=== PATIENT | female | born 1970 | race Caucasian/White ===

== ENCOUNTER 2016-11-10 15:26 | Inpatient (IN) | payer OTHER ==
[~2016-11-10] VITALS: Ht 167.6 cm; Wt 80.0 kg
[~2016-11-10 15:26] MED LIST: ALBU0.086 NEB; ALBU8I INH; CLIN1CAP5 PO; DILA4TAB10 PO; DUONI INH; NAPR500 PO; PENI500T PO; SYMB160A INH; VENTAER INH
[2016-11-10 15:28] VITALS: BP 127/80; PULSE 102; RESP 14; TEMP 99; O2SAT 95
[2016-11-10] MEDS ORDERED: ALBU.5I NEB (17:30)
[2016-11-10] MEDS ORDERED: DILA4TAB2 PO (17:30)
[2016-11-10] MEDS ORDERED: ALBU6.7H INH (17:30)
[2016-11-10] MEDS ORDERED: IBUP800T23 PO (17:30)
[2016-11-10 18:06] VITALS: O2SAT 95
[2016-11-10] MEDS ORDERED: DEXAMETHASONE SOD PHOS 4 MG/ML VIAL IM ONE (18:15)
--- NOTE | 2016-11-10 18:16 | PD ---
HPI Chief Complaint: Skin Problem Time Seen by Provider: 17:33 Travel History International Travel<30 days: No Contact w/Intl Traveler<30days: No Traveled to known affect area: No History of Present Illness HPI 46 years old female complains of coughing congestion and wheezing and infected lesions on the lower extremity. Patient has history of COPD. Patient is a smoker. Patient states that she has increasing coughing congestion shortness of breath for the past few days. Patient states that she has intermittent fever at home recently. Patient also has history of recurrent low extremity pain, redness and discharge from chronic ulcer with infections. PFSH Past Medical History Anemia: Yes Arthritis: Yes Asthma: Yes Autoimmune Disease: Yes (Levido vasculitis) Anxiety: Yes Depression: Yes Heart Rhythm Problems: No Cancer: No Cardiovascular Problems: No High Cholesterol: No Chest Pain: Yes Congestive Heart Failure: No COPD: Yes Diabetes: No Diminished Hearing: No Endocrine: No Genitourinary: No Hypertension: No Immune Disorder: No Implanted Vascular Access Dvce: Yes Musculoskeletal: Yes (healed ulcers, vascular disease) Neurologic: No Psychiatric: Yes Reproductive: No Respiratory: Yes (COPD ) Integumentary: Yes (LIVEDO VASCULITIS) Immunizations Current: Yes Pneumonia: Yes Thyroid Disease: No Ulcer: Yes PNEUMOCCOCAL Vaccine (Year): 2 ?: Not LMP: 10/10/16 Menopausal: Yes : 1 Para: 1 Miscarriage: 0 : 0 Past Surgical History Abdominal Surgery: No Body Medical Devices: plates and screws to left elbow Cardiac Surgery: No Section: Yes (1997) Ear Surgery: No Endocrine Surgery: No Eye Surgery: No Genitourinary Surgery: No Gynecologic Surgery: Yes ( ) Oral Surgery: No Pacemaker: No Thoracic Surgery: No Tonsillectomy: Yes (T/A) Other Surgery: Yes (CYST REMOVED FROM LEFT BREAST) Family History Family Myocardial Infarction: Yes (MOM AND DAD) Social History Alcohol Use: Yes (RARELY) Tobacco Use: No Substance Use: No Allergies-Medications (Allergen,Severity, Reaction): Coded Allergies: No Known Allergies (Verified , 11/10/16) Reported Meds & Prescriptions Reported Meds & Active Scripts Active Reported Proventil Hfa 6.7 GM Inh (Albuterol Sulfate) 90 Mcg/Act Aer 2 Puff INH Q4-6H PRN Albuterol Neb (Albuterol Sulfate) 2.5 Mg/0.5 Ml Neb 2.5 Mg NEB TID NEB PRN Note: The Albuterol Sulfate Inhalation Solution is concentrated and must be diluted. Read complete instructions carefully before using. Ibuprofen 800 Mg Tab 800 Mg PO Q6HR PRN Dilaudid (Hydromorphone HCl) 4 Mg Tab 4 Mg PO Q4H PRN Review of Systems General / Constitutional: Positive: Fever Eyes: No: Visual changes HENT: No: Headaches Cardiovascular: No: Chest Pain or Discomfort Respiratory: Positive: Cough, Shortness of Breath, Wheezing Gastrointestinal: No: Abdominal Pain Genitourinary: No: Dysuria Musculoskeletal: No: Pain Skin: No Rash Neurologic: No: Weakness Psychiatric: No: Depression Endocrine: No: Polydipsia Hematologic/Lymphatic: No: Easy Bruising Physical Exam Narrative GENERAL: Well-nourished, well-developed patient. SKIN: Focused skin assessment warm/dry. HEAD: Normocephalic. EYES: No scleral icterus. No injection or drainage. NECK: Supple, trachea midline. No JVD or lymphadenopathy. CARDIOVASCULAR: Regular rate and rhythm without murmurs, gallops, or rubs. RESPIRATORY: Patient has moderate expiratory wheezes bilaterally with rhonchi bibasilar. GASTROINTESTINAL: Abdomen soft, non-tender, nondistended. MUSCULOSKELETAL: Patient has ulcer lesions on her left lower extremity and right lower extremity. Patient has large ulcer lesions on the medial aspect of left lower leg discharge and redness swelling associate with that. BACK: Nontender without obvious deformity. No CVA tenderness. Neurologic exam normal. Data Data Last Documented VS Vital Signs Date Time Temp Pulse Resp B/P Pulse Ox O2 Delivery O2 Flow Rate FiO2 11/10/16 18:58 92 17 11/10/16 18:57 132/71 98 Room Air 11/10/16 18:06 2 11/10/16 15:28 99.0 Orders Vascular Access Team Consult PRN (11/10/16 17:33) Complete Blood Count With Diff (11/10/16 17:53) Comprehensive Metabolic Panel (11/10/16 17:53) Prothrombin Time / Inr (Pt) (11/10/16 17:53) Act Partial Throm Time (Ptt) (11/10/16 17:53) Blood Culture (11/10/16 17:53) Urinalysis - C+S If Indicated (11/10/16 17:53) Wound Culture And Gram Stain (11/10/16 17:53) Chest, Single Ap (11/10/16 17:53) Iv Access Insert/Monitor (11/10/16 17:53) Ecg Monitoring (11/10/16 17:53) Oximetry (11/10/16 17:53) Lactic Acid (11/10/16 17:53) Albuterol-Ipratropium Neb (Duoneb Neb) (11/10/16 18:15) Dexamethasone Inj (Decadron Inj) (11/10/16 18:15) Vascular Poc Ultrasound (11/10/16 ) Labs Laboratory Tests Test 11/10/16 18:00 White Blood Count 6.3 TH/MM3 Red Blood Count 5.35 MIL/MM3 Hemoglobin 12.9 GM/DL Hematocrit 40.5 % Mean Corpuscular Volume 75.6 FL Mean Corpuscular Hemoglobin 24.1 PG Mean Corpuscular Hemoglobin 31.8 % Concent Red Cell Distribution Width 17.9 % Platelet Count 217 TH/MM3 Mean Platelet Volume 8.7 FL Neutrophils (%) (Auto) 60.8 % Lymphocytes (%) (Auto) 24.6 % Monocytes (%) (Auto) 8.9 % Eosinophils (%) (Auto) 4.5 % Basophils (%) (Auto) 1.2 % Neutrophils # (Auto) 3.8 TH/MM3 Lymphocytes # (Auto) 1.5 TH/MM3 Monocytes # (Auto) 0.6 TH/MM3 Eosinophils # (Auto) 0.3 TH/MM3 Basophils # (Auto) 0.1 TH/MM3 CBC Comment AUTO DIFF Prothrombin Time 11.1 SEC Prothromb Time International 1.0 RATIO Ratio Activated Partial 29.2 SEC Thromboplast Time Sodium Level 137 MEQ/L Potassium Level 4.4 MEQ/L Chloride Level 103 MEQ/L Carbon Dioxide Level 26.4 MEQ/L Anion Gap 8 MEQ/L Blood Urea Nitrogen 8 MG/DL Creatinine 0.73 MG/DL Estimat Glomerular Filtration 86 ML/MIN Rate Random Glucose 74 MG/DL Lactic Acid Level 0.7 mmol/L Calcium Level 8.9 MG/DL Total Bilirubin 0.5 MG/DL Aspartate Amino Transf 18 U/L (AST/SGOT) Alanine Aminotransferase 20 U/L (ALT/SGPT) Alkaline Phosphatase 77 U/L Total Protein 7.4 GM/DL Albumin 3.5 GM/DL MDM Medical Decision Making Medical Screen Exam Complete: Yes Emergency Medical Condition: Yes Medical Record Reviewed: Yes Interpretation(s) Last Impressions Chest X-Ray 11/10/16 2503 Signed Impressions: Service Date/Time: Thursday, November 10, 2016 17:55 - CONCLUSION: No acute disease. Alfredo Navarro MD FACR Differential Diagnosis Differential diagnosis including acute exacerbation of COPD, bronchitis, pneumonia, cellulitis, abscess. Narrative Course 46 years old female with coughing and congestion wheezing and large ulcer lesions bilateral lower extremity. Albuterol with Atrovent unit dose treatment 3. Decadron 8 mg IM. Vancomycin 1 g IV given. Diagnosis Primary Impression: Cellulitis Qualified Code: L03.119 - Cellulitis of lower extremity, unspecified laterality Additional Impression: COPD with acute exacerbation Admitting Information Admitting Physician Requests: Admit Jon Byrd MD Nov 10, 2016 18:16
--- NOTE | 2016-11-10 18:18 | RADRPT ---
EXAM DATE/TIME: 11/10/2016 17:55 [facility] COMPARISON: CHEST SINGLE AP, April 03, 2016, 9:38. INDICATIONS : Shortness of breath and cough for the past two weeks. MEDICAL HISTORY : Chronic obstructive pulmonary disease. SURGICAL HISTORY : None. ENCOUNTER: Initial ACUITY: 2 weeks PAIN SCORE: 5/10 LOCATION: Bilateral chest FINDINGS: A single view of the chest demonstrates the lungs to be symmetrically aerated without evidence of mas s, infiltrate or effusion. The cardiomediastinal contours are unremarkable. Osseous structures are intact. CONCLUSION: No acute disease. Alfredo Navarro MD FACR on November 10, 2016 at 18:16 Board Certified Radiologist. This report was verified electronically.
[2016-11-10 18:28] LABS: AUTOMATED NEUTROPHIL # 3.8 TH/MM3 (1.8-7.7); BASOPHIL # 0.1 TH/MM3 (0-0.2); BASOPHIL % 1.2 % (0.0-2.0); EOSINOPHIL # 0.3 TH/MM3 (0-0.4); EOSINOPHIL % 4.5 % (0.0-4.0); HEMATOCRIT 40.5 % (35.0-46.0); LYMPH % 24.6 % (9.0-44.0); LYMPHOCYTE # 1.5 TH/MM3 (1.0-4.8); MEAN CELL VOLUME 75.6 FL (80.0-100.0); MEAN CORPUSCULAR HEMOGLOBIN 24.1 PG (27.0-34.0); MEAN CORPUSCULAR HGB CONC 31.8 % (32.0-36.0); MONO % 8.9 % (0.0-8.0); NEUT % 60.8 % (16.0-70.0); PLATELET COUNT 217 TH/MM3 (150-450); RED BLOOD COUNT 5.35 MIL/MM3 (4.00-5.30); RED CELL DISTRIBUTION WIDTH 17.9 % (11.6-17.2); WHITE BLOOD COUNT 6.3 TH/MM3 (4.0-11.0)
[2016-11-10 18:33] LABS: HEMO FLAGS AUTO DIFF
[2016-11-10 18:45] LABS: APTT (PATIENT) 29.2 SEC (24.3-30.1); PROTHROMBIN TIME - PATIENT 11.1 SEC (9.8-11.6)
[2016-11-10 18:47] LABS: ALT (GPT) 20 U/L (10-53); ANION GAP 8 MEQ/L (5-15); AST (GOT) 18 U/L (15-37); BICARBONATE 26.4 MEQ/L (21.0-32.0); BLOOD UREA NITROGEN 8 MG/DL (7-18); CHLORIDE 103 MEQ/L (98-107); GLOMERULAR FILTRATION RATE 86 ML/MIN (>89); POTASSIUM 4.4 MEQ/L (3.5-5.1); SODIUM (NA) 137 MEQ/L (136-145)
[2016-11-10 18:52] LABS: ALKALINE PHOSPHATASE 77 U/L (45-117); TOTAL BILIRUBIN ADULT 0.5 MG/DL (0.2-1.0)
[2016-11-10] MEDS: RESP: ALBUTEROL 2.5 MG/IPRATROPIUM 0.5 MG NEB (SCH) INH (18:54)
[2016-11-10 18:57] VITALS: BP 132/71; PULSE 97; RESP 17; O2SAT 98
[2016-11-10 19:11] LABS: OVALOCYTES 1+ (NORMAL)
[2016-11-10 19:12] LABS: PLATELET ESTIMATE SMEAR NORMAL (NORMAL); PLATELET MORPHOLOGY NORMAL (NORMAL); SCAN/DIFF AUTO DIFF CONFIRMED
[2016-11-10] MEDS ORDERED: VANCOMYCIN INJ 1,000 MG in SODIUM CHLOR 0.9% 250 ML INJ 250 ML IV ONE (19:15)
--- NOTE | 2016-11-10 19:21 | HHI.HP ---
HPI Service Family Medicine team B Attending: Dr. Birtton PGY-3: Dr. Elsi Mays PGY-2: Dr. Cao PGY-1: Dr. Kat Primary Care Physician No Primary Care Physician Admission Diagnosis LE cellulitis and ulcer COPD exacerbation Diagnoses: (1) COPD exacerbation (2) Ulcer of left ankle Chief Complaint: shortness of breath LE ulcers International Travel<30 Days: No Contact w/Intl Traveler<30days: No Known Affected Area: No History of Present Illness Patient is a 45-year-old female with history of livedoid vasculitis, chronic skin ulcers, and COPD who presents for evaluation of worsening shortness of breath as well as bilateral lower extremity ulcers. She reports having flu-like symptoms with congestion and sore throat for the past 2.5 weeks. She was seen at a local urgent care and went through two rounds of oral antibiotics but reports no improvement of her symptoms. She also uses Albuterol at home which has not helped either. Endorses associated dry cough, wheezing, chills, and fever (up to 102 last night). No chest pain or palpitations. As for her lower extremity wounds, states that redness and swelling started 3 weeks ago after she started her new job. Again, she went to the urgent care and got Clindamycin but symptoms did not improve. Cellulitis and ulcers have gotten worse. Endorses associated crusting and copious amount of purulent discharge from the ulcers. Of note, she has had multiple episodes of similar ulcers in her LEs in the past related to livedoid vasculitis. However has not had an episode since 2016. Review of Systems Constitutional: COMPLAINS OF: Fever, Chills, Night Sweats, DENIES: Weight gain , Weight loss, Change in appetite Eyes: DENIES: Blurred vision Respiratory: COMPLAINS OF: Cough, Wheezing, Shortness of breath, DENIES: Hemoptysis, Sputum production Cardiovascular: COMPLAINS OF: Dyspnea on Exertion, Lower Extremity Edema, DENIES: Chest pain, Palpitations, Syncope Gastrointestinal: DENIES: Black stools, Bloody stools, Diarrhea, Nausea, Vomiting Integumentary: COMPLAINS OF: Rash Neurologic: DENIES: Headache, Paresthesias Past Family Social History Past Medical History Livedoid vasculitis, diagnosed 15 years ago COPD Chronic lower extremity ulcers GERD Past Surgical History Left elbow surgery with hardware placement Tonsillectomy [place] teeth extraction Left breast cyst removed 1 Reported Medications Proventil Hfa 6.7 GM Inh (Albuterol Sulfate) 90 Mcg/Act Aer 2 Puff INH Q4-6H PRN Albuterol Neb (Albuterol Sulfate) 2.5 Mg/0.5 Ml Neb 2.5 Mg NEB TID NEB PRN Note: The Albuterol Sulfate Inhalation Solution is concentrated and must be diluted. Read complete instructions carefully before using. Ibuprofen 800 Mg Tab 800 Mg PO Q6HR PRN Dilaudid (Hydromorphone HCl) 4 Mg Tab 4 Mg PO Q4H PRN Allergies: Coded Allergies: No Known Allergies (Verified , 11/10/16) Family History Father with diabetes and PVD Mother had hypertension but secondary to breast cancer with mets Grandmother had Alzheimer's disease and heart disease Social History Smoked tobacco, 1/2 to 1 PPD for 25 year but quit 2 years ago. Now smokes occasional E. cigarette Very occasional alcohol use Smokes occasional marijuana, once a week Lives at home with her partner Physical Exam Vital Signs Vital Signs Date Time Temp Pulse Resp B/P Pulse Ox O2 Delivery O2 Flow Rate FiO2 11/10/16 18:58 92 17 11/10/16 18:57 97 17 132/71 98 Room Air 11/10/16 18:06 95 Nasal Cannula 2 11/10/16 17:24 93 26 11/10/16 15:31 11/10/16 15:28 99.0 102 14 127/80 95 Room Air Physical Exam GENERAL: This is a well-nourished, well-developed patient, in no apparent distress. Appears short of breath but able to speak in complete sentences. SKIN: Bilateral lower extremities with significant erythema, left leg with erythema extending to almost mid ray. Both legs with trace edema. There is a large stage 3 ulcerative lesion with purulent discharge on medial aspect of left leg, close to the left ankle. There are some smaller more shallow ulcers on lateral aspect of right leg, close to her ankle. Theses area are extremely tender to palpation. HEAD: Atraumatic. Normocephalic. EYES: Pupils equal round and reactive. Extraocular motions intact. No scleral icterus. No injection or drainage. ENT: Nose without bleeding, purulent drainage or septal hematoma. Throat without erythema, tonsillar hypertrophy or exudate. Uvula midline. Airway patent. NECK: Trachea midline. No JVD or lymphadenopathy. Supple CARDIOVASCULAR: Regular rate and rhythm without murmurs, gallops, or rubs. RESPIRATORY: Diffuse expiratory wheezes throughout all lung bello and bibasilar rhonchi. Coughs with deep inspiration GASTROINTESTINAL: Abdomen soft, non-tender, nondistended. No hepato-splenomegaly , or palpable masses. No guarding. MUSCULOSKELETAL: See "skin" for further details. MAEW but pain with movement of her feet. 2+ dorsalis pedis bilaterally. NEUROLOGICAL: Awake and alert. Cranial nerves II through XII intact. Motor and sensory grossly within normal limits. Five out of 5 muscle strength in all muscle groups. Normal speech. Laboratory Laboratory Tests Test 11/10/16 18:00 White Blood Count 6.3 Red Blood Count 5.35 Hemoglobin 12.9 Hematocrit 40.5 Mean Corpuscular Volume 75.6 Mean Corpuscular Hemoglobin 24.1 Mean Corpuscular Hemoglobin 31.8 Concent Red Cell Distribution Width 17.9 Platelet Count 217 Mean Platelet Volume 8.7 Neutrophils (%) (Auto) 60.8 Lymphocytes (%) (Auto) 24.6 Monocytes (%) (Auto) 8.9 Eosinophils (%) (Auto) 4.5 Basophils (%) (Auto) 1.2 Neutrophils # (Auto) 3.8 Lymphocytes # (Auto) 1.5 Monocytes # (Auto) 0.6 Eosinophils # (Auto) 0.3 Basophils # (Auto) 0.1 CBC Comment AUTO DIFF Differential Comment AUTO DIFF CONFIRMED Platelet Estimate NORMAL Platelet Morphology Comment NORMAL Ovalocytes 1+ Prothrombin Time 11.1 Prothromb Time International 1.0 Ratio Activated Partial 29.2 Thromboplast Time Sodium Level 137 Potassium Level 4.4 Chloride Level 103 Carbon Dioxide Level 26.4 Anion Gap 8 Blood Urea Nitrogen 8 Creatinine 0.73 Estimat Glomerular Filtration 86 Rate Random Glucose 74 Lactic Acid Level 0.7 Calcium Level 8.9 Total Bilirubin 0.5 Aspartate Amino Transf 18 (AST/SGOT) Alanine Aminotransferase 20 (ALT/SGPT) Alkaline Phosphatase 77 Total Protein 7.4 Albumin 3.5 Date/Time Procedure Status Source Growth 11/10/16 18:00 Gram Stain Received Wound Leg Pending 11/10/16 18:00 Wound Culture Received Wound Leg Pending 11/10/16 18:00 Aerobic Blood Culture Received Blood Peripheral Pending 11/10/16 18:00 Anaerobic Blood Culture Received Blood Peripheral Pending Result Diagram: 11/10/16 1800 11/10/16 1800 Imaging Chest X-Ray 11/10/16 3453 Signed Impressions: Service Date/Time: Thursday, November 10, 2016 17:55 - CONCLUSION: No acute disease. Alfredo Navarro MD FACR Assessment and Plan Assessment and Plan Patient is a 45-year-old female with history of livedoid vasculitis, chronic ulcers, COPD, and GERD who presents for evaluation of worsening shortness of breath as well as chronic lower extremity ulcer Code Status FULL Discussed Condition With w/d/w Dr. Britton and medicine team Problem List: (1) Ulcer of left ankle Status: Acute Plan: Patient with history of livedoid vasculitis, recurrent LE ulcers, and osteomyelitis who is admitted for LE cellulitis and ulcers x 3 weeks. She was treated with oral antibiotics as an outpatient but symptoms worsen so she came to the ED for evaluation. Past wound cultures have been positive for s.aureus, sensitive to Vancomycin -Will continue IV Vancomycin 1g Q12hrs. Patient received first dose in ED. -Consult ID for evaluation given her history. 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 Appreciate ID's recommendations -Wound care consult -Check ESR and CRP. Consider imaging to rule out osteomyelitis if ESR is elevated -Dilaudid 4mg po prn pain -Keep LE elevated -Wound and blood cultures pending (2) Cellulitis Status: Acute Plan: See plan above (3) COPD exacerbation Status: Acute Plan: Patient with COPD exacerbation. Had URI symptoms 2.5 weeks ago that did not improve with outpatient oral antibiotics. Symptoms have worsen over the past couple of days. Lung exam significant for diffuse expiratory wheezes and bibasilar rhonchi. VSSAF, O2 sats stable on 2L. No leukocytosis. Normal lactic acid level. Chest x- ray unremarkable. -Patient received 8mg Decadron and Albuterol treatment in the ED. Symptoms somewhat improved s/p treatment. -Continue breathing treatment with Duoneb Q4hr myron and Albuterol Q4hrs prn -Prednisone 40mg po daily -Start Azithromycin 500mg -Monitor O2 and provide supplemental O2 prn (4) Nutrition, metabolism, and development symptoms Status: Acute Plan: Diet: Regular as tolerated Fluids: HLIV; patient tolerating po Electrolytes: WNL. Continue to monitor (5) Prophylactic measure Status: Acute Plan: DVT ppx: Heparin 5000mg BID GI ppx: Protonix 40mg daily since patient is getting steroids Physician Certification 2 Midnight Certification Type: Admission for Inpatient Services Order for Inpatient Services The services are ordered in accordance with Medicare regulations or non- Medicare payer requirements, as applicable. In the case of services not specified as inpatient-only, they are appropriately provided as inpatient services in accordance with the 2-midnight benchmark. Estimated LOS (days): 3 3 days is the estimated time the patient will need to remain in the hospital, assuming treatment plan goals are met and no additional complications. Post-Hospital Plan: Home Problem Qualifiers (1) Cellulitis: Qualified Code: L03.119 - Cellulitis of lower extremity, unspecified laterality Gabrielle Mays MD R3 Nov 10, 2016 19:21
[2016-11-10] MEDS ORDERED: NALOXONE HCL 0.4 MG/ML AMP IV PRN (20:00)
[2016-11-10] MEDS ORDERED: ACETAMINOPHEN 325 MG TAB PO PRN (20:00)
[2016-11-10] MEDS ORDERED: SODIUM CHLORIDE 0.9% FLUSH 10 ML FLUSH IV FLUSH PRN (20:00)
[2016-11-10] MEDS ORDERED: BISACODYL 10 MG SUPP RECTAL PRN (20:00)
[2016-11-10] MEDS ORDERED: ONDANSETRON HCL 4 MG/2 ML VIAL IVP PRN (20:00)
[2016-11-10] MEDS ORDERED: RESP: ALBUTEROL 2.5 MG/3 ML NEB (PRN) INH (20:15)
[2016-11-10] MEDS: RESP: ALBUTEROL 2.5 MG/IPRATROPIUM 0.5 MG NEB (SCH) NEB (20:22)
[2016-11-10] MEDS: SODIUM CHLORIDE 0.9% FLUSH 10 ML FLUSH IV FLUSH SCH (20:56)
[2016-11-10 20:58] LABS: MAGNESIUM 2.2 MG/DL (1.5-2.5)
[2016-11-10 21:54] VITALS: BP 129/74; PULSE 90; RESP 20; TEMP 98.5; O2SAT 93
[2016-11-10] MEDS: HYDROmorphone HCL 4 MG TAB PO PRN (22:15)
[2016-11-10] MEDS: HEPARIN SODIUM - SQ 10,000 UNITS/ML VIAL SQ SCH (22:16)
[2016-11-10 22:25] VITALS: O2SAT 94
[2016-11-10] MEDS: PANTOPRAZOLE SOD 40 MG DELAYED RELEASE TAB PO SCH (23:51)
[2016-11-10] MEDS: AZITHROMYCIN 250 MG TAB PO SCH (23:51)
[2016-11-11] VITALS (11 sets, daily range): BP systolic 105–156; BP diastolic 55–97; PULSE 75–108; RESP 12–21; TEMP 97.4–98.7; O2SAT 93–96
[2016-11-11] MEDS: HYDROmorphone HCL 4 MG TAB PO PRN ×6 (02:24→22:41)
--- NOTE | 2016-11-11 07:14 | HHI.FPPN ---
Subjective Remarks Elizabeth Scruggs is a 46yo lady with h/o livedoid vasculitis, chronic skin ulcers and COPD who presents for worsening lower extremity ulcers as well as worsening SOB. Regarding her SOB, she has had congestion and sore throat x 2+ weeks. + dry cough, wheeze, chills, fever (Tmax 102). No improvement with antibiotic course from local urgent care, and no improvement with albuterol at home. Regarding her skin ulcers, she has had redness x 3 weeks. No improvement with oral clindamycin. + purulent discharge. For further details, please see resident H&P. This morning, she is seen with her partner at the bedside. She has had a frequent cough. She is 95% on room air. She reports continued pain in her legs from the wound and is waiting dressing change by wound care. ROS: + cough, + wheeze, + SOB. No chest pain. No fevers overnight. + pain in legs. All other systems reviewed are negative. PMH/PSxH/SocHx/FamHx: Per resident H&P. Significant for: Livedoid vasculitis, chronic skin ulcers, COPD, GERD. Left elbow surgery, tonsillectomy, cyst removal L breast, . Fam hx of DM II and PVD. Prior tobacco use, 25 pack year history but quit 2014 (now e-cigarettes). + marijuana use and occasional alcohol. Objective Vitals Vital Signs Date Time Temp Pulse Resp B/P Pulse Ox O2 Delivery O2 Flow Rate FiO2 11/11/16 04:42 97.7 83 20 126/70 96 11/11/16 01:21 98.1 108 21 156/97 95 11/11/16 01:20 98.7 108 20 120/61 93 11/11/16 01:11 94 Nasal Cannula 2.00 11/10/16 22:25 Nasal Cannula 2.00 11/10/16 21:54 98.5 90 20 129/74 93 11/10/16 18:58 92 17 11/10/16 18:57 97 17 132/71 98 Room Air 11/10/16 18:06 95 Nasal Cannula 2 11/10/16 17:24 93 26 11/10/16 15:31 11/10/16 15:28 99.0 102 14 127/80 95 Room Air I/O 4/10/17 411/10/16 11/11/16 11/11/16 11/11/16 07:00 15:00 23:00 07:00 15:00 23:00 Intake Total 1200 ml Balance 1200 ml Intake Oral 1200 ml # Voids 3 # Bowel Movements 3 Result Diagram: 11/10/16179911/10/161799 Objective Remarks GENERAL: in NAD, no resp distress, nontoxic. Accompanied by partner. Talks in complete sentences, but frequent dry cough during exam/interview HEENT: NCAT, EOMI, no scleral icterus. MMM. OP clear. NECK: Supple, no meningeal signs. CV: RRR, S1 S2. No murmurs CHEST/PULM: Decreased air movement. + end exp wheeze. No retractions, no nasal flaring. ABD/GI: +BS, soft, nondistended, nontender EXT: Skin exam as below. NEURO: Awake, alert. Normal muscle tone. Grossly nonfocal. SKIN: Erythema of bilateral lower extremities, distal 1/3 of R lower extremity and lower 1/2 of left lower extremity. Trace edema at ankles. Left lower extremity with 5cm ulcer, stage 3, along medial aspect of distal leg. Lateral aspect of R lower leg with shallow small ulcerations. + tenderness to palpation. PSYCH: Mood and affect are appropriate. Speech fluent. Does not appear to respond to internal stimuli. A/P Assessment and Plan Patient is a 45-year-old female with history of livedoid vasculitis, chronic ulcers, COPD, and GERD who presents for evaluation of worsening shortness of breath as well as chronic lower extremity ulcer Attending Attestation Patient seen, examined, and discussed with resident team. The patient has been seen and examined. The chart and all resident notes have been reviewed. I agree that inpatient care is appropriate and that a two midnight stay is expected for the reasons documented in the resident history and physical. I have discussed this with the resident and certify the resident s order for inpatient admission. Problem List: (1) Ulcer of left ankle Status: Acute Plan: Patient with history of livedoid vasculitis, recurrent LE ulcers, and osteomyelitis who is admitted for LE cellulitis and ulcers x 3 weeks. She was treated with oral antibiotics as an outpatient but symptoms worsen so she came to the ED for evaluation. Past wound cultures have been positive for S.aureus, sensitive to Vancomycin -Will continue IV Vancomycin 1g Q12hrs. Patient received first dose in ED. -Consult ID for evaluation given her history. Will likely need termite exterminator helper antibiotics. Appreciate ID's recommendations -Wound care consult -ESR reassuring at this time; will hold off on imaging. -Dilaudid 4mg po prn pain -Keep LE elevated -Wound and blood cultures pending. Add Aspirin 325mg to regimen (pt reports taking this at home). Consider also Dipyridamole as additional treatment, based on up to date recs. (2) Cellulitis Status: Acute Plan: See plan above (3) COPD exacerbation Status: Acute Plan: Patient with COPD exacerbation. Had URI symptoms 2.5 weeks ago that did not improve with outpatient oral antibiotics. Symptoms have worsen over the past couple of days. Lung exam significant for diffuse expiratory wheezes and bibasilar rhonchi. VSSAF, O2 sats stable on 2L. No leukocytosis. Normal lactic acid level. Chest x- ray unremarkable. -Patient received 8mg Decadron and Albuterol treatment in the ED. Symptoms somewhat improved s/p treatment. -Continue breathing treatment with Duoneb Q4hr myron and Albuterol Q4hrs prn -Prednisone 40mg po daily -Continue Azithromycin 500mg -Monitor O2 and provide supplemental O2 prn. 95% on room air during exam/ interview. -Incentive spirometer. (4) Microcytosis Status: Chronic Plan: Suspect secondary to infection / vasculitis. Will monitor. No sign of anemia. Problem Qualifiers (1) Cellulitis: Qualified Code: L03.119 - Cellulitis of lower extremity, unspecified laterality Sridevi Britton MD Nov 11, 2016 07:13
[2016-11-11] MEDS: RESP: ALBUTEROL 2.5 MG/IPRATROPIUM 0.5 MG NEB (SCH) NEB ×4 (08:18→21:56)
[2016-11-11] MEDS: HEPARIN SODIUM - SQ 10,000 UNITS/ML VIAL SQ SCH ×2 (08:23→20:49)
[2016-11-11] MEDS: SODIUM CHLORIDE 0.9% FLUSH 10 ML FLUSH IV FLUSH SCH ×2 (08:23→20:49)
[2016-11-11] MEDS: PANTOPRAZOLE SOD 40 MG DELAYED RELEASE TAB PO SCH (08:23)
[2016-11-11] MEDS: VANCOMYCIN INJ 1,000 MG in SODIUM CHLOR 0.9% 250 ML INJ 250 ML IV SCH ×2 (08:23→20:50)
[2016-11-11] MEDS: predniSONE 20 MG TAB PO SCH (08:23)
[2016-11-11] MEDS: AZITHROMYCIN 250 MG TAB PO SCH (10:32)
[2016-11-11 12:07] LABS: AUTOMATED NEUTROPHIL # 5.9 TH/MM3 (1.8-7.7); BASOPHIL # 0.1 TH/MM3 (0-0.2); BASOPHIL % 0.8 % (0.0-2.0); EOSINOPHIL % 0.1 % (0.0-4.0); HEMATOCRIT 37.2 % (35.0-46.0); HEMO FLAGS AUTO DIFF; LYMPH % 8.8 % (9.0-44.0); LYMPHOCYTE # 0.6 TH/MM3 (1.0-4.8); MEAN CELL VOLUME 74.7 FL (80.0-100.0); MEAN CORPUSCULAR HGB CONC 32.1 % (32.0-36.0); MONO % 3.4 % (0.0-8.0); NEUT % 86.9 % (16.0-70.0); PLATELET COUNT 169 TH/MM3 (150-450); RED BLOOD COUNT 4.98 MIL/MM3 (4.00-5.30); RED CELL DISTRIBUTION WIDTH 17.7 % (11.6-17.2); WHITE BLOOD COUNT 6.8 TH/MM3 (4.0-11.0)
[2016-11-11 12:15] LABS: BICARBONATE 24.6 MEQ/L (21.0-32.0); POTASSIUM 4.3 MEQ/L (3.5-5.1)
--- NOTE | 2016-11-11 12:29 | MB ---
cc: SOCORRO RIOS MD DATE OF CONSULTATION 11/11/[address] Mays REASON FOR CONSULTATION Bilateral lower extremity cellulitis and ulceration of purulent discharge. HISTORY OF PRESENT ILLNESS This is a 46-year-old white male who has a history of livedo vasculitis. The patient has a history of recurrent ulcerations of the extremities as a results of the vasculitis. She has had infected wounds treated on several occasions in the past. She developed worsening of her Livedo skin lesions about three weeks ago and was progressed to form ulcerations on her legs. She was seen at an Urgent Care and was given clindamycin which she took for 10 days and did not improve. She also developed upper respiratory flu-like symptoms and developed fever and presented to the emergency department for evaluation. She states that whenever she gets sick with respiratory symptoms, her COPD worsens and she was having difficulty with respirations, was coughing up sputum as well. She has been started on antibiotics and cultures have been taken from her lower extremities. She was also evaluated by wound care and has new dressings placed on two ulcerations on her legs. She has a large ulceration on the left leg at the medial tibia region of the leg above the ankle. She also has shallow ulcerations at the right leg. There are two ulcerations on the right leg. She has pain at the areas where the ulcers are located. A culture was taken from the wound and it is pending. The gram stain shows rare gram-positive cocci in pairs. Blood culture has no growth. White blood cell count is normal. The patient notes that she was doing well and was in remission from the Livedo reticularis standpoint for about a year. She states that, however, she has been working a lot more lately and was on her feet a lot more and her feet began to swell up and the Livedo patches of erythema on the legs started to show up again. She states that her wounds from previous treatment of ulcerations had completely healed up before this started to recur again this time. The patient notes that she was having nausea, vomiting, diarrhea and shortness of breath along with fever. She has been afebrile since admission. Chest x-ray showed no acute disease. The patient notes that the swelling of her legs has improved. Prior to admission, she had legs edema worsening along with purulent drainage coming from the left tibia wound. PAST MEDICAL HISTORY 1. Livedo vasculitis 2. COPD 3. GERD 4. History of multiple infected ulcers of the legs. 5. Tonsillectomy 6. Left breast cyst removal 7. Left elbow surgery with hardware placement. ALLERGIES NO KNOWN DRUG ALLERGIES. MEDICATIONS 1. Vancomycin 2. Protonix 3. Prednisone 4. Aspirin 5. Azithromycin 6. Albuterol inhaler 7. Dilaudid SOCIAL HISTORY No tobacco, occasional alcohol. Positive marijuana use. FAMILY HISTORY Significant for diabetes in the patient's father. REVIEW OF SYSTEMS Pertinent features mentioned above including shortness of breath, nausea, diarrhea, edema of the extremities, and ulcerations of the extremities. PHYSICAL EXAMINATION This is a well-developed female who is in no acute distress. She is awake and alert and oriented. VITAL SIGNS: Include temperature 97.4, BP 105/55, respirations 16, heart rate 75. HEENT: The head is atraumatic. Extraocular movements grossly intact, pupils reactive to light. No icterus. Oropharynx moist mucosa. No lesions. NECK: Supple. No adenopathy. No swelling. LUNGS: Diffuse rhonchi and bilateral wheezing. HEART: Regular S1-S2 without murmurs. ABDOMEN: Bowel sounds present, soft, no tenderness appreciated. RECTAL: Not performed. EXTREMITIES: The left lower extremity has a dressing in place with overlying ulceration at the medial tibia above the left ankle. The right tibia has two ulcerations which are shallow and superficial. There is mild erythema around the ulcerations. SKIN: No diffuse rash. The patient has tatoos at the upper extremities and also lower extremities below the knee. NEUROLOGIC: No gross focal findings. PSYCH: The patient calm, pleasant and cooperative. LABORATORY DATA WBC 6.3, platelets 217, sedimentation rate 17, hemoglobin 12.9. Creatinine 0.73, BUN 8, sodium 137. Liver function tests normal. IMPRESSION 1. Cellulitis and infected ulcerated wounds of the lower extremities in a patient with Livedo reticularis which is the predisposing factor for recurrence of infected wounds. 2. Wound culture pending. RECOMMENDATIONS 1. Continue vancomycin 2. Continue azithromycin 3. Follow the wound culture to determine antibiotic treatment. The patient may or may not require intravenous antibiotics depending on the cultures. The gram stain revealed gram-positive cocci and therefore the vancomycin is appropriate for now. Thank you this consultation. The patient's progress will be monitored and further recommendations will be made on followup. MD GOPAL Medrano /11:44 AM /12:08 PM [facility]
[2016-11-11 12:49] LABS: SCAN/DIFF AUTO DIFF CONFIRMED
[2016-11-12] VITALS (8 sets, daily range): BP systolic 130–147; BP diastolic 64–73; PULSE 80–97; RESP 16–18; TEMP 97.9–98.2; O2SAT 91–97
[2016-11-12] MEDS ORDERED: HYDROmorphone HCL PF 1 MG/ML VIAL IV PUSH PRN (01:30)
[2016-11-12] MEDS ORDERED: MORPHINE SULFATE 4 MG/ML INJ IV PUSH PRN ×2 (01:30)
[2016-11-12] MEDS ORDERED: LORazepam 2 MG/ML VIAL IV PUSH PRN (01:30)
[2016-11-12] MEDS ORDERED: TEMAZEPAM 15 MG CAP PO PRN (01:30)
[2016-11-12] MEDS: HYDROmorphone HCL PF 1 MG/ML VIAL IV PUSH PRN ×5 (01:31→22:48)
[2016-11-12] MEDS: HYDROmorphone HCL 4 MG TAB PO PRN ×5 (03:07→20:49)
[2016-11-12] MEDS ORDERED: ZOLPIDEM TARTRATE 5 MG TAB PO PRN (07:00)
[2016-11-12] MEDS ORDERED: LORazepam 1 MG TAB PO PRN (07:00)
[2016-11-12] MEDS: RESP: ALBUTEROL 2.5 MG/IPRATROPIUM 0.5 MG NEB (SCH) NEB ×4 (08:00→21:17)
[2016-11-12] MEDS: VANCOMYCIN INJ 1,000 MG in SODIUM CHLOR 0.9% 250 ML INJ 250 ML IV SCH ×2 (08:59→20:53)
[2016-11-12] MEDS: HEPARIN SODIUM - SQ 10,000 UNITS/ML VIAL SQ SCH ×2 (08:59→21:01)
[2016-11-12] MEDS: PANTOPRAZOLE SOD 40 MG DELAYED RELEASE TAB PO SCH (08:59)
[2016-11-12] MEDS: AZITHROMYCIN 250 MG TAB PO SCH (08:59)
[2016-11-12] MEDS: ASPIRIN 325 MG TAB PO SCH (08:59)
[2016-11-12] MEDS: predniSONE 20 MG TAB PO SCH (08:59)
[2016-11-12] MEDS: SODIUM CHLORIDE 0.9% FLUSH 10 ML FLUSH IV FLUSH SCH ×2 (09:00→20:58)
--- NOTE | 2016-11-12 11:24 | HHI.FPPN ---
Subjective Remarks Sitting up in bed, no distress. Still coughing and has congestion, but reports her breathing is much improved. Continues to have wheezing but now more expiratory rather than inspiratory and expiratory. She reports wounds appear better after diligent wound care by the wound care nurses. She also reports she gets improvement with symptoms anytime she is put on heparin. (Leo Cao MD R2) Objective Vitals Vital Signs Date Time Temp Pulse Resp B/P Pulse Ox O2 Delivery O2 Flow Rate FiO2 11/12/16 08:05 97.9 86 16 130/70 93 11/12/16 04:00 98.1 80 18 133/69 94 11/12/16 00:00 98.1 91 18 147/70 93 11/11/16 21:58 96 Nasal Cannula 2.00 11/11/16 20:00 97.9 84 18 123/58 95 11/11/16 20:00 Nasal Cannula 2.00 11/11/16 17:07 94 Nasal Cannula 2.00 11/11/16 16:00 98.2 77 20 114/58 93 11/11/16 12:00 97.7 75 12 123/60 96 I/O 11/11/16 11/11/16 11/11/16 11/12/16 11/12/16 11/12/16 07:00 15:00 23:00 07:00 15:00 23:00 Intake Total 1200 ml 360 ml 480 ml 480 ml Balance 1200 ml 360 ml 480 ml 480 ml Intake Oral 1200 ml 360 ml 480 ml 480 ml # Voids 3 2 2 # Bowel Movements 3 1 0 0 (Leo Cao MD R2) Result Diagram: 11/11/16 1144 11/11/16 1144 Imaging Last 72 hours Impressions Chest X-Ray 11/10/16 6553 Signed Impressions: Service Date/Time: Thursday, November 10, 2016 17:55 - CONCLUSION: No acute disease. Alfredo Navarro MD FACR Objective Remarks GENERAL: in NAD, sitting up in bed, no respiratory distress, coughing but less than yesterday HEENT: NCAT, EOMI, no scleral icterus. MMM. OP clear. NECK: Supple, no meningeal signs. CV: RRR, S1 S2. No murmurs CHEST/PULM: Expiratory wheezing, but inspiratory wheezing gone ABD/GI: +BS, soft, nondistended, nontender EXT: Skin exam as below. NEURO: Awake, alert. SKIN: Erythema of bilateral lower extremities, distal 1/3 of R lower extremity and lower 1/2 of left lower extremity. Trace edema at ankles. Left lower extremity with 5cm ulcer, stage 3, along medial aspect of distal leg. Lateral aspect of R lower leg with shallow small ulcerations. + tenderness to palpation. Wounds appear better than yesterday. PSYCH: Mood and affect are appropriate. Speech fluent. Does not appear to respond to internal stimuli. (Leo Cao MD R2) A/P Assessment and Plan 45-year-old female with history of livedoid vasculitis, chronic ulcers, COPD, and GERD who presents for evaluation of worsening shortness of breath as well as chronic lower extremity ulcer from livedoid vasculitis Discharge Planning Pending resolution of COPD exacerbation, recommendations on antibiotics from infectious disease, wound culture results (Leo Cao MD R2) Attending Attestation Patient seen and examined, discussed with resident team. I agree with assessment and management as documented and discussed with me. Pt reports that wound appears better. She is very appreciative of the care she has received. She feels her breathing is a little better. On exam, still with expiratory wheeze, but better air movement. Await wound culture. Continue vancomycin. (Sridevi Britton MD) Problem List: (1) Ulcer of left ankle Status: Acute Plan: Patient with history of livedoid vasculitis, recurrent LE ulcers, and osteomyelitis who is admitted for LE cellulitis and ulcers x 3 weeks. She was treated with oral antibiotics as an outpatient but symptoms worsened so she came to the ED for evaluation. Past wound cultures have been positive for S.aureus, sensitive to Vancomycin. -Will continue IV Vancomycin 1g Q12hrs. -Consult ID for evaluation given her history. Will likely need fpc antibiotics. Appreciate ID's recommendations -Wound care consult, appreciate assistance. -ESR reassuring at this time; will hold off on imaging. -Dilaudid 4mg po prn pain -Keep LE elevated -Wound and blood cultures pending. - Aspirin 325 mg for livedoid vasculitis. Will add Dipyridamole to her regiment. Can consider Pentoxifylline depending on how she does. - Anticoagulant therapy can be beneficial but would need to follow INR's closely. NOAC may be more difficult due to financial problems. - Gabapentin 300 mg qHS for pain management (2) COPD exacerbation Status: Acute Plan: Patient with COPD exacerbation. Had URI symptoms 2.5 weeks ago that did not improve with outpatient oral antibiotics. Symptoms have worsen over the past couple of days. Lung exam significant for diffuse expiratory wheezes and bibasilar rhonchi. VSSAF, O2 sats stable on 2L. No leukocytosis. Normal lactic acid level. Chest x- ray unremarkable. -Patient received 8mg Decadron and Albuterol treatment in the ED. -Continue breathing treatment with Duoneb Q4hr myron and Albuterol Q4hrs prn -Prednisone 40mg po daily -Continue Azithromycin 500mg -Monitor O2 and provide supplemental O2 prn. -Incentive spirometer. - Would benefit from Pulmicort daily but after discussion with patient, unlikely to be able to afford it as she is self-pay. (3) No contraindication to deep vein thrombosis (DVT) prophylaxis Status: Acute Plan: Continue Lovenox 40 mg qday, incidentally this helps her livedoid vasculitis (Leo Cao MD R2) Leo Cao MD R2 Nov 12, 2016 11:24 Sridevi Britton MD Nov 12, 2016 20:23
[2016-11-12 11:58] LABS: RHEUMATOID FACTOR TRIGGER LESS THAN 10.0 IU/ML (0.0-14.9)
[2016-11-12] MEDS: DIPYRIDAMOLE 75 MG PO SCH ×2 (16:56→18:36)
[2016-11-12] MEDS ORDERED: GABAPENTIN 300 MG CAP PO SCH (21:00)
[2016-11-13] VITALS: BP 141/104; PULSE 99; RESP 18; TEMP 97.9; O2SAT 93
[2016-11-13] MEDS: HYDROmorphone HCL 4 MG TAB PO PRN ×5 (01:03→17:31)
[2016-11-13] MEDS: DIPYRIDAMOLE 75 MG PO SCH ×4 (01:05→17:27)
[2016-11-13] MEDS: HYDROmorphone HCL PF 1 MG/ML VIAL IV PUSH PRN ×3 (03:03→11:28)
[2016-11-13 04:00] VITALS: BP 131/68; PULSE 86; RESP 18; TEMP 98; O2SAT 92
[2016-11-13 07:31] VITALS: O2SAT 95
[2016-11-13] MEDS: RESP: ALBUTEROL 2.5 MG/IPRATROPIUM 0.5 MG NEB (SCH) NEB ×3 (07:31→16:11)
[2016-11-13 08:00] VITALS: BP 148/78; PULSE 100; RESP 20; TEMP 97.7; O2SAT 91
[2016-11-13] MEDS: SODIUM CHLORIDE 0.9% FLUSH 10 ML FLUSH IV FLUSH SCH (09:00)
[2016-11-13] MEDS: PANTOPRAZOLE SOD 40 MG DELAYED RELEASE TAB PO SCH (09:16)
[2016-11-13] MEDS: predniSONE 20 MG TAB PO SCH (09:16)
[2016-11-13] MEDS: ASPIRIN 325 MG TAB PO SCH (09:16)
[2016-11-13] MEDS: AZITHROMYCIN 250 MG TAB PO SCH (09:16)
[2016-11-13] MEDS: VANCOMYCIN INJ 1,000 MG in SODIUM CHLOR 0.9% 250 ML INJ 250 ML IV SCH (09:17)
[2016-11-13] MEDS: HEPARIN SODIUM - SQ 10,000 UNITS/ML VIAL SQ SCH (09:27)
[2016-11-13 12:00] VITALS: BP 134/68; PULSE 96; RESP 20; TEMP 97.6; O2SAT 93
--- NOTE | 2016-11-13 12:12 | HHI.FPPN ---
Subjective Remarks Overnight pain in much better control, not needing as much of breakthrough Dilaudid. No CP. SOB improving but still some wheezing. Not nearly as bad as when she came into the hospital per patient. No abdominal pain. Leg wounds improving. (Smith Kat MD R1) Objective Vitals Vital Signs Date Time Temp Pulse Resp B/P Pulse Ox O2 Delivery O2 Flow Rate FiO2 11/13/16 08:00 97.7 100 20 148/78 91 11/13/16 07:31 95 21 11/13/16 04:00 98.0 86 18 131/68 92 11/13/16 00:00 97.9 99 18 141/104 93 11/12/16 21:19 95 21 11/12/16 20:07 98.1 85 17 138/64 92 11/12/16 20:00 Room Air 11/12/16 17:01 97 Nasal Cannula 21 11/12/16 16:07 98.0 83 16 142/73 91 11/12/16 12:07 98.2 97 16 134/64 91 I/O 11/12/16 11/12/16 11/12/16 11/13/16 11/13/16 11/13/16 07:00 15:00 23:00 07:00 15:00 23:00 Intake Total 480 ml 360 ml 360 ml 960 ml Balance 480 ml 360 ml 360 ml 960 ml Intake Oral 480 ml 360 ml 360 ml 960 ml # Voids 2 6 8 4 # Bowel Movements 0 1 1 1 (Smith Kat MD R1) Result Diagram: 11/11/16 1144 11/12/16 1026 Objective Remarks GENERAL: in NAD, sitting up in bed, no respiratory distress CV: NRRR, S1/S2 normal. No murmurs CHEST/PULM: Mild bilateral expiratory wheezing, improved from previously. Speaking in full sentences. ABD/GI: +BS, soft, nondistended, nontender EXT: Skin exam as below. NEURO: Awake, alert. SKIN: Erythema of bilateral lower extremities, distal 1/3 of R lower extremity and lower 1/2 of left lower extremity. Trace edema at ankles. Left lower extremity with 5cm ulcer, stage 3, along medial aspect of distal leg. Lateral aspect of R lower leg with shallow small ulcerations. + tenderness to palpation. Wound wrapped per wound care nursing recommendations. (Smith Kat MD R1) A/P Assessment and Plan 45-year-old female with history of livedoid vasculitis, chronic ulcers, COPD, and GERD who presents for evaluation of worsening shortness of breath as well as chronic lower extremity ulcer from livedoid vasculitis Discharge Planning Pending resolution of COPD exacerbation, recommendations on antibiotics from infectious disease, wound culture results (Smith Kat MD R1) Attending Attestation Patient seen and examined, discussed with resident team. I agree with assessment and management as documented and discussed with me. Wound culture resulted and patient has been changed to Levaquin. Pain is under decent control Discussed with case management - pt will have blue card at d/c. Discharge home today. (Sridevi Brtiton MD) Problem List: (1) Ulcer of left ankle Status: Acute Plan: Patient with history of livedoid vasculitis, recurrent LE ulcers, and osteomyelitis who is admitted for LE cellulitis and ulcers x 3 weeks. She was treated with oral antibiotics as an outpatient but symptoms worsened so she came to the ED for evaluation. Past wound cultures have been positive for S.aureus, sensitive to Vancomycin. Wound Cx growing Staph aureus and Psuedomonas Aeruginosa, both sensitive to Levaquin, Gentamycin Blood Cx NGTD x3 ID consulted, appreciate recommendations -Will continue IV Vancomycin 1g Q12hrs until discussed with ID - Add Levaquin 750 mg IV Q24H -Wound care consult, appreciate assistance -Dilaudid 4mg po prn pain, 2 mg IV for breakthrough Q4H -Keep LE elevated - Aspirin 325 mg PO daily and dipyridamole 75 mg PO Q6H for livedoid vasculitis treatment - Anticoagulant therapy can be beneficial but would need to follow INR's closely. NOAC may be more difficult due to financial problems. - Gabapentin 300 mg HS for pain management (2) COPD exacerbation Status: Acute Plan: Patient with COPD exacerbation. Had URI symptoms 2.5 weeks ago that did not improve with outpatient oral antibiotics. Symptoms have worsen over the past couple of days. Lung exam significant for diffuse expiratory wheezes and bibasilar rhonchi. VSSAF, O2 sats stable on 2L. No leukocytosis. Normal lactic acid level. Chest x- ray unremarkable. -Continue breathing treatment with Duoneb Q4hr myron and Albuterol Q4hrs prn -Prednisone 40mg po daily -S/p Azithromycin 500 mg PO daily x4 (now on Levaquin for wound infection, so Azithromycin discontinued) -Monitor O2 and provide supplemental O2 prn. -Incentive spirometer. - Would benefit from Pulmicort daily but after discussion with patient, unlikely to be able to afford it as she is self-pay. (3) No contraindication to deep vein thrombosis (DVT) prophylaxis Status: Acute Plan: Continue Lovenox 40 mg qday, incidentally this helps her livedoid vasculitis sdw Dr. Nash Britton (Smith Kat MD R1) Smith Kat MD R1 Nov 13, 2016 12:12 Sridevi Britton MD Nov 13, 2016 16:43
[2016-11-13] MEDS ORDERED: LEVOFLOXACIN 750 MG PREMIX INJ 150 ML IV SCH (13:00)
[2016-11-13] MEDS ORDERED: PRED20 PO (13:46)
[2016-11-13] MEDS ORDERED: ASPI325T PO (13:46)
[2016-11-13] MEDS ORDERED: NEUR300C PO (13:46)
[2016-11-13] MEDS ORDERED: PULM180I INH (13:46)
[2016-11-13] MEDS ORDERED: DILA4TAB2 PO (13:46)
[2016-11-13] MEDS ORDERED: DIPY75TA PO (13:46)
--- NOTE | 2016-11-13 13:47 | HHI.DCPOC ---
Discharge Care Plan Diagnosis: (1) Livedoid vasculitis (2) Ulcer of left ankle (3) COPD exacerbation (4) Chronic pain Goals to Promote Your Health * To prevent worsening of your condition and complications * To maintain your health at the optimal level Directions to Meet Your Goals Take your medications as prescribed Follow your dietary instruction Follow activity as directed Keep your appointments as scheduled Take your immunizations and boosters as scheduled If your symptoms worsen call your PCP, if no PCP go to Urgent Care Center or Emergency Room Smoking is Dangerous to Your Health. Avoid second hand smoke Call the 24-hour hour crisis hotline for domestic abuse at Smith Kat MD R1 Nov 13, 2016 1:47 pm
[2016-11-13] MEDS ORDERED: LEVO750T33 PO (13:48)
[2016-11-13] MEDS ORDERED: ALBU.5I NEB (14:04)
[2016-11-13] MEDS ORDERED: ALBU6.7H INH (14:04)
[2016-11-13] MEDS ORDERED: ALBUTEROL SULFATE 90 MCG/ACT HFA 18 GM INHALER INH PRN (14:15)
[2016-11-13] MEDS ORDERED: BUDESONIDE-FORMOTEROL 160/4.5 MCG INHALER INH SCH (14:15)
--- NOTE | 2016-11-13 18:55 | HHI.DS ---
Discharge Summary Admission Date Nov 10, 2016 at 7:19 pm Discharge Date: Nov 13, 2016 Admitting Diagnosis LE cellulitis and ulcer COPD exacerbation (1) Ulcer of left ankle Diagnosis: Principal Plan: Patient with history of livedoid vasculitis, recurrent LE ulcers, and osteomyelitis who is admitted for LE cellulitis and ulcers x 3 weeks. She was treated with oral antibiotics as an outpatient but symptoms worsened so she came to the ED for evaluation. Past wound cultures have been positive for S.aureus, sensitive to Vancomycin. Wound Cx growing Staph aureus and Psuedomonas Aeruginosa, both sensitive to Levaquin, Gentamycin Blood Cx NGTD x3 - ID consulted, appreciate recommendations - Discharge with Levaquin 750 mg PO x3 weeks -Wound care consult, appreciate assistance - Continue daily dressing changes at home, f/u with PCP -Dilaudid 4mg po Q4-6H prn pain - Aspirin 325 mg PO daily and dipyridamole 75 mg PO Q6H for livedoid vasculitis treatment - Anticoagulant therapy can be beneficial but would need to follow INR's closely ; to be discussed with new PCP - Gabapentin 300 mg BID for pain management (2) COPD exacerbation Diagnosis: Principal Plan: Patient with COPD exacerbation. Had URI symptoms 2.5 weeks ago that did not improve with outpatient oral antibiotics. Symptoms have worsen over the past couple of days. Lung exam significant for diffuse expiratory wheezes and bibasilar rhonchi. VSSAF, O2 sats stable on 2L. No leukocytosis. Normal lactic acid level. Chest x- ray unremarkable. -Continue breathing treatment with Duoneb Q4hr myron and Albuterol Q4hrs prn -Prednisone 40mg po daily -S/p Azithromycin 500 mg PO daily x4 (now on Levaquin for wound infection, so Azithromycin discontinued) -Monitor O2 and provide supplemental O2 prn. -Incentive spirometer. - Would benefit from Pulmicort daily but after discussion with patient, unlikely to be able to afford it as she is self-pay. Brief History Patient is a 45-year-old female with history of livedoid vasculitis, chronic skin ulcers, and COPD who presents for evaluation of worsening shortness of breath as well as bilateral lower extremity ulcers. She reports having flu-like symptoms with congestion and sore throat for the past 2.5 weeks. She was seen at a local urgent care and went through two rounds of oral antibiotics but reports no improvement of her symptoms. She also uses Albuterol at home which has not helped either. Endorses associated dry cough, wheezing, chills, and fever (up to 102 last night). No chest pain or palpitations. As for her lower extremity wounds, states that redness and swelling started 3 weeks ago after she started her new job. Again, she went to the urgent care and got Clindamycin but symptoms did not improve. Cellulitis and ulcers have gotten worse. Endorses associated crusting and copious amount of purulent discharge from the ulcers. Of note, she has had multiple episodes of similar ulcers in her LEs in the past related to livedoid vasculitis. However has not had an episode since 2016. CBC/BMP: 11/11/16 1144 11/12/16 1026 Significant Findings Laboratory Tests Test 11/11/16 11:44 Mean Corpuscular Volume 74.7 FL (80.0-100.0) Mean Corpuscular Hemoglobin 24.0 PG (27.0-34.0) Red Cell Distribution Width 17.7 % (11.6-17.2) Neutrophils (%) (Auto) 86.9 % (16.0-70.0) Lymphocytes (%) (Auto) 8.8 % (9.0-44.0) Lymphocytes # (Auto) 0.6 TH/MM3 (1.0-4.8) Estimat Glomerular Filtration 83 ML/MIN (>89) Rate Random Glucose 149 MG/DL (74-106) Imaging Last Impressions Chest X-Ray 11/10/16 1753 Signed Impressions: Service Date/Time: Thursday, November 10, 2016 17:55 - CONCLUSION: No acute disease. Alfredo Navarro MD FACR PE at Discharge GENERAL: in NAD, sitting up in bed, no respiratory distress CV: NRRR, S1/S2 normal. No murmurs CHEST/PULM: Mild bilateral expiratory wheezing, improved from previously. Speaking in full sentences. ABD/GI: +BS, soft, nondistended, nontender EXT: Skin exam as below. NEURO: Awake, alert. SKIN: Erythema of bilateral lower extremities, distal 1/3 of R lower extremity and lower 1/2 of left lower extremity. Trace edema at ankles. Left lower extremity with 5cm ulcer, stage 3, along medial aspect of distal leg. Lateral aspect of R lower leg with shallow small ulcerations. + tenderness to palpation. Wound wrapped per wound care nursing recommendations. Hospital Course Admitted for flare of livedoid vasculitis with superimposed infection ( cellulitis). Started empirically on vancomycin. Hospital day 3 wound Cx grew MSSA and Psuedomonas aeruginosa, both alfaro-sensitive. Switched to Levofloxacin per ID recommendation. Patient is to complete 3 week course of Levaquin as ordered below. Regarding livedoid vasculitis, patient has tried several treatments in the past , came to hospital on ASA 325 mg daily. Since she had never tried dipyridimole, we started this at 75 mg Q6H. Further adjustments in treatment regimen to be discussed with new PCP. Patient qualifying for patient assistance program. To establish with Dr. Guthrie. This visit she was also treated for COPD exacerbation. After discharge she will have completed a 4 day course of steroids as well as 4 days of Azithromycin. Levaquin to be continued as above. Added Pulmicort BID as ordered below. F/u with PCP. Pt Condition on Discharge: Stable Discharge Disposition: Discharge Home Discharge Instructions DIET: Follow Instructions for: As Tolerated, No Restrictions Activities you can perform: Regular-No Restrictions Follow up Referrals: PCP Follow-up - 1 Week with Dedra Guthrie MD New Medications: Budesonide Powder Inh (Pulmicort Flexhaler) 180 Mcg/Act Inhp 180 MCG INH Q12HR Asthma Management #1 Ref 0 INHALER Levofloxacin (Levofloxacin) 750 Mg Tab 750 MG PO DAILY Infection #21 Ref 0 TAB Aspirin (Aspirin) 325 Mg Tab 325 MG PO DAILY #30 TAB Dipyridamole (Dipyridamole) 75 Mg Tab 75 MG PO Q6HR #120 TAB Gabapentin (Neurontin) 300 Mg Cap 300 MG PO BID #60 CAP Prednisone (Prednisone) 20 Mg Tab 40 MG PO DAILY #1 TAB Continued Medications: Albuterol 6.7 GM Inh (Proventil Hfa 6.7 GM Inh) 90 Mcg/Act Aer 2 PUFF INH Q4-6H PRN SHORTNESS OF BREATH #1 Ref 0 INHALER (This prescription has been renewed) Albuterol Neb (Albuterol Neb) 2.5 Mg/0.5 Ml Neb 2.5 MG NEB TID NEB Note: The Albuterol Sulfate Inhalation Solution is concentrated and must be diluted. Read complete instructions carefully before using. PRN SHORTNESS OF BREATH #90 Ref 0 NEBULE (This prescription has been renewed) Hydromorphone (Dilaudid) 4 Mg Tab 4 MG PO Q4H PRN Pain Management #60 Ref 0 TAB (This prescription has been renewed) Ibuprofen (Ibuprofen) 800 Mg Tab 800 MG PO Q6HR PRN PAIN #40 Ref 0 TAB Smith Kat MD R1 Nov 13, 2016 6:55 pm
== END 2016-11-13 17:55 | disposition home or self-care (01) | DRG 603 ==
LOC: NEPC 15:26 → NEDA 19:19 → N04A 21:19
PROVIDERS: ADMIT Family Medicine; ATTEND Family Medicine
DX: L03.116 Cellulitis of left lower limb (principal); J44.1 Chronic obstructive pulmonary disease with (acute) exacerbation; L97.329 Non-pressure chronic ulcer of left ankle with unspecified severity; L97.919 Non-pressure chronic ulcer of unspecified part of right lower leg with unspecified severity; I77.6 Arteritis, unspecified; L03.115 Cellulitis of right lower limb; J45.909 Unspecified asthma, uncomplicated; K21.9 Gastro-esophageal reflux disease without esophagitis; F12.90 Cannabis use, unspecified, uncomplicated; F17.200 Nicotine dependence, unspecified, uncomplicated; Z79.82 Long term (current) use of aspirin; Z79.899 Other long term (current) drug therapy
CPT/HCPCS: 71010; 76937; 80048; 80053; 82565; 83605; 83735; 84520; 85025; 85610; 85652; 85730; 86038; 86140; 86200; 86225; 86403; 86430; 87040; 87070; 87077; 87147; 87186; 87205; 94150; 94640; 94664; 94667; 94668; 96372; J1100; J1170; J1644; J1956; J3370; J7050; J7512; J7613

== ENCOUNTER 2017-04-14 00:13 | Observation (INO) | payer SELFPAY ==
[~2017-04-14] VITALS: Ht 170.2 cm; Wt 80.0 kg
[2017-04-14] VITALS (13 sets, daily range): BP systolic 126–159; BP diastolic 66–103; PULSE 69–102; RESP 18–26; TEMP 98.5–98.7; O2SAT 88–99
[~2017-04-14 00:13] MED LIST changes: +ALBU.5I NEB; -ALBU0.086 NEB; +ALBU6.7H INH; -ALBU8I INH; +ASPI325T PO; -CLIN1CAP5 PO; -DILA4TAB10 PO; +DILA4TAB2 PO; +DIPY75TA PO; -DUONI INH; +IBUP800T23 PO; +LEVO750T33 PO; -NAPR500 PO; +NEUR300C PO; -PENI500T PO; +PRED20 PO; +PULM180I INH; -SYMB160A INH; -VENTAER INH
[2017-04-14] MEDS ORDERED: RESP: ALBUTEROL 2.5 MG/IPRATROPIUM 0.5 MG NEB (PRN) ONE ×3 (00:32→00:33)
[2017-04-14] MEDS: RESP: ALBUTEROL 2.5 MG/IPRATROPIUM 0.5 MG NEB (SCH) INH ×3 (00:44→02:02)
[2017-04-14] MEDS ORDERED: methylPREDNISolone SOD SUCC 125 MG/2 ML VIAL IVP ONE (00:45)
[2017-04-14] MEDS ORDERED: SODIUM CHLORIDE 0.9% FLUSH 10 ML FLUSH IVF PRN (00:45)
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
--- NOTE | 2017-04-14 00:54 | RADRPT ---
EXAM DATE/TIME: 04/14/2017 00:52 [facility] COMPARISON: No previous studies available for comparison. INDICATIONS : Short of breath and chest pain. MEDICAL HISTORY : Chronic obstructive pulmonary disease. SURGICAL HISTORY : None. ENCOUNTER: Initial ACUITY: 3 days PAIN SCORE: 7/10 LOCATION: Left chest FINDINGS: A single view of the chest demonstrates the lungs to be symmetrically aerated without evidence of mas s, infiltrate or effusion. The cardiomediastinal contours are unremarkable. Osseous structures are intact. CONCLUSION: No acute disease. Melchor Caceres MD on April 14, 2017 at 0:52 Board Certified Radiologist. This report was verified electronically.
[2017-04-14] MEDS ORDERED: SYMB160A INH (01:16)
[2017-04-14 01:37] LABS: AUTOMATED NEUTROPHIL # 6.3 TH/MM3 (1.8-7.7); BASOPHIL % 0.4 % (0.0-2.0); EOSINOPHIL # 0.3 TH/MM3 (0-0.4); EOSINOPHIL % 3.5 % (0.0-4.0); HEMATOCRIT 38.4 % (35.0-46.0); HEMO FLAGS DIFF FINAL; LYMPH % 22.1 % (9.0-44.0); MEAN CELL VOLUME 80.9 FL (80.0-100.0); MEAN CORPUSCULAR HEMOGLOBIN 27.4 PG (27.0-34.0); MEAN CORPUSCULAR HGB CONC 33.8 % (32.0-36.0); MONO % 5.2 % (0.0-8.0); NEUT % 68.8 % (16.0-70.0); PLATELET COUNT 196 TH/MM3 (150-450); RED BLOOD COUNT 4.75 MIL/MM3 (4.00-5.30); RED CELL DISTRIBUTION WIDTH 16.8 % (11.6-17.2); WHITE BLOOD COUNT 9.2 TH/MM3 (4.0-11.0)
[2017-04-14] MEDS ORDERED: OSELTAMIVIR PHOSPHATE 75 MG CAP PO ONE (01:45)
[2017-04-14 01:53] LABS: BICARBONATE 28.7 MEQ/L (21.0-32.0); POTASSIUM 3.5 MEQ/L (3.5-5.1)
[2017-04-14] MEDS ORDERED: AZITHROMYCIN INJ 500 MG in SODIUM CHLOR 0.9% 250 ML INJ 250 ML IV ONE (02:45)
[2017-04-14] MEDS ORDERED: HYDROmorphone HCL 4 MG TAB PO SCH (03:45)
[2017-04-14] MEDS ORDERED: RESP: ALBUTEROL 2.5 MG/IPRATROPIUM 0.5 MG NEB (SCH) NEB (04:00)
[2017-04-14] MEDS ORDERED: SODIUM CHLORIDE 0.9% FLUSH 10 ML FLUSH IV FLUSH PRN (05:00)
[2017-04-14] MEDS ORDERED: NALOXONE HCL 0.4 MG/ML AMP IV PRN (05:00)
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
[2017-04-14] MEDS: methylPREDNISolone SOD SUCC 40 MG/1 ML VIAL IV PUSH SCH ×3 (06:33→17:48)
[2017-04-14] MEDS: DIPYRIDAMOLE 75 MG PO SCH ×3 (06:33→18:00)
[2017-04-14] MEDS: GABAPENTIN 300 MG CAP PO SCH ×2 (08:34→21:55)
[2017-04-14] MEDS: ENOXAPARIN SODIUM 40 MG/0.4 ML SYRINGE SQ SCH (08:34)
[2017-04-14] MEDS: HYDROmorphone HCL 4 MG TAB PO PRN ×4 (08:34→21:58)
[2017-04-14] MEDS: ASPIRIN 325 MG TAB PO SCH (08:34)
[2017-04-14] MEDS: BUDESONIDE-FORMOTEROL 160/4.5 MCG INHALER INH SCH ×2 (08:35→21:55)
[2017-04-14] MEDS: PANTOPRAZOLE SOD 40 MG DELAYED RELEASE TAB PO SCH (08:38)
[2017-04-14] MEDS: SODIUM CHLORIDE 0.9% FLUSH 10 ML FLUSH IV FLUSH SCH ×2 (09:06→21:00)
[2017-04-14] MEDS: RESP: ALBUTEROL 2.5 MG/IPRATROPIUM 0.5 MG NEB (PRN) NEB ×4 (09:06→23:42)
[2017-04-14] MEDS: OSELTAMIVIR PHOSPHATE 75 MG CAP PO SCH (18:42)
[2017-04-15] MEDS: methylPREDNISolone SOD SUCC 40 MG/1 ML VIAL IV PUSH SCH ×3 (00:06→11:48)
[2017-04-15] MEDS: OSELTAMIVIR PHOSPHATE 75 MG CAP PO SCH ×2 (00:07→10:21)
[2017-04-15 00:47] VITALS: BP 138/70; PULSE 92; RESP 19; TEMP 98.8; O2SAT 94
[2017-04-15] MEDS: HYDROmorphone HCL 4 MG TAB PO PRN ×3 (02:12→10:22)
[2017-04-15] MEDS: RESP: ALBUTEROL 2.5 MG/IPRATROPIUM 0.5 MG NEB (PRN) NEB ×2 (03:27→07:48)
[2017-04-15 03:55] VITALS: BP 128/66; PULSE 84; RESP 18; TEMP 97.7; O2SAT 98
[2017-04-15] MEDS: DIPYRIDAMOLE 75 MG PO SCH ×3 (06:00→11:49)
[2017-04-15 07:49] VITALS: O2SAT 99
[2017-04-15 08:15] VITALS: BP 135/68; PULSE 90; RESP 20; TEMP 98.9; O2SAT 96
[2017-04-15] MEDS: GABAPENTIN 300 MG CAP PO SCH (10:21)
[2017-04-15] MEDS: ASPIRIN 325 MG TAB PO SCH (10:21)
[2017-04-15] MEDS: ENOXAPARIN SODIUM 40 MG/0.4 ML SYRINGE SQ SCH (10:21)
[2017-04-15] MEDS: PANTOPRAZOLE SOD 40 MG DELAYED RELEASE TAB PO SCH (10:22)
[2017-04-15] MEDS: SODIUM CHLORIDE 0.9% FLUSH 10 ML FLUSH IV FLUSH SCH (10:22)
[2017-04-15] MEDS: BUDESONIDE-FORMOTEROL 160/4.5 MCG INHALER INH SCH (10:22)
[2017-04-15] MEDS ORDERED: ALBU6.7H INH (11:03)
[2017-04-15] MEDS ORDERED: DILA4TAB2 PO (11:03)
[2017-04-15] MEDS ORDERED: IPRASOL NEB (11:03)
[2017-04-15] MEDS ORDERED: AZIT250T3 PO (11:03)
[2017-04-15] MEDS ORDERED: OSEL75 PO (11:03)
[2017-04-15] MEDS ORDERED: SYMB160A INH (11:03)
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
[2017-04-15] MEDS ORDERED: PRED20 PO (11:11)
[2017-04-15 11:31] VITALS: RESP 19
[2017-04-15] MEDS ORDERED: AZITHROMYCIN 250 MG TAB PO SCH (12:00)
[2017-04-16] MEDS ORDERED: AZITHROMYCIN 250 MG TAB PO SCH (03:00)
== END 2017-04-15 13:26 | disposition home or self-care (01) ==
LOC: NEPC 00:13 → NEDA 04:57 → INTOOBSV 04:57 → NEDH 10:42 → NEPFCDU 14:22
PROVIDERS: ADMIT Hospitalist; ATTEND Hospitalist
DX: J44.1 Chronic obstructive pulmonary disease with (acute) exacerbation (principal); J10.1 Influenza due to other identified influenza virus with other respiratory manifestations; R09.02 Hypoxemia; K21.9 Gastro-esophageal reflux disease without esophagitis; G89.29 Other chronic pain; F11.20 Opioid dependence, uncomplicated; Z87.891 Personal history of nicotine dependence; Z79.82 Long term (current) use of aspirin; Z79.51 Long term (current) use of inhaled steroids
CPT/HCPCS: 71010; 80048; 85025; 87040; 87804; 94640; 94664; 96365; 96366; 96375; 97161; 99284; G8987; G8988; J0456; J1650; J2920; J2930; J7050

== ENCOUNTER 2017-08-13 02:58 | Emergency (ER) | payer SELFPAY ==
[~2017-08-13] VITALS: Ht 167.6 cm; Wt 94.1 kg
[~2017-08-13 02:58] MED LIST changes: +ASPI-183 PO; -ASPI325T PO; +DILA4TAB10 PO; -DILA4TAB2 PO; +IBUP1TAB7 PO; -IBUP800T23 PO; +IPRASOL NEB; -LEVO750T33 PO; +NYST1000 SWISH-SWAL; -PULM180I INH; +SYMB160A INH
[2017-08-13 03:03] VITALS: BP 113/57; PULSE 105; RESP 18; TEMP 98.4; O2SAT 95
--- NOTE | 2017-08-13 04:07 | PD ---
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 Patient is a right-sided Bartholin cyst that started about a week ago and has progressed rapidly over the last 3 days and now her entire mons pubis seems to be infected and purulent indurated tender. Patient when told that this would be something significant that needs gynecological intervention as opposed to an ER simple Bartholin cyst I&D she is upset and was like to go directly herself to [facility] as all of her chart and treatment has been there. This is not a simple Bartholin cyst but this has spread to the entire labia majora as well as the mons pubis [facility] Past Medical History Anemia: Yes Arthritis: Yes Asthma: Yes Autoimmune Disease: Yes (Livedoid vasculitis) Blood Disorders: No Anxiety: Yes Depression: Yes Heart Rhythm Problems: No Cancer: No Cardiac Catheterization: No Cardiovascular Problems: Yes High Cholesterol: No Chemotherapy: No Chest Pain: Yes Congestive Heart Failure: No COPD: Yes Cerebrovascular Accident: No Diabetes: No Diminished Hearing: No Endocrine: No GERD: Yes Genitourinary: Yes Hiatal Hernia: No Hypertension: No Immune Disorder: Yes Implanted Vascular Access Dvce: Yes Kidney Stones: No Musculoskeletal: Yes (healed ulcers, vascular disease) Neurologic: Yes (neuropathy) Psychiatric: Yes Reproductive: No Respiratory: Yes (COPD) Integumentary: Yes (LIVEDO VASCULITIS) Immunizations Current: Yes Migraines: No Pneumonia: Yes Radiation Therapy: No Renal Failure: No Seizures: No Thyroid Disease: No Ulcer: Yes PNEUMOCCOCAL Vaccine (Year): 2 ?: Not Menopausal: Yes : 1 Para: 1 Miscarriage: 0 : 0 Past Surgical History Abdominal Surgery: No Appendectomy: No Body Medical Devices: plates and screws to left elbow Cardiac Surgery: No Section: Yes (1997) Cholecystectomy: No Coronary Artery Bypass Graft: No Ear Surgery: No Endocrine Surgery: No Eye Surgery: No Genitourinary Surgery: No Gynecologic Surgery: Yes ( ) Joint Replacement: No Oral Surgery: No Pacemaker: No Thoracic Surgery: No Tonsillectomy: Yes (T/A) Other Surgery: Yes (CYST REMOVED FROM LEFT BREAST) Family History Family Myocardial Infarction: Yes (MOM AND DAD) Social History Alcohol Use: Yes (RARELY) Tobacco Use: No (QUIT 08/04 PPD) Substance Use: No Allergies-Medications (Allergen,Severity, Reaction): Coded Allergies: No Known Allergies (Verified Adverse Reaction, Unknown, 08/13/17) Reported Meds & Prescriptions Reported Meds & Active Scripts Active Clindamycin (Clindamycin HCl) 300 Mg Cap 300 Mg PO TID Duoneb (Ipratropium-Albuterol Neb) 0.5-2.5 Mg/3 Ml Neb 1 Ampule NEB Q8HR PRN q8hrs schedules x 3-4 days then as needed Symbicort Inh (Budesonide/Formoterol Fumarate) 160-4.5 Mcg/Act Aero 2 Puff INH Q12HR Proventil Hfa 6.7 GM Inh (Albuterol Sulfate) 90 Mcg/Act Aer 2 Puff INH Q4-6H PRN Dilaudid (Hydromorphone HCl) 4 Mg Tab 4 Mg PO Q4-6H PRN Albuterol Neb (Albuterol Sulfate) 2.5 Mg/0.5 Ml Neb 2.5 Mg NEB TID NEB PRN Note: The Albuterol Sulfate Inhalation Solution is concentrated and must be diluted. Read complete instructions carefully before using. Aspirin 325 Mg Tab 325 Mg PO DAILY Reported Ibuprofen 800 Mg Tab 800 Mg PO Q6HR PRN Review of Systems Except as stated in HPI: all other systems reviewed are Neg Genitourinary: Positive: Pelvic Pain, Other (severely infected Bartholin cyst labia majora mons pubis) Physical Exam Narrative GENERAL: Patient appears to be in pain when she ambulates due to the swelling in her groin SKIN: Warm and dry. HEAD: Atraumatic. Normocephalic. EYES: Pupils equal and round. No scleral icterus. No injection or drainage. ENT: No nasal bleeding or discharge. Mucous membranes pink and moist. NECK: Trachea midline. No JVD. CARDIOVASCULAR: Regular rate and rhythm. RESPIRATORY: No accessory muscle use. Clear to auscultation. Breath sounds equal bilaterally. GENITAL EXAM Large swollen genital area right Bartholin gland is swollen with involvement of entire right labia majora up to the mons pubis fluctuant tender , no obvious focus to large rightside infection cellulitis GASTROINTESTINAL: Abdomen soft, non-tender, nondistended. Hepatic and splenic margins not palpable. MUSCULOSKELETAL: Extremities without clubbing, cyanosis, or edema. No obvious deformities. NEUROLOGICAL: Awake and alert. No obvious cranial nerve deficits. Motor grossly within normal limits. Five out of 5 muscle strength in the arms and legs. Normal speech. PSYCHIATRIC: Appropriate mood and affect; insight and judgment normal. Data Data Last Documented VS Vital Signs Date Time Temp Pulse Resp B/P (MAP) Pulse Ox O2 Delivery O2 Flow Rate FiO2 08/13/17 04:22 08/13/17 03:03 98.4 105 18 95 Orders Orders Clindamycin (Cleocin) (08/13/17 04:15) Ed Discharge Order (08/13/17 04:12) [facility] Medical Decision Making Medical Screen Exam Complete: Yes Emergency Medical Condition: Yes Differential Diagnosis GENERAL: Patient is limping due to the pain in her groin SKIN: Warm and dry. HEAD: Atraumatic. Normocephalic. EYES: Pupils equal and round. No scleral icterus. No injection or drainage. ENT: No nasal bleeding or discharge. Mucous membranes pink and moist. NECK: Trachea midline. No JVD. CARDIOVASCULAR: Regular rate and rhythm. RESPIRATORY: No accessory muscle use. Clear to auscultation. Breath sounds equal bilaterally. : Patient's right labia majora is to definitely swollen it swells all the way up to the mons pubis which is indurated and tender and fluctuant GASTROINTESTINAL: Abdomen soft, non-tender, nondistended. Hepatic and splenic margins not palpable. MUSCULOSKELETAL: Extremities without clubbing, cyanosis, or edema. No obvious deformities. NEUROLOGICAL: Awake and alert. No obvious cranial nerve deficits. Motor grossly within normal limits. Five out of 5 muscle strength in the arms and legs. Normal speech. PSYCHIATRIC: Appropriate mood and affect; insight and judgment normal. Narrative Course After initial exam I tell the patient this isn't simple infected bartholin cyst but it is now involving labia that has spread from the Bartholin gland all the way up to the mons pubis ..this is a significant infection and gynecological intervention is needed more than ER I and D ...she refuses to be transferred or admitted and wants" to drive herself directly to [facility] right after she goes home to take care of a few things" because she did not expect to be admitted. I do not make her sign AGAINST MEDICAL ADVICE I give her clindamycin 300 mg by mouth the discharge with a prescription for clindamycin but insist that she must be in the ER within 3 hours .. she agrees and her partner says she will take her make sure that she arrives T MAIN ... PT IS discharged DX genital infection labial infection Diagnosis Primary Impression: Labial infection Additional Impression: Infected cyst of Bartholin's gland duct Patient Instructions: Abscess (ED), General Instructions Scripts Clindamycin (Clindamycin) 300 Mg Cap 300 MG PO TID for Infection, #30 CAP 0 Refills Prov: Adam Hicks MD 08/13/17 Disposition: 01 DISCHARGE HOME Condition: Stable Adam Hicks MD Aug 13, 2017 04:07
[2017-08-13] MEDS ORDERED: CLIN300C5 PO (04:09)
[2017-08-13] MEDS ORDERED: CLINDAMYCIN 150 MG CAP PO ONE (04:15)
== END 2017-08-13 04:24 | disposition home or self-care (01) ==
LOC: PHED 02:58
DX: N75.0 Cyst of Bartholin's gland (principal)
CPT/HCPCS: 99283

== ENCOUNTER 2017-08-13 11:54 | Inpatient (IN) | payer SELFPAY ==
[2017-08-13] VITALS (7 sets, daily range): BP systolic 120–134; BP diastolic 56–71; PULSE 87–101; RESP 17–20; TEMP 97.8–98.8; O2SAT 92–99
[~2017-08-13] VITALS: Ht 167.6 cm; Wt 90.4 kg
[~2017-08-13 11:54] MED LIST changes: +CLIN300C5 PO
[2017-08-13] MEDS ORDERED: SODIUM CHLOR 0.9% 1000 ML INJ 1,000 ML IV SCH (12:12)
[2017-08-13] MEDS ORDERED: LEVOFLOXACIN 500 MG PREMIX INJ 100 ML IV ONE (12:15)
[2017-08-13] MEDS ORDERED: metroNIDAZOLE 500 MG INJ 100 ML IV ONE (12:15)
[2017-08-13] MEDS ORDERED: SODIUM CHLORIDE 0.9% FLUSH 10 ML FLUSH IV FLUSH PRN ×2 (12:15→14:15)
--- NOTE | 2017-08-13 12:32 | PD ---
HPI Chief Complaint: Skin Problem Time Seen by Provider: 12:06 Travel History International Travel<30 days: No Contact w/Intl Traveler<30days: No Traveled to known affect area: No History of Present Illness HPI 47-year-old female previously seen at [place] yesterday with right -sided labial/mons pubis cellulitis with abscess, with history of COPD and chronic vasculitis on chronic prednisone, returns to the emergency department after being seen yesterday and discharged home with clindamycin by mouth. Patient was to drive directly here last evening but did not come in until this morning. Patient describes the pain is getting worse 10 out of 10, is drainage. She has had fevers off and on for the past 4 days now. Patient states it started 4 days ago but has gotten progressively worse. She's been taking ibuprofen for the pain and fever. Patient states history of COPD requiring chronic prednisone which she feels makes her more immunosuppressed. She also has chronic microvascular disease which makes it very difficult to stick with IVs. Pain is currently 1010. He has no known drug allergies. PFSH Past Medical History Anemia: Yes Arthritis: Yes Asthma: Yes Autoimmune Disease: Yes (Livedoid vasculitis) Blood Disorders: No Anxiety: Yes Depression: Yes Heart Rhythm Problems: No Cancer: No Cardiac Catheterization: No Cardiovascular Problems: Yes High Cholesterol: No Chemotherapy: No Chest Pain: Yes Congestive Heart Failure: No COPD: Yes Cerebrovascular Accident: No Diabetes: No Diminished Hearing: No Endocrine: No GERD: Yes Genitourinary: Yes Hiatal Hernia: No Hypertension: No Immune Disorder: Yes Implanted Vascular Access Dvce: Yes Kidney Stones: No Musculoskeletal: Yes (healed ulcers, vascular disease) Neurologic: Yes (neuropathy) Psychiatric: Yes Reproductive: No Respiratory: Yes (COPD) Integumentary: Yes (LIVEDO VASCULITIS) Immunizations Current: Yes Migraines: No Pneumonia: Yes Radiation Therapy: No Renal Failure: No Seizures: No Thyroid Disease: No Ulcer: Yes PNEUMOCCOCAL Vaccine (Year): 2 ?: Not Menopausal: Yes : 1 Para: 1 Miscarriage: 0 : 0 Past Surgical History Abdominal Surgery: No Appendectomy: No Body Medical Devices: plates and screws to left elbow Cardiac Surgery: No Section: Yes (1997) Cholecystectomy: No Coronary Artery Bypass Graft: No Ear Surgery: No Endocrine Surgery: No Eye Surgery: No Genitourinary Surgery: No Gynecologic Surgery: Yes ( ) Joint Replacement: No Oral Surgery: No Pacemaker: No Thoracic Surgery: No Tonsillectomy: Yes (T/A) Other Surgery: Yes (CYST REMOVED FROM LEFT BREAST) Family History Family Myocardial Infarction: Yes (MOM AND DAD) Social History Alcohol Use: Yes (RARELY) Tobacco Use: No (QUIT 08/04 PPD) Substance Use: No Allergies-Medications (Allergen,Severity, Reaction): Coded Allergies: No Known Allergies (Verified Adverse Reaction, Unknown, 08/13/17) Reported Meds & Prescriptions Reported Meds & Active Scripts Active Clindamycin (Clindamycin HCl) 300 Mg Cap 300 Mg PO TID Duoneb (Ipratropium-Albuterol Neb) 0.5-2.5 Mg/3 Ml Neb 1 Ampule NEB Q8HR PRN q8hrs schedules x 3-4 days then as needed Symbicort Inh (Budesonide/Formoterol Fumarate) 160-4.5 Mcg/Act Aero 2 Puff INH Q12HR Proventil Hfa 6.7 GM Inh (Albuterol Sulfate) 90 Mcg/Act Aer 2 Puff INH Q4-6H PRN Dilaudid (Hydromorphone HCl) 4 Mg Tab 4 Mg PO Q4-6H PRN Albuterol Neb (Albuterol Sulfate) 2.5 Mg/0.5 Ml Neb 2.5 Mg NEB TID NEB PRN Note: The Albuterol Sulfate Inhalation Solution is concentrated and must be diluted. Read complete instructions carefully before using. Aspirin 325 Mg Tab 325 Mg PO DAILY Reported Ibuprofen 800 Mg Tab 800 Mg PO Q6HR PRN Review of Systems Except as stated in HPI: all other systems reviewed are Neg General / Constitutional: Positive: Fever, Chills Eyes: No: Visual changes HENT: No: Headaches Cardiovascular: No: Chest Pain or Discomfort Respiratory: No: Shortness of Breath Gastrointestinal: No: Abdominal Pain Genitourinary: No: Dysuria Musculoskeletal: No: Pain Skin: Positive Lesions, No Rash Neurologic: No: Weakness Psychiatric: No: Depression Endocrine: No: Polydipsia Hematologic/Lymphatic: No: Easy Bruising Physical Exam Narrative GENERAL: Patient appears in moderate distress. SKIN: Warm and dry. Normal color. Normal turgor. HEAD: Atraumatic. Normocephalic. EYES: Pupils equal and round. No scleral icterus. No injection or drainage. ENT: No nasal bleeding or discharge. Mucous membranes pink and moist. NECK: Trachea midline. No JVD. CARDIOVASCULAR: Regular rate and rhythm. RESPIRATORY: No accessory muscle use. Clear to auscultation. Breath sounds equal bilaterally. GASTROINTESTINAL: Abdomen soft, non-tender, nondistended. Hepatic and splenic margins not palpable. MUSCULOSKELETAL: Extremities without clubbing, cyanosis, or edema. No obvious deformities. NEUROLOGICAL: Awake and alert. No obvious cranial nerve deficits. Motor grossly within normal limits. Five out of 5 muscle strength in the arms and legs. Normal speech. PSYCHIATRIC: Appropriate mood and affect; insight and judgment normal. Data Data Last Documented VS Vital Signs Date Time Temp Pulse Resp B/P (MAP) Pulse Ox O2 Delivery O2 Flow Rate FiO2 08/13/17 11:56 98.8 101 20 120/67 (84) 94 Room Air Orders Orders Complete Blood Count With Diff (08/13/17 12:12) Comprehensive Metabolic Panel (08/13/17 12:12) Lactic Acid (08/13/17 12:12) Prothrombin Time / Inr (Pt) (08/13/17 12:12) Act Partial Throm Time (Ptt) (08/13/17 12:12) Urinalysis - C+S If Indicated (08/13/17 12:12) Ct Abd/Pel W Iv Contrast(Rout) (08/13/17 12:12) Iv Access Insert/Monitor (08/13/17 12:12) Ecg Monitoring (08/13/17 12:12) Oximetry (08/13/17 12:12) Metronidazole 500 Mg Inj (Flagyl 500 Mg (08/13/17 12:15) Sodium Chlor 0.9% 1000 Ml Inj (Ns 1000 M (08/13/17 12:12) Levofloxacin 500 Mg Premix Inj (Levaquin (08/13/17 12:15) Sodium Chloride 0.9% Flush (Ns Flush) (08/13/17 12:15) Electrocardiogram (08/13/17 12:12) Vascular Access Team Consult/P PRN (08/13/17 12:36) Vascular Poc Ultrasound (08/13/17 ) Ed Urine Pregnancytest Poc (08/13/17 12:52) Admit Order (Ed Use Only) (08/13/17 13:36) Labs Laboratory Tests Test 1/11/18 13:11 Urine Color YELLOW Urine Turbidity CLEAR Urine pH 6.0 Urine Specific Energy 1.022 Urine Protein 30 mg/dL Urine Glucose (UA) NEG mg/dL Urine Ketones NEG mg/dL Urine Occult Blood NEG Urine Nitrite NEG Urine Bilirubin NEG Urine Urobilinogen 2.0 MG/DL Urine Leukocyte Esterase NEG Urine RBC LESS THAN 1 /hpf Urine WBC 1 /hpf Urine Squamous Epithelial Cells 1 /hpf Urine Bacteria RARE /hpf Urine Mucus FEW /lpf Microscopic Urinalysis Comment CULT NOT INDICATED MDM Medical Decision Making Medical Screen Exam Complete: Yes Emergency Medical Condition: Yes Medical Record Reviewed: Yes Differential Diagnosis Cellulitis. Bartholin's gland cyst. Abscess. Sepsis. Narrative Course Patient is obviously in distress, but medically stable at time of exam. IV access team is called for IV after 2 attempted IV sticks here. Labs ordered including CBC, CMP, lactic acid, blood cultures 2. EKG shows normal sinus rhythm. IV Levaquin 500 mg as well as 500 mg metronidazole IV is ordered. CT of the abdomen and pelvis with contrast is ordered after discussing the patient with Dr. QUIROZ, the CRAFT WORKER on-call. He requested I call the OB hospitalist. Patient was discussed with Dr. White who came and saw the patient in the room. Dr. White felt the patient should be admitted with consult with Dr. Quiroz. Diagnosis Primary Impression: Abscess of groin, right Admitting Information Admitting Physician Requests: Admit Condition: Stable Cristiano Lafleur Aug 13, 2017 12:32
[2017-08-13 13:59] LABS: BACTERIA, URINE RARE /hpf; BILIRUBIN, URINE NEG (NEG); BLOOD, URINE NEG (NEG); GLUCOSE,URINE NEG (NEG); KETONE, URINE NEG (NEG); MUCUS URINE FEW /lpf (OCC); NITRITE,URINE NEG (NEG); SQUAMOUS EPITHELIAL CELL URINE 1 /hpf (0-5); URINE COLOR YELLOW (YELLW/STRAW); URINE LEUKOCYTE ESTERASE NEG (NEG)
--- NOTE | 2017-08-13 14:03 | HHI.HP ---
HPI Chief Complaint Right vulvar abscess Date Seen: Aug 13, 2017 Time Seen: 13:50 Travel History International Travel<30 Days: No Contact w/Intl Traveler<30Days: No Known Affected Area: No History of Present Illness HPI Patient is a 47-year-old white female previous 1 now with increasing pain and swelling in the vulvar area and the last 4 days, just in the last 24-48 hours so swollen greatly on the right side to read tender and she 's been running fevers at home. She was seen in [place] ER was put on Cleocin by mouth but is not improved. Patient has a history of autoimmune vasculitis and the bed COPD she takes numerous steroids for both as well as albuterol inhaler another respiratory medications. Patient's had with the vasculitis several skin abscesses and infections and she's noted those over the years she says she describes infection prone and has experiencing cleaning and wound care for these types of skin abscesses Para: 1 : 1 History Past Medical History Narrative Medical Autoimmune vasculitis long-term and takes multiple steroids for this and for bad COPD. Obstetric History Obstetric History 1 1 20 years ago Past Surgical History Narrative Surgical 1 She had some orthopedic surgery on elbow Social History Alcohol Use: Yes Tobacco Use: No Substance Abuse: No Allergies-Medications (Allergen,Severity, Reaction): Coded Allergies: No Known Allergies (Verified Adverse Reaction, Unknown, 08/13/17) Home Meds Active Scripts Clindamycin (Clindamycin) 300 Mg Cap, 300 MG PO TID for Infection, #30 CAP 0 Refills Prov:Adam Hicks MD 08/13/17 Ipratropium-Albuterol Neb (Duoneb) 0.5-2.5 Mg/3 Ml Neb, 1 AMPULE NEB Q8HR Y for wheezing, #1 BOX q8hrs schedules x 3-4 days then as needed Prov:Evy Arroyo MD 04/15/17 Budesonide-Formoterol Inh (Symbicort Inh) 160-4.5 Mcg/Act Aero, 2 PUFF INH Q12HR , #1 INHALER 0 Refills Prov:Evy Arroyo MD 04/15/17 Albuterol 6.7 GM Inh (Proventil Hfa 6.7 GM Inh) 90 Mcg/Act Aer, 2 PUFF INH Q4- 6H Y for SHORTNESS OF BREATH, #1 INHALER 0 Refills Prov:Evy Arroyo MD 04/15/17 Hydromorphone (Dilaudid) 4 Mg Tab, 4 MG PO Q4-6H Y for Pain Management, #12 TAB 0 Refills Prov:Evy Arroyo MD 04/15/17 Albuterol Neb (Albuterol Neb) 2.5 Mg/0.5 Ml Neb, 2.5 MG NEB TID NEB Y for SHORTNESS OF BREATH, #90 NEBULE 0 Refills Note: The Albuterol Sulfate Inhalation Solution is concentrated and must be diluted. Read complete instructions carefully before using. Prov:Smith Kat MD 11/13/16 Aspirin (Aspirin) 325 Mg Tab, 325 MG PO DAILY, #30 TAB Prov:Smith Kat MD 11/13/16 Reported Medications Ibuprofen (Ibuprofen) 800 Mg Tab, 800 MG PO Q6HR Y for PAIN, #40 TAB 0 Refills 11/10/16 Discontinued Scripts Prednisone (Prednisone) 20 Mg Tab, 20 MG PO BID for 5 Days, #10 TAB 0 Refills Prov:Lynda Sun MD 07/07/17 Nystatin Liq (Nystatin Liq) 100,000 unit/ml Susp, 5 ML SWISH-SWAL QID for Infection for 14 Days, ML 0 Refills Swish and swallow over 20 minutes Prov:Adelia William 06/27/17 Gabapentin (Neurontin) 300 Mg Cap, 300 MG PO BID, #60 CAP Prov:Smith Kat MD 11/13/16 Dipyridamole (Dipyridamole) 75 Mg Tab, 75 MG PO Q6HR, #120 TAB Prov:Smith Kat MD 11/13/16 Review of Systems General / Constitutional: No: Fever, Weight Gain, Chills, Other Eyes: No: Diploplia, Blurred Vision, Visual changes, Pain, Photophobia HENT: No: Headaches, Vertigo, Lightheadedness Cardiovascular: No: Irregular Rhythm, Chest Pain or Discomfort, Palpitations, Tachycardia, Syncope, Varicosities, Edema, Cyanosis Respiratory: Cough, No: Short of Breath, Other Gastrointestinal: No: Nausea, Vomiting, Diarrhea Genitourinary: No: Decreased Urinary Output, Oliguria Musculoskeletal: No: Limited ROM, Weakness, Cramping, Edema, Pain Skin: No Rash, No Itching, No Dryness, No Lumps, No Change in Pigmentation, No Change in Nails, No Alopecia, No Lesions Neurologic: No: Weakness, Dizziness, Syncope, Focal Abnormalities, Coordination Problem, Headache, Slurred Speech, Seizures Psychiatric: No: Depression, Suicidal Ideations, Homicidal Ideation Endocrine: No: Heat Intolerance, Cold Intolerance, Polydipsia, Polyuria, Other Physical Exam Vital Signs Date Time Temp Pulse Resp B/P (MAP) Pulse Ox O2 Delivery O2 Flow Rate FiO2 08/13/17 11:56 98.8 101 20 120/67 (84) 94 Room Air Narrative GENERAL: Well-nourished, well-developed patient. SKIN: Warm and dry she has multiple tattoos and she has several skin ulcers on her legs related to the vasculitis. HEAD: Normocephalic and atraumatic. EYES: No scleral icterus. No injection or drainage. ENT: No nasal drainage noted. Mucous membranes pink. Airway patent. NECK: Supple, trachea midline. No JVD. CARDIOVASCULAR: Regular rate and rhythm without murmurs, gallops, or rubs. RESPIRATORY: Breath sounds equal bilaterally positive rhonchi no rales. No accessory muscle use. BREASTS: Bilateral exam showed no masses , no retractions, no nipple discharge. ABDOMEN/GI: Abdomen soft, non-tender, bowel sounds present, no rebound, no guarding GENITOURINARY: External Genitalia: Right labia of is enlarged swollen erythematous extremely tender and fluctuant with the redness and the most inflammation posteriorly and by the symphysis areas just pink and red and slightly tender but is more mid and posterior, the patient noted that it started draining some the couple of days ago draining some pus in the posterior spot but insignificant better and only got worse and you can see this a defect in the skin were did open up The LABIA is within normal limits the vaginal introitus and the lower third of vagina are within normal limits I cannot examine further that due to the pain patient's experiencing EXTREMITIES: No cyanosis or edema. Multiple small ulcers in the skin from the vasculitis condition BACK: Nontender without obvious deformity. No CVA tenderness. NEUROLOGICAL: Awake and alert. Motor and sensory grossly within normal limits. Five out of 5 muscle strength in all muscle groups. Normal speech. Caprini VTE Risk Assessment Caprini VTE Risk Assessment: Mod/High Risk (score >= 2) Caprini Risk Assessment Model Point Value = 1 Point Value = 2 Point Value = 3 Point Value = 5 Age 41-60 Minor surgery BMI > 25 kg/m2 Swollen legs Varicose veins or History of unexplained or recurrent spontaneous Oral contraceptives or hormone replacement Sepsis (< 1 month) Serious lung disease, including pneumonia (< 1 month) Abnormal pulmonary function Acute myocardial infarction Congestive heart failure (< 1 month) History of inflammatory bowel disease Medical patient at bed rest Age 61-74 Arthroscopic surgery Major open surgery (> 45 min) Laparoscopic surgery (> 45 min) Malignancy Confined to bed (> 72 hours) Immobilizing plaster cast Central venous access Age >= 75 History of VTE Family history of VTE Factor V Leiden Prothrombin [id number] Lupus anticoagulant Anticardiolipin antibodies Elevated serum homocysteine Heparin-induced thrombocytopenia Other congenital or acquired thrombophilia Stroke (< 1 month) Elective arthroplasty Hip, pelvis, or leg fracture Acute spinal cord injury (< 1 month) Prophylaxis Regimen Total Risk Factor Score Risk Level Prophylaxis Regimen 0-1 Low Early ambulation 2 Moderate Order ONE of the following: *Sequential Compression Device (SCD) *Heparin 5000 units SQ BID 3-4 Higher Order ONE of the following medications: *Heparin 5000 units SQ TID *Enoxaparin/Lovenox 40 mg SQ daily (WT < 150 kg, CrCl > 30 mL/min) *Enoxaparin/Lovenox 30 mg SQ daily (WT < 150 kg, CrCl > 10-29 mL/min) *Enoxaparin/Lovenox 30 mg SQ BID (WT < 150 kg, CrCl > 30 mL/min) AND/OR *Sequential Compression Device (SCD) 5 or more Highest Order ONE of the following medications: *Heparin 5000 units SQ TID (Preferred with Epidurals) *Enoxaparin/Lovenox 40 mg SQ daily (WT < 150 kg, CrCl > 30 mL/min) *Enoxaparin/Lovenox 30 mg SQ daily (WT < 150 kg, CrCl > 10-29 mL/min) *Enoxaparin/Lovenox 30 mg SQ BID (WT < 150 kg, CrCl > 30 mL/min) AND *Sequential Compression Device (SCD) Data Data Orders Orders Complete Blood Count With Diff (08/13/17 12:12) Comprehensive Metabolic Panel (08/13/17 12:12) Lactic Acid (08/13/17 12:12) Prothrombin Time / Inr (Pt) (08/13/17 12:12) Act Partial Throm Time (Ptt) (08/13/17 12:12) Urinalysis - C+S If Indicated (08/13/17 12:12) Ct Abd/Pel W Iv Contrast(Rout) (08/13/17 12:12) Iv Access Insert/Monitor (08/13/17 12:12) Ecg Monitoring (08/13/17 12:12) Oximetry (08/13/17 12:12) NPO (08/13/17 12:12) Metronidazole 500 Mg Inj (Flagyl 500 Mg (08/13/17 12:15) Sodium Chlor 0.9% 1000 Ml Inj (Ns 1000 M (08/13/17 12:12) Levofloxacin 500 Mg Premix Inj (Levaquin (08/13/17 12:15) Sodium Chloride 0.9% Flush (Ns Flush) (08/13/17 12:15) Electrocardiogram (08/13/17 12:12) Vascular Access Team Consult/P PRN (08/13/17 12:36) Vascular Poc Ultrasound (08/13/17 ) Ed Urine Pregnancytest Poc (08/13/17 12:52) Admit Order (Ed Use Only) (08/13/17 13:36) Labs Laboratory Tests Test 08/13/17 13:11 Assessment/Plan Assessment and Plan Patient 47-year-old white female with a right labial /vulvar abscess . With a history of steroid use orally for vasculitis and COPD Plan is I&D of abscess after admission CT and initial of 12-24 hours of IV antibiotics would include vancomycin with the knowledge that 75% of these abscesses or MRSA positive Carlos White II, MD Aug 13, 2017 14:02
[2017-08-13] MEDS ORDERED: IBUPROFEN 600 MG TAB PO PRN (14:15)
[2017-08-13] MEDS ORDERED: ACETAMINOPHEN 325 MG TAB PO PRN (14:15)
[2017-08-13] MEDS ORDERED: ONDANSETRON HCL 4 MG/2 ML VIAL IV PUSH PRN (14:15)
[2017-08-13] MEDS ORDERED: IOHEXOL 350 MG/ML 10 ML VIAL (for RAD DIAG) IVCONTRAST ONE (14:28)
[2017-08-13] MEDS: LACTATED RINGER'S 1000 ML INJ 1,000 ML IV SCH ×2 (14:29→22:22)
--- NOTE | 2017-08-13 14:40 | RADRPT ---
EXAM DATE/TIME: 08/13/2017 14:13 [facility] COMPARISON: No previous studies available for comparison. INDICATIONS : Labia swelling and pain. IV CONTRAST: 96 cc Omnipaque 350 (iohexol) IV ORAL CONTRAST: No oral contrast ingested. RADIATION DOSE: 10.13 CTDIvol (mGy) MEDICAL HISTORY : Cardiovascular disease. Chronic obstructive pulmonary disease. SURGICAL HISTORY : None. ENCOUNTER: Initial ACUITY: 4 - 6 days PAIN SCALE: 10/10 LOCATION: Bilateral pelvis TECHNIQUE: Volumetric scanning of the abdomen and pelvis was performed. Using automated exposure control and ad justment of the mA and/or kV according to patient size, radiation dose was kept as low as reasonably achievable to obtain optimal diagnostic quality images. DICOM format image data is available electro nically for review and comparison. FINDINGS: LOWER LUNGS: The visualized lower lungs are clear. LIVER: Homogeneous density without lesion. There is no dilation of the biliary tree. No calcified gallston es. SPLEEN: Normal size without lesion. PANCREAS: Within normal limits. KIDNEYS: Normal in size and shape. There is no mass, stone or hydronephrosis. ADRENAL GLANDS: Within normal limits. VASCULAR: There is no aortic aneurysm. BOWEL/MESENTERY: The stomach, small bowel, and colon demonstrate no acute abnormality. There is no free intraperitone al air or fluid. ABDOMINAL WALL: Within normal limits. RETROPERITONEUM: There is no lymphadenopathy. BLADDER: No wall thickening or mass. REPRODUCTIVE: There is swelling and inflammatory change involving the labia and perineum. This greater on the right than the left. There is no drainable fluid collection or gas bubbles. INGUINAL: There are mildly prominent reactive appearing right inguinal lymph nodes. MUSCULOSKELETAL: Within normal limits for patient age. CONCLUSION: 1. Swelling and inflammatory change involving the labia and perineum. This is greater on the right th an the left with no drainable fluid collections or gas. Findings could indicate infection and/or infl ammation. 2. Prominence reactive appearing right inguinal lymph nodes. Leo Priest MD on August 13, 2017 at 14:34 Board Certified Radiologist. This report was verified electronically.
[2017-08-13] MEDS ORDERED: RESP: ALBUTEROL CONC 2.5 MG/0.5 ML NEB NEB PRN (15:00)
[2017-08-13 15:07] LABS: AUTOMATED NEUTROPHIL # 13.1 TH/MM3 (1.8-7.7); BASOPHIL # 0.1 TH/MM3 (0-0.2); BASOPHIL % 0.5 % (0.0-2.0); EOSINOPHIL # 0.2 TH/MM3 (0-0.4); EOSINOPHIL % 1.3 % (0.0-4.0); HEMATOCRIT 40.4 % (35.0-46.0); LYMPH % 9.9 % (9.0-44.0); LYMPHOCYTE # 1.6 TH/MM3 (1.0-4.8); MEAN CORPUSCULAR HEMOGLOBIN 26.1 PG (27.0-34.0); MEAN CORPUSCULAR HGB CONC 32.2 % (32.0-36.0); MEAN PLATELET VOLUME 8.5 FL (7.0-11.0); MONO % 6.3 % (0.0-8.0); PLATELET COUNT 194 TH/MM3 (150-450); RED BLOOD COUNT 4.99 MIL/MM3 (4.00-5.30)
[2017-08-13 15:08] LABS: ALKALINE PHOSPHATASE 114 U/L (45-117); TOTAL BILIRUBIN ADULT 0.5 MG/DL (0.2-1.0); TOTAL PROTEIN 6.9 GM/DL (6.4-8.2)
[2017-08-13 15:14] LABS: ALT (GPT) 21 U/L (10-53); AST (GOT) 20 U/L (15-37); BICARBONATE 26.9 MEQ/L (21.0-32.0); BLOOD UREA NITROGEN 10 MG/DL (7-18); CALCIUM 8.3 MG/DL (8.5-10.1); CHLORIDE 102 MEQ/L (98-107); CREATININE 0.58 MG/DL (0.50-1.00); GLOMERULAR FILTRATION RATE 111 ML/MIN (>89); GLUCOSE,RANDOM 83 MG/DL (74-106); SODIUM (NA) 136 MEQ/L (136-145)
[2017-08-13 15:15] LABS: PROTHROMBIN TIME - PATIENT 10.5 SEC (9.8-11.6)
[2017-08-13] MEDS: HYDROmorphone HCL 4 MG TAB PO PRN ×3 (15:37→23:35)
[2017-08-13] MEDS: RESP: ALBUTEROL 2.5 MG/IPRATROPIUM 0.5 MG NEB (PRN) NEB ×2 (15:43→21:10)
[2017-08-13] MEDS ORDERED: PIPERACIL-TAZO 3.375 GM PREMIX 50 ML IV SCH (16:00)
[2017-08-13] MEDS ORDERED: VANCOMYCIN INJ 500 MG in SODIUM CHLORIDE 0.9% INJ 100 ML IV SCH (17:00)
[2017-08-13] MEDS ORDERED: Vancomycin Consult Pharmacy 1 EA OTHER SCH (18:00)
--- NOTE | 2017-08-13 19:10 | PD.CONS ---
History of Present Illness Service [facility] Consult Requested By [facility] emergency department Reason for Consult Labial abscess Primary Care Physician No Primary Care Physician Diagnoses: (1) Abscess of labia History of Present Illness 47-year-old postmenopausal female who presents to the emergency department today with worsening development of her labial abscess, She was seen in the emergency department and a redo and hospitalist Dr. hWite attending the patient and provided phone check out to me, patient has been started on antibiotics and plan is for EUA and possible I&D tomorrow. she first appreciated it 5-6 days ago, with a small nodule, she tried to compress it and it continued to grow, she went to an outside ER yesterday started on clindamycin , however over the past 2-3 days it has significantly increased in size, she feels somewhat systemically ill, denies nausea or vomiting, endorses fever and chills, is able to void spontaneously. She felt that spontaneously drained Yesterday and also right before this encounter. She denies any history of labial or vulvar surgery or abscesses, She does trim but does not shave her pubic hair. She has obtained subcutaneous infection needing surgical debridement in the past, she has a chronic vasculitis and has been on steroids on / off, she is currently not using steroids. She is here with her Sagrario Review of Systems Constitutional: DENIES: Fever, Chills, Change in appetite Endocrine: DENIES: Heat/cold intolerance Eyes: DENIES: Blurred vision, Eye pain Past Family Social History Allergies: Coded Allergies: No Known Allergies (Verified Adverse Reaction, Unknown, 08/13/17) Past Medical History - Livedoid vasculitis. - Anxiety. - COPD. - GERD. - Obesity. - Chronic pain from her vasculitis and chronic LE ulcers. Past Surgical History - -Screws / plats in left elbow -Left breast abscess drainage Reported Medications See MAR for details - Dilauded 4 mg or pain, DuoNeb, Symbicort, Proventil, albuterol, aspirin. -Patient is on prednisone occasionally, none in the past week, weened her self of - Persantine in the past for vasculitis, stopped `1 month ago b/c she lost contact with her provider. Family History See admission H&P. No None pertinent to this admission Social History to her Sagrario. Unemployed. Social alcohol use, quit tobacco in 2014. Denies drug use. 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 Physical Exam Vital Signs Vital Signs Date Time Temp Pulse Resp B/P (MAP) Pulse Ox O2 Delivery O2 Flow Rate FiO2 08/13/17 18:25 98.4 87 20 120/59 (79) 99 08/13/17 17:19 (79) 21 08/13/17 16:25 97.8 89 18 130/60 (83) 92 08/13/17 15:45 99 21 08/13/17 15:32 98.6 90 17 125/56 (79) 95 Room Air 08/13/17 11:56 98.8 101 20 120/67 (84) 94 Room Air Physical Exam GENERAL: This is a well-nourished, well-developed patient, in no apparent distress. EYES: Extraocular motions intact. No scleral icterus. No injection or drainage. NECK: Trachea midline. No JVD or lymphadenopathy. CARDIOVASCULAR: Regular rate RESPIRATORY: Non labored respiration GASTROINTESTINAL: Abdomen soft, non-tender, nondistended. No hepato-splenomegaly , or palpable masses. No guarding. : Erythema and induration extending to her mons greater on the right than the left, genetic and edema of the right labia minora and majora, at the inferior aspect of right labia minora sinus that is draining cloudy serosanguineous Fluid , extremely painful to touch, no palpable fluctuance. MUSCULOSKELETAL: Extremities without clubbing, cyanosis, or edema. No joint tenderness, effusion, or edema noted. No calf tenderness. Bilateral lower extremities with extensive scars and scabbed ulcerated areas NEUROLOGICAL: Awake and alert. Cranial nerves II through XII intact. Motor and sensory grossly within normal limits. Five out of 5 muscle strength in all muscle groups. Normal speech. Laboratory Laboratory Tests Test 08/13/17 13:11 08/13/17 14:05 Urine Color YELLOW Urine Turbidity CLEAR Urine pH 6.0 Urine Specific [place] 1.022 Urine Protein 30 Urine Glucose (UA) NEG Urine Ketones NEG Urine Occult Blood NEG Urine Nitrite NEG Urine Bilirubin NEG Urine Urobilinogen 2.0 Urine Leukocyte Esterase NEG Urine RBC LESS THAN 1 Urine WBC 1 Urine Squamous Epithelial Cells 1 Urine Bacteria RARE Urine Mucus FEW Microscopic Urinalysis Comment CULT NOT INDICATED White Blood Count 16.0 Red Blood Count 4.99 Hemoglobin 13.0 Hematocrit 40.4 Mean Corpuscular Volume 81.0 Mean Corpuscular Hemoglobin 26.1 Mean Corpuscular Hemoglobin Concent 32.2 Red Cell Distribution Width 17.0 Platelet Count 194 Mean Platelet Volume 8.5 Neutrophils (%) (Auto) 82.0 Lymphocytes (%) (Auto) 9.9 Monocytes (%) (Auto) 6.3 Eosinophils (%) (Auto) 1.3 Basophils (%) (Auto) 0.5 Neutrophils # (Auto) 13.1 Lymphocytes # (Auto) 1.6 Monocytes # (Auto) 1.0 Eosinophils # (Auto) 0.2 Basophils # (Auto) 0.1 CBC Comment DIFF FINAL Differential Comment Prothrombin Time 10.5 Prothromb Time International Ratio 1.0 Activated Partial Thromboplast Time 26.6 Blood Urea Nitrogen 10 Creatinine 0.58 Random Glucose 83 Total Protein 6.9 Albumin 3.0 Calcium Level 8.3 Alkaline Phosphatase 114 Aspartate Amino Transf (AST/SGOT) 20 Alanine Aminotransferase (ALT/SGPT) 21 Total Bilirubin 0.5 Sodium Level 136 Potassium Level 4.2 Chloride Level 102 Carbon Dioxide Level 26.9 Anion Gap 7 Estimat Glomerular Filtration Rate 111 Lactic Acid Level 0.7 Date/Time Source Procedure Growth Status 08/13/17 14:09 Blood Peripheral Aerobic Blood Culture Pending Received 08/13/17 14:09 Blood Peripheral Anaerobic Blood Culture Pending Received Result Diagram: 08/13/17 1405 08/13/[address] report impression from today 1. Swelling and inflammatory change involving the labia and perineum. This is greater on the right than the left with no drainable fluid collections or gas. Findings could indicate infection and/or inflammation. 2. Prominence reactive appearing right inguinal lymph nodes. Assessment and Plan Problem List: (1) Abscess of labia ICD Codes: N76.4 - Abscess of vulva Assessment and Plan 1. Right labia cellulitis / possible abscess: On exam appears to be area that would benefit from incision and drainage, plan is for this in the AM. NPO at midnight, will reassess in the morning, if significant improvement may only need abx but likely for OR for evaluation under anesthesia, incision and drainage. Discussed risks, benefits, alternatives to patient. Patient has been afebrile, normal LA, white blood cell count elevated, blood cultures pending. AM CBC ordered. Pending labs GCC, A1C, HIV. .- Continue IV Vanc and Zosyn. Consulted pharmacy for vancomycin dosing. - UPT neg - Likely need abx through weekend, possible discharge over weekend if improving , will assess daily. 2. Vasculitis / chronic pain / COPD: continue home Dilaudid for prn pain and continue other home meds Jon Goetz MD Aug 13, 2017 19:09
[2017-08-13] MEDS: SODIUM CHLORIDE 0.9% FLUSH 10 ML FLUSH IV FLUSH SCH (21:00)
[2017-08-13] MEDS ORDERED: ALBUTEROL SULFATE 2 MG TAB PO SCH (22:00)
[2017-08-13 22:12] LABS: HEMOGLOBIN A1C 5.7 % (4.3-6.0)
[2017-08-13] MEDS: HYDROmorphone HCL PF 2 MG/ML VIAL IV PUSH PRN (22:12)
[2017-08-13] MEDS: BUDESONIDE-FORMOTEROL 80/4.5 MCG INHALER INH SCH (22:43)
[2017-08-14] MEDS: VANCOMYCIN INJ 900 MG in SODIUM CHLOR 0.9% 250 ML INJ 250 ML IV SCH ×3 (00:23→17:36)
[2017-08-14] MEDS: PIPERACILLIN/TAZ 3.375 GM VIAL 3.375 GM in SODIUM CHLORIDE 0.9% INJ 100 ML IV SCH ×3 (00:23→16:33)
[2017-08-14 02:07] VITALS: BP 114/80; PULSE 79; RESP 20; TEMP 97.8; O2SAT 93
[2017-08-14] MEDS ORDERED: CHLORHEXIDINE GLUCONATE 2 % 1 PACK (2 CLOTHS) TOPICAL PRN (03:15)
[2017-08-14] MEDS ORDERED: POVIDONE IODINE 5% (ANTISEPSIS KIT) 4 APPLICATIONS EACH NARE PRN (03:15)
[2017-08-14] MEDS ORDERED: LACTATED RINGER'S 1000 ML IV PRN (03:15)
[2017-08-14] MEDS ORDERED: SODIUM CHLORID 0.9% 500 ML IV PRN (03:15)
[2017-08-14] MEDS: HYDROmorphone HCL 4 MG TAB PO PRN ×5 (03:27→20:29)
[2017-08-14] MEDS: HYDROmorphone HCL PF 2 MG/ML VIAL IV PUSH PRN ×3 (05:15→14:58)
[2017-08-14] MEDS ORDERED: BUPIVACAINE HCL PF 0.5% 30 ML VIAL ONE (05:31)
[2017-08-14] MEDS: LACTATED RINGER'S 1000 ML INJ 1,000 ML IV SCH ×2 (06:15→13:28)
[2017-08-14 06:30] VITALS: BP 122/58; PULSE 81; RESP 20; TEMP 98.6; O2SAT 95
[2017-08-14] MEDS ORDERED: *RESP: ALBUTEROL 2.5 MG/3 ML NEB (PRN) PERIprocedural Use ONLY NEB ONE (07:41)
[2017-08-14] MEDS ORDERED: *HYDROmorphone PF 1 MG VIAL PERIprocedural Use ONLY ONE ×2 (07:49→08:13)
--- NOTE | 2017-08-14 07:49 | PD.OP ---
Operative Report Date of Surgery: Aug 14, 2017 Preoperative Diagnosis: (1) Abscess of labia Postoperative Diagnosis: (1) Abscess of labia Procedure: Incision and drainage of right labial abscess Anesthesia: GETA Surgeon: Jon Goetz Delivery Consultant(s): Dr. Hurt was present and available in the OR during the case Operation and Findings: Loculations of pus from the right inferior vulva extending up to the superior vulva and inferior mons, erythema and induration marked at the end of the case. Assessment blood loss: 25 cc Urine output: 150 cc clear Fluid replacement: 600 cc Specimens: Culture of abscess Combinations: None Disposition: Stable to PACU then return to the floor, plan is for packing change tomorrow may need to be done in the operating room. Jon Goetz MD Aug 14, 2017 07:49
[2017-08-14] MEDS ORDERED: MIDAZOLAM HCL 2 MG/2 ML VIAL ONE (07:50)
[2017-08-14] MEDS ORDERED: *MEPERIDINE 25 MG INJ VIAL PERIprocedural Use ONLY ONE (07:53)
[2017-08-14 08:43] VITALS: BP 121/58; PULSE 89; RESP 18; TEMP 98.1; O2SAT 93
[2017-08-14] MEDS: BUDESONIDE-FORMOTEROL 80/4.5 MCG INHALER INH SCH ×2 (08:45→20:30)
[2017-08-14] MEDS: ALBUTEROL SULFATE 90 MCG/ACT HFA 8 GM INHALER INH SCH ×2 (08:49→20:30)
[2017-08-14] MEDS: SODIUM CHLORIDE 0.9% FLUSH 10 ML FLUSH IV FLUSH SCH ×2 (09:00→20:36)
[2017-08-14] MEDS ORDERED: PROPOFOL 200 MG/20 ML AMP IV ONE (12:00)
[2017-08-14] MEDS ORDERED: ONDANSETRON HCL 4 MG/2 ML VIAL IV ONE (12:00)
[2017-08-14] MEDS ORDERED: DEXAMETHASONE SOD PHOS 4 MG/ML VIAL IV ONE (12:00)
[2017-08-14] MEDS ORDERED: LIDOCAINE HCL 1% PF 5 ML SYRINGE OTHER ONE (12:00)
[2017-08-14 12:38] VITALS: BP 117/56; PULSE 90; RESP 17; TEMP 99.5; O2SAT 90
[2017-08-14] MEDS ORDERED: PHARMACY ORDERED LAB ONE (15:45)
[2017-08-14] MEDS: RESP: ALBUTEROL 2.5 MG/IPRATROPIUM 0.5 MG NEB (PRN) NEB (15:49)
[2017-08-14 16:00] VITALS: BP 120/61; PULSE 97; RESP 18; TEMP 100; O2SAT 90
--- NOTE | 2017-08-14 16:32 | EKG ---
Date Performed: 08/13/2017 Time Performed: 12:37:59 PTAGE: 47 years EKG: Sinus rhythm NORMAL ECG PREVIOUS TRACING : 07/06/2017 23.58 Since previous tracing, no significant change noted DOCTOR: Jose Agosto Interpretating Date/Time 08/14/2017 16:31:29
[2017-08-14 20:29] VITALS: BP 108/51; PULSE 94; RESP 19; TEMP 98.5; O2SAT 92
[2017-08-14] MEDS ORDERED: HYDROmorphone HCL PF 2 MG/ML VIAL IM ONE (21:00)
[2017-08-14] MEDS: LORazepam 1 MG TAB PO PRN (21:39)
--- NOTE | 2017-08-14 21:45 | MP ---
cc: FEI QUIROZ MD DATE OF SURGERY: 08/14/2017. PREOPERATIVE DIAGNOSIS: Suspected right labial abscess. POSTOPERATIVE DIAGNOSIS: Confirmed right labial abscess. OPERATION: 1. Evaluation under anesthesia. 2. Incision and drainage of right labial abscess SURGEON: Fei Quiroz MD. NEWSPAPER MANAGING EDITOR SURGEON: Molly Hurt MD was present and available during the case in the operating room. FINDINGS: Extensive erythema and induration of the right labia extending to the mons. This area was marked with a marker. A 3 cm incision was made on the lateral aspect of the right labia where it had already began to drain, the abscess cavity extended to the mons and the area was packed with a single roll of Kerlix. Otherwise normal external female genitalia. SPECIMEN: Abscess culture. ESTIMATED BLOOD LOSS: 25 cc. URINE OUTPUT: 150 cc clear via in and out catheter. FLUID REPLACEMENT: 600 cc. DVT PROPHYLAXIS: SCDs throughout the case. ANTIBIOTICS: The patient was scheduled Vancomycin and Zosyn prior to the procedure. COUNTS: Correct x2. TIME OUT: Time out done and correct. COMPLICATIONS: None. DISPOSITION: Stable to PACU then return to the floor. Packing will be removed tomorrow. The patient may need change in the operating room if not tolerated at the bedside. INDICATIONS FOR THE PROCEDURE: This patient is a 47-year-old female who presented with an enlarging right labial abscess yesterday to the emergency department. A CT scan did not show any obvious loculation or abscess; however, on clinical exam, it was felt that it would benefit from incision and drainage. The patient was started on antibiotics and scheduled for surgery for the following morning. Please see the history and physical for further details and consent. DESCRIPTION OF THE PROCEDURE IN DETAIL: The patient was taken to the operating room and placed in candy cane stirrups with her arms out. The vagina and perineum were prepped and draped in the sterile fashion. Then 0.25% Marcaine was used for local anesthesia. A scalpel was used to enlarge a draining sinus on the right inferior labia majora. Using a hemostat, loculations were broken up, which extended deeply to the sinus and superiorly up to the mons. The cavity was irrigated and packed with a single roll of Kerlix. The skin edges were oozing and hemostasis was achieved with the Bovie. A dressing was applied and the patient tolerated the procedure well and was transferred to the post-anesthesia care unit in stable condition. MD DEXTER Arevalo/SENTHIL /7:48 AM /9:30 PM CRISTIAN
[2017-08-15] VITALS (7 sets, daily range): BP systolic 108–162; BP diastolic 57–95; PULSE 78–90; RESP 18–20; TEMP 97.6–98.3; O2SAT 92–97
[2017-08-15] MEDS: HYDROmorphone HCL 4 MG TAB PO PRN ×6 (00:20→19:53)
[2017-08-15] MEDS: LORazepam 1 MG TAB PO PRN ×4 (03:45→23:17)
[2017-08-15] MEDS: PIPERACILLIN/TAZ 3.375 GM VIAL 3.375 GM in SODIUM CHLORIDE 0.9% INJ 100 ML IV SCH ×6 (07:57→19:13)
[2017-08-15] MEDS: VANCOMYCIN INJ 900 MG in SODIUM CHLOR 0.9% 250 ML INJ 250 ML IV SCH ×5 (07:57→23:11)
[2017-08-15] MEDS: LACTATED RINGER'S 1000 ML INJ 1,000 ML IV SCH ×3 (07:57→16:00)
[2017-08-15] MEDS: ALBUTEROL SULFATE 90 MCG/ACT HFA 8 GM INHALER INH SCH ×2 (07:58→23:09)
[2017-08-15] MEDS: BUDESONIDE-FORMOTEROL 80/4.5 MCG INHALER INH SCH ×2 (07:58→23:08)
[2017-08-15] MEDS: SODIUM CHLORIDE 0.9% FLUSH 10 ML FLUSH IV FLUSH SCH ×2 (07:58→23:09)
[2017-08-15] MEDS: HYDROmorphone HCL PF 2 MG/ML VIAL IV PUSH PRN ×3 (09:56→19:11)
--- NOTE | 2017-08-15 10:02 | HHI.HP ---
HPI Chief Complaint Now POD 1 s/p I & D of right labial abcess chronic peripheral vasculitis, rheumatoid arthritis and frequent cellultis and abcess formation no stable housing, outpatient care or medication access at this time Date Seen: Aug 15, 2017 Time Seen: 09:49 Travel History International Travel<30 Days: No Contact w/Intl Traveler<30Days: No Known Affected Area: No History of Present Illness HPI 47 yo mwf P1 (spouse Sagrario) with intact pelvis and LMP > 1 year presented to [place] with large painful labial swelling. Transferred to the [facility] and put on Dr. Yves Dye's service--new supervisor inspection room with our group. Taken to OR yesterday by us both to open,drain and pack the large tracking labial abcess. Culture pending. WIck still in place. Cellultis has diminished but still very painful. Due to her BMI and peripheral vascular disease, she lost her IV access last night and just had a peripheral left arm line placed, so she is behind on Zosyn and vancomycin. She was NPO for a reevaluation under anesthesia this am, but I am postponing until another day of IV antibiotics and an ID consult. Will need to go to OR regardless to remove packing. May need serial EUAs and repacking. States she has been having fever and chills. No nausea or vomiting No diarrhea She is hungry. States she has RA and a peripheral vasculitis that has caused many hospitalizations for similar I & Ds of breast and abdominal wall. Has been on gabapentin and platelet thinners in past but no current PCP. Still gets her dilaudid po from out patient management in [place]. Upset she missed appointment with him yesterday. States has severe COPD and has productive cough at this time. Former smoker. No illicit drugs. Occasional EtOH She is anxious and depressed. Fears losing her temporary long-term and living in her car with these conditions. Has no steady work. Seeking disability. History Past Medical History Narrative Medical section 21 years ago multiple I & Ds Allergies-Medications (Allergen,Severity, Reaction): Coded Allergies: No Known Allergies (Verified Adverse Reaction, Unknown, 08/13/17) Home Meds Active Scripts Clindamycin (Clindamycin) 300 Mg Cap, 300 MG PO TID for Infection, #30 CAP 0 Refills Prov:Adam Hicks MD 1/11/18 Ipratropium-Albuterol Neb (Duoneb) 0.5-2.5 Mg/3 Ml Neb, 1 AMPULE NEB Q8HR Y for wheezing, #1 BOX q8hrs schedules x 3-4 days then as needed Prov:Evy Arroyo MD 04/15/17 Budesonide-Formoterol Inh (Symbicort Inh) 160-4.5 Mcg/Act Aero, 2 PUFF INH Q12HR , #1 INHALER 0 Refills Prov:Evy Arroyo MD 04/15/17 Albuterol 6.7 GM Inh (Proventil Hfa 6.7 GM Inh) 90 Mcg/Act Aer, 2 PUFF INH Q4- 6H Y for SHORTNESS OF BREATH, #1 INHALER 0 Refills Prov:Evy Arroyo MD 04/15/17 Hydromorphone (Dilaudid) 4 Mg Tab, 4 MG PO Q4-6H Y for Pain Management, #12 TAB 0 Refills Prov:Evy Arroyo MD 04/15/17 Albuterol Neb (Albuterol Neb) 2.5 Mg/0.5 Ml Neb, 2.5 MG NEB TID NEB Y for SHORTNESS OF BREATH, #90 NEBULE 0 Refills Note: The Albuterol Sulfate Inhalation Solution is concentrated and must be diluted. Read complete instructions carefully before using. Prov:Smith Kat MD 11/13/16 Aspirin (Aspirin) 325 Mg Tab, 325 MG PO DAILY, #30 TAB Prov:Smith Kat MD 11/13/16 Reported Medications Ibuprofen (Ibuprofen) 800 Mg Tab, 800 MG PO Q6HR Y for PAIN, #40 TAB 0 Refills 11/10/16 Discontinued Scripts Prednisone (Prednisone) 20 Mg Tab, 20 MG PO BID for 5 Days, #10 TAB 0 Refills Prov:Lynda Sun MD 07/07/17 Nystatin Liq (Nystatin Liq) 100,000 unit/ml Susp, 5 ML SWISH-SWAL QID for Infection for 14 Days, ML 0 Refills Swish and swallow over 20 minutes Prov:Adelia William [employer]TER [employer]HE 06/27/17 Gabapentin (Neurontin) 300 Mg Cap, 300 MG PO BID, #60 CAP Prov:Smith Kat MD 11/13/16 Dipyridamole (Dipyridamole) 75 Mg Tab, 75 MG PO Q6HR, #120 TAB Prov:Smith Kat MD 11/13/16 Review of Systems General / Constitutional: Fever, Chills Cardiovascular: Tachycardia Respiratory: Cough, Short of Breath Skin: Rash, Dryness Neurologic: Weakness Psychiatric: Anxiety, Depression, Suicidal Ideations Physical Exam Vital Signs Date Time Temp Pulse Resp B/P (MAP) Pulse Ox O2 Delivery O2 Flow Rate FiO2 08/15/17 08:00 98.0 83 18 142/80 (100) 97 08/15/17 05:40 98.2 82 20 111/64 (80) 94 08/15/17 04:45 20 08/15/17 00:00 98.1 83 20 108/57 (74) 97 08/14/17 22:10 20 08/14/17 20:29 98.5 94 19 108/51 (70) 92 08/14/17 16:00 100.0 97 18 120/61 (80) 90 08/14/17 12:38 99.5 90 17 117/56 (76) 90 Narrative GENERAL: over weight. SKIN: multiple scars from I & Ds legs shiny and brown with minimal peripheral pulses and areas of healed break down HEAD: Normocephalic and atraumatic. EYES: No scleral icterus. No injection or drainage. ENT: No nasal drainage noted. Mucous membranes pink. Airway patent. NECK: Supple, trachea midline. No JVD. CARDIOVASCULAR: Regular rate and rhythm without murmurs, gallops, or rubs. RESPIRATORY: Breath sounds equal bilaterally. No accessory muscle use. BREASTS: Bilateral exam showed no masses , no retractions, no nipple discharge. ABDOMEN/GI: Abdomen soft, non-tender, bowel sounds present, no rebound, no guarding Gravid to [-] weeks size Fundal Height: [-] GENITOURINARY: mons still red, warm and painful to touch but better than yesterday packing in place--has an entire curlex inside the defect on the right and it cannot be removed without anesthesia EXTREMITIES: poor skin turgor, shiny, diminished pulses, old scars BACK: Nontender without obvious deformity. No CVA tenderness. NEUROLOGICAL: Awake and alert. Motor and sensory grossly within normal limits. Five out of 5 muscle strength in all muscle groups. Normal speech. Caprini VTE Risk Assessment Caprini VTE Risk Assessment: Mod/High Risk (score >= 2) Caprini Risk Assessment Model Point Value = 1 Point Value = 2 Point Value = 3 Point Value = 5 Age 41-60 Minor surgery BMI > 25 kg/m2 Swollen legs Varicose veins or History of unexplained or recurrent spontaneous Oral contraceptives or hormone replacement Sepsis (< 1 month) Serious lung disease, including pneumonia (< 1 month) Abnormal pulmonary function Acute myocardial infarction Congestive heart failure (< 1 month) History of inflammatory bowel disease Medical patient at bed rest Age 61-74 Arthroscopic surgery Major open surgery (> 45 min) Laparoscopic surgery (> 45 min) Malignancy Confined to bed (> 72 hours) Immobilizing plaster cast Central venous access Age >= 75 History of VTE Family history of VTE Factor V Leiden Prothrombin [id number] Lupus anticoagulant Anticardiolipin antibodies Elevated serum homocysteine Heparin-induced thrombocytopenia Other congenital or acquired thrombophilia Stroke (< 1 month) Elective arthroplasty Hip, pelvis, or leg fracture Acute spinal cord injury (< 1 month) Prophylaxis Regimen Total Risk Factor Score Risk Level Prophylaxis Regimen 0-1 Low Early ambulation 2 Moderate Order ONE of the following: *Sequential Compression Device (SCD) *Heparin 5000 units SQ BID 3-4 Higher Order ONE of the following medications: *Heparin 5000 units SQ TID *Enoxaparin/Lovenox 40 mg SQ daily (WT < 150 kg, CrCl > 30 mL/min) *Enoxaparin/Lovenox 30 mg SQ daily (WT < 150 kg, CrCl > 10-29 mL/min) *Enoxaparin/Lovenox 30 mg SQ BID (WT < 150 kg, CrCl > 30 mL/min) AND/OR *Sequential Compression Device (SCD) 5 or more Highest Order ONE of the following medications: *Heparin 5000 units SQ TID (Preferred with Epidurals) *Enoxaparin/Lovenox 40 mg SQ daily (WT < 150 kg, CrCl > 30 mL/min) *Enoxaparin/Lovenox 30 mg SQ daily (WT < 150 kg, CrCl > 10-29 mL/min) *Enoxaparin/Lovenox 30 mg SQ BID (WT < 150 kg, CrCl > 30 mL/min) AND *Sequential Compression Device (SCD) Data Data Vital Signs Reviewed: Yes Orders Orders Npo After Midnight W/ Po Meds (08/15/17 Breakfast) Class Iv Pacu Ea 30 Min (08/14/17 ) General/Pacu (08/14/17 ) Post Anesthesia Oxygen (08/14/17 ) Post Anesthesia Aerosol (08/14/17 ) Lactated Ringer's 1000 Ml Inj (Lr 1000 M (08/15/17 00:00) Vascular Poc Ultrasound (08/14/17 ) Hydromorphone Pf Inj (Dilaudid Pf Inj) (08/14/17 21:00) Lorazepam (Ativan) (08/14/17 21:00) Vascular Access Team Consult/P PRN (08/15/17 07:41) Consult Infectious Disease (08/15/17 ) Case Management Consult (08/15/17 ) Consult Hospitalist (08/15/17 ) Consult Psychiatry (08/15/17 ) Consult Rheumatology (08/15/17 ) Labs Date/Time Source Procedure Growth Status 08/13/17 14:09 Blood Peripheral Aerobic Blood Culture - Preliminary NO GROWTH IN 1 DAY Resulted 08/13/17 14:09 Blood Peripheral Anaerobic Blood Culture - Preliminary NO GROWTH IN 1 DAY Resulted 08/14/17 07:10 Abscess Other Fungal Smear - Final NO FUNGAL ELEMENTS SEEN. Resulted 08/14/17 07:10 Abscess Other Fungal Culture Pending Resulted Assessment/Plan Assessment and Plan Patient 47-year-old white female with a right labial /vulvar abscess . With a history of steroid use orally for vasculitis and COPD Plan is I&D of abscess after admission CT and initial of 12-24 hours of IV antibiotics would include vancomycin with the knowledge that 75% of these abscesses or MRSA positive 08/15/17/ 10:00 am 1) POD 1 labial abcess drainage and packing. Anticipate removing packing tomorrow. Postponed from today due to lack of IV access and antibiotic administration. May need serial packings under anesthesia 2)Chronic conditions of COPD, RA and peripheral vasculitis not being addressed on outpatient basis. Needs medications renewed and payor source 3) see consults and medications. Molly Hurt MD Aug 15, 2017 10:02
--- NOTE | 2017-08-15 11:36 | RADRPT ---
EXAM DATE/TIME: 08/15/2017 11:03 [facility] COMPARISON: No previous studies available for comparison. INDICATIONS : Shortness of breath, cough MEDICAL HISTORY : Chronic obstructive pulmonary disease. Cardiovascular disease SURGICAL HISTORY : None. ENCOUNTER: Initial ACUITY: 1 day PAIN SCORE: 0/10 LOCATION: Bilateral chest FINDINGS: PA and lateral views of the chest. The lungs are clear. Cardiomediastinal silhouette within normal li mits. No evidence of pleural effusion or pneumothorax. CONCLUSION: No acute cardiopulmonary disease identified. Fito Walton MD on August 15, 2017 at 11:33 Board Certified Radiologist. This report was verified electronically.
[2017-08-15] MEDS: DULoxetine HCl DR 30 MG CAP PO SCH (12:01)
--- NOTE | 2017-08-15 18:02 | PD.ID.CON ---
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 She compressed it and it continued to grow, she went to an outside ER yesterday started on clindamycin, however over the past 2-3 days it has significantly increased in size, she feels somewhat systemically ill, denies nausea or vomiting, endorses fever and chills, is able to void spontaneously. She denies any history of labial or vulvar surgery or abscesses , She does trim but does not shave her pubic hair. She has obtained subcutaneous infection needing surgical debridement in the past, she has a chronic vasculitis and has been on steroids on / off, she is currently not using steroids. Of note patients past medical history is significant for Rheumatological disorders with associated vasculitis and she has been on steroids off and on. She has presented with LE ulcers in the past admissions with secondary cellulitis. ID consulted for eval and Mment of labial abscess. Review of Systems ROS Limitations: Poor Historian Constitutional: COMPLAINS OF: Fever, DENIES: Diaphoretic episodes, Fatigue, Weight gain, Weight loss, Chills, Dizziness, Change in appetite, Night Sweats Endocrine: DENIES: Abnorml menstrual pattern, Heat/cold intolerance, Polydipsia , Polyuria, Polyphagia Eyes: DENIES: Blurred vision, Diplopia, Eye inflammation, Eye pain, Vision loss , Photosensitivity, Double Vision Respiratory: DENIES: Apneas, Cough, Snoring, Wheezing, Hemoptysis, Sputum production, Shortness of breath Cardiovascular: DENIES: Chest pain, Palpitations, Syncope, Dyspnea on Exertion , PND, Lower Extremity Edema, Orthopnea, Claudication Gastrointestinal: DENIES: Abdominal pain, Black stools, Bloody stools, Constipation, Diarrhea, Nausea, Vomiting, Difficulty Swallowing, Anorexia Genitourinary: DENIES: Abnormal vaginal bleeding, Dysmenorrhea, Dyspareunia, Sexual dysfunction, Urinary frequency, Urinary incontinence, Urgency, Hematuria , Dysuria, Nocturia, Vaginal discharge Musculoskeletal: DENIES: Joint pain, Muscle aches, Stiffness, Joint Swelling, Back pain, Neck pain Integumentary: DENIES: Abnormal pigmentation, Pruritus, Rash, Nail changes, Breast masses, Breast skin changes, Nipple discharge Hematologic/lymphatic: DENIES: Bruising, Lymphadenopathy Immunologic/allergic: DENIES: Eczema, Urticaria Neurologic: DENIES: Abnormal gait, Headache, Localized weakness, Paresthesias, Seizures, Speech Problems, Tremor, Poor Balance Psychiatric: DENIES: Anxiety, Confusion, Mood changes, Depression, Hallucinations, Agitation, Suicidal Ideation, Homicidal Ideation, Delusions Except as stated in HPI: all other systems reviewed are Neg Past Family Social History Allergies: Coded Allergies: No Known Allergies (Verified Adverse Reaction, Unknown, 08/13/17) Past Medical History vasculitis. Anxiety. COPD. GERD. Obesity. 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 Past Surgical History Screws / plats in left elbow Left breast abscess drainage Reported Medications Reported Meds & Active Scripts Active Clindamycin (Clindamycin HCl) 300 Mg Cap 300 Mg PO TID Duoneb (Ipratropium-Albuterol Neb) 0.5-2.5 Mg/3 Ml Neb 1 Ampule NEB Q8HR PRN q8hrs schedules x 3-4 days then as needed Symbicort Inh (Budesonide/Formoterol Fumarate) 160-4.5 Mcg/Act Aero 2 Puff INH Q12HR Proventil Hfa 6.7 GM Inh (Albuterol Sulfate) 90 Mcg/Act Aer 2 Puff INH Q4-6H PRN Dilaudid (Hydromorphone HCl) 4 Mg Tab 4 Mg PO Q4-6H PRN Albuterol Neb (Albuterol Sulfate) 2.5 Mg/0.5 Ml Neb 2.5 Mg NEB TID NEB PRN Note: The Albuterol Sulfate Inhalation Solution is concentrated and must be diluted. Read complete instructions carefully before using. Aspirin 325 Mg Tab 325 Mg PO DAILY Reported Ibuprofen 800 Mg Tab 800 Mg PO Q6HR PRN Active Ordered Medications Current Medications Medications (Trade) Dose Ordered Sig/Juanpablo Route Start Time Stop Time Status Last Admin (NS Flush) 2 ml UNSCH PRN IV FLUSH 08/13/17 14:15 (NS Flush) 2 ml BID IV FLUSH 08/13/17 21:00 (Tylenol) 650 mg Q6H PRN PO 08/13/17 14:15 (Motrin) 600 mg Q4H PRN PO 08/13/17 14:15 (Zofran Inj) 4 mg Q6H PRN IV PUSH 08/13/17 14:15 08/13/17 22:14 (Duoneb Neb) 1 ampule Q6HR NEB PRN NEB 08/13/17 15:00 08/14/17 15:49 (Symbicort 80-4.5 Mcg Inh) 1 puff Q12HR INH 08/13/17 21:00 08/15/17 07:58 (Albuterol Concentrated Neb) 2.5 mg Q6HR NEB PRN NEB 08/13/17 15:00 (Dilaudid) 4 mg Q4H PRN PO 08/13/17 15:00 08/15/17 15:59 Pharmacy Profile Note 0 ml @ 0 mls/hr UNSCH OTHER 08/13/17 18:00 (Dilaudid Pf Inj) 2 mg Q4H PRN IV PUSH 08/13/17 19:15 08/15/17 14:06 (Proair Hfa Inh) 2 puff BID INH 08/14/17 09:00 08/15/17 07:58 Lactated Ringer's 1,000 ml @ 30 mls/hr Q24H PRN IV 08/14/17 03:15 08/17/17 03:14 Sodium Chloride 500 ml @ 30 mls/hr [id number] PRN IV 08/14/17 03:15 08/17/17 03:14 (Betadine 5% Antisepsis Kit) 1 applic UNIT CONTROLLER PRN EACH NARE 08/14/17 03:15 08/17/17 03:14 (Chlorhexidine 2% Cloth) 3 pack UNIT CONTROLLER PRN TOPICAL 08/14/17 03:15 08/17/17 03:14 Lactated Ringer's 1,000 ml @ 125 mls/hr Q8H IV 08/15/17 00:00 (Ativan) 1 mg Q6H PRN PO 08/14/17 21:00 08/15/17 16:00 (Persantine) 75 mg Q8HR PO 08/16/17 12:00 (Aspirin) 325 mg DAILY PO 08/16/17 11:00 (Cymbalta Dr) 30 mg DAILY PO 08/15/17 12:00 08/15/17 12:01 Vancomycin HCl 900 mg/Sodium Chloride 259 ml @ 250 mls/hr Q8H IV 08/15/17 20:00 Miscellaneous Information SPECIFIC LAB TO BE [facility]... ONCE ONCE .XX 08/15/17 19:45 08/15/17 19:46 Piperacillin Sod/ Tazobactam Sod 3.375 gm/Sodium Chloride 100 ml @ 200 mls/hr Q8H IV 08/15/17 18:00 Family History reviewed and NC to current ID problems. Social History to her [place]. Unemployed. Social alcohol use, quit tobacco in 2014. Denies drug use. Physical Exam Vital Signs Vital Signs Date Time Temp Pulse Resp B/P (MAP) Pulse Ox O2 Delivery O2 Flow Rate FiO2 08/15/17 16:52 98.2 82 18 142/85 (104) 94 08/15/17 12:30 97.6 90 18 136/82 (100) 95 08/15/17 08:00 98.0 83 18 142/80 (100) 97 08/15/17 05:40 98.2 82 20 111/64 (80) 94 08/15/17 04:45 20 08/15/17 00:00 98.1 83 20 108/57 (74) 97 08/14/17 22:10 20 08/14/17 20:29 98.5 94 19 108/51 (70) 92 Physical Exam GENERAL: This is a well-nourished, well-developed patient, in no apparent distress. SKIN: Cool and dry. HEAD: Atraumatic. Normocephalic. No temporal or scalp tenderness. EYES: Pupils equal round and reactive. Extraocular motions intact. No scleral icterus. No injection or drainage. ENT: Nose without bleeding, purulent drainage or septal hematoma. Throat without erythema, tonsillar hypertrophy or exudate. Uvula midline. Airway patent. NECK: Trachea midline. Supple, nontender, no meningeal signs. CARDIOVASCULAR: HS audible. RESPIRATORY: Clear to auscultation. Breath sounds equal bilaterally. No wheezes , rales, or rhonchi. GASTROINTESTINAL: Abdomen soft, non-tender, nondistended. MUSCULOSKELETAL: Bilateral LE with chronic LE discoloration and vascular changes. NEUROLOGICAL: Awake and alert. Grossly non focal Genital exam: accompanied by forest management professor. Mon pubis and bilateral labia with erythema, induration and tenderness. Induration most prominent on right labia. A packing was in place in right side labia. Psych flat affect IV line sites with no e.o infection. Laboratory Date/Time Source Procedure Growth Status 08/13/17 14:09 Blood Peripheral Aerobic Blood Culture - Preliminary NO GROWTH IN 2 DAYS Resulted 08/13/17 14:09 Blood Peripheral Anaerobic Blood Culture - Preliminary NO GROWTH IN 2 DAYS Resulted 08/14/17 07:10 Abscess Other Fungal Smear - Final NO FUNGAL ELEMENTS SEEN. Resulted 08/14/17 07:10 Abscess Other Fungal Culture Pending Resulted Result Diagram: 08/13/17 1405 08/13/17 1405 Imaging Last Impressions Chest X-Ray 08/15/17 0000 Signed Impressions: Service Date/Time: Tuesday, August 15, 2017 11:03 - CONCLUSION: No acute cardiopulmonary disease identified. Fito Walton MD Abdomen/Pelvis CT 08/13/17 1212 Signed Impressions: Service Date/Time: August 14:13 - CONCLUSION: 1. Swelling and inflammatory change involving the labia and perineum. This is greater on the right than the left with no drainable fluid collections or gas. Findings could indicate infection and/or inflammation. 2. Prominence reactive appearing right inguinal lymph nodes. Leo Priest MD Assessment and Plan Assessment and Plan Right labial abscess possible necrotizing fascitis component. Patient has had some drainage at this point. Bilateral labia and mons pubis as well as perineal cellulitis. Vasculitis with chronic painful ulcers. Obesity recs Continue Zosyn IV Continue Vanco IV (target 10-15) Start oral clinda for toxin neutralization effect if necrotizing fascitis. Patient needs further surgical exploration and drainage of abscess. If after this surgery the infection continues to spread or if any change in clinical condition overnight she will need escalation of antibiotics please call me through call center. Patient has difficulty with IV access and has missed doses.Candy RN to get vascular team to place PICC line. PICC team reports will not be able to place PICC tonight. Patient has 1 PIV at present time which is functional. If IV access issues overnight ok to switch to oral levaquin, oral flagyl and oral zyvox. Recommend placement of central line in OR or PICC in am. Ok to place PICC from ID standpoint as blood cultures are negative or CL by anesthesia or IR. Moira Pettit MD Aug 15, 2017 18:02
[2017-08-15] MEDS: RESP: ALBUTEROL 2.5 MG/IPRATROPIUM 0.5 MG NEB (PRN) NEB (19:32)
[2017-08-15] MEDS ORDERED: PHARMACY ORDERED LAB ONE (19:45)
[2017-08-15] MEDS: CLINDAMYCIN 150 MG CAP PO SCH (19:46)
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
[2017-08-15 21:51] LABS: AUTOMATED NEUTROPHIL # 4.8 TH/MM3 (1.8-7.7); BASOPHIL # 0.1 TH/MM3 (0-0.2); EOSINOPHIL # 0.3 TH/MM3 (0-0.4); EOSINOPHIL % 4.4 % (0.0-4.0); HEMATOCRIT 37.6 % (35.0-46.0); HEMOGLOBIN 12.1 GM/DL (11.6-15.3); LYMPH % 19.6 % (9.0-44.0); LYMPHOCYTE # 1.4 TH/MM3 (1.0-4.8); MEAN CORPUSCULAR HEMOGLOBIN 26.1 PG (27.0-34.0); MEAN CORPUSCULAR HGB CONC 32.2 % (32.0-36.0); MEAN PLATELET VOLUME 8.5 FL (7.0-11.0); MONO % 7.8 % (0.0-8.0); MONOCYTE # 0.6 TH/MM3 (0-0.9); NEUT % 67.2 % (16.0-70.0); PLATELET COUNT 194 TH/MM3 (150-450); RED BLOOD COUNT 4.64 MIL/MM3 (4.00-5.30); RED CELL DISTRIBUTION WIDTH 16.6 % (11.6-17.2); WHITE BLOOD COUNT 7.2 TH/MM3 (4.0-11.0)
[2017-08-15 22:16] LABS: ALBUMIN 2.8 GM/DL (3.4-5.0); ALT (GPT) 21 U/L (10-53); AST (GOT) 19 U/L (15-37); BICARBONATE 28.7 MEQ/L (21.0-32.0); BLOOD UREA NITROGEN 8 MG/DL (7-18); CALCIUM 8.2 MG/DL (8.5-10.1); CHLORIDE 102 MEQ/L (98-107); CREATININE 0.61 MG/DL (0.50-1.00); GLOMERULAR FILTRATION RATE 105 ML/MIN (>89); GLUCOSE,RANDOM 79 MG/DL (74-106); SODIUM (NA) 137 MEQ/L (136-145)
[2017-08-15 22:29] LABS: ALKALINE PHOSPHATASE 90 U/L (45-117); TOTAL BILIRUBIN ADULT 0.3 MG/DL (0.2-1.0); TOTAL PROTEIN 6.5 GM/DL (6.4-8.2)
[2017-08-15 22:38] LABS: RHEUMATOID FACTOR SCREEN NEGATIVE (NEGATIVE)
[2017-08-16] VITALS: BP 156/87; PULSE 76; RESP 18; TEMP 98.4; O2SAT 93
[2017-08-16] MEDS: RESP: ALBUTEROL 2.5 MG/IPRATROPIUM 0.5 MG NEB (PRN) NEB ×2 (00:10→16:37)
[2017-08-16] MEDS: HYDROmorphone HCL PF 2 MG/ML VIAL IV PUSH PRN ×5 (00:15→20:44)
[2017-08-16] MEDS: SODIUM CHLORIDE 0.9% FLUSH 10 ML FLUSH IV FLUSH SCH ×2 (00:19→20:56)
[2017-08-16] MEDS: CLINDAMYCIN 150 MG CAP PO SCH ×4 (00:19→18:43)
[2017-08-16] MEDS: HYDROmorphone HCL 4 MG TAB PO PRN ×2 (01:16→04:17)
[2017-08-16] MEDS: PIPERACILLIN/TAZ 3.375 GM VIAL 3.375 GM in SODIUM CHLORIDE 0.9% INJ 100 ML IV SCH ×2 (03:26→12:11)
[2017-08-16] MEDS ORDERED: CHLORHEXIDINE GLUCONATE 2 % 1 PACK (2 CLOTHS) TOPICAL PRN (03:30)
[2017-08-16] MEDS ORDERED: POVIDONE IODINE 5% (ANTISEPSIS KIT) 4 APPLICATIONS EACH NARE PRN (03:30)
[2017-08-16] MEDS ORDERED: SODIUM CHLORID 0.9% 500 ML IV PRN (03:30)
[2017-08-16] MEDS ORDERED: LACTATED RINGER'S 1000 ML IV PRN (03:30)
[2017-08-16] MEDS: LACTATED RINGER'S 1000 ML INJ 1,000 ML IV SCH ×2 (03:32→16:00)
[2017-08-16 04:00] VITALS: BP 140/82; PULSE 79; RESP 18; TEMP 97.7; O2SAT 92
[2017-08-16] MEDS: VANCOMYCIN INJ 900 MG in SODIUM CHLOR 0.9% 250 ML INJ 250 ML IV SCH ×3 (04:22→20:47)
[2017-08-16] MEDS: LORazepam 1 MG TAB PO PRN ×3 (06:32→23:24)
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
[2017-08-16] MEDS ORDERED: BUPIVACAINE HCL PF 0.5% 30 ML VIAL ONE (08:05)
--- NOTE | 2017-08-16 08:11 | HHI.PR ---
Subjective Remarks POD 2 since initial abcess opened drained and packed now in holding to have packing removed and reassessment S Concerned that she still has only dinky peripheral line and is receiving vanco. Does feel mons is less painful. No drainage of significance Saw infectious disease (Dr. Pettit) and psych (Dr. Hernandez) yesterday and their consults appreciated. Objective Vital Signs Vital Signs Date Time Temp Pulse Resp B/P (MAP) Pulse Ox O2 Delivery O2 Flow Rate FiO2 08/16/17 04:00 97.7 79 18 140/82 (101) 92 08/16/17 00:00 98.4 76 18 156/87 (110) 93 08/15/17 20:00 98.3 78 18 162/95 (117) 92 08/15/17 19:34 92 08/15/17 16:52 98.2 82 18 142/85 (104) 94 08/15/17 12:30 97.6 90 18 136/82 (100) 95 I/O 08/15/17 08/15/17 08/15/17 08/16/17 08/16/17 08/16/17 07:00 15:00 23:00 07:00 15:00 23:00 Intake Total 100 ml Balance 100 ml Intake IV Total 100 ml # Voids 1 3 Result Diagram: 08/15/17210908/15/172109 Objective Remarks Chest is clear, regular rate and rhythm. Abdomen is soft and non-distended. mons has diminishing hardness and cellultis culture of abcess is MRSA poor circulation and skin is not healthy A/P Assessment and Plan Post Op Day 2/ day of surgery to remove packing some improvement for acute process noted chronic issues must be addressed or this will contine with increasing frequency and poor outcome. appreciate consults will begin persantin and aspirin after surgery likely also steroids continue antibiotics attempt to find outpatient care for her chronic illnesses Molly Hurt MD Aug 16, 2017 08:11
--- NOTE | 2017-08-16 08:54 | PD.OP ---
Operative Report Date of Surgery: Aug 16, 2017 Preoperative Diagnosis: (1) Opioid dependence in controlled environment (2) Abscess of labia (3) COPD (chronic obstructive pulmonary disease) (4) Livedoid vasculitis (5) Cellulitis (6) Rheumatoid arthritis Postoperative Diagnosis: as above with non viable tissue removed and wound vac placed Procedure: Removal of packing excision non viable tissue placement of wound vac Anesthesia: GET Surgeon: Molly Hurt Mobile Developer(s): OR staff Operation and Findings: Molly Calderon MD Aug 16, 2017 08:54
[2017-08-16] MEDS ORDERED: *RESP: ALBUTEROL 2.5 MG/3 ML NEB (PRN) PERIprocedural Use ONLY NEB ONE (08:55)
[2017-08-16] MEDS ORDERED: *MEPERIDINE 25 MG INJ VIAL PERIprocedural Use ONLY ONE (08:59)
[2017-08-16] MEDS ORDERED: DO NOT ADM ANY ANTICOAGULANT DRUGS PRN (08:59)
[2017-08-16] MEDS ORDERED: *HYDROmorphone PF 1 MG VIAL PERIprocedural Use ONLY ONE (08:59)
[2017-08-16] MEDS ORDERED: ONDANSETRON HCL 4 MG/2 ML VIAL IV PUSH PRN (09:00)
[2017-08-16] MEDS: ALBUTEROL SULFATE 90 MCG/ACT HFA 8 GM INHALER INH SCH ×2 (09:00→22:18)
[2017-08-16] MEDS: BUDESONIDE-FORMOTEROL 80/4.5 MCG INHALER INH SCH ×2 (09:00→22:18)
[2017-08-16] MEDS ORDERED: MIDAZOLAM HCL 2 MG/2 ML VIAL ONE (09:05)
--- NOTE | 2017-08-16 09:10 | HHI.OB ---
Subjective Post Operative Day: 0 Remarks Immediately s/p debridement and wound vac placement review of meds shows 60 mg methylprednisione IV scheduled every 6 hours except when she did not have IV access. Presume highly steroid dependent. Lungs were very compromised per Dr. Hernandez and pulmonary consult recommended Pain management will be difficult with opioid tolerance Risk of VTE of concern. Cannot place sequentials Using persantine and aspirin now--unclear if should have lovenox. back to 5N and anticipate exchange of wound vac in 48 hours. Objective Vitals/I&O Vital Signs Date Time Temp Pulse Resp B/P (MAP) Pulse Ox O2 Delivery O2 Flow Rate FiO2 08/16/17 04:00 97.7 79 18 140/82 (101) 92 08/16/17 00:00 98.4 76 18 156/87 (110) 93 08/15/17 20:00 98.3 78 18 162/95 (117) 92 08/15/17 19:34 92 08/15/17 16:52 98.2 82 18 142/85 (104) 94 08/15/17 12:30 97.6 90 18 136/82 (100) 95 Intake & Output 08/16/17 08/16/17 07:00 19:00 Intake Total 100 ml Balance 100 ml Intake IV Total 100 ml # Voids 3 Result Diagram: 08/15/17210908/15/172109 Objective Remarks GENERAL: Well-nourished, well-developed patient. CARDIOVASCULAR: Regular rate and rhythm without murmurs, gallops, or rubs. RESPIRATORY: Breath sounds equal bilaterally. No accessory muscle use. ABDOMEN/GI: Abdomen soft, non-tender, bowel sounds present. Incision: Clean, dry and intact. Fundus: Firm, non-tender at umbilicus. GENITOURINARY: Light to moderate bleeding. EXTREMITIES: No cyanosis or edema, non-tender, without signs of DVT. Medications and IVs Current Medications Medications (Trade) Dose Ordered Sig/Juanpablo Route Start Time Stop Time Status Last Admin (NS Flush) 2 ml UNSCH PRN IV FLUSH 08/13/17 14:15 (NS Flush) 2 ml BID IV FLUSH 08/13/17 21:00 08/16/17 00:19 (Tylenol) 650 mg Q6H PRN PO 08/13/17 14:15 (Motrin) 600 mg Q4H PRN PO 08/13/17 14:15 (Zofran Inj) 4 mg Q6H PRN IV PUSH 08/13/17 14:15 08/13/17 22:14 (Duoneb Neb) 1 ampule Q6HR NEB PRN NEB 08/13/17 15:00 08/16/17 00:10 (Symbicort 80-4.5 Mcg Inh) 1 puff Q12HR INH 08/13/17 21:00 08/15/17 23:08 (Albuterol Concentrated Neb) 2.5 mg Q6HR NEB PRN NEB 08/13/17 15:00 (Dilaudid) 4 mg Q4H PRN PO 08/13/17 15:00 08/16/17 04:17 Pharmacy Profile Note 0 ml @ 0 mls/hr UNSCH OTHER 08/13/17 18:00 (Dilaudid Pf Inj) 2 mg Q4H PRN IV PUSH 08/13/17 19:15 08/16/17 05:23 (Proair Hfa Inh) 2 puff BID INH 08/14/17 09:00 08/15/17 23:09 Lactated Ringer's 1,000 ml @ 125 mls/hr Q8H IV 08/15/17 00:00 08/16/17 03:32 (Ativan) 1 mg Q6H PRN PO 08/14/17 21:00 08/16/17 06:32 (Persantine) 75 mg Q8HR PO 08/16/17 12:00 (Aspirin) 325 mg DAILY PO 08/16/17 11:00 (Cymbalta Dr) 30 mg DAILY PO 08/15/17 12:00 08/15/17 12:01 Vancomycin HCl 900 mg/Sodium Chloride 259 ml @ 250 mls/hr Q8H IV 08/15/17 20:00 08/16/17 04:22 Piperacillin Sod/ Tazobactam Sod 3.375 gm/Sodium Chloride 100 ml @ 200 mls/hr Q8H IV 08/15/17 18:00 08/16/17 03:26 (Cleocin) 450 mg Q6HR PO 08/15/17 18:15 08/16/17 05:26 Miscellaneous Information SPECIFIC LAB TO BE MARISA... ONCE ONCE .XX 08/16/17 11:45 08/16/17 11:46 Lactated Ringer's 1,000 ml @ 30 mls/hr Q24H PRN IV 08/16/17 03:30 08/19/17 03:29 Sodium Chloride 500 ml @ 30 mls/hr [id number] PRN IV 08/16/17 03:30 08/19/17 03:29 (Betadine 5% Antisepsis Kit) 1 applic SURVEY ASSOCIATE PRN EACH NARE 08/16/17 03:30 08/19/17 03:29 (Chlorhexidine 2% Cloth) 3 pack SURVEY ASSOCIATE PRN TOPICAL 08/16/17 03:30 08/19/17 03:29 (SoluMEDROL INJ) 60 mg Q6H IV PUSH 08/16/17 08:00 (Microzide) 12.5 mg DAILY PO 08/16/17 09:00 Assessment/Plan Assessment and Plan Patient 47-year-old white female with a right labial /vulvar abscess . With a history of steroid use orally for vasculitis and COPD Plan is I&D of abscess after admission CT and initial of 12-24 hours of IV antibiotics would include vancomycin with the knowledge that 75% of these abscesses or MRSA positive 08/15/17/ 10:00 am 1) POD 1 labial abcess drainage and packing. Anticipate removing packing tomorrow. Postponed from today due to lack of IV access and antibiotic administration. May need serial packings under anesthesia 2)Chronic conditions of COPD, RA and peripheral vasculitis not being addressed on outpatient basis. Needs medications renewed and payor source 3) see consults and medications. Molly Hurt MD Aug 16, 2017 09:10
[2017-08-16] MEDS: HYDROmorphone HCL 4 MG TAB PO SCH ×4 (10:25→22:18)
[2017-08-16] MEDS ORDERED: SODIUM CHLORIDE 0.9% FLUSH 10 ML FLUSH IV FLUSH PRN (11:30)
[2017-08-16] MEDS ORDERED: PHARMACY ORDERED LAB ONE (11:45)
--- NOTE | 2017-08-16 11:52 | RADRPT ---
EXAM DATE/TIME: 08/16/2017 11:11 [facility] COMPARISON: CHEST SINGLE AP, July 07, 2017, 0:50. INDICATIONS : PICC line placement. MEDICAL HISTORY : Chronic obstructive pulmonary disease. Cardiovascular disease. SURGICAL HISTORY : None. ENCOUNTER: Initial ACUITY: 1 day PAIN SCORE: 6/10 LOCATION: Bilateral chest FINDINGS: Single AP view of the chest. Right-sided PICC line in place with the tip at the distal SVC. The lungs are clear. Cardiomediastinal silhouette within normal limits. No evidence of pleural effusion or pne umothorax. CONCLUSION: Right PICC line in place. Tip in the distal SVC. No evidence of pneumothorax. Fito Walton MD on August 16, 2017 at 11:49 Board Certified Radiologist. This report was verified electronically.
[2017-08-16 12:00] VITALS: BP 131/76; PULSE 83; RESP 16; TEMP 98.3; O2SAT 94
[2017-08-16] MEDS ORDERED: DEXAMETHASONE SOD PHOS 4 MG/ML VIAL IV ONE (12:00)
[2017-08-16] MEDS ORDERED: ONDANSETRON HCL 4 MG/2 ML VIAL IV ONE (12:00)
[2017-08-16] MEDS ORDERED: LIDOCAINE HCL 1% PF 5 ML SYRINGE OTHER ONE (12:00)
[2017-08-16] MEDS ORDERED: PROPOFOL 200 MG/20 ML AMP IV ONE (12:00)
[2017-08-16] MEDS: DIPYRIDAMOLE 75 MG PO SCH ×2 (12:11→20:47)
[2017-08-16] MEDS: HYDROCHLOROTHIAZIDE 12.5 MG CAP PO SCH (12:12)
[2017-08-16] MEDS: DULoxetine HCl DR 30 MG CAP PO SCH (12:12)
[2017-08-16] MEDS: methylPREDNISolone SOD SUCC 125 MG/2 ML VIAL IV PUSH SCH ×3 (12:22→20:49)
--- NOTE | 2017-08-16 15:55 | MP ---
cc: LEXUS MATHIAS DATE OF SURGERY: 08/16/2017. PREOPERATIVE DIAGNOSIS: 48 hours post incision and drainage of A large labial abscess by a partner with A large amount of packing in place brought to the OR for removal of packing. POSTOPERATIVE DIAGNOSIS: Significant nonviable tissue requiring debridement and placement of a wound VAC. OPERATIVE PROCEDURE PERFORMED: Removal of packing, sharp excision of nonviable tissue with extension of incision and placement of wound VAC. SURGEON: Lexus Mathias MD. BALANCE ASSEMBLER: The OR staff. ANESTHESIA: General. FINDINGS: Examination under anesthesia revealed a decrease in the diffuse cellulitis along the mons pubis compared to the lines drawn by on Thursday. A very discrete hard circumferential area above and below the incision where the tissue was undermined and drained of purulence and packing placed. This required extension of the skin excision, debridement of significant nonvascularized necrotic tissue until viable tissue identified throughout the perimeter of the wound and then placement of a wound VAC with intermittent suction. Bleeding was negligible until viable tissue reached. She tolerated the procedure well but it was apparent she has significant pulmonary disease and should have evaluation of this during this hospitalization. She is difficult to manage from the point of view pain management, pulmonary function, her vasculitis and risk of thromboembolic disease. Her legs do not have healthy skin and sequentials are not appropriate. I have placed her on Persantine and aspirin but it is unclear if I should also have her on Lovenox, and I am seeking a consultation with hospitalists. COUNTS: Sponge, instrument, needle correct. DESCRIPTION OF THE PROCEDURE IN DETAIL: The patient WAS taken to the OR. She was placed under general endotracheal anesthesia in the dorsal lithotomy position. It was noted that her pulse ox was the high 80s low 90s on room air and her lungs had significant disease. She was prepped and draped in the usual sterile fashion. It was confirmed she has minimal pulses in her lower extremities and the skin has poor turgor, is shiny, sloughing in many places and there are areas of old scarring throughout. The labia was as described in findings and it was determined that the incision needed to be extended about 2-3 inches superiorly and then after the packing was removed, the nonviable tissue was excised until bleeding was encountered circumferentially. Then the wound VAC sponge was placed into the cavity in two separate pieces both going vertically. The edges of it were just above the skin edges which were revised and not bleeding. The wound VAC was placed on this sponge with excellent seal for intermittent suction and the wound VAC team will be asked to follow up. She was placed in the dorsal supine position, awakened and taken to recovery in stable condition. She has been receiving IV antibiotics so no preop antibiotics were given. Her bladder had not been emptied and she did not have a Clement. It was noted that she has been on high doses of IV steroids during this hospitalization and gives a history of being steroid dependent. This also needs to be evaluated for the remainder of the hospitalization and transitioned to p.o. I will re-consult the hospitalists. I have sent a new consult to pulmonary. She has been seen by infectious disease and by psychiatric and is now on Cymbalta and p.o. Cipro in addition to her IV Vancomycin and Zosyn. Please note that the culture did come back MRSA but it is sensitive to Vancomycin. I am not sure that she needs the Cipro while in-house, but will defer to infectious disease. It is anticipated that she will return to the operating room in two to three days for removal of the wound VAC, reassessment and likely replacement. Lexus Mathias MD PPC/JCC /9:13 AM /3:10 PM
[2017-08-16 16:00] VITALS: BP 122/72; PULSE 97; RESP 16; TEMP 98; O2SAT 92
--- NOTE | 2017-08-16 16:04 | HHI.IDPN ---
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 She compressed it and it continued to grow, she went to an outside ER yesterday started on clindamycin, however over the past 2-3 days it has significantly increased in size, she feels somewhat systemically ill, denies nausea or vomiting, endorses fever and chills, is able to void spontaneously. She denies any history of labial or vulvar surgery or abscesses , She does trim but does not shave her pubic hair. She has obtained subcutaneous infection needing surgical debridement in the past, she has a chronic vasculitis and has been on steroids on / off, she is currently not using steroids. Of note patients past medical history is significant for Rheumatological disorders with associated vasculitis and she has been on steroids off and on. She has presented with LE ulcers in the past admissions with secondary cellulitis. ID consulted for eval and Mment of labial abscess. Overnight events reviewed No fevers No rash No diarrhea Had surgery this am in labial area and wound vac placed. Pt was not happy about wound vac but when I explained that it will help reduce healing time by suctioning all the purulent infected material she was ok with it. She also had a PICC line placed today. WBC normal. Antibiotics Zosyn IV Vanco IV Clinda oral Lines Line sites with no e.o infection Past Medical History reviewed Allergies: Coded Allergies: No Known Allergies (Verified Adverse Reaction, Unknown, 08/13/17) Objective . Vital Signs Date Time Temp Pulse Resp B/P (MAP) Pulse Ox O2 Delivery O2 Flow Rate FiO2 08/16/17 12:00 98.3 83 16 131/76 (94) 94 08/16/17 09:45 98.8 89 15 141/72 (95) 93 Nasal Cannula 3 08/16/17 09:30 86 15 143/79 (100) 93 Nasal Cannula 3 08/16/17 09:15 87 15 139/77 (97) 93 Nasal Cannula 3 08/16/17 09:00 84 15 145/81 (102) 99 Aerosol Mask 8 08/16/17 08:58 98.0 91 15 144/80 (101) 95 Nasal Cannula 3 08/16/17 04:00 97.7 79 18 140/82 (101) 92 08/16/17 00:00 98.4 76 18 156/87 (110) 93 08/15/17 20:00 98.3 78 18 162/95 (117) 92 08/15/17 19:34 92 08/15/17 16:52 98.2 82 18 142/85 (104) 94 08/16/17 08/16/17 08/17/17 15:00 23:00 07:00 Intake Total 800 ml Output Total 50 ml Balance 750 ml Intake IV Total 400 ml Other 400 ml Estimated Blood Loss 50 ml # Voids 3 . Laboratory Tests Test 08/15/17 21:10 White Blood Count 7.2 TH/MM3 Red Blood Count 4.64 MIL/MM3 Hemoglobin 12.1 GM/DL Hematocrit 37.6 % Mean Corpuscular Volume 81.0 FL Mean Corpuscular Hemoglobin 26.1 PG Mean Corpuscular Hemoglobin Concent 32.2 % Red Cell Distribution Width 16.6 % Platelet Count 194 TH/MM3 Mean Platelet Volume 8.5 FL Neutrophils (%) (Auto) 67.2 % Lymphocytes (%) (Auto) 19.6 % Monocytes (%) (Auto) 7.8 % Eosinophils (%) (Auto) 4.4 % Basophils (%) (Auto) 1.0 % Neutrophils # (Auto) 4.8 TH/MM3 Lymphocytes # (Auto) 1.4 TH/MM3 Monocytes # (Auto) 0.6 TH/MM3 Eosinophils # (Auto) 0.3 TH/MM3 Basophils # (Auto) 0.1 TH/MM3 CBC Comment DIFF FINAL Differential Comment Laboratory Tests Test 08/15/17 21:10 Blood Urea Nitrogen 8 MG/DL Creatinine 0.61 MG/DL Random Glucose 79 MG/DL Total Protein 6.5 GM/DL Albumin 2.8 GM/DL Calcium Level 8.2 MG/DL Alkaline Phosphatase 90 U/L Aspartate Amino Transf (AST/SGOT) 19 U/L Alanine Aminotransferase (ALT/SGPT) 21 U/L Total Bilirubin 0.3 MG/DL Sodium Level 137 MEQ/L Potassium Level 4.5 MEQ/L Chloride Level 102 MEQ/L Carbon Dioxide Level 28.7 MEQ/L Anion Gap 6 MEQ/L Estimat Glomerular Filtration Rate 105 ML/MIN Thyroid Stimulating Hormone 3rd Gen 1.860 uIU/ML Microbiology Date/Time Source Procedure Growth Status 08/14/17 07:10 Abscess Other Fungal Smear - Final NO FUNGAL ELEMENTS SEEN. Resulted 08/14/17 07:10 Abscess Other Fungal Culture Pending Resulted 08/14/17 07:10 Abscess Other Acid Fast Stain - Final NO ACID FAST BACILLI SEEN Resulted 08/14/17 07:10 Abscess Other Mycobacterial Culture Pending Resulted 08/14/17 07:10 Abscess Other Gram Stain - Final Complete 08/14/17 07:10 Wound Culture - Final S. Aureus Mrsa Complete Imaging Last Impressions Chest X-Ray 08/16/17 0000 Signed Impressions: Service Date/Time: Wednesday, August 16, 2017 11:11 - CONCLUSION: Right PICC line in place. Tip in the distal SVC. No evidence of pneumothorax. Fito Walton MD Abdomen/Pelvis CT 08/13/17 1212 Signed Impressions: Service Date/Time: August 14:13 - CONCLUSION: 1. Swelling and inflammatory change involving the labia and perineum. This is greater on the right than the left with no drainable fluid collections or gas. Findings could indicate infection and/or inflammation. 2. Prominence reactive appearing right inguinal lymph nodes. Leo Priest MD Physical Exam GENERAL: This is a well-nourished, well-developed patient, in no apparent distress. SKIN: Cool and dry. HEAD: Atraumatic. Normocephalic. No temporal or scalp tenderness. EYES: Pupils equal round and reactive. Extraocular motions intact. No scleral icterus. No injection or drainage. ENT: Nose without bleeding, purulent drainage or septal hematoma. Throat without erythema, tonsillar hypertrophy or exudate. Uvula midline. Airway patent. NECK: Trachea midline. Supple, nontender, no meningeal signs. CARDIOVASCULAR: HS audible. RESPIRATORY: Clear to auscultation. Breath sounds equal bilaterally. No wheezes , rales, or rhonchi. GASTROINTESTINAL: Abdomen soft, non-tender, nondistended. MUSCULOSKELETAL: Bilateral LE with chronic LE discoloration and vascular changes. NEUROLOGICAL: Awake and alert. Grossly non focal Genital exam: wound vac in place. Psych flat affect IV line sites with no e.o infection. Assessment & Plan Remarks Right labial abscess possible necrotizing fascitis component. Patient has had some drainage at this point. Bilateral labia and mons pubis as well as perineal cellulitis. Vasculitis with chronic painful ulcers. Obesity recs DC Zosyn IV Continue Vanco IV (target 10-15) Continue oral clinda for toxin neutralization effect if necrotizing fascitis for total of 5 days. Follow cultures Follow clinically. Pulm consult for COPD mment. Moira Pettit MD Aug 16, 2017 16:04
[2017-08-16] MEDS: ASPIRIN 325 MG TAB PO SCH (16:28)
--- NOTE | 2017-08-16 17:47 | MB ---
cc: REED MCBRIDE DATE OF CONSULTATION 08/16/2017 REASON FOR CONSULTATION COPD exacerbation. HISTORY OF PRESENT ILLNESS Mrs. Scruggs is a 47-year-old female who was admitted with a vulvar abscess surgically treated. Today complains of some discomfort at surgical site. She does have COPD and/or bronchial asthma on bronchodilator therapy. She does receive steroids intermittently. She tells me she takes about 20 mg a day on as needed basis for her COPD, asthma exacerbation when at home or if her vasculitis flares up. At present she has no fever or chills. Her main issue at this point is the discomfort at the surgical site which was done today. PAST MEDICAL HISTORY Her past medical history is: 1. COPD. 2. Bronchial asthma. 3. Vasculitis on intermittent steroid therapy as mentioned above. She has no well shooter for which she is following at this point. 4. She had a in the past. MEDICATIONS Prior to hospitalization included: 1. Clindamycin. 2. She has Symbicort twice daily. 3. Proventil p.r.n. 4. DuoNeb p.r.n. 5. Aspirin once a day. 6. Prednisone on as-needed basis. She tells me she has not used any prednisone in the last week or so prior to her hospitalization. FAMILY HISTORY Noncontributory. REVIEW OF SYSTEMS 12-point review of systems as per HPI and past history otherwise negative. PHYSICAL EXAMINATION GENERAL: She is alert. VITAL SIGNS: Temperature 98 degrees Fahrenheit, pulse 84, respirations 18, blood pressure 130/70. Oxygen saturation 94% on 3 liters oxygen nasal cannula. HEENT: Exam unremarkable. Eyes are without icterus. NECK: Without adenopathy. Thyroid enlargement. Central trachea. CHEST: Few scattered rhonchi at bases. CARDIOVASCULAR: Exam PMI distant. S1-S2 audible. No murmur or rub. ABDOMEN: Lax. Audible bowel sounds. EXTREMITIES: No clubbing, cyanosis or edema. SKIN: Normal. No lymphadenopathy. IMAGING Chest x-ray without acute abnormality. LABORATORY DATA White count 7.2, hemoglobin 12, hematocrit 37, platelets 194,000 done August 15, 2017. Sodium 137, potassium 4.5, BUN 8, creatinine 0.6 done at the same date. Her INR on 08/13 was normal at 1.0. IMPRESSION 1. COPD and exacerbation improving. 2. Status post incision and drainage of the labial abscess. 3. Vasculitis. PLAN The patient's oxygen saturation on room air is adequate at present. She does have intermittent chest wheeze. Would continue her bronchodilator therapy. Her steroids need to be gradually tapered 40 mg daily would be adequate at present. We will follow her course along with you and depending on progress proceed further. Bronchodilators will be maintained. I do thank you for asking me to partake in Mrs. Scruggs's care. Reed Mcbride MD WWW/CORTES /4:27 PM /5:27 PM
[2017-08-16 19:41] VITALS: O2SAT 95
[2017-08-16 20:00] VITALS: BP 118/70; PULSE 94; RESP 20; TEMP 97; O2SAT 92
[2017-08-16] MEDS: LACTOBACILLUS ACIDOPHILUS TAB PO SCH (20:47)
[2017-08-17] VITALS (7 sets, daily range): BP systolic 123–139; BP diastolic 62–85; PULSE 81–99; RESP 18; TEMP 97.7–98.5; O2SAT 91–94
[2017-08-17] MEDS: CLINDAMYCIN 150 MG CAP PO SCH ×4 (01:04→18:09)
[2017-08-17] MEDS: methylPREDNISolone SOD SUCC 125 MG/2 ML VIAL IV PUSH SCH ×2 (01:04→09:10)
[2017-08-17] MEDS: HYDROmorphone HCL PF 2 MG/ML VIAL IV PUSH PRN ×6 (01:04→22:53)
[2017-08-17] MEDS: HYDROmorphone HCL 4 MG TAB PO SCH ×6 (02:12→20:52)
[2017-08-17] MEDS: DIPYRIDAMOLE 75 MG PO SCH ×3 (05:48→20:47)
[2017-08-17] MEDS: VANCOMYCIN INJ 900 MG in SODIUM CHLOR 0.9% 250 ML INJ 250 ML IV SCH ×3 (05:51→20:46)
[2017-08-17 07:58] LABS: AUTOMATED NEUTROPHIL # 8.4 TH/MM3 (1.8-7.7); BASOPHIL % 0.2 % (0.0-2.0); HEMATOCRIT 35.4 % (35.0-46.0); HEMOGLOBIN 11.6 GM/DL (11.6-15.3); LYMPH % 6.4 % (9.0-44.0); LYMPHOCYTE # 0.6 TH/MM3 (1.0-4.8); MEAN CELL VOLUME 79.6 FL (80.0-100.0); MEAN CORPUSCULAR HEMOGLOBIN 26.2 PG (27.0-34.0); MEAN CORPUSCULAR HGB CONC 32.9 % (32.0-36.0); MEAN PLATELET VOLUME 8.6 FL (7.0-11.0); MONO % 4.3 % (0.0-8.0); MONOCYTE # 0.4 TH/MM3 (0-0.9); NEUT % 89.1 % (16.0-70.0); PLATELET COUNT 245 TH/MM3 (150-450); RED BLOOD COUNT 4.44 MIL/MM3 (4.00-5.30); RED CELL DISTRIBUTION WIDTH 16.5 % (11.6-17.2); WHITE BLOOD COUNT 9.5 TH/MM3 (4.0-11.0)
[2017-08-17] MEDS: LACTATED RINGER'S 1000 ML INJ 1,000 ML IV SCH ×2 (08:00)
[2017-08-17 08:05] LABS: BICARBONATE 31.3 MEQ/L (21.0-32.0); CALCIUM 8.7 MG/DL (8.5-10.1); CREATININE 0.66 MG/DL (0.50-1.00)
--- NOTE | 2017-08-17 08:30 | HHI.PR ---
Subjective Remarks POD 1 s/p placement of wound vac to right labial defect debrided of non viable tissue yesterday morning This morning resting comfortably. Upset with events but understands necessity. Pain controlled. Appetite good. No chills or fever. Notes great improvement in legs because of reset and steroids. Not aware of any other lesions developing elsewhere Objective Vital Signs Vital Signs Date Time Temp Pulse Resp B/P (MAP) Pulse Ox O2 Delivery O2 Flow Rate FiO2 08/17/17 08:19 98.5 85 18 123/62 (82) 92 08/17/17 00:00 97 124/85 (98) 08/16/17 20:00 97.0 94 20 118/70 (86) 92 08/16/17 19:41 95 08/16/17 16:00 98.0 97 16 122/72 (89) 92 08/16/17 12:00 98.3 83 16 131/76 (94) 94 08/16/17 09:45 98.8 89 15 141/72 (95) 93 Nasal Cannula 3 08/16/17 09:30 86 15 143/79 (100) 93 Nasal Cannula 3 08/16/17 09:15 87 15 139/77 (97) 93 Nasal Cannula 3 08/16/17 09:00 84 15 145/81 (102) 99 Aerosol Mask 8 08/16/17 08:58 98.0 91 15 144/80 (101) 95 Nasal Cannula 3 I/O 08/16/17 08/16/17 08/16/17 08/17/17 08/17/17 08/17/17 07:00 15:00 23:00 07:00 15:00 23:00 Intake Total 800 ml Output Total 50 ml Balance 750 ml Intake IV Total 400 ml Other 400 ml Estimated Blood Loss 50 ml # Voids 3 6 Result Diagram: 08/17/17 0600 08/17/17 0600 Objective Remarks Chest rales and rhonci and end exp wheezes with productive cough Abdomen is soft and non-distended. mons has markedly improved skin and tissue with woodiness that was encompassing entire right labia toward mons, now resolved. culture of abcess is MRSA on isoloation extremities stable A/P Assessment and Plan Post Op Day 2/ day of surgery to remove packing some improvement for acute process noted chronic issues must be addressed or this will contine with increasing frequency and poor outcome. appreciate consults will begin persantin and aspirin after surgery likely also steroids continue antibiotics attempt to find outpatient care for her chronic illnesses POD 3/POD 1 huge improvement with debridement and wound vac. Hoping no more nonviable tissue occurs and no more debridement will be needed. Not likely that changes will be tolerated at beside but will look to wound vac team to assist in decision making. [facility]PAS and consultants will help with her medical issues of steroids, antibiotics , lung status. Case management putting her in touch with Thomas Banerjee to move quickly on disability which is obviously indicated. I will write letter to him once retained. 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 [phone] Molly Hurt MD Aug 17, 2017 08:30
[2017-08-17] MEDS: SODIUM CHLORIDE 0.9% FLUSH 10 ML FLUSH IV FLUSH SCH ×3 (09:00→20:52)
[2017-08-17] MEDS: HYDROCHLOROTHIAZIDE 12.5 MG CAP PO SCH (09:08)
[2017-08-17] MEDS: DULoxetine HCl DR 30 MG CAP PO SCH (09:08)
[2017-08-17] MEDS: ASPIRIN 325 MG TAB PO SCH (09:09)
[2017-08-17] MEDS: LACTOBACILLUS ACIDOPHILUS TAB PO SCH ×2 (09:09→20:51)
[2017-08-17] MEDS: ALBUTEROL SULFATE 90 MCG/ACT HFA 8 GM INHALER INH SCH ×4 (09:17→20:53)
[2017-08-17] MEDS: BUDESONIDE-FORMOTEROL 80/4.5 MCG INHALER INH SCH ×2 (09:17→20:53)
--- NOTE | 2017-08-17 09:33 | HHI.PR ---
Subjective Remarks Patient seen and examined this am. Vitals are stable and she is afebrile. S/P debridement with wound vac, with already signs of healing. Pain is well controlled. She feels better, breathing better. Objective Vital Signs Date Time Temp Pulse Resp B/P (MAP) Pulse Ox O2 Delivery O2 Flow Rate FiO2 08/17/17 08:19 98.5 85 18 123/62 (82) 92 08/17/17 00:00 97 124/85 (98) 08/16/17 20:00 97.0 94 20 118/70 (86) 92 08/16/17 19:41 95 08/16/17 16:00 98.0 97 16 122/72 (89) 92 08/16/17 12:00 98.3 83 16 131/76 (94) 94 08/16/17 09:45 98.8 89 15 141/72 (95) 93 Nasal Cannula 3 08/16/17 09:30 86 15 143/79 (100) 93 Nasal Cannula 3 I/O 08/16/17 08/16/17 08/16/17 08/17/17 08/17/17 08/17/17 07:00 15:00 23:00 07:00 15:00 23:00 Intake Total 800 ml 259 ml 259 ml Output Total 50 ml Balance 750 ml 259 ml 259 ml Intake IV Total 400 ml 259 ml 259 ml Other 400 ml Estimated Blood Loss 50 ml # Voids 3 6 Result Diagram: 08/17/17 0600 08/17/17 0600 Imaging Last Impressions Chest X-Ray 08/16/17 0000 Signed Impressions: Service Date/Time: Wednesday, August 16, 2017 11:11 - CONCLUSION: Right PICC line in place. Tip in the distal SVC. No evidence of pneumothorax. Fito Walton MD Abdomen/Pelvis CT 08/13/17 1212 Signed Impressions: Service Date/Time: August 14:13 - CONCLUSION: 1. Swelling and inflammatory change involving the labia and perineum. This is greater on the right than the left with no drainable fluid collections or gas. Findings could indicate infection and/or inflammation. 2. Prominence reactive appearing right inguinal lymph nodes. Leo Priest MD Objective Remarks GENERAL: This is a well-nourished, well-developed patient, SKIN: Cool and dry. HEAD: Atraumatic. Normocephalic. No temporal or scalp tenderness. EYES: Pupils equal round and reactive. Extraocular motions intact. No scleral icterus. No injection or drainage. ENT: Nose without bleeding, purulent drainage or septal hematoma. NECK: Trachea midline. CARDIOVASCULAR: Regular rate and rhythm without murmurs, gallops, or rubs. RESPIRATORY: Bilateral expiratory wheezing, no rales, no increased work of breathing, +dry cough GASTROINTESTINAL: Abdomen soft, non-tender, nondistended. No hepato-splenomegaly , or palpable masses. No guarding. : wound vac in place, serous sanguinous drainage MUSCULOSKELETAL: No calf tenderness. NEUROLOGICAL: Awake and alert. Motor and sensory grossly within normal limits. Normal speech. A/P Problem List: (1) Depression ICD Code: F32.9 - Major depressive disorder, single episode, unspecified (2) HTN (hypertension) ICD Code: I10 - Essential (primary) hypertension (3) Rheumatoid arthritis ICD Code: M06.9 - Rheumatoid arthritis, unspecified Status: Chronic (4) COPD with acute exacerbation ICD Code: J44.1 - Chronic obstructive pulmonary disease with (acute) exacerbation Status: Acute (5) Abscess of labia ICD Code: N76.4 - Abscess of vulva Assessment and Plan 47-year-old female with autoimmune disease presenting with failed outpatient treatment for vulvar abscess Vulvar abscess and necrotizing fasciitis - Postop day 3/1 status post placement of wound VAC right labial defect, debridement of nonviable tissue - blood cultures negative x 2 days, abscess +MRSA - Seen and evaluated by ID: DC Zosyn IV, continue Vanc, continue oral Clinda for 08/16 (total 5 days) necrotizing fasciitis. - pain meds per primary COPD - CXR normal/no acute disease - continue abx as above - add IV steroids solumedrol 40 mg IV daily - resp incentive spirometer - duonebs and albuterol alternating - Pulmonology following okay with the above Rheumatological Disease - she is on steroids above for her COPD - this can be further worked up as an outpatient Anxiety/Depression - seen and evaluated by psych - Duloxetine 30 mg daily (can be titrated up to 20 mg BID) as clinically indicated - control pain - can be followed up further as an outpatient, CM to assist with resources HTN -Controlled -Stable on HCTZ 12.5 mg daily and titrate up as needed Discharge Planning Patient with wound VAC, no insurance case management to assist Padmini Ann MD Aug 17, 2017 09:33
[2017-08-17] MEDS: LORazepam 1 MG TAB PO PRN ×2 (10:43→18:09)
[2017-08-17] MEDS: RESP: ALBUTEROL 2.5 MG/IPRATROPIUM 0.5 MG NEB (PRN) NEB (10:53)
--- NOTE | 2017-08-17 15:38 | HHI.PR ---
Subjective Remarks Pain is improving but still uncomfortable. able to void, no n/v. cough and some dyspnea, no chest pain. Objective Vital Signs Vital Signs Date Time Temp Pulse Resp B/P (MAP) Pulse Ox O2 Delivery O2 Flow Rate FiO2 08/17/17 12:26 98.2 99 18 133/66 (88) 91 08/17/17 09:42 92 08/17/17 08:19 98.5 85 18 123/62 (82) 92 08/17/17 00:00 97 124/85 (98) 08/16/17 20:00 97.0 94 20 118/70 (86) 92 08/16/17 19:41 95 08/16/17 16:00 98.0 97 16 122/72 (89) 92 I/O 08/16/17 08/16/17 08/16/17 08/17/17 08/17/17 08/17/17 07:00 15:00 23:00 07:00 15:00 23:00 Intake Total 800 ml 259 ml 259 ml Output Total 50 ml Balance 750 ml 259 ml 259 ml Intake IV Total 400 ml 259 ml 259 ml Other 400 ml Estimated Blood Loss 50 ml # Voids 3 6 Result Diagram: 08/17/17 0600 08/17/17 0600 Objective Remarks Chest rales and rhonci and end exp wheezes with productive cough Abdomen is soft and non-distended. Erythema overlying mons, outside of markerd area, Induration improved, tender to palpation. extremities stable A/P Assessment and Plan 1. Vulvar abscess / cellulitis / MRSA + Wound culture: POD 3/POD1 I&D packing / debridement and wound vac application respectively. 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 - Continue IV Vanc (goal 10-15) and PO clinda, consider transitioning to PO abx later in week with continued improvement. ID following and may advise. - ALY PICC (08/17/17), CXR confirmed correct placement. - Dispo: OR tomorrow AM for wound vac change, hopefully change vac at bedside this and then able to d/c home if home health arranged. some improvement for acute process noted 2. Vasculitis / MDD / HTN / Chronic pain : continue current meds, HEPAS following along, appreciate recs / assistance, CM to assist with outpt follow up resources. - pt followed by Dr. Ron in [place] for chronic pain. 3. COPD: IV steroids will need PO taper later, continue current bronchodilator regimen. - Normal CXR. 4. Social: poor living situation, needs disability to help arrange medicaid, CM assisting and my partner provided auto fleet manager contact info to pt. appreciate consults Jon Goetz MD Aug 17, 2017 15:38
[2017-08-17] MEDS: RESP: ALBUTEROL 2.5 MG/IPRATROPIUM 0.5 MG NEB (SCH) NEB ×2 (15:58→20:44)
--- NOTE | 2017-08-17 17:11 | HHI.PR ---
Subjective Remarks alert still congested no acute distress Objective GENERAL: SKIN: Warm and dry. HEAD: Atraumatic. Normocephalic. EYES: Pupils equal and round. No scleral icterus. No injection or drainage. ENT: No nasal bleeding or discharge. Mucous membranes pink and moist. NECK: Trachea midline. No JVD. CARDIOVASCULAR: Regular rate and rhythm. RESPIRATORY: No accessory muscle use. scattered ronchi. GASTROINTESTINAL: Abdomen soft, non-tender, nondistended. Hepatic and splenic margins not palpable. MUSCULOSKELETAL: Extremities without clubbing, cyanosis, or edema. No obvious deformities. NEUROLOGICAL: Awake and alert. No obvious cranial nerve deficits. Motor grossly within normal limits. Five out of 5 muscle strength in the arms and legs. Normal speech. PSYCHIATRIC: Appropriate mood and affect; insight and judgment normal. Vital Signs Date Time Temp Pulse Resp B/P (MAP) Pulse Ox O2 Delivery O2 Flow Rate FiO2 08/17/17 15:59 92 08/17/17 12:26 98.2 99 18 133/66 (88) 91 08/17/17 09:42 92 08/17/17 08:19 98.5 85 18 123/62 (82) 92 08/17/17 00:00 97 124/85 (98) 08/16/17 20:00 97.0 94 20 118/70 (86) 92 08/16/17 19:41 95 I/O 08/16/17 08/16/17 08/16/17 08/17/17 08/17/17 08/17/17 06:59 14:59 22:59 06:59 14:59 22:59 Intake Total 800 ml 259 ml 259 ml 259 ml Output Total 50 ml Balance 750 ml 259 ml 259 ml 259 ml Intake IV Total 400 ml 259 ml 259 ml 259 ml Other 400 ml Estimated Blood Loss 50 ml # Voids 3 6 Result Diagram: 08/17/17 0600 08/17/17 0600 Assessment and Plan Assessment and Plan ass copd/asthma plan continue bronchodilators increase activity Reed Mcbride MD Aug 17, 2017 17:11
--- NOTE | 2017-08-17 18:15 | HHI.IDPN ---
Subjective Subjective Remarks 47 y/o CF who presents to the emergency department today with worsening development of her labial abscess.She reports she first appreciated it few days [employer] as a small nodule. She compressed it and it continued to grow, she went to an outside ER yesterday started on clindamycin, however over the past 2-3 days it has significantly increased in size, she feels somewhat systemically ill, denies nausea or vomiting, endorses fever and chills, is able to void spontaneously. She denies any history of labial or vulvar surgery or abscesses , She does trim but does not shave her pubic hair. She has obtained subcutaneous infection needing surgical debridement in the past, she has a chronic vasculitis and has been on steroids on / off, she is currently not using steroids. Of note patients past medical history is significant for Rheumatological disorders with associated vasculitis and she has been on steroids off and on. She has presented with LE ulcers in the past admissions with secondary cellulitis. ID consulted for eval and Mment of labial abscess. Overnight events reviewed No fevers No rash No diarrhea Appears more comfortable today. Antibiotics Zosyn IV Vanco IV Clinda oral Lines Line sites with no e.o infection Past Medical History reviewed Allergies: Coded Allergies: No Known Allergies (Verified Adverse Reaction, Unknown, 08/13/17) Objective . Vital Signs Date Time Temp Pulse Resp B/P (MAP) Pulse Ox O2 Delivery O2 Flow Rate FiO2 08/17/17 16:30 98.1 85 18 139/79 (99) 92 08/17/17 15:59 92 08/17/17 12:26 98.2 99 18 133/66 (88) 91 08/17/17 09:42 92 08/17/17 08:19 98.5 85 18 123/62 (82) 92 08/17/17 00:00 97 124/85 (98) 08/16/17 20:00 97.0 94 20 118/70 (86) 92 08/16/17 19:41 95 08/17/17 08/17/17 08/18/17 15:00 23:00 07:00 Intake Total 259 ml Balance 259 ml Intake IV Total 259 ml . Laboratory Tests Test 08/15/17 21:10 08/17/17 06:00 White Blood Count 7.2 TH/MM3 9.5 TH/MM3 Red Blood Count 4.64 MIL/MM3 4.44 MIL/MM3 Hemoglobin 12.1 GM/DL 11.6 GM/DL Hematocrit 37.6 % 35.4 % Mean Corpuscular Volume 81.0 FL 79.6 FL Mean Corpuscular Hemoglobin 26.1 PG 26.2 PG Mean Corpuscular Hemoglobin Concent 32.2 % 32.9 % Red Cell Distribution Width 16.6 % 16.5 % Platelet Count 194 TH/MM3 245 TH/MM3 Mean Platelet Volume 8.5 FL 8.6 FL Neutrophils (%) (Auto) 67.2 % 89.1 % Lymphocytes (%) (Auto) 19.6 % 6.4 % Monocytes (%) (Auto) 7.8 % 4.3 % Eosinophils (%) (Auto) 4.4 % 0.0 % Basophils (%) (Auto) 1.0 % 0.2 % Neutrophils # (Auto) 4.8 TH/MM3 8.4 TH/MM3 Lymphocytes # (Auto) 1.4 TH/MM3 0.6 TH/MM3 Monocytes # (Auto) 0.6 TH/MM3 0.4 TH/MM3 Eosinophils # (Auto) 0.3 TH/MM3 0.0 TH/MM3 Basophils # (Auto) 0.1 TH/MM3 0.0 TH/MM3 CBC Comment DIFF FINAL DIFF FINAL Differential Comment Laboratory Tests Test 08/15/17 21:10 08/17/17 06:00 Blood Urea Nitrogen 8 MG/DL 12 MG/DL Creatinine 0.61 MG/DL 0.66 MG/DL Random Glucose 79 MG/DL 138 MG/DL Total Protein 6.5 GM/DL Albumin 2.8 GM/DL Calcium Level 8.2 MG/DL 8.7 MG/DL Alkaline Phosphatase 90 U/L Aspartate Amino Transf (AST/SGOT) 19 U/L Alanine Aminotransferase (ALT/SGPT) 21 U/L Total Bilirubin 0.3 MG/DL Sodium Level 137 MEQ/L 136 MEQ/L Potassium Level 4.5 MEQ/L 4.2 MEQ/L Chloride Level 102 MEQ/L 99 MEQ/L Carbon Dioxide Level 28.7 MEQ/L 31.3 MEQ/L Anion Gap 6 MEQ/L 6 MEQ/L Estimat Glomerular Filtration Rate 105 ML/MIN 96 ML/MIN Thyroid Stimulating Hormone 3rd Gen 1.860 uIU/ML Imaging Last Impressions Chest X-Ray 08/16/17 0000 Signed Impressions: Service Date/Time: Wednesday, August 16, 2017 11:11 - CONCLUSION: Right PICC line in place. Tip in the distal SVC. No evidence of pneumothorax. Fito Walton MD Abdomen/Pelvis CT 08/13/17 1212 Signed Impressions: Service Date/Time: August 14:13 - CONCLUSION: 1. Swelling and inflammatory change involving the labia and perineum. This is greater on the right than the left with no drainable fluid collections or gas. Findings could indicate infection and/or inflammation. 2. Prominence reactive appearing right inguinal lymph nodes. Leo Priest MD Physical Exam GENERAL: This is a well-nourished, well-developed patient, in no apparent distress. SKIN: Cool and dry. HEAD: Atraumatic. Normocephalic. No temporal or scalp tenderness. EYES: Pupils equal round and reactive. Extraocular motions intact. No scleral icterus. No injection or drainage. ENT: Nose without bleeding, purulent drainage or septal hematoma. Throat without erythema, tonsillar hypertrophy or exudate. Uvula midline. Airway patent. NECK: Trachea midline. Supple, nontender, no meningeal signs. CARDIOVASCULAR: HS audible. RESPIRATORY: Clear to auscultation. Breath sounds equal bilaterally. No wheezes , rales, or rhonchi. GASTROINTESTINAL: Abdomen soft, non-tender, nondistended. MUSCULOSKELETAL: Bilateral LE with chronic LE discoloration and vascular changes. NEUROLOGICAL: Awake and alert. Grossly non focal Genital exam: wound vac in place. Surrounding erythema now much improved and reduced. Psych smiled today . IV line sites with no e.o infection. Assessment & Plan Remarks Right labial abscess possible necrotizing fascitis component. Patient has had some drainage at this point. Bilateral labia and mons pubis as well as perineal cellulitis. Vasculitis with chronic painful ulcers. Obesity recs Continue Vanco IV (target 10-15) Continue oral clinda for toxin neutralization effect if necrotizing fascitis for total of 5 days. Follow cultures Follow clinically. Pulm consult for COPD mment. Moira Pettit MD Aug 17, 2017 18:15
[2017-08-18] VITALS (7 sets, daily range): BP systolic 114–133; BP diastolic 56–77; PULSE 74–91; RESP 18–20; TEMP 97.6–98.3; O2SAT 94–95
[2017-08-18] MEDS: HYDROmorphone HCL 4 MG TAB PO SCH ×6 (00:34→20:15)
[2017-08-18] MEDS: LORazepam 1 MG TAB PO PRN ×3 (00:34→22:04)
[2017-08-18] MEDS: CLINDAMYCIN 150 MG CAP PO SCH ×4 (00:34→17:58)
[2017-08-18] MEDS: HYDROmorphone HCL PF 2 MG/ML VIAL IV PUSH PRN ×4 (02:48→22:04)
[2017-08-18] MEDS: RESP: ALBUTEROL 2.5 MG/IPRATROPIUM 0.5 MG NEB (SCH) NEB ×4 (02:58→22:07)
[2017-08-18] MEDS ORDERED: POVIDONE IODINE 5% (ANTISEPSIS KIT) 4 APPLICATIONS EACH NARE PRN (03:00)
[2017-08-18] MEDS ORDERED: LACTATED RINGER'S 1000 ML IV PRN (03:00)
[2017-08-18] MEDS ORDERED: CHLORHEXIDINE GLUCONATE 2 % 1 PACK (2 CLOTHS) TOPICAL PRN (03:00)
[2017-08-18] MEDS: VANCOMYCIN INJ 900 MG in SODIUM CHLOR 0.9% 250 ML INJ 250 ML IV SCH ×3 (04:58→20:52)
[2017-08-18 05:30] LABS: BASOPHIL % 0.3 % (0.0-2.0); EOSINOPHIL % 0.4 % (0.0-4.0); HEMATOCRIT 35.8 % (35.0-46.0); HEMOGLOBIN 11.4 GM/DL (11.6-15.3); LYMPH % 11.1 % (9.0-44.0); LYMPHOCYTE # 1.2 TH/MM3 (1.0-4.8); MEAN CELL VOLUME 80.4 FL (80.0-100.0); MEAN CORPUSCULAR HEMOGLOBIN 25.6 PG (27.0-34.0); MEAN CORPUSCULAR HGB CONC 31.9 % (32.0-36.0); MEAN PLATELET VOLUME 8.1 FL (7.0-11.0); MONO % 7.7 % (0.0-8.0); MONOCYTE # 0.9 TH/MM3 (0-0.9); NEUT % 80.5 % (16.0-70.0); PLATELET COUNT 239 TH/MM3 (150-450); RED BLOOD COUNT 4.46 MIL/MM3 (4.00-5.30); RED CELL DISTRIBUTION WIDTH 16.6 % (11.6-17.2); WHITE BLOOD COUNT 11.1 TH/MM3 (4.0-11.0)
[2017-08-18 05:56] LABS: BICARBONATE 33.1 MEQ/L (21.0-32.0); CALCIUM 8.3 MG/DL (8.5-10.1); CREATININE 0.61 MG/DL (0.50-1.00)
[2017-08-18] MEDS: ALBUTEROL SULFATE 90 MCG/ACT HFA 8 GM INHALER INH SCH ×3 (06:00→16:45)
[2017-08-18] MEDS: DIPYRIDAMOLE 75 MG PO SCH ×3 (06:00→20:15)
[2017-08-18] MEDS ORDERED: ACETAMINOPHEN 1000 MG/100 ML 100 ML IV ONE (07:19)
--- NOTE | 2017-08-18 07:41 | HHI.PR ---
Subjective Remarks seen pt in pre op, tired, did not sleep much, status not much change from yesterday. Objective Vital Signs Vital Signs Date Time Temp Pulse Resp B/P (MAP) Pulse Ox O2 Delivery O2 Flow Rate FiO2 08/18/17 05:26 97.7 87 18 119/56 (77) 95 08/18/17 03:00 95 08/18/17 00:40 98.3 91 18 116/59 (78) 95 08/17/17 21:09 97.7 81 18 125/67 (86) 94 08/17/17 16:30 98.1 85 18 139/79 (99) 92 08/17/17 15:59 92 08/17/17 12:26 98.2 99 18 133/66 (88) 91 08/17/17 09:42 92 08/17/17 08:19 98.5 85 18 123/62 (82) 92 I/O 08/17/17 08/17/17 08/17/17 08/18/17 08/18/17 08/18/17 07:00 15:00 23:00 07:00 15:00 23:00 Intake Total 259 ml 259 ml 720 ml 255 ml Balance 259 ml 259 ml 720 ml 255 ml Intake Oral 720 ml IV Total 259 ml 259 ml 255 ml # Voids 6 3 Result Diagram: 08/18/17 0500 08/18/17 0500 Objective Remarks Abdomen is soft and non-distended. Erythema overlying mons, marked today in OR, induration unchanged from original marking from 08/16. extremities stable A/P Assessment and Plan 1. Vulvar abscess / cellulitis / MRSA + Wound culture: POD 4/POD 2 I&D packing / debridement and wound vac application respectively. - WBC elevated this AM, likely related to steroids, will be able to determine success tx based on clinical improvement of wound and pt pain, continue to be afebrile. - Continue IV Vanc (goal 10-15) and PO clinda, consider transitioning to PO abx later in week with continued improvement. ID following and may advise. - HUMBLEE PICC (08/17/17), CXR confirmed correct placement. - Dispo: To OR this AM, see dictated operative report. #[id number], hopefully tolerate wound vac change at bedside on . Home health papers filled out for wound vac changes. 2. Vasculitis / MDD / HTN / Chronic pain : continue current meds, HEPAS following along, appreciate recs / assistance, CM to assist with outpt follow up resources. - pt followed by Dr. Ron in [place] for chronic pain. 3. COPD: IV steroids will need PO taper later, continue current bronchodilator regimen. - Normal CXR. 4. Social: poor living situation, needs disability to help arrange medicaid, CM assisting and my partner provided health care attorney contact info to pt. appreciate consults BRIEF Op report findings: wound 8cm (L) x 2cm (W) x 3cm (D). 2 wound vac sponges placed. erythema over mons seems to be stable from yesterday and induration w/o much improvement yet. Jon Goetz MD Aug 18, 2017 07:41
[2017-08-18] MEDS ORDERED: DO NOT ADM ANY ANTICOAGULANT DRUGS PRN (07:42)
[2017-08-18] MEDS ORDERED: MIDAZOLAM HCL 2 MG/2 ML VIAL ONE (07:54)
--- NOTE | 2017-08-18 08:05 | HHI.FF ---
Face to Face Verification Diagnosis: (1) Abscess of labia Home Health Nursing Order: Wound care and dressing changes (wound vac change 3x per week. ) Instructions: wound dimensions 8 cm long, 2 cm wide, 3 cm deep. During inpatient stay as needed a medium sponge and usually required two sponges to fill cavity. Set wound VAC settings to 125 mmHg, change wound vac 3 times a week. I have seen patient Elizabeth Scruggs on 08/18/17. My clinical findings support the need for the requested home health care services because: Infection w/ risk of complications does not need homebound Hx COPD- exertion dyspnea/weakness wound dimensions 8 cm long, 2 cm wide, 3 cm deep. During inpatient stay as needed a medium sponge and usually required two sponges to fill cavity. Set wound VAC settings to 125 mmHg, change wound vac 3 times a week. Jon Goetz MD Aug 18, 2017 08:05
--- NOTE | 2017-08-18 08:37 | HHI.PR ---
Subjective Remarks alert still congested no acute distress Objective Vital Signs Date Time Temp Pulse Resp B/P (MAP) Pulse Ox O2 Delivery O2 Flow Rate FiO2 08/18/17 08:15 98.6 84 13 119/62 (81) 94 Nasal Cannula 2 08/18/17 08:00 83 17 112/59 (76) 94 08/18/17 07:45 88 14 112/57 (75) 91 08/18/17 07:43 98.6 87 14 112/58 (76) 93 Nasal Cannula 2 08/18/17 05:26 97.7 87 18 119/56 (77) 95 08/18/17 03:00 95 08/18/17 00:40 98.3 91 18 116/59 (78) 95 08/17/17 21:09 97.7 81 18 125/67 (86) 94 08/17/17 16:30 98.1 85 18 139/79 (99) 92 08/17/17 15:59 92 08/17/17 12:26 98.2 99 18 133/66 (88) 91 08/17/17 09:42 92 I/O 08/17/17 08/17/17 08/17/17 08/18/17 08/18/17 08/18/17 07:00 15:00 23:00 07:00 15:00 23:00 Intake Total 259 ml 259 ml 720 ml 255 ml 500 ml Output Total 5 ml Balance 259 ml 259 ml 720 ml 255 ml 495 ml Intake Oral 720 ml IV Total 259 ml 259 ml 255 ml 500 ml Estimated Blood Loss 5 ml # Voids 6 3 Result Diagram: 08/18/17 0500 08/18/17 0500 Assessment and Plan Assessment and Plan ass copd/asthma plan continue bronchodilators increase activity Discharge Planning GENERAL: SKIN: Warm and dry. HEAD: Atraumatic. Normocephalic. EYES: Pupils equal and round. No scleral icterus. No injection or drainage. ENT: No nasal bleeding or discharge. Mucous membranes pink and moist. NECK: Trachea midline. No JVD. CARDIOVASCULAR: Regular rate and rhythm. RESPIRATORY: No accessory muscle use. Clear to auscultation. Breath sounds equal bilaterally. GASTROINTESTINAL: Abdomen soft, non-tender, nondistended. Hepatic and splenic margins not palpable. MUSCULOSKELETAL: Extremities without clubbing, cyanosis, or edema. No obvious deformities. NEUROLOGICAL: Awake and alert. No obvious cranial nerve deficits. Motor grossly within normal limits. Five out of 5 muscle strength in the arms and legs. Normal speech. PSYCHIATRIC: Appropriate mood and affect; insight and judgment normal. Reed Mcbride MD Aug 18, 2017 08:37
[2017-08-18] MEDS: SODIUM CHLORIDE 0.9% FLUSH 10 ML FLUSH IV FLUSH SCH ×3 (08:58→20:56)
[2017-08-18] MEDS: ASPIRIN 325 MG TAB PO SCH (08:59)
[2017-08-18] MEDS ORDERED: methylPREDNISolone SOD SUCC 40 MG/1 ML VIAL IV PUSH SCH (09:00)
[2017-08-18] MEDS: BUDESONIDE-FORMOTEROL 80/4.5 MCG INHALER INH SCH ×2 (09:08→20:55)
[2017-08-18] MEDS: HYDROCHLOROTHIAZIDE 12.5 MG CAP PO SCH (09:09)
[2017-08-18] MEDS: DULoxetine HCl DR 30 MG CAP PO SCH (09:09)
[2017-08-18] MEDS: LACTOBACILLUS ACIDOPHILUS TAB PO SCH ×2 (09:09→20:15)
[2017-08-18] MEDS ORDERED: PHARMACY ORDERED LAB ONE (11:45)
[2017-08-18] MEDS ORDERED: PROPOFOL 200 MG/20 ML AMP IV ONE (12:00)
[2017-08-18] MEDS ORDERED: ONDANSETRON HCL 4 MG/2 ML VIAL IV PUSH ONE (12:00)
[2017-08-18] MEDS ORDERED: DEXAMETHASONE SOD PHOS 4 MG/ML VIAL IV ONE (12:00)
[2017-08-18] MEDS ORDERED: PHENYLEPH/NS 1000 MCG/10 ML SYR IV ONE (12:00)
[2017-08-18] MEDS ORDERED: LIDOCAINE HCL 1% PF 5 ML SYRINGE OTHER ONE (12:00)
[2017-08-18] MEDS ORDERED: ROCURONIUM INJ 50 MG/5 ML SYRINGE IV PUSH ONE (12:00)
[2017-08-18] MEDS ORDERED: KETOROLAC TROMETHAMINE 30 MG/ML (IVP) VIAL IV PUSH ONE (12:00)
[2017-08-18] MEDS ORDERED: ePHEDrine/NS 25 MG/5 ML SYRINGE IV ONE (12:00)
--- NOTE | 2017-08-18 12:09 | HHI.PR ---
Subjective Remarks Patient complained of feeling sore at the site of the wound vac. No fevers or chills. Eating well. Objective Vitals Vital Signs Date Time Temp Pulse Resp B/P (MAP) Pulse Ox O2 Delivery O2 Flow Rate FiO2 08/18/17 08:15 98.6 84 13 119/62 (81) 94 Nasal Cannula 2 08/18/17 08:00 83 17 112/59 (76) 94 08/18/17 07:45 88 14 112/57 (75) 91 08/18/17 07:43 98.6 87 14 112/58 (76) 93 Nasal Cannula 2 08/18/17 05:26 97.7 87 18 119/56 (77) 95 08/18/17 03:00 95 08/18/17 00:40 98.3 91 18 116/59 (78) 95 08/17/17 21:09 97.7 81 18 125/67 (86) 94 08/17/17 16:30 98.1 85 18 139/79 (99) 92 08/17/17 15:59 92 08/17/17 12:26 98.2 99 18 133/66 (88) 91 I/O 08/17/17 08/17/17 08/17/17 08/18/17 08/18/17 08/18/17 07:00 15:00 23:00 07:00 15:00 23:00 Intake Total 259 ml 259 ml 720 ml 255 ml 500 ml Output Total 5 ml Balance 259 ml 259 ml 720 ml 255 ml 495 ml Intake Oral 720 ml IV Total 259 ml 259 ml 255 ml 500 ml Estimated Blood Loss 5 ml # Voids 6 3 Result Diagram: 08/18/17 0500 08/18/17 0500 Objective Remarks GENERAL: This is a well-nourished, well-developed patient, CARDIOVASCULAR: Regular rate and rhythm without murmurs, gallops, or rubs. RESPIRATORY: Bilateral flank expiratory wheezing, no rales, no increased work of breathing GASTROINTESTINAL: Abdomen soft, non-tender, nondistended. No guarding. : exam deferred. Wound VAC has serous sanguinous drainage MUSCULOSKELETAL: No calf tenderness. NEUROLOGICAL: Awake and alert. Motor and sensory grossly within normal limits. Normal speech. A/P Assessment and Plan 47-year-old female with autoimmune disease presenting with failed outpatient treatment for vulvar abscess. Hospitalist service following for medical management. Vulvar abscess and necrotizing fasciitis Status post debridement and placement of wound VAC right labial defect, debridement of nonviable tissue - blood cultures negative x 2 days, abscess +MRSA - Seen and evaluated by ID: RITIKA Zosyn IV, continue Vanc, continue oral Clinda for 08/16 (total 5 days) necrotizing fasciitis. - pain meds per primary COPD - CXR normal/no acute disease - continue abx as above -Transition to oral prednisone. RITIKA IV Solu-Medrol. - Encourage resp incentive spirometer - duonebs and albuterol alternating - Pulmonology following Rheumatological Disease - she is on steroids above for her COPD - this can be further worked up as an outpatient Anxiety/Depression - seen and evaluated by psych - Duloxetine 30 mg daily (can be titrated up to 20 mg BID) as clinically indicated - control pain - can be followed up further as an outpatient, CM to assist with resources HTN -Controlled -Stable on HCTZ 12.5 mg daily and titrate up as needed Discharge Planning Per primary Lobo Quinones MD Aug 18, 2017 12:09
--- NOTE | 2017-08-18 14:43 | MP ---
cc: FEI QUIROZ MD Corrected Copy: 08/19/17 DATE OF SURGERY 08/18/2017 PREOPERATIVE DIAGNOSES 1. Right labial abscess. 2. Intact wound VAC. POSTOPERATIVE DIAGNOSES 1. Right labial abscess. 2. Intact wound VAC. PROCEDURE 1. Examination under anesthesia. 2. Wound debridement. 3. Wound VAC change. SURGEON Gely Wong MD SHEET METAL INSULATOR SURGEON Fei Quiroz MD was present and scrubbed throughout the case. FINDINGS Erythema extending to the mons, marked off and dated. Wound 8 cm long, 2 cm wide, 3 cm deep. Healthy fat and granulation tissue present. Minimal necrotic fat that was debrided. ANTIBIOTICS Patient continued on her vancomycin and clindamycin preoperatively. FLUID REPLACEMENT 500 cc. URINE OUTPUT None. ESTIMATED BLOOD LOSS 5 cc. DVT PROPHYLAXIS Sequential compression devices throughout the case. ANESTHESIA General endotracheal. COUNTS Correct x 2. TIMEOUT Done and correct. SPECIMENS None. DISPOSITION Stable to PACU, then to return to the floor. Plan for wound VAC change, hopefully at bedside on 08/20/2017. INDICATIONS This patient is a 47-year-old female who was originally admitted on 08/14 for a right labial abscess that was incised and drained and packed with Kerlix. She underwent a repeat exploration, extension and debridement of her wound on 08/16/2017 and a wound VAC was placed at that time. She was seen this morning and would not tolerate wound VAC change at the bedside and was dispositioned for the above procedure. DESCRIPTION OF PROCEDURE The patient was taken to the operating room and placed in [facility] in dorsal lithotomy. The wound VAC was removed. The perineum and vagina were prepped and draped in a sterile fashion. The incision was extended approximately 1 cm cephalad and minimal necrotic debris was sharply debrided. Two wound VAC sponges were placed to fill the wound cavity. A wound VAC bridge was placed cephalad and the wound VAC was applied to suction of 150 mmHg. Intermittently it stated there was a possible leak, however, clinically looked suction to be adequate. The patient was awoken from anesthesia and tolerated the procedure well, was transferred to PACU. MD DEXTER Arevalo/BRANDIE /7:50 AM /9:05 AM
[2017-08-18] MEDS: IBUPROFEN 600 MG TAB PO SCH ×2 (16:13→22:04)
[2017-08-19] VITALS (8 sets, daily range): BP systolic 101–147; BP diastolic 53–70; PULSE 70–87; RESP 18–20; TEMP 97.3–98.7; O2SAT 91–96
[2017-08-19] MEDS: HYDROmorphone HCL 4 MG TAB PO SCH ×6 (01:04→21:49)
[2017-08-19] MEDS: CLINDAMYCIN 150 MG CAP PO SCH ×4 (01:04→16:39)
[2017-08-19] MEDS: HYDROmorphone HCL PF 2 MG/ML VIAL IV PUSH PRN ×4 (02:34→19:04)
[2017-08-19] MEDS: RESP: ALBUTEROL 2.5 MG/IPRATROPIUM 0.5 MG NEB (SCH) NEB ×4 (03:25→19:42)
[2017-08-19] MEDS: VANCOMYCIN INJ 900 MG in SODIUM CHLOR 0.9% 250 ML INJ 250 ML IV SCH ×3 (04:53→21:52)
[2017-08-19] MEDS: IBUPROFEN 600 MG TAB PO SCH ×4 (04:54→21:50)
[2017-08-19] MEDS: LORazepam 1 MG TAB PO PRN ×2 (05:02→21:50)
[2017-08-19 05:40] LABS: AUTOMATED NEUTROPHIL # 7.9 TH/MM3 (1.8-7.7); BASOPHIL % 0.3 % (0.0-2.0); EOSINOPHIL % 0.4 % (0.0-4.0); HEMATOCRIT 35.9 % (35.0-46.0); HEMOGLOBIN 11.8 GM/DL (11.6-15.3); LYMPHOCYTE # 1.3 TH/MM3 (1.0-4.8); MEAN CELL VOLUME 80.4 FL (80.0-100.0); MEAN CORPUSCULAR HEMOGLOBIN 26.5 PG (27.0-34.0); MEAN CORPUSCULAR HGB CONC 32.9 % (32.0-36.0); MEAN PLATELET VOLUME 8.2 FL (7.0-11.0); MONO % 7.6 % (0.0-8.0); MONOCYTE # 0.8 TH/MM3 (0-0.9); NEUT % 78.7 % (16.0-70.0); PLATELET COUNT 251 TH/MM3 (150-450); RED BLOOD COUNT 4.46 MIL/MM3 (4.00-5.30); RED CELL DISTRIBUTION WIDTH 16.8 % (11.6-17.2)
[2017-08-19] MEDS: ALBUTEROL SULFATE 90 MCG/ACT HFA 8 GM INHALER INH SCH ×5 (06:00→23:48)
[2017-08-19] MEDS: DIPYRIDAMOLE 75 MG PO SCH ×3 (06:03→21:59)
[2017-08-19] MEDS ORDERED: IBUP-232 PO (08:29)
[2017-08-19] MEDS ORDERED: BACT800T5 PO (08:30)
[2017-08-19] MEDS ORDERED: DILA4TAB10 PO (08:31)
--- NOTE | 2017-08-19 08:42 | HHI.PR ---
Subjective Remarks Doing well, pain is better still requiring IV meds, at home uses PO dilauded 4mg q6h for chronic pain. eating well, voiding. Objective Vital Signs Vital Signs Date Time Temp Pulse Resp B/P (MAP) Pulse Ox O2 Delivery O2 Flow Rate FiO2 08/19/17 05:53 98.4 79 18 102/53 (69) 94 08/19/17 01:11 97.6 87 18 109/59 (76) 94 08/19/17 00:00 88 Room Air 08/18/17 22:10 95 Nasal Cannula 2.00 08/18/17 20:50 97.6 75 18 114/63 (80) 95 08/18/17 15:56 98.2 74 20 133/77 (95) 95 08/18/17 15:54 Nasal Cannula 2.50 08/18/17 12:08 98.1 86 20 122/65 (84) 94 I/O 08/18/17 08/18/17 08/18/17 08/19/17 08/19/17 08/19/17 07:00 15:00 23:00 07:00 15:00 23:00 Intake Total 255 ml 1230 ml Output Total 5 ml Balance 255 ml 1225 ml Intake Oral 480 ml IV Total 255 ml 750 ml Estimated Blood Loss 5 ml # Voids 2 # Bowel Movements 1 Result Diagram: 08/19/17 0500 08/18/17 0500 Objective Remarks Abdomen is soft and non-distended. Erythema resolved on mons, tender around incision, wound vac to suction 150mmHg no leak, minimal output extremities stable A/P Assessment and Plan 1. Vulvar abscess / cellulitis / MRSA + Wound culture: POD 5/POD 3/ POD 1 s/p I& D packing / debridement and wound vac application and reapplications respectively. - WBC normalized this AM. Clinically improving, will space out IV diluaded, needs to be off these to d/c home Pt seems motivated. - Continue IV Vanc (goal 10-15) and PO clinda (to stop tomorrow), will switch to PO Bactrim before d/c, - RUE PICC (08/17/17), CXR confirmed correct placement, will remove before d/c home. - Dispo: Will try to change wound vac at bedside tomorrow AM, if can tolerate then d/c home either tomorrow or Thursday if clear from medicine standpoint from her other medical issues. Will have home health change M/W and pt to return to my office next thursday for eval and vac change. 2. Vasculitis / MDD / HTN / Chronic pain : continue current meds, HEPAS following along, appreciate recs / assistance, CM to assist with outpt follow up resources, sounds like will need to go to [facility]? - pt followed by Dr. Ron in [place] for chronic pain. 3. COPD: No of po roids, will need PO taper later, continue current bronchodilator regimen. - Normal CXR. 4. Social: poor living situation, needs disability to help arrange medicaid, CM assisting and my partner provided immigration attorney contact info to pt. appreciate consults Jon Goetz MD Aug 19, 2017 08:42
[2017-08-19] MEDS: predniSONE 20 MG TAB PO SCH ×2 (09:24→21:49)
[2017-08-19] MEDS: LACTOBACILLUS ACIDOPHILUS TAB PO SCH ×2 (09:24→21:49)
[2017-08-19] MEDS: ASPIRIN 325 MG TAB PO SCH (09:24)
[2017-08-19] MEDS: DULoxetine HCl DR 30 MG CAP PO SCH (09:24)
[2017-08-19] MEDS: HYDROCHLOROTHIAZIDE 12.5 MG CAP PO SCH (09:24)
[2017-08-19] MEDS: BUDESONIDE-FORMOTEROL 80/4.5 MCG INHALER INH SCH ×2 (09:25→21:00)
[2017-08-19] MEDS: SODIUM CHLORIDE 0.9% FLUSH 10 ML FLUSH IV FLUSH SCH ×3 (09:31→21:53)
--- NOTE | 2017-08-19 11:49 | HHI.PR ---
Subjective Remarks patient reports she is feeling much better. Pain is better controlled. No issues with breathing. Objective Vitals Vital Signs Date Time Temp Pulse Resp B/P (MAP) Pulse Ox O2 Delivery O2 Flow Rate FiO2 08/19/17 09:13 96 Nasal Cannula 2.00 08/19/17 09:05 97.9 70 20 115/57 (76) 96 08/19/17 05:53 98.4 79 18 102/53 (69) 94 08/19/17 01:11 97.6 87 18 109/59 (76) 94 08/19/17 00:00 88 Room Air 08/18/17 22:10 95 Nasal Cannula 2.00 08/18/17 20:50 97.6 75 18 114/63 (80) 95 08/18/17 15:56 98.2 74 20 133/77 (95) 95 08/18/17 15:54 Nasal Cannula 2.50 08/18/17 12:08 98.1 86 20 122/65 (84) 94 I/O 08/18/17 08/18/17 08/18/17 08/19/17 08/19/17 08/19/17 07:00 15:00 23:00 07:00 15:00 23:00 Intake Total 255 ml 1230 ml Output Total 5 ml Balance 255 ml 1225 ml Intake Oral 480 ml IV Total 255 ml 750 ml Estimated Blood Loss 5 ml # Voids 2 # Bowel Movements 1 Result Diagram: 08/19/17 0500 08/18/17 0500 Objective Remarks GENERAL: This is a well-nourished, well-developed patient, CARDIOVASCULAR: Regular rate and rhythm without murmurs, gallops, or rubs. RESPIRATORY: Bilateral faint expiratory wheezing, no rales, no increased work of breathing GASTROINTESTINAL: Abdomen soft, non-tender, nondistended. No guarding. : exam deferred. Wound VAC has serous sanguinous drainage MUSCULOSKELETAL: No calf tenderness. NEUROLOGICAL: Awake and alert. Motor and sensory grossly within normal limits. Normal speech. A/P Assessment and Plan 47-year-old female with autoimmune disease presenting with failed outpatient treatment for vulvar abscess. Hospitalist service following for medical management. Vulvar abscess and necrotizing fasciitis Status post debridement and placement of wound VAC right labial defect, debridement of nonviable tissue - blood cultures negative x 2 days, abscess +MRSA - Seen and evaluated by ID: RITIKA Zosyn IV, continue Vanc, continue oral Clinda for 08/16 (total 5 days) necrotizing fasciitis. 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 Continue aspirin. Outpatient follow-up is advised. Anxiety/Depression - seen and evaluated by psych - Duloxetine 30 mg daily (can be titrated up to 20 mg BID) as clinically indicated - control pain - can be followed up further as an outpatient, CM to assist with resources HTN -Controlled -Stable on HCTZ 12.5 mg daily and titrate up as needed Discharge Planning Per primary Lobo Quinones MD Aug 19, 2017 11:49
--- NOTE | 2017-08-19 15:55 | HHI.PR ---
Subjective Remarks alert still congested no acute distress Objective Vital Signs Date Time Temp Pulse Resp B/P (MAP) Pulse Ox O2 Delivery O2 Flow Rate FiO2 08/19/17 15:49 98.7 76 20 122/62 (82) 96 08/19/17 12:26 97.4 70 20 101/62 (75) 93 08/19/17 11:42 15 08/19/17 11:42 15 08/19/17 09:13 96 Nasal Cannula 2.00 08/19/17 09:05 97.9 70 20 115/57 (76) 96 08/19/17 05:53 98.4 79 18 102/53 (69) 94 08/19/17 01:11 97.6 87 18 109/59 (76) 94 08/19/17 00:00 88 Room Air 08/18/17 22:10 95 Nasal Cannula 2.00 08/18/17 20:50 97.6 75 18 114/63 (80) 95 08/18/17 15:56 98.2 74 20 133/77 (95) 95 I/O 08/18/17 08/18/17 08/18/17 08/19/17 08/19/17 08/19/17 07:00 15:00 23:00 07:00 15:00 23:00 Intake Total 255 ml 1230 ml 600 ml Output Total 5 ml Balance 255 ml 1225 ml 600 ml Intake Oral 480 ml 600 ml IV Total 255 ml 750 ml Estimated Blood Loss 5 ml # Voids 2 3 # Bowel Movements 1 1 Result Diagram: 08/19/17 0500 08/18/17 0500 Assessment and Plan Assessment and Plan ass copd/asthma plan continue bronchodilators increase activity Reed Mcbride MD Aug 19, 2017 15:55
[2017-08-19] MEDS ORDERED: SYMB160A INH (16:35)
[2017-08-19] MEDS ORDERED: PRED20 PO (16:35)
[2017-08-19] MEDS ORDERED: ASPI-183 PO (16:35)
[2017-08-20 00:19] VITALS: BP 127/65; PULSE 70; RESP 17; TEMP 98.1; O2SAT 94
[2017-08-20] MEDS: HYDROmorphone HCL 4 MG TAB PO SCH ×4 (00:58→12:30)
[2017-08-20] MEDS: CLINDAMYCIN 150 MG CAP PO SCH ×3 (01:00→12:26)
[2017-08-20] MEDS: VANCOMYCIN INJ 900 MG in SODIUM CHLOR 0.9% 250 ML INJ 250 ML IV SCH ×2 (03:10→12:26)
[2017-08-20] MEDS: HYDROmorphone HCL PF 2 MG/ML VIAL IV PUSH PRN (03:10)
[2017-08-20] MEDS: RESP: ALBUTEROL 2.5 MG/IPRATROPIUM 0.5 MG NEB (SCH) NEB ×2 (05:00→10:02)
[2017-08-20 05:22] VITALS: BP 134/74; PULSE 64; RESP 17; TEMP 97.7; O2SAT 94
[2017-08-20] MEDS: LORazepam 1 MG TAB PO PRN (05:31)
[2017-08-20] MEDS: DIPYRIDAMOLE 75 MG PO SCH ×2 (05:31→14:41)
[2017-08-20] MEDS: ALBUTEROL SULFATE 90 MCG/ACT HFA 8 GM INHALER INH SCH ×2 (05:31→12:26)
[2017-08-20] MEDS: IBUPROFEN 600 MG TAB PO SCH ×2 (05:31→08:45)
[2017-08-20] MEDS ORDERED: HYDROmorphone HCL PF 2 MG/ML VIAL IV PUSH ONE (06:30)
--- NOTE | 2017-08-20 07:22 | HHI.PR ---
Subjective Remarks Doing well, pain is well controlled, eating well. Objective Vital Signs Vital Signs Date Time Temp Pulse Resp B/P (MAP) Pulse Ox O2 Delivery O2 Flow Rate FiO2 08/20/17 05:22 97.7 64 17 134/74 (94) 94 08/20/17 00:19 98.1 70 17 127/65 (85) 94 08/19/17 21:30 Nasal Cannula 2.00 08/19/17 20:30 97.3 80 18 147/70 (95) 93 08/19/17 19:45 91 21 08/19/17 15:49 98.7 76 20 122/62 (82) 96 08/19/17 12:26 97.4 70 20 101/62 (75) 93 08/19/17 11:42 15 08/19/17 11:42 15 08/19/17 09:13 96 Nasal Cannula 2.00 08/19/17 09:05 97.9 70 20 115/57 (76) 96 I/O 08/19/17 08/19/17 08/19/17 08/20/17 08/20/17 08/20/17 07:00 15:00 23:00 07:00 15:00 23:00 Intake Total 600 ml 319 ml 499 ml Balance 600 ml 319 ml 499 ml Intake Oral 600 ml 60 ml 240 ml IV Total 259 ml 259 ml # Voids 3 2 3 # Bowel Movements 1 Result Diagram: 08/19/17 0500 08/18/17 0500 Objective Remarks Abdomen is soft and non-distended. Erythema resolved on mons, tender around incision, wound vac to suction 150mmHg no leak, minimal output, removed and wound bed mostly healthy, some yellow exudate, irrgated, and repacked with akers foam and applied wound vac again, no leak appreciated. extremities stable A/P Assessment and Plan 1. Vulvar abscess / cellulitis / MRSA + Wound culture: POD 6/POD 4/ POD 2 s/p I& D packing / debridement and wound vac application and reapplications respectively. - clincally improving, she feels ok to d/c her IV dilaudid and ready to d/c home. - Continue IV Vanc (goal 10-15) and PO clinda (to stop today), will switch to PO Bactrim at time of discharge. - RUE PICC (08/17/17), CXR confirmed correct placement, will remove before d/c home. - Dispo: Hopefully home today if home health arranged, will remove picc if that is the case. Will touch base with CM to see if pt address / phone number are correct and if there is any financial assistance or hermes for her necessary medications. - Will have home health change wond vac thursday / thursday and pt to return to my office next thursday for eval and vac change. 2. Vasculitis / MDD / HTN / Chronic pain : continue current meds, [facility] following along, appreciate recs / assistance, CM to assist with outpt follow up resources, sounds like will need to go to [facility] - pt followed by Dr. Ron in [place] for chronic pain. 3. COPD: No of po roids, will need PO taper later, continue current bronchodilator regimen. - Normal CXR. 4. 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 appreciate consults Jon Goetz MD Aug 20, 2017 07:21
[2017-08-20 08:00] VITALS: BP 121/67; PULSE 63; RESP 16; TEMP 97.9; O2SAT 93
[2017-08-20] MEDS: predniSONE 20 MG TAB PO SCH (08:43)
[2017-08-20] MEDS: LACTOBACILLUS ACIDOPHILUS TAB PO SCH (08:44)
[2017-08-20] MEDS: DULoxetine HCl DR 30 MG CAP PO SCH (08:44)
[2017-08-20] MEDS: HYDROCHLOROTHIAZIDE 12.5 MG CAP PO SCH (08:44)
[2017-08-20] MEDS: ASPIRIN 325 MG TAB PO SCH (08:45)
[2017-08-20] MEDS: BUDESONIDE-FORMOTEROL 80/4.5 MCG INHALER INH SCH (08:46)
[2017-08-20] MEDS: SODIUM CHLORIDE 0.9% FLUSH 10 ML FLUSH IV FLUSH SCH ×2 (08:47→08:48)
[2017-08-20 10:06] VITALS: O2SAT 92
[2017-08-20] MEDS ORDERED: CYMB30CA PO (11:55)
--- NOTE | 2017-08-20 11:57 | HHI.DCPOC ---
Discharge Care Plan Diagnosis: (1) Abscess of labia (2) COPD (chronic obstructive pulmonary disease) (3) Opiate dependence (4) Livedoid vasculitis (5) Chronic pain (6) Cellulitis (7) HTN (hypertension) (8) Depression Your Health Problems Are: Shortness of breath Additional Problems labial abscess Report Symptoms to Your Doctor -Temperature above 100.5 degrees -Redness, of incision or excessive or foul smelling drainage -Unusual pain or calf pain -Increased vaginal bleeding -Painful or difficulty urinating -Feelings of extreme sadness or anxiety after 2 weeks Goals to Promote Your Health * To prevent worsening of your condition and complications * To maintain your health at the optimal level Directions to Meet Your Goals Take your medications as prescribed Follow your dietary instruction Follow activity as directed Ensure plenty of rest for recovery Drink fluids for hydration Keep your appointments as scheduled Take your immunizations and boosters as scheduled If your symptoms worsen call your PCP, if no PCP go to Urgent Care Center or Emergency Room Smoking is Dangerous to Your Health. Avoid second hand smoke Call the 24-hour crisis hotline for domestic abuse at Jon Goetz MD Aug 20, 2017 11:57
[2017-08-20 12:00] VITALS: BP 138/78; PULSE 75; RESP 16; TEMP 98.1; O2SAT 96
[2017-08-20] MEDS ORDERED: [UNRECOGNIZED DRUG - OTHER] (12:29)
[2017-08-20] MEDS ORDERED: HYDROmorphone HCL PF 4 MG/ML VIAL IV PUSH ONE (14:30)
--- NOTE | 2017-08-20 16:32 | HHI.PR ---
Subjective Remarks Patient reports she is feeling okay today. Being discharged today per primary team. We discussed maintenance medication for COPD and the need to follow-up. Objective Vitals Vital Signs Date Time Temp Pulse Resp B/P (MAP) Pulse Ox O2 Delivery O2 Flow Rate FiO2 08/20/17 12:00 98.1 75 16 138/78 (98) 96 08/20/17 10:06 92 08/20/17 08:00 97.9 63 16 121/67 (85) 93 08/20/17 05:22 97.7 64 17 134/74 (94) 94 08/20/17 00:19 98.1 70 17 127/65 (85) 94 08/19/17 21:30 Nasal Cannula 2.00 08/19/17 20:30 97.3 80 18 147/70 (95) 93 08/19/17 19:45 91 21 I/O 08/19/17 08/19/17 08/19/17 08/20/17 08/20/17 08/20/17 07:00 15:00 23:00 07:00 15:00 23:00 Intake Total 600 ml 319 ml 499 ml Balance 600 ml 319 ml 499 ml Intake Oral 600 ml 60 ml 240 ml IV Total 259 ml 259 ml # Voids 3 2 3 # Bowel Movements 1 Result Diagram: 08/19/17 0500 08/18/17 0500 Objective Remarks GENERAL: This is a well-nourished, well-developed patient, CARDIOVASCULAR: Regular rate and rhythm without murmurs, gallops, or rubs. RESPIRATORY: Clear to auscultation bilaterally, no rales, no increased work of breathing GASTROINTESTINAL: Abdomen soft, non-tender, nondistended. No guarding. : exam deferred. Wound VAC has serous sanguinous drainage MUSCULOSKELETAL: No calf tenderness. NEUROLOGICAL: Awake and alert. Motor and sensory grossly within normal limits. Normal speech. A/P Assessment and Plan 47-year-old female with autoimmune disease presenting with failed outpatient treatment for vulvar abscess. Hospitalist service following for medical management. Vulvar abscess and necrotizing fasciitis Status post debridement and placement of wound VAC right labial defect, debridement of nonviable tissue - blood cultures negative x 2 days, abscess +MRSA - Seen and evaluated by ID: DC Zosyn IV, continue Vanc, continue oral Clinda for 08/16 (total 5 days) necrotizing fasciitis. - pain meds per primary. Patient to continue treatment on antibiotics per primary/ID. COPD - CXR normal/no acute disease -Continue to taper oral prednisone per med rec - Encourage resp incentive spirometer - Pulmonology followed the patient. Advised her to follow-up outpatient for maintenance. Liveloid vasculitis/Rheumatological Disease -No new lower extremity lesions. Continue aspirin. Outpatient follow-up is advised. Anxiety/Depression - seen and evaluated by psych - Duloxetine 30 mg daily - can be followed up further as an outpatient, CM to assist with resources Prescriptions per med rec. Cleared for discharge from Hospitalist standpoint. Discharge Planning Per primary Lobo Quinones MD Aug 20, 2017 16:32
== END 2017-08-20 16:21 | disposition home health service (06) | DRG 746 ==
LOC: NEPC 11:54 → NEDA 13:38 → N05A 17:31
PROVIDERS: ADMIT Obstetrics & Gynecology; ATTEND Obstetrics & Gynecology
PROC: 0U9MXZX Drainage of Vulva, External Approach, Diagnostic (ICD-10-PCS; principal; 2017-08-14 06:51)
PROC: 0UBMXZZ Excision of Vulva, External Approach (ICD-10-PCS; 2017-08-16)
PROC: 2Y54X5Z Removal of Female Genital Tract Packing Material (ICD-10-PCS; 2017-08-16)
PROC: 02HV33Z Insertion of Infusion Device into Superior Vena Cava, Percutaneous Approach (ICD-10-PCS; 2017-08-16)
PROC: 0UBMXZZ Excision of Vulva, External Approach (ICD-10-PCS; 2017-08-18)
DX: N76.4 Abscess of vulva (principal); M72.6 Necrotizing fasciitis; J44.1 Chronic obstructive pulmonary disease with (acute) exacerbation; L03.315 Cellulitis of perineum; B95.62 Methicillin resistant Staphylococcus aureus infection as the cause of diseases classified elsewhere; N76.2 Acute vulvitis; G89.29 Other chronic pain; L95.0 Livedoid vasculitis; I10 Essential (primary) hypertension; M06.9 Rheumatoid arthritis, unspecified; F43.21 Adjustment disorder with depressed mood; E66.9 Obesity, unspecified; F32.9 Major depressive disorder, single episode, unspecified; F41.9 Anxiety disorder, unspecified; Z79.52 Long term (current) use of systemic steroids; Z87.891 Personal history of nicotine dependence; Z68.32 Body mass index [BMI] 32.0-32.9, adult
CPT/HCPCS: 36569; 71045; 71046; 74177; 76937; 80048; 80053; 80202; 81001; 83036; 83605; 84443; 84703; 85025; 85610; 85652; 85730; 86038; 86403; 86430; 86703; 87015; 87040; 87070; 87102; 87116; 87147; 87186; 87205; 87206; 87491; 87591; 88304; 88305; 93005; 94150; 94640; 94664; J0131; J1100; J1170; J1642; J1885; J2175; J2250; J2370; J2405; J2543; J2920; J2930; J3010; J3370; J7030; J7050; J7120; J7512; J7613; Q9967

== ENCOUNTER 2017-09-05 06:34 | Observation (INO) | payer SELFPAY ==
[2017-09-05] VITALS (13 sets, daily range): BP systolic 108–142; BP diastolic 56–68; PULSE 88–135; RESP 17–30; TEMP 97.8–98.6; O2SAT 94–100
[~2017-09-05] VITALS: Ht 162.6 cm; Wt 100.0 kg
[~2017-09-05 06:34] MED LIST changes: +BACT800T5 PO; -CLIN300C5 PO; +CYMB30CA PO; -DIPY75TA PO; +IBUP-232 PO; -NEUR300C PO; -NYST1000 SWISH-SWAL; +[UNRECOGNIZED DRUG - OTHER]
[2017-09-05] MEDS ORDERED: LORazepam 2 MG/ML VIAL IM ONE (07:00)
[2017-09-05] MEDS ORDERED: SODIUM CHLORIDE 0.9% FLUSH 10 ML FLUSH IVF PRN (07:30)
[2017-09-05] MEDS ORDERED: methylPREDNISolone SOD SUCC 125 MG/2 ML VIAL IV PUSH ONE (07:30)
[2017-09-05] MEDS ORDERED: LORazepam 2 MG/ML VIAL IV PUSH ONE (07:30)
--- NOTE | 2017-09-05 07:33 | PD ---
HPI Chief Complaint: Respiratory Symptoms Time Seen by Provider: 07:05 Travel History International Travel<30 days: No Contact w/Intl Traveler<30days: No Traveled to known affect area: No History of Present Illness HPI There is a 47-year-old woman who presents to the emergency department complaining of breathing difficulties. She apparently awoke in the middle the night with severe shortness of breath. Her describes her as having a red swollen face with red skin changes suggestive of allergic reaction. Patient was recently treated for a vulvar abscess, and has a history of livedoid vasculopathy. She is taking Bactrim but has taken it multiple times in the past without any problems. There is no other new medications. She recently finished a steroid taper for breathing difficulties. She has a history of COPD. She however was feeling well from a breathing standpoint prior to tonight. No fevers. No chest pain. EMS was unable to establish vascular access, gave her subcutaneous epinephrine, placed her on BiPAP, with some improvement. She is feeling significantly improved at this time. History Past Medical History Narrative Medical Livedoid vasculopathy COPD Remote history of seizures Chronic pain, on chronic opiates PNEUMOCCOCAL Vaccine (Year): 2 Menopausal: Yes : 1 Para: 1 Social History Alcohol Use: Yes Tobacco Use: No Allergies-Medications (Allergen,Severity, Reaction): Coded Allergies: No Known Allergies (Verified Adverse Reaction, Unknown, 09/05/17) Reported Meds & Prescriptions Reported Meds & Active Scripts Active Wound Vac (Device) 1 Ea Ea Ea .ROUTE DIRECTED home health to come and change thursday and thursday, thursday to be done at [place] [facility] hand office [address] (Duloxetine HCl) 30 Mg Capdr 30 Mg PO DAILY 30 Days Prednisone 20 Mg Tab 20 Mg PO DAILY Symbicort Inh (Budesonide/Formoterol Fumarate) 160-4.5 Mcg/Act Aero 2 Puff INH Q12HR Aspirin 325 Mg Tab 325 Mg PO DAILY Dilaudid (Hydromorphone HCl) 4 Mg Tab 4 Mg PO Q4H PRN Bactrim DS (Sulfamethoxazole-Trimethoprim) 800-160 Mg Tab 1 Tab PO BID 14 Days Ibuprofen 600 Mg Tab 600 Mg PO Q6H PRN 20 Days Duoneb (Ipratropium-Albuterol Neb) 0.5-2.5 Mg/3 Ml Neb 1 Ampule NEB Q8HR PRN q8hrs schedules x 3-4 days then as needed Proventil Hfa 6.7 GM Inh (Albuterol Sulfate) 90 Mcg/Act Aer 2 Puff INH Q4-6H PRN Dilaudid (Hydromorphone HCl) 4 Mg Tab 4 Mg PO Q4-6H PRN Albuterol Neb (Albuterol Sulfate) 2.5 Mg/0.5 Ml Neb 2.5 Mg NEB TID NEB PRN Note: The Albuterol Sulfate Inhalation Solution is concentrated and must be diluted. Read complete instructions carefully before using. Reported Ibuprofen 800 Mg Tab 800 Mg PO Q6HR PRN Review of Systems Except as stated in HPI: all other systems reviewed are Neg Physical Exam Narrative GENERAL: Well-appearing 47-year-old woman, mild respiratory distress now. SKIN: Focused skin assessment warm/dry. Extensive scarring on both lower extremities. HEAD: Atraumatic. Normocephalic. EYES: Pupils equal and round. No scleral icterus. No injection or drainage. ENT: No nasal bleeding or discharge. Mucous membranes pink and moist. NECK: Trachea midline. No JVD. CARDIOVASCULAR: Regular rate and rhythm. No murmur appreciated. RESPIRATORY: Mild respiratory distress. On BiPAP now. Coarse wheezing throughout the posterior lung bello. No rhonchi. GASTROINTESTINAL: Abdomen soft, non-tender, nondistended. Hepatic and splenic margins not palpable. MUSCULOSKELETAL: No obvious deformities. Slight edema both lower extremities. NEUROLOGICAL: Awake and alert. No obvious cranial nerve deficits. Motor grossly within normal limits. Normal speech. Data Data Last Documented VS Vital Signs Date Time Temp Pulse Resp B/P (MAP) Pulse Ox O2 Delivery O2 Flow Rate FiO2 09/05/17 08:30 98 Nasal Cannula 3.00 09/05/17 07:41 40 09/05/17 07:32 09/05/17 06:42 133 30 Orders Orders Lorazepam Inj (Ativan Inj) (09/05/17 07:00) Complete Blood Count With Diff (09/05/17 07:19) Comprehensive Metabolic Panel (09/05/17 07:19) B-Type Natriuretic Peptide (09/05/17 07:19) Troponin I (09/05/17 07:19) Influenzae A/B Antigen (09/05/17 07:19) Iv Access Insert/Monitor (09/05/17 07:19) Electrocardiogram (09/05/17 07:19) Ecg Monitoring (09/05/17 07:19) Oximetry (09/05/17 07:19) Oxygen Administration (09/05/17 07:19) Chest, Single Ap (09/05/17 07:19) Sodium Chloride 0.9% Flush (Ns Flush) (09/05/17 07:30) Methylprednisolone So Succ Inj (Solumedr (09/05/17 07:30) Albuterol-Ipratropium Neb (Duoneb Neb) (09/05/17 07:30) Resp Bipap / Cpap Non Invas Vt (09/05/17 07:19) Lorazepam Inj (Ativan Inj) (09/05/17 07:30) Admit Order (Ed Use Only) (09/05/17 ) Labs Laboratory Tests Test 09/05/17 07:30 White Blood Count 9.9 TH/MM3 Red Blood Count 5.67 MIL/MM3 Hemoglobin 15.3 GM/DL Hematocrit 44.6 % Mean Corpuscular Volume 78.7 FL Mean Corpuscular Hemoglobin 27.0 PG Mean Corpuscular Hemoglobin Concent 34.3 % Red Cell Distribution Width 17.0 % Platelet Count 263 TH/MM3 Mean Platelet Volume 8.4 FL Neutrophils (%) (Auto) 74.6 % Lymphocytes (%) (Auto) 21.4 % Monocytes (%) (Auto) 1.9 % Eosinophils (%) (Auto) 1.6 % Basophils (%) (Auto) 0.5 % Neutrophils # (Auto) 7.4 TH/MM3 Lymphocytes # (Auto) 2.1 TH/MM3 Monocytes # (Auto) 0.2 TH/MM3 Eosinophils # (Auto) 0.2 TH/MM3 Basophils # (Auto) 0.0 TH/MM3 CBC Comment DIFF FINAL Differential Comment Blood Urea Nitrogen 14 MG/DL Creatinine 0.94 MG/DL Random Glucose 174 MG/DL Total Protein 8.3 GM/DL Albumin 3.8 GM/DL Calcium Level 8.9 MG/DL Alkaline Phosphatase 110 U/L Aspartate Amino Transf (AST/SGOT) 18 U/L Alanine Aminotransferase (ALT/SGPT) 24 U/L Total Bilirubin 0.5 MG/DL Sodium Level 137 MEQ/L Potassium Level 3.5 MEQ/L Chloride Level 99 MEQ/L Carbon Dioxide Level 29.0 MEQ/L Anion Gap 9 MEQ/L Estimat Glomerular Filtration Rate 64 ML/MIN Troponin I LESS THAN 0.02 NG/ML B-Type Natriuretic Peptide LESS THAN 2 PG/ML MDM Medical Decision Making Medical Screen Exam Complete: Yes Emergency Medical Condition: Yes Interpretation(s) My review of EKG: Sinus tachycardia at a rate of 114, normal axis, normal intervals, no definite evidence of acute ischemia. LABS: CBC is unremarkable. CMP unremarkable. Troponin negative. BNP Chest x-ray: Negative Influenza: Negative for influenza Differential Diagnosis COPD exacerbation, allergic reaction, heart failure, pneumonia, other Narrative Course Medical decision making INITIAL: 47-year-old woman, had worsening respiratory difficulties, seem to be abrupt in onset associate with some skin changes I could suggest an allergic reaction. She looks improved at this time. COPD flare also distinctively possible. IV access was difficult, I placed an ultrasound-guided peripheral IV at the bedside. FINAL: Significant improvement. Still concerned for acute exacerbation with low oxygen saturations versus severe allergic reaction with an unknown precipitant. Spoke with Dr. Barboza, will admit patient. Procedures Procedure Narrative Ultrasound-guided peripheral IV: Ultrasound guided peripheral IV was necessary because nursing staff unable to establish IV access. The right arm was prepped with chlorhexidine and was examined under ultrasound. Suitable IV site was found in the right AC fossa. A 20-gauge catheter was introduced under direct ultrasound guidance into the vein. There was good blood return. It flushed easily. Patient tolerated well. Diagnosis Primary Impression: COPD with acute exacerbation Additional Impression: Allergic reaction Admitting Information Admitting Physician Requests: Admit Vincent Marti MD Sep 05, 2017 07:33
--- NOTE | 2017-09-05 07:46 | RADRPT ---
EXAM DATE/TIME: 09/05/2017 07:27 [facility] COMPARISON: CHEST SINGLE AP, August 16, 2017, 11:11. INDICATIONS : Short of breath MEDICAL HISTORY : Chronic obstructive pulmonary disease. Cardiovascular disease. SURGICAL HISTORY : None. ENCOUNTER: Initial ACUITY: 1 day PAIN SCORE: 0/10 LOCATION: chest FINDINGS: A single view of the chest demonstrates the lungs to be symmetrically aerated without evidence of mas s, infiltrate or effusion. The cardiomediastinal contours are unremarkable. Osseous structures are intact. CONCLUSION: No acute disease. Masoud Orellana MD on September 05, 2017 at 7:43 Board Certified Radiologist. This report was verified electronically.
[2017-09-05] MEDS: RESP: ALBUTEROL 2.5 MG/IPRATROPIUM 0.5 MG NEB (SCH) INH (07:47)
[2017-09-05 07:58] LABS: AUTOMATED NEUTROPHIL # 7.4 TH/MM3 (1.8-7.7); BASOPHIL % 0.5 % (0.0-2.0); EOSINOPHIL # 0.2 TH/MM3 (0-0.4); EOSINOPHIL % 1.6 % (0.0-4.0); HEMATOCRIT 44.6 % (35.0-46.0); HEMOGLOBIN 15.3 GM/DL (11.6-15.3); LYMPH % 21.4 % (9.0-44.0); LYMPHOCYTE # 2.1 TH/MM3 (1.0-4.8); MEAN CELL VOLUME 78.7 FL (80.0-100.0); MEAN CORPUSCULAR HGB CONC 34.3 % (32.0-36.0); MEAN PLATELET VOLUME 8.4 FL (7.0-11.0); MONO % 1.9 % (0.0-8.0); MONOCYTE # 0.2 TH/MM3 (0-0.9); NEUT % 74.6 % (16.0-70.0); PLATELET COUNT 263 TH/MM3 (150-450); RED BLOOD COUNT 5.67 MIL/MM3 (4.00-5.30); WHITE BLOOD COUNT 9.9 TH/MM3 (4.0-11.0)
[2017-09-05 08:18] LABS: ALBUMIN 3.8 GM/DL (3.4-5.0); ALT (GPT) 24 U/L (10-53); AST (GOT) 18 U/L (15-37); BLOOD UREA NITROGEN 14 MG/DL (7-18); CALCIUM 8.9 MG/DL (8.5-10.1); CHLORIDE 99 MEQ/L (98-107); CREATININE 0.94 MG/DL (0.50-1.00); GLOMERULAR FILTRATION RATE 64 ML/MIN (>89); GLUCOSE,RANDOM 174 MG/DL (74-106); SODIUM (NA) 137 MEQ/L (136-145)
[2017-09-05 08:22] LABS: ALKALINE PHOSPHATASE 110 U/L (45-117); TOTAL BILIRUBIN ADULT 0.5 MG/DL (0.2-1.0); TOTAL PROTEIN 8.3 GM/DL (6.4-8.2); TROPONIN I LESS THAN 0.02 NG/ML (0.02-0.05)
[2017-09-05] MEDS ORDERED: NALOXONE HCL 0.4 MG/ML AMP IV PUSH PRN (09:30)
[2017-09-05] MEDS ORDERED: ONDANSETRON HCL 4 MG/2 ML VIAL IVP PRN (09:30)
[2017-09-05] MEDS ORDERED: SODIUM CHLORIDE 0.9% FLUSH 10 ML FLUSH IV FLUSH PRN (09:30)
[2017-09-05] MEDS ORDERED: RESP: ALBUTEROL 2.5 MG/IPRATROPIUM 0.5 MG NEB (PRN) NEB (09:30)
[2017-09-05] MEDS ORDERED: SENNOSIDES 8.6 MG TAB PO PRN (09:30)
[2017-09-05] MEDS ORDERED: BISACODYL 10 MG SUPP RECTAL PRN (09:30)
[2017-09-05] MEDS ORDERED: MAGNESIUM HYDROXIDE SUSP 30 ML CUP PO PRN (09:30)
[2017-09-05] MEDS ORDERED: LACTULOSE SYRUP 20 GM/30 ML CUP PO PRN (09:30)
[2017-09-05] MEDS ORDERED: ENOXAPARIN SODIUM 40 MG/0.4 ML SYRINGE SQ SCH ×2 (10:00→17:00)
[2017-09-05] MEDS: RESP: ALBUTEROL 2.5 MG/IPRATROPIUM 0.5 MG NEB (SCH) NEB ×3 (10:20→20:36)
[2017-09-05] MEDS ORDERED: methylPREDNISolone SOD SUCC 40 MG/1 ML VIAL IV PUSH SCH (14:00)
--- NOTE | 2017-09-05 14:44 | EKG ---
Date Performed: 09/05/2017 Time Performed: 06:38:39 PTAGE: 47 years EKG: SINUS TACHYCARDIA WITH OCCASIONAL VENTRICULAR PREMATURE COMPLEXES MODERATE ST DEPRESSION Wh en compared to previous tracing, heart rate is fasteer and Premature ventricular contractions are new . ABNORMAL ECG PREVIOUS TRACING : 08/13/2017 12.37 DOCTOR: Thomas Cortés Interpretating Date/Time 09/07/2017 06:51:54
[2017-09-05] MEDS ORDERED: HYDROmorphone HCL 4 MG TAB PO ONE (16:00)
[2017-09-05] MEDS ORDERED: AZITHROMYCIN 250 MG TAB PO ONE (16:15)
[2017-09-05] MEDS ORDERED: LORATADINE 10 MG TAB PO ONE (16:15)
--- NOTE | 2017-09-05 16:15 | HHI.HP ---
HPI Service [facility] Hospitalists Primary Care Physician No Primary Care Physician Admission Diagnosis COPD exacerbation, allergic reaction Diagnoses: Travel History International Travel<30 Days: No Contact w/Intl Traveler <30 Da: No Traveled to Known Affected Are: No History of Present Illness 47-year-old female with a history of COPD, lipid avoid vasculitis, recent groin abscess incision and drainage last month, having completed a course of Bactrim with last dose yesterday. Patient woke up this morning around 5 AM with extreme shortness of breath, wheezing, swollen lips. She does report a dry cough along with some postnasal drip for the past few days, denies any fevers or chills. She says she continues to have wheezing, however her shortness of breath is much improved. Denies any nausea or vomiting. Denies any chest pain. Review of Systems Performed and negative except for history of present illness and past medical history. Past Family Social History Past Medical History COPD Lipid avoid vasculitis Recent incision and drainage of labile abscess last month. Chronic pain on narcotics Depression Remote history of seizures Past Surgical History Recent incision and drainage of vulvar abscess in the past Left elbow reconstruction Tonsillectomy Reported Medications Reported Meds & Active Scripts Active Wound Vac (Device) 1 Ea Ea Ea .ROUTE DIRECTED home health to come and change thursday and thursday, thursday to be done at [facility] Cymbalta DR (Duloxetine HCl) 30 Mg Capdr 30 Mg PO DAILY 30 Days Prednisone 20 Mg Tab 20 Mg PO DAILY Symbicort Inh (Budesonide/Formoterol Fumarate) 160-4.5 Mcg/Act Aero 2 Puff INH Q12HR Aspirin 325 Mg Tab 325 Mg PO DAILY Dilaudid (Hydromorphone HCl) 4 Mg Tab 4 Mg PO Q4H PRN Bactrim DS (Sulfamethoxazole-Trimethoprim) 800-160 Mg Tab 1 Tab PO BID 14 Days Ibuprofen 600 Mg Tab 600 Mg PO Q6H PRN 20 Days Duoneb (Ipratropium-Albuterol Neb) 0.5-2.5 Mg/3 Ml Neb 1 Ampule NEB Q8HR PRN q8hrs schedules x 3-4 days then as needed Proventil Hfa 6.7 GM Inh (Albuterol Sulfate) 90 Mcg/Act Aer 2 Puff INH Q4-6H PRN Dilaudid (Hydromorphone HCl) 4 Mg Tab 4 Mg PO Q4-6H PRN Albuterol Neb (Albuterol Sulfate) 2.5 Mg/0.5 Ml Neb 2.5 Mg NEB TID NEB PRN Note: The Albuterol Sulfate Inhalation Solution is concentrated and must be diluted. Read complete instructions carefully before using. Reported Ibuprofen 800 Mg Tab 800 Mg PO Q6HR PRN Allergies: Coded Allergies: No Known Allergies (Verified Adverse Reaction, Unknown, 09/05/17) Family History Patient reports she was brought up with foster care, is uncertain about her family medical history. Social History . Former smoker. Denies alcohol. Denies illicit drugs. Physical Exam Vital Signs Vital Signs Date Time Temp Pulse Resp B/P (MAP) Pulse Ox O2 Delivery O2 Flow Rate FiO2 09/05/17 12:01 98.2 89 20 114/68 (83) 98 09/05/17 09:54 128/57 (80) 99 Nasal Cannula 3.00 09/05/17 09:51 128/57 (80) 99 Nasal Cannula 3.00 09/05/17 08:30 98 Nasal Cannula 3.00 09/05/17 07:41 98 40 09/05/17 07:32 100 BiPAP 09/05/17 07:32 100 BiPAP 18 06:46 99 50 09/05/17 06:42 133 30 96 8.00 09/05/17 06:42 132 30 142/63 (89) 98 BiPAP 50 09/05/17 06:37 135 30 94 Physical Exam GENERAL: This is a well-nourished, well-developed patient, in no apparent distress. aaox3 SKIN: Vision does have some Jorge lesions on her legs, which she says is part of her chronic diagnosis of vasculitis. Cool and dry. HEAD: Atraumatic. Normocephalic. No temporal or scalp tenderness. EYES: Pupils equal round and reactive. Extraocular motions intact. No scleral icterus. No injection or drainage. ENT: Nose without bleeding, purulent drainage or septal hematoma. Throat without erythema, tonsillar hypertrophy or exudate. Uvula midline. Airway patent. NECK: Trachea midline. No JVD or lymphadenopathy. Supple, nontender, no meningeal signs. CARDIOVASCULAR: Regular rate and rhythm without murmurs, gallops, or rubs. RESPIRATORY: Marketed wheezing bilaterally. No rales. No rhonchi. GASTROINTESTINAL: Abdomen soft, non-tender, nondistended. No hepato-splenomegaly , or palpable masses. No guarding. MUSCULOSKELETAL: Extremities without clubbing, cyanosis, or edema. No joint tenderness, effusion, or edema noted. No calf tenderness. Negative Homans sign bilaterally. NEUROLOGICAL: Awake and alert. Cranial nerves II through XII intact. Motor and sensory grossly within normal limits. Five out of 5 muscle strength in all muscle groups. Normal speech. Laboratory Laboratory Tests Test 09/05/17 07:30 09/05/17 12:40 White Blood Count 9.9 Red Blood Count 5.67 Hemoglobin 15.3 Hematocrit 44.6 Mean Corpuscular Volume 78.7 Mean Corpuscular Hemoglobin 27.0 Mean Corpuscular Hemoglobin Concent 34.3 Red Cell Distribution Width 17.0 Platelet Count 263 Mean Platelet Volume 8.4 Neutrophils (%) (Auto) 74.6 Lymphocytes (%) (Auto) 21.4 Monocytes (%) (Auto) 1.9 Eosinophils (%) (Auto) 1.6 Basophils (%) (Auto) 0.5 Neutrophils # (Auto) 7.4 Lymphocytes # (Auto) 2.1 Monocytes # (Auto) 0.2 Eosinophils # (Auto) 0.2 Basophils # (Auto) 0.0 CBC Comment DIFF FINAL Differential Comment Blood Urea Nitrogen 14 Creatinine 0.94 Random Glucose 174 Total Protein 8.3 Albumin 3.8 Calcium Level 8.9 Alkaline Phosphatase 110 Aspartate Amino Transf (AST/SGOT) 18 Alanine Aminotransferase (ALT/SGPT) 24 Total Bilirubin 0.5 Sodium Level 137 Potassium Level 3.5 Chloride Level 99 Carbon Dioxide Level 29.0 Anion Gap 9 Estimat Glomerular Filtration Rate 64 Troponin I LESS THAN 0.02 B-Type Natriuretic Peptide LESS THAN 2 Urine Opiates Screen POS Urine Barbiturates Screen NEG Urine Amphetamines Screen NEG Urine Benzodiazepines Screen NEG Urine Cocaine Screen NEG Urine Cannabinoids Screen NEG Date/Time Source Procedure Growth Status 09/05/17 07:30 Nasal Washing Influenza Types A,B Antigen (MARGIE) - Final NEGATIVE FOR FLU A AND B ANTIGEN.... Complete Result Diagram: 2/3/18 0730 2/3/18 0730 Caprini VTE Risk Assessment Caprini VTE Risk Assessment: Mod/High Risk (score >= 2) Caprini Risk Assessment Model Point Value = 1 Point Value = 2 Point Value = 3 Point Value = 5 Age 41-60 Minor surgery BMI > 25 kg/m2 Swollen legs Varicose veins or History of unexplained or recurrent spontaneous Oral contraceptives or hormone replacement Sepsis (< 1 month) Serious lung disease, including pneumonia (< 1 month) Abnormal pulmonary function Acute myocardial infarction Congestive heart failure (< 1 month) History of inflammatory bowel disease Medical patient at bed rest Age 61-74 Arthroscopic surgery Major open surgery (> 45 min) Laparoscopic surgery (> 45 min) Malignancy Confined to bed (> 72 hours) Immobilizing plaster cast Central venous access Age >= 75 History of VTE Family history of VTE Factor V Leiden Prothrombin [id number] Lupus anticoagulant Anticardiolipin antibodies Elevated serum homocysteine Heparin-induced thrombocytopenia Other congenital or acquired thrombophilia Stroke (< 1 month) Elective arthroplasty Hip, pelvis, or leg fracture Acute spinal cord injury (< 1 month) Prophylaxis Regimen Total Risk Factor Score Risk Level Prophylaxis Regimen 0-1 Low Early ambulation 2 Moderate Order ONE of the following: *Sequential Compression Device (SCD) *Heparin 5000 units SQ BID 3-4 Higher Order ONE of the following medications: *Heparin 5000 units SQ TID *Enoxaparin/Lovenox 40 mg SQ daily (WT < 150 kg, CrCl > 30 mL/min) *Enoxaparin/Lovenox 30 mg SQ daily (WT < 150 kg, CrCl > 10-29 mL/min) *Enoxaparin/Lovenox 30 mg SQ BID (WT < 150 kg, CrCl > 30 mL/min) AND/OR *Sequential Compression Device (SCD) 5 or more Highest Order ONE of the following medications: *Heparin 5000 units SQ TID (Preferred with Epidurals) *Enoxaparin/Lovenox 40 mg SQ daily (WT < 150 kg, CrCl > 30 mL/min) *Enoxaparin/Lovenox 30 mg SQ daily (WT < 150 kg, CrCl > 10-29 mL/min) *Enoxaparin/Lovenox 30 mg SQ BID (WT < 150 kg, CrCl > 30 mL/min) AND *Sequential Compression Device (SCD) Assessment and Plan Assessment and Plan //Acute COPD exacerbation. = Differential would also include angioedema = Improved with IV Solu-Medrol, DuoNeb's. = Chest x-ray with no acute findings. Significant wheezing on exam. = Could be hypersensitivity pneumonitis, secondary to recent antibiotics. Patient has completed antibiotics. = Due to severe onset of shortness breath, will continue to watch. Will taper to by mouth prednisone. Continue duo nebs, continue azithromycin. Start Singulair. Start Claritin. Pulmonology consulted. Recommend follow-up with lock and dam equipment repairer as outpatient. C3, C4, total complement ordered due to possibility of angina edema. = Oxygen as needed. = Could also be exacerbated by ibuprofen. Would recommend against any NSAIDs. //Chronic pain. Continue home pain meds. //Depression. No SI. Continue home Cymbalta. //Labial abscess status post incision and drainage. Status post course of Bactrim completed yesterday. Continue wet to dry dressings. //Prophylaxis. Lanoxin. Discussed Condition With Patient, nurse, ED physician. Mahendra Barboza MD Sep 05, 2017 16:15
[2017-09-05 16:27] LABS: COMPLEMENT C3 153 MG/DL (90-180); COMPLEMENT C4 27 MG/DL (10-40)
--- NOTE | 2017-09-05 17:19 | MB ---
cc: REED MCBRIDE DATE OF CONSULTATION 09/05/17 REASON FOR CONSULTATION COPD, asthma component, exacerbation. HISTORY OF PRESENT ILLNESS The patient is a 47-year-old female recently discharged from the hospital after vulvar abscess surgery. The patient comes through the emergency room complaining of waking up with facial swelling, itching and rash. The only medication she has recently taken was Bactrim which she mentions she has taken in the past. She is on steroid therapy at present. She does have a cough for the last two days without expectoration and chest wheezing. She denies history of fever, chills or hemoptysis. PAST MEDICAL HISTORY 1. Chronic obstructive pulmonary disease, asthma component. 2. Livedoid vasculopathy 3. Remote history of seizure disorder, not at present 4. Chronic back pain on opiates. FAMILY HISTORY Noncontributory. SOCIAL HISTORY Used to smoke, stopped a year and a half ago. Does not drink any alcohol. No TB. No industrial exposure. REVIEW OF SYSTEMS A 12-point review of systems as per HPI and past history, otherwise, negative. MEDICATIONS At home, 1. Cymbalta 2. Prednisone 20 mg daily. 3. Symbicort. 4. Dilaudid 5. Recently Bactrim as above. 6. DuoNeb. PHYSICAL EXAMINATION GENERAL: The patient is alert. VITAL SIGNS: Temperature 98, pulse 80, respirations 18, blood pressure 130/70. HEENT: Exam unremarkable. Eyes without icterus. NECK: Without adenopathy, thyroid enlargement. CHEST: Scattered wheeze bilaterally. CARDIAC: PMI distant. S1, S2 audible, no murmur, no rub. ABDOMEN: Lax, bowel sounds audible. EXTREMITIES: No clubbing, cyanosis or edema. LABORATORY DATA White count 9.9, hemoglobin 15, platelets 263,000. IMPRESSION 1. COPD exacerbation 2. Allergic reaction, cause not obvious PLAN The patient will be given oxygen therapy as needed. Bronchodilators and IV steroids continued. Should she improve enough, may be discharged and followed as an outpatient. However, if her wheezing persists, she may need further hospitalization. I do thank you for asking me to partake in Mrs. Scruggs's care. ADDENDUM The patient's chest x-ray is clear. Reed Mcbride MD WWW/ /3:53 PM /4:49 PM
[2017-09-05] MEDS: BUDESONIDE-FORMOTEROL 160/4.5 MCG INHALER INH SCH (20:51)
[2017-09-05] MEDS: predniSONE 20 MG TAB PO SCH (20:52)
[2017-09-05] MEDS: SODIUM CHLORIDE 0.9% FLUSH 10 ML FLUSH IV FLUSH SCH (20:52)
[2017-09-05] MEDS: HYDROmorphone HCL 4 MG TAB PO PRN (20:54)
[2017-09-05] MEDS ORDERED: MONTELUKAST SODIUM 10 MG TAB PO SCH (21:00)
[2017-09-06] MEDS: HYDROmorphone HCL 4 MG TAB PO PRN ×4 (01:11→13:06)
[2017-09-06] MEDS: RESP: ALBUTEROL 2.5 MG/IPRATROPIUM 0.5 MG NEB (SCH) NEB ×3 (03:18→10:34)
[2017-09-06 04:04] VITALS: BP 104/58; PULSE 88; RESP 17; TEMP 98.8; O2SAT 95
[2017-09-06 07:56] VITALS: BP 102/54; PULSE 85; RESP 18; TEMP 98; O2SAT 96
[2017-09-06] MEDS: SODIUM CHLORIDE 0.9% FLUSH 10 ML FLUSH IV FLUSH SCH (08:55)
[2017-09-06] MEDS: predniSONE 20 MG TAB PO SCH (08:56)
[2017-09-06] MEDS: BUDESONIDE-FORMOTEROL 160/4.5 MCG INHALER INH SCH (08:56)
[2017-09-06] MEDS ORDERED: LORATADINE 10 MG TAB PO SCH (09:00)
[2017-09-06] MEDS ORDERED: AZITHROMYCIN 250 MG TAB PO SCH (09:00)
[2017-09-06] MEDS ORDERED: DULoxetine HCl DR 30 MG CAP PO SCH (09:00)
[2017-09-06 10:34] VITALS: O2SAT 97
[2017-09-06] MEDS ORDERED: PRED20 PO (11:19)
[2017-09-06] MEDS ORDERED: AZIT250T3 PO (11:19)
[2017-09-06] MEDS ORDERED: CLAR10TA7 PO (11:19)
[2017-09-06 11:21] VITALS: BP 109/58; PULSE 95; RESP 18; TEMP 97.9; O2SAT 97
[2017-09-06] MEDS ORDERED: ALBU6.7H INH (11:31)
[2017-09-06] MEDS ORDERED: IPRASOL NEB (11:31)
[2017-09-06] MEDS ORDERED: ALBU.5I NEB (11:31)
--- NOTE | 2017-09-06 11:32 | HHI.PR ---
Subjective Remarks Follow-up visit COPD exacerbation. Patient seen and examined today. Reports she is doing much better compared to yesterday. On 2 L nasal cannula at bedside. Discussed with patient to try to take off the nasal cannula and see how she does and if she is better we'll plan to discharge her home with antibiotics and steroids. Denies chest pain, palpitations. Occasional shortness of breath and dyspnea reported. Denies fevers, chills, nausea, vomiting, diarrhea. Objective Vitals Vital Signs Date Time Temp Pulse Resp B/P (MAP) Pulse Ox O2 Delivery O2 Flow Rate FiO2 09/06/17 11:21 97.9 95 18 109/58 (75) 97 09/06/17 10:34 97 Nasal Cannula 2.00 09/06/17 07:56 98.0 85 18 102/54 (70) 96 09/06/17 04:04 98.8 88 17 104/58 (73) 95 09/06/17 02:15 22 09/05/17 23:30 98.6 96 18 108/56 (73) 95 09/05/17 20:38 98 Nasal Cannula 3.00 09/05/17 20:18 98.4 99 17 113/66 (82) 96 09/05/17 16:08 97.8 88 20 116/60 (78) 96 09/05/17 12:01 98.2 89 20 114/68 (83) 98 I/O 09/05/17 09/05/17 09/05/17 09/06/17 09/06/17 09/06/17 07:00 15:00 23:00 07:00 15:00 23:00 Intake Total 750 ml 500 ml Balance 750 ml 500 ml Intake Oral 750 ml 500 ml Result Diagram: 09/05/1772909/05/17729 Imaging Last Impressions Chest X-Ray 09/05/17718 Signed Impressions: Service Date/Time: Tuesday, September 05, 2017 07:27 - CONCLUSION: No acute disease. Masoud Orellana MD Objective Remarks GENERAL: This is a well-nourished, well-developed patient, in no apparent distress. SKIN: Warm and dry. HEENT: Normocephalic. Pupils equal round and reactive. Nose without bleeding. Airway patent. NECK: Trachea midline. No JVD. Supple. CARDIOVASCULAR: Regular rate and rhythm without murmurs, gallops, or rubs. RESPIRATORY: Moderate wheeze, rhonchi. GASTROINTESTINAL: Abdomen soft, non-tender, nondistended. Bowel Sounds normoactive x4. MUSCULOSKELETAL: Extremities without clubbing, cyanosis, or edema. NEUROLOGICAL: Awake and alert. Oriented to time, place, person. No focal neuro deficit. Moves all extremities. Normal speech. A/P Problem List: (1) Abscess of groin, right ICD Code: L02.214 - Cutaneous abscess of groin Status: Acute (2) Abscess of labia ICD Code: N76.4 - Abscess of vulva (3) COPD exacerbation ICD Code: J44.1 - Obstructive chronic bronchitis with exacerbation Status: Acute Assessment and Plan Patient is a 47-year-old female with a history of COPD, recent groin abscess incision and drainage last month, having completed a course of Bactrim. Acute COPD exacerbation - Patient also has some angioedema reported yesterday, Benadryl was taken has improved. - IV Solu-Medrol to 1 nebs were given - Continue azithromycin by mouth, continue prednisone 20 mg twice a day times total of 5 days, Lortadine - Walk test for O2 - Patient was seen by Dr. Erendira Krishna, segment producer, recommends continued bronchodilators and steroids, may discharge if improved - Patient continues to have moderate wheezing. We'll continue with current treatment. Chronic pain - Continue home medication Depression - Continue Cymbalta Labial abscess status post I&D - Continue wound care. Patient status post Bactrim use DVT prop Lovenox Addendum O2 walk test >92% on RA Patient condition has improved and she has been walking around the unit without distress. All her medications have been refilled. She has a bluecard that she will take to outpatient pharmacy to get all her prescriptions. Tolerated diet. Wound care dressing has been done by nursing. Discharge patient to home Condition on discharge: Improved Regular Diet as tolerated Ad Clementine activity Rx written: Continue home medications Azithromycin 250 mg daily 3 tablets Claritin 10 mg by mouth daily Singulair 10 mg daily at bedtime Prednisone 20 mg twice a day 5 days Continue with nebulizer treatments Follow-up with primary care physician Follow up with Pulmonology Dr. Srinivasan Follow-up with GEOSCIENCE PROFESSOR for continued wound care Discharge Planning Plan to discharge home if improved with treatment. Improved. Plan to DC home today. Stacey Miles Sep 06, 2017 11:32
[2017-09-06] MEDS ORDERED: MONT10TA4 PO (11:48)
--- NOTE | 2017-09-06 12:46 | EKG ---
Date Performed: 09/05/2017 Time Performed: 07:40:54 PTAGE: 47 years EKG: SINUS TACHYCARDIA ABNORMAL RHYTHM ECG Compared to PREVIOUS TRACING , heart rate is somewhat slower and PVCs no longer present. PREVIOUS TRA CIN09/05/2017 06.38 DOCTOR: Thomas Cortés Interpretating Date/Time 09/06/2017 12:44:04
[2017-09-06 13:19] VITALS: O2SAT 95
== END 2017-09-06 15:39 | disposition home or self-care (01) ==
LOC: NEPC 06:34 → NEDA 09:21 → INTOOBSV 09:21 → NEPFCDU 09:57
PROVIDERS: ADMIT Family Medicine; ATTEND Family Medicine
DX: J44.1 Chronic obstructive pulmonary disease with (acute) exacerbation (principal); G89.29 Other chronic pain; T78.40XA Allergy, unspecified, initial encounter; I49.3 Ventricular premature depolarization; R00.0 Tachycardia, unspecified; R22.0 Localized swelling, mass and lump, head; R21 Rash and other nonspecific skin eruption; R94.31 Abnormal electrocardiogram [ECG] [EKG]; N76.4 Abscess of vulva; R05 Cough; R09.82 Postnasal drip; Z79.899 Other long term (current) drug therapy; F32.9 Major depressive disorder, single episode, unspecified; Z79.82 Long term (current) use of aspirin; Z87.891 Personal history of nicotine dependence; Z79.891 Long term (current) use of opiate analgesic
CPT/HCPCS: 71045; 80053; 80307; 83880; 84484; 85025; 86160; 87804; 93005; 94002; 94640; 94664; 96372; 96374; 96375; 96376; 99285; G0378; J1650; J2060; J2920; J2930; J7512

== ENCOUNTER 2017-10-30 20:18 | Inpatient (IN) | payer SELFPAY ==
[~2017-10-30] VITALS: Ht 167.6 cm; Wt 95.9 kg
[~2017-10-30 20:18] MED LIST changes: +AZIT250T3 PO; -BACT800T5 PO; +CLAR10TA7 PO; -IBUP-232 PO; +MONT10TA4 PO
[2017-10-30 20:26] VITALS: BP 161/95; PULSE 126; RESP 34; TEMP 99.7; O2SAT 95
[2017-10-30] MEDS ORDERED: KETOROLAC TROMETHAMINE 60 MG/2 ML (IM) VIAL IM ONE (20:30)
[2017-10-30] MEDS ORDERED: DEXAMETHASONE SOD PHOS 4 MG/ML VIAL IM ONE (20:30)
--- NOTE | 2017-10-30 20:38 | PD ---
HPI Chief Complaint: Respiratory Distress Time Seen by Provider: 20:26 Travel History International Travel<30 days: No Contact w/Intl Traveler<30days: No Traveled to known affect area: No History of Present Illness HPI 47-year-old female complains of low back pain and shortness of breath. Patient has history of chronic low back pain and on Dilaudid for pain. Patient states that she has increased short of breath today because of the back pain. Patient has history of COPD. EMS was called. Patient was giving albuterol treatment. Patient refused IV access. Patient was transported to the ED for evaluation. Patient denies any fever chills. Patient has nebulizer at home. Patient denies any recent injury. Patient has history of vasculitis. PFS Past Medical History Anemia: Yes Arthritis: Yes Asthma: Yes Autoimmune Disease: Yes (Livedoid vasculitis) Blood Disorders: No Anxiety: Yes Depression: Yes Heart Rhythm Problems: No Cancer: No Cardiac Catheterization: No Cardiovascular Problems: Yes High Cholesterol: No Chemotherapy: No Chest Pain: Yes Congestive Heart Failure: No COPD: Yes Cerebrovascular Accident: No Diabetes: No Diminished Hearing: No Endocrine: No GERD: Yes Genitourinary: Yes Hiatal Hernia: No Hypertension: No Immune Disorder: Yes Implanted Vascular Access Dvce: Yes Kidney Stones: No Musculoskeletal: Yes (healed ulcers, vascular disease) Neurologic: Yes (neuropathy) Psychiatric: Yes Reproductive: No Respiratory: Yes (COPD) Integumentary: Yes (LIVEDO VASCULITIS) Immunizations Current: Yes Migraines: No Pneumonia: Yes Radiation Therapy: No Renal Failure: No Seizures: No Sickle Cell Disease: No Sleep Apnea: Yes Thyroid Disease: No Ulcer: Yes PNEUMOCCOCAL Vaccine (Year): 2 ?: Not Menopausal: Yes : 1 Para: 1 Miscarriage: 0 : 0 Past Surgical History Abdominal Surgery: No AICD: No Appendectomy: No Arteriovenous Shunt: No Body Medical Devices: plates and screws to left elbow Cardiac Surgery: No Section: Yes (1997) Cholecystectomy: No Coronary Artery Bypass Graft: No Ear Surgery: No Endocrine Surgery: No Eye Surgery: No Genitourinary Surgery: No Gynecologic Surgery: Yes (, CYST REMOVED FROM LABIA) Joint Replacement: No Oral Surgery: No Pacemaker: No Thoracic Surgery: No Tonsillectomy: Yes (T/A) Other Surgery: Yes (CYST REMOVED FROM LEFT BREAST) Family History Family Myocardial Infarction: Yes (MOM AND DAD) Social History Alcohol Use: Yes (OCCASIONALLY) Tobacco Use: No Substance Use: No Allergies-Medications (Allergen,Severity, Reaction): Coded Allergies: No Known Allergies (Verified Adverse Reaction, Unknown, 09/05/17) Reported Meds & Prescriptions Reported Meds & Active Scripts Active Montelukast (Montelukast Sodium) 10 Mg Tab 10 Mg PO HS Duoneb (Ipratropium-Albuterol Neb) 0.5-2.5 Mg/3 Ml Neb 1 Ampule NEB Q8HR PRN q8hrs schedules x 3-4 days then as needed Proventil Hfa 6.7 GM Inh (Albuterol Sulfate) 90 Mcg/Act Aer 2 Puff INH Q4-6H PRN Albuterol Neb (Albuterol Sulfate) 2.5 Mg/0.5 Ml Neb 2.5 Mg NEB TID NEB PRN Note: The Albuterol Sulfate Inhalation Solution is concentrated and must be diluted. Read complete instructions carefully before using. Prednisone 20 Mg Tab 20 Mg PO BID Azithromycin 250 Mg Tab 250 Mg PO DAILY Claritin (Loratadine) 10 Mg Tablet 10 Mg PO DAILY Wound Vac (Device) 1 Ea Ea Ea .ROUTE DIRECTED home health to come and change thursday and thursday, thursday to be done at [place] [facility] Sherry SAL (Duloxetine HCl) 30 Mg Capdr 30 Mg PO DAILY 30 Days Symbicort Inh (Budesonide/Formoterol Fumarate) 160-4.5 Mcg/Act Aero 2 Puff INH Q12HR Aspirin 325 Mg Tab 325 Mg PO DAILY Dilaudid (Hydromorphone HCl) 4 Mg Tab 4 Mg PO Q4-6H PRN Reported Ibuprofen 800 Mg Tab 800 Mg PO Q6HR PRN Review of Systems General / Constitutional: No: Fever Eyes: No: Visual changes HENT: No: Headaches Cardiovascular: No: Chest Pain or Discomfort Respiratory: Positive: Shortness of Breath Gastrointestinal: No: Abdominal Pain Genitourinary: No: Dysuria Musculoskeletal: No: Pain Skin: No Rash Neurologic: No: Weakness Psychiatric: No: Depression Endocrine: No: Polydipsia Hematologic/Lymphatic: No: Easy Bruising Physical Exam Narrative GENERAL: Well-nourished, well-developed patient. SKIN: Focused skin assessment warm/dry. HEAD: Normocephalic. EYES: No scleral icterus. No injection or drainage. NECK: Supple, trachea midline. No JVD or lymphadenopathy. CARDIOVASCULAR: Regular rate and rhythm without murmurs, gallops, or rubs. RESPIRATORY: Breath sounds equal bilaterally. No accessory muscle use. Patient has moderate expiratory wheezes bilaterally. No rhonchi. GASTROINTESTINAL: Abdomen soft, non-tender, nondistended. MUSCULOSKELETAL: No cyanosis, or edema. BACK: Nontender without obvious deformity. No CVA tenderness. Neurologic exam normal. Data Data Last Documented VS Vital Signs Date Time Temp Pulse Resp B/P (MAP) Pulse Ox O2 Delivery O2 Flow Rate FiO2 10/30/17 20:34 100 Simple Mask 7.00 10/30/17 20:26 99.7 126 34 161/95 (117) Orders Orders Vascular Access Team Consult/P PRN (10/30/17 20:28) Vascular Poc Ultrasound (10/30/17 ) Ketorolac Inj (Toradol Inj) (10/30/17 20:30) Orphenadrine Inj (Norflex Inj) (10/30/17 20:30) Dexamethasone Inj (Decadron Inj) (10/30/17 20:30) Complete Blood Count With Diff (10/30/17 20:32) Basic Metabolic Panel (Bmp) (10/30/17 20:32) Iv Access Insert/Monitor (10/30/17 20:32) Ecg Monitoring (10/30/17 20:32) Oximetry (10/30/17 20:32) Oxygen Administration (10/30/17 20:32) Chest, Pa & Lat (10/30/17 20:32) Sodium Chloride 0.9% Flush (Ns Flush) (10/30/17 20:45) Albuterol-Ipratropium Neb (Duoneb Neb) (10/30/17 20:45) Dexamethasone Inj (Decadron Inj) (10/30/17 21:00) Ketorolac Inj (Toradol Inj) (10/30/17 21:00) Labs Laboratory Tests Test 10/30/17 21:00 White Blood Count 13.3 TH/MM3 Red Blood Count 5.37 MIL/MM3 Hemoglobin 12.6 GM/DL Hematocrit 40.0 % Mean Corpuscular Volume 74.5 FL Mean Corpuscular Hemoglobin 23.5 PG Mean Corpuscular Hemoglobin Concent 31.6 % Red Cell Distribution Width 16.3 % Platelet Count 160 TH/MM3 Mean Platelet Volume 10.1 FL Neutrophils (%) (Auto) 89.3 % Lymphocytes (%) (Auto) 4.0 % Monocytes (%) (Auto) 6.2 % Eosinophils (%) (Auto) 0.1 % Basophils (%) (Auto) 0.4 % Neutrophils # (Auto) 11.9 TH/MM3 Lymphocytes # (Auto) 0.5 TH/MM3 Monocytes # (Auto) 0.8 TH/MM3 Eosinophils # (Auto) 0.0 TH/MM3 Basophils # (Auto) 0.1 TH/MM3 CBC Comment DIFF FINAL Differential Comment Blood Urea Nitrogen 12 MG/DL Creatinine 0.65 MG/DL Random Glucose 126 MG/DL Calcium Level 9.0 MG/DL Sodium Level 134 MEQ/L Potassium Level 3.9 MEQ/L Chloride Level 98 MEQ/L Carbon Dioxide Level 28.2 MEQ/L Anion Gap 8 MEQ/L Estimat Glomerular Filtration Rate 98 ML/MIN MDM Medical Decision Making Medical Screen Exam Complete: Yes Emergency Medical Condition: Yes Interpretation(s) Last Impressions Chest X-Ray 10/30/172031 Signed Impressions: Service Date/Time: Monday, October 30, 2017 21:48 - CONCLUSION: No acute disease. Domenic Davis MD 22:20 PM. CBC WBC 13.3. Hemoglobin 12.6 hematocrit 40.0. MCV 74.5. 89 neutrophil. Sodium 134. Glucose 126. Differential Diagnosis Differential diagnosis including acute exacerbation COPD, acute exacerbation low back pain. Narrative Course 47-year-old female with acute exacerbation of low back pain and shortness of breath. History of COPD. Patient was given albuterol treatment by EMS. Decadron 8 mg IV. Albuterol with Atrovent unit dose treatment 3. Toradol 30 mg IV. Norflex 60 mg IM. Patient's O2 saturation in the 80s after treatment. Patient was given Ventimask a 5% O2. Diagnosis Primary Impression: COPD with acute exacerbation Additional Impression: Chronic back pain Qualified Codes: M54.5 - Low back pain; G89.29 - Other chronic pain Admitting Information Admitting Physician Requests: Admit Jon Byrd MD Oct 30, 2017 20:38
[2017-10-30] MEDS ORDERED: SODIUM CHLORIDE 0.9% FLUSH 10 ML FLUSH IVF PRN (20:45)
[2017-10-30] MEDS: ORPHENADRINE INJ 60 MG/2 ML AMP IM ONE ×2 (20:45→20:49)
[2017-10-30] MEDS ORDERED: DEXAMETHASONE SOD PHOS 4 MG/ML VIAL IV PUSH ONE (21:00)
[2017-10-30] MEDS ORDERED: KETOROLAC TROMETHAMINE 30 MG/ML (IVP) VIAL IV PUSH ONE (21:00)
[2017-10-30] MEDS: RESP: ALBUTEROL 2.5 MG/IPRATROPIUM 0.5 MG NEB (SCH) INH ×2 (21:09→21:10)
[2017-10-30 21:43] LABS: AUTOMATED NEUTROPHIL # 11.9 TH/MM3 (1.8-7.7); BASOPHIL # 0.1 TH/MM3 (0-0.2); BASOPHIL % 0.4 % (0.0-2.0); EOSINOPHIL % 0.1 % (0.0-4.0); HEMOGLOBIN 12.6 GM/DL (11.6-15.3); LYMPHOCYTE # 0.5 TH/MM3 (1.0-4.8); MEAN CELL VOLUME 74.5 FL (80.0-100.0); MEAN CORPUSCULAR HEMOGLOBIN 23.5 PG (27.0-34.0); MEAN CORPUSCULAR HGB CONC 31.6 % (32.0-36.0); MEAN PLATELET VOLUME 10.1 FL (7.0-11.0); MONO % 6.2 % (0.0-8.0); MONOCYTE # 0.8 TH/MM3 (0-0.9); NEUT % 89.3 % (16.0-70.0); PLATELET COUNT 160 TH/MM3 (150-450); RED BLOOD COUNT 5.37 MIL/MM3 (4.00-5.30); RED CELL DISTRIBUTION WIDTH 16.3 % (11.6-17.2); WHITE BLOOD COUNT 13.3 TH/MM3 (4.0-11.0)
--- NOTE | 2017-10-30 22:07 | RADRPT ---
EXAM DATE/TIME: 10/30/2017 21:48 [place] COMPARISON: CHEST PA & LAT, August 15, 2017, 11:03. INDICATIONS : Difficulty breathing. MEDICAL HISTORY : Chronic obstructive pulmonary disease. SURGICAL HISTORY : None. ENCOUNTER: Initial ACUITY: 2 days PAIN SCORE: 0/10 LOCATION: Bilateral chest FINDINGS: PA and lateral views of the chest demonstrate the lungs to be symmetrically aerated without evidence of mass, infiltrate or effusion. The cardiomediastinal contours are unremarkable. Osseous structure s are intact. CONCLUSION: No acute disease. Domenic Davis MD on October 30, 2017 at 22:05 Board Certified Radiologist. This report was verified electronically.
[2017-10-30 22:08] LABS: BICARBONATE 28.2 MEQ/L (21.0-32.0); CREATININE 0.65 MG/DL (0.50-1.00)
--- NOTE | 2017-10-30 22:36 | HHI.HP ---
[facility] Service [facility] Primary Care Physician No Primary Care Physician Admission Diagnosis Acute exacerbation COPD. Chronic low back pain. Diagnoses: (1) COPD (chronic obstructive pulmonary disease) Diagnosis: Principal (2) Hypoxia Diagnosis: Principal (3) Chronic back pain Diagnosis: Principal Travel History International Travel<30 Days: No Contact w/Intl Traveler <30 Da: No Traveled to Known Affected Are: No History of Present Illness This is a 47-year-old female with a PMH of COPD, Anxiety, Depression and Chronic Back Pain was brought to the ER by EMS secondary to significant SOB and back pain. States symptoms have been ongoing for 2-3 days, reports non- productive cough which is exacerbating her back pain. Pain is severe, constant , worse w/ deep breath, 9/10. On Dilaudid PO at home, does not wish to escalate to IV. Denies fever, chills or chest pain. On arrival, BP 161/95, HR 126, O2 sat 95% on 7L. Temp 99.7. WBC 13.3. Chemistry essentially unremarkable. CXR with no acute findings. S/p Decadron and DuoNeb in ER in addition to Toradol. While in ER, pt w/ O2 sat 88% on RA. Review of Systems Except as stated in HPI: all other systems reviewed are Neg ROS: 14 point review of systems otherwise negative. Past Family Social History Past Medical History PMH: COPD, Anxiety, Depression and Chronic Back Pain Past Surgical History PAST SURGICAL HISTORY: Left Elbow, , Tonsillectomy Allergies: Coded Allergies: No Known Allergies (Verified Adverse Reaction, Unknown, 09/05/17) Family History PAST FAMILY HISTORY: Reviewed. No h/o DM or CAD Social History PAST SOCIAL HISTORY: Occasional alcohol. Negative for tobacco or drugs. Physical Exam Vital Signs Vital Signs Date Time Temp Pulse Resp B/P (MAP) Pulse Ox O2 Delivery O2 Flow Rate FiO2 10/30/17 20:34 100 Simple Mask 7.00 10/30/17 20:26 99.7 126 34 161/95 (117) 95 Physical Exam PE: GENERAL: Pleasant middle-aged white female in mild distress due to SOB, receiving DuoNeb. +non-productive cough HEENT: PERRLA, EOMI. No scleral icterus or conjunctival pallor. No lid lag or facial droop. CARDIOVASCULAR: Regular rate and rhythm. No obvious murmurs to auscultation. No chest tenderness to palpation. RESPIRATORY: No obvious rhonchi. + wheezing. Clear to auscultation. Breath sounds equal bilaterally. GASTROINTESTINAL: Abdomen soft, non-tender, nondistended. BS normal. MUSCULOSKELETAL: Extremities without clubbing, cyanosis, or edema. No obvious deformities. NEUROLOGICAL: Awake, alert and oriented x4. No focal neurologic deficits. Moving both upper and lower extremities spontaneously. Laboratory Laboratory Tests Test 10/30/17 21:00 White Blood Count 13.3 Red Blood Count 5.37 Hemoglobin 12.6 Hematocrit 40.0 Mean Corpuscular Volume 74.5 Mean Corpuscular Hemoglobin 23.5 Mean Corpuscular Hemoglobin Concent 31.6 Red Cell Distribution Width 16.3 Platelet Count 160 Mean Platelet Volume 10.1 Neutrophils (%) (Auto) 89.3 Lymphocytes (%) (Auto) 4.0 Monocytes (%) (Auto) 6.2 Eosinophils (%) (Auto) 0.1 Basophils (%) (Auto) 0.4 Neutrophils # (Auto) 11.9 Lymphocytes # (Auto) 0.5 Monocytes # (Auto) 0.8 Eosinophils # (Auto) 0.0 Basophils # (Auto) 0.1 CBC Comment DIFF FINAL Differential Comment Blood Urea Nitrogen 12 Creatinine 0.65 Random Glucose 126 Calcium Level 9.0 Sodium Level 134 Potassium Level 3.9 Chloride Level 98 Carbon Dioxide Level 28.2 Anion Gap 8 Estimat Glomerular Filtration Rate 98 Result Diagram: 10/30/17209910/30/172099 Caprini VTE Risk Assessment Caprini VTE Risk Assessment: No/Low Risk (score <= 1) Caprini Risk Assessment Model Point Value = 1 Point Value = 2 Point Value = 3 Point Value = 5 Age 41-60 Minor surgery BMI > 25 kg/m2 Swollen legs Varicose veins or History of unexplained or recurrent spontaneous Oral contraceptives or hormone replacement Sepsis (< 1 month) Serious lung disease, including pneumonia (< 1 month) Abnormal pulmonary function Acute myocardial infarction Congestive heart failure (< 1 month) History of inflammatory bowel disease Medical patient at bed rest Age 61-74 Arthroscopic surgery Major open surgery (> 45 min) Laparoscopic surgery (> 45 min) Malignancy Confined to bed (> 72 hours) Immobilizing plaster cast Central venous access Age >= 75 History of VTE Family history of VTE Factor V Leiden Prothrombin [id number] Lupus anticoagulant Anticardiolipin antibodies Elevated serum homocysteine Heparin-induced thrombocytopenia Other congenital or acquired thrombophilia Stroke (< 1 month) Elective arthroplasty Hip, pelvis, or leg fracture Acute spinal cord injury (< 1 month) Prophylaxis Regimen Total Risk Factor Score Risk Level Prophylaxis Regimen 0-1 Low Early ambulation 2 Moderate Order ONE of the following: *Sequential Compression Device (SCD) *Heparin 5000 units SQ BID 3-4 Higher Order ONE of the following medications: *Heparin 5000 units SQ TID *Enoxaparin/Lovenox 40 mg SQ daily (WT < 150 kg, CrCl > 30 mL/min) *Enoxaparin/Lovenox 30 mg SQ daily (WT < 150 kg, CrCl > 10-29 mL/min) *Enoxaparin/Lovenox 30 mg SQ BID (WT < 150 kg, CrCl > 30 mL/min) AND/OR *Sequential Compression Device (SCD) 5 or more Highest Order ONE of the following medications: *Heparin 5000 units SQ TID (Preferred with Epidurals) *Enoxaparin/Lovenox 40 mg SQ daily (WT < 150 kg, CrCl > 30 mL/min) *Enoxaparin/Lovenox 30 mg SQ daily (WT < 150 kg, CrCl > 10-29 mL/min) *Enoxaparin/Lovenox 30 mg SQ BID (WT < 150 kg, CrCl > 30 mL/min) AND *Sequential Compression Device (SCD) Assessment and Plan Problem List: (1) COPD (chronic obstructive pulmonary disease) ICD Code: J44.9 - Chronic obstructive pulmonary disease Status: Chronic (2) Hypoxia ICD Code: R09.02 - Hypoxia Status: Acute (3) Chronic back pain ICD Code: M54.9 - Dorsalgia, unspecified; G89.29 - Other chronic pain Status: Acute Assessment and Plan A/P: 1. COPD: Chronic Respiratory Failure w/ Acute Exacerbation. Severe. + wheezing/cough/SOB. S/p Decadron and DuoNeb. Continue w/ Solu-Medrol, DuoNeb, Symbicort, Mucinex. CXR w/ no acute findings, images reviewed by me. Will start on Levaquin IV for atypical PNA in light of WBC and low-grade temp. 2. Hypoxia: O2 sat 95% on 7L on arrival, while in ER, O2 sat 88% on RA. Monitor O2. 3. Chronic Back Pain: w/ Acute Exacerbation due to cough. Resume home Dilaudid 4mg PO, pt declining IV medications at this time, wishes to continue w / home regimen. Start Valium prn for muscle spasm. 4. DVT Prophylaxis: SCD/Teds. 5. Social work for d/c planning as needed. 6. Case discussed w/ ER physician at length, labs/records/imaging reviewed by me. Physician Certification 2 Midnight Certification Type: Admission for Inpatient Services Order for Inpatient Services The services are ordered in accordance with Medicare regulations or non- Medicare payer requirements, as applicable. In the case of services not specified as inpatient-only, they are appropriately provided as inpatient services in accordance with the 2-midnight benchmark. Estimated LOS (days): 2 days is the estimated time the patient will need to remain in the hospital, assuming treatment plan goals are met and no additional complications. Post-Hospital Plan: Not yet determined Problem Qualifiers (1) Chronic back pain: Qualified Codes: M54.5 - Low back pain; G89.29 - Other chronic pain Camille Perkins MD Oct 30, 2017 22:36
[2017-10-30] MEDS ORDERED: ACETAMINOPHEN 325 MG TAB PO PRN (22:45)
[2017-10-30] MEDS ORDERED: SENNOSIDES 8.6 MG TAB PO PRN (22:45)
[2017-10-30] MEDS ORDERED: BISACODYL 10 MG SUPP RECTAL PRN (22:45)
[2017-10-30] MEDS ORDERED: RESP: ALBUTEROL 2.5 MG/IPRATROPIUM 0.5 MG NEB (PRN) NEB (22:45)
[2017-10-30] MEDS ORDERED: HYDROmorphone HCL PF 1 MG/ML VIAL IV PUSH PRN (22:45)
[2017-10-30] MEDS ORDERED: SODIUM CHLORIDE 0.9% FLUSH 10 ML FLUSH IV FLUSH PRN (22:45)
[2017-10-30] MEDS ORDERED: LACTULOSE SYRUP 20 GM/30 ML CUP PO PRN (22:45)
[2017-10-30] MEDS ORDERED: ONDANSETRON HCL 4 MG/2 ML VIAL IVP PRN (22:45)
[2017-10-30] MEDS ORDERED: MAGNESIUM HYDROXIDE SUSP 30 ML CUP PO PRN (22:45)
[2017-10-30] MEDS ORDERED: LEVOFLOXACIN 750 MG PREMIX INJ 150 ML IV SCH (23:00)
[2017-10-30] MEDS: DIAZEPAM 5 MG TAB PO PRN (23:21)
[2017-10-30 23:22] VITALS: BP 159/88
[2017-10-30 23:25] VITALS: O2SAT 95
[2017-10-30 23:30] VITALS: BP 117/63; PULSE 105; RESP 20; TEMP 98; O2SAT 97
[2017-10-30] MEDS: methylPREDNISolone SOD SUCC 40 MG/1 ML VIAL IV PUSH SCH (23:48)
[2017-10-30] MEDS: HYDROmorphone HCL 4 MG TAB PO PRN (23:49)
[2017-10-31] VITALS (12 sets, daily range): BP systolic 105–144; BP diastolic 57–73; PULSE 75–130; RESP 16–22; TEMP 97–101.9; O2SAT 92–99
[2017-10-31] MEDS: HYDROmorphone HCL 4 MG TAB PO PRN ×5 (03:44→20:14)
[2017-10-31] MEDS: methylPREDNISolone SOD SUCC 40 MG/1 ML VIAL IV PUSH SCH ×3 (05:44→15:49)
[2017-10-31] MEDS ORDERED: ORPHENADRINE INJ 60 MG/2 ML AMP IM ONE (06:15)
[2017-10-31] MEDS: DIAZEPAM 5 MG TAB PO PRN ×2 (06:53→15:48)
[2017-10-31] MEDS: RESP: ALBUTEROL 2.5 MG/IPRATROPIUM 0.5 MG NEB (SCH) NEB ×4 (07:39→20:00)
[2017-10-31] MEDS: DULoxetine HCl DR 30 MG CAP PO SCH (07:41)
[2017-10-31] MEDS: ASPIRIN 325 MG TAB PO SCH (07:41)
[2017-10-31] MEDS: guaiFENesin E.R. 600 MG TAB PO SCH ×2 (07:41→20:15)
[2017-10-31] MEDS: DOCUSATE SODIUM 50 MG/SENNA 8.6 MG TAB PO SCH ×2 (07:42→20:14)
[2017-10-31] MEDS: SODIUM CHLORIDE 0.9% FLUSH 10 ML FLUSH IV FLUSH SCH ×2 (07:43→20:15)
[2017-10-31] MEDS: BUDESONIDE-FORMOTEROL 160/4.5 MCG INHALER INH SCH ×2 (07:44→20:15)
--- NOTE | 2017-10-31 09:12 | HHI.PR ---
Subjective Remarks Follow-up for shortness of breath and low back pain Had low-grade fever this morning, still very short of breath, complaining of low back pain after a coughing fit, no history of fall. Patient does not have any oxygen at home. Ambulatory otherwise. Mildly tachycardic. Objective Vitals Vital Signs Date Time Temp Pulse Resp B/P (MAP) Pulse Ox O2 Delivery O2 Flow Rate FiO2 10/31/17 08:00 101.9 130 22 118/73 (88) 93 10/31/17 07:55 Nasal Cannula 4.00 10/31/17 07:51 125 10/31/17 07:35 94 Venturi Mask 6.00 50 10/31/17 07:35 93 Venturi Mask 50 10/31/17 04:40 98.3 92 20 120/57 (78) 92 10/31/17 02:31 99 Venturi Mask 40 10/31/17 02:31 99 Venturi Mask 40 10/30/17 23:30 98.0 105 20 117/63 (81) 97 10/30/17 23:25 95 Venturi Mask 6.00 50 10/30/17 23:22 109 26 159/88 (111) 96 Venturi Mask 7.00 10/30/17 20:34 100 Simple Mask 7.00 10/30/17 20:26 99.7 126 34 161/95 (117) 95 I/O 10/30/17 10/30/17 10/30/17 10/31/17 10/31/17 10/31/17 07:00 15:00 23:00 07:00 15:00 23:00 Intake Total 240 ml Balance 240 ml Intake Oral 240 ml # Voids 2 # Bowel Movements 0 Result Diagram: 10/30/17209910/30/172099 Imaging Last Impressions Chest X-Ray 10/30/172031 Signed Impressions: Service Date/Time: Monday, October 30, 2017 21:48 - CONCLUSION: No acute disease. Domenic Davis MD Objective Remarks GENERAL: Pleasant middle-aged white female in mild distress due to SOB, cough with productive yellow sputum. HEENT: PERRLA, EOMI. No scleral icterus or conjunctival pallor. No lid lag or facial droop. CARDIOVASCULAR: Regular rhythm, borderline tachycardic. No obvious murmurs to auscultation. No chest tenderness to palpation. RESPIRATORY: Positive for wheezing, occasional rhonchi and crackles at the base. GASTROINTESTINAL: Abdomen soft, non-tender, nondistended. BS normal. MUSCULOSKELETAL: Extremities without clubbing, cyanosis, trace edema. No obvious deformities. NEUROLOGICAL: Awake, alert and oriented x4. No focal neurologic deficits. Moving both upper and lower extremities spontaneously. A/P Problem List: (1) COPD (chronic obstructive pulmonary disease) ICD Code: J44.9 - Chronic obstructive pulmonary disease Status: Chronic (2) Hypoxia ICD Code: R09.02 - Hypoxia Status: Acute (3) Chronic back pain ICD Code: M54.9 - Dorsalgia, unspecified; G89.29 - Other chronic pain Status: Acute Assessment and Plan This is a 47-year-old female with history of COPD presenting with shortness of breath. Acute hypoxic respiratory failure secondary to COPD exacerbation-patient does not have any oxygen at home, continue steroids at present dose, add antitussives , continue Levaquin, chest x-ray is unremarkable but with low-grade fever and leukocytosis. If continues to have fever, escalate antibiotics. Check sputum and blood culture. Check rapid flu. Doubt Legionella. Patient may need oxygen on discharge, currently on 4 L. Ambulatory. Because of presence of crackles, will give a dose of Lasix. No history of cardiac pathology. Check BMP tomorrow. Low back pain-acute, secondary to spasms, also has chronic low back pain, continue patient's home medications, add Flexeril. On Dilaudid at home and volume. Lovenox for DVT prophylaxis Ambulatory. Discharge Planning Discharge once medically ready, in 2 days or more, might need oxygen on discharge. Problem Qualifiers (1) Chronic back pain: Qualified Codes: M54.5 - Low back pain; G89.29 - Other chronic pain Kb Linton MD Oct 31, 2017 09:12
[2017-10-31] MEDS ORDERED: FUROSEMIDE 20 MG/2 ML VIAL IV PUSH ONE (10:45)
[2017-10-31] MEDS ORDERED: PILL SPLITTER OTHER PRN (11:00)
[2017-10-31] MEDS: BENZONATATE 100 MG CAP PO SCH ×2 (11:37→15:48)
[2017-10-31] MEDS: CYCLOBENZAPRINE HCL 10 MG TAB PO PRN ×2 (11:37→20:14)
[2017-10-31] MEDS: ENOXAPARIN SODIUM 30 MG/0.3 ML SYRINGE SQ SCH (11:38)
[2017-10-31 19:22] LABS: AUTOMATED NEUTROPHIL # 14.2 TH/MM3 (1.8-7.7); BASOPHIL # 0.1 TH/MM3 (0-0.2); BASOPHIL % 0.6 % (0.0-2.0); HEMOGLOBIN 11.6 GM/DL (11.6-15.3); LYMPH % 3.8 % (9.0-44.0); LYMPHOCYTE # 0.6 TH/MM3 (1.0-4.8); MEAN CELL VOLUME 74.7 FL (80.0-100.0); MEAN CORPUSCULAR HEMOGLOBIN 24.1 PG (27.0-34.0); MEAN CORPUSCULAR HGB CONC 32.2 % (32.0-36.0); MEAN PLATELET VOLUME 9.5 FL (7.0-11.0); MONO % 4.9 % (0.0-8.0); MONOCYTE # 0.8 TH/MM3 (0-0.9); NEUT % 90.7 % (16.0-70.0); PLATELET COUNT 131 TH/MM3 (150-450); RED BLOOD COUNT 4.82 MIL/MM3 (4.00-5.30); RED CELL DISTRIBUTION WIDTH 16.5 % (11.6-17.2); WHITE BLOOD COUNT 15.6 TH/MM3 (4.0-11.0)
[2017-10-31 19:44] LABS: ALBUMIN 2.7 GM/DL (3.4-5.0); AST (GOT) 17 U/L (15-37); BLOOD UREA NITROGEN 17 MG/DL (7-18); CALCIUM 8.8 MG/DL (8.5-10.1); CHLORIDE 99 MEQ/L (98-107); CREATININE 0.61 MG/DL (0.50-1.00); GLOMERULAR FILTRATION RATE 105 ML/MIN (>89); GLUCOSE,RANDOM 168 MG/DL (74-106); SODIUM (NA) 135 MEQ/L (136-145)
[2017-10-31 19:45] LABS: ALT (GPT) 22 U/L (10-53)
[2017-10-31 19:47] LABS: ALKALINE PHOSPHATASE 116 U/L (45-117); TOTAL BILIRUBIN ADULT 0.7 MG/DL (0.2-1.0); TOTAL PROTEIN 7.2 GM/DL (6.4-8.2)
[2017-10-31] MEDS: MONTELUKAST SODIUM 10 MG TAB PO SCH (20:14)
[2017-11-01] VITALS (8 sets, daily range): BP systolic 134–178; BP diastolic 64–90; PULSE 74–87; RESP 18–20; TEMP 97.3–98.8; O2SAT 92–96
[2017-11-01] MEDS: methylPREDNISolone SOD SUCC 40 MG/1 ML VIAL IV PUSH SCH ×4 (00:12→15:53)
[2017-11-01] MEDS: HYDROmorphone HCL 4 MG TAB PO PRN ×5 (02:22→21:42)
[2017-11-01] MEDS: DIAZEPAM 5 MG TAB PO PRN ×3 (02:22→21:47)
[2017-11-01] MEDS: CYCLOBENZAPRINE HCL 10 MG TAB PO PRN ×2 (06:07→16:10)
[2017-11-01] MEDS ORDERED: ORPHENADRINE INJ 60 MG/2 ML AMP IM ONE (06:15)
[2017-11-01] MEDS: RESP: ALBUTEROL 2.5 MG/IPRATROPIUM 0.5 MG NEB (SCH) NEB ×3 (08:00→16:00)
[2017-11-01] MEDS: DOCUSATE SODIUM 50 MG/SENNA 8.6 MG TAB PO SCH ×2 (09:15→21:41)
[2017-11-01] MEDS: BUDESONIDE-FORMOTEROL 160/4.5 MCG INHALER INH SCH ×2 (09:15→21:41)
[2017-11-01] MEDS: DULoxetine HCl DR 30 MG CAP PO SCH (09:15)
[2017-11-01] MEDS: LEVOFLOXACIN 750 MG TAB PO SCH (09:26)
[2017-11-01] MEDS: guaiFENesin E.R. 600 MG TAB PO SCH ×2 (09:26→21:41)
[2017-11-01] MEDS: BENZONATATE 100 MG CAP PO SCH ×3 (09:26→15:54)
[2017-11-01] MEDS: ASPIRIN 325 MG TAB PO SCH (09:26)
[2017-11-01] MEDS: SODIUM CHLORIDE 0.9% FLUSH 10 ML FLUSH IV FLUSH SCH ×2 (09:26→21:41)
[2017-11-01] MEDS: ENOXAPARIN SODIUM 30 MG/0.3 ML SYRINGE SQ SCH (11:05)
[2017-11-01] MEDS ORDERED: Vancomycin Consult Pharmacy 1 EA OTHER SCH (11:15)
[2017-11-01] MEDS ORDERED: VANCOMYCIN INJ 1,000 MG in SODIUM CHLOR 0.9% 250 ML INJ 250 ML IV SCH (11:15)
[2017-11-01 11:25] LABS: BICARBONATE 30.1 MEQ/L (21.0-32.0); CALCIUM 8.8 MG/DL (8.5-10.1); CREATININE 0.48 MG/DL (0.50-1.00)
--- NOTE | 2017-11-01 12:10 | HHI.PR ---
Subjective Remarks Patient seen and examined this morning. Temperature 97.3, pulse 80, respiratory rate 18, blood pressure 152/76, pulse ox 95 on 3 L nasal cannula. Blood cultures are growing positive MRSA will start the patient on IV vancomycin , consulting infectious disease, and due to history of Dilaudid use as home medication will obtain an echocardiogram to rule out endocarditis. Patient reports that she is feeling severe muscle spasms in her back that are radiating into her arms and legs and neck. Norflex is helped however nothing else seems to be improving this pain. The Dilaudid that she currently on reports is her home dose and it is not helping her much. Have agreed to continue the Norflex. Upon arriving to the room patient was sleeping and resting comfortably, however upon awaking and discussing she quickly starts complaining of pain. Objective Vitals Vital Signs Date Time Temp Pulse Resp B/P (MAP) Pulse Ox O2 Delivery O2 Flow Rate FiO2 11/01/17 11:41 97.3 80 18 152/76 (101) 95 11/01/17 11:36 Nasal Cannula 3.00 11/01/17 10:34 97 Nasal Cannula 4.00 11/01/17 07:56 98.8 84 18 166/83 (110) 93 11/01/17 07:30 87 11/01/17 04:08 97.9 82 18 134/64 (87) 93 11/01/17 00:22 74 10/31/17 23:21 97.3 75 18 121/65 (83) 97 10/31/17 20:00 87 10/31/17 19:35 Nasal Cannula 4.00 10/31/17 19:32 97.0 84 18 144/69 (94) 95 10/31/17 15:49 94 Nasal Cannula 4.00 10/31/17 15:49 97.9 81 16 117/66 (83) 94 I/O 10/31/17 10/31/17 10/31/17 11/01/17 11/01/17 11/01/17 07:00 15:00 23:00 07:00 15:00 23:00 Intake Total 840 ml 360 ml Balance 840 ml 360 ml Intake Oral 840 ml 360 ml # Voids 5 2 # Bowel Movements 0 0 Result Diagram: 10/31/17 1815 11/01/17 0918 Imaging Last Impressions Chest X-Ray 10/30/172031 Signed Impressions: Service Date/Time: Monday, October 30, 2017 21:48 - CONCLUSION: No acute disease. Domenic Davis MD Objective Remarks GEN: Well-developed, well-nourished patient. Lying in bed teary-eyed reports due to pain. Coughing during exam. CV: Regular rate and rhythm without obvious murmurs LUNGS: Normal respiratory effort. Expiratory wheezing and rales heard throughout bilaterally. GI: Soft, nontender, nondistended. No palpable masses. Bowel sounds WNL. EXT: No edema. NEURO/PSYCH: Afocal. Awake, alert, and oriented x3. Appropriate insight and judgment. Medications and IVs Current Medications Medications (Trade) Dose Ordered Sig/Juanpablo Route Start Time Stop Time Status Last Admin (SoluMEDROL INJ) 40 mg Q6HR IV PUSH 10/31/17 00:00 11/01/17 11:05 (Duoneb Neb) 1 ampule Q4HR WHILE AWAKE NEB NEB 10/31/17 08:00 10/31/17 17:39 (Duoneb Neb) 1 ampule Q2HR NEB PRN NEB 10/30/17 22:45 (Mucinex Er) 600 mg BID PO 10/31/17 09:00 11/01/17 09:26 (NS Flush) 2 ml UNSCH PRN IV FLUSH 10/30/17 22:45 (NS Flush) 2 ml BID IV FLUSH 10/31/17 09:00 11/01/17 09:26 (Zofran Inj) 4 mg Q6H PRN IVP 10/30/17 22:45 (Tylenol) 650 mg Q6H PRN PO 10/30/17 22:45 10/31/17 07:11 (Dilaudid Pf Inj) 1 mg Q3H PRN IV PUSH 10/30/17 22:45 (Alyssa-Colace) 1 tab BID PO 10/31/17 09:00 11/01/17 09:15 (Milk Of Magnesia Liq) 30 ml Q12H PRN PO 10/30/17 22:45 (Senokot) 17.2 mg Q12H PRN PO 10/30/17 22:45 10/31/17 07:41 (Dulcolax Supp) 10 mg DAILY PRN RECTAL 10/30/17 22:45 (Lactulose Liq) 30 ml DAILY PRN PO 10/30/17 22:45 (Aspirin) 325 mg DAILY PO 10/31/17 09:00 11/01/17 09:26 (Symbicort 160-4.5 Mcg Inh) 2 puff Q12HR INH 10/31/17 09:00 11/01/17 09:15 (Cymbalta Dr) 30 mg DAILY PO 10/31/17 09:00 11/01/17 09:15 (Dilaudid) 4 mg Q4H PRN PO 10/30/17 22:45 11/01/17 11:06 (Singulair) 10 mg HS PO 10/31/17 21:00 10/31/17 20:14 (Valium) 5 mg Q8H PRN PO 10/30/17 23:00 11/01/17 11:14 (Levaquin) 750 mg DAILY PO 11/01/17 09:00 11/01/17 09:26 (Tessalon) 100 mg TID PO 10/31/17 13:00 11/01/17 11:05 (Flexeril) 5 mg Q8H PRN PO 10/31/17 10:45 11/01/17 06:07 (Lovenox Inj) 30 mg Q24H SQ 10/31/17 11:00 11/01/17 11:05 (Pill Splitter) 1 ea UNSCH PRN OTHER 10/31/17 11:00 (Norflex Inj) 60 mg Q12H IM 11/01/17 20:00 Vancomycin HCl 1000 mg/Sodium Chloride 250 ml @ 250 mls/hr Q24H IV 11/01/17 11:15 [facility] Pharmacy Profile Note 0 ml @ 0 mls/hr UNSCH OTHER 11/01/17 11:15 A/P Problem List: (1) COPD (chronic obstructive pulmonary disease) ICD Code: J44.9 - Chronic obstructive pulmonary disease Status: Chronic (2) Hypoxia ICD Code: R09.02 - Hypoxia Status: Acute (3) Chronic back pain ICD Code: M54.9 - Dorsalgia, unspecified; G89.29 - Other chronic pain Status: Acute (4) MRSA bacteremia ICD Code: R78.81 - Bacteremia Assessment and Plan This is a 47-year-old female with history of COPD presenting with shortness of breath. Now found to be MRSA bacteremic. 1. COPD exacerbation * Continue Solu-Medrol 40 mg every 6 hours * Continue DuoNeb * Continue Symbicort * Continue Singulair * Blood cultures as below 2. MRSA bacteremic * Consulting infectious disease * Blood cultures positive for MRSA * Starting vancomycin * History of Dilaudid use, obtaining echocardiogram to rule out endocarditis as it is difficult to auscultate her heart as she continues to cough, large amount of wheezing and patient crying due to pain 3. Chronic lower back pain * Continue patient's home medication of Dilaudid in order to prevent withdrawal * Continue patient's medication of Valium * Started Norflex twice daily Lovenox for DVT prophylaxis Discharge Planning Medical workup pending Problem Qualifiers (1) Chronic back pain: Qualified Codes: M54.5 - Low back pain; G89.29 - Other chronic pain Jorge Dasilva MD, R3 Nov 01, 2017 12:10
[2017-11-01] MEDS ORDERED: VANCOMYCIN 1,500 MG/NS 500 ML IV SCH ×2 (14:00)
--- NOTE | 2017-11-01 14:00 | PD.CONS ---
History of Present Illness Service Infectious Disease Consult Requested By Dr Dasilva Reason for Consult Evaluate patient with (+) BC with MRSA Primary Care Physician No Primary Care Physician Diagnoses: History of Present Illness Seen and examined. Records reviewed. Patient is a 47-year-old female, with known history of asthma, presented to the hospital complaining of severe low back pain for 3 days, with shortness of breath. She has some cough but she was afraid to cough because it worsens her back pain. She was also having fever and chills. Denies any chest pain, or any urinary complaints. She's had some constipation. The pain in her back goes like it's muscular, but it is now coming shooting pain that goes up her upper spine. 2 blood cultures done on admission are now reported as growing MRSA. Her chest x-rays normal. He has been getting worse in the back. Her WBC is elevated. She is getting Decadron and Levaquin for her pulmonary problem. 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 She had an admission back in August for labial abscess and the culture had MRSA. She was not bacteremic at that time. Infectious disease consultation has been requested to evaluate the patient. Review of Systems Constitutional: COMPLAINS OF: Fever, Chills, Night Sweats Eyes: DENIES: Eye pain Ears, nose, mouth, throat: DENIES: Nasal discharge, Oral lesions, Throat pain, Ear Pain, Sinus Pain Respiratory: COMPLAINS OF: Cough, Shortness of breath, DENIES: Sputum production Cardiovascular: DENIES: Chest pain, Palpitations, Syncope Gastrointestinal: COMPLAINS OF: Constipation, DENIES: Abdominal pain, Diarrhea , Nausea, Vomiting, Difficulty Swallowing Genitourinary: DENIES: Urinary frequency, Urinary incontinence, Urgency, Hematuria, Dysuria Musculoskeletal: COMPLAINS OF: Muscle aches, Back pain, DENIES: Joint pain, Joint Swelling Integumentary: COMPLAINS OF: Rash, DENIES: Nail changes Hematologic/lymphatic: DENIES: Lymphadenopathy Neurologic: DENIES: Headache, Localized weakness Psychiatric: DENIES: Hallucinations Past Family Social History Allergies: Coded Allergies: No Known Allergies (Verified Adverse Reaction, Unknown, 09/05/17) Past Medical History Livedo vasculopathy, 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 COPD. GERD. Obesity. 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 Labial abscess, drained Past Surgical History Screws / plats in left elbow Left breast abscess drainage Active Ordered Medications Current Medications Medications (Trade) Dose Ordered Sig/Juanpablo Route Start Time Stop Time Status Last Admin (SoluMEDROL INJ) 40 mg Q6HR IV PUSH 10/31/17 00:00 11/01/17 11:05 (Duoneb Neb) 1 ampule Q4HR WHILE AWAKE NEB NEB 10/31/17 08:00 10/31/17 17:39 (Duoneb Neb) 1 ampule Q2HR NEB PRN NEB 10/30/17 22:45 (Mucinex Er) 600 mg BID PO 10/31/17 09:00 11/01/17 09:26 (NS Flush) 2 ml UNSCH PRN IV FLUSH 10/30/17 22:45 (NS Flush) 2 ml BID IV FLUSH 10/31/17 09:00 11/01/17 09:26 (Zofran Inj) 4 mg Q6H PRN IVP 10/30/17 22:45 (Tylenol) 650 mg Q6H PRN PO 10/30/17 22:45 10/31/17 07:11 (Dilaudid Pf Inj) 1 mg Q3H PRN IV PUSH 10/30/17 22:45 (Alyssa-Colace) 1 tab BID PO 10/31/17 09:00 11/01/17 09:15 (Milk Of Magnesia Liq) 30 ml Q12H PRN PO 10/30/17 22:45 (Senokot) 17.2 mg Q12H PRN PO 10/30/17 22:45 10/31/17 07:41 (Dulcolax Supp) 10 mg DAILY PRN RECTAL 10/30/17 22:45 (Lactulose Liq) 30 ml DAILY PRN PO 10/30/17 22:45 (Aspirin) 325 mg DAILY PO 10/31/17 09:00 11/01/17 09:26 (Symbicort 160-4.5 Mcg Inh) 2 puff Q12HR INH 10/31/17 09:00 11/01/17 09:15 (Cymbalta Dr) 30 mg DAILY PO 10/31/17 09:00 11/01/17 09:15 (Dilaudid) 4 mg Q4H PRN PO 10/30/17 22:45 11/01/17 11:06 (Singulair) 10 mg HS PO 10/31/17 21:00 10/31/17 20:14 (Valium) 5 mg Q8H PRN PO 10/30/17 23:00 11/01/17 11:14 (Levaquin) 750 mg DAILY PO 11/01/17 09:00 11/01/17 09:26 (Tessalon) 100 mg TID PO 10/31/17 13:00 11/01/17 11:05 (Flexeril) 5 mg Q8H PRN PO 10/31/17 10:45 11/01/17 06:07 (Lovenox Inj) 30 mg Q24H SQ 10/31/17 11:00 11/01/17 11:05 (Pill Splitter) 1 ea UNSCH PRN OTHER 10/31/17 11:00 (Norflex Inj) 60 mg Q12H IM 11/01/17 20:00 Pharmacy Profile Note 0 ml @ 0 mls/hr UNSCH OTHER 11/01/17 11:15 Vancomycin HCl 1500 mg/Sodium Chloride 515 ml @ 257.5 mls/ hr Q12H IV 11/01/17 14:00 Miscellaneous Information SPECIFIC LAB TO BE DRAWN:[facility]... ONCE ONCE .XX 11/03/17 01:45 11/03/17 01:46 Family History Noncontributory Social History to her [place]. Social alcohol use, quit tobacco in 2014. Denies drug use. Physical Exam Vital Signs Vital Signs Date Time Temp Pulse Resp B/P (MAP) Pulse Ox O2 Delivery O2 Flow Rate FiO2 11/01/17 11:41 97.3 80 18 152/76 (101) 95 11/01/17 11:36 Nasal Cannula 3.00 11/01/17 10:34 97 Nasal Cannula 4.00 11/01/17 07:56 98.8 84 18 166/83 (110) 93 11/01/17 07:30 87 11/01/17 04:08 97.9 82 18 134/64 (87) 93 11/01/17 00:22 74 10/31/17 23:21 97.3 75 18 121/65 (83) 97 10/31/17 20:00 87 10/31/17 19:35 Nasal Cannula 4.00 10/31/17 19:32 97.0 84 18 144/69 (94) 95 10/31/17 15:49 94 Nasal Cannula 4.00 10/31/17 15:49 97.9 81 16 117/66 (83) 94 Physical Exam GENERAL: Patient is a well-nourished, well-developed female, looks acutely ill appearing due to severe back pain, awake and alert, not in respiratory distress. SKIN: Warm and dry. No generalized rash, no ecchymoses and no evidence of embolic lesions. Has brownish pigmentation in both lower legs HEAD: Atraumatic. Normocephalic. No temporal wasting, or tenderness. EYES: [place] conjunctiva. No petechia or hemorrhage. Pupils equal, round and reactive to light. Extraocular movements full and intact. No scleral icterus. No injection or drainage. EARS, NOSE AND THROAT: Nose without bleeding or purulent nasal discharge. No sinus tenderness. Mucous membranes pink and moist. No oral lesions noted. No exudate. No oral thrush. NECK: Trachea midline. Supple and not tender, no meningeal signs CARDIOVASCULAR: Regular rate and rhythm. No murmurs, rubs or gallops heard RESPIRATORY: Clear to auscultation. Breath sounds equal bilaterally. No rales , wheezing or rhonchi ABDOMEN: Soft, non-tender, nondistended. Bowel sounds present and normoactive. No guarding. No rebound. No organomegaly. EXTREMITIES: No clubbing, cyanosis, or edema.No joint effusion, has good ROM. No calf tenderness. Well perfused and warm. NEUROLOGICAL: Awake and alert. Cranial nerves grossly intact. Motor grossly within normal limits. BACK: Tender in whole back, no point tenderness, no swelling or redness noted PSYCHIATRIC: Normal affect, calm and cooperative. LINE: No evidence of infection Laboratory Laboratory Tests Test 10/31/17 18:15 10/31/17 18:25 11/01/17 09:18 White Blood Count 15.6 Red Blood Count 4.82 Hemoglobin 11.6 Hematocrit 36.0 Mean Corpuscular Volume 74.7 Mean Corpuscular Hemoglobin 24.1 Mean Corpuscular Hemoglobin Concent 32.2 Red Cell Distribution Width 16.5 Platelet Count 131 Mean Platelet Volume 9.5 Neutrophils (%) (Auto) 90.7 Lymphocytes (%) (Auto) 3.8 Monocytes (%) (Auto) 4.9 Eosinophils (%) (Auto) 0.0 Basophils (%) (Auto) 0.6 Neutrophils # (Auto) 14.2 Lymphocytes # (Auto) 0.6 Monocytes # (Auto) 0.8 Eosinophils # (Auto) 0.0 Basophils # (Auto) 0.1 CBC Comment DIFF FINAL Differential Comment Blood Urea Nitrogen 17 22 Creatinine 0.61 0.48 Random Glucose 168 127 Total Protein 7.2 Albumin 2.7 Calcium Level 8.8 8.8 Alkaline Phosphatase 116 Aspartate Amino Transf (AST/SGOT) 17 Alanine Aminotransferase (ALT/SGPT) 22 Total Bilirubin 0.7 Sodium Level 135 134 Potassium Level 3.5 3.7 Chloride Level 99 96 Carbon Dioxide Level 31.0 30.1 Anion Gap 5 8 Estimat Glomerular Filtration Rate 105 139 Date/Time Source Procedure Growth Status 10/31/17 13:30 Blood Peripheral Aerobic Blood Culture - Preliminary Gram Positive Cocci Resulted 10/31/17 13:30 Blood Peripheral Anaerobic Blood Culture - Final QNS - SEE AEROBE REPORT Resulted Result Diagram: 10/31/17 1815 11/01/17 0918 Imaging RADIOLOGY STUDIES/FILMS REVIEWED Chest X-Ray 10/30/172031 Signed Impressions: Service Date/Time: Monday, October 30, 2017 21:48 - CONCLUSION: No acute disease. Domenic Davis MD Assessment and Plan Assessment and Plan IMPRESSION MRSA sepsis, source, very worrisome for back infection Severe low back pain, ?abscess, discitis, osteo CPOD exacerbation Prior Hx labial abscess Aug 2017 Hx livedo vasculopathy RECOMMENDATION Continue IV vanco, target trough 15-20 Repeat BC to document clearing Echo Baseline Sed rate and CRP MRI thoracic and lumbar spine - D/W radiology, ok to do even with hardware in her L elbow from previous fracture 27 years ago On Rx for COPD exacerbation Xray lumbar spine Follow C/S Monitor temps Monitor progress I will determine course of Abx once work-up completed I will follow along with you Thank you for this consultation Jazmín Velez MD Nov 01, 2017 14:00
[2017-11-01] MEDS ORDERED: GADODIAMIDE PF 287 MG/ML 20 ML VIAL (for RAD MRI) IVCONTRAST ONE (17:49)
--- NOTE | 2017-11-01 18:39 | RADRPT ---
EXAM DATE/TIME: 11/01/2017 18:18 [facility] COMPARISON: No previous studies available for comparison. INDICATIONS : Lumbar spine pain, injured coughing MEDICAL HISTORY : Chronic obstructive pulmonary disease. SURGICAL HISTORY : None. ENCOUNTER: Initial ACUITY: 3 days PAIN SCORE: 10/10 LOCATION: Lumbar spine FINDINGS: There are five non-rib bearing vertebral bodies. The vertebral bodies are in normal alignment withou t evidence of subluxation or scoliosis. The disc spaces are maintained. The posterior elements are intact without evidence of spondylolysis. The pedicles are intact. Bony mineralization is normal. No fracture is identified. CONCLUSION: No acute disease. Valente Parsad MD on November 01, 2017 at 18:37 Board Certified Radiologist. This report was verified electronically.
--- NOTE | 2017-11-01 18:46 | RADRPT ---
EXAM DATE/TIME: 11/01/2017 17:21 [facility] COMPARISON: No previous studies available for comparison. INDICATIONS : Severe pain. CONTRAST: 16 cc Omniscan (gadodiamide) IV MEDICAL HISTORY : Chronic obstructive pulmonary disease. Rheumatoid arthritis. Livedoid vasculitis. SURGICAL HISTORY : Tonsillectomy. Appendectomy. ENCOUNTER: Initial ACUITY: 1 day PAIN SCORE: 7/10 LOCATION: [facility] TECHNIQUE: Multiplanar multisequence MRI of the thoracic spine was performed. FINDINGS: There is a hemangioma in T9 verbal body level. There is mild inhomogeneous, slightly increased T2 sig nal at T11 and T12, with perivertebral edema centered at this level extending cephalad to T10 and to the upper aspect of L1. There is mild dural enhancement seen on the postcontrast images anteriorly fr om T11-L1 and posteriorly from T9-L1. As seen best on sagittal image 5 of series 14. There is also di ffuse heterogeneous enhancement of the T11 and T12 vertebral bodies. There is an anterior disc bulge at T11-12 noted. The intervertebral disc signal is normal. T1-T2: Normal. T2-T3: The thecal sac has a normal diameter. No evidence of disc bulge or protrusion. T3-T4: The thecal sac has a normal diameter. No evidence of disc bulge or protrusion. T4-T5: The thecal sac has a normal diameter. No evidence of disc bulge or protrusion. T5-T6: The thecal sac has a normal diameter. No evidence of disc bulge or protrusion. T6-T7: The thecal sac has a normal diameter. No evidence of disc bulge or protrusion. T7-T8: The thecal sac has a normal diameter. No evidence of disc bulge or protrusion. T8-T9: The thecal sac has a normal diameter. No evidence of disc bulge or protrusion. T9-T10: The thecal sac has a normal diameter. No evidence of disc bulge or protrusion. T10-T11: The thecal sac has a normal diameter. No evidence of disc bulge or protrusion. T11-T12: There is an anterior disc protrusion seen. T12-L1: The thecal sac has a normal diameter. No evidence of disc bulge or protrusion. CONCLUSION: There is heterogeneous enhancement T11 and T12 with surrounding perivertebral edema and dural enhance ment anterior and posterior to the cord. A well-defined mass is not seen. Intervertebral disc signal intensity is normal without enhancement to suggest discitis, however an osteomyelitis or other underl maykel infectious process should be excluded. Valente Prasad MD on November 01, 2017 at 18:37 Board Certified Radiologist. This report was verified electronically.
--- NOTE | 2017-11-01 18:49 | RADRPT ---
EXAM DATE/TIME: 11/01/2017 17:21 [facility] COMPARISON: MRI THORACIC SPINE W & W/O CONTRAST, November 01, 2017, 17:21. INDICATIONS : Severe pain. CONTRAST: 16 cc Omniscan (gadodiamide) IV MEDICAL HISTORY : Chronic obstructive pulmonary disease. Rheumatoid arthritis. Livedoid vasculitis. SURGICAL HISTORY : Tonsillectomy. section. ENCOUNTER: Initial ACUITY: 1 day PAIN SCORE: 7/10 LOCATION: Paraspinal TECHNIQUE: Multiplanar multisequence MRI of the lumbar spine was performed with and without contrast. FINDINGS: The most caudal appearing lumbar vertebra is numbered as L5. There is heterogeneous enhancement at T1 1 and T12 with surrounding dural enhancement in the anterior and posterior aspect of the spinal canal . A well-defined epidural abscess is not seen. There is enhancement and edema anterior to the vertebr al bodies in the lower thoracic spine. There is no definite enhancement of the disc space. The conus is unremarkable. T12-L1: The thecal sac has a normal diameter. No evidence of disc bulge or protrusion. The neural foramina are patent bilaterally. L1-L2: The thecal sac has a normal diameter. No evidence of disc bulge or protrusion. The neural foramina are patent bilaterally. L2-L3: The thecal sac has a normal diameter. No evidence of disc bulge or protrusion. The neural foramina are patent bilaterally. L3-L4: The thecal sac has a normal diameter. No evidence of disc bulge or protrusion. The neural foramina are patent bilaterally. L4-L5: Mild facet and ligamentum flavum hypertrophy with facet joint fluid. L5-S1: Mild facet and ligamentum flavum hypertrophy. CONCLUSION: Abnormal signal involving the dura in the lower thoracic and upper lumbar spine with heterogeneous en hancement of T11 and T12 suggest underlying infectious process/osteomyelitis. No obvious epidural col lections at this time.. Valetne Prasad MD on November 01, 2017 at 18:44 Board Certified Radiologist. This report was verified electronically.
[2017-11-01] MEDS: ORPHENADRINE INJ 60 MG/2 ML AMP IM SCH (21:40)
[2017-11-01] MEDS: MONTELUKAST SODIUM 10 MG TAB PO SCH (21:41)
[2017-11-01] MEDS: VANCOMYCIN 1,500 MG/NS 500 ML IV SCH ×2 (21:41)
[2017-11-02] VITALS (10 sets, daily range): BP systolic 154–170; BP diastolic 66–86; PULSE 70–95; RESP 18–20; TEMP 97.8–98.8; O2SAT 89–96
[2017-11-02] MEDS: CYCLOBENZAPRINE HCL 10 MG TAB PO PRN ×4 (00:47→21:14)
[2017-11-02] MEDS: methylPREDNISolone SOD SUCC 40 MG/1 ML VIAL IV PUSH SCH ×5 (00:51→23:53)
[2017-11-02] MEDS ORDERED: HYDROmorphone HCL PF 2 MG/ML VIAL IV PUSH PRN (01:15)
[2017-11-02] MEDS: HYDROmorphone HCL 4 MG TAB PO PRN ×6 (01:43→21:14)
[2017-11-02] MEDS: DIAZEPAM 5 MG TAB PO PRN ×3 (05:32→21:14)
[2017-11-02] MEDS: RESP: ALBUTEROL 2.5 MG/IPRATROPIUM 0.5 MG NEB (SCH) NEB ×4 (07:51→20:22)
[2017-11-02] MEDS: ORPHENADRINE INJ 60 MG/2 ML AMP IM SCH ×2 (09:16→21:14)
[2017-11-02] MEDS: ASPIRIN 325 MG TAB PO SCH (09:20)
[2017-11-02] MEDS: DOCUSATE SODIUM 50 MG/SENNA 8.6 MG TAB PO SCH ×2 (09:21→21:15)
[2017-11-02] MEDS: BUDESONIDE-FORMOTEROL 160/4.5 MCG INHALER INH SCH ×2 (09:21→21:00)
[2017-11-02] MEDS: LEVOFLOXACIN 750 MG TAB PO SCH (09:21)
[2017-11-02] MEDS: DULoxetine HCl DR 30 MG CAP PO SCH (09:21)
[2017-11-02] MEDS: guaiFENesin E.R. 600 MG TAB PO SCH ×2 (09:21→21:15)
[2017-11-02] MEDS: BENZONATATE 100 MG CAP PO SCH ×3 (09:21→17:34)
[2017-11-02] MEDS: VANCOMYCIN 1,500 MG/NS 500 ML IV SCH ×4 (09:21→21:13)
[2017-11-02] MEDS: SODIUM CHLORIDE 0.9% FLUSH 10 ML FLUSH IV FLUSH SCH ×2 (09:24→21:00)
--- NOTE | 2017-11-02 10:03 | HHI.PR ---
Subjective Remarks t max 99.7 overnight complains of back pain and spasms and causing difficulty ambulating denies any diarrhea or any urinary symptoms + dry cough states recently treated for COPD exertion- at home on symbicort scheduled and albuterol rescue inhaler stopped smoking 2 years ago history of left elbow OM years ago denies any vaginal discharge Objective Vitals Vital Signs Date Time Temp Pulse Resp B/P (MAP) Pulse Ox O2 Delivery O2 Flow Rate FiO2 11/02/17 08:00 98.7 84 20 160/86 (110) 92 11/02/17 07:55 94 Nasal Cannula 3.00 11/02/17 04:00 94 Nasal Cannula 4.00 11/02/17 04:00 98.8 94 18 160/66 (97) 93 11/02/17 04:00 94 11/02/17 00:00 98.1 95 20 155/85 (108) 91 11/02/17 00:00 91 Nasal Cannula 3.00 11/02/17 00:00 82 11/01/17 21:14 84 11/01/17 20:00 97.8 85 20 178/90 (119) 92 11/01/17 20:00 92 Nasal Cannula 2.00 11/01/17 15:54 96 Nasal Cannula 4.00 11/01/17 15:54 97.3 75 18 147/74 (98) 96 11/01/17 14:11 Nasal Cannula 4.00 11/01/17 11:41 97.3 80 18 152/76 (101) 95 11/01/17 11:36 Nasal Cannula 3.00 11/01/17 10:34 97 Nasal Cannula 4.00 I/O 11/01/17 11/01/17 11/01/17 11/02/17 11/02/17 11/02/17 07:00 15:00 23:00 07:00 15:00 23:00 Intake Total 360 ml 480 ml 240 ml Balance 360 ml 480 ml 240 ml Intake Oral 360 ml 480 ml 240 ml IV Total 0 ml # Voids 2 3 6 # Bowel Movements 0 1 1 Result Diagram: 10/31/17 1815 11/01/17 0918 Imaging Last Impressions Thoracic Spine MRI 11/01/17 0000 Signed Impressions: Service Date/Time: Wednesday, November 01, 2017 17:21 - CONCLUSION: There is heterogeneous enhancement T11 and T12 with surrounding perivertebral edema and dural enhancement anterior and posterior to the cord. A well-defined mass is not seen. Intervertebral disc signal intensity is normal without enhancement to suggest discitis, however an osteomyelitis or other underlying infectious process should be excluded. Valente Prasad MD Lumbar Spine X-Ray 11/01/17 0000 Signed Impressions: Service Date/Time: Wednesday, November 01, 2017 18:18 - CONCLUSION: No acute disease. Valente Prasad MD Lumbar Spine MRI 11/01/17 0000 Signed Impressions: Service Date/Time: Wednesday, November 01, 2017 17:21 - CONCLUSION: Abnormal signal involving the dura in the lower thoracic and upper lumbar spine with heterogeneous enhancement of T11 and T12 suggest underlying infectious process/osteomyelitis. No obvious epidural collections at this time.. Valente Prasad MD Chest X-Ray 10/30/172031 Signed Impressions: Service Date/Time: Monday, October 30, 2017 21:48 - CONCLUSION: No acute disease. Domenic Davis MD Objective Remarks awake and alert, + pain with movement of legs/trunk anicteric no rales-+ inspiratory wheezes, regular rhythm abdomen flabby, soft, nontender extremities- moves both LE spontaneously but with difficulty and pain and some jerking with flexion no edema, + pain of the back whenever she tries to move her legs- r more than left - some sudden jerking movement in an effort to bend legs +++ DTrs, grossly sensory intact thumb- with superficial dry wound - A/P Problem List: (1) COPD (chronic obstructive pulmonary disease) ICD Code: J44.9 - Chronic obstructive pulmonary disease Status: Chronic (2) Hypoxia ICD Code: R09.02 - Hypoxia Status: Acute (3) Chronic back pain ICD Code: M54.9 - Dorsalgia, unspecified; G89.29 - Other chronic pain Status: Acute (4) MRSA bacteremia ICD Code: R78.81 - Bacteremia Assessment and Plan This is a 47-year-old female with history of COPD presenting with shortness of breath. Now found to be MRSA bacteremic. 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
[2017-11-02] MEDS: ENOXAPARIN SODIUM 30 MG/0.3 ML SYRINGE SQ SCH (11:00)
--- NOTE | 2017-11-02 11:43 | HHI.IDPN ---
Subjective Subjective Remarks Patient is a 47-year-old female, with known history of asthma, presented to the hospital complaining of severe low back pain for 3 days, with shortness of breath. She has some cough but she was afraid to cough because it worsens her back pain. She was also having fever and chills. Denies any chest pain, or any urinary complaints. She's had some constipation. The pain in her back goes like it's muscular, but it is now coming shooting pain that goes up her upper spine. 2 blood cultures done on admission are now reported as growing MRSA. Her chest x-rays normal. He has been getting worse in the back. Her WBC is elevated. She is getting Decadron and Levaquin for her pulmonary problem. 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 She had an admission back in August for labial abscess and the culture had MRSA. She was not bacteremic at that time. Infectious disease consultation has been requested to evaluate the patient. Notes reviewed Temps ok Still with severe back pain All her BC are (+) Unable to draw blood, tried multiple times MRI with some abnormality seen in T11-T12 Echo pending Antibiotics Vanco Levaquin Current Medications Medications (Trade) Dose Ordered Sig/Juanpablo Route Start Time Stop Time Status Last Admin (SoluMEDROL INJ) 40 mg Q6HR IV PUSH 10/31/17 00:00 11/02/17 05:33 (Duoneb Neb) 1 ampule Q2HR NEB PRN NEB 10/30/17 22:45 (Mucinex Er) 600 mg BID PO 10/31/17 09:00 11/02/17 09:21 (NS Flush) 2 ml UNSCH PRN IV FLUSH 10/30/17 22:45 (NS Flush) 2 ml BID IV FLUSH 10/31/17 09:00 11/02/17 09:24 (Zofran Inj) 4 mg Q6H PRN IVP 10/30/17 22:45 (Tylenol) 650 mg Q6H PRN PO 10/30/17 22:45 10/31/17 07:11 (Alyssa-Colace) 1 tab BID PO 10/31/17 09:00 11/02/17 09:21 (Milk Of Magnesia Liq) 30 ml Q12H PRN PO 10/30/17 22:45 (Senokot) 17.2 mg Q12H PRN PO 10/30/17 22:45 10/31/17 07:41 (Dulcolax Supp) 10 mg DAILY PRN RECTAL 10/30/17 22:45 (Lactulose Liq) 30 ml DAILY PRN PO 10/30/17 22:45 (Aspirin) 325 mg DAILY PO 10/31/17 09:00 11/02/17 09:20 (Symbicort 160-4.5 Mcg Inh) 2 puff Q12HR INH 10/31/17 09:00 11/02/17 09:21 (Cymbalta Dr) 30 mg DAILY PO 10/31/17 09:00 11/02/17 09:21 (Dilaudid) 4 mg Q4H PRN PO 10/30/17 22:45 11/02/17 09:29 (Singulair) 10 mg HS PO 10/31/17 21:00 11/01/17 21:41 (Valium) 5 mg Q8H PRN PO 10/30/17 23:00 11/02/17 05:32 (Levaquin) 750 mg DAILY PO 11/01/17 09:00 11/07/17 23:00 11/02/17 09:21 (Tessalon) 100 mg TID PO 10/31/17 13:00 11/02/17 09:21 (Flexeril) 5 mg Q8H PRN PO 10/31/17 10:45 11/02/17 09:29 (Lovenox Inj) 30 mg Q24H SQ 10/31/17 11:00 11/01/17 11:05 (Pill Splitter) 1 ea UNSCH PRN OTHER 10/31/17 11:00 (Norflex Inj) 60 mg Q12H IM 11/01/17 20:00 11/02/17 09:16 Pharmacy Profile Note 0 ml @ 0 mls/hr UNSCH OTHER 11/01/17 11:15 Vancomycin HCl 1500 mg/Sodium Chloride 515 ml @ 257.5 mls/ hr Q12H IV 11/01/17 20:00 11/02/17 09:21 Miscellaneous Information SPECIFIC LAB TO BE DRAWN:[facility]... 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 COPD. GERD. Obesity. 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 Labial abscess, drained Past Surgical History Screws / plats in left elbow Left breast abscess drainage I and D labial abscess Allergies: Coded Allergies: No Known Allergies (Verified Adverse Reaction, Unknown, 09/05/17) Objective . Vital Signs Date Time Temp Pulse Resp B/P (MAP) Pulse Ox O2 Delivery O2 Flow Rate FiO2 11/02/17 08:00 98.7 84 20 160/86 (110) 92 11/02/17 07:55 94 Nasal Cannula 3.00 11/02/17 04:00 94 Nasal Cannula 4.00 11/02/17 04:00 98.8 94 18 160/66 (97) 93 11/02/17 04:00 94 11/02/17 00:00 98.1 95 20 155/85 (108) 91 11/02/17 00:00 91 Nasal Cannula 3.00 11/02/17 00:00 82 11/01/17 21:14 84 11/01/17 20:00 97.8 85 20 178/90 (119) 92 11/01/17 20:00 92 Nasal Cannula 2.00 11/01/17 15:54 96 Nasal Cannula 4.00 11/01/17 15:54 97.3 75 18 147/74 (98) 96 11/01/17 14:11 Nasal Cannula 4.00 11/01/17 11:41 97.3 80 18 152/76 (101) 95 . Laboratory Tests Test 10/31/17 18:15 11/02/17 10:41 White Blood Count 15.6 TH/MM3 Red Blood Count 4.82 MIL/MM3 Hemoglobin 11.6 GM/DL Hematocrit 36.0 % Mean Corpuscular Volume 74.7 FL Mean Corpuscular Hemoglobin 24.1 PG Mean Corpuscular Hemoglobin Concent 32.2 % Red Cell Distribution Width 16.5 % Platelet Count 131 TH/MM3 Mean Platelet Volume 9.5 FL Neutrophils (%) (Auto) 90.7 % Lymphocytes (%) (Auto) 3.8 % Monocytes (%) (Auto) 4.9 % Eosinophils (%) (Auto) 0.0 % Basophils (%) (Auto) 0.6 % Neutrophils # (Auto) 14.2 TH/MM3 Lymphocytes # (Auto) 0.6 TH/MM3 Monocytes # (Auto) 0.8 TH/MM3 Eosinophils # (Auto) 0.0 TH/MM3 Basophils # (Auto) 0.1 TH/MM3 CBC Comment DIFF FINAL Differential Comment Laboratory Tests Test 10/31/17 18:25 11/01/17 09:18 11/02/17 10:41 11/02/17 11:00 Blood Urea Nitrogen 17 MG/DL 22 MG/DL Creatinine 0.61 MG/DL 0.48 MG/DL Random Glucose 168 MG/DL 127 MG/DL Total Protein 7.2 GM/DL Albumin 2.7 GM/DL Calcium Level 8.8 MG/DL 8.8 MG/DL Alkaline Phosphatase 116 U/L Aspartate Amino Transf (AST/SGOT) 17 U/L Alanine Aminotransferase (ALT/SGPT) 22 U/L Total Bilirubin 0.7 MG/DL Sodium Level 135 MEQ/L 134 MEQ/L Potassium Level 3.5 MEQ/L 3.7 MEQ/L Chloride Level 99 MEQ/L 96 MEQ/L Carbon Dioxide Level 31.0 MEQ/L 30.1 MEQ/L Anion Gap 5 MEQ/L 8 MEQ/L Estimat Glomerular Filtration Rate 105 ML/MIN 139 ML/MIN Microbiology Date/Time Source Procedure Growth Status 11/02/17 10:41 Blood Peripheral Aerobic Blood Culture Pending Received 11/02/17 10:41 Blood Peripheral Anaerobic Blood Culture Pending Received 11/01/17 15:22 Blood Peripheral Aerobic Blood Culture - Preliminary NO GROWTH IN 1 DAY Resulted 11/01/17 15:22 Anaerobic Blood Culture - Preliminary Gram Positive Cocci Resulted 10/31/17 13:30 Blood Peripheral Aerobic Blood Culture - Preliminary Gram Positive Cocci Resulted 10/31/17 13:30 Blood Peripheral Anaerobic Blood Culture - Final QNS - SEE AEROBE REPORT Resulted 10/31/17 13:25 Blood Peripheral Aerobic Blood Culture - Preliminary S. Aureus Mrsa Resulted 10/31/17 13:25 Blood Peripheral Anaerobic Blood Culture - Final QNS - SEE AEROBE REPORT Resulted Imaging s Thoracic Spine MRI 11/01/17 0000 Signed Impressions: Service Date/Time: Wednesday, November 01, 2017 17:21 - CONCLUSION: There is heterogeneous enhancement T11 and T12 with surrounding perivertebral edema and dural enhancement anterior and posterior to the cord. A well-defined mass is not seen. Intervertebral disc signal intensity is normal without enhancement to suggest discitis, however an osteomyelitis or other underlying infectious process should be excluded. Valente Prasad MD Lumbar Spine X-Ray 11/01/17 Signed Impressions: Service Date/Time: Wednesday, November 01, 2017 18:18 - CONCLUSION: No acute disease. Valente Prasad MD Lumbar Spine MRI 11/01/17 0000 Signed Impressions: Service Date/Time: Wednesday, November 01, 2017 17:21 - CONCLUSION: Abnormal signal involving the dura in the lower thoracic and upper lumbar spine with heterogeneous enhancement of T11 and T12 suggest underlying infectious process/osteomyelitis. No obvious epidural collections at this time.. Valente Prasad MD Chest X-Ray 10/30/172031 Signed Impressions: Service Date/Time: Monday, October 30, 2017 21:48 - CONCLUSION: No acute disease. Domenic Davis MD Physical Exam GENERAL: looks acutely ill appearing due to severe back pain, awake and alert , not in respiratory distress. SKIN: Warm and dry. No generalized rash, no ecchymoses and no evidence of embolic lesions. Has brownish pigmentation in both lower legs HEAD: Atraumatic. Normocephalic. No temporal wasting, or tenderness. EYES: [place] conjunctiva. No petechia or hemorrhage. Pupils equal, round and reactive to light. Extraocular movements full and intact. No scleral icterus. No injection or drainage. EARS, NOSE AND THROAT: Nose without bleeding or purulent nasal discharge. No sinus tenderness. Mucous membranes pink and moist. No oral lesions noted. No exudate. No oral thrush. NECK: Trachea midline. Supple and not tender, no meningeal signs CARDIOVASCULAR: Regular rate and rhythm. No murmurs, rubs or gallops heard RESPIRATORY: Clear to auscultation. Breath sounds equal bilaterally. No rales , wheezing or rhonchi ABDOMEN: Soft, non-tender, nondistended. Bowel sounds present and normoactive. No guarding. No rebound. No organomegaly. EXTREMITIES: No clubbing, cyanosis, or edema.No joint effusion, has good ROM. No calf tenderness. Well perfused and warm. NEUROLOGICAL: Awake and alert. Cranial nerves grossly intact. Motor grossly within normal limits. BACK: Tender in whole back, no point tenderness, no swelling or redness noted PSYCHIATRIC: Normal affect, calm and cooperative. LINE: No evidence of infection Assessment & Plan Remarks IMPRESSION MRSA sepsis, source, very worrisome for back infection - ?endocarditis Prob early osteo T11-T12 Severe low back pain, ?abscess, discitis, osteo COPD exacerbation Prior Hx labial abscess Aug 2017 Hx livedo vasculopathy RECOMMENDATION Continue IV vanco, target trough 15-20 Repeat BC to document clearing Echo - likely need KIESHA Will order central line for Abx and lab draw Baseline Sed rate and CRP On Rx for COPD exacerbation Follow C/S Monitor temps Monitor progress D/W Dr Graves Explained plan to patient Dr Zelda Pettit covering in my absence 11/03-11/08 Jazmín Velez MD Nov 02, 2017 11:43
[2017-11-02 11:58] LABS: BICARBONATE 30.2 MEQ/L (21.0-32.0); CALCIUM 8.7 MG/DL (8.5-10.1); CREATININE 0.64 MG/DL (0.50-1.00)
[2017-11-02 12:24] LABS: HEMATOCRIT 40.4 % (35.0-46.0); HEMOGLOBIN 12.9 GM/DL (11.6-15.3); MEAN CELL VOLUME 73.2 FL (80.0-100.0); MEAN CORPUSCULAR HEMOGLOBIN 23.4 PG (27.0-34.0); MEAN PLATELET VOLUME 9.7 FL (7.0-11.0); PLATELET COUNT 175 TH/MM3 (150-450); RED BLOOD COUNT 5.52 MIL/MM3 (4.00-5.30); RED CELL DISTRIBUTION WIDTH 16.9 % (11.6-17.2); WHITE BLOOD COUNT 19.7 TH/MM3 (4.0-11.0)
[2017-11-02] MEDS ORDERED: SODIUM CHLORIDE 0.9% FLUSH 10 ML FLUSH IV FLUSH PRN (14:15)
--- NOTE | 2017-11-02 14:16 | PD.RAD ---
Post Procedure Progress Note Pre Procedure Diagnosis: (1) COPD (chronic obstructive pulmonary disease) (2) Abscess of labia (3) Abscess of groin, right Post Procedure Diagnosis: (1) Abscess of labia (2) Abscess of groin, right (3) COPD (chronic obstructive pulmonary disease) Procedure Date: Nov 02, 2017 Supervising Radiologist: Robert Navarro Estimated blood loss: 2cc Anesthesia: Local Plan of Activity Patient to Unit: Nursing Unit Patient Condition: Fair Additional Comments: Right IJ central line placed without difficulty. Catheter in good position OK for use. Full dictated report to follow See PACS Report for procedural detail/treatment Robert Navarro MD Nov 02, 2017 14:16
--- NOTE | 2017-11-02 17:08 | RADRPT ---
EXAM DATE/TIME: 11/02/2017 14:08 [facility] COMPARISON: PICC LINE INSERTION,POWER W/FL&US, July 12, 2015, 10:08. INDICATIONS : Patient presents with acute exacerbation chronic obstructive pulmonary disease in need of central corey e placement for access. MEDICAL HISTORY : COPD Anxiety Depression Chronic Back Pain SURGICAL HISTORY : Left Elbow Tonsillectomy ENCOUNTER: Initial ACUITY: 2 days PAIN SCORE: 0/10 LOCATION: N/A FLUORO TIME: 0.1 minutes IMAGE SERIES: 1 ACCESS: Right internal jugular vein DEVICE(S): 1.) 7 Spanish triple lumen 16 cm Arrow central line PROCEDURE : 1. Ultrasound guided venipuncture. 2. Fluoroscopic guidance. 3. Central line placement. The risks, benefits and alternatives to the procedure were explained and verbal and written consent w as obtained. The site was prepped in sterile fashion. Full sterile technique was used, including ca p, mask, sterile gloves and gown and a large sterile sheet. Hand hygiene and 2% chlorhexidine prep w as utilized per protocol for cutaneous antisepsis with appropriate dry time for site. Sterile gel an d sterile probe cover were utilized for ultrasound guidance. The skin and subcutaneous tissues were infiltrated with local anesthetic solution. A suitable site a rg the vein was selected with ultrasound and fluoroscopic guidance. A small incision was made. Th e vein was accessed under direct ultrasound visualization using the micropuncture technique. The jerman ropuncture set was exchanged for a 0.035 wire. The tract was dilated. The catheter was advanced int o position under direct fluoroscopic visualization. The catheter was fixed in place with suture and a sterile dressing was applied. The patient tolerated the procedure well and there were no complications. CONCLUSION: Uncomplicated line placement as above. Robert Navarro MD on November 02, 2017 at 17:05 Board Certified Radiologist. This report was verified electronically.
[2017-11-02] MEDS: MONTELUKAST SODIUM 10 MG TAB PO SCH (21:14)
[2017-11-03] VITALS (11 sets, daily range): BP systolic 150–176; BP diastolic 76–97; PULSE 61–77; RESP 17–20; TEMP 97.7–98.8; O2SAT 92–96
[2017-11-03] MEDS: CYCLOBENZAPRINE HCL 10 MG TAB PO PRN ×3 (01:32→17:49)
[2017-11-03] MEDS: HYDROmorphone HCL 4 MG TAB PO PRN ×6 (01:32→21:09)
[2017-11-03] MEDS ORDERED: PHARMACY ORDERED LAB ONE ×2 (01:45→07:45)
[2017-11-03] MEDS: RESP: ALBUTEROL 2.5 MG/IPRATROPIUM 0.5 MG NEB (SCH) NEB ×5 (04:39→23:50)
[2017-11-03] MEDS: DIAZEPAM 5 MG TAB PO PRN ×3 (05:25→21:09)
[2017-11-03] MEDS: methylPREDNISolone SOD SUCC 40 MG/1 ML VIAL IV PUSH SCH ×4 (05:25→23:35)
[2017-11-03 06:10] LABS: CREATININE 0.59 MG/DL (0.50-1.00)
[2017-11-03] MEDS: ORPHENADRINE INJ 60 MG/2 ML AMP IM SCH ×2 (08:32→20:06)
[2017-11-03] MEDS: LEVOFLOXACIN 750 MG TAB PO SCH (08:35)
[2017-11-03] MEDS: DOCUSATE SODIUM 50 MG/SENNA 8.6 MG TAB PO SCH ×2 (08:35→21:00)
[2017-11-03] MEDS: guaiFENesin E.R. 600 MG TAB PO SCH ×2 (08:35→21:09)
[2017-11-03] MEDS: DULoxetine HCl DR 30 MG CAP PO SCH (08:35)
[2017-11-03] MEDS: VANCOMYCIN 1,500 MG/NS 500 ML IV SCH ×2 (08:35)
[2017-11-03] MEDS: BENZONATATE 100 MG CAP PO SCH ×3 (08:35→17:50)
[2017-11-03] MEDS: ASPIRIN 325 MG TAB PO SCH (08:35)
[2017-11-03] MEDS: BUDESONIDE-FORMOTEROL 160/4.5 MCG INHALER INH SCH ×2 (09:18→21:11)
[2017-11-03] MEDS: SODIUM CHLORIDE 0.9% FLUSH 10 ML FLUSH IV FLUSH SCH ×3 (09:20→21:09)
[2017-11-03] MEDS: ENOXAPARIN SODIUM 30 MG/0.3 ML SYRINGE SQ SCH (12:40)
--- NOTE | 2017-11-03 13:35 | HHI.PR ---
Subjective Remarks minimal cough, occasional few wheeze on exam no diarrhea no complains Objective Vitals Vital Signs Date Time Temp Pulse Resp B/P (MAP) Pulse Ox O2 Delivery O2 Flow Rate FiO2 11/03/17 08:33 94 Nasal Cannula 3.00 11/03/17 08:00 70 11/03/17 07:00 Nasal Cannula 3.00 11/03/17 04:40 95 Nasal Cannula 3.00 11/03/17 04:00 Nasal Cannula 4.00 11/03/17 04:00 97.9 70 18 150/79 (102) 92 11/03/17 04:00 62 11/03/17 00:03 94 Nasal Cannula 3.00 11/03/17 00:00 Nasal Cannula 4.00 11/03/17 00:00 77 11/02/17 23:49 97.8 79 18 154/82 (106) 92 11/02/17 20:23 96 Nasal Cannula 3.00 11/02/17 20:00 97.9 75 19 170/86 (114) 92 11/02/17 20:00 Nasal Cannula 4.00 11/02/17 20:00 70 11/02/17 17:00 91 11/02/17 16:00 98.2 82 20 161/80 (107) 92 I/O 11/02/17 11/02/17 11/02/17 11/03/17 11/03/17 11/03/17 07:00 15:00 23:00 07:00 15:00 23:00 Intake Total 240 ml 500 ml 1255 ml 480 ml Balance 240 ml 500 ml 1255 ml 480 ml Intake Oral 240 ml 240 ml 480 ml IV Total 500 ml 1015 ml # Voids 6 4 3 # Bowel Movements 1 1 0 Result Diagram: 11/02/17 1041 11/03/17 0536 Imaging Last Impressions Central Venous Line 11/02/17 0000 Signed Impressions: Service Date/Time: Thursday, November 02, 2017 14:08 - CONCLUSION: Uncomplicated line placement as above. Robert Navarro MD Thoracic Spine MRI 11/01/17 0000 Signed Impressions: Service Date/Time: Wednesday, November 01, 2017 17:21 - CONCLUSION: There is heterogeneous enhancement T11 and T12 with surrounding perivertebral edema and dural enhancement anterior and posterior to the cord. A well-defined mass is not seen. Intervertebral disc signal intensity is normal without enhancement to suggest discitis, however an osteomyelitis or other underlying infectious process should be excluded. Valente Prasad MD Lumbar Spine X-Ray 11/01/17 0000 Signed Impressions: Service Date/Time: Wednesday, November 01, 2017 18:18 - CONCLUSION: No acute disease. Valente Prasad MD Lumbar Spine MRI 11/01/17 0000 Signed Impressions: Service Date/Time: Wednesday, November 01, 2017 17:21 - CONCLUSION: Abnormal signal involving the dura in the lower thoracic and upper lumbar spine with heterogeneous enhancement of T11 and T12 suggest underlying infectious process/osteomyelitis. No obvious epidural collections at this time.. Valente Prasad MD Chest X-Ray 10/30/172031 Signed Impressions: Service Date/Time: Monday, October 30, 2017 21:48 - CONCLUSION: No acute disease. Domenic Davis MD Objective Remarks awake and alert, + pain with movement of legs/trunk anicteric no rales-+ few inspiratory wheezes, regular rhythm abdomen flabby, soft, nontender extremities- moves both LE spontaneously but with difficulty and pain and some jerking with flexion no edema, + pain of the back whenever she tries to move her legs- right more than left - some sudden jerking movement in an effort to bend legs +++ DTrs, grossly sensory intact thumb- with superficial dry wound - A/P Problem List: (1) COPD (chronic obstructive pulmonary disease) ICD Code: J44.9 - Chronic obstructive pulmonary disease Status: Chronic (2) Hypoxia ICD Code: R09.02 - Hypoxia Status: Acute (3) Chronic back pain ICD Code: M54.9 - Dorsalgia, unspecified; G89.29 - Other chronic pain Status: Acute (4) MRSA bacteremia ICD Code: R78.81 - Bacteremia Assessment and Plan This is a 47-year-old female with history of COPD presenting with shortness of breath. Now found to be MRSA bacteremic. MRSA sepsis due to OM/discitis of the Lumbar spines= persistent bacteremia- repeat cultures from 11/02 ++ History of livido reticularis - ID ff -on Vancomycin -repeat blood cultures pending - Echo ordered - PT daily - repeat Blood cultures in 1-2 days to ensure clearance Leukocytosis- WBC up - increase like steroid contributing factor COPD exacerbation- feeling better- though with some occasional wheezing * Continue Solu-Medrol 40 mg-- decrease to q 8 * Continue DuoNeb- give scheduled * Continue Symbicort * Continue Singulair 02 prn Chronic lower back pain * Continue patient's home medication of Dilaudid in order to prevent withdrawal * Continue patient's medication of Valium * Norflex twice day Lovenox for DVT prophylaxis Discharge Planning - Problem Qualifiers (1) Chronic back pain: Qualified Codes: M54.5 - Low back pain; G89.29 - Other chronic pain Greg Graves MD Nov 03, 2017 13:35
--- NOTE | 2017-11-03 16:47 | ECHRPT ---
Indication: Endocarditis CONCLUSIONS The left ventricular systolic function is low normal with an estimated ejection fraction in the rang e of 50- 55%. Trace mitral valve regurgitation. There is trace tricuspid valve regurgitation. BP: 178 / 90 HR: 77 Rhythm: Sinus MEASUREMENTS (Male / Female) Normal Values Technical Quality:Poor 2D ECHO LV Diastolic Diameter PLAX 5.1 cm 4.2 - 5.9 / 3.9 - 5.3 cm LV Systolic Diameter PLAX 3.8 cm IVS Diastolic Thickness 0.8 cm 0.6 - 1.0 / 0.6 - 0.9 cm LVPW Diastolic Thickness 0.8 cm 0.6 - 1.0 / 0.6 - 0.9 cm LV Relative Wall Thickness 0.3 RV Internal Dim ED PLAX 3.0 cm LVOT Diameter 1.9 cm LA Systolic Diameter LX 4.2 cm 3.0 - 4.0 / 2.7 - 3.8 cm M-MODE Aortic Root Diameter MM 2.5 cm LA Systolic Diameter MM 3.8 cm LA Ao Ratio MM 1.5 AV Cusp Separation MM 1.4 cm DOPPLER AV Peak Velocity 165.0 cm/s AV Peak Gradient 10.9 mmHg LVOT Peak Velocity 105.0 cm/s LVOT Peak Gradient 4.4 mmHg AV Area Cont Eq pk 1.8 cm MV Area PHT 3.7 cm Mitral E Point Velocity 102.0 cm/s Mitral A Point Velocity 102.0 cm/s Mitral E to A Ratio 1.0 LV E' Lateral Velocity 10.4 cm/s Mitral E to LV E' Lateral Ratio 9.8 LV E' Septal Velocity 8.2 cm/s Mitral E to LV E' Septal Ratio 12.5 FINDINGS LEFT VENTRICLE The left ventricular systolic function is low normal with an estimated ejection fraction in the rang e of 50- 55%. Wall thickness is normal. Normal left ventricular size. RIGHT VENTRICLE Normal right ventricular size and systolic function. LEFT ATRIUM The left atrial size is mildly dilated. RIGHT ATRIUM The right atrial size is normal. ATRIAL SEPTUM Normal atrial septal thickness without atrial level shunting by limited color doppler interrogation. AORTA The aortic root and proximal ascending aorta are normal in size on limited imaging. MITRAL VALVE Structurally normal mitral valve. Trace mitral valve regurgitation. AORTIC VALVE Trileaflet aortic valve. No aortic valve stenosis or regurgitation. TRICUSPID VALVE Structurally normal tricuspid valve. No tricuspid valve stenosis. There is trace tricuspid valve regurgitation. PULMONARY VALVE The pulmonary valve is not well visualized. VESSELS The inferior vena cava is normal in size. PERICARDIUM No pericardial effusion. Jayesh Venegas DO (Electronically Signed) Final Date:03 November 2017 16:46
[2017-11-03] MEDS: VANCOMYCIN INJ 2,000 MG in SODIUM CHLORID 0.9% 500 ML INJ 500 ML IV SCH (17:50)
--- NOTE | 2017-11-03 18:42 | HHI.IDPN ---
Subjective Subjective Remarks ID X Cover for Dr. Velez Patient seen and examined with Dr. Pettit Patient is a 47-year-old female, with known history of asthma, presented to the hospital complaining of severe low back pain for 3 days, with shortness of breath. She has some cough but she was afraid to cough because it worsens her back pain. She was also having fever and chills. Denies any chest pain, or any urinary complaints. She's had some constipation. The pain in her back goes like it's muscular, but it is now coming shooting pain that goes up her upper spine. 2 blood cultures done on admission are now reported as growing MRSA. Her chest x-rays normal. He has been getting worse in the back. Her WBC is elevated. She is getting Decadron and Levaquin for her pulmonary problem. 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 She had an admission back in August for labial abscess and the culture had MRSA. She was not bacteremic at that time. Infectious disease consultation has been requested to evaluate the patient. Notes reviewed patient is afebrile wbc elevated but patient on IV steroid for AECOPD Still with severe back pain Denies any saddle anesthesia, bowel/bladder incontinence. Denies any numbness/ tingling BLEs. Able to ambulate. Continues to have all positive blood cultures. Vanc trough subtherapeutic. Pharmacy adjusted dosing. MRI with some abnormality seen in T11-T12 Echo shows no veg Antibiotics Vanco Levaquin Current Medications Medications (Trade) Dose Ordered Sig/Juanpablo Route Start Time Stop Time Status Last Admin (SoluMEDROL INJ) 40 mg Q6HR IV PUSH 10/31/17 00:00 11/02/17 05:33 (Duoneb Neb) 1 ampule Q2HR NEB PRN NEB 10/30/17 22:45 (Mucinex Er) 600 mg BID PO 10/31/17 09:00 11/02/17 09:21 (NS Flush) 2 ml UNSCH PRN IV FLUSH 10/30/17 22:45 (NS Flush) 2 ml BID IV FLUSH 10/31/17 09:00 11/02/17 09:24 (Zofran Inj) 4 mg Q6H PRN IVP 3/30/18 22:45 (Tylenol) 650 mg Q6H PRN PO 10/30/17 22:45 10/31/17 07:11 (Alyssa-Colace) 1 tab BID PO 10/31/17 09:00 11/02/17 09:21 (Milk Of Magnesia Liq) 30 ml Q12H PRN PO 10/30/17 22:45 (Senokot) 17.2 mg Q12H PRN PO 10/30/17 22:45 10/31/17 07:41 (Dulcolax Supp) 10 mg DAILY PRN RECTAL 10/30/17 22:45 (Lactulose Liq) 30 ml DAILY PRN PO 10/30/17 22:45 (Aspirin) 325 mg DAILY PO 10/31/17 09:00 11/02/17 09:20 (Symbicort 160-4.5 Mcg Inh) 2 puff Q12HR INH 10/31/17 09:00 11/02/17 09:21 (Cymbalta Dr) 30 mg DAILY PO 10/31/17 09:00 11/02/17 09:21 (Dilaudid) 4 mg Q4H PRN PO 10/30/17 22:45 11/02/17 09:29 (Singulair) 10 mg HS PO 10/31/17 21:00 11/01/17 21:41 (Valium) 5 mg Q8H PRN PO 10/30/17 23:00 11/02/17 05:32 (Levaquin) 750 mg DAILY PO 11/01/17 09:00 11/07/17 23:00 11/02/17 09:21 (Tessalon) 100 mg TID PO 10/31/17 13:00 11/02/17 09:21 (Flexeril) 5 mg Q8H PRN PO 10/31/17 10:45 11/02/17 09:29 (Lovenox Inj) 30 mg Q24H SQ 10/31/17 11:00 11/01/17 11:05 (Pill Splitter) 1 ea UNSCH PRN OTHER 10/31/17 11:00 (Norflex Inj) 60 mg Q12H IM 11/01/17 20:00 11/02/17 09:16 Pharmacy Profile Note 0 ml @ 0 mls/hr UNSCH OTHER 11/01/17 11:15 Vancomycin HCl 1500 mg/Sodium Chloride 515 ml @ 257.5 mls/ hr Q12H IV 11/01/17 20:00 11/02/17 09:21 Miscellaneous Information SPECIFIC LAB TO BE DRAWN:VA... 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 COPD. GERD. Obesity. 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 Labial abscess, drained Past Surgical History Screws / plats in left elbow Left breast abscess drainage I and D labial abscess (Katherine Nuno) Allergies: Coded Allergies: No Known Allergies (Verified Adverse Reaction, Unknown, 09/05/17) Objective . Vital Signs Date Time Temp Pulse Resp B/P (MAP) Pulse Ox O2 Delivery O2 Flow Rate FiO2 11/03/17 12:00 77 11/03/17 08:33 94 Nasal Cannula 3.00 11/03/17 08:00 70 11/03/17 07:00 Nasal Cannula 3.00 11/03/17 04:40 95 Nasal Cannula 3.00 11/03/17 04:00 Nasal Cannula 4.00 11/03/17 04:00 97.9 70 18 150/79 (102) 92 11/03/17 04:00 62 11/03/17 00:03 94 Nasal Cannula 3.00 11/03/17 00:00 Nasal Cannula 4.00 11/03/17 00:00 77 11/02/17 23:49 97.8 79 18 154/82 (106) 92 11/02/17 20:23 96 Nasal Cannula 3.00 11/02/17 20:00 97.9 75 19 170/86 (114) 92 11/02/17 20:00 Nasal Cannula 4.00 11/02/17 20:00 70 11/03/17 11/03/17 11/04/17 15:00 23:00 07:00 Intake Total 1030 ml Balance 1030 ml IV Total 1030 ml . Laboratory Tests Test 11/02/17 10:41 White Blood Count 19.7 TH/MM3 Red Blood Count 5.52 MIL/MM3 Hemoglobin 12.9 GM/DL Hematocrit 40.4 % Mean Corpuscular Volume 73.2 FL Mean Corpuscular Hemoglobin 23.4 PG Mean Corpuscular Hemoglobin Concent 32.0 % Red Cell Distribution Width 16.9 % Platelet Count 175 TH/MM3 Mean Platelet Volume 9.7 FL Erythrocyte Sedimentation Rate 38 mm/hr Laboratory Tests Test 11/02/17 10:41 11/02/17 11:00 11/03/17 05:36 Blood Urea Nitrogen 24 MG/DL Creatinine 0.64 MG/DL 0.59 MG/DL Random Glucose 142 MG/DL Calcium Level 8.7 MG/DL Sodium Level 132 MEQ/L Potassium Level 4.1 MEQ/L Chloride Level 96 MEQ/L Carbon Dioxide Level 30.2 MEQ/L Anion Gap 6 MEQ/L Estimat Glomerular Filtration Rate 99 ML/MIN 109 ML/MIN C-Reactive Protein 11.00 MG/DL Lactic Acid Level 1.0 mmol/L Microbiology Date/Time Source Procedure Growth Status 11/02/17 10:41 Blood Peripheral Aerobic Blood Culture - Preliminary Gram Positive Cocci Resulted 11/02/17 10:41 Anaerobic Blood Culture - Preliminary Gram Positive Cocci Resulted 11/01/17 15:22 Blood Peripheral Aerobic Blood Culture - Final S. Aureus Mrsa Complete 11/01/17 15:22 Anaerobic Blood Culture - Final S. Aureus Mrsa Complete Imaging s Thoracic Spine MRI 11/01/17 0000 Signed Impressions: Service Date/Time: Wednesday, November 01, 2017 17:21 - CONCLUSION: There is heterogeneous enhancement T11 and T12 with surrounding perivertebral edema and dural enhancement anterior and posterior to the cord. A well-defined mass is not seen. Intervertebral disc signal intensity is normal without enhancement to suggest discitis, however an osteomyelitis or other underlying infectious process should be excluded. Valente Prasad MD Lumbar Spine X-Ray 11/01/17 0000 Signed Impressions: Service Date/Time: Wednesday, November 01, 2017 18:18 - CONCLUSION: No acute disease. Valente Prasad MD Lumbar Spine MRI 11/01/17 0000 Signed Impressions: Service Date/Time: Wednesday, November 01, 2017 17:21 - CONCLUSION: Abnormal signal involving the dura in the lower thoracic and upper lumbar spine with heterogeneous enhancement of T11 and T12 suggest underlying infectious process/osteomyelitis. No obvious epidural collections at this time.. Valente Prasad MD Chest X-Ray 10/30/172031 Signed Impressions: Service Date/Time: Monday, October 30, 2017 21:48 - CONCLUSION: No acute disease. Domenic Davis MD Physical Exam GENERAL: WDWN obese female, looks less acutely ill, still with severe back pain, not in respiratory distress. Awake and alert. SKIN: Warm and dry. No generalized rash, no ecchymoses and no evidence of embolic lesions. Has brownish pigmentation in both lower legs HEAD: Atraumatic. Normocephalic. EYES: [place] conjunctiva. No petechia or hemorrhage. Pupils equal, round and reactive to light. Extraocular movements full and intact. No scleral icterus. No injection or drainage. EARS, NOSE AND THROAT: Nose without bleeding or purulent nasal discharge. No sinus tenderness. Mucous membranes pink and moist. No oral lesions noted. No exudate. No oral thrush. NECK: Trachea midline. Supple and not tender, no meningeal signs CARDIOVASCULAR: Regular rate and rhythm. No murmurs, rubs or gallops heard RESPIRATORY: Wheezing noted. ABDOMEN: Soft, non-tender, nondistended. Bowel sounds present and normoactive. No guarding. No rebound. No organomegaly. EXTREMITIES: No clubbing, cyanosis, or edema. No joint effusion, has good ROM. No calf tenderness. Well perfused and warm. NEUROLOGICAL: Awake and alert. Cranial nerves grossly intact. Motor grossly within normal limits. PSYCHIATRIC: Normal affect, calm and cooperative. LINE: No evidence of infection (Katherine Nuno) Assessment & Plan Remarks IMPRESSION MRSA sepsis, source, likely secondary to T11-T12 osteo - ?endocarditis, echo neg veg. - baseline ESR 38, CRP 11 Elevated white count, likely steroid rxn Severe low back pain, ?abscess, discitis, osteo COPD exacerbation Prior Hx labial abscess Aug 2017 Hx livedo vasculopathy RECOMMENDATION Continue IV Vanco, target trough 15-20. Trough subtherapeutic. Pharmacy adjusted dose. Repeat Blood CX in am. Echo negative for veg, if BCX persistently positive, will likely need KIESHA On IV solumedrol for COPD exacerbation with elevated white count Follow C/S Monitor temps Monitor progress Continue to monitor kidney function Explained plan to patient (Katherine Nuno) Remarks The exam, history, and the medical decision-making described in the above note were completed with the assistance of the mid-level provider. I reviewed and agree with the findings presented. I attest that I had a [id number] encounter with the patient on the same day, and personally performed and documented my assessment and findings in the medical record. History briefly reviewed. Patient known to me from prior admission. after labial surgery did really well in groin area. Recent approx 1 month back had lower ext infected ulcers Fevers and night sweats for 1 month or more and back pain Appears alert Mild wheezing noted. On Breathing Rx Recs: CT chest with contrast CT Abd Pelvis with contrast Continue Vanco IV (target 15-20) Continue levaquin for now. If bacteremia persists may need change in regimen. Follow cultures follow clinically. (Moira Pettit MD) Katherine Nuno Nov 03, 2017 18:42 Moira Pettit MD Nov 03, 2017 19:00
[2017-11-03] MEDS ORDERED: DIATRIZOATE MEGLUM/DIATRIZOATE SOD 9 ML CUP PO ONE (19:45)
[2017-11-03] MEDS: MONTELUKAST SODIUM 10 MG TAB PO SCH (21:09)
[2017-11-03] MEDS ORDERED: IOHEXOL 350 MG/ML 10 ML VIAL (for RAD DIAG) IVCONTRAST ONE (22:44)
--- NOTE | 2017-11-03 22:58 | RADRPT ---
EXAM DATE/TIME: 11/03/2017 22:37 [facility] COMPARISON: No previous studies available for comparison. INDICATIONS : Lower abdomen and back pain, evaluate for abscess. IV CONTRAST: 100 cc Omnipaque 350 (iohexol) IV ; Cumulative dose for multiple exams. ORAL CONTRAST: Partial prescribed oral contrast ingested. RADIATION DOSE: 20.48 CTDIvol (mGy) ; Combined studies - Thorax/Abdomen/Pelvis MEDICAL HISTORY : Ulcers. Gastroesophageal reflux disease. Chronic obstructive pulmonary disease.Labial abscess. SURGICAL HISTORY : section. ENCOUNTER: Initial ACUITY: 3 days PAIN SCALE: 9/10 LOCATION: Bilateral lower quadrant TECHNIQUE: Volumetric scanning of the abdomen and pelvis was performed. Using automated exposure control and ad justment of the mA and/or kV according to patient size, radiation dose was kept as low as reasonably achievable to obtain optimal diagnostic quality images. DICOM format image data is available electro nically for review and comparison. FINDINGS: Small bilateral pleural effusions with compressive atelectasis at the lung bases. No acute findings in the liver, spleen, adrenals, kidneys or pancreas. No calcified gallstones or myriam iary ductal dilatation. There is moderate constipation. No free air or free fluid. CONCLUSION: 1. Small bilateral pleural effusions with mild basilar atelectasis the lungs. No acute findings withi n the abdomen and pelvis. Moderate constipation of the right colon. Melchor Caceres MD on November 03, 2017 at 22:51 Board Certified Radiologist. This report was verified electronically.
--- NOTE | 2017-11-03 23:27 | RADRPT ---
EXAM DATE/TIME: 11/03/2017 22:37 [facility] COMPARISON: No previous studies available for comparison. INDICATIONS : Shortness of breath. IV CONTRAST: 100 cc Omnipaque 350 (iohexol) IV ; Cumulative dose for multiple exams. RADIATION DOSE: 20.48 CTDIvol (mGy) ; Combined studies - Thorax/Abdomen/Pelvis MEDICAL HISTORY : Chronic obstructive pulmonary disease. Emphysema. Ulcers.GERD. SURGICAL HISTORY : section. ENCOUNTER: Initial ACUITY: 3 days PAIN SCALE: 0/10 LOCATION: chest TECHNIQUE: Volumetric scanning of the chest was performed. Using automated exposure control and adjustment of t he mA and/or kV according to patient size, radiation dose was kept as low as reasonably achievable to obtain optimal diagnostic quality images. DICOM format image data is available electronically for review and comparison. Follow-up recommendations for detected pulmonary nodules are based at a minimum on nodule size and pa tient risk factors according to Fleischner Society Guidelines. FINDINGS: LUNGS: There are is mild posterior base atelectasis adjacent small effusions. Patchy minimal airspace infilt rate elsewhere in the lungs bilaterally. Multiple small parenchymal lung nodules are also identified, the largest several approaching a centimeter in size. PLEURA: Tiny bilateral effusions MEDIASTINUM: The heart and great vessels demonstrate no acute abnormality. There is no mediastinal or hilar lymph adenopathy. AXILLAE: Within normal limits. No lymphadenopathy. SKELETAL: Within normal limits for patient age. MISCELLANEOUS: The visualized upper abdominal organs demonstrate no acute abnormality. CONCLUSION: Minimal effusions. Mild basilar atelectasis. Patchy areas of minimal airspace infiltrate. Multiple sm all parenchymal lung nodules which should be followed Domenic Pulido MD on November 03, 2017 at 23:21 Board Certified Radiologist. This report was verified electronically.
[2017-11-04] VITALS (8 sets, daily range): BP systolic 151–177; BP diastolic 82–104; PULSE 60–86; RESP 19–22; TEMP 97.3–98.1; O2SAT 92–96
[2017-11-04] MEDS: HYDROmorphone HCL 4 MG TAB PO PRN ×6 (01:39→21:17)
[2017-11-04] MEDS: CYCLOBENZAPRINE HCL 10 MG TAB PO PRN ×3 (01:40→17:07)
[2017-11-04] MEDS: RESP: ALBUTEROL 2.5 MG/IPRATROPIUM 0.5 MG NEB (SCH) NEB ×3 (03:25→20:00)
[2017-11-04] MEDS: VANCOMYCIN INJ 2,000 MG in SODIUM CHLORID 0.9% 500 ML INJ 500 ML IV SCH ×2 (05:29→19:05)
[2017-11-04] MEDS: methylPREDNISolone SOD SUCC 40 MG/1 ML VIAL IV PUSH SCH ×3 (05:29→21:18)
[2017-11-04] MEDS: DIAZEPAM 5 MG TAB PO PRN ×3 (05:29→21:17)
[2017-11-04] MEDS: ORPHENADRINE INJ 60 MG/2 ML AMP IM SCH (08:06)
[2017-11-04] MEDS: DULoxetine HCl DR 30 MG CAP PO SCH (08:14)
[2017-11-04] MEDS: DOCUSATE SODIUM 50 MG/SENNA 8.6 MG TAB PO SCH (08:14)
[2017-11-04] MEDS: guaiFENesin E.R. 600 MG TAB PO SCH ×2 (08:14→21:17)
[2017-11-04] MEDS: LEVOFLOXACIN 750 MG TAB PO SCH (08:14)
[2017-11-04] MEDS: BENZONATATE 100 MG CAP PO SCH ×3 (08:14→17:07)
[2017-11-04] MEDS: ASPIRIN 325 MG TAB PO SCH (08:14)
[2017-11-04] MEDS: SODIUM CHLORIDE 0.9% FLUSH 10 ML FLUSH IV FLUSH SCH ×3 (08:19→21:18)
[2017-11-04] MEDS: BUDESONIDE-FORMOTEROL 160/4.5 MCG INHALER INH SCH ×2 (08:19→21:21)
[2017-11-04] MEDS: ENOXAPARIN SODIUM 30 MG/0.3 ML SYRINGE SQ SCH (11:40)
--- NOTE | 2017-11-04 13:15 | HHI.IDPN ---
Subjective Subjective Remarks Patient seen and examined with Dr. Wilver Mckeon for Dr. Velez Patient is a 47-year-old female, with known history of asthma, presented to the hospital complaining of severe low back pain for 3 days, with shortness of breath. She has some cough but she was afraid to cough because it worsens her back pain. She was also having fever and chills. Denies any chest pain, or any urinary complaints. She's had some constipation. The pain in her back goes like it's muscular, but it is now coming shooting pain that goes up her upper spine. 2 blood cultures done on admission are now reported as growing MRSA. Her chest x-rays normal. He has been getting worse in the back. Her WBC is elevated. She is getting Decadron and Levaquin for her pulmonary problem. 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 She had an admission back in August for labial abscess and the culture had MRSA. She was not bacteremic at that time. Infectious disease consultation has been requested to evaluate the patient. Notes reviewed patient is afebrile wbc elevated but patient on IV steroid for AECOPD Still with severe back pain but reports some mild improvement reports cough but no sputum production feels her breathing has improved no rash no diarrhea Denies any saddle anesthesia, bowel/bladder incontinence. Denies any numbness/ tingling BLEs. Able to ambulate. States she is able to get a little easier. Continues to have all positive blood cultures. Repeat BCX since Vancomycin dose increase pending MRI with some abnormality seen in T11-T12 Echo shows no veg Antibiotics Vanco Levaquin Current Medications Medications (Trade) Dose Ordered Sig/Juanpablo Route Start Time Stop Time Status Last Admin (SoluMEDROL INJ) 40 mg Q6HR IV PUSH 10/31/17 00:00 11/02/17 05:33 (Duoneb Neb) 1 ampule Q2HR NEB PRN NEB 10/30/17 22:45 (Mucinex Er) 600 mg BID PO 10/31/17 09:00 11/02/17 09:21 (NS Flush) 2 ml UNSCH PRN IV FLUSH 10/30/17 22:45 (NS Flush) 2 ml BID IV FLUSH 10/31/17 09:00 11/02/17 09:24 (Zofran Inj) 4 mg Q6H PRN IVP 10/30/17 22:45 (Tylenol) 650 mg Q6H PRN PO 10/30/17 22:45 10/31/17 07:11 (Alyssa-Colace) 1 tab BID PO 10/31/17 09:00 11/02/17 09:21 (Milk Of Magnesia Liq) 30 ml Q12H PRN PO 10/30/17 22:45 (Senokot) 17.2 mg Q12H PRN PO 10/30/17 22:45 10/31/17 07:41 (Dulcolax Supp) 10 mg DAILY PRN RECTAL 10/30/17 22:45 (Lactulose Liq) 30 ml DAILY PRN PO 10/30/17 22:45 (Aspirin) 325 mg DAILY PO 10/31/17 09:00 11/02/17 09:20 (Symbicort 160-4.5 Mcg Inh) 2 puff Q12HR INH 10/31/17 09:00 11/02/17 09:21 (Cymbalta Dr) 30 mg DAILY PO 10/31/17 09:00 11/02/17 09:21 (Dilaudid) 4 mg Q4H PRN PO 10/30/17 22:45 11/02/17 09:29 (Singulair) 10 mg HS PO 10/31/17 21:00 11/01/17 21:41 (Valium) 5 mg Q8H PRN PO 10/30/17 23:00 11/02/17 05:32 (Levaquin) 750 mg DAILY PO 11/01/17 09:00 11/07/17 23:00 11/02/17 09:21 (Tessalon) 100 mg TID PO 10/31/17 13:00 11/02/17 09:21 (Flexeril) 5 mg Q8H PRN PO 10/31/17 10:45 11/02/17 09:29 (Lovenox Inj) 30 mg Q24H SQ 10/31/17 11:00 11/01/17 11:05 (Pill Splitter) 1 ea UNSCH PRN OTHER 10/31/17 11:00 (Norflex Inj) 60 mg Q12H IM 4/1/18 20:00 11/02/17 09:16 Pharmacy Profile Note 0 ml @ 0 mls/hr UNSCH OTHER 11/01/17 11:15 Vancomycin HCl 1500 mg/Sodium Chloride 515 ml @ 257.5 mls/ hr Q12H IV 11/01/17 20:00 11/02/17 09:21 Miscellaneous Information SPECIFIC LAB TO BE DRAWN:VA... 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 COPD. GERD. Obesity. 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 Labial abscess, drained Past Surgical History Screws / plats in left elbow Left breast abscess drainage I and D labial abscess (Katherine Nuno) Allergies: Coded Allergies: No Known Allergies (Verified Adverse Reaction, Unknown, 09/05/17) Objective . Vital Signs Date Time Temp Pulse Resp B/P (MAP) Pulse Ox O2 Delivery O2 Flow Rate FiO2 11/04/17 12:00 97.8 78 21 156/95 (115) 93 11/04/17 08:00 98.1 73 20 151/90 (110) 92 11/04/17 04:00 69 11/04/17 04:00 Nasal Cannula 3.00 11/04/17 04:00 97.3 60 19 164/95 (118) 95 11/04/17 00:00 61 11/04/17 00:00 Nasal Cannula 3.00 11/04/17 00:00 97.5 61 19 177/98 (124) 96 11/03/17 20:00 Nasal Cannula 3.00 11/03/17 20:00 63 11/03/17 20:00 98.0 61 17 176/97 (123) 95 11/03/17 19:29 96 Nasal Cannula 3.00 11/03/17 17:00 65 11/03/17 16:00 98.8 68 20 160/87 (111) 93 . Laboratory Tests Test 11/03/17 05:36 Creatinine 0.59 MG/DL Estimat Glomerular Filtration Rate 109 ML/MIN Microbiology Date/Time Source Procedure Growth Status 11/04/17 09:08 Blood Peripheral Aerobic Blood Culture Pending Received 11/04/17 09:08 Blood Peripheral Anaerobic Blood Culture Pending Received 11/04/17 05:30 Blood Peripheral Aerobic Blood Culture Pending Received 11/04/17 05:30 Blood Peripheral Anaerobic Blood Culture Pending Received 11/02/17 10:41 Blood Peripheral Aerobic Blood Culture - Final S. Aureus Mrsa Complete 11/02/17 10:41 Anaerobic Blood Culture - Final S. Aureus Mrsa Complete 11/01/17 15:22 Blood Peripheral Aerobic Blood Culture - Final S. Aureus Mrsa Complete 11/01/17 15:22 Anaerobic Blood Culture - Final S. Aureus Mrsa Complete Imaging s Thoracic Spine MRI 11/01/17 0000 Signed Impressions: Service Date/Time: Wednesday, November 01, 2017 17:21 - CONCLUSION: There is heterogeneous enhancement T11 and T12 with surrounding perivertebral edema and dural enhancement anterior and posterior to the cord. A well-defined mass is not seen. Intervertebral disc signal intensity is normal without enhancement to suggest discitis, however an osteomyelitis or other underlying infectious process should be excluded. Valente Prasad MD Lumbar Spine X-Ray 11/01/17 0000 Signed Impressions: Service Date/Time: Wednesday, November 01, 2017 18:18 - CONCLUSION: No acute disease. Valente Prasad MD Lumbar Spine MRI 11/01/17 0000 Signed Impressions: Service Date/Time: Wednesday, November 01, 2017 17:21 - CONCLUSION: Abnormal signal involving the dura in the lower thoracic and upper lumbar spine with heterogeneous enhancement of T11 and T12 suggest underlying infectious process/osteomyelitis. No obvious epidural collections at this time.. Valente Prasad MD Chest X-Ray 10/30/172031 Signed Impressions: Service Date/Time: Monday, October 30, 2017 21:48 - CONCLUSION: No acute disease. Domenic Davis MD Physical Exam GENERAL: WDWN obese female, looks less acutely ill, still with severe back pain, not in respiratory distress. Awake and alert. Lying in bed. SKIN: Warm and dry. No generalized rash, no ecchymoses and no evidence of embolic lesions. Has brownish pigmentation on both lower legs HEAD: Atraumatic. Normocephalic. EYES: [place] conjunctiva. No petechia or hemorrhage. Pupils equal, round and reactive to light. Extraocular movements full and intact. No scleral icterus. No injection or drainage. EARS, NOSE AND THROAT: Nose without bleeding or purulent nasal discharge. No sinus tenderness. Mucous membranes pink and moist. No oral lesions noted. No exudate. No oral thrush. NECK: Trachea midline. Supple and not tender, no meningeal signs CARDIOVASCULAR: Regular rate and rhythm. No murmurs, rubs or gallops heard RESPIRATORY: Wheezing noted. ABDOMEN: Soft, non-tender, nondistended. Bowel sounds present and normoactive. No guarding. No rebound. No organomegaly. EXTREMITIES: No clubbing, cyanosis, or edema. No joint effusion, has good ROM. No calf tenderness. Well perfused and warm. NEUROLOGICAL: Awake and alert. Cranial nerves grossly intact. Motor grossly within normal limits. PSYCHIATRIC: Normal affect, calm and cooperative. LINE: No evidence of infection (Katherine Nnuo) Assessment & Plan Remarks IMPRESSION MRSA sepsis, source, likely secondary to T11-T12 osteo - ?endocarditis, echo neg veg. - baseline ESR 38, CRP 11 Bilateral pleural effusions - minimal Lung nodules -Multiple small parenchymal lung nodules noted on CT of the chest, recommended follow-up, ?emboli Elevated white count, likely steroid rxn Severe low back pain, ?abscess, discitis, osteo COPD exacerbation Prior Hx labial abscess Aug 2017 Hx livedo vasculopathy RECOMMENDATION Continue IV Vanco, target trough 15-20. Trough subtherapeutic. Pharmacy adjusted dose. Repeat Blood CX pending. Echo negative for veg, if BCX persistently positive, will likely need KIESHA On IV solumedrol for COPD exacerbation with elevated white count Incentive spirometry/acapella at bedside, encourage use Follow C/S Monitor temps Monitor progress Continue to monitor kidney function Explained plan to patient (Katherine Nuno) Remarks The exam, history, and the medical decision-making described in the above note were completed with the assistance of the mid-level provider. I reviewed and agree with the findings presented. I attest that I had a [id number] encounter with the patient on the same day, and personally performed and documented my assessment and findings in the medical record. Patient seen and examined independently. Complains of back pain. Reported to Primary MD by pt: says pain meds being addressed. No fevers CT chest reviewed: ? emboli vs nodules. Recs Continue Vanco IV target 15-20 if despite maintaining target at 15-20 she remains bacteremic may need KIESHA and change of meds to Daptomycin Follow cultures follow clinically. (Moira Pettit MD) Katherine Nuno Nov 04, 2017 13:15 Moira Pettit MD Nov 04, 2017 17:42
--- NOTE | 2017-11-04 13:26 | HHI.PR ---
Subjective Remarks breathing better, no chest discomfort main complain is low back pain patient on chronic pain meds- Dilaudid 4 mg q 4 chronic constipation- had a small BM this am no vaginal discharge Objective Vitals Vital Signs Date Time Temp Pulse Resp B/P (MAP) Pulse Ox O2 Delivery O2 Flow Rate FiO2 11/04/17 12:00 97.8 78 21 156/95 (115) 93 11/04/17 08:00 98.1 73 20 151/90 (110) 92 11/04/17 04:00 69 11/04/17 04:00 Nasal Cannula 3.00 11/04/17 04:00 97.3 60 19 164/95 (118) 95 11/04/17 00:00 61 11/04/17 00:00 Nasal Cannula 3.00 11/04/17 00:00 97.5 61 19 177/98 (124) 96 11/03/17 20:00 Nasal Cannula 3.00 11/03/17 20:00 63 11/03/17 20:00 98.0 61 17 176/97 (123) 95 11/03/17 19:29 96 Nasal Cannula 3.00 11/03/17 17:00 65 11/03/17 16:00 98.8 68 20 160/87 (111) 93 I/O 11/03/17 11/03/17 11/03/17 11/04/17 11/04/17 11/04/17 07:00 15:00 23:00 07:00 15:00 23:00 Intake Total 480 ml 1030 ml 1320 ml 360 ml Balance 480 ml 1030 ml 1320 ml 360 ml Intake Oral 480 ml 1320 ml 360 ml IV Total 1030 ml # Voids 3 3 3 # Bowel Movements 0 1 Result Diagram: 11/02/17 1041 11/03/17 0536 Imaging Last Impressions Chest CT 11/03/17 0000 Signed Impressions: Service Date/Time: Friday, November 03, 2017 22:37 - CONCLUSION: Minimal effusions. Mild basilar atelectasis. Patchy areas of minimal airspace infiltrate. Multiple small parenchymal lung nodules which should be followed Domenic Pulido MD Abdomen/Pelvis CT 11/03/17 0000 Signed Impressions: Service Date/Time: Friday, November 03, 2017 22:37 - CONCLUSION: 1. Small bilateral pleural effusions with mild basilar atelectasis the lungs. No acute findings within the abdomen and pelvis. Moderate constipation of the right colon. Melchor Caceres MD Central Venous Line 11/02/17 0000 Signed Impressions: Service Date/Time: Thursday, November 02, 2017 14:08 - CONCLUSION: Uncomplicated line placement as above. Robert Navarro MD Thoracic Spine MRI 11/01/17 0000 Signed Impressions: Service Date/Time: Wednesday, November 01, 2017 17:21 - CONCLUSION: There is heterogeneous enhancement T11 and T12 with surrounding perivertebral edema and dural enhancement anterior and posterior to the cord. A well-defined mass is not seen. Intervertebral disc signal intensity is normal without enhancement to suggest discitis, however an osteomyelitis or other underlying infectious process should be excluded. Valente Prasad MD Lumbar Spine X-Ray 11/01/17 0000 Signed Impressions: Service Date/Time: Wednesday, November 01, 2017 18:18 - CONCLUSION: No acute disease. Valente Prasad MD Lumbar Spine MRI 11/01/17 0000 Signed Impressions: Service Date/Time: Wednesday, November 01, 2017 17:21 - CONCLUSION: Abnormal signal involving the dura in the lower thoracic and upper lumbar spine with heterogeneous enhancement of T11 and T12 suggest underlying infectious process/osteomyelitis. No obvious epidural collections at this time.. Valente Prasad MD Chest X-Ray 10/30/172031 Signed Impressions: Service Date/Time: Monday, October 30, 2017 21:48 - CONCLUSION: No acute disease. Domenic Davis MD Objective Remarks awake and alert, + pain with movement of legs/trunk- anicteric no rales- no rales, no wheezing on exam regular rhythm abdomen flabby, soft, nontender extremities- moves both LE spontaneously but with difficulty and pain and some jerking with flexion no edema, + pain of the back elicited whenever she tries to move her legs- right more than left - some sudden jerking movement in an effort to bend legs +++ DTrs, grossly sensory intact thumb- with superficial dry wound - A/P Problem List: (1) COPD (chronic obstructive pulmonary disease) ICD Code: J44.9 - Chronic obstructive pulmonary disease Status: Chronic (2) Hypoxia ICD Code: R09.02 - Hypoxia Status: Acute (3) Chronic back pain ICD Code: M54.9 - Dorsalgia, unspecified; G89.29 - Other chronic pain Status: Acute (4) MRSA bacteremia ICD Code: R78.81 - Bacteremia Assessment and Plan This is a 47-year-old female with history of COPD presenting with shortness of breath. Now found to be MRSA bacteremic. MRSA sepsis due to OM/discitis of the Lumbar spines= persistent bacteremia- repeat cultures from 11/02 ++ History of livido reticularis - ID ff -on Vancomycin -repeat blood cultures pending 11/03 pending - Echo- no vegetation - PT daily Leukocytosis- WBC up - increase like steroid contributing factor COPD exacerbation- feeling better-no wheezing decrease IV solumedrol to q 12 * Continue DuoNeb- give scheduled * Continue Symbicort * Continue Singulair 02 prn Chronic lower back pain * Continue patient's home medication of Dilaudid 4 mg po q 4 * will give 0.5 mg Dilaudid q 3 prn for pain breakthrough * Continue patient's medication of Valium Chronic consitpation dulcolax 10 mg supp x 1 colace 100 mg po bid Elvated BP readings- ? secodnary to pain- denies any history of HTN clonidine 0,1 mg po q 6 prn for elevated BPs ff trend- consider starting meds scheduled like amlodipine if consistently elevated change to 2 gm Na diet Lovenox for DVT prophylaxis Problem Qualifiers (1) Chronic back pain: Qualified Codes: M54.5 - Low back pain; G89.29 - Other chronic pain Greg Garves MD Nov 04, 2017 13:26
[2017-11-04] MEDS ORDERED: BISACODYL 10 MG SUPP RECTAL ONE (13:30)
[2017-11-04] MEDS ORDERED: HYDROmorphone HCL PF 2 MG/ML VIAL IV PUSH PRN (16:15)
[2017-11-04] MEDS: MONTELUKAST SODIUM 10 MG TAB PO SCH (21:17)
[2017-11-04] MEDS: DOCUSATE SODIUM 100 MG CAP PO SCH (21:18)
[2017-11-05] VITALS (11 sets, daily range): BP systolic 125–166; BP diastolic 69–96; PULSE 72–84; RESP 18–20; TEMP 97.1–98.3; O2SAT 93–97
[2017-11-05] MEDS: CYCLOBENZAPRINE HCL 10 MG TAB PO PRN ×3 (01:01→17:28)
[2017-11-05] MEDS: HYDROmorphone HCL 4 MG TAB PO PRN ×6 (01:01→21:36)
[2017-11-05] MEDS: RESP: ALBUTEROL 2.5 MG/IPRATROPIUM 0.5 MG NEB (SCH) NEB ×6 (03:44→19:39)
[2017-11-05] MEDS: cloNIDine HCL 0.1 MG TAB PO PRN (05:10)
[2017-11-05] MEDS: DIAZEPAM 5 MG TAB PO PRN ×3 (05:10→21:37)
[2017-11-05] MEDS ORDERED: PHARMACY ORDERED LAB ONE (05:45)
[2017-11-05] MEDS: VANCOMYCIN INJ 2,000 MG in SODIUM CHLORID 0.9% 500 ML INJ 500 ML IV SCH (05:59)
[2017-11-05 06:24] LABS: CREATININE 1.33 MG/DL (0.50-1.00)
[2017-11-05] MEDS: SODIUM CHLORIDE 0.9% FLUSH 10 ML FLUSH IV FLUSH SCH ×3 (09:00→21:40)
[2017-11-05] MEDS: BENZONATATE 100 MG CAP PO SCH ×3 (09:03→17:28)
[2017-11-05] MEDS: guaiFENesin E.R. 600 MG TAB PO SCH ×2 (09:03→21:38)
[2017-11-05] MEDS: DOCUSATE SODIUM 100 MG CAP PO SCH ×2 (09:03→21:38)
[2017-11-05] MEDS: DULoxetine HCl DR 30 MG CAP PO SCH (09:04)
[2017-11-05] MEDS: LEVOFLOXACIN 750 MG TAB PO SCH (09:04)
[2017-11-05] MEDS: ASPIRIN 325 MG TAB PO SCH (09:04)
[2017-11-05] MEDS: methylPREDNISolone SOD SUCC 40 MG/1 ML VIAL IV PUSH SCH ×2 (09:04→21:39)
[2017-11-05] MEDS: BUDESONIDE-FORMOTEROL 160/4.5 MCG INHALER INH SCH ×2 (09:04→21:39)
--- NOTE | 2017-11-05 12:09 | HHI.IDPN ---
Subjective Subjective Remarks Patient seen and examined with Dr. Wilver Mckeon for Dr. Velez Patient is a 47-year-old female, with known history of asthma, presented to the hospital complaining of severe low back pain for 3 days, with shortness of breath. She has some cough but she was afraid to cough because it worsens her back pain. She was also having fever and chills. Denies any chest pain, or any urinary complaints. She's had some constipation. The pain in her back goes like it's muscular, but it is now coming shooting pain that goes up her upper spine. 2 blood cultures done on admission are now reported as growing MRSA. Her chest x-rays normal. He has been getting worse in the back. Her WBC is elevated. She is getting Decadron and Levaquin for her pulmonary problem. 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 She had an admission back in August for labial abscess and the culture had MRSA. She was not bacteremic at that time. Infectious disease consultation has been requested to evaluate the patient. Patient states she is feeling better and feels improved. Reports cough, expectorating yellow sputum. States no increased shortness of breath/dyspnea. States she continues to have back pain, reports relief with heating pad. Feels generalized weakness, but able to ambulate. Reports sweating on and off, but no fevers, no chills. Denies any saddle anesthesia, bowel/bladder incontinence. Denies any numbness/tingling BLEs. Denies abdominal pain, cramping, nausea, vomiting, diarrhea. Notes reviewed. Continues to have all positive blood cultures. Repeat BCX since Vancomycin dose increase with gram-positive cocci preliminary MRI showed abnormal signal involving the dura in the lower thoracic and upper lumbar spine with heterogenous enhancement of T11 and T12 suggest underlying infectious process/osteomyelitis. No obvious epidural collection. Echo showed EF 50-55%. Wall thickness normal. Normal left ventricular. Trace MVR. Trace TVR. No vegetation Antibiotics Vanco Levaquin Current Medications Medications (Trade) Dose Ordered Sig/Juanpablo Route Start Time Stop Time Status Last Admin (SoluMEDROL INJ) 40 mg Q6HR IV PUSH 10/31/17 00:00 11/02/17 05:33 (Duoneb Neb) 1 ampule Q2HR NEB PRN NEB 10/30/17 22:45 (Mucinex Er) 600 mg BID PO 10/31/17 09:00 11/02/17 09:21 (NS Flush) 2 ml UNSCH PRN IV FLUSH 10/30/17 22:45 (NS Flush) 2 ml BID IV FLUSH 10/31/17 09:00 11/02/17 09:24 (Zofran Inj) 4 mg Q6H PRN IVP 10/30/17 22:45 (Tylenol) 650 mg Q6H PRN PO 10/30/17 22:45 10/31/17 07:11 (Alyssa-Colace) 1 tab BID PO 10/31/17 09:00 11/02/17 09:21 (Milk Of Magnesia Liq) 30 ml Q12H PRN PO 10/30/17 22:45 (Senokot) 17.2 mg Q12H PRN PO 10/30/17 22:45 10/31/17 07:41 (Dulcolax Supp) 10 mg DAILY PRN RECTAL 10/30/17 22:45 (Lactulose Liq) 30 ml DAILY PRN PO 10/30/17 22:45 (Aspirin) 325 mg DAILY PO 10/31/17 09:00 11/02/17 09:20 (Symbicort 160-4.5 Mcg Inh) 2 puff Q12HR INH 10/31/17 09:00 11/02/17 09:21 (Cymbalta Dr) 30 mg DAILY PO 10/31/17 09:00 11/02/17 09:21 (Dilaudid) 4 mg Q4H PRN PO 10/30/17 22:45 11/02/17 09:29 (Singulair) 10 mg HS PO 10/31/17 21:00 11/01/17 21:41 (Valium) 5 mg Q8H PRN PO 10/30/17 23:00 11/02/17 05:32 (Levaquin) 750 mg DAILY PO 11/01/17 09:00 11/07/17 23:00 11/02/17 09:21 (Tessalon) 100 mg TID PO 10/31/17 13:00 11/02/17 09:21 (Flexeril) 5 mg Q8H PRN PO 10/31/17 10:45 11/02/17 09:29 (Lovenox Inj) 30 mg Q24H SQ 10/31/17 11:00 11/01/17 11:05 (Pill Splitter) 1 ea UNSCH PRN OTHER 10/31/17 11:00 (Norflex Inj) 60 mg Q12H IM 11/01/17 20:00 11/02/17 09:16 Pharmacy Profile Note 0 ml @ 0 mls/hr UNSCH OTHER 11/01/17 11:15 Vancomycin HCl 1500 mg/Sodium Chloride 515 ml @ 257.5 mls/ hr Q12H IV 11/01/17 20:00 11/02/17 09:21 Miscellaneous Information SPECIFIC LAB TO BE DRAWN:[facility]... 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 COPD. GERD. Obesity. 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 Labial abscess, drained Past Surgical History Screws / plats in left elbow Left breast abscess drainage I and D labial abscess (Stacey Miles) Allergies: Coded Allergies: No Known Allergies (Verified Adverse Reaction, Unknown, 09/05/17) Objective . Vital Signs Date Time Temp Pulse Resp B/P (MAP) Pulse Ox O2 Delivery O2 Flow Rate FiO2 11/05/17 09:03 97.4 72 18 166/85 (112) 96 11/05/17 08:39 96 Nasal Cannula 3.00 11/05/17 05:05 98.3 76 20 154/96 (115) 95 11/05/17 05:05 Nasal Cannula 3.00 11/05/17 04:00 76 11/05/17 01:05 Nasal Cannula 2.00 11/05/17 01:05 97.1 73 18 160/90 (113) 97 11/05/17 00:00 75 11/04/17 20:50 84 4/4/18 20:43 94 Nasal Cannula 3.00 11/04/17 20:00 98.1 86 22 160/82 (108) 94 11/04/17 20:00 Nasal Cannula 2.00 11/04/17 16:00 97.5 77 20 172/104 (126) 95 11/04/17 12:00 97.8 78 21 156/95 (115) 93 . Laboratory Tests Test 11/05/17 05:45 Creatinine 1.33 MG/DL Estimat Glomerular Filtration Rate 43 ML/MIN Microbiology Date/Time Source Procedure Growth Status 11/04/17 09:08 Blood Peripheral Aerobic Blood Culture - Preliminary Gram Positive Cocci Resulted 11/04/17 09:08 Anaerobic Blood Culture - Preliminary Gram Positive Cocci Resulted 11/04/17 05:30 Blood Peripheral Aerobic Blood Culture - Preliminary Gram Positive Cocci Resulted 11/04/17 05:30 Anaerobic Blood Culture - Preliminary Gram Positive Cocci Resulted Imaging s Thoracic Spine MRI 11/01/17 0000 Signed Impressions: Service Date/Time: Wednesday, November 01, 2017 17:21 - CONCLUSION: There is heterogeneous enhancement T11 and T12 with surrounding perivertebral edema and dural enhancement anterior and posterior to the cord. A well-defined mass is not seen. Intervertebral disc signal intensity is normal without enhancement to suggest discitis, however an osteomyelitis or other underlying infectious process should be excluded. Valente Prasad MD Lumbar Spine X-Ray 11/01/17 0000 Signed Impressions: Service Date/Time: Wednesday, November 01, 2017 18:18 - CONCLUSION: No acute disease. Valente Prasad MD Lumbar Spine MRI 11/01/17 0000 Signed Impressions: Service Date/Time: Wednesday, November 01, 2017 17:21 - CONCLUSION: Abnormal signal involving the dura in the lower thoracic and upper lumbar spine with heterogeneous enhancement of T11 and T12 suggest underlying infectious process/osteomyelitis. No obvious epidural collections at this time.. Valente Prasad MD Chest X-Ray 10/30/172031 Signed Impressions: Service Date/Time: Monday, October 30, 2017 21:48 - CONCLUSION: No acute disease. Domenic Davis MD Physical Exam GENERAL: WDWN obese female, looks less acutely ill, still with back pain but improving, not in respiratory distress. Awake and alert. Lying in bed. SKIN: Warm and dry. No generalized rash, no ecchymoses and no evidence of embolic lesions. Has brownish pigmentation on both lower legs HEAD: Atraumatic. Normocephalic. EYES: [place] conjunctiva. No petechia or hemorrhage. Pupils equal, round and reactive to light. Extraocular movements full and intact. No scleral icterus. No injection or drainage. EARS, NOSE AND THROAT: Nose without bleeding or purulent nasal discharge. No sinus tenderness. Mucous membranes pink and moist. No oral lesions noted. No exudate. No oral thrush. NECK: Trachea midline. Supple and not tender, no meningeal signs CARDIOVASCULAR: Regular rate and rhythm. No murmurs, rubs or gallops heard RESPIRATORY: Wheezing noted. Diminished breath sounds. ABDOMEN: Soft, non-tender, nondistended. Bowel sounds present and normoactive. No guarding. No rebound. No organomegaly. EXTREMITIES: No clubbing, cyanosis, or edema. No joint effusion, has good ROM. No calf tenderness. Positive pulses. Warm NEUROLOGICAL: Awake and alert. Cranial nerves grossly intact. Motor grossly within normal limits. Speech is normal PSYCHIATRIC: Normal affect, calm and cooperative. LINE: No evidence of infection. Right subclavian TLC. (Stacey Miles) Assessment & Plan Remarks IMPRESSION MRSA sepsis, source, likely secondary to T11-T12 osteo - ?endocarditis, echo neg veg. - baseline ESR 38, CRP 11 Bilateral pleural effusions - minimal Lung nodules -Multiple small parenchymal lung nodules noted on CT of the chest, recommended follow-up, ?emboli Elevated white count, likely steroid rxn Severe low back pain, ?abscess, discitis, osteo -MRI showed abnormal signal involving the dura in the lower thoracic and upper lumbar spine with heterogenous enhancement of T11 and T12 suggest underlying infectious process/osteomyelitis. No obvious epidural collection -Improving with heat application. COPD exacerbation Prior Hx labial abscess Aug 2017 Hx livedo vasculopathy RECOMMENDATION On IV Vanco, target trough 15-20. VANCO trough 30.1. [employer] 1.33, GFR 43 -this might be dose related however creatinine trending up will switch over to daptomycin as planned. Echo negative for veg. Repeat blood cultures showing gram-positive cocci preliminary result, discussed with patient she will likely need KIESHA Cardiology consult for KIESHA On IV Solumedrol for COPD exacerbation with elevated white count, follow WBC trend will repeat CBC tomorrow Incentive spirometry/acapella at bedside, encourage use Monitor temps Monitor progress clinically Continue to monitor kidney function, elevated creatinine today 1.33, will check LFTs will switch over to daptomycin as patient continues to have positive blood cultures Check CK Daptomycin IV, DC Vanco Will consider adding Rifampin, Teflaro Further recommendations to follow Explained plan to patient (Stacey Miles) Remarks The exam, history, and the medical decision-making described in the above note were completed with the assistance of the mid-level provider. I reviewed and agree with the findings presented. I attest that I had a [id number] encounter with the patient on the same day, and personally performed and documented my assessment and findings in the medical record. Line placed in midst of bacteremia may need to be changed if bacteremia persists for source control Reviewed imaging Recommend KIESHA due to persistent bacteremia. DC Vanco IV Monitor Cr and Ur Output closely. If worsening renal function may need to get Nephro on board. Start Dapto IV Start Rifampin oral Start Teflaro IV (asp: persistent bacteremia for initial bacteremia control phase) LFTs ok. Follow CK while on Dapto IV Follow cultures Follow clinically. dw patient and significant other. (Moira Pettit MD) Stacey Miles Nov 05, 2017 12:09 Moira Pettit MD Nov 05, 2017 23:21
[2017-11-05] MEDS: ENOXAPARIN SODIUM 30 MG/0.3 ML SYRINGE SQ SCH (12:27)
[2017-11-05 13:08] LABS: ALBUMIN 1.9 GM/DL (3.4-5.0); BICARBONATE 26.3 MEQ/L (21.0-32.0); CALCIUM 7.8 MG/DL (8.5-10.1); CREATININE 1.33 MG/DL (0.50-1.00); DIRECT BILIRUBIN ADULT 0.1 MG/DL (0.0-0.2); INDIRECT BILIRUBIN 0.3 MG/DL (0.0-0.8); TOTAL BILIRUBIN ADULT 0.4 MG/DL (0.2-1.0)
--- NOTE | 2017-11-05 15:07 | HHI.PR ---
Subjective Remarks Follow-up for MRSA bacteremia, discitis. Patient is currently doing well. She reports sweating off and on. No nausea vomiting. Objective Vitals Vital Signs Date Time Temp Pulse Resp B/P (MAP) Pulse Ox O2 Delivery O2 Flow Rate FiO2 11/05/17 12:25 97.9 82 20 165/90 (115) 93 11/05/17 09:03 97.4 72 18 166/85 (112) 96 11/05/17 08:39 96 Nasal Cannula 3.00 11/05/17 05:05 98.3 76 20 154/96 (115) 95 11/05/17 05:05 Nasal Cannula 3.00 11/05/17 04:00 76 11/05/17 01:05 Nasal Cannula 2.00 11/05/17 01:05 97.1 73 18 160/90 (113) 97 11/05/17 00:00 75 11/04/17 20:50 84 11/04/17 20:43 94 Nasal Cannula 3.00 11/04/17 20:00 98.1 86 22 160/82 (108) 94 11/04/17 20:00 Nasal Cannula 2.00 11/04/17 16:00 97.5 77 20 172/104 (126) 95 I/O 11/04/17 11/04/17 11/04/17 11/05/17 11/05/17 11/05/17 07:00 15:00 23:00 07:00 15:00 23:00 Intake Total 360 ml 1550 ml 800 ml Balance 360 ml 1550 ml 800 ml Intake Oral 360 ml 1000 ml 800 ml IV Total 550 ml # Voids 3 4 4 # Bowel Movements 1 Result Diagram: 11/02/17 1041 11/05/17 0545 Imaging Last Impressions Chest CT 11/03/17 0000 Signed Impressions: Service Date/Time: Friday, November 03, 2017 22:37 - CONCLUSION: Minimal effusions. Mild basilar atelectasis. Patchy areas of minimal airspace infiltrate. Multiple small parenchymal lung nodules which should be followed Domenic Pulido MD Abdomen/Pelvis CT 11/03/17 0000 Signed Impressions: Service Date/Time: Friday, November 03, 2017 22:37 - CONCLUSION: 1. Small bilateral pleural effusions with mild basilar atelectasis the lungs. No acute findings within the abdomen and pelvis. Moderate constipation of the right colon. Melchor Caceres MD Central Venous Line 11/02/17 0000 Signed Impressions: Service Date/Time: Thursday, November 02, 2017 14:08 - CONCLUSION: Uncomplicated line placement as above. Robert Navarro MD Thoracic Spine MRI 11/01/17 0000 Signed Impressions: Service Date/Time: Wednesday, November 01, 2017 17:21 - CONCLUSION: There is heterogeneous enhancement T11 and T12 with surrounding perivertebral edema and dural enhancement anterior and posterior to the cord. A well-defined mass is not seen. Intervertebral disc signal intensity is normal without enhancement to suggest discitis, however an osteomyelitis or other underlying infectious process should be excluded. Valente Prasad MD Lumbar Spine X-Ray 11/01/17 0000 Signed Impressions: Service Date/Time: Wednesday, November 01, 2017 18:18 - CONCLUSION: No acute disease. Valente Prasad MD Lumbar Spine MRI 11/01/17 0000 Signed Impressions: Service Date/Time: Wednesday, November 01, 2017 17:21 - CONCLUSION: Abnormal signal involving the dura in the lower thoracic and upper lumbar spine with heterogeneous enhancement of T11 and T12 suggest underlying infectious process/osteomyelitis. No obvious epidural collections at this time.. Valente Prasad MD Chest X-Ray 10/30/172031 Signed Impressions: Service Date/Time: Monday, October 30, 2017 21:48 - CONCLUSION: No acute disease. Domeinc Davis MD Objective Remarks GENERAL: Alert, oriented 3, NAD. SKIN: Warm and dry. HEAD: Normocephalic. EYES: No scleral icterus. No injection or drainage. NECK: Supple, trachea midline. No JVD or lymphadenopathy. CARDIOVASCULAR: Regular rate and rhythm without murmurs, gallops, or rubs. RESPIRATORY: Breath sounds equal bilaterally. No accessory muscle use. GASTROINTESTINAL: Abdomen soft, non-tender, nondistended. MUSCULOSKELETAL: No cyanosis, or edema. BACK: Nontender without obvious deformity. No CVA tenderness. Procedures Echocardiogram 11/03/2017 The left ventricular systolic function is low normal with an estimated ejection fraction in the range of 50- 55%. Trace mitral valve regurgitation. There is trace tricuspid valve regurgitation. A/P Problem List: (1) COPD (chronic obstructive pulmonary disease) ICD Code: J44.9 - Chronic obstructive pulmonary disease Status: Chronic (2) Hypoxia ICD Code: R09.02 - Hypoxia Status: Acute (3) Chronic back pain ICD Code: M54.9 - Dorsalgia, unspecified; G89.29 - Other chronic pain Status: Acute (4) MRSA bacteremia ICD Code: R78.81 - Bacteremia Assessment and Plan This is a 47-year-old female with a PMH of COPD, Anxiety, Depression and Chronic Back Pain was brought to the ER on 10/30/2017 by EMS secondary to significant SOB and back pain. Persistent MRSA bacteremia Probable T11-T12 osteomyelitis Echo negative for any vegetation. Due to persistent bacteremia, patient will likely need KIESHA. Cardiology has been consulted. Infectious disease following. Continue vancomycin with trough 15-20. Acute kidney injury -creatinine increased from 0.65 on admission to 1.33 on 2017. Possibly due to vancomycin. Pharmacy is monitoring. Suspected pneumonia -continue levofloxacin 750 mg p.o. daily until 11/07/2017. Hypertension - we will start patient on nifedipine 60 mg daily. COPD -continue DuoNeb, Symbicort, Mucinex. Also currently on Solu-Medrol 40 mg IV every 12 hours. Chronic back pain -continue Flexeril, Valium, hydromorphone as needed. Full code. Lovenox. Problem Qualifiers (1) Chronic back pain: Qualified Codes: M54.5 - Low back pain; G89.29 - Other chronic pain Kyra Lowe DO Nov 05, 2017 3:07 pm
[2017-11-05] MEDS ORDERED: NIFEdipine 30 MG SUSTAINED RELEASE TAB PO ONE (16:30)
--- NOTE | 2017-11-05 18:03 | MB ---
cc: Gigi Cisneros MD, Glenn H MD DATE: 11/05/2017 REASON FOR CONSULTATION: Transesophageal echocardiography. HISTORY OF PRESENT ILLNESS: The patient is a 47-year-old white female with a history of COPD, livedoid vasculopathy, sleep apnea, gastroesophageal reflux disease who was admitted mainly with complaints of low back pain and shortness of breath. Subsequent workup has revealed MRSA bacteremia as well as possible T11-T12 osteomyelitis. She is now referred for transesophageal echocardiography. The patient denies chest pain, palpitations, dizziness, syncope, near syncope, change in chronic intermittent pedal edema. She has felt somewhat increased shortness of breath compared to baseline in the last couple of weeks. She has had no recent surgeries or dental procedures. PAST MEDICAL HISTORY: 1. COPD. 2. Livedoid vasculopathy. 3. Sleep apnea. 4. Gastroesophageal reflux disease. CURRENT CARDIAC MEDICATIONS: 1. Nifedipine XL 60 mg p.o. daily. 2. Lovenox 30 mg subcutaneously q. 24 hours. 3. Aspirin 325 mg p.o. daily. ALLERGIES: NO KNOWN DRUG ALLERGIES FAMILY HISTORY: Noncontributory. SOCIAL HISTORY: The patient quit smoking about 2 years ago. She denies alcohol abuse. She denies IV drug abuse. REVIEW OF SYSTEMS: As in the history of present illness, otherwise negative or noncontributory. She also denies headache, abdominal pain, diarrhea, melena, dyspepsia. PHYSICAL EXAMINATION: VITAL SIGNS: Blood pressure 125/82 with a pulse of 78, respirations 20. GENERAL: She is a well-developed, well-nourished white female, in no acute distress. NECK: Jugular venous pressure is normal. Carotid pulses are 2+ bilaterally and without bruits. CHEST: Reveals clear lungs bello. CARDIAC: She has a regular rhythm and rate without S3, S4, or murmur. ABDOMEN: She has a soft, nontender abdomen. Bowel sounds are present. There is no definite hepatosplenomegaly. EXTREMITIES: Reveals no clubbing, cyanosis, or edema. LABORATORY DATA: WBC 19.7, hemoglobin 12.9, platelets 175. Potassium 4.3, BUN 46, creatinine 1.33. IMAGING STUDIES: Chest x-ray shows no acute disease. IMPRESSION: A 47-year-old white female with a history of chronic obstructive pulmonary disease, livedoid vasculopathy, sleep apnea, admitted with back pain and shortness of breath with workup revealing methicillin resistant Staphylococcus aureus bacteremia as well as possible T11-T12 osteomyelitis. She has been now referred for transesophageal echocardiography. I would agree with the need for this test. Her transthoracic echocardiogram is technically difficult. No definite abnormalities are seen on transthoracic echo. The nature of transesophageal echocardiography and potential risks have been outlined. She agrees to proceed. RECOMMENDATION: Transesophageal echocardiography in the morning. MD USAMA Vazquez//patty , 05:20 PM , 05:49 PM MTDRod
[2017-11-05] MEDS: MONTELUKAST SODIUM 10 MG TAB PO SCH (21:38)
[2017-11-05] MEDS: RIFAMPIN 150 MG CAP PO SCH (21:38)
[2017-11-05] MEDS: CEFTAROLINE INJ 600 MG in SODIUM CHLORIDE 0.9% INJ 100 ML IV SCH (21:39)
[2017-11-05] MEDS: SODIUM CHLORIDE 0.9% IV SCH (21:40)
[2017-11-05] MEDS: DAPTOMYCIN IV SCH (21:40)
[2017-11-06] VITALS (7 sets, daily range): BP systolic 123–154; BP diastolic 71–81; PULSE 68–89; RESP 20–22; TEMP 97.4–98.1; O2SAT 94–98
[2017-11-06] MEDS: CYCLOBENZAPRINE HCL 10 MG TAB PO PRN ×3 (01:35→17:16)
[2017-11-06] MEDS: HYDROmorphone HCL 4 MG TAB PO PRN ×6 (01:35→21:38)
[2017-11-06] MEDS: RESP: ALBUTEROL 2.5 MG/IPRATROPIUM 0.5 MG NEB (SCH) NEB ×6 (03:02→20:50)
[2017-11-06] MEDS: DIAZEPAM 5 MG TAB PO PRN ×3 (05:34→21:38)
[2017-11-06 05:54] LABS: HEMATOCRIT 39.7 % (35.0-46.0); MEAN CELL VOLUME 72.7 FL (80.0-100.0); MEAN CORPUSCULAR HEMOGLOBIN 23.8 PG (27.0-34.0); MEAN CORPUSCULAR HGB CONC 32.7 % (32.0-36.0); MEAN PLATELET VOLUME 8.6 FL (7.0-11.0); PLATELET COUNT 217 TH/MM3 (150-450); RED BLOOD COUNT 5.45 MIL/MM3 (4.00-5.30); RED CELL DISTRIBUTION WIDTH 17.1 % (11.6-17.2); WHITE BLOOD COUNT 18.4 TH/MM3 (4.0-11.0)
[2017-11-06 06:29] LABS: BICARBONATE 24.4 MEQ/L (21.0-32.0); CALCIUM 7.7 MG/DL (8.5-10.1); CREATININE 2.99 MG/DL (0.50-1.00); RANDOM VANCOMYCIN 35.7 COMMENT
[2017-11-06 08:07] LABS: BANDS 1 % (0-6); LYMPHOCYTES 8 % (9-44); MONOCYTES 1 % (0-8); NEUTROPHIL # MANUAL DIFF 16.7 TH/MM3 (1.8-7.7); POLYS (SEG NEUTROPHILS) 90 % (16-70)
[2017-11-06 08:10] LABS: OVALOCYTES 1+ (NORMAL); TOXIC GRANULATION 1+ (NORMAL)
[2017-11-06 08:11] LABS: KERATOCYTES OCC (NORMAL)
[2017-11-06] MEDS: CEFTAROLINE INJ 600 MG in SODIUM CHLORIDE 0.9% INJ 100 ML IV SCH (08:31)
[2017-11-06] MEDS: SODIUM CHLORIDE 0.9% FLUSH 10 ML FLUSH IV FLUSH SCH ×3 (09:00→21:39)
[2017-11-06] MEDS: methylPREDNISolone SOD SUCC 40 MG/1 ML VIAL IV PUSH SCH ×2 (09:46→21:37)
[2017-11-06] MEDS: guaiFENesin E.R. 600 MG TAB PO SCH ×2 (09:47→21:38)
[2017-11-06] MEDS: ASPIRIN 325 MG TAB PO SCH (09:47)
[2017-11-06] MEDS: DULoxetine HCl DR 30 MG CAP PO SCH (09:47)
[2017-11-06] MEDS: BENZONATATE 100 MG CAP PO SCH ×3 (09:47→17:15)
[2017-11-06] MEDS: NIFEdipine 60 MG SUSTAINED RELEASE TAB PO SCH (09:47)
[2017-11-06] MEDS: DOCUSATE SODIUM 100 MG CAP PO SCH ×2 (09:48→21:38)
[2017-11-06] MEDS: BUDESONIDE-FORMOTEROL 160/4.5 MCG INHALER INH SCH ×2 (09:52→21:39)
--- NOTE | 2017-11-06 10:44 | PD.CARD.PN ---
Subjective Subjective Remarks Mild dyspnea this morning. No CP, palpitations. Objective Medications Item Value Date Time Nifedipine 60 mg 11/06/17 0900 (Procardia Xl) DAILY/PO 11/06/17 0947 Enoxaparin Sodium 30 mg 10/31/17 1100 (Lovenox Inj) Q24H/SQ 11/05/17 1227 Aspirin 325 mg 10/31/17 0900 (Aspirin) DAILY/PO 11/06/17 0947 Current Medications Medications (Trade) Dose Ordered Sig/Juanpablo Route Start Time Stop Time Status Last Admin (Duoneb Neb) 1 ampule Q2HR NEB PRN NEB 10/30/17 22:45 (Mucinex Er) 600 mg BID PO 10/31/17 09:00 11/06/17 09:47 (NS Flush) 2 ml UNSCH PRN IV FLUSH 10/30/17 22:45 (NS Flush) 2 ml BID IV FLUSH 10/31/17 09:00 11/06/17 09:00 (Zofran Inj) 4 mg Q6H PRN IVP 10/30/17 22:45 (Tylenol) 650 mg Q6H PRN PO 10/30/17 22:45 10/31/17 07:11 (Milk Of Magnesia Liq) 30 ml Q12H PRN PO 10/30/17 22:45 (Senokot) 17.2 mg Q12H PRN PO 10/30/17 22:45 10/31/17 07:41 (Dulcolax Supp) 10 mg DAILY PRN RECTAL 10/30/17 22:45 (Lactulose Liq) 30 ml DAILY PRN PO 10/30/17 22:45 (Aspirin) 325 mg DAILY PO 10/31/17 09:00 11/06/17 09:47 (Symbicort 160-4.5 Mcg Inh) 2 puff Q12HR INH 10/31/17 09:00 11/06/17 09:52 (Cymbalta Dr) 30 mg DAILY PO 10/31/17 09:00 11/06/17 09:47 (Dilaudid) 4 mg Q4H PRN PO 10/30/17 22:45 11/06/17 09:47 (Singulair) 10 mg HS PO 10/31/17 21:00 11/05/17 21:38 (Valium) 5 mg Q8H PRN PO 10/30/17 23:00 11/06/17 05:34 (Tessalon) 100 mg TID PO 10/31/17 13:00 11/06/17 09:47 (Flexeril) 5 mg Q8H PRN PO 10/31/17 10:45 11/06/17 09:47 (Lovenox Inj) 30 mg Q24H SQ 10/31/17 11:00 11/05/17 12:27 (Pill Splitter) 1 ea UNSCH PRN OTHER 10/31/17 11:00 (NS Flush) DAILY IV FLUSH 11/03/17 09:00 11/06/17 09:00 (NS Flush) UNSCH PRN IV FLUSH 11/02/17 14:15 (Dilaudid Pf Inj) 0.5 mg Q3H PRN IV PUSH 11/04/17 16:15 (SoluMEDROL INJ) 40 mg Q12HR IV PUSH 11/04/17 21:00 11/06/17 09:46 (Colace) 100 mg BID PO 11/04/17 21:00 11/06/17 09:48 (Catapres) 0.1 mg Q6H PRN PO 11/04/17 13:45 11/05/17 05:10 (Duoneb Neb) 1 ampule Q4HR NEB NEB 11/05/17 16:00 11/05/17 16:17 (Procardia Xl) 60 mg DAILY PO 11/06/17 09:00 11/06/17 09:47 Daptomycin 970 mg/ Sodium Chloride 100 ml @ 200 mls/hr Q24H IV 11/05/17 21:00 11/05/17 21:40 (Rifampin) 300 mg Q12HR PO 11/05/17 21:00 11/05/17 21:38 Ceftaroline Fosamil 600 mg/ Sodium Chloride 100 ml @ 100 mls/hr Q12H IV 11/05/17 20:00 11/06/17 08:31 Vital Signs / I&O Vital Signs Date Time Temp Pulse Resp B/P (MAP) Pulse Ox O2 Delivery O2 Flow Rate FiO2 11/06/17 08:00 77 11/06/17 08:00 97.7 89 22 154/81 (105) 98 11/06/17 04:00 98.0 76 20 148/77 (100) 97 11/06/17 03:57 79 11/06/17 00:00 97.6 75 20 138/73 (94) 96 11/05/17 23:51 78 11/05/17 20:15 Nasal Cannula 3.00 11/05/17 20:11 83 11/05/17 20:00 97.4 84 18 134/69 (90) 97 11/05/17 19:36 3.00 11/05/17 16:34 97.7 78 20 125/82 (96) 95 11/05/17 12:25 97.9 82 20 165/90 (115) 93 I/O 11/05/17 11/05/17 11/05/17 11/06/17 11/06/17 11/06/17 07:00 15:00 23:00 07:00 15:00 23:00 Intake Total 800 ml 100 ml 115 ml Balance 800 ml 100 ml 115 ml Intake Oral 800 ml IV Total 100 ml 115 ml # Voids 4 Physical Exam GENERAL: Well developed, well nourished. No acute distress. CHEST: Few scattered expiratory wheezes. CARDIAC: Regular rate and rhythm without S3, S4, or murmur. ABDOMEN: Soft, nontender, no hepatosplenomegaly. Bowel sounds present. EXTREMITIES: No clubbing, cyanosis, or edema. Laboratory Laboratory Tests Test 11/06/17 05:40 White Blood Count 18.4 TH/MM3 Red Blood Count 5.45 MIL/MM3 Hemoglobin 13.0 GM/DL Hematocrit 39.7 % Mean Corpuscular Volume 72.7 FL Mean Corpuscular Hemoglobin 23.8 PG Mean Corpuscular Hemoglobin Concent 32.7 % Red Cell Distribution Width 17.1 % Platelet Count 217 TH/MM3 Mean Platelet Volume 8.6 FL CBC Comment AUTO DIFF Differential Total Cells Counted 100 Neutrophils % (Manual) 90 % Band Neutrophils % 1 % Lymphocytes % 8 % Monocytes % 1 % Neutrophils # (Manual) 16.7 TH/MM3 Differential Comment FINAL DIFF MANUAL Toxic Granulation 1+ Platelet Estimate NORMAL Platelet Morphology Comment ENLARGED Ovalocytes 1+ Keratocytes OCC Blood Urea Nitrogen 68 MG/DL Creatinine 2.99 MG/DL Random Glucose 110 MG/DL Calcium Level 7.7 MG/DL Sodium Level 131 MEQ/L Potassium Level 4.5 MEQ/L Chloride Level 96 MEQ/L Carbon Dioxide Level 24.4 MEQ/L Anion Gap 11 MEQ/L Estimat Glomerular Filtration Rate 17 ML/MIN Random Vancomycin Level 35.7 COMMENT Assessment and Plan Problem List: (1) MRSA bacteremia ICD Codes: R78.81 - Bacteremia Status: Acute Plan: Stable cardiac status. KIESHA today unremarkable. No evidence for endocarditis. LV/RV function normal. Code Status full code Gigi Cisneros MD Nov 06, 2017 10:44
--- NOTE | 2017-11-06 10:47 | ECHRPT ---
Indication: ENDOCARDITIS CONCLUSIONS Normal transesophageal echo. No evidence for endocarditis. BP: / HR: Rhythm: Technical Quality: Medications Complications Proc. Components FINDINGS LEFT VENTRICLE Normal left ventricular size and wall thickness. The left ventricular systolic function is normal wi th an estimated ejection fraction in the range of 60-65%. Normal wall motion. RIGHT VENTRICLE Normal right ventricular size and systolic function. LEFT ATRIUM The left atrial size is normal. RIGHT ATRIUM The right atrial size is normal. ATRIAL SEPTUM Normal atrial septal thickness without atrial level shunting by limited color doppler interrogation. AORTA The aortic root and proximal ascending aorta are normal in size on limited imaging. MITRAL VALVE Structurally normal mitral valve. Trace mitral regurgitation. AORTIC VALVE Trileaflet aortic valve. No aortic valve stenosis or regurgitation. TRICUSPID VALVE Structurally normal tricuspid valve. No tricuspid valve stenosis or regurgitation. VESSELS The inferior vena cava is normal in size. PULMONARY VALVE The pulmonary valve is not well visualized. PERICADIUM No pericardial effusion. Gigi Cisneros MD (Electronically Signed) Final Date:06 November 2017 10:46
[2017-11-06] MEDS: RIFAMPIN 150 MG CAP PO SCH ×2 (11:53→21:38)
[2017-11-06] MEDS: ENOXAPARIN SODIUM 30 MG/0.3 ML SYRINGE SQ SCH (14:04)
--- NOTE | 2017-11-06 15:39 | HHI.IDPN ---
Subjective Subjective Remarks Patient seen and examined with Dr. Wilver Mckeon for Dr. Velez Patient is a 47-year-old female, with known history of asthma, presented to the hospital complaining of severe low back pain for 3 days, with shortness of breath. She has some cough but she was afraid to cough because it worsens her back pain. She was also having fever and chills. Denies any chest pain, or any urinary complaints. She's had some constipation. The pain in her back goes like it's muscular, but it is now coming shooting pain that goes up her upper spine. 2 blood cultures done on admission are now reported as growing MRSA. Her chest x-rays normal. He has been getting worse in the back. Her WBC is elevated. She is getting Decadron and Levaquin for her pulmonary problem. 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 She had an admission back in August for labial abscess and the culture had MRSA. She was not bacteremic at that time. Infectious disease consultation has been requested to evaluate the patient. Notes reviewed. Overnight events noted. Patient states she feels better. Reports occasional cough, yellow sputum, small amount Reports generalized weakness Reports continued back pain however managed with pain medication, not worsening. Uses a heating pad on and off Denies increasing shortness of breath or dyspnea Denies fevers, chills. Denies nausea, vomiting, diarrhea, abdominal cramping. Denies dysuria. Denies saddle anesthesia, bowel or bladder incontinence. Denies numbness or tingling in the extremities. MRI showed abnormal signal involving the dura in the lower thoracic and upper lumbar spine with heterogenous enhancement of T11 and T12 suggest underlying infectious process/osteomyelitis. No obvious epidural collection. Echo showed EF 50-55%. Wall thickness normal. Normal left ventricular. Trace MVR. Trace TVR. No vegetation 11/04/17 Repeat BCX S. aureus MRSA 2 bottles 11/06/16 KIESHA, normal transesophageal echocardiogram. 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 COPD. GERD. Obesity. 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 Labial abscess, drained Past Surgical History Screws / plats in left elbow Left breast abscess drainage I and D labial abscess (Stacey Miles) Allergies: Coded Allergies: No Known Allergies (Verified Adverse Reaction, Unknown, 09/05/17) Objective . Vital Signs Date Time Temp Pulse Resp B/P (MAP) Pulse Ox O2 Delivery O2 Flow Rate FiO2 11/06/17 14:33 Nasal Cannula 3.00 11/06/17 12:00 94 11/06/17 12:00 97.4 79 20 152/81 (104) 94 11/06/17 08:00 77 11/06/17 08:00 97.7 89 22 154/81 (105) 98 11/06/17 04:00 98.0 76 20 148/77 (100) 97 11/06/17 03:57 79 11/06/17 00:00 97.6 75 20 138/73 (94) 96 11/05/17 23:51 78 11/05/17 20:15 Nasal Cannula 3.00 11/05/17 20:11 83 11/05/17 20:00 97.4 84 18 134/69 (90) 97 11/05/17 19:36 3.00 11/05/17 16:34 97.7 78 20 125/82 (96) 95 . Laboratory Tests Test 11/06/17 05:40 White Blood Count 18.4 TH/MM3 Red Blood Count 5.45 MIL/MM3 Hemoglobin 13.0 GM/DL Hematocrit 39.7 % Mean Corpuscular Volume 72.7 FL Mean Corpuscular Hemoglobin 23.8 PG Mean Corpuscular Hemoglobin Concent 32.7 % Red Cell Distribution Width 17.1 % Platelet Count 217 TH/MM3 Mean Platelet Volume 8.6 FL CBC Comment AUTO DIFF Differential Total Cells Counted 100 Neutrophils % (Manual) 90 % Band Neutrophils % 1 % Lymphocytes % 8 % Monocytes % 1 % Neutrophils # (Manual) 16.7 TH/MM3 Differential Comment FINAL DIFF MANUAL Toxic Granulation 1+ Platelet Estimate NORMAL Platelet Morphology Comment ENLARGED Ovalocytes 1+ Keratocytes OCC Laboratory Tests Test 11/05/17 05:45 11/06/17 05:40 Blood Urea Nitrogen 46 MG/DL 68 MG/DL Creatinine 1.33 MG/DL 2.99 MG/DL Random Glucose 111 MG/DL 110 MG/DL Total Protein 6.0 GM/DL Albumin 1.9 GM/DL Calcium Level 7.8 MG/DL 7.7 MG/DL Alkaline Phosphatase 88 U/L Aspartate Amino Transf (AST/SGOT) 24 U/L Alanine Aminotransferase (ALT/SGPT) 16 U/L Total Bilirubin 0.4 MG/DL Direct Bilirubin 0.1 MG/DL Sodium Level 135 MEQ/L 131 MEQ/L Potassium Level 4.3 MEQ/L 4.5 MEQ/L Chloride Level 99 MEQ/L 96 MEQ/L Carbon Dioxide Level 26.3 MEQ/L 24.4 MEQ/L Anion Gap 10 MEQ/L 11 MEQ/L Estimat Glomerular Filtration Rate 43 ML/MIN 17 ML/MIN Indirect Bilirubin 0.3 MG/DL Total Creatine Kinase 57 U/L C-Reactive Protein 4.81 MG/DL Microbiology Date/Time Source Procedure Growth Status 11/04/17 09:08 Blood Peripheral Aerobic Blood Culture - Final S. Aureus Mrsa Complete 11/04/17 09:08 Anaerobic Blood Culture - Final S. Aureus Mrsa Complete 11/04/17 05:30 Blood Peripheral Aerobic Blood Culture - Final S. Aureus Mrsa Complete 11/04/17 05:30 Anaerobic Blood Culture - Final S. Aureus Mrsa Complete Imaging s Thoracic Spine MRI 11/01/17 0000 Signed Impressions: Service Date/Time: Wednesday, November 01, 2017 17:21 - CONCLUSION: There is heterogeneous enhancement T11 and T12 with surrounding perivertebral edema and dural enhancement anterior and posterior to the cord. A well-defined mass is not seen. Intervertebral disc signal intensity is normal without enhancement to suggest discitis, however an osteomyelitis or other underlying infectious process should be excluded. Valente Prasad MD Lumbar Spine X-Ray 11/01/17 0000 Signed Impressions: Service Date/Time: Wednesday, November 01, 2017 18:18 - CONCLUSION: No acute disease. Valente Prasad MD Lumbar Spine MRI 11/01/17 0000 Signed Impressions: Service Date/Time: Wednesday, November 01, 2017 17:21 - CONCLUSION: Abnormal signal involving the dura in the lower thoracic and upper lumbar spine with heterogeneous enhancement of T11 and T12 suggest underlying infectious process/osteomyelitis. No obvious epidural collections at this time.. Valente Prasad MD Chest X-Ray 10/30/172031 Signed Impressions: Service Date/Time: Monday, October 30, 2017 21:48 - CONCLUSION: No acute disease. Domenic Davis MD Physical Exam GENERAL: WDWN obese female, looks less acutely ill, still with back pain but improving, not in respiratory distress. Awake and alert. Lying in bed. SKIN: Warm and dry. No generalized rash, no ecchymoses and no evidence of embolic lesions. Has brownish pigmentation on both lower legs HEAD: Atraumatic. Normocephalic. EYES: [place] conjunctiva. No petechia or hemorrhage. Pupils equal, round and reactive to light. Extraocular movements full and intact. No scleral icterus. No injection or drainage. EARS, NOSE AND THROAT: Nose without bleeding or purulent nasal discharge. No sinus tenderness. Mucous membranes pink and moist. No oral lesions noted. No exudate. No oral thrush. NECK: Trachea midline. Supple and not tender, no meningeal signs CARDIOVASCULAR: Regular rate and rhythm. No murmurs, rubs or gallops heard RESPIRATORY: Wheezing noted. Diminished breath sounds. ABDOMEN: Soft, non-tender, nondistended. Bowel sounds present and normoactive. No guarding. No rebound. No organomegaly. EXTREMITIES: No clubbing, cyanosis, or edema. No joint effusion, has good ROM. No calf tenderness. Positive pulses. Warm NEUROLOGICAL: Awake and alert. Cranial nerves grossly intact. Motor grossly within normal limits. Speech is normal PSYCHIATRIC: Normal affect, calm and cooperative. LINE: No evidence of infection. Right subclavian TLC. (Stacey Miles [facility]) Assessment & Plan Remarks Remarks MRSA sepsis, source, likely secondary to T11-T12 osteo Severe low back pain, ?abscess, discitis, osteo Rule out endocarditis -baseline ESR 38, CRP 11 -MRI showed abnormal signal involving the dura in the lower thoracic and upper lumbar spine with heterogenous enhancement of T11 and T12 suggest underlying infectious process/osteomyelitis. No obvious epidural collection -Cardiology following -11/06/16 KIESHA, normal transesophageal echocardiogram. No evidence for endocarditis -11/04/17 Repeat BCX S. aureus MRSA 2 bottles -Continue to have leukocytosis WBC 19.7 --> 18.4 Acute kidney injury -Possibly related to vancomycin use. Switch over to daptomycin Bilateral pleural effusions Underlying COPD COPD exacerbation - CT Chest minimal effusions, mild basilar atelectasis. Patchy areas of minimal airspace infiltrate. Lung nodules -Multiple small parenchymal lung nodules noted on CT of the chest, recommended follow-up, ?emboli Prior Hx labial abscess Aug 2017 Hx livedo vasculopathy Recommendations Repeat blood culture showing MRSA Continue daptomycin, rifampin, Teflaro On IV Solumedrol for COPD exacerbation, follow WBC trend Incentive spirometry/acapella at bedside, encourage use Monitor temps Monitor progress clinically Monitor kidney function. IV fluids overnight Further recommendations to follow Discussed plan with patient (Stacey Miles) Remarks The exam, history, and the medical decision-making described in the above note were completed with the assistance of the mid-level provider. I reviewed and agree with the findings presented. I attest that I had a [id number] encounter with the patient on the same day, and personally performed and documented my assessment and findings in the medical record. Cr increased likely will take a few days till Vanco eliminated from system. Vanco still high in blood. Follow urine output. Consider Nephrology consult if oliguric or Cr increases further. Continue Teflaro IV Continue Daptomycin IV Continue Rifampin oral Now been 24 hrs since change in regimen will repeat blood cultures. If this blood culture still positive central line will need to be changed. Nephro consult placed. Please consider hydration as patient has poor oral intake. Started drinking fluids since Cr went up but needs I/O closely monitored (Moira Pettit MD) Stacey Miles Nov 06, 2017 15:39 Moira Pettit MD Nov 06, 2017 16:44
--- NOTE | 2017-11-06 18:17 | HHI.PR ---
Subjective Remarks Renal function has worsened. By mouth intake has not been good. Patient is status post KIESHA today, report pending. Objective Vital Signs Date Time Temp Pulse Resp B/P (MAP) Pulse Ox O2 Delivery O2 Flow Rate FiO2 11/06/17 16:00 98.1 86 20 148/76 (100) 95 11/06/17 14:33 Nasal Cannula 3.00 11/06/17 12:00 94 11/06/17 12:00 97.4 79 20 152/81 (104) 94 11/06/17 08:00 77 11/06/17 08:00 97.7 89 22 154/81 (105) 98 11/06/17 04:00 98.0 76 20 148/77 (100) 97 11/06/17 03:57 79 11/06/17 00:00 97.6 75 20 138/73 (94) 96 11/05/17 23:51 78 11/05/17 20:15 Nasal Cannula 3.00 11/05/17 20:11 83 11/05/17 20:00 97.4 84 18 134/69 (90) 97 11/05/17 19:36 3.00 I/O 11/05/17 11/05/17 11/05/17 11/06/17 11/06/17 11/06/17 07:00 15:00 23:00 07:00 15:00 23:00 Intake Total 800 ml 100 ml 115 ml Balance 800 ml 100 ml 115 ml Intake Oral 800 ml IV Total 100 ml 115 ml # Voids 4 Result Diagram: 11/06/17 0540 11/06/17 0540 Objective Remarks GENERAL: NAD, A&Ox3 HEAD: Normocephalic. NECK: Supple, trachea midline. No lymphadenopathy. EYES: No scleral icterus. No injection or drainage. CARDIOVASCULAR: Regular rate and rhythm without murmurs, gallops, or rubs. RESPIRATORY: Breath sounds equal bilaterally. No accessory muscle use. GASTROINTESTINAL: Abdomen soft, non-tender, nondistended. MUSCULOSKELETAL: No cyanosis, or edema. SKIN: Warm and dry. NEURO: No focal neurological deficitis. A/P Problem List: (1) Bacteremia ICD Code: R78.81 - Bacteremia (2) Osteomyelitis ICD Code: M86.9 - Osteomyelitis, unspecified Assessment and Plan 47-year-old female admitted secondary to an exacerbation of back pain suspected to be T11-T12 osteomyelitis, with persisting MRSA bacteremia. 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 Continue Solu-Medrol 40 mg IV every 12 hours. Chronic back pain continue Flexeril, Valium, hydromorphone as needed. DVT prophylaxis Lovenox Robert Campbell MD Nov 06, 2017 18:17
[2017-11-06] MEDS: SODIUM CHLOR 0.9% 1000 ML INJ 1,000 ML IV SCH (18:56)
[2017-11-06] MEDS: DAPTOMYCIN IV SCH (21:38)
[2017-11-06] MEDS: MONTELUKAST SODIUM 10 MG TAB PO SCH (21:38)
[2017-11-06] MEDS: SODIUM CHLORIDE 0.9% IV SCH (21:38)
[2017-11-06] MEDS: CEFTAROLINE INJ 400 MG in SODIUM CHLORIDE 0.9% INJ 100 ML IV SCH (21:39)
[2017-11-07] VITALS (11 sets, daily range): BP systolic 109–143; BP diastolic 57–77; PULSE 70–85; RESP 16–20; TEMP 97.4–98.1; O2SAT 94–98
[2017-11-07] MEDS: RESP: ALBUTEROL 2.5 MG/IPRATROPIUM 0.5 MG NEB (SCH) NEB ×6 (00:57→20:00)
[2017-11-07] MEDS: SODIUM CHLOR 0.9% 1000 ML INJ 1,000 ML IV SCH ×3 (01:29→20:36)
[2017-11-07] MEDS: CYCLOBENZAPRINE HCL 10 MG TAB PO PRN ×3 (01:29→17:40)
[2017-11-07] MEDS: HYDROmorphone HCL 4 MG TAB PO PRN ×6 (01:29→21:51)
[2017-11-07] MEDS: DIAZEPAM 5 MG TAB PO PRN ×3 (05:40→21:51)
[2017-11-07 06:54] LABS: AUTOMATED NEUTROPHIL # 11.3 TH/MM3 (1.8-7.7); BASOPHIL % 0.2 % (0.0-2.0); EOSINOPHIL # 0.1 TH/MM3 (0-0.4); EOSINOPHIL % 0.5 % (0.0-4.0); HEMOGLOBIN 11.7 GM/DL (11.6-15.3); LYMPH % 7.9 % (9.0-44.0); MEAN CELL VOLUME 72.8 FL (80.0-100.0); MEAN CORPUSCULAR HEMOGLOBIN 23.5 PG (27.0-34.0); MEAN CORPUSCULAR HGB CONC 32.3 % (32.0-36.0); MEAN PLATELET VOLUME 8.4 FL (7.0-11.0); MONO % 5.9 % (0.0-8.0); MONOCYTE # 0.8 TH/MM3 (0-0.9); NEUT % 85.5 % (16.0-70.0); PLATELET COUNT 247 TH/MM3 (150-450); RED BLOOD COUNT 4.95 MIL/MM3 (4.00-5.30); RED CELL DISTRIBUTION WIDTH 17.1 % (11.6-17.2); WHITE BLOOD COUNT 13.3 TH/MM3 (4.0-11.0)
[2017-11-07 07:10] LABS: ALBUMIN 1.8 GM/DL (3.4-5.0); BICARBONATE 24.5 MEQ/L (21.0-32.0); CALCIUM 7.4 MG/DL (8.5-10.1); CALCIUM-PROTEIN CORRECTED 8.3 MG/DL (8.5-10.1); CREATININE 4.37 MG/DL (0.50-1.00); TOTAL BILIRUBIN ADULT 0.6 MG/DL (0.2-1.0); TOTAL PROTEIN 5.5 GM/DL (6.4-8.2)
[2017-11-07] MEDS: NIFEdipine 60 MG SUSTAINED RELEASE TAB PO SCH (09:00)
[2017-11-07] MEDS: CEFTAROLINE INJ 400 MG in SODIUM CHLORIDE 0.9% INJ 100 ML IV SCH (09:21)
[2017-11-07] MEDS: RIFAMPIN 150 MG CAP PO SCH ×2 (09:22→20:36)
[2017-11-07] MEDS: BUDESONIDE-FORMOTEROL 160/4.5 MCG INHALER INH SCH ×2 (09:22→20:36)
[2017-11-07] MEDS: DOCUSATE SODIUM 100 MG CAP PO SCH ×2 (09:23→20:36)
[2017-11-07] MEDS: guaiFENesin E.R. 600 MG TAB PO SCH ×2 (09:23→20:36)
[2017-11-07] MEDS: ASPIRIN 325 MG TAB PO SCH (09:23)
[2017-11-07] MEDS: BENZONATATE 100 MG CAP PO SCH ×3 (09:23→17:39)
[2017-11-07] MEDS: DULoxetine HCl DR 30 MG CAP PO SCH (09:23)
[2017-11-07] MEDS: SODIUM CHLORIDE 0.9% FLUSH 10 ML FLUSH IV FLUSH SCH ×3 (09:25→20:36)
[2017-11-07] MEDS: methylPREDNISolone SOD SUCC 40 MG/1 ML VIAL IV PUSH SCH ×2 (09:25→20:36)
[2017-11-07 09:29] LABS: BANDS 10 % (0-6); LYMPHOCYTES 11 % (9-44); METAMYELOCYTES 1 % (0-1); MONOCYTES 2 % (0-8); MYELOCYTES 2 % (0-0); NEUTROPHIL # MANUAL DIFF 11.3 TH/MM3 (1.8-7.7); POLYS (SEG NEUTROPHILS) 72 % (16-70)
[2017-11-07] MEDS ORDERED: LACTULOSE SYRUP 20 GM/30 ML CUP PO ONE (11:30)
--- NOTE | 2017-11-07 12:06 | HHI.PR ---
Subjective Remarks KIESHA is negative for any signs of infective endocarditis. Most recent blood cultures are pending. Blood cultures previous to this are positive for MRSA. Bacteremia needs to be negative prior to consideration for discharge. Objective Vital Signs Date Time Temp Pulse Resp B/P (MAP) Pulse Ox O2 Delivery O2 Flow Rate FiO2 11/07/17 09:20 Nasal Cannula 3.00 11/07/17 08:25 98 Nasal Cannula 3.00 11/07/17 08:00 97.8 76 16 111/57 (75) 98 11/07/17 04:00 98.1 78 20 131/68 (89) 95 11/07/17 04:00 85 11/07/17 00:58 96 Nasal Cannula 2.00 11/07/17 00:00 85 11/07/17 00:00 97.8 82 20 143/68 (93) 96 11/06/17 20:00 Nasal Cannula 3.00 11/06/17 20:00 97.6 68 21 123/71 (88) 97 11/06/17 20:00 88 11/06/17 16:00 98.1 86 20 148/76 (100) 95 11/06/17 14:33 Nasal Cannula 3.00 I/O 11/06/17 11/06/17 11/06/17 11/07/17 11/07/17 11/07/17 06:59 14:59 22:59 06:59 14:59 22:59 Intake Total 115 ml 680 ml 2329 ml Balance 115 ml 680 ml 2329 ml Intake Oral 480 ml 840 ml IV Total 115 ml 200 ml 1489 ml # Voids 6 4 # Bowel Movements 1 Result Diagram: 11/07/17 0540 11/07/17 0540 Objective Remarks GENERAL: NAD, A&Ox3 HEAD: Normocephalic. NECK: Supple, trachea midline. No lymphadenopathy. EYES: No scleral icterus. No injection or drainage. CARDIOVASCULAR: Regular rate and rhythm without murmurs, gallops, or rubs. RESPIRATORY: Breath sounds equal bilaterally. No accessory muscle use. GASTROINTESTINAL: Abdomen soft, non-tender, nondistended. MUSCULOSKELETAL: No cyanosis, or edema. SKIN: Warm and dry. NEURO: No focal neurological deficitis. A/P Problem List: (1) Bacteremia ICD Code: R78.81 - Bacteremia (2) Osteomyelitis ICD Code: M86.9 - Osteomyelitis, unspecified Assessment and Plan 47-year-old female admitted secondary to an exacerbation of back pain suspected to be T11-T12 osteomyelitis, with persisting MRSA bacteremia. Labs reviewed. Electrolytes stable. Continue to monitor labs. Labs ordered for further monitoring. Continue to monitor cultures for any signs of persisting bacteremia. Repeat cultures of bacteremia positive. Long-term plan is antibiotics at discharge, possibly IV. 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 Continue Solu-Medrol 40 mg IV every 12 hours. Chronic back pain continue Flexeril, Valium, hydromorphone as needed. DVT prophylaxis Robert Fuller MD Nov 07, 2017 12:06
[2017-11-07] MEDS: ENOXAPARIN SODIUM 30 MG/0.3 ML SYRINGE SQ SCH (12:18)
--- NOTE | 2017-11-07 16:01 | HHI.IDPN ---
Subjective Subjective Remarks Patient seen and examined with Dr. Wilver Mckeon for Dr. Velez Patient is a 47-year-old female, with known history of asthma, presented to the hospital complaining of severe low back pain for 3 days, with shortness of breath. She has some cough but she was afraid to cough because it worsens her back pain. She was also having fever and chills. Denies any chest pain, or any urinary complaints. She's had some constipation. The pain in her back goes like it's muscular, but it is now coming shooting pain that goes up her upper spine. 2 blood cultures done on admission are now reported as growing MRSA. Her chest x-rays normal. He has been getting worse in the back. Her WBC is elevated. She is getting Decadron and Levaquin for her pulmonary problem. 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 She had an admission back in August for labial abscess and the culture had MRSA. She was not bacteremic at that time. Infectious disease consultation has been requested to evaluate the patient. Notes reviewed. Patient states her back pain is a little better but feels very weak overall. Reports occasional cough with yellow sputum production states her breathing is much improved Denies any fever or chills Denies any rash Denies any new sores Denies any diarrhea Denies dysuria. Reports normal UOP. MRI showed abnormal signal involving the dura in the lower thoracic and upper lumbar spine with heterogenous enhancement of T11 and T12 suggest underlying infectious process/osteomyelitis. No obvious epidural collection. Echo showed EF 50-55%. Wall thickness normal. Normal left ventricular. Trace MVR. Trace TVR. 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 COPD. GERD. Obesity. 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 Labial abscess, drained Past Surgical History Screws / plats in left elbow Left breast abscess drainage I and D labial abscess (Katherine Nuno) Allergies: Coded Allergies: No Known Allergies (Verified Adverse Reaction, Unknown, 2/3/18) Objective . Vital Signs Date Time Temp Pulse Resp B/P (MAP) Pulse Ox O2 Delivery O2 Flow Rate FiO2 11/07/17 12:00 97.6 79 18 127/73 (91) 94 11/07/17 09:20 Nasal Cannula 3.00 11/07/17 08:25 98 Nasal Cannula 3.00 11/07/17 08:00 97.8 76 16 111/57 (75) 98 11/07/17 04:00 98.1 78 20 131/68 (89) 95 11/07/17 04:00 85 11/07/17 00:58 96 Nasal Cannula 2.00 11/07/17 00:00 85 11/07/17 00:00 97.8 82 20 143/68 (93) 96 11/06/17 20:00 Nasal Cannula 3.00 11/06/17 20:00 97.6 68 21 123/71 (88) 97 11/06/17 20:00 88 11/06/17 16:00 98.1 86 20 148/76 (100) 95 11/07/17 11/07/17 11/08/17 15:00 23:00 07:00 Intake Total 611 ml Balance 611 ml IV Total 611 ml . Laboratory Tests Test 11/06/17 05:40 11/07/17 05:40 White Blood Count 18.4 TH/MM3 13.3 TH/MM3 Red Blood Count 5.45 MIL/MM3 4.95 MIL/MM3 Hemoglobin 13.0 GM/DL 11.7 GM/DL Hematocrit 39.7 % 36.0 % Mean Corpuscular Volume 72.7 FL 72.8 FL Mean Corpuscular Hemoglobin 23.8 PG 23.5 PG Mean Corpuscular Hemoglobin Concent 32.7 % 32.3 % Red Cell Distribution Width 17.1 % 17.1 % Platelet Count 217 TH/MM3 247 TH/MM3 Mean Platelet Volume 8.6 FL 8.4 FL CBC Comment AUTO DIFF AUTO DIFF Differential Total Cells Counted 100 100 Neutrophils % (Manual) 90 % 72 % Band Neutrophils % 1 % 10 % Lymphocytes % 8 % 11 % Monocytes % 1 % 2 % Neutrophils # (Manual) 16.7 TH/MM3 11.3 TH/MM3 Differential Comment FINAL DIFF MANUAL FINAL DIFF MANUAL Toxic Granulation 1+ Platelet Estimate NORMAL NORMAL Platelet Morphology Comment ENLARGED NORMAL Ovalocytes 1+ Keratocytes OCC Neutrophils (%) (Auto) 85.5 % Lymphocytes (%) (Auto) 7.9 % Monocytes (%) (Auto) 5.9 % Eosinophils (%) (Auto) 0.5 % Basophils (%) (Auto) 0.2 % Neutrophils # (Auto) 11.3 TH/MM3 Lymphocytes # (Auto) 1.0 TH/MM3 Monocytes # (Auto) 0.8 TH/MM3 Eosinophils # (Auto) 0.1 TH/MM3 Basophils # (Auto) 0.0 TH/MM3 Eosinophils % 2 % Metamyelocytes 1 % Myelocytes 2 % Red Cell Morphology Comment NORMAL Laboratory Tests Test 11/06/17 05:40 11/07/17 05:40 Blood Urea Nitrogen 68 MG/DL 86 MG/DL Creatinine 2.99 MG/DL 4.37 MG/DL Random Glucose 110 MG/DL 82 MG/DL Calcium Level 7.7 MG/DL 7.4 MG/DL Sodium Level 131 MEQ/L 135 MEQ/L Potassium Level 4.5 MEQ/L 4.4 MEQ/L Chloride Level 96 MEQ/L 99 MEQ/L Carbon Dioxide Level 24.4 MEQ/L 24.5 MEQ/L Anion Gap 11 MEQ/L 12 MEQ/L Estimat Glomerular Filtration Rate 17 ML/MIN 11 ML/MIN Total Protein 5.5 GM/DL Albumin 1.8 GM/DL Alkaline Phosphatase 69 U/L Aspartate Amino Transf (AST/SGOT) 15 U/L Alanine Aminotransferase (ALT/SGPT) 18 U/L Total Bilirubin 0.6 MG/DL Protein Corrected Calcium 8.3 MG/DL Microbiology Date/Time Source Procedure Growth Status 11/07/17 05:40 Blood Peripheral Aerobic Blood Culture Pending Received 11/07/17 05:40 Blood Peripheral Anaerobic Blood Culture Pending Received 11/07/17 05:40 Blood Peripheral Aerobic Blood Culture Pending Received 11/07/17 05:40 Blood Peripheral Anaerobic Blood Culture Pending Received Imaging s Thoracic Spine MRI 11/01/17 0000 Signed Impressions: Service Date/Time: Wednesday, November 01, 2017 17:21 - CONCLUSION: There is heterogeneous enhancement T11 and T12 with surrounding perivertebral edema and dural enhancement anterior and posterior to the cord. A well-defined mass is not seen. Intervertebral disc signal intensity is normal without enhancement to suggest discitis, however an osteomyelitis or other underlying infectious process should be excluded. Valente Prasad MD Lumbar Spine X-Ray 11/01/17 0000 Signed Impressions: Service Date/Time: Wednesday, November 01, 2017 18:18 - CONCLUSION: No acute disease. Valente Prasad MD Lumbar Spine MRI 11/01/17 0000 Signed Impressions: Service Date/Time: Wednesday, November 01, 2017 17:21 - CONCLUSION: Abnormal signal involving the dura in the lower thoracic and upper lumbar spine with heterogeneous enhancement of T11 and T12 suggest underlying infectious process/osteomyelitis. No obvious epidural collections at this time.. Valente Prasad MD Chest X-Ray 10/30/172031 Signed Impressions: Service Date/Time: Monday, October 30, 2017 21:48 - CONCLUSION: No acute disease. Domenic Davis MD Physical Exam GENERAL: WDWN obese female, INAD. Appears lethargic. Awake. Caregiver at bedside. SKIN: Warm and dry. No generalized rash, no ecchymoses and no evidence of embolic lesions. Has brownish pigmentation on both lower legs HEAD: Atraumatic. Normocephalic. EYES: [place] conjunctiva. No petechia or hemorrhage. Extraocular movements full and intact. No scleral icterus. No injection or drainage. EARS, NOSE AND THROAT: Nose without bleeding or purulent nasal discharge. No sinus tenderness. Mucous membranes pink and moist. No oral lesions noted. No oral thrush. NECK: Trachea midline. CARDIOVASCULAR: Regular rate and rhythm. No murmurs, rubs or gallops heard RESPIRATORY: Diminished breath sounds but clear to auscultation. ABDOMEN: Soft, non-tender, nondistended. Bowel sounds present and normoactive. EXTREMITIES: No clubbing, cyanosis, or edema. NEUROLOGICAL: Awake and alert. Cranial nerves grossly intact. Motor grossly within normal limits. Speech is normal. PSYCHIATRIC: Appropriate mood and affect. Normal insight and judgment LINE: No evidence of infection. Right subclavian TLC. (Katherine Nuno) Assessment & Plan Remarks ASSESSMENT: MRSA septicemia, source, likely secondary to T11-T12 osteo Severe low back pain, ?abscess, discitis, osteo -no e/o infective endocarditis. Echo and KIESHA negative. LV/RV function normal. -baseline ESR 38, CRP 11 -MRI showed abnormal signal involving the dura in the lower thoracic and upper lumbar spine with heterogenous enhancement of T11 and T12 suggest underlying infectious process/osteomyelitis. No obvious epidural collection -Cardiology following -Repeat BCX all positive MRSA, repeat BCX 11/07 pending -white count improving, now 13.3 -Previously on vancomycin. Discontinued secondary to STANLEY. Now on IV Teflaro , daptomycin and oral rifampin. Acute kidney injury -Suspect related to vancomycin use. -on IVF, patient reports good UOP, no dysuria -creatinine function worsening, now 4.37 -Nephrology consulted/pending Bilateral pleural effusions COPD exacerbation, improving Suspected PNA -CT Chest minimal effusions, mild basilar atelectasis. Patchy areas of minimal airspace infiltrate. -completed course of Levaquin -on IV steroids and Duonebs Lung nodules -Multiple small parenchymal lung nodules noted on CT of the chest, recommended follow-up, ?emboli Prior Hx labial abscess Aug 2017 Hx livedo vasculopathy Recommendations Repeat blood culture pending. If blood cultures still positive, will need to change central line. Continue daptomycin, rifampin, Teflaro Incentive spirometry/acapella at bedside, encourage use Await Nephrology recommendations. Continue IVF Monitor I&Os Continue to monitor renal indices, avoid nephrotoxic agents. Monitor temps Monitor progress clinically Further recommendations to follow Discussed plan with patient and partner (Katherine Nuno) Remarks The exam, history, and the medical decision-making described in the above note were completed with the assistance of the mid-level provider. I reviewed and agree with the findings presented. I attest that I had a [id number] encounter with the patient on the same day, and personally performed and documented my assessment and findings in the medical record. Continue Dapto IV, Continue Rifampin, Continue Teflaro IV KIESHA negative Clinically improved except Cr worsened. Trying to maintain oral intake of fluids. Nephrology consult pending. (Moira Pettit MD) Katherine Nuno Nov 07, 2017 16:01 Moira Pettit MD Nov 07, 2017 19:06
[2017-11-07] MEDS ORDERED: CEFTAROLINE INJ 300 MG in SODIUM CHLORIDE 0.9% INJ 100 ML IV SCH (20:00)
[2017-11-07] MEDS: MONTELUKAST SODIUM 10 MG TAB PO SCH (20:36)
[2017-11-08] VITALS (12 sets, daily range): BP systolic 132–156; BP diastolic 67–81; PULSE 79–87; RESP 18–20; TEMP 97.2–98.2; O2SAT 94–98
[2017-11-08] MEDS: HYDROmorphone HCL 4 MG TAB PO PRN ×6 (01:45→21:53)
[2017-11-08] MEDS: CYCLOBENZAPRINE HCL 10 MG TAB PO PRN ×3 (01:45→18:00)
[2017-11-08] MEDS: RESP: ALBUTEROL 2.5 MG/IPRATROPIUM 0.5 MG NEB (SCH) NEB ×6 (03:34→20:32)
[2017-11-08] MEDS: DIAZEPAM 5 MG TAB PO PRN ×3 (05:26→21:53)
[2017-11-08] MEDS: SODIUM CHLOR 0.9% 1000 ML INJ 1,000 ML IV SCH ×2 (05:27→21:55)
[2017-11-08 06:11] LABS: AUTOMATED NEUTROPHIL # 10.6 TH/MM3 (1.8-7.7); BASOPHIL % 0.2 % (0.0-2.0); EOSINOPHIL # 0.1 TH/MM3 (0-0.4); HEMATOCRIT 34.5 % (35.0-46.0); HEMOGLOBIN 11.1 GM/DL (11.6-15.3); LYMPH % 8.6 % (9.0-44.0); LYMPHOCYTE # 1.1 TH/MM3 (1.0-4.8); MEAN CELL VOLUME 73.5 FL (80.0-100.0); MEAN CORPUSCULAR HEMOGLOBIN 23.7 PG (27.0-34.0); MEAN CORPUSCULAR HGB CONC 32.2 % (32.0-36.0); MEAN PLATELET VOLUME 8.6 FL (7.0-11.0); MONO % 4.7 % (0.0-8.0); MONOCYTE # 0.6 TH/MM3 (0-0.9); NEUT % 85.5 % (16.0-70.0); PLATELET COUNT 253 TH/MM3 (150-450); RED BLOOD COUNT 4.69 MIL/MM3 (4.00-5.30); RED CELL DISTRIBUTION WIDTH 17.5 % (11.6-17.2); WHITE BLOOD COUNT 12.4 TH/MM3 (4.0-11.0)
[2017-11-08 07:31] LABS: BANDS 11 % (0-6); LYMPHOCYTES 9 % (9-44); METAMYELOCYTES 1 % (0-1); MONOCYTES 6 % (0-8); NEUTROPHIL # MANUAL DIFF 10.5 TH/MM3 (1.8-7.7); POLYS (SEG NEUTROPHILS) 73 % (16-70)
[2017-11-08 08:00] LABS: ALBUMIN 1.9 GM/DL (3.4-5.0); ALT (GPT) 20 U/L (10-53); AST (GOT) 24 U/L (15-37); BICARBONATE 22.6 MEQ/L (21.0-32.0); BLOOD UREA NITROGEN 82 MG/DL (7-18); CALCIUM 7.6 MG/DL (8.5-10.1); CHLORIDE 105 MEQ/L (98-107); CREATININE 4.65 MG/DL (0.50-1.00); GLOMERULAR FILTRATION RATE 10 ML/MIN (>89); GLUCOSE,RANDOM 70 MG/DL (74-106); SODIUM (NA) 137 MEQ/L (136-145)
[2017-11-08 08:02] LABS: ALKALINE PHOSPHATASE 68 U/L (45-117); TOTAL BILIRUBIN ADULT 0.5 MG/DL (0.2-1.0); TOTAL PROTEIN 5.4 GM/DL (6.4-8.2)
[2017-11-08] MEDS: SODIUM CHLORIDE 0.9% FLUSH 10 ML FLUSH IV FLUSH SCH ×3 (09:00→21:55)
[2017-11-08] MEDS: NIFEdipine 60 MG SUSTAINED RELEASE TAB PO SCH (09:45)
[2017-11-08] MEDS: DULoxetine HCl DR 30 MG CAP PO SCH (09:46)
[2017-11-08] MEDS: RIFAMPIN 150 MG CAP PO SCH (09:46)
[2017-11-08] MEDS: DOCUSATE SODIUM 100 MG CAP PO SCH ×2 (09:46→21:54)
[2017-11-08] MEDS: ASPIRIN 325 MG TAB PO SCH (09:46)
[2017-11-08] MEDS: methylPREDNISolone SOD SUCC 40 MG/1 ML VIAL IV PUSH SCH ×2 (09:46→21:54)
[2017-11-08] MEDS: BENZONATATE 100 MG CAP PO SCH ×3 (09:46→18:00)
[2017-11-08] MEDS: guaiFENesin E.R. 600 MG TAB PO SCH ×2 (09:46→21:54)
[2017-11-08] MEDS: BUDESONIDE-FORMOTEROL 160/4.5 MCG INHALER INH SCH ×2 (09:54→21:00)
[2017-11-08] MEDS: CEFTAROLINE INJ 300 MG in SODIUM CHLORIDE 0.9% INJ 100 ML IV SCH ×2 (10:30→22:59)
--- NOTE | 2017-11-08 12:12 | HHI.PR ---
Subjective Remarks Most recent Blood cultures are negative at 24 hours. Patient has no new complaints. Her ambulation is improving. Renal function has slightly worsened but the rate at which her renal function is worsening shows a tapering pattern. Objective Vital Signs Date Time Temp Pulse Resp B/P (MAP) Pulse Ox O2 Delivery O2 Flow Rate FiO2 11/08/17 08:25 98 Nasal Cannula 2.00 11/08/17 08:00 97.8 85 18 142/79 (100) 98 11/08/17 08:00 Nasal Cannula 2.00 11/08/17 07:55 87 11/08/17 04:00 98.1 79 20 139/81 (100) 96 11/08/17 04:00 Nasal Cannula 2.00 11/08/17 03:46 79 11/08/17 00:00 Nasal Cannula 2.00 11/08/17 00:00 98.2 83 18 156/74 (101) 94 11/07/17 23:37 83 11/07/17 20:00 97.6 84 18 132/77 (95) 96 11/07/17 20:00 Nasal Cannula 2.00 11/07/17 19:59 97 Nasal Cannula 2.00 11/07/17 19:52 80 11/07/17 16:00 97.4 72 18 122/65 (84) 96 I/O 11/07/17 11/07/17 11/07/17 11/08/17 11/08/17 11/08/17 07:00 15:00 23:00 07:00 15:00 23:00 Intake Total 2329 ml 611 ml 820 ml 1977 ml Balance 2329 ml 611 ml 820 ml 1977 ml Intake Oral 840 ml 720 ml 650 ml IV Total 1489 ml 611 ml 100 ml 1327 ml # Voids 4 4 4 # Bowel Movements 4 1 Result Diagram: 11/08/17 0535 11/08/17 0535 Objective Remarks GENERAL: NAD, A&Ox3 HEAD: Normocephalic. NECK: Supple, trachea midline. No lymphadenopathy. EYES: No scleral icterus. No injection or drainage. CARDIOVASCULAR: Regular rate and rhythm without murmurs, gallops, or rubs. RESPIRATORY: Breath sounds equal bilaterally. No accessory muscle use. GASTROINTESTINAL: Abdomen soft, non-tender, nondistended. MUSCULOSKELETAL: No cyanosis, or edema. SKIN: Warm and dry. NEURO: No focal neurological deficitis. A/P Problem List: (1) Bacteremia ICD Code: R78.81 - Bacteremia (2) Osteomyelitis ICD Code: M86.9 - Osteomyelitis, unspecified Assessment and Plan 47-year-old female admitted secondary to an exacerbation of back pain suspected to be T11-T12 osteomyelitis, with persisting MRSA bacteremia. Labs reviewed. Renal function slightly worse. Continue to monitor labs. Labs ordered for further monitoring. 2 need to monitor renal function. Continue to follow blood cultures, for 72 hours of no growth. Currently she is at 24 hours of no growth. 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 Continue Solu-Medrol 40 mg IV every 12 hours. Chronic back pain continue Flexeril, Valium, hydromorphone as needed. DVT prophylaxis Robert Fuller MD Nov 08, 2017 12:12
--- NOTE | 2017-11-08 13:51 | PD.CONS ---
HPI Service Nephrology Consult Requested By Dr. Pettit Reason for Consult Acute renal failure Primary Care Physician No Primary Care Physician History of Present Illness Patient is a 47-year-old white female with COPD, obesity, Livedoid vasculitis, admitted with increasing shortness of breath, cough and sputum production with severe back pain, doing investigation she noticed to have MRSA infection, sepsis and she had MRI showing infectious process T11-T12 space, patient has been receiving vancomycin, she did receive CT with IV contrast on 11/03/2017 and her creatinine is steadily rising, creatinine was 0.5 and now is around 4.65, patient states that she has been passing urine denies any dysuria or burning, she is not in any distress. Review of Systems Constitutional: COMPLAINS OF: Fatigue Respiratory: COMPLAINS OF: Cough, Sputum production, Shortness of breath Musculoskeletal: COMPLAINS OF: Joint pain, Muscle aches, Stiffness, Back pain Psychiatric: COMPLAINS OF: Anxiety Past Family Social History Allergies: Coded Allergies: No Known Allergies (Verified Adverse Reaction, Unknown, 09/05/17) Past Medical History Livedoid vasculitis Obesity Sleep GERD COPD History of back pain Past Surgical History Left elbow reconstruction surgery Labial cyst removal Tonsillectomy and adenectomy Reported Medications Reported Meds & Active Scripts Active Montelukast (Montelukast Sodium) 10 Mg Tab 10 Mg PO HS Duoneb (Ipratropium-Albuterol Neb) 0.5-2.5 Mg/3 Ml Neb 1 Ampule NEB Q8HR PRN q8hrs schedules x 3-4 days then as needed Proventil Hfa 6.7 GM Inh (Albuterol Sulfate) 90 Mcg/Act Aer 2 Puff INH Q4-6H PRN Albuterol Neb (Albuterol Sulfate) 2.5 Mg/0.5 Ml Neb 2.5 Mg NEB TID NEB PRN Note: The Albuterol Sulfate Inhalation Solution is concentrated and must be diluted. Read complete instructions carefully before using. Prednisone 20 Mg Tab 20 Mg PO BID Azithromycin 250 Mg Tab 250 Mg PO DAILY Claritin (Loratadine) 10 Mg Tablet 10 Mg PO DAILY Wound Vac (Device) 1 Ea Ea Ea .ROUTE DIRECTED home health to come and change thursday and thursday, thursday to be done at [facility] Sherry SAL (Duloxetine HCl) 30 Mg Capdr 30 Mg PO DAILY 30 Days Symbicort Inh (Budesonide/Formoterol Fumarate) 160-4.5 Mcg/Act Aero 2 Puff INH Q12HR Aspirin 325 Mg Tab 325 Mg PO DAILY Dilaudid (Hydromorphone HCl) 4 Mg Tab 4 Mg PO Q4-6H PRN Reported Ibuprofen 800 Mg Tab 800 Mg PO Q6HR PRN Active Ordered Medications Current Medications Medications (Trade) Dose Ordered Sig/Juanpablo Route Start Time Stop Time Status Last Admin (Duoneb Neb) 1 ampule Q2HR NEB PRN NEB 10/30/17 22:45 (Mucinex Er) 600 mg BID PO 10/31/17 09:00 11/08/17 09:46 (NS Flush) 2 ml UNSCH PRN IV FLUSH 10/30/17 22:45 (NS Flush) 2 ml BID IV FLUSH 10/31/17 09:00 11/08/17 09:00 (Zofran Inj) 4 mg Q6H PRN IVP 10/30/17 22:45 (Tylenol) 650 mg Q6H PRN PO 10/30/17 22:45 10/31/17 07:11 (Milk Of Magnesia Liq) 30 ml Q12H PRN PO 10/30/17 22:45 (Senokot) 17.2 mg Q12H PRN PO 10/30/17 22:45 10/31/17 07:41 (Dulcolax Supp) 10 mg DAILY PRN RECTAL 10/30/17 22:45 (Lactulose Liq) 30 ml DAILY PRN PO 10/30/17 22:45 (Aspirin) 325 mg DAILY PO 10/31/17 09:00 11/08/17 09:46 (Symbicort 160-4.5 Mcg Inh) 2 puff Q12HR INH 10/31/17 09:00 11/08/17 09:54 (Cymbalta Dr) 30 mg DAILY PO 10/31/17 09:00 11/08/17 09:46 (Dilaudid) 4 mg Q4H PRN PO 10/30/17 22:45 11/08/17 09:49 (Singulair) 10 mg HS PO 10/31/17 21:00 11/07/17 20:36 (Valium) 5 mg Q8H PRN PO 10/30/17 23:00 11/08/17 05:26 (Tessalon) 100 mg TID PO 10/31/17 13:00 11/08/17 09:46 (Flexeril) 5 mg Q8H PRN PO 10/31/17 10:45 11/08/17 09:45 (Lovenox Inj) 30 mg Q24H SQ 10/31/17 11:00 11/07/17 12:18 (Pill Splitter) 1 ea UNSCH PRN OTHER 10/31/17 11:00 (NS Flush) DAILY IV FLUSH 11/03/17 09:00 11/08/17 09:00 (NS Flush) UNSCH PRN IV FLUSH 11/02/17 14:15 (Dilaudid Pf Inj) 0.5 mg Q3H PRN IV PUSH 11/04/17 16:15 (SoluMEDROL INJ) 40 mg Q12HR IV PUSH 11/04/17 21:00 11/08/17 09:46 (Colace) 100 mg BID PO 11/04/17 21:00 11/08/17 09:46 (Catapres) 0.1 mg Q6H PRN PO 11/04/17 13:45 11/05/17 05:10 (Duoneb Neb) 1 ampule Q4HR NEB NEB 11/05/17 16:00 11/08/17 12:09 (Procardia Xl) 60 mg DAILY PO 11/06/17 09:00 11/08/17 09:45 (Rifampin) 300 mg Q12HR PO 11/05/17 21:00 11/08/17 09:46 Sodium Chloride 1,000 ml @ 125 mls/hr Q8H IV 11/06/17 18:00 11/08/17 05:27 Daptomycin 970 mg/ Sodium Chloride 100 ml @ 200 mls/hr Q48H IV 11/08/17 21:00 Ceftaroline Fosamil 300 mg/ Sodium Chloride 100 ml @ 100 mls/hr Q12H IV 11/08/17 10:00 11/08/17 10:30 Family History Noncontributory Social History She used to smoke in the past denies alcohol Physical Exam Vital Signs Vital Signs Date Time Temp Pulse Resp B/P (MAP) Pulse Ox O2 Delivery O2 Flow Rate FiO2 4/8/18 12:00 97.9 84 18 151/72 (98) 97 11/08/17 08:25 98 Nasal Cannula 2.00 11/08/17 08:00 97.8 85 18 142/79 (100) 98 11/08/17 08:00 Nasal Cannula 2.00 11/08/17 07:55 87 11/08/17 04:00 98.1 79 20 139/81 (100) 96 11/08/17 04:00 Nasal Cannula 2.00 11/08/17 03:46 79 11/08/17 00:00 Nasal Cannula 2.00 11/08/17 00:00 98.2 83 18 156/74 (101) 94 11/07/17 23:37 83 11/07/17 20:00 97.6 84 18 132/77 (95) 96 11/07/17 20:00 Nasal Cannula 2.00 11/07/17 19:59 97 Nasal Cannula 2.00 11/07/17 19:52 80 11/07/17 16:00 97.4 72 18 122/65 (84) 96 Laboratory Laboratory Tests Test 11/08/17 05:35 White Blood Count 12.4 Red Blood Count 4.69 Hemoglobin 11.1 Hematocrit 34.5 Mean Corpuscular Volume 73.5 Mean Corpuscular Hemoglobin 23.7 Mean Corpuscular Hemoglobin Concent 32.2 Red Cell Distribution Width 17.5 Platelet Count 253 Mean Platelet Volume 8.6 Neutrophils (%) (Auto) 85.5 Lymphocytes (%) (Auto) 8.6 Monocytes (%) (Auto) 4.7 Eosinophils (%) (Auto) 1.0 Basophils (%) (Auto) 0.2 Neutrophils # (Auto) 10.6 Lymphocytes # (Auto) 1.1 Monocytes # (Auto) 0.6 Eosinophils # (Auto) 0.1 Basophils # (Auto) 0.0 CBC Comment AUTO DIFF Differential Total Cells Counted 100 Neutrophils % (Manual) 73 Band Neutrophils % 11 Lymphocytes % 9 Monocytes % 6 Neutrophils # (Manual) 10.5 Metamyelocytes 1 Differential Comment FINAL DIFF MANUAL Platelet Estimate NORMAL Platelet Morphology Comment NORMAL Red Cell Morphology Comment NORMAL Blood Urea Nitrogen 82 Creatinine 4.65 Random Glucose 70 Total Protein 5.4 Albumin 1.9 Calcium Level 7.6 Alkaline Phosphatase 68 Aspartate Amino Transf (AST/SGOT) 24 Alanine Aminotransferase (ALT/SGPT) 20 Total Bilirubin 0.5 Sodium Level 137 Potassium Level 5.2 Chloride Level 105 Carbon Dioxide Level 22.6 Anion Gap 9 Estimat Glomerular Filtration Rate 10 Date/Time Source Procedure Growth Status 11/07/17 05:40 Blood Peripheral Aerobic Blood Culture - Preliminary NO GROWTH IN 1 DAY Resulted 11/07/17 05:40 Blood Peripheral Anaerobic Blood Culture - Preliminary NO GROWTH IN 1 DAY Resulted Result Diagram: 11/08/17 0535 11/08/17 0535 Imaging Last Impressions Chest CT 11/03/17 0000 Signed Impressions: Service Date/Time: Friday, November 03, 2017 22:37 - CONCLUSION: Minimal effusions. Mild basilar atelectasis. Patchy areas of minimal airspace infiltrate. Multiple small parenchymal lung nodules which should be followed Domenic Pulido MD Abdomen/Pelvis CT 11/03/17 0000 Signed Impressions: Service Date/Time: Friday, November 03, 2017 22:37 - CONCLUSION: 1. Small bilateral pleural effusions with mild basilar atelectasis the lungs. No acute findings within the abdomen and pelvis. Moderate constipation of the right colon. Melchor Caceres MD Central Venous Line 11/02/17 0000 Signed Impressions: Service Date/Time: Thursday, November 02, 2017 14:08 - CONCLUSION: Uncomplicated line placement as above. Robert Navarro MD Thoracic Spine MRI 11/01/17 0000 Signed Impressions: Service Date/Time: Wednesday, November 01, 2017 17:21 - CONCLUSION: There is heterogeneous enhancement T11 and T12 with surrounding perivertebral edema and dural enhancement anterior and posterior to the cord. A well-defined mass is not seen. Intervertebral disc signal intensity is normal without enhancement to suggest discitis, however an osteomyelitis or other underlying infectious process should be excluded. Valente Prasad MD Lumbar Spine X-Ray 11/01/17 0000 Signed Impressions: Service Date/Time: Wednesday, November 01, 2017 18:18 - CONCLUSION: No acute disease. Valente Prasad MD Lumbar Spine MRI 11/01/17 0000 Signed Impressions: Service Date/Time: Wednesday, November 01, 2017 17:21 - CONCLUSION: Abnormal signal involving the dura in the lower thoracic and upper lumbar spine with heterogeneous enhancement of T11 and T12 suggest underlying infectious process/osteomyelitis. No obvious epidural collections at this time.. Valente Prasad MD Chest X-Ray 10/30/172031 Signed Impressions: Service Date/Time: Monday, October 30, 2017 21:48 - CONCLUSION: No acute disease. Domenic Davis MD Assessment and Plan Problem List: (1) Acute renal failure ICD Codes: N17.9 - Acute kidney failure, unspecified Plan: Patient has developed acute tubular necrosis after receiving contrast studies and she was on IV vancomycin Patient is nonoliguric Continue to hydrate her well, getting normal saline at 125 cc an hour In anticipation of renal recovery Discussed possibility of dialysis in case renal function continued to deteriorate Avoid nephrotoxic agent Follow CMP Will monitor Urine sodium, creatinine was ordered (2) Osteomyelitis ICD Codes: M86.9 - Osteomyelitis, unspecified Plan: Thoracic spine she is getting daptomycin (3) Bacteremia ICD Codes: R78.81 - Bacteremia (4) MRSA bacteremia ICD Codes: R78.81 - Bacteremia Status: Acute Plan: On daptomycin and ceftaroline (5) Chronic back pain ICD Codes: M54.9 - Dorsalgia, unspecified; G89.29 - Other chronic pain Status: Acute Plan: Possible osteomyelitis (6) COPD with acute exacerbation ICD Codes: J44.1 - Chronic obstructive pulmonary disease with (acute) exacerbation Status: Acute Plan: Continue with current treatment Problem Qualifiers (1) Acute renal failure: Qualified Codes: N17.0 - Acute kidney failure with tubular necrosis (2) Chronic back pain: Qualified Codes: M54.5 - Low back pain; G89.29 - Other chronic pain David Sales MD Nov 08, 2017 13:51
[2017-11-08] MEDS: ENOXAPARIN SODIUM 30 MG/0.3 ML SYRINGE SQ SCH (13:53)
--- NOTE | 2017-11-08 14:58 | HHI.IDPN ---
Subjective Subjective Remarks Patient seen and examined with Dr. Wilver Mckeon for Dr. Velez Patient is a 47-year-old female, with known history of asthma, presented to the hospital complaining of severe low back pain for 3 days, with shortness of breath. She has some cough but she was afraid to cough because it worsens her back pain. She was also having fever and chills. Denies any chest pain, or any urinary complaints. She's had some constipation. The pain in her back goes like it's muscular, but it is now coming shooting pain that goes up her upper spine. 2 blood cultures done on admission are now reported as growing MRSA. Her chest x-rays normal. He has been getting worse in the back. Her WBC is elevated. She is getting Decadron and Levaquin for her pulmonary problem. 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 She had an admission back in August for labial abscess and the culture had MRSA. She was not bacteremic at that time. Infectious disease consultation has been requested to evaluate the patient. Notes reviewed. Patient reports her back pain is managed with her regular home regimen of Dilaudid Breathing improved Reports good BM x 2 today Denies any fever or chills Denies any rash Denies any new sores Denies any diarrhea Denies dysuria. Had her nurse d/c her IVF temporarily due to feeling full all over. She is hydrating well. Reports normal UOP. MRI showed abnormal signal involving the dura in the lower thoracic and upper lumbar spine with heterogenous enhancement of T11 and T12 suggest underlying infectious process/osteomyelitis. No obvious epidural collection. Echo showed EF 50-55%. Wall thickness normal. Normal left ventricular. Trace MVR. Trace TVR. No vegetation KIESHA unremarkable All blood cultures have been positive MRSA except for last BCX 11/07 with no growth patient is afebrile WBC improving, down to 12.4 Cr up to 4.65 Antibiotics Daptomycin IV Rifampin Teflaro Current Medications Medications (Trade) Dose Ordered Sig/Juanpablo Route Start Time Stop Time Status Last Admin (Duoneb Neb) 1 ampule Q2HR NEB PRN NEB 10/30/17 22:45 (Mucinex Er) 600 mg BID PO 10/31/17 09:00 11/08/17 09:46 (NS Flush) 2 ml UNSCH PRN IV FLUSH 10/30/17 22:45 (NS Flush) 2 ml BID IV FLUSH 10/31/17 09:00 11/08/17 09:00 (Zofran Inj) 4 mg Q6H PRN IVP 10/30/17 22:45 (Tylenol) 650 mg Q6H PRN PO 10/30/17 22:45 10/31/17 07:11 (Milk Of Magnesia Liq) 30 ml Q12H PRN PO 10/30/17 22:45 (Senokot) 17.2 mg Q12H PRN PO 10/30/17 22:45 10/31/17 07:41 (Dulcolax Supp) 10 mg DAILY PRN RECTAL 10/30/17 22:45 (Lactulose Liq) 30 ml DAILY PRN PO 10/30/17 22:45 (Aspirin) 325 mg DAILY PO 10/31/17 09:00 11/08/17 09:46 (Symbicort 160-4.5 Mcg Inh) 2 puff Q12HR INH 10/31/17 09:00 11/08/17 09:54 (Cymbalta Dr) 30 mg DAILY PO 10/31/17 09:00 11/08/17 09:46 (Dilaudid) 4 mg Q4H PRN PO 10/30/17 22:45 11/08/17 13:52 (Singulair) 10 mg HS PO 10/31/17 21:00 11/07/17 20:36 (Valium) 5 mg Q8H PRN PO 10/30/17 23:00 11/08/17 13:53 (Tessalon) 100 mg TID PO 10/31/17 13:00 11/08/17 13:53 (Flexeril) 5 mg Q8H PRN PO 10/31/17 10:45 11/08/17 09:45 (Lovenox Inj) 30 mg Q24H SQ 10/31/17 11:00 11/08/17 13:53 (Pill Splitter) 1 ea UNSCH PRN OTHER 10/31/17 11:00 (NS Flush) DAILY IV FLUSH 11/03/17 09:00 11/08/17 09:00 (NS Flush) UNSCH PRN IV FLUSH 11/02/17 14:15 (Dilaudid Pf Inj) 0.5 mg Q3H PRN IV PUSH 11/04/17 16:15 (SoluMEDROL INJ) 40 mg Q12HR IV PUSH 11/04/17 21:00 11/08/17 09:46 (Colace) 100 mg BID PO 11/04/17 21:00 11/08/17 09:46 (Catapres) 0.1 mg Q6H PRN PO 11/04/17 13:45 11/05/17 05:10 (Duoneb Neb) 1 ampule Q4HR NEB NEB 11/05/17 16:00 11/08/17 12:09 (Procardia Xl) 60 mg DAILY PO 11/06/17 09:00 11/08/17 09:45 (Rifampin) 300 mg Q12HR PO 11/05/17 21:00 11/08/17 09:46 Sodium Chloride 1,000 ml @ 125 mls/hr Q8H IV 11/06/17 18:00 11/08/17 05:27 Daptomycin 970 mg/ Sodium Chloride 100 ml @ 200 mls/hr Q48H IV 11/08/17 21:00 Ceftaroline Fosamil 300 mg/ Sodium Chloride 100 ml @ 100 mls/hr Q12H IV 11/08/17 10:00 11/08/17 10:30 Lines Right IJ with no evidence of infection Past Medical History Livedo vasculopathy, 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 COPD. GERD. Obesity. 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 Labial abscess, drained Past Surgical History Screws / plats in left elbow Left breast abscess drainage I and D labial abscess (Katherine Nuno) Allergies: Coded Allergies: No Known Allergies (Verified Adverse Reaction, Unknown, 09/05/17) Objective . Vital Signs Date Time Temp Pulse Resp B/P (MAP) Pulse Ox O2 Delivery O2 Flow Rate FiO2 11/08/17 12:00 97.9 84 18 151/72 (98) 97 11/08/17 08:25 98 Nasal Cannula 2.00 11/08/17 08:00 97.8 85 18 142/79 (100) 98 11/08/17 08:00 Nasal Cannula 2.00 11/08/17 07:55 87 11/08/17 04:00 98.1 79 20 139/81 (100) 96 11/08/17 04:00 Nasal Cannula 2.00 11/08/17 03:46 79 11/08/17 00:00 Nasal Cannula 2.00 11/08/17 00:00 98.2 83 18 156/74 (101) 94 11/07/17 23:37 83 11/07/17 20:00 97.6 84 18 132/77 (95) 96 11/07/17 20:00 Nasal Cannula 2.00 11/07/17 19:59 97 Nasal Cannula 2.00 11/07/17 19:52 80 11/07/17 16:00 97.4 72 18 122/65 (84) 96 . Laboratory Tests Test 11/07/17 05:40 11/08/17 05:35 White Blood Count 13.3 TH/MM3 12.4 TH/MM3 Red Blood Count 4.95 MIL/MM3 4.69 MIL/MM3 Hemoglobin 11.7 GM/DL 11.1 GM/DL Hematocrit 36.0 % 34.5 % Mean Corpuscular Volume 72.8 FL 73.5 FL Mean Corpuscular Hemoglobin 23.5 PG 23.7 PG Mean Corpuscular Hemoglobin Concent 32.3 % 32.2 % Red Cell Distribution Width 17.1 % 17.5 % Platelet Count 247 TH/MM3 253 TH/MM3 Mean Platelet Volume 8.4 FL 8.6 FL Neutrophils (%) (Auto) 85.5 % 85.5 % Lymphocytes (%) (Auto) 7.9 % 8.6 % Monocytes (%) (Auto) 5.9 % 4.7 % Eosinophils (%) (Auto) 0.5 % 1.0 % Basophils (%) (Auto) 0.2 % 0.2 % Neutrophils # (Auto) 11.3 TH/MM3 10.6 TH/MM3 Lymphocytes # (Auto) 1.0 TH/MM3 1.1 TH/MM3 Monocytes # (Auto) 0.8 TH/MM3 0.6 TH/MM3 Eosinophils # (Auto) 0.1 TH/MM3 0.1 TH/MM3 Basophils # (Auto) 0.0 TH/MM3 0.0 TH/MM3 CBC Comment AUTO DIFF AUTO DIFF Differential Total Cells Counted 100 100 Neutrophils % (Manual) 72 % 73 % Band Neutrophils % 10 % 11 % Lymphocytes % 11 % 9 % Monocytes % 2 % 6 % Eosinophils % 2 % Neutrophils # (Manual) 11.3 TH/MM3 10.5 TH/MM3 Metamyelocytes 1 % 1 % Myelocytes 2 % Differential Comment FINAL DIFF MANUAL FINAL DIFF MANUAL Platelet Estimate NORMAL NORMAL Platelet Morphology Comment NORMAL NORMAL Red Cell Morphology Comment NORMAL NORMAL Laboratory Tests Test 11/07/17 05:40 11/08/17 05:35 Blood Urea Nitrogen 86 MG/DL 82 MG/DL Creatinine 4.37 MG/DL 4.65 MG/DL Random Glucose 82 MG/DL 70 MG/DL Total Protein 5.5 GM/DL 5.4 GM/DL Albumin 1.8 GM/DL 1.9 GM/DL Calcium Level 7.4 MG/DL 7.6 MG/DL Alkaline Phosphatase 69 U/L 68 U/L Aspartate Amino Transf (AST/SGOT) 15 U/L 24 U/L Alanine Aminotransferase (ALT/SGPT) 18 U/L 20 U/L Total Bilirubin 0.6 MG/DL 0.5 MG/DL Sodium Level 135 MEQ/L 137 MEQ/L Potassium Level 4.4 MEQ/L 5.2 MEQ/L Chloride Level 99 MEQ/L 105 MEQ/L Carbon Dioxide Level 24.5 MEQ/L 22.6 MEQ/L Anion Gap 12 MEQ/L 9 MEQ/L Estimat Glomerular Filtration Rate 11 ML/MIN 10 ML/MIN Protein Corrected Calcium 8.3 MG/DL Microbiology Date/Time Source Procedure Growth Status 11/07/17 05:40 Blood Peripheral Aerobic Blood Culture - Preliminary NO GROWTH IN 1 DAY Resulted 11/07/17 05:40 Blood Peripheral Anaerobic Blood Culture - Preliminary NO GROWTH IN 1 DAY Resulted 11/07/17 05:40 Blood Peripheral Aerobic Blood Culture - Preliminary NO GROWTH IN 1 DAY Resulted 11/07/17 05:40 Blood Peripheral Anaerobic Blood Culture - Preliminary NO GROWTH IN 1 DAY Resulted Imaging Last Impressions Chest CT 11/03/17 0000 Signed Impressions: Service Date/Time: Friday, November 03, 2017 22:37 - CONCLUSION: Minimal effusions. Mild basilar atelectasis. Patchy areas of minimal airspace infiltrate. Multiple small parenchymal lung nodules which should be followed Domenic Pulido MD Abdomen/Pelvis CT 11/03/17 0000 Signed Impressions: Service Date/Time: Friday, November 03, 2017 22:37 - CONCLUSION: 1. Small bilateral pleural effusions with mild basilar atelectasis the lungs. No acute findings within the abdomen and pelvis. Moderate constipation of the right colon. Melchor Caceres MD Central Venous Line 11/02/17 Signed Impressions: Service Date/Time: Thursday, November 02, 2017 14:08 - CONCLUSION: Uncomplicated line placement as above. Robert Navarro MD Thoracic Spine MRI 11/01/17 0000 Signed Impressions: Service Date/Time: Wednesday, November 01, 2017 17:21 - CONCLUSION: There is heterogeneous enhancement T11 and T12 with surrounding perivertebral edema and dural enhancement anterior and posterior to the cord. A well-defined mass is not seen. Intervertebral disc signal intensity is normal without enhancement to suggest discitis, however an osteomyelitis or other underlying infectious process should be excluded. Valente Prasad MD Lumbar Spine X-Ray 11/01/17 Signed Impressions: Service Date/Time: Wednesday, November 01, 2017 18:18 - CONCLUSION: No acute disease. Valente Prasad MD Lumbar Spine MRI 11/01/17 Signed Impressions: Service Date/Time: Wednesday, November 01, 2017 17:21 - CONCLUSION: Abnormal signal involving the dura in the lower thoracic and upper lumbar spine with heterogeneous enhancement of T11 and T12 suggest underlying infectious process/osteomyelitis. No obvious epidural collections at this time.. Valente Prasad MD Chest X-Ray 10/30/172031 Signed Impressions: Service Date/Time: Monday, October 30, 2017 21:48 - CONCLUSION: No acute disease. Domenic Davis MD Physical Exam GENERAL: WDWN obese female, INAD. Awake and alert. Sitting up in bed. SKIN: Warm and dry. No generalized rash, no ecchymoses and no evidence of embolic lesions. Has brownish pigmentation on both lower legs HEAD: Atraumatic. Normocephalic. EYES: [place] conjunctiva. No petechia or hemorrhage. Extraocular movements full and intact. No scleral icterus. No injection or drainage. EARS, NOSE AND THROAT: Nose without bleeding or purulent nasal discharge. No sinus tenderness. Mucous membranes pink and moist. No oral lesions noted. No oral thrush. NECK: Trachea midline. CARDIOVASCULAR: Regular rate and rhythm. No murmurs, rubs or gallops heard RESPIRATORY: Diminished breath sounds but clear to auscultation. ABDOMEN: Soft, non-tender, nondistended. Bowel sounds present and normoactive. EXTREMITIES: No clubbing, cyanosis, or edema. NEUROLOGICAL: Awake and alert. Cranial nerves grossly intact. Motor grossly within normal limits. Speech is normal. PSYCHIATRIC: Appropriate mood and affect. Normal insight and judgment LINE: No evidence of infection. Right subclavian central line. (Katherine Nuno) Assessment & Plan Remarks ASSESSMENT: MRSA septicemia, source, likely secondary to T11-T12 osteo Severe low back pain, ?abscess, discitis, osteo -no e/o infective endocarditis. Echo and KIESHA negative. LV/RV function normal. -baseline ESR 38, CRP 11 -MRI showed abnormal signal involving the dura in the lower thoracic and upper lumbar spine with heterogenous enhancement of T11 and T12 suggest underlying infectious process/osteomyelitis. No obvious epidural collection -Cardiology following -Repeat BCX all positive MRSA, repeat BCX 11/07 with no growth x 1 day -white count improving, now 13.3 -Previously on vancomycin. Discontinued secondary to STANLEY. Now on IV Teflaro , daptomycin and oral rifampin. Acute kidney injury -Suspect related to vancomycin use. -on IVF, patient reports good UOP, no dysuria -creatinine function worsening, now 4.65 -Nephrology following Bilateral pleural effusions COPD exacerbation, improving Suspected PNA -CT Chest minimal effusions, mild basilar atelectasis. Patchy areas of minimal airspace infiltrate. -completed course of Levaquin -on IV steroids and Duonebs Lung nodules -Multiple small parenchymal lung nodules noted on CT of the chest, recommended follow-up, ?emboli Prior Hx labial abscess Aug 2017 Hx livedo vasculopathy Recommendations Repeat blood culture with no growth x 1 day. If blood cultures still positive, will need to change central line. Continue to monitor BCX results Continue daptomycin, rifampin, Teflaro Incentive spirometry/acapella at bedside, encourage use Nephrology following, note reviewed - Discussed possibility of dialysis in case renal function continued to deteriorate, continue IVF hydration Continue IVF Monitor I&Os Continue to monitor renal indices, avoid nephrotoxic agents. Monitor temps Monitor progress clinically Further recommendations to follow (Katherine Nuno) Remarks The exam, history, and the medical decision-making described in the above note were completed with the assistance of the mid-level provider. I reviewed and agree with the findings presented. I attest that I had a [id number] encounter with the patient on the same day, and personally performed and documented my assessment and findings in the medical record. UO good On IVF Appetite fair. Parish Martines: he will see patient today. Dw patient about Cr rising and Nephro to see her today. Continue Dapto Continue Teflaro DC Rifampin oral (Moira Pettit MD) Katherine Nuno Nov 08, 2017 14:58 Moira Pettit MD Nov 08, 2017 17:41
[2017-11-08] MEDS: DAPTOMYCIN IV SCH (21:54)
[2017-11-08] MEDS: SODIUM CHLORIDE 0.9% IV SCH (21:54)
[2017-11-08] MEDS: MONTELUKAST SODIUM 10 MG TAB PO SCH (21:54)
[2017-11-09] VITALS (11 sets, daily range): BP systolic 132–149; BP diastolic 67–79; PULSE 77–85; RESP 17–18; TEMP 97.7–98.2; O2SAT 95–98
[2017-11-09] MEDS: SODIUM CHLOR 0.9% 1000 ML INJ 1,000 ML IV SCH ×2 (01:35→10:00)
[2017-11-09] MEDS: CYCLOBENZAPRINE HCL 10 MG TAB PO PRN ×3 (01:58→17:17)
[2017-11-09] MEDS: HYDROmorphone HCL 4 MG TAB PO PRN ×6 (01:58→21:30)
[2017-11-09] MEDS: RESP: ALBUTEROL 2.5 MG/IPRATROPIUM 0.5 MG NEB (SCH) NEB ×4 (04:00→11:53)
[2017-11-09] MEDS: DIAZEPAM 5 MG TAB PO PRN ×3 (05:17→21:30)
[2017-11-09 05:47] LABS: AUTOMATED NEUTROPHIL # 9.5 TH/MM3 (1.8-7.7); BASOPHIL # 0.1 TH/MM3 (0-0.2); BASOPHIL % 0.7 % (0.0-2.0); EOSINOPHIL # 0.1 TH/MM3 (0-0.4); EOSINOPHIL % 1.3 % (0.0-4.0); HEMATOCRIT 35.7 % (35.0-46.0); HEMOGLOBIN 11.3 GM/DL (11.6-15.3); LYMPH % 9.1 % (9.0-44.0); MEAN CELL VOLUME 73.5 FL (80.0-100.0); MEAN CORPUSCULAR HEMOGLOBIN 23.4 PG (27.0-34.0); MEAN CORPUSCULAR HGB CONC 31.8 % (32.0-36.0); MEAN PLATELET VOLUME 8.3 FL (7.0-11.0); MONO % 4.1 % (0.0-8.0); MONOCYTE # 0.5 TH/MM3 (0-0.9); NEUT % 84.8 % (16.0-70.0); PLATELET COUNT 301 TH/MM3 (150-450); RED BLOOD COUNT 4.85 MIL/MM3 (4.00-5.30); RED CELL DISTRIBUTION WIDTH 17.8 % (11.6-17.2); WHITE BLOOD COUNT 11.2 TH/MM3 (4.0-11.0)
[2017-11-09 06:14] LABS: ALBUMIN 2.1 GM/DL (3.4-5.0); ALT (GPT) 23 U/L (10-53); AST (GOT) 24 U/L (15-37); BICARBONATE 20.8 MEQ/L (21.0-32.0); BLOOD UREA NITROGEN 81 MG/DL (7-18); CALCIUM 8.2 MG/DL (8.5-10.1); CHLORIDE 106 MEQ/L (98-107); GLOMERULAR FILTRATION RATE 10 ML/MIN (>89); GLUCOSE,RANDOM 66 MG/DL (74-106); MAGNESIUM 2.7 MG/DL (1.5-2.5); SODIUM (NA) 137 MEQ/L (136-145)
[2017-11-09 06:16] LABS: ALKALINE PHOSPHATASE 71 U/L (45-117); TOTAL BILIRUBIN ADULT 0.5 MG/DL (0.2-1.0); TOTAL PROTEIN 5.9 GM/DL (6.4-8.2)
[2017-11-09 07:51] LABS: BANDS 2 % (0-6); LYMPHOCYTES 7 % (9-44); METAMYELOCYTES 1 % (0-1); MONOCYTES 2 % (0-8); OVALOCYTES 1+ (NORMAL); POLYS (SEG NEUTROPHILS) 86 % (16-70)
[2017-11-09 07:52] LABS: TOXIC GRANULATION 2+ (NORMAL); TOXIC VACUOLATION PRESENT (NONE SEEN)
[2017-11-09] MEDS: methylPREDNISolone SOD SUCC 40 MG/1 ML VIAL IV PUSH SCH ×2 (08:47→20:08)
[2017-11-09] MEDS: ASPIRIN 325 MG TAB PO SCH (08:47)
[2017-11-09] MEDS: NIFEdipine 60 MG SUSTAINED RELEASE TAB PO SCH (08:47)
[2017-11-09] MEDS: DOCUSATE SODIUM 100 MG CAP PO SCH ×2 (08:47→20:08)
[2017-11-09] MEDS: BENZONATATE 100 MG CAP PO SCH ×3 (08:47→17:05)
[2017-11-09] MEDS: guaiFENesin E.R. 600 MG TAB PO SCH ×2 (08:48→20:13)
[2017-11-09] MEDS: SODIUM CHLORIDE 0.9% FLUSH 10 ML FLUSH IV FLUSH SCH ×3 (08:48→20:08)
[2017-11-09] MEDS: DULoxetine HCl DR 30 MG CAP PO SCH (08:48)
[2017-11-09] MEDS: BUDESONIDE-FORMOTEROL 160/4.5 MCG INHALER INH SCH ×2 (08:57→20:08)
--- NOTE | 2017-11-09 09:24 | HHI.IDPN ---
Subjective Subjective Remarks Patient is a 47-year-old female, with known history of asthma, presented to the hospital complaining of severe low back pain for 3 days, with shortness of breath. She has some cough but she was afraid to cough because it worsens her back pain. She was also having fever and chills. Denies any chest pain, or any urinary complaints. She's had some constipation. The pain in her back goes like it's muscular, but it is now coming shooting pain that goes up her upper spine. 2 blood cultures done on admission are now reported as growing MRSA. Her chest x-rays normal. He has been getting worse in the back. Her WBC is elevated. She is getting Decadron and Levaquin for her pulmonary problem. 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 She had an admission back in August for labial abscess and the culture had MRSA. She was not bacteremic at that time. Infectious disease consultation has been requested to evaluate the patient. Events of past week reviewed Notes reviewed. D/W RN All BC (+), last one done 11/[address] A/P and chest, no abscess, has some nodules in lung Creatinine started increasing, after she had IV contrast Renal notes reviewed Afebrile States she is voiding normal No diarrhea No rash or itching C/P being swollen in her trunk/abomen Has central line in her RIJ MRI showed abnormal signal involving the dura in the lower thoracic and upper lumbar spine with heterogenous enhancement of T11 and T12 suggest underlying infectious process/osteomyelitis. No obvious epidural collection. Echo showed EF 50-55%. Wall thickness normal. Normal left ventricular. Trace MVR. Trace TVR. No vegetation KIESHA unremarkable Antibiotics Daptomycin IV Rifampin Teflaro Current Medications Medications (Trade) Dose Ordered Sig/Juanpablo Route Start Time Stop Time Status Last Admin (Duoneb Neb) 1 ampule Q2HR NEB PRN NEB 10/30/17 22:45 (Mucinex Er) 600 mg BID PO 10/31/17 09:00 11/09/17 08:48 (NS Flush) 2 ml UNSCH PRN IV FLUSH 10/30/17 22:45 (NS Flush) 2 ml BID IV FLUSH 10/31/17 09:00 11/08/17 21:55 (Zofran Inj) 4 mg Q6H PRN IVP 10/30/17 22:45 (Tylenol) 650 mg Q6H PRN PO 10/30/17 22:45 10/31/17 07:11 (Milk Of Magnesia Liq) 30 ml Q12H PRN PO 10/30/17 22:45 (Senokot) 17.2 mg Q12H PRN PO 10/30/17 22:45 10/31/17 07:41 (Dulcolax Supp) 10 mg DAILY PRN RECTAL 10/30/17 22:45 (Lactulose Liq) 30 ml DAILY PRN PO 10/30/17 22:45 (Aspirin) 325 mg DAILY PO 10/31/17 09:00 11/09/17 08:47 (Symbicort 160-4.5 Mcg Inh) 2 puff Q12HR INH 10/31/17 09:00 11/09/17 08:57 (Cymbalta Dr) 30 mg DAILY PO 10/31/17 09:00 11/09/17 08:48 (Dilaudid) 4 mg Q4H PRN PO 10/30/17 22:45 11/09/17 05:17 (Singulair) 10 mg HS PO 10/31/17 21:00 11/08/17 21:54 (Valium) 5 mg Q8H PRN PO 10/30/17 23:00 11/09/17 05:17 (Tessalon) 100 mg TID PO 10/31/17 13:00 11/09/17 08:47 (Flexeril) 5 mg Q8H PRN PO 10/31/17 10:45 11/09/17 01:58 (Lovenox Inj) 30 mg Q24H SQ 10/31/17 11:00 11/08/17 13:53 (Pill Splitter) 1 ea UNSCH PRN OTHER 10/31/17 11:00 (NS Flush) DAILY IV FLUSH 11/03/17 09:00 11/09/17 08:48 (NS Flush) UNSCH PRN IV FLUSH 11/02/17 14:15 (Dilaudid Pf Inj) 0.5 mg Q3H PRN IV PUSH 11/04/17 16:15 (SoluMEDROL INJ) 40 mg Q12HR IV PUSH 11/04/17 21:00 11/09/17 08:47 (Colace) 100 mg BID PO 11/04/17 21:00 11/09/17 08:47 (Catapres) 0.1 mg Q6H PRN PO 11/04/17 13:45 11/05/17 05:10 (Duoneb Neb) 1 ampule Q4HR NEB NEB 11/05/17 16:00 11/09/17 08:32 (Procardia Xl) 60 mg DAILY PO 11/06/17 09:00 11/09/17 08:47 Sodium Chloride 1,000 ml @ 125 mls/hr Q8H IV 11/06/17 18:00 11/08/17 21:55 Daptomycin 970 mg/ Sodium Chloride 100 ml @ 200 mls/hr Q48H IV 11/08/17 21:00 11/08/17 21:54 Ceftaroline Fosamil 300 mg/ Sodium Chloride 100 ml @ 100 mls/hr Q12H IV 11/08/17 10:00 11/08/17 22:59 Lines Right IJ with no evidence of infection - 11/02 Past Medical History Livedo vasculopathy, 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 COPD. GERD. Obesity. 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 Labial abscess, drained Past Surgical History Screws / plats in left elbow Left breast abscess drainage I and D labial abscess Allergies: Coded Allergies: No Known Allergies (Verified Adverse Reaction, Unknown, 09/05/17) Objective . Vital Signs Date Time Temp Pulse Resp B/P (MAP) Pulse Ox O2 Delivery O2 Flow Rate FiO2 11/09/17 08:35 98 Nasal Cannula 2.00 11/09/17 08:01 97.9 82 17 139/67 (91) 98 11/09/17 03:42 77 11/09/17 00:00 97.7 80 18 148/73 (98) 95 11/09/17 00:00 Nasal Cannula 2.00 11/08/17 23:42 81 11/08/17 20:32 96 Nasal Cannula 2.00 11/08/17 20:00 Nasal Cannula 2.00 11/08/17 20:00 97.4 85 18 151/72 (98) 95 11/08/17 19:43 82 11/08/17 16:00 97.2 80 18 146/67 (93) 97 11/08/17 12:00 97.9 84 18 151/72 (98) 97 . Laboratory Tests Test 11/08/17 05:35 11/09/17 05:20 White Blood Count 12.4 TH/MM3 11.2 TH/MM3 Red Blood Count 4.69 MIL/MM3 4.85 MIL/MM3 Hemoglobin 11.1 GM/DL 11.3 GM/DL Hematocrit 34.5 % 35.7 % Mean Corpuscular Volume 73.5 FL 73.5 FL Mean Corpuscular Hemoglobin 23.7 PG 23.4 PG Mean Corpuscular Hemoglobin Concent 32.2 % 31.8 % Red Cell Distribution Width 17.5 % 17.8 % Platelet Count 253 TH/MM3 301 TH/MM3 Mean Platelet Volume 8.6 FL 8.3 FL Neutrophils (%) (Auto) 85.5 % 84.8 % Lymphocytes (%) (Auto) 8.6 % 9.1 % Monocytes (%) (Auto) 4.7 % 4.1 % Eosinophils (%) (Auto) 1.0 % 1.3 % Basophils (%) (Auto) 0.2 % 0.7 % Neutrophils # (Auto) 10.6 TH/MM3 9.5 TH/MM3 Lymphocytes # (Auto) 1.1 TH/MM3 1.0 TH/MM3 Monocytes # (Auto) 0.6 TH/MM3 0.5 TH/MM3 Eosinophils # (Auto) 0.1 TH/MM3 0.1 TH/MM3 Basophils # (Auto) 0.0 TH/MM3 0.1 TH/MM3 CBC Comment AUTO DIFF AUTO DIFF Differential Total Cells Counted 100 100 Neutrophils % (Manual) 73 % 86 % Band Neutrophils % 11 % 2 % Lymphocytes % 9 % 7 % Monocytes % 6 % 2 % Neutrophils # (Manual) 10.5 TH/MM3 10.0 TH/MM3 Metamyelocytes 1 % 1 % Differential Comment FINAL DIFF MANUAL FINAL DIFF MANUAL Platelet Estimate NORMAL NORMAL Platelet Morphology Comment NORMAL NORMAL Red Cell Morphology Comment NORMAL Eosinophils % 2 % Toxic Granulation 2+ Toxic Vacuolation PRESENT Ovalocytes 1+ Laboratory Tests Test 11/08/17 05:35 11/09/17 05:20 Blood Urea Nitrogen 82 MG/DL 81 MG/DL Creatinine 4.65 MG/DL 4.80 MG/DL Random Glucose 70 MG/DL 66 MG/DL Total Protein 5.4 GM/DL 5.9 GM/DL Albumin 1.9 GM/DL 2.1 GM/DL Calcium Level 7.6 MG/DL 8.2 MG/DL Alkaline Phosphatase 68 U/L 71 U/L Aspartate Amino Transf (AST/SGOT) 24 U/L 24 U/L Alanine Aminotransferase (ALT/SGPT) 20 U/L 23 U/L Total Bilirubin 0.5 MG/DL 0.5 MG/DL Sodium Level 137 MEQ/L 137 MEQ/L Potassium Level 5.2 MEQ/L 5.6 MEQ/L Chloride Level 105 MEQ/L 106 MEQ/L Carbon Dioxide Level 22.6 MEQ/L 20.8 MEQ/L Anion Gap 9 MEQ/L 10 MEQ/L Estimat Glomerular Filtration Rate 10 ML/MIN 10 ML/MIN Phosphorus Level 7.0 MG/DL Magnesium Level 2.7 MG/DL Microbiology Date/Time Source Procedure Growth Status 11/07/17 05:40 Blood Peripheral Aerobic Blood Culture - Preliminary NO GROWTH IN 1 DAY Resulted 11/07/17 05:40 Blood Peripheral Anaerobic Blood Culture - Preliminary NO GROWTH IN 1 DAY Resulted 11/07/17 05:40 Blood Peripheral Aerobic Blood Culture - Preliminary NO GROWTH IN 1 DAY Resulted 11/07/17 05:40 Blood Peripheral Anaerobic Blood Culture - Preliminary NO GROWTH IN 1 DAY Resulted Imaging Last Impressions Chest CT 11/03/17 0000 Signed Impressions: Service Date/Time: Friday, November 03, 2017 22:37 - CONCLUSION: Minimal effusions. Mild basilar atelectasis. Patchy areas of minimal airspace infiltrate. Multiple small parenchymal lung nodules which should be followed Domenic Pulido MD Abdomen/Pelvis CT 11/03/17 0000 Signed Impressions: Service Date/Time: Friday, November 03, 2017 22:37 - CONCLUSION: 1. Small bilateral pleural effusions with mild basilar atelectasis the lungs. No acute findings within the abdomen and pelvis. Moderate constipation of the right colon. Melchor Caceres MD Central Venous Line 11/02/17 0000 Signed Impressions: Service Date/Time: Thursday, November 02, 2017 14:08 - CONCLUSION: Uncomplicated line placement as above. Robert Navarro MD Thoracic Spine MRI 11/01/17 0000 Signed Impressions: Service Date/Time: Wednesday, November 01, 2017 17:21 - CONCLUSION: There is heterogeneous enhancement T11 and T12 with surrounding perivertebral edema and dural enhancement anterior and posterior to the cord. A well-defined mass is not seen. Intervertebral disc signal intensity is normal without enhancement to suggest discitis, however an osteomyelitis or other underlying infectious process should be excluded. Valente Prasad MD Lumbar Spine X-Ray 11/01/17 0000 Signed Impressions: Service Date/Time: Wednesday, November 01, 2017 18:18 - CONCLUSION: No acute disease. Valente Prasad MD Lumbar Spine MRI 11/01/17 0000 Signed Impressions: Service Date/Time: Wednesday, November 01, 2017 17:21 - CONCLUSION: Abnormal signal involving the dura in the lower thoracic and upper lumbar spine with heterogeneous enhancement of T11 and T12 suggest underlying infectious process/osteomyelitis. No obvious epidural collections at this time.. Valente Prasad MD Chest X-Ray 10/30/172031 Signed Impressions: Service Date/Time: Monday, October 30, 2017 21:48 - CONCLUSION: No acute disease. Domenic Davis MD Physical Exam GENERAL: WDWN obese female, NAD. Awake and alert. SKIN: Warm and dry. No generalized rash, no ecchymoses and no evidence of embolic lesions. Has brownish pigmentation on both lower legs HEAD: Atraumatic. Normocephalic. EYES: Tees Toh conjunctiva. No petechia or hemorrhage. Extraocular movements full and intact. No scleral icterus. No injection or drainage. EARS, NOSE AND THROAT: Nose without bleeding or purulent nasal discharge. No sinus tenderness. Mucous membranes pink and moist. No oral lesions noted. No oral thrush. NECK: Trachea midline. RIJ line ok CARDIAC: Regular rate and rhythm. No murmurs, rubs or gallops heard RESPIRATORY: Diminished breath sounds but clear to auscultation. ABDOMEN: Soft, non-tender, nondistended. Bowel sounds present and normoactive. EXTREMITIES: No clubbing, cyanosis, or edema. No calf tenderness NEUROLOGICAL: Awake and alert. Cranial nerves grossly intact. Motor grossly within normal limits. Speech is normal. PSYCHIATRIC: Appropriate mood and affect. Normal insight and judgment LINE: No evidence of infection. Right subclavian central line. Assessment & Plan Remarks MRSA septicemia, source, likely secondary to T11-T12 osteo - KIESHA negative - -baseline ESR 38, CRP 11 - MRI showed abnormal signal involving the dura in the lower thoracic and upper lumbar spine with heterogenous enhancement of T11 and T12 suggest underlying infectious process/osteomyelitis. No obvious epidural collection - BC (+) 10/31-11/04 Severe low back pain, due to osteo - better as far as pain control Acute kidney injury - likely due to IV contrast - ?Vanco Bilateral pleural effusions COPD exacerbation, improving Suspected PNA -CT Chest minimal effusions, mild basilar atelectasis. Patchy areas of minimal airspace infiltrate. -completed course of Levaquin -on IV steroids and Duonebs Lung nodules -Multiple small parenchymal lung nodules noted on CT of the chest, recommended follow-up, ?emboli Prior Hx labial abscess Aug 2017 Hx livedo vasculopathy Recommendations Repeat BC today UA and urine for eos - has been ordered prior, but not done - D/C RN to get urine specimen Continue daptomycin, rifampin, Teflaro - follow CPK while on Cubicin Incentive spirometry/acapella at bedside, encourage use Nephrology following, note reviewed Continue IVF Monitor I&Os Continue to monitor renal indices, avoid nephrotoxic agents. Follow C/S Monitor temps Monitor progress clinically D/W RN Explained plan to the patient Jazmín Velez MD Nov 09, 2017 09:24
[2017-11-09] MEDS: CEFTAROLINE INJ 300 MG in SODIUM CHLORIDE 0.9% INJ 100 ML IV SCH ×2 (09:30→21:31)
[2017-11-09] MEDS: MICAFUNGIN 100 MG/NS 100 ML IV SCH ×2 (10:54)
[2017-11-09] MEDS: ENOXAPARIN SODIUM 30 MG/0.3 ML SYRINGE SQ SCH (10:58)
--- NOTE | 2017-11-09 11:11 | HHI.PR ---
Subjective Remarks Most recent Blood cultures show yeast. Not yet finalized, no ID yet. Complaint from patient of lower extremity and abdominal edema. Objective Vital Signs Date Time Temp Pulse Resp B/P (MAP) Pulse Ox O2 Delivery O2 Flow Rate FiO2 11/09/17 08:35 98 Nasal Cannula 2.00 11/09/17 08:20 81 11/09/17 08:20 Nasal Cannula 2.00 11/09/17 08:01 97.9 82 17 139/67 (91) 98 11/09/17 03:42 77 11/09/17 00:00 97.7 80 18 148/73 (98) 95 11/09/17 00:00 Nasal Cannula 2.00 11/08/17 23:42 81 11/08/17 20:32 96 Nasal Cannula 2.00 11/08/17 20:00 Nasal Cannula 2.00 11/08/17 20:00 97.4 85 18 151/72 (98) 95 11/08/17 19:43 82 11/08/17 16:00 97.2 80 18 146/67 (93) 97 11/08/17 12:00 97.9 84 18 151/72 (98) 97 I/O 11/08/17 11/08/17 11/08/17 11/09/17 11/09/17 11/09/17 07:00 15:00 23:00 07:00 15:00 23:00 Intake Total 1977 ml 820 ml 2157 ml Balance 1977 ml 820 ml 2157 ml Intake Oral 650 ml 720 ml 870 ml IV Total 1327 ml 100 ml 1287 ml # Voids 4 4 5 # Bowel Movements 1 2 1 Result Diagram: 11/09/17 0520 11/09/17 0520 Objective Remarks GENERAL: NAD, A&Ox3 HEAD: Normocephalic. NECK: Supple, trachea midline. No lymphadenopathy. EYES: No scleral icterus. No injection or drainage. CARDIOVASCULAR: Regular rate and rhythm without murmurs, gallops, or rubs. RESPIRATORY: Breath sounds equal bilaterally. No accessory muscle use. GASTROINTESTINAL: Abdomen soft, non-tender, nondistended. MUSCULOSKELETAL: No cyanosis, or edema. SKIN: Warm and dry. NEURO: No focal neurological deficitis. A/P Problem List: (1) Bacteremia ICD Code: R78.81 - Bacteremia (2) Osteomyelitis ICD Code: M86.9 - Osteomyelitis, unspecified Assessment and Plan 47-year-old female admitted secondary to an exacerbation of back pain suspected to be T11-T12 osteomyelitis, with persisting MRSA bacteremia. Labs reviewed. Renal function slightly worse again. Continue to monitor labs. Labs ordered for further monitoring. Evidence for fungemia in blood. IV Fluids rate decreased for edema. 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 Acute kidney injury IV hydration started Follow renal function Avoid nephrotoxins Suspected pneumonia Levofloxacin continued, will complete tomorrow Hypertension Continue baseline treatment Follow blood pressures Adjust treatments as needed Continue nifedipine COPD continue DuoNeb, Symbicort, Mucinex. Continue Solu-Medrol 40 mg IV every 12 hours. Chronic back pain continue Flexeril, Valium, hydromorphone as needed. DVT prophylaxis Lovenox Robert Campbell MD Nov 09, 2017 11:11
[2017-11-09 12:06] LABS: BACTERIA, URINE FEW /hpf; BILIRUBIN, URINE NEG (NEG); BLOOD, URINE MOD (NEG); GLUCOSE,URINE NEG (NEG); KETONE, URINE NEG (NEG); NITRITE,URINE NEG (NEG); SQUAMOUS EPITHELIAL CELL URINE 1 /hpf (0-5); URIC ACID CRYSTALS, URINE MANY /hpf; URINE COLOR YELLOW (YELLW/STRAW); URINE LEUKOCYTE ESTERASE MOD (NEG)
[2017-11-09 12:26] LABS: CREATININE, RANDOM URINE 67.6 MG/DL
--- NOTE | 2017-11-09 16:30 | RADRPT ---
EXAM DATE/TIME: 11/09/2017 15:21 [facility] COMPARISON: No previous studies available for comparison. INDICATIONS : Patient with acute exacerbation COPD, needs new central line because of possible infection. MEDICAL HISTORY : COPD Anxiety Depression Chronic back pain SURGICAL HISTORY : Left elbow Tonsillectomy ENCOUNTER: Subsequent ACUITY: 1 week PAIN SCORE: 3/10 LOCATION: Shortness of breath FLUORO TIME: 0.2 minutes IMAGE SERIES: 1 ACCESS: Left internal jugular vein DEVICE(S): 1.) 7 Chadian triple lumen 20 cm Arrow central line PROCEDURE : 1. Ultrasound guided venipuncture. 2. Fluoroscopic guidance. 3. Central line placement. The risks, benefits and alternatives to the procedure were explained and verbal and written consent w as obtained. The site was prepped in sterile fashion. Full sterile technique was used, including ca p, mask, sterile gloves and gown and a large sterile sheet. Hand hygiene and 2% chlorhexidine prep w as utilized per protocol for cutaneous antisepsis with appropriate dry time for site. Sterile gel an d sterile probe cover were utilized for ultrasound guidance. The skin and subcutaneous tissues were infiltrated with local anesthetic solution. A suitable site a rg the vein was selected with ultrasound and fluoroscopic guidance. A small incision was made. Th e vein was accessed under direct ultrasound visualization using the micropuncture technique. The jerman ropuncture set was exchanged for a 0.035 wire. The tract was dilated. The catheter was advanced int o position under direct fluoroscopic visualization. The catheter was fixed in place with suture and a sterile dressing was applied. The patient tolerated the procedure well and there were no complications. CONCLUSION: Uncomplicated line placement as above. Rip Camarillo MD on November 09, 2017 at 16:27 Board Certified Radiologist. This report was verified electronically.
--- NOTE | 2017-11-09 16:42 | HHI.NPPN ---
Subjective History of Present Illness 47 year old with sepsis now with ARF, thoracic spine fluid collection Objective Data Data 11/09/17 11/10/17 19:00 07:00 Intake Total 200 ml Balance 200 ml IV Total 200 ml Vital Signs Date Time Temp Pulse Resp B/P (MAP) Pulse Ox O2 Delivery O2 Flow Rate FiO2 11/09/17 16:07 98.0 77 18 132/76 (94) 97 11/09/17 12:09 98.2 85 18 138/67 (90) 95 11/09/17 11:48 85 11/09/17 08:35 98 Nasal Cannula 2.00 11/09/17 08:20 81 11/09/17 08:20 Nasal Cannula 2.00 11/09/17 08:01 97.9 82 17 139/67 (91) 98 11/09/17 03:42 77 11/09/17 00:00 97.7 80 18 148/73 (98) 95 11/09/17 00:00 Nasal Cannula 2.00 11/08/17 23:42 81 11/08/17 20:32 96 Nasal Cannula 2.00 11/08/17 20:00 Nasal Cannula 2.00 11/08/17 20:00 97.4 85 18 151/72 (98) 95 11/08/17 19:43 82 -: 11/09/17 0520 11/09/17 0520 Microbiology 11/09/17 Aerobic Blood Culture, Received Pending 11/09/17 Anaerobic Blood Culture, Received Pending 11/09/17 Aerobic Blood Culture, Received Pending 11/09/17 Anaerobic Blood Culture, Received Pending 11/09/17 Fungal Culture, Received Pending 11/09/17 Wound Culture, Received Pending Physical Exam General Appearance: Well Developed, Well Nourished Neck Neck Exam: Neck Supple Pulmonary Resp Exam: Clear Bilaterally, Breath Sounds Equal Cardiology CV Exam: Regular, Normal Sinus Rhythm Gastrointestinal/Abdomen GI Exam: Soft, Distended Extremeties Extremities Exam: Trace Edema Neurologic Neuro Exam: Alert, Awake, Oriented Assessment/Plan Problem List: (1) Acute renal failure ICD Codes: N17.9 - Acute kidney failure, unspecified Plan: Patient has developed acute tubular necrosis after receiving contrast studies and she was on IV vancomycin Patient is nonoliguric bloated high K change diet Kayexalate Lasix 100 mg IV for diuresis then 60 mg IV Q 12 Need Vascath in am HD discussed Clement cath I/O (2) Osteomyelitis ICD Codes: M86.9 - Osteomyelitis, unspecified Plan: Thoracic spine she is getting daptomycin (3) Bacteremia ICD Codes: R78.81 - Bacteremia (4) MRSA bacteremia ICD Codes: R78.81 - Bacteremia Status: Acute Plan: On daptomycin and ceftaroline (5) Chronic back pain ICD Codes: M54.9 - Dorsalgia, unspecified; G89.29 - Other chronic pain Status: Acute Plan: Possible osteomyelitis (6) COPD with acute exacerbation ICD Codes: J44.1 - Chronic obstructive pulmonary disease with (acute) exacerbation Status: Acute Plan: Continue with current treatment Problem Qualifiers (1) Acute renal failure: Qualified Codes: N17.0 - Acute kidney failure with tubular necrosis (2) Chronic back pain: Qualified Codes: M54.5 - Low back pain; G89.29 - Other chronic pain David Sales MD Nov 09, 2017 16:42
[2017-11-09] MEDS ORDERED: FUROSEMIDE 100 MG/10 ML VIAL IV PUSH ONE (16:45)
[2017-11-09] MEDS ORDERED: SODIUM POLYSTYRENE SULFONATE SUSP 15 GM/60 ML CUP PO ONE (16:45)
[2017-11-09] MEDS: MONTELUKAST SODIUM 10 MG TAB PO SCH (20:09)
[2017-11-10] VITALS (8 sets, daily range): BP systolic 138–169; BP diastolic 72–86; PULSE 69–83; RESP 18–20; TEMP 97.9–98.3; O2SAT 95–99
[2017-11-10] MEDS: cloNIDine HCL 0.1 MG TAB PO PRN ×2 (01:24→20:55)
[2017-11-10] MEDS: HYDROmorphone HCL 4 MG TAB PO PRN ×5 (01:25→20:44)
[2017-11-10] MEDS: CYCLOBENZAPRINE HCL 10 MG TAB PO PRN ×3 (01:25→18:23)
[2017-11-10] MEDS: DIAZEPAM 5 MG TAB PO PRN ×2 (05:25→16:33)
[2017-11-10 06:14] LABS: ALBUMIN 1.9 GM/DL (3.4-5.0); ALKALINE PHOSPHATASE 65 U/L (45-117); ALT (GPT) 25 U/L (10-53); AST (GOT) 22 U/L (15-37); BICARBONATE 19.2 MEQ/L (21.0-32.0); BLOOD UREA NITROGEN 70 MG/DL (7-18); CALCIUM 7.9 MG/DL (8.5-10.1); CHLORIDE 106 MEQ/L (98-107); CREATININE 4.93 MG/DL (0.50-1.00); GLOMERULAR FILTRATION RATE 9 ML/MIN (>89); GLUCOSE,RANDOM 66 MG/DL (74-106); SODIUM (NA) 136 MEQ/L (136-145); TOTAL BILIRUBIN ADULT 0.4 MG/DL (0.2-1.0); TOTAL PROTEIN 5.5 GM/DL (6.4-8.2)
[2017-11-10 06:21] LABS: AUTOMATED NEUTROPHIL # 7.9 TH/MM3 (1.8-7.7); BASOPHIL % 0.4 % (0.0-2.0); EOSINOPHIL # 0.2 TH/MM3 (0-0.4); HEMATOCRIT 33.4 % (35.0-46.0); HEMOGLOBIN 10.6 GM/DL (11.6-15.3); LYMPH % 10.5 % (9.0-44.0); MEAN CELL VOLUME 75.5 FL (80.0-100.0); MEAN CORPUSCULAR HGB CONC 31.8 % (32.0-36.0); MEAN PLATELET VOLUME 8.1 FL (7.0-11.0); MONO % 5.4 % (0.0-8.0); MONOCYTE # 0.5 TH/MM3 (0-0.9); NEUT % 81.7 % (16.0-70.0); PLATELET COUNT 274 TH/MM3 (150-450); RED BLOOD COUNT 4.43 MIL/MM3 (4.00-5.30); RED CELL DISTRIBUTION WIDTH 17.7 % (11.6-17.2); WHITE BLOOD COUNT 9.6 TH/MM3 (4.0-11.0)
[2017-11-10] MEDS: DOCUSATE SODIUM 100 MG CAP PO SCH ×2 (09:00→20:43)
[2017-11-10] MEDS: BUDESONIDE-FORMOTEROL 160/4.5 MCG INHALER INH SCH ×2 (09:08→20:43)
[2017-11-10] MEDS: SODIUM CHLORIDE 0.9% FLUSH 10 ML FLUSH IV FLUSH SCH ×3 (09:09→20:43)
[2017-11-10] MEDS: ASPIRIN 325 MG TAB PO SCH (09:09)
[2017-11-10] MEDS: NIFEdipine 60 MG SUSTAINED RELEASE TAB PO SCH (09:09)
[2017-11-10] MEDS: DULoxetine HCl DR 30 MG CAP PO SCH (09:09)
[2017-11-10] MEDS: methylPREDNISolone SOD SUCC 40 MG/1 ML VIAL IV PUSH SCH ×2 (09:10→20:43)
[2017-11-10] MEDS: FUROSEMIDE 40 MG/4 ML VIAL IV PUSH SCH ×2 (09:11→18:18)
[2017-11-10] MEDS: guaiFENesin E.R. 600 MG TAB PO SCH ×2 (09:11→20:43)
[2017-11-10] MEDS: MICAFUNGIN 100 MG/NS 100 ML IV SCH ×2 (09:12)
[2017-11-10] MEDS: BENZONATATE 100 MG CAP PO SCH ×3 (09:13→18:19)
--- NOTE | 2017-11-10 09:37 | PD.RAD ---
Post Procedure Progress Note Pre Procedure Diagnosis: (1) Acute renal failure Post Procedure Diagnosis: (1) Acute renal failure Procedure Date: Nov 10, 2017 Supervising Radiologist: Rip Camarillo Proceduralist/Assist: Pamela Thorne RT(R)(), RT Kimberly(R) Anesthesia: Local Plan of Activity Patient to Unit: Nursing Unit Patient Condition: Good See PACS Report for procedural detail/treatment Central Venous Access Device Procedure 1 Right Internal Jugular Hemodialysis Catheter Non-Tunneled Placement dual lumen Rip Camarillo MD Nov 10, 2017 09:37
[2017-11-10] MEDS ORDERED: SODIUM CHLORIDE 0.9% FLUSH 10 ML FLUSH IV FLUSH PRN ×2 (09:45→11:45)
[2017-11-10] MEDS ORDERED: HEPARIN SODIUM - IV 2,000 UNITS/2 ML VIAL IV FLUSH PRN (09:45)
--- NOTE | 2017-11-10 10:04 | RADRPT ---
EXAM DATE/TIME: 11/10/2017 08:52 [facility] COMPARISON: No previous studies available for comparison. INDICATIONS : Patient with a history of renal failure, needs dialysis. MEDICAL HISTORY : COPD Anxiety Depression Chronic back pain SURGICAL HISTORY : Left elbow surgery Tonsillectomy ENCOUNTER: Initial ACUITY: 1 day PAIN SCORE: 7/10 LOCATION: lower back FLUORO TIME: 0.78 minutes IMAGE SERIES: 1 ACCESS: Right internal jugular vein DEVICE(S): 1.) 14 English dual lumen 15 cm Schon catheter PROCEDURE : 1. Ultrasound guided venipuncture. 2. Fluoroscopic guidance. 3. Central line placement. The risks, benefits and alternatives to the procedure were explained and verbal and written consent w as obtained. The site was prepped in sterile fashion. Full sterile technique was used, including ca p, mask, sterile gloves and gown and a large sterile sheet. Hand hygiene and 2% chlorhexidine prep w as utilized per protocol for cutaneous antisepsis with appropriate dry time for site. Sterile gel an d sterile probe cover were utilized for ultrasound guidance. The skin and subcutaneous tissues were infiltrated with local anesthetic solution. A suitable site a rg the vein was selected with ultrasound and fluoroscopic guidance. A small incision was made. Th e vein was accessed under direct ultrasound visualization using the micropuncture technique. The jerman ropuncture set was exchanged for a 0.035 wire. The tract was dilated. The catheter was advanced int o position under direct fluoroscopic visualization. The catheter was fixed in place with suture and a sterile dressing was applied. The patient tolerated the procedure well and there were no complications. CONCLUSION: Uncomplicated line placement as above. Rip Camarillo MD on November 10, 2017 at 10:00 Board Certified Radiologist. This report was verified electronically.
[2017-11-10] MEDS: CEFTAROLINE INJ 300 MG in SODIUM CHLORIDE 0.9% INJ 100 ML IV SCH ×2 (10:34→20:55)
[2017-11-10] MEDS: ENOXAPARIN SODIUM 30 MG/0.3 ML SYRINGE SQ SCH (11:00)
[2017-11-10] MEDS ORDERED: SODIUM CHLOR 0.9% 1000 ML INJ 1,000 ML IV PRN (11:38)
[2017-11-10] MEDS ORDERED: SODIUM CHLOR 0.9% 1000 ML INJ 1,000 ML OTHER PRN ×2 (11:38)
[2017-11-10] MEDS ORDERED: cloNIDine HCL 0.1 MG TAB PO PRN (11:45)
[2017-11-10] MEDS ORDERED: HEPARIN SODIUM - IV 10,000 UNITS/10 ML VIAL IV FLUSH PRN (11:45)
[2017-11-10] MEDS ORDERED: ACETAMINOPHEN 325 MG TAB PO PRN (11:45)
[2017-11-10] MEDS ORDERED: ALBUMIN 25% INJ 100 ML IV PRN (11:45)
[2017-11-10] MEDS ORDERED: GELATIN 12 MM/7 MM FOAM TOP PRN (11:45)
[2017-11-10] MEDS ORDERED: ONDANSETRON HCL 4 MG/2 ML VIAL IV PUSH PRN (11:45)
[2017-11-10] MEDS ORDERED: MANNITOL 12.5 GM/50 ML VIAL IV PRN (11:45)
[2017-11-10] MEDS ORDERED: NITROGLYCERIN 0.4 MG SL 25 TABS/BTL SL PRN (11:45)
[2017-11-10] MEDS ORDERED: diphenhydrAMINE HCL 25 MG CAP PO PRN (11:45)
--- NOTE | 2017-11-10 12:19 | HHI.PR ---
Subjective Remarks Continued slight worsening of renal function. Vas-Cath has been placed. Some diarrhea is present today. Objective Vital Signs Date Time Temp Pulse Resp B/P (MAP) Pulse Ox O2 Delivery O2 Flow Rate FiO2 11/10/17 08:06 97.9 82 20 140/73 (95) 98 11/10/17 04:03 98.0 77 18 151/73 (99) 99 11/10/17 04:00 69 11/10/17 00:35 98.2 69 18 169/84 (112) 99 11/10/17 00:00 76 11/10/17 00:00 Nasal Cannula 2.00 11/09/17 20:25 97.8 79 18 149/79 (102) 95 11/09/17 20:00 Nasal Cannula 2.00 11/09/17 20:00 85 11/09/17 16:07 98.0 77 18 132/76 (94) 97 11/09/17 16:05 83 I/O 11/09/17 11/09/17 11/09/17 11/10/17 11/10/17 11/10/17 07:00 15:00 23:00 07:00 15:00 23:00 Intake Total 2157 ml 200 ml 840 ml 480 ml Output Total 100 ml Balance 2157 ml 200 ml 840 ml 380 ml Intake Oral 870 ml 840 ml 480 ml IV Total 1287 ml 200 ml Output Urine Total 100 ml # Voids 5 5 # Bowel Movements 1 2 5 Result Diagram: 11/10/17 0525 11/10/17 0525 Objective Remarks GENERAL: NAD, A&Ox3 HEAD: Normocephalic. NECK: Supple, trachea midline. No lymphadenopathy. EYES: No scleral icterus. No injection or drainage. CARDIOVASCULAR: Regular rate and rhythm without murmurs, gallops, or rubs. RESPIRATORY: Breath sounds equal bilaterally. No accessory muscle use. GASTROINTESTINAL: Abdomen soft, non-tender, nondistended. MUSCULOSKELETAL: No cyanosis, or edema. SKIN: Warm and dry. NEURO: No focal neurological deficitis. A/P Problem List: (1) Bacteremia ICD Code: R78.81 - Bacteremia (2) Osteomyelitis ICD Code: M86.9 - Osteomyelitis, unspecified Assessment and Plan 47-year-old female admitted secondary to an exacerbation of back pain suspected to be T11-T12 osteomyelitis, with persisting MRSA bacteremia. Labs reviewed. Renal function slightly worse again. Continue to monitor labs. Labs ordered for further monitoring. Ischemia is present. Follow cultures. Patient declines IV fluids. Continue to monitor renal function. Dialysis planned. Screen for C. difficile. Follow diarrhea clinically. Probiotics started. 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 Acute kidney injury IV hydration started Follow renal function Avoid nephrotoxins Suspected pneumonia Levofloxacin continued, will complete tomorrow Hypertension Continue baseline treatment Follow blood pressures Adjust treatments as needed Continue nifedipine COPD continue DuoNeb, Symbicort, Mucinex. Continue Solu-Medrol 40 mg IV every 12 hours. Chronic back pain continue Flexeril, Valium, hydromorphone as needed. DVT prophylaxis Everardox Robert Campbell MD Nov 10, 2017 12:19
--- NOTE | 2017-11-10 12:33 | HHI.IDPN ---
Subjective Subjective Remarks Patient is a 47-year-old female, with known history of asthma, presented to the hospital complaining of severe low back pain for 3 days, with shortness of breath. She has some cough but she was afraid to cough because it worsens her back pain. She was also having fever and chills. Denies any chest pain, or any urinary complaints. She's had some constipation. The pain in her back goes like it's muscular, but it is now coming shooting pain that goes up her upper spine. 2 blood cultures done on admission are now reported as growing MRSA. Her chest x-rays normal. He has been getting worse in the back. Her WBC is elevated. She is getting Decadron and Levaquin for her pulmonary problem. 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 She had an admission back in August for labial abscess and the culture had MRSA. She was not bacteremic at that time. Infectious disease consultation has been requested to evaluate the patient. Notes reviewed. Temps ok Last (+) BC with MRSA 4 New BC came up (+) with yeast central line removed yesterday Has vascath and for HD today Creatinine rising No diarrhea No rash or itching CT A/P and chest, no abscess, has some nodules in lung MRI showed abnormal signal involving the dura in the lower thoracic and upper lumbar spine with heterogenous enhancement of T11 and T12 suggest underlying infectious process/osteomyelitis. No obvious epidural collection. Echo showed EF 50-55%. Wall thickness normal. Normal left ventricular. Trace MVR. Trace TVR. No vegetation KIESHA unremarkable Antibiotics Daptomycin IV Teflaro Micafungin Current Medications Medications (Trade) Dose Ordered Sig/Juanpablo Route Start Time Stop Time Status Last Admin (Duoneb Neb) 1 ampule Q2HR NEB PRN NEB 10/30/17 22:45 (Mucinex Er) 600 mg BID PO 10/31/17 09:00 11/10/17 09:11 (NS Flush) 2 ml UNSCH PRN IV FLUSH 10/30/17 22:45 11/10/17 05:25 (NS Flush) 2 ml BID IV FLUSH 10/31/17 09:00 11/10/17 09:09 (Zofran Inj) 4 mg Q6H PRN IVP 10/30/17 22:45 (Tylenol) 650 mg Q6H PRN PO 10/30/17 22:45 10/31/17 07:11 (Milk Of Magnesia Liq) 30 ml Q12H PRN PO 10/30/17 22:45 (Senokot) 17.2 mg Q12H PRN PO 10/30/17 22:45 10/31/17 07:41 (Dulcolax Supp) 10 mg DAILY PRN RECTAL 10/30/17 22:45 (Lactulose Liq) 30 ml DAILY PRN PO 10/30/17 22:45 (Aspirin) 325 mg DAILY PO 10/31/17 09:00 11/10/17 09:09 (Symbicort 160-4.5 Mcg Inh) 2 puff Q12HR INH 10/31/17 09:00 11/10/17 09:08 (Cymbalta Dr) 30 mg DAILY PO 10/31/17 09:00 11/10/17 09:09 (Dilaudid) 4 mg Q4H PRN PO 10/30/17 22:45 11/10/17 09:11 (Singulair) 10 mg HS PO 10/31/17 21:00 11/09/17 20:09 (Valium) 5 mg Q8H PRN PO 10/30/17 23:00 11/10/17 05:25 (Tessalon) 100 mg TID PO 10/31/17 13:00 11/10/17 09:13 (Flexeril) 5 mg Q8H PRN PO 10/31/17 10:45 11/10/17 09:10 (Lovenox Inj) 30 mg Q24H SQ 10/31/17 11:00 11/09/17 10:58 (Pill Splitter) 1 ea UNSCH PRN OTHER 10/31/17 11:00 (NS Flush) DAILY IV FLUSH 11/03/17 09:00 11/10/17 09:09 (NS Flush) UNSCH PRN IV FLUSH 11/02/17 14:15 (Dilaudid Pf Inj) 0.5 mg Q3H PRN IV PUSH 11/04/17 16:15 (SoluMEDROL INJ) 40 mg Q12HR IV PUSH 11/04/17 21:00 11/10/17 09:10 (Colace) 100 mg BID PO 11/04/17 21:00 11/09/17 08:47 (Catapres) 0.1 mg Q6H PRN PO 11/04/17 13:45 11/10/17 01:24 (Procardia Xl) 60 mg DAILY PO 11/06/17 09:00 11/10/17 09:09 Daptomycin 970 mg/ Sodium Chloride 100 ml @ 200 mls/hr Q48H IV 11/08/17 21:00 11/08/17 21:54 Ceftaroline Fosamil 300 mg/ Sodium Chloride 100 ml @ 100 mls/hr Q12H IV 11/08/17 10:00 11/10/17 10:34 Micafungin Sodium 100 mg/Sodium Chloride 100 ml @ 100 mls/hr Q24H IV 11/09/17 10:00 11/10/17 09:12 (Lasix Inj) 60 mg BID@,18 IV PUSH 11/10/17 09:00 11/10/17 09:11 (NS Flush) UNSCH PRN IV FLUSH 11/10/17 09:45 (Heparin Inj) UNSCH PRN IV FLUSH 11/10/17 09:45 (Lactinex) 1 tab TID PO 11/10/17 13:00 Sodium Chloride 1,000 ml @ 0 mls/hr Q0M PRN OTHER 11/10/17 11:38 (Heparin Inj) 8,000 units UNSCH PRN IV FLUSH 11/10/17 11:45 Sodium Chloride 1,000 ml @ 200 mls/hr Q5H PRN IV 11/10/17 11:38 Sodium Chloride 1,000 ml @ 0 mls/hr Q0M PRN OTHER 11/10/17 11:38 (Mannitol Inj) 12.5 gm UNSCH PRN IV 11/10/17 11:45 Albumin Human 100 ml @ 60 mls/hr UNSCH PRN IV 11/10/17 11:45 (NS Flush) 5 ml UNSCH PRN IV FLUSH 11/10/17 11:45 (Heparin Inj) UNSCH PRN .XX 11/10/17 11:45 (Gentamicin Inj) 20 mg UNSCH PRN OTHER 11/10/17 11:45 (Zofran Inj) 4 mg UNSCH PRN IV PUSH 11/10/17 11:45 (Tylenol) 650 mg UNSCH PRN PO 11/10/17 11:45 (Benadryl) 25 mg UNSCH PRN PO 11/10/17 11:45 (Nitrostat Sl) 0.4 mg UNSCH PRN SL 11/10/17 11:45 (Catapres) 0.1 mg UNSCH PRN PO 11/10/17 11:45 (Epogen Inj) 4,000 units UNSCH PRN IV PUSH 11/10/17 11:45 (Gelfoam 12 Mm/7 Mm Top) 1 foam UNSCH PRN TOP 11/10/17 11:45 (Diflucan) 400 mg DAILY PO 11/10/17 12:15 UNV Past Medical History Livedo vasculopathy, 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 COPD. GERD. Obesity. 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 Labial abscess, drained Past Surgical History Screws / plats in left elbow Left breast abscess drainage I and D labial abscess Allergies: Coded Allergies: No Known Allergies (Verified Allergy, Unknown, 11/09/17) Objective . Vital Signs Date Time Temp Pulse Resp B/P (MAP) Pulse Ox O2 Delivery O2 Flow Rate FiO2 11/10/17 08:06 97.9 82 20 140/73 (95) 98 11/10/17 04:03 98.0 77 18 151/73 (99) 99 11/10/17 04:00 69 11/10/17 00:35 98.2 69 18 169/84 (112) 99 11/10/17 00:00 76 11/10/17 00:00 Nasal Cannula 2.00 11/09/17 20:25 97.8 79 18 149/79 (102) 95 11/09/17 20:00 Nasal Cannula 2.00 11/09/17 20:00 85 11/09/17 16:07 98.0 77 18 132/76 (94) 97 11/09/17 16:05 83 . Laboratory Tests Test 11/09/17 05:20 11/10/17 05:25 White Blood Count 11.2 TH/MM3 9.6 TH/MM3 Red Blood Count 4.85 MIL/MM3 4.43 MIL/MM3 Hemoglobin 11.3 GM/DL 10.6 GM/DL Hematocrit 35.7 % 33.4 % Mean Corpuscular Volume 73.5 FL 75.5 FL Mean Corpuscular Hemoglobin 23.4 PG 24.0 PG Mean Corpuscular Hemoglobin Concent 31.8 % 31.8 % Red Cell Distribution Width 17.8 % 17.7 % Platelet Count 301 TH/MM3 274 TH/MM3 Mean Platelet Volume 8.3 FL 8.1 FL Neutrophils (%) (Auto) 84.8 % 81.7 % Lymphocytes (%) (Auto) 9.1 % 10.5 % Monocytes (%) (Auto) 4.1 % 5.4 % Eosinophils (%) (Auto) 1.3 % 2.0 % Basophils (%) (Auto) 0.7 % 0.4 % Neutrophils # (Auto) 9.5 TH/MM3 7.9 TH/MM3 Lymphocytes # (Auto) 1.0 TH/MM3 1.0 TH/MM3 Monocytes # (Auto) 0.5 TH/MM3 0.5 TH/MM3 Eosinophils # (Auto) 0.1 TH/MM3 0.2 TH/MM3 Basophils # (Auto) 0.1 TH/MM3 0.0 TH/MM3 CBC Comment AUTO DIFF DIFF FINAL Differential Total Cells Counted 100 Neutrophils % (Manual) 86 % Band Neutrophils % 2 % Lymphocytes % 7 % Monocytes % 2 % Eosinophils % 2 % Neutrophils # (Manual) 10.0 TH/MM3 Metamyelocytes 1 % Differential Comment FINAL DIFF MANUAL Toxic Granulation 2+ Toxic Vacuolation PRESENT Platelet Estimate NORMAL Platelet Morphology Comment NORMAL Ovalocytes 1+ Laboratory Tests Test 11/09/17 05:20 11/09/17 10:30 11/10/17 05:25 Blood Urea Nitrogen 81 MG/DL 70 MG/DL Creatinine 4.80 MG/DL 4.93 MG/DL Random Glucose 66 MG/DL 66 MG/DL Total Protein 5.9 GM/DL 5.5 GM/DL Albumin 2.1 GM/DL 1.9 GM/DL Calcium Level 8.2 MG/DL 7.9 MG/DL Phosphorus Level 7.0 MG/DL Magnesium Level 2.7 MG/DL Alkaline Phosphatase 71 U/L 65 U/L Aspartate Amino Transf (AST/SGOT) 24 U/L 22 U/L Alanine Aminotransferase (ALT/SGPT) 23 U/L 25 U/L Total Bilirubin 0.5 MG/DL 0.4 MG/DL Sodium Level 137 MEQ/L 136 MEQ/L Potassium Level 5.6 MEQ/L 5.2 MEQ/L Chloride Level 106 MEQ/L 106 MEQ/L Carbon Dioxide Level 20.8 MEQ/L 19.2 MEQ/L Anion Gap 10 MEQ/L 11 MEQ/L Estimat Glomerular Filtration Rate 10 ML/MIN 9 ML/MIN Total Creatine Kinase 39 U/L Microbiology Date/Time Source Procedure Growth Status 11/09/17 13:50 Blood Peripheral Aerobic Blood Culture - Preliminary NO GROWTH IN 1 DAY Resulted 11/09/17 13:50 Blood Peripheral Anaerobic Blood Culture - Final QNS - SEE AEROBE REPORT Resulted 11/09/17 11:24 Blood Line Aerobic Blood Culture - Preliminary NO GROWTH IN 1 DAY Resulted 11/09/17 11:24 Blood Line Anaerobic Blood Culture - Preliminary NO GROWTH IN 1 DAY Resulted 11/09/17 15:30 Catheter Tip Central Venous Line Fungal Culture Pending Received 11/09/17 15:30 Catheter Tip Central Venous Line Wound Culture - Preliminary NO GROWTH IN 24 HOURS. Resulted Imaging Last Impressions Chest CT 11/03/17 0000 Signed Impressions: Service Date/Time: Friday, November 03, 2017 22:37 - CONCLUSION: Minimal effusions. Mild basilar atelectasis. Patchy areas of minimal airspace infiltrate. Multiple small parenchymal lung nodules which should be followed Domenic Pulido MD Abdomen/Pelvis CT 11/03/17 0000 Signed Impressions: Service Date/Time: Friday, November 03, 2017 22:37 - CONCLUSION: 1. Small bilateral pleural effusions with mild basilar atelectasis the lungs. No acute findings within the abdomen and pelvis. Moderate constipation of the right colon. Melchor Caceres MD Central Venous Line 11/02/17 0000 Signed Impressions: Service Date/Time: Thursday, November 02, 2017 14:08 - CONCLUSION: Uncomplicated line placement as above. Robert Navarro MD Thoracic Spine MRI 11/01/17 0000 Signed Impressions: Service Date/Time: Wednesday, November 01, 2017 17:21 - CONCLUSION: There is heterogeneous enhancement T11 and T12 with surrounding perivertebral edema and dural enhancement anterior and posterior to the cord. A well-defined mass is not seen. Intervertebral disc signal intensity is normal without enhancement to suggest discitis, however an osteomyelitis or other underlying infectious process should be excluded. Valente Prasad MD Lumbar Spine X-Ray 11/01/17 0000 Signed Impressions: Service Date/Time: Wednesday, November 01, 2017 18:18 - CONCLUSION: No acute disease. Valente Prasad MD Lumbar Spine MRI 11/01/17 0000 Signed Impressions: Service Date/Time: Wednesday, November 01, 2017 17:21 - CONCLUSION: Abnormal signal involving the dura in the lower thoracic and upper lumbar spine with heterogeneous enhancement of T11 and T12 suggest underlying infectious process/osteomyelitis. No obvious epidural collections at this time.. Valente Prasad MD Chest X-Ray 10/30/172031 Signed Impressions: Service Date/Time: Monday, October 30, 2017 21:48 - CONCLUSION: No acute disease. Domenic Davis MD Physical Exam GENERAL: WDWN obese female, NAD. Awake and alert. SKIN: Warm and dry. No generalized rash, no ecchymoses and no evidence of embolic lesions. Has brownish pigmentation on both lower legs HEAD: Atraumatic. Normocephalic. EYES: Alda conjunctiva. No petechia or hemorrhage. Extraocular movements full and intact. No scleral icterus. No injection or drainage. EARS, NOSE AND THROAT: Nose without bleeding or purulent nasal discharge. No sinus tenderness. Mucous membranes pink and moist. No oral lesions noted. No oral thrush. NECK: Trachea midline. RIJ line ok CARDIAC: Regular rate and rhythm. No murmurs, rubs or gallops heard RESPIRATORY: Diminished breath sounds but clear to auscultation. ABDOMEN: Soft, non-tender, nondistended. Bowel sounds present and normoactive. EXTREMITIES: No clubbing, cyanosis, or edema. No calf tenderness NEUROLOGICAL: Awake and alert. Cranial nerves grossly intact. Motor grossly within normal limits. Speech is normal. PSYCHIATRIC: Appropriate mood and affect. Normal insight and judgment LINE: No evidence of infection. Right subclavian central line. Assessment & Plan Remarks MRSA septicemia, source, likely secondary to T11-T12 osteo - KIESHA negative - -baseline ESR 38, CRP 11 - MRI showed abnormal signal involving the dura in the lower thoracic and upper lumbar spine with heterogenous enhancement of T11 and T12 suggest underlying infectious process/osteomyelitis. No obvious epidural collection - BC (+) 10/31-11/04 Yeast (+) BC, likely line, removed 11/09 (originally placed 11/02) Severe low back pain, due to osteo - better as far as pain control Acute kidney injury - likely due to IV contrast - ?Vanco Bilateral pleural effusions COPD exacerbation, improving Suspected PNA -CT Chest minimal effusions, mild basilar atelectasis. Patchy areas of minimal airspace infiltrate. -completed course of Levaquin -on IV steroids and Duonebs Lung nodules -Multiple small parenchymal lung nodules noted on CT of the chest, recommended follow-up, ?emboli Prior Hx labial abscess Aug 2017 Hx livedo vasculopathy Recommendations Repeat BC today Continue daptomycin, Teflaro - follow CPK while on Cubicin Incentive spirometry/acapella at bedside, encourage use Getting HD Continue Micafungin Add Diflucan to cover some dino resistant to Micafungin Follow new C/S Monitor temps Monitor progress Jazmín Velez MD Nov 10, 2017 12:33
[2017-11-10] MEDS: EPOETIN ALFA 10,000 UNITS/ML VIAL IV PUSH PRN (14:35)
[2017-11-10] MEDS: GENTAMICIN SULFATE 20 MG/2 ML VIAL OTHER PRN (14:35)
[2017-11-10] MEDS: HEPARIN SODIUM - IV 10,000 UNITS/10 ML VIAL PRN (14:36)
--- NOTE | 2017-11-10 14:44 | HHI.NPPN ---
Subjective History of Present Illness 47 year old with sepsis now with ARF, thoracic spine fluid collection Objective Data Data Vital Signs Date Time Temp Pulse Resp B/P (MAP) Pulse Ox O2 Delivery O2 Flow Rate FiO2 11/10/17 10:00 Nasal Cannula 2.00 11/10/17 08:06 97.9 82 20 140/73 (95) 98 11/10/17 04:03 98.0 77 18 151/73 (99) 99 11/10/17 04:00 69 11/10/17 00:35 98.2 69 18 169/84 (112) 99 11/10/17 00:00 76 11/10/17 00:00 Nasal Cannula 2.00 11/09/17 20:25 97.8 79 18 149/79 (102) 95 11/09/17 20:00 Nasal Cannula 2.00 11/09/17 20:00 85 11/09/17 16:07 98.0 77 18 132/76 (94) 97 11/09/17 16:05 83 -: 11/10/17 0525 11/10/17 0525 Microbiology 11/09/17 Fungal Culture, Received Pending 11/09/17 Wound Culture - Preliminary, Resulted NO GROWTH IN 24 HOURS. Physical Exam General Appearance: Well Developed, Well Nourished Neck Neck Exam: Neck Supple Pulmonary Resp Exam: Clear Bilaterally, Breath Sounds Equal Cardiology CV Exam: Regular, Normal Sinus Rhythm Gastrointestinal/Abdomen GI Exam: Soft, Distended Extremeties Extremities Exam: Trace Edema Neurologic Neuro Exam: Alert, Awake, Oriented Assessment/Plan Problem List: (1) Acute renal failure ICD Codes: N17.9 - Acute kidney failure, unspecified Plan: Patient has developed acute tubular necrosis after receiving contrast studies and she was on IV vancomycin Patient is nonoliguric bloated high K Vas-Cath inserted Hemodialysis progress noted 2 L of ultrafiltration Continue to monitor progress Follow BMP (2) Osteomyelitis ICD Codes: M86.9 - Osteomyelitis, unspecified Plan: Thoracic spine she is getting daptomycin (3) Bacteremia ICD Codes: R78.81 - Bacteremia (4) MRSA bacteremia ICD Codes: R78.81 - Bacteremia Status: Acute Plan: On daptomycin and ceftaroline (5) Chronic back pain ICD Codes: M54.9 - Dorsalgia, unspecified; G89.29 - Other chronic pain Status: Acute Plan: Possible osteomyelitis (6) COPD with acute exacerbation ICD Codes: J44.1 - Chronic obstructive pulmonary disease with (acute) exacerbation Status: Acute Plan: Continue with current treatment Problem Qualifiers (1) Acute renal failure: Qualified Codes: N17.0 - Acute kidney failure with tubular necrosis (2) Chronic back pain: Qualified Codes: M54.5 - Low back pain; G89.29 - Other chronic pain David Sales MD Nov 10, 2017 14:44
[2017-11-10] MEDS: LACTOBACILLUS ACIDOPHILUS TAB PO SCH ×2 (16:32→18:00)
[2017-11-10] MEDS: FLUCONAZOLE 200 MG TAB PO SCH (16:32)
[2017-11-10] MEDS: DAPTOMYCIN IV SCH (20:43)
[2017-11-10] MEDS: SODIUM CHLORIDE 0.9% IV SCH (20:43)
[2017-11-10] MEDS: MONTELUKAST SODIUM 10 MG TAB PO SCH (20:44)
[2017-11-11] VITALS (12 sets, daily range): BP systolic 138–186; BP diastolic 70–94; PULSE 60–88; RESP 18–20; TEMP 98–98.6; O2SAT 92–98
[2017-11-11] MEDS: DIAZEPAM 5 MG TAB PO PRN ×3 (00:18→19:33)
[2017-11-11] MEDS: HYDROmorphone HCL 4 MG TAB PO PRN ×6 (00:21→23:34)
[2017-11-11] MEDS: CYCLOBENZAPRINE HCL 10 MG TAB PO PRN ×3 (01:24→21:19)
[2017-11-11 04:54] LABS: AUTOMATED NEUTROPHIL # 8.6 TH/MM3 (1.8-7.7); BASOPHIL # 0.1 TH/MM3 (0-0.2); BASOPHIL % 0.7 % (0.0-2.0); EOSINOPHIL # 0.1 TH/MM3 (0-0.4); EOSINOPHIL % 1.1 % (0.0-4.0); HEMATOCRIT 32.5 % (35.0-46.0); HEMOGLOBIN 10.5 GM/DL (11.6-15.3); LYMPH % 11.2 % (9.0-44.0); LYMPHOCYTE # 1.2 TH/MM3 (1.0-4.8); MEAN CORPUSCULAR HEMOGLOBIN 23.4 PG (27.0-34.0); MEAN CORPUSCULAR HGB CONC 32.4 % (32.0-36.0); MEAN PLATELET VOLUME 7.8 FL (7.0-11.0); MONO % 4.2 % (0.0-8.0); MONOCYTE # 0.4 TH/MM3 (0-0.9); NEUT % 82.8 % (16.0-70.0); PLATELET COUNT 290 TH/MM3 (150-450); RED BLOOD COUNT 4.51 MIL/MM3 (4.00-5.30); RED CELL DISTRIBUTION WIDTH 17.7 % (11.6-17.2); WHITE BLOOD COUNT 10.4 TH/MM3 (4.0-11.0)
[2017-11-11 05:24] LABS: ALBUMIN 2.2 GM/DL (3.4-5.0); ALKALINE PHOSPHATASE 70 U/L (45-117); ALT (GPT) 21 U/L (10-53); AST (GOT) 24 U/L (15-37); BICARBONATE 27.2 MEQ/L (21.0-32.0); BLOOD UREA NITROGEN 48 MG/DL (7-18); CALCIUM 8.6 MG/DL (8.5-10.1); CHLORIDE 100 MEQ/L (98-107); CREATININE 4.02 MG/DL (0.50-1.00); GLOMERULAR FILTRATION RATE 12 ML/MIN (>89); GLUCOSE,RANDOM 95 MG/DL (74-106); PHOSPHORUS 6.3 MG/DL (2.5-4.9); SODIUM (NA) 134 MEQ/L (136-145); TOTAL BILIRUBIN ADULT 0.4 MG/DL (0.2-1.0); TOTAL PROTEIN 5.9 GM/DL (6.4-8.2)
[2017-11-11] MEDS: DOCUSATE SODIUM 100 MG CAP PO SCH ×2 (08:43→21:00)
[2017-11-11] MEDS: BENZONATATE 100 MG CAP PO SCH ×3 (08:44→19:33)
[2017-11-11] MEDS: DULoxetine HCl DR 30 MG CAP PO SCH (08:44)
[2017-11-11] MEDS: guaiFENesin E.R. 600 MG TAB PO SCH ×2 (08:45→21:18)
[2017-11-11] MEDS: FUROSEMIDE 40 MG/4 ML VIAL IV PUSH SCH ×2 (08:46→19:33)
[2017-11-11] MEDS: NIFEdipine 60 MG SUSTAINED RELEASE TAB PO SCH (08:46)
[2017-11-11] MEDS: methylPREDNISolone SOD SUCC 40 MG/1 ML VIAL IV PUSH SCH ×2 (08:46→21:18)
[2017-11-11] MEDS: ASPIRIN 325 MG TAB PO SCH (08:46)
[2017-11-11] MEDS: LACTOBACILLUS ACIDOPHILUS TAB PO SCH ×3 (08:46→19:33)
[2017-11-11] MEDS: SODIUM CHLORIDE 0.9% FLUSH 10 ML FLUSH IV FLUSH SCH ×3 (08:47→21:17)
[2017-11-11] MEDS: FLUCONAZOLE 200 MG TAB PO SCH (08:47)
[2017-11-11] MEDS: BUDESONIDE-FORMOTEROL 160/4.5 MCG INHALER INH SCH ×2 (08:49→21:17)
--- NOTE | 2017-11-11 10:04 | HHI.PR ---
Subjective Remarks No further diarrhea. Patient is feeling better status post dialysis. No new complaints from the patient. Objective Vital Signs Date Time Temp Pulse Resp B/P (MAP) Pulse Ox O2 Delivery O2 Flow Rate FiO2 11/11/17 08:01 98.2 72 18 152/78 (102) 98 11/11/17 04:14 98.6 69 20 140/70 (93) 94 11/11/17 04:00 60 11/11/17 00:00 98.6 74 18 186/94 (124) 94 11/11/17 00:00 76 11/10/17 23:54 Nasal Cannula 2.00 11/10/17 20:36 98.3 81 18 163/86 (111) 95 11/10/17 20:00 83 11/10/17 17:00 Nasal Cannula 2.00 11/10/17 16:06 98.0 80 20 138/72 (94) 99 I/O 11/10/17 11/10/17 11/10/17 11/11/17 11/11/17 11/11/17 07:00 15:00 23:00 07:00 15:00 23:00 Intake Total 480 ml 200 ml 240 ml Output Total 900 ml 750 ml Balance -420 ml 200 ml -510 ml Intake Oral 480 ml 240 ml IV Total 200 ml Output Urine Total 900 ml 750 ml # Bowel Movements 5 0 Result Diagram: 11/11/1743711/11/17437 Objective Remarks GENERAL: NAD, A&Ox3 HEAD: Normocephalic. NECK: Supple, trachea midline. No lymphadenopathy. EYES: No scleral icterus. No injection or drainage. CARDIOVASCULAR: Regular rate and rhythm without murmurs, gallops, or rubs. RESPIRATORY: Breath sounds equal bilaterally. No accessory muscle use. GASTROINTESTINAL: Abdomen soft, non-tender, nondistended. MUSCULOSKELETAL: No cyanosis, or edema. SKIN: Warm and dry. NEURO: No focal neurological deficitis. A/P Problem List: (1) Bacteremia ICD Code: R78.81 - Bacteremia (2) Osteomyelitis ICD Code: M86.9 - Osteomyelitis, unspecified Assessment and Plan 47-year-old female admitted secondary to an exacerbation of back pain suspected to be T11-T12 osteomyelitis, with persisting MRSA bacteremia. Labs reviewed. Creatinine improved after dialysis. Continue to monitor labs. Labs ordered for further monitoring. Continue to monitor renal function. Continue to follow blood cultures. 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 Acute kidney injury IV hydration started Follow renal function Avoid nephrotoxins Suspected pneumonia Levofloxacin continued, will complete tomorrow Hypertension Continue baseline treatment Follow blood pressures Adjust treatments as needed Continue nifedipine COPD continue DuoNeb, Symbicort, Mucinex. Continue Solu-Medrol 40 mg IV every 12 hours. Chronic back pain continue Flexeril, Valium, hydromorphone as needed. DVT prophylaxis Everardox Robert Campbell MD Nov 11, 2017 10:04
--- NOTE | 2017-11-11 10:56 | HHI.IDPN ---
Subjective Subjective Remarks Patient is a 47-year-old female, with known history of asthma, presented to the hospital complaining of severe low back pain for 3 days, with shortness of breath. She has some cough but she was afraid to cough because it worsens her back pain. She was also having fever and chills. Denies any chest pain, or any urinary complaints. She's had some constipation. The pain in her back goes like it's muscular, but it is now coming shooting pain that goes up her upper spine. 2 blood cultures done on admission are now reported as growing MRSA. Her chest x-rays normal. He has been getting worse in the back. Her WBC is elevated. She is getting Decadron and Levaquin for her pulmonary problem. 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 She had an admission back in August for labial abscess and the culture had MRSA. She was not bacteremic at that time. Infectious disease consultation has been requested to evaluate the patient. Notes reviewed. Temps ok Last (+) BC with MRSA 11/04 New BC came up (+) with Diane albicans Line C/S negative so far No new (+)BC Central line removed 11/09 Had HD yesterday Creatinine lower Making urine Feels less swollen in her truck No diarrhea today No rash or itching CT A/P and chest, no abscess, has some nodules in lung MRI showed abnormal signal involving the dura in the lower thoracic and upper lumbar spine with heterogenous enhancement of T11 and T12 suggest underlying infectious process/osteomyelitis. No obvious epidural collection. Echo showed EF 50-55%. Wall thickness normal. Normal left ventricular. Trace MVR. Trace TVR. No vegetation KIESHA unremarkable Antibiotics Daptomycin IV Teflaro Micafungin Diflucan Current Medications Medications (Trade) Dose Ordered Sig/Juanpablo Route Start Time Stop Time Status Last Admin (Duoneb Neb) 1 ampule Q2HR NEB PRN NEB 10/30/17 22:45 (Mucinex Er) 600 mg BID PO 10/31/17 09:00 11/11/17 08:45 (NS Flush) 2 ml UNSCH PRN IV FLUSH 10/30/17 22:45 11/10/17 05:25 (NS Flush) 2 ml BID IV FLUSH 10/31/17 09:00 11/11/17 08:47 (Zofran Inj) 4 mg Q6H PRN IVP 10/30/17 22:45 (Tylenol) 650 mg Q6H PRN PO 10/30/17 22:45 10/31/17 07:11 (Milk Of Magnesia Liq) 30 ml Q12H PRN PO 10/30/17 22:45 (Senokot) 17.2 mg Q12H PRN PO 10/30/17 22:45 10/31/17 07:41 (Dulcolax Supp) 10 mg DAILY PRN RECTAL 10/30/17 22:45 (Lactulose Liq) 30 ml DAILY PRN PO 10/30/17 22:45 (Aspirin) 325 mg DAILY PO 10/31/17 09:00 11/11/17 08:46 (Symbicort 160-4.5 Mcg Inh) 2 puff Q12HR INH 10/31/17 09:00 11/11/17 08:49 (Cymbalta Dr) 30 mg DAILY PO 10/31/17 09:00 11/11/17 08:44 (Dilaudid) 4 mg Q4H PRN PO 10/30/17 22:45 11/11/17 08:47 (Singulair) 10 mg HS PO 10/31/17 21:00 11/10/17 20:44 (Valium) 5 mg Q8H PRN PO 10/30/17 23:00 11/11/17 08:47 (Tessalon) 100 mg TID PO 10/31/17 13:00 11/11/17 08:44 (Flexeril) 5 mg Q8H PRN PO 10/31/17 10:45 11/11/17 01:24 (Lovenox Inj) 30 mg Q24H SQ 10/31/17 11:00 11/09/17 10:58 (Pill Splitter) 1 ea UNSCH PRN OTHER 10/31/17 11:00 (NS Flush) DAILY IV FLUSH 11/03/17 09:00 11/11/17 08:48 (NS Flush) UNSCH PRN IV FLUSH 11/02/17 14:15 (Dilaudid Pf Inj) 0.5 mg Q3H PRN IV PUSH 11/04/17 16:15 (SoluMEDROL INJ) 40 mg Q12HR IV PUSH 11/04/17 21:00 11/11/17 08:46 (Colace) 100 mg BID PO 11/04/17 21:00 11/09/17 08:47 (Catapres) 0.1 mg Q6H PRN PO 11/04/17 13:45 11/10/17 20:55 (Procardia Xl) 60 mg DAILY PO 11/06/17 09:00 11/11/17 08:46 Daptomycin 970 mg/ Sodium Chloride 100 ml @ 200 mls/hr Q48H IV 11/08/17 21:00 11/10/17 20:43 Ceftaroline Fosamil 300 mg/ Sodium Chloride 100 ml @ 100 mls/hr Q12H IV 11/08/17 10:00 11/10/17 20:55 Micafungin Sodium 100 mg/Sodium Chloride 100 ml @ 100 mls/hr Q24H IV 11/09/17 10:00 11/10/17 09:12 (Lasix Inj) 60 mg BID@ IV PUSH 11/10/17 09:00 11/11/17 08:46 (NS Flush) UNSCH PRN IV FLUSH 11/10/17 09:45 (Heparin Inj) UNSCH PRN IV FLUSH 11/10/17 09:45 (Lactinex) 1 tab TID PO 11/10/17 13:00 11/11/17 08:46 Sodium Chloride 1,000 ml @ 0 mls/hr Q0M PRN OTHER 11/10/17 11:38 (Heparin Inj) 8,000 units UNSCH PRN IV FLUSH 11/10/17 11:45 Sodium Chloride 1,000 ml @ 200 mls/hr Q5H PRN IV 11/10/17 11:38 Sodium Chloride 1,000 ml @ 0 mls/hr Q0M PRN OTHER 11/10/17 11:38 (Mannitol Inj) 12.5 gm UNSCH PRN IV 11/10/17 11:45 Albumin Human 100 ml @ 60 mls/hr UNSCH PRN IV 11/10/17 11:45 (NS Flush) 5 ml UNSCH PRN IV FLUSH 11/10/17 11:45 (Heparin Inj) UNSCH PRN .XX 11/10/17 11:45 11/10/17 14:36 (Gentamicin Inj) 20 mg UNSCH PRN OTHER 11/10/17 11:45 11/10/17 14:35 (Zofran Inj) 4 mg UNSCH PRN IV PUSH 11/10/17 11:45 (Tylenol) 650 mg UNSCH PRN PO 11/10/17 11:45 (Benadryl) 25 mg UNSCH PRN PO 11/10/17 11:45 (Nitrostat Sl) 0.4 mg UNSCH PRN SL 11/10/17 11:45 (Catapres) 0.1 mg UNSCH PRN PO 11/10/17 11:45 (Epogen Inj) 4,000 units UNSCH PRN IV PUSH 11/10/17 11:45 11/10/17 14:35 (Gelfoam 12 Mm/7 Mm Top) 1 foam UNSCH PRN TOP 11/10/17 11:45 (Diflucan) 400 mg DAILY PO 11/10/17 13:00 11/11/17 08:47 Lines LIJ central line RIJ vascath Past Medical History Livedo vasculopathy, 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 COPD. GERD. Obesity. 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 Labial abscess, drained Past Surgical History Screws / plats in left elbow Left breast abscess drainage I and D labial abscess Allergies: Coded Allergies: No Known Allergies (Verified Allergy, Unknown, 11/09/17) Objective . Vital Signs Date Time Temp Pulse Resp B/P (MAP) Pulse Ox O2 Delivery O2 Flow Rate FiO2 11/11/17 08:01 98.2 72 18 152/78 (102) 98 11/11/17 07:50 68 11/11/17 04:14 98.6 69 20 140/70 (93) 94 11/11/17 04:00 60 11/11/17 00:00 98.6 74 18 186/94 (124) 94 11/11/17 00:00 76 11/10/17 23:54 Nasal Cannula 2.00 11/10/17 20:36 98.3 81 18 163/86 (111) 95 11/10/17 20:00 83 11/10/17 17:00 Nasal Cannula 2.00 11/10/17 16:06 98.0 80 20 138/72 (94) 99 . Laboratory Tests Test 11/10/17 05:25 11/11/17 04:38 White Blood Count 9.6 TH/MM3 10.4 TH/MM3 Red Blood Count 4.43 MIL/MM3 4.51 MIL/MM3 Hemoglobin 10.6 GM/DL 10.5 GM/DL Hematocrit 33.4 % 32.5 % Mean Corpuscular Volume 75.5 FL 72.0 FL Mean Corpuscular Hemoglobin 24.0 PG 23.4 PG Mean Corpuscular Hemoglobin Concent 31.8 % 32.4 % Red Cell Distribution Width 17.7 % 17.7 % Platelet Count 274 TH/MM3 290 TH/MM3 Mean Platelet Volume 8.1 FL 7.8 FL Neutrophils (%) (Auto) 81.7 % 82.8 % Lymphocytes (%) (Auto) 10.5 % 11.2 % Monocytes (%) (Auto) 5.4 % 4.2 % Eosinophils (%) (Auto) 2.0 % 1.1 % Basophils (%) (Auto) 0.4 % 0.7 % Neutrophils # (Auto) 7.9 TH/MM3 8.6 TH/MM3 Lymphocytes # (Auto) 1.0 TH/MM3 1.2 TH/MM3 Monocytes # (Auto) 0.5 TH/MM3 0.4 TH/MM3 Eosinophils # (Auto) 0.2 TH/MM3 0.1 TH/MM3 Basophils # (Auto) 0.0 TH/MM3 0.1 TH/MM3 CBC Comment DIFF FINAL DIFF FINAL Differential Comment Laboratory Tests Test 11/10/17 05:25 11/11/17 04:38 Blood Urea Nitrogen 70 MG/DL 48 MG/DL Creatinine 4.93 MG/DL 4.02 MG/DL Random Glucose 66 MG/DL 95 MG/DL Total Protein 5.5 GM/DL 5.9 GM/DL Albumin 1.9 GM/DL 2.2 GM/DL Calcium Level 7.9 MG/DL 8.6 MG/DL Alkaline Phosphatase 65 U/L 70 U/L Aspartate Amino Transf (AST/SGOT) 22 U/L 24 U/L Alanine Aminotransferase (ALT/SGPT) 25 U/L 21 U/L Total Bilirubin 0.4 MG/DL 0.4 MG/DL Sodium Level 136 MEQ/L 134 MEQ/L Potassium Level 5.2 MEQ/L 4.6 MEQ/L Chloride Level 106 MEQ/L 100 MEQ/L Carbon Dioxide Level 19.2 MEQ/L 27.2 MEQ/L Anion Gap 11 MEQ/L 7 MEQ/L Estimat Glomerular Filtration Rate 9 ML/MIN 12 ML/MIN Phosphorus Level 6.3 MG/DL Microbiology Date/Time Source Procedure Growth Status 11/10/17 16:45 Blood Peripheral Aerobic Blood Culture Pending Received 11/10/17 16:45 Blood Peripheral Anaerobic Blood Culture Pending Received 11/09/17 13:50 Blood Peripheral Aerobic Blood Culture - Preliminary NO GROWTH IN 1 DAY Resulted 11/09/17 13:50 Blood Peripheral Anaerobic Blood Culture - Final QNS - SEE AEROBE REPORT Resulted 11/09/17 11:24 Blood Line Aerobic Blood Culture - Preliminary NO GROWTH IN 1 DAY Resulted 11/09/17 11:24 Blood Line Anaerobic Blood Culture - Preliminary NO GROWTH IN 1 DAY Resulted 11/09/17 15:30 Catheter Tip Central Venous Line Fungal Culture Pending Received 11/09/17 15:30 Catheter Tip Central Venous Line Wound Culture - Preliminary NO GROWTH IN 48 HOURS. Resulted Imaging Last Impressions Chest CT 11/03/17 0000 Signed Impressions: Service Date/Time: Friday, November 03, 2017 22:37 - CONCLUSION: Minimal effusions. Mild basilar atelectasis. Patchy areas of minimal airspace infiltrate. Multiple small parenchymal lung nodules which should be followed Domenic Pulido MD Abdomen/Pelvis CT 11/03/17 0000 Signed Impressions: Service Date/Time: Friday, November 03, 2017 22:37 - CONCLUSION: 1. Small bilateral pleural effusions with mild basilar atelectasis the lungs. No acute findings within the abdomen and pelvis. Moderate constipation of the right colon. Melchor Caceres MD Central Venous Line 11/02/17 0000 Signed Impressions: Service Date/Time: Thursday, November 02, 2017 14:08 - CONCLUSION: Uncomplicated line placement as above. Robert Navarro MD Thoracic Spine MRI 11/01/17 0000 Signed Impressions: Service Date/Time: Wednesday, November 01, 2017 17:21 - CONCLUSION: There is heterogeneous enhancement T11 and T12 with surrounding perivertebral edema and dural enhancement anterior and posterior to the cord. A well-defined mass is not seen. Intervertebral disc signal intensity is normal without enhancement to suggest discitis, however an osteomyelitis or other underlying infectious process should be excluded. Valente Prasad MD Lumbar Spine X-Ray 11/01/17 0000 Signed Impressions: Service Date/Time: Wednesday, November 01, 2017 18:18 - CONCLUSION: No acute disease. Valente Prasad MD Lumbar Spine MRI 11/01/17 0000 Signed Impressions: Service Date/Time: Wednesday, November 01, 2017 17:21 - CONCLUSION: Abnormal signal involving the dura in the lower thoracic and upper lumbar spine with heterogeneous enhancement of T11 and T12 suggest underlying infectious process/osteomyelitis. No obvious epidural collections at this time.. Valente Prasad MD Chest X-Ray 10/30/172031 Signed Impressions: Service Date/Time: Monday, October 30, 2017 21:48 - CONCLUSION: No acute disease. Domenic Davis MD Physical Exam GENERAL: NAD. Awake and alert. SKIN: Warm and dry. No generalized rash, no ecchymoses and no evidence of embolic lesions. Has brownish pigmentation on both lower legs HEAD: Atraumatic. Normocephalic. EYES: [place] conjunctiva. No petechia or hemorrhage. Extraocular movements full and intact. No scleral icterus. No injection or drainage. EARS, NOSE AND THROAT: Nose without bleeding or purulent nasal discharge. No sinus tenderness. Mucous membranes pink and moist. No oral lesions noted. No oral thrush. NECK: Trachea midline. RIJ and LIJ line ok CARDIAC: Regular rate and rhythm. No murmurs, rubs or gallops heard RESPIRATORY: Diminished breath sounds but clear to auscultation. ABDOMEN: Soft, non-tender, nondistended. Bowel sounds present and normoactive. EXTREMITIES: No clubbing, cyanosis, or edema. No calf tenderness NEUROLOGICAL: Awake and alert. Cranial nerves grossly intact. Motor grossly within normal limits. Speech is normal. PSYCHIATRIC: Appropriate mood and affect. Normal insight and judgment LINE: No evidence of infection. Assessment & Plan Remarks MRSA septicemia, source, likely secondary to T11-T12 osteo - KIESHA negative - -baseline ESR 38, CRP 11 - MRI showed abnormal signal involving the dura in the lower thoracic and upper lumbar spine with heterogenous enhancement of T11 and T12 suggest underlying infectious process/osteomyelitis. No obvious epidural collection - BC (+) 10/31-11/04 Diane albicans (+) BC, likely line, removed 11/09 (originally placed 11/02) Severe low back pain, due to osteo - better as far as pain control Acute kidney injury - likely due to IV contrast - ?Vanco Bilateral pleural effusions COPD exacerbation, improving Suspected PNA -CT Chest minimal effusions, mild basilar atelectasis. Patchy areas of minimal airspace infiltrate. -completed course of Levaquin -on IV steroids and Duonebs Lung nodules -Multiple small parenchymal lung nodules noted on CT of the chest, recommended follow-up, ?emboli Prior Hx labial abscess Aug 2017 Hx livedo vasculopathy Recommendations Repeat BC today Continue daptomycin, Teflaro - follow CPK while on Cubicin Incentive spirometry/acapella at bedside, encourage use Getting HD Stop Micafungin Continue Diflucan Follow new C/S Monitor temps Monitor progress D/W Jazmín Keller MD Nov 11, 2017 10:56
[2017-11-11] MEDS: ENOXAPARIN SODIUM 30 MG/0.3 ML SYRINGE SQ SCH (12:57)
[2017-11-11] MEDS: CEFTAROLINE INJ 300 MG in SODIUM CHLORIDE 0.9% INJ 100 ML IV SCH ×2 (12:57→21:19)
[2017-11-11] MEDS: GENTAMICIN SULFATE 20 MG/2 ML VIAL OTHER PRN (18:10)
[2017-11-11] MEDS: EPOETIN ALFA 10,000 UNITS/ML VIAL IV PUSH PRN (18:10)
[2017-11-11] MEDS: HEPARIN SODIUM - IV 10,000 UNITS/10 ML VIAL PRN (18:10)
--- NOTE | 2017-11-11 20:40 | HHI.NPPN ---
Subjective History of Present Illness 47 year old with sepsis now with ARF, thoracic spine fluid collection Objective Data Data 11/11/17 11/12/17 19:00 07:00 Output Total 1800 ml Balance -1800 ml Hemodialysis 1800 ml Vital Signs Date Time Temp Pulse Resp B/P (MAP) Pulse Ox O2 Delivery O2 Flow Rate FiO2 11/11/17 16:00 Nasal Cannula 2.00 11/11/17 15:51 77 11/11/17 12:23 98.1 63 18 146/74 (98) 92 11/11/17 12:00 Nasal Cannula 2.00 11/11/17 11:43 69 11/11/17 08:01 98.2 72 18 152/78 (102) 98 11/11/17 08:00 Nasal Cannula 2.00 11/11/17 07:50 68 11/11/17 04:14 98.6 69 20 140/70 (93) 94 11/11/17 04:00 60 11/11/17 00:00 98.6 74 18 186/94 (124) 94 11/11/17 00:00 76 11/10/17 23:54 Nasal Cannula 2.00 -: 11/11/17 0438 11/11/17 0438 Physical Exam General Appearance: Well Developed, Well Nourished Neck Neck Exam: Neck Supple Pulmonary Resp Exam: Clear Bilaterally, Breath Sounds Equal Cardiology CV Exam: Regular, Normal Sinus Rhythm Gastrointestinal/Abdomen GI Exam: Soft, Distended Extremeties Extremities Exam: Trace Edema Neurologic Neuro Exam: Alert, Awake, Oriented Assessment/Plan Problem List: (1) Acute renal failure ICD Codes: N17.9 - Acute kidney failure, unspecified Plan: Patient has developed acute tubular necrosis after receiving contrast studies and she was on IV vancomycin Patient is nonoliguric bloated Vas-Cath Hemodialysis progress noted l.8L of ultrafiltration Continue to monitor progress Follow BMP (2) Osteomyelitis ICD Codes: M86.9 - Osteomyelitis, unspecified Plan: Thoracic spine she is getting daptomycin (3) Bacteremia ICD Codes: R78.81 - Bacteremia (4) MRSA bacteremia ICD Codes: R78.81 - Bacteremia Status: Acute Plan: On daptomycin and ceftaroline (5) Chronic back pain ICD Codes: M54.9 - Dorsalgia, unspecified; G89.29 - Other chronic pain Status: Acute Plan: Possible osteomyelitis (6) COPD with acute exacerbation ICD Codes: J44.1 - Chronic obstructive pulmonary disease with (acute) exacerbation Status: Acute Plan: Continue with current treatment Problem Qualifiers (1) Acute renal failure: Qualified Codes: N17.0 - Acute kidney failure with tubular necrosis (2) Chronic back pain: Qualified Codes: M54.5 - Low back pain; G89.29 - Other chronic pain David Sales MD Nov 11, 2017 20:40
[2017-11-11] MEDS: MONTELUKAST SODIUM 10 MG TAB PO SCH (21:18)
[2017-11-12] VITALS (9 sets, daily range): BP systolic 129–155; BP diastolic 70–77; PULSE 60–71; RESP 17–18; TEMP 97.8–98.4; O2SAT 93–98
[2017-11-12] MEDS: HYDROmorphone HCL 4 MG TAB PO PRN ×6 (03:39→22:55)
[2017-11-12] MEDS: DIAZEPAM 5 MG TAB PO PRN ×3 (03:39→18:59)
[2017-11-12] MEDS: CYCLOBENZAPRINE HCL 10 MG TAB PO PRN ×3 (07:04→22:55)
[2017-11-12] MEDS: DOCUSATE SODIUM 100 MG CAP PO SCH ×3 (09:00→22:54)
[2017-11-12] MEDS: SODIUM CHLORIDE 0.9% FLUSH 10 ML FLUSH IV FLUSH SCH ×3 (09:00→21:00)
[2017-11-12] MEDS: BUDESONIDE-FORMOTEROL 160/4.5 MCG INHALER INH SCH ×2 (09:45→21:00)
[2017-11-12] MEDS: FUROSEMIDE 40 MG/4 ML VIAL IV PUSH SCH ×2 (09:51→17:39)
[2017-11-12] MEDS: methylPREDNISolone SOD SUCC 40 MG/1 ML VIAL IV PUSH SCH (09:51)
[2017-11-12] MEDS: BENZONATATE 100 MG CAP PO SCH ×3 (09:52→17:38)
[2017-11-12] MEDS: NIFEdipine 60 MG SUSTAINED RELEASE TAB PO SCH (09:52)
[2017-11-12] MEDS: DULoxetine HCl DR 30 MG CAP PO SCH (09:52)
[2017-11-12] MEDS: LACTOBACILLUS ACIDOPHILUS TAB PO SCH ×3 (09:52→17:38)
[2017-11-12] MEDS: ASPIRIN 325 MG TAB PO SCH (09:53)
[2017-11-12] MEDS: guaiFENesin E.R. 600 MG TAB PO SCH ×2 (09:53→22:54)
[2017-11-12] MEDS: FLUCONAZOLE 200 MG TAB PO SCH (09:53)
--- NOTE | 2017-11-12 10:44 | HHI.IDPN ---
Subjective Subjective Remarks Patient is a 47-year-old female, with known history of asthma, presented to the hospital complaining of severe low back pain for 3 days, with shortness of breath. She has some cough but she was afraid to cough because it worsens her back pain. She was also having fever and chills. Denies any chest pain, or any urinary complaints. She's had some constipation. The pain in her back goes like it's muscular, but it is now coming shooting pain that goes up her upper spine. 2 blood cultures done on admission are now reported as growing MRSA. Her chest x-rays normal. He has been getting worse in the back. Her WBC is elevated. She is getting Decadron and Levaquin for her pulmonary problem. 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 She had an admission back in August for labial abscess and the culture had MRSA. She was not bacteremic at that time. Infectious disease consultation has been requested to evaluate the patient. Notes reviewed. Temps ok Last (+) BC with MRSA 11/04 New BC came up (+) with Diane albicans Fup BC negative so far Line C/S negative so far No new (+)BC Central line removed 11/09 Had HD yesterday Creatinine lower Making urine Feels less swollen in her trunk though still swollen No BM today so far C Diff negative No rash or itching CT A/P and chest, no abscess, has some nodules in lung MRI showed abnormal signal involving the dura in the lower thoracic and upper lumbar spine with heterogenous enhancement of T11 and T12 suggest underlying infectious process/osteomyelitis. No obvious epidural collection. Echo showed EF 50-55%. Wall thickness normal. Normal left ventricular. Trace MVR. Trace TVR. No vegetation KIESHA unremarkable Antibiotics Daptomycin IV Teflaro Diflucan Current Medications Medications (Trade) Dose Ordered Sig/Juanpablo Route Start Time Stop Time Status Last Admin (Duoneb Neb) 1 ampule Q2HR NEB PRN NEB 10/30/17 22:45 (Mucinex Er) 600 mg BID PO 10/31/17 09:00 11/11/17 08:45 (NS Flush) 2 ml UNSCH PRN IV FLUSH 10/30/17 22:45 11/10/17 05:25 (NS Flush) 2 ml BID IV FLUSH 10/31/17 09:00 11/11/17 08:47 (Zofran Inj) 4 mg Q6H PRN IVP 10/30/17 22:45 (Tylenol) 650 mg Q6H PRN PO 10/30/17 22:45 10/31/17 07:11 (Milk Of Magnesia Liq) 30 ml Q12H PRN PO 10/30/17 22:45 (Senokot) 17.2 mg Q12H PRN PO 10/30/17 22:45 10/31/17 07:41 (Dulcolax Supp) 10 mg DAILY PRN RECTAL 10/30/17 22:45 (Lactulose Liq) 30 ml DAILY PRN PO 10/30/17 22:45 (Aspirin) 325 mg DAILY PO 10/31/17 09:00 11/11/17 08:46 (Symbicort 160-4.5 Mcg Inh) 2 puff Q12HR INH 10/31/17 09:00 11/11/17 08:49 (Cymbalta Dr) 30 mg DAILY PO 10/31/17 09:00 11/11/17 08:44 (Dilaudid) 4 mg Q4H PRN PO 10/30/17 22:45 11/11/17 08:47 (Singulair) 10 mg HS PO 10/31/17 21:00 11/10/17 20:44 (Valium) 5 mg Q8H PRN PO 10/30/17 23:00 11/11/17 08:47 (Tessalon) 100 mg TID PO 10/31/17 13:00 11/11/17 08:44 (Flexeril) 5 mg Q8H PRN PO 10/31/17 10:45 11/11/17 01:24 (Lovenox Inj) 30 mg Q24H SQ 10/31/17 11:00 11/09/17 10:58 (Pill Splitter) 1 ea UNSCH PRN OTHER 10/31/17 11:00 (NS Flush) DAILY IV FLUSH 11/03/17 09:00 11/11/17 08:48 (NS Flush) UNSCH PRN IV FLUSH 11/02/17 14:15 (Dilaudid Pf Inj) 0.5 mg Q3H PRN IV PUSH 11/04/17 16:15 (SoluMEDROL INJ) 40 mg Q12HR IV PUSH 11/04/17 21:00 11/11/17 08:46 (Colace) 100 mg BID PO 11/04/17 21:00 11/09/17 08:47 (Catapres) 0.1 mg Q6H PRN PO 11/04/17 13:45 11/10/17 20:55 (Procardia Xl) 60 mg DAILY PO 11/06/17 09:00 11/11/17 08:46 Daptomycin 970 mg/ Sodium Chloride 100 ml @ 200 mls/hr Q48H IV 11/08/17 21:00 11/10/17 20:43 Ceftaroline Fosamil 300 mg/ Sodium Chloride 100 ml @ 100 mls/hr Q12H IV 11/08/17 10:00 11/10/17 20:55 Micafungin Sodium 100 mg/Sodium Chloride 100 ml @ 100 mls/hr Q24H IV 11/09/17 10:00 11/10/17 09:12 (Lasix Inj) 60 mg BID@, IV PUSH 11/10/17 09:00 11/11/17 08:46 (NS Flush) UNSCH PRN IV FLUSH 11/10/17 09:45 (Heparin Inj) UNSCH PRN IV FLUSH 11/10/17 09:45 (Lactinex) 1 tab TID PO 11/10/17 13:00 11/11/17 08:46 Sodium Chloride 1,000 ml @ 0 mls/hr Q0M PRN OTHER 11/10/17 11:38 (Heparin Inj) 8,000 units UNSCH PRN IV FLUSH 11/10/17 11:45 Sodium Chloride 1,000 ml @ 200 mls/hr Q5H PRN IV 11/10/17 11:38 Sodium Chloride 1,000 ml @ 0 mls/hr Q0M PRN OTHER 11/10/17 11:38 (Mannitol Inj) 12.5 gm UNSCH PRN IV 11/10/17 11:45 Albumin Human 100 ml @ 60 mls/hr UNSCH PRN IV 11/10/17 11:45 (NS Flush) 5 ml UNSCH PRN IV FLUSH 11/10/17 11:45 (Heparin Inj) UNSCH PRN .XX 11/10/17 11:45 11/10/17 14:36 (Gentamicin Inj) 20 mg UNSCH PRN OTHER 11/10/17 11:45 11/10/17 14:35 (Zofran Inj) 4 mg UNSCH PRN IV PUSH 11/10/17 11:45 (Tylenol) 650 mg UNSCH PRN PO 11/10/17 11:45 (Benadryl) 25 mg UNSCH PRN PO 11/10/17 11:45 (Nitrostat Sl) 0.4 mg UNSCH PRN SL 11/10/17 11:45 (Catapres) 0.1 mg UNSCH PRN PO 11/10/17 11:45 (Epogen Inj) 4,000 units UNSCH PRN IV PUSH 11/10/17 11:45 11/10/17 14:35 (Gelfoam 12 Mm/7 Mm Top) 1 foam UNSCH PRN TOP 11/10/17 11:45 (Diflucan) 400 mg DAILY PO 11/10/17 13:00 11/11/17 08:47 Lines LIJ central line RIJ vascath Past Medical History Livedo vasculopathy, 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 COPD. GERD. Obesity. 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 Labial abscess, drained Past Surgical History Screws / plats in left elbow Left breast abscess drainage I and D labial abscess Allergies: Coded Allergies: No Known Allergies (Verified Allergy, Unknown, 11/09/17) Objective . Vital Signs Date Time Temp Pulse Resp B/P (MAP) Pulse Ox O2 Delivery O2 Flow Rate FiO2 11/12/17 09:34 93 Nasal Cannula 2.00 11/12/17 08:08 97.9 71 18 137/74 (95) 93 11/12/17 04:37 97.8 62 18 132/70 (90) 97 11/12/17 01:52 Nasal Cannula 2.00 11/12/17 00:17 98.3 63 18 155/77 (103) 93 11/11/17 23:49 64 11/11/17 21:01 96 Nasal Cannula 2.00 11/11/17 20:00 75 11/11/17 19:40 98.0 88 18 138/74 (95) 95 Automatic Cuff 11/11/17 16:00 Nasal Cannula 2.00 11/11/17 15:51 77 11/11/17 12:23 98.1 63 18 146/74 (98) 92 11/11/17 12:00 Nasal Cannula 2.00 11/11/17 11:43 69 . Laboratory Tests Test 11/11/17 04:38 White Blood Count 10.4 TH/MM3 Red Blood Count 4.51 MIL/MM3 Hemoglobin 10.5 GM/DL Hematocrit 32.5 % Mean Corpuscular Volume 72.0 FL Mean Corpuscular Hemoglobin 23.4 PG Mean Corpuscular Hemoglobin Concent 32.4 % Red Cell Distribution Width 17.7 % Platelet Count 290 TH/MM3 Mean Platelet Volume 7.8 FL Neutrophils (%) (Auto) 82.8 % Lymphocytes (%) (Auto) 11.2 % Monocytes (%) (Auto) 4.2 % Eosinophils (%) (Auto) 1.1 % Basophils (%) (Auto) 0.7 % Neutrophils # (Auto) 8.6 TH/MM3 Lymphocytes # (Auto) 1.2 TH/MM3 Monocytes # (Auto) 0.4 TH/MM3 Eosinophils # (Auto) 0.1 TH/MM3 Basophils # (Auto) 0.1 TH/MM3 CBC Comment DIFF FINAL Differential Comment Laboratory Tests Test 11/11/17 04:38 Blood Urea Nitrogen 48 MG/DL Creatinine 4.02 MG/DL Random Glucose 95 MG/DL Total Protein 5.9 GM/DL Albumin 2.2 GM/DL Calcium Level 8.6 MG/DL Phosphorus Level 6.3 MG/DL Alkaline Phosphatase 70 U/L Aspartate Amino Transf (AST/SGOT) 24 U/L Alanine Aminotransferase (ALT/SGPT) 21 U/L Total Bilirubin 0.4 MG/DL Sodium Level 134 MEQ/L Potassium Level 4.6 MEQ/L Chloride Level 100 MEQ/L Carbon Dioxide Level 27.2 MEQ/L Anion Gap 7 MEQ/L Estimat Glomerular Filtration Rate 12 ML/MIN Microbiology Date/Time Source Procedure Growth Status 11/10/17 16:45 Blood Peripheral Aerobic Blood Culture - Preliminary NO GROWTH IN 1 DAY Resulted 11/10/17 16:45 Blood Peripheral Anaerobic Blood Culture - Preliminary NO GROWTH IN 1 DAY Resulted 11/09/17 13:50 Blood Peripheral Aerobic Blood Culture - Preliminary NO GROWTH IN 2 DAYS Resulted 11/09/17 13:50 Blood Peripheral Anaerobic Blood Culture - Final QNS - SEE AEROBE REPORT Resulted 11/09/17 11:24 Blood Line Aerobic Blood Culture - Preliminary NO GROWTH IN 2 DAYS Resulted 11/09/17 11:24 Blood Line Anaerobic Blood Culture - Preliminary NO GROWTH IN 2 DAYS Resulted 11/09/17 15:30 Catheter Tip Central Venous Line Fungal Culture - Final Complete 11/09/17 15:30 Catheter Tip Central Venous Line Wound Culture - Final NO GROWTH IN 72 HOURS Complete Imaging Last Impressions Chest CT 11/03/17 0000 Signed Impressions: Service Date/Time: Friday, November 03, 2017 22:37 - CONCLUSION: Minimal effusions. Mild basilar atelectasis. Patchy areas of minimal airspace infiltrate. Multiple small parenchymal lung nodules which should be followed Domenic Pulido MD Abdomen/Pelvis CT 11/03/17 0000 Signed Impressions: Service Date/Time: Friday, November 03, 2017 22:37 - CONCLUSION: 1. Small bilateral pleural effusions with mild basilar atelectasis the lungs. No acute findings within the abdomen and pelvis. Moderate constipation of the right colon. Melchor Caceres MD Central Venous Line 11/02/17 0000 Signed Impressions: Service Date/Time: Thursday, November 02, 2017 14:08 - CONCLUSION: Uncomplicated line placement as above. Robert Navarro MD Thoracic Spine MRI 11/01/17 0000 Signed Impressions: Service Date/Time: Wednesday, November 01, 2017 17:21 - CONCLUSION: There is heterogeneous enhancement T11 and T12 with surrounding perivertebral edema and dural enhancement anterior and posterior to the cord. A well-defined mass is not seen. Intervertebral disc signal intensity is normal without enhancement to suggest discitis, however an osteomyelitis or other underlying infectious process should be excluded. Valente Prasad MD Lumbar Spine X-Ray 11/01/17 0000 Signed Impressions: Service Date/Time: Wednesday, November 01, 2017 18:18 - CONCLUSION: No acute disease. Valente Prasad MD Lumbar Spine MRI 11/01/17 0000 Signed Impressions: Service Date/Time: Wednesday, November 01, 2017 17:21 - CONCLUSION: Abnormal signal involving the dura in the lower thoracic and upper lumbar spine with heterogeneous enhancement of T11 and T12 suggest underlying infectious process/osteomyelitis. No obvious epidural collections at this time.. Valente Prasad MD Chest X-Ray 10/30/172031 Signed Impressions: Service Date/Time: Monday, October 30, 2017 21:48 - CONCLUSION: No acute disease. Domenic Davis MD Physical Exam GENERAL: NAD. Awake and alert. SKIN: Warm and dry. No generalized rash, no ecchymoses and no evidence of embolic lesions. Has brownish pigmentation on both lower legs HEAD: Atraumatic. Normocephalic. EYES: [place] conjunctiva. No petechia or hemorrhage. Extraocular movements full and intact. No scleral icterus. No injection or drainage. EARS, NOSE AND THROAT: Nose without bleeding or purulent nasal discharge. No sinus tenderness. Mucous membranes pink and moist. No oral lesions noted. No oral thrush. NECK: Trachea midline. RIJ and LIJ line ok CARDIAC: Regular rate and rhythm. No murmurs, rubs or gallops heard RESPIRATORY: Diminished breath sounds but clear to auscultation. ABDOMEN: Soft, non-tender, nondistended. Bowel sounds present and normoactive. EXTREMITIES: No clubbing, cyanosis, or edema. No calf tenderness NEUROLOGICAL: Awake and alert. Cranial nerves grossly intact. Motor grossly within normal limits. Speech is normal. PSYCHIATRIC: Appropriate mood and affect. Normal insight and judgment LINE: No evidence of infection. Assessment & Plan Remarks MRSA septicemia, source, likely secondary to T11-T12 osteo - KIESHA negative - -baseline ESR 38, CRP 11 - MRI showed abnormal signal involving the dura in the lower thoracic and upper lumbar spine with heterogenous enhancement of T11 and T12 suggest underlying infectious process/osteomyelitis. No obvious epidural collection - BC (+) 10/31-11/04 Diane albicans (+) BC, likely line, removed 11/09 (originally placed 11/02) Severe low back pain, due to osteo - better as far as pain control Acute kidney injury - likely due to IV contrast - ?Vanco Bilateral pleural effusions COPD exacerbation, improving Suspected PNA -CT Chest minimal effusions, mild basilar atelectasis. Patchy areas of minimal airspace infiltrate. -completed course of Levaquin -on IV steroids and Duonebs Lung nodules -Multiple small parenchymal lung nodules noted on CT of the chest, recommended follow-up, ?emboli Prior Hx labial abscess Aug 2017 Hx livedo vasculopathy Recommendations Continue daptomycin - follow CPK while on Cubicin Stop Teflaro Incentive spirometry/acapella at bedside, encourage use Getting HD Continue Diflucan Follow new C/S Monitor temps Monitor progress Explained plan to the patient Jazmín Velez MD Nov 12, 2017 10:44
[2017-11-12] MEDS: ENOXAPARIN SODIUM 30 MG/0.3 ML SYRINGE SQ SCH (11:22)
[2017-11-12 14:26] LABS: AUTOMATED NEUTROPHIL # 11.3 TH/MM3 (1.8-7.7); BASOPHIL # 0.1 TH/MM3 (0-0.2); BASOPHIL % 0.7 % (0.0-2.0); EOSINOPHIL # 0.1 TH/MM3 (0-0.4); EOSINOPHIL % 0.5 % (0.0-4.0); HEMATOCRIT 33.4 % (35.0-46.0); HEMOGLOBIN 10.8 GM/DL (11.6-15.3); LYMPH % 5.4 % (9.0-44.0); LYMPHOCYTE # 0.7 TH/MM3 (1.0-4.8); MEAN CELL VOLUME 72.9 FL (80.0-100.0); MEAN CORPUSCULAR HEMOGLOBIN 23.5 PG (27.0-34.0); MEAN CORPUSCULAR HGB CONC 32.3 % (32.0-36.0); MEAN PLATELET VOLUME 7.8 FL (7.0-11.0); MONO % 2.5 % (0.0-8.0); MONOCYTE # 0.3 TH/MM3 (0-0.9); NEUT % 90.9 % (16.0-70.0); PLATELET COUNT 265 TH/MM3 (150-450); RED BLOOD COUNT 4.59 MIL/MM3 (4.00-5.30); RED CELL DISTRIBUTION WIDTH 17.5 % (11.6-17.2); WHITE BLOOD COUNT 12.4 TH/MM3 (4.0-11.0)
--- NOTE | 2017-11-12 14:38 | HHI.PR ---
Subjective Remarks Patient reports she is feeling better overall. No new issues. Objective Vitals Vital Signs Date Time Temp Pulse Resp B/P (MAP) Pulse Ox O2 Delivery O2 Flow Rate FiO2 11/12/17 12:05 98.4 61 18 149/76 (100) 98 11/12/17 09:34 93 Nasal Cannula 2.00 11/12/17 08:08 97.9 71 18 137/74 (95) 93 11/12/17 08:00 61 11/12/17 07:00 Nasal Cannula 2.00 11/12/17 04:37 97.8 62 18 132/70 (90) 97 11/12/17 01:52 Nasal Cannula 2.00 11/12/17 00:17 98.3 63 18 155/77 (103) 93 11/11/17 23:49 64 11/11/17 21:01 96 Nasal Cannula 2.00 11/11/17 20:00 75 11/11/17 19:40 98.0 88 18 138/74 (95) 95 Automatic Cuff 11/11/17 16:00 Nasal Cannula 2.00 11/11/17 15:51 77 I/O 11/11/17 11/11/17 11/11/17 11/12/17 11/12/17 11/12/17 07:00 15:00 23:00 07:00 15:00 23:00 Intake Total 240 ml 100 ml 600 ml Output Total 750 ml 1800 ml 1000 ml Balance -510 ml -1700 ml -400 ml Intake Oral 240 ml 600 ml IV Total 100 ml Output Urine Total 750 ml 1000 ml Hemodialysis 1800 ml # Bowel Movements 0 0 Result Diagram: 11/12/17 1356 11/11/17 0438 Objective Remarks GENERAL: Obese female in no apparent distress. CARDIOVASCULAR: Normal rate and regular rhythm without murmurs, gallops, or rubs. RESPIRATORY: Good respiratory efforts. Breath sounds equal and clear to auscultation bilaterally. GASTROINTESTINAL: Abdomen soft, non-tender, non-distended. Normal active bowel sounds MUSCULOSKELETAL: Extremities without cyanosis, or edema. NEURO: Alert & Oriented x4 to person, place, time, situation. Moves all ext x4 PSYCH: Appropriate mood and affect. Procedures Echocardiogram 11/03/2017 The left ventricular systolic function is low normal with an estimated ejection fraction in the range of 50- 55%. Trace mitral valve regurgitation. There is trace tricuspid valve regurgitation. A/P Problem List: (1) COPD (chronic obstructive pulmonary disease) ICD Code: J44.9 - Chronic obstructive pulmonary disease Status: Chronic (2) Hypoxia ICD Code: R09.02 - Hypoxia Status: Acute (3) Chronic back pain ICD Code: M54.9 - Dorsalgia, unspecified; G89.29 - Other chronic pain Status: Acute (4) MRSA bacteremia ICD Code: R78.81 - Bacteremia Status: Acute Assessment and Plan 47-year-old female admitted secondary to an exacerbation of back pain suspected to be T11-T12 osteomyelitis, with persisting MRSA bacteremia. 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 Follow cultures. Acute kidney injury: Secondary to acute tubular necrosis contrast and vancomycin. Patient has developed acute tubular necrosis after receiving contrast studies and she was on IV vancomycin Appreciate nephrology following. Status post hemodialysis on 11/11. Nonoliguric. On Lasix IV per nephrology. Renal functions improving. Vas-Cath Hemodialysis as needed per nephrology Follow BMP Avoid nephrotoxins Suspected pneumonia Completed course of Levaquin. Symptoms resolved. Hypertension Continue baseline treatment Follow blood pressures Adjust treatments as needed Continue nifedipine COPD continue DuoNeb, Symbicort, Mucinex. Transition to oral prednisone Chronic back pain continue Flexeril, Valium, hydromorphone as needed. DVT prophylaxis Lovenox Problem Qualifiers (1) Chronic back pain: Qualified Codes: M54.5 - Low back pain; G89.29 - Other chronic pain Lobo Quinones MD Nov 12, 2017 14:38
[2017-11-12 14:53] LABS: ALBUMIN 2.5 GM/DL (3.4-5.0); ALKALINE PHOSPHATASE 85 U/L (45-117); ALT (GPT) 23 U/L (10-53); AST (GOT) 14 U/L (15-37); BICARBONATE 31.8 MEQ/L (21.0-32.0); BLOOD UREA NITROGEN 32 MG/DL (7-18); CALCIUM 8.9 MG/DL (8.5-10.1); CHLORIDE 97 MEQ/L (98-107); CREATININE 3.39 MG/DL (0.50-1.00); GLOMERULAR FILTRATION RATE 15 ML/MIN (>89); GLUCOSE,RANDOM 134 MG/DL (74-106); SODIUM (NA) 136 MEQ/L (136-145); TOTAL BILIRUBIN ADULT 0.3 MG/DL (0.2-1.0); TOTAL PROTEIN 6.5 GM/DL (6.4-8.2)
--- NOTE | 2017-11-12 15:49 | HHI.NPPN ---
Subjective History of Present Illness 47 year old with sepsis now with ARF, thoracic spine fluid collection Objective Data Data Vital Signs Date Time Temp Pulse Resp B/P (MAP) Pulse Ox O2 Delivery O2 Flow Rate FiO2 11/12/17 12:05 98.4 61 18 149/76 (100) 98 11/12/17 09:34 93 Nasal Cannula 2.00 11/12/17 08:08 97.9 71 18 137/74 (95) 93 11/12/17 08:00 61 11/12/17 07:00 Nasal Cannula 2.00 11/12/17 04:37 97.8 62 18 132/70 (90) 97 11/12/17 01:52 Nasal Cannula 2.00 11/12/17 00:17 98.3 63 18 155/77 (103) 93 11/11/17 23:49 64 11/11/17 21:01 96 Nasal Cannula 2.00 11/11/17 20:00 75 11/11/17 19:40 98.0 88 18 138/74 (95) 95 Automatic Cuff 11/11/17 16:00 Nasal Cannula 2.00 11/11/17 15:51 77 -: 11/12/17 1356 11/12/17 1356 Physical Exam General Appearance: Well Developed, Well Nourished Neck Neck Exam: Neck Supple Pulmonary Resp Exam: Clear Bilaterally, Breath Sounds Equal Cardiology CV Exam: Regular, Normal Sinus Rhythm Gastrointestinal/Abdomen GI Exam: Soft, Distended Extremeties Extremities Exam: Trace Edema Neurologic Neuro Exam: Alert, Awake, Oriented Assessment/Plan Problem List: (1) Acute renal failure ICD Codes: N17.9 - Acute kidney failure, unspecified Plan: Patient has developed acute tubular necrosis after receiving contrast studies and she was on IV vancomycin Patient is nonoliguric Last hemodialysis yesterday Vas-Cath Hemodialysis as needed Follow BMP (2) Osteomyelitis ICD Codes: M86.9 - Osteomyelitis, unspecified Plan: Thoracic spine she is getting daptomycin (3) Bacteremia ICD Codes: R78.81 - Bacteremia (4) MRSA bacteremia ICD Codes: R78.81 - Bacteremia Status: Acute Plan: On daptomycin and ceftaroline (5) Chronic back pain ICD Codes: M54.9 - Dorsalgia, unspecified; G89.29 - Other chronic pain Status: Acute Plan: Possible osteomyelitis (6) COPD with acute exacerbation ICD Codes: J44.1 - Chronic obstructive pulmonary disease with (acute) exacerbation Status: Acute Plan: Continue with current treatment Problem Qualifiers (1) Acute renal failure: Qualified Codes: N17.0 - Acute kidney failure with tubular necrosis (2) Chronic back pain: Qualified Codes: M54.5 - Low back pain; G89.29 - Other chronic pain David Sales MD Nov 12, 2017 15:49
[2017-11-12] MEDS: predniSONE 20 MG TAB PO SCH (22:54)
[2017-11-12] MEDS: MONTELUKAST SODIUM 10 MG TAB PO SCH (22:54)
[2017-11-12] MEDS: DAPTOMYCIN IV SCH (22:54)
[2017-11-12] MEDS: SODIUM CHLORIDE 0.9% IV SCH (22:54)
[2017-11-13] VITALS (9 sets, daily range): BP systolic 128–178; BP diastolic 63–81; PULSE 53–84; RESP 17–20; TEMP 97.2–97.9; O2SAT 92–97
[2017-11-13] MEDS: DIAZEPAM 5 MG TAB PO PRN ×2 (03:41→20:28)
[2017-11-13] MEDS: HYDROmorphone HCL 4 MG TAB PO PRN ×5 (03:41→20:28)
[2017-11-13 07:29] LABS: HEMATOCRIT 31.3 % (35.0-46.0); HEMOGLOBIN 10.1 GM/DL (11.6-15.3); MEAN CORPUSCULAR HEMOGLOBIN 23.5 PG (27.0-34.0); MEAN CORPUSCULAR HGB CONC 32.2 % (32.0-36.0); MEAN PLATELET VOLUME 7.9 FL (7.0-11.0); PLATELET COUNT 286 TH/MM3 (150-450); RED BLOOD COUNT 4.29 MIL/MM3 (4.00-5.30); WHITE BLOOD COUNT 11.8 TH/MM3 (4.0-11.0)
[2017-11-13 07:44] LABS: BICARBONATE 33.8 MEQ/L (21.0-32.0); CALCIUM 8.7 MG/DL (8.5-10.1); CREATININE 3.71 MG/DL (0.50-1.00)
[2017-11-13] MEDS: SODIUM CHLORIDE 0.9% FLUSH 10 ML FLUSH IV FLUSH SCH ×3 (07:54→20:29)
[2017-11-13] MEDS: DULoxetine HCl DR 30 MG CAP PO SCH (08:33)
[2017-11-13] MEDS: BENZONATATE 100 MG CAP PO SCH ×3 (08:33→17:33)
[2017-11-13] MEDS: guaiFENesin E.R. 600 MG TAB PO SCH ×2 (08:33→20:28)
[2017-11-13] MEDS: ASPIRIN 325 MG TAB PO SCH (08:33)
[2017-11-13] MEDS: NIFEdipine 60 MG SUSTAINED RELEASE TAB PO SCH (08:33)
[2017-11-13] MEDS: FLUCONAZOLE 200 MG TAB PO SCH (08:33)
[2017-11-13] MEDS: DOCUSATE SODIUM 100 MG CAP PO SCH ×2 (08:33→20:29)
[2017-11-13] MEDS: predniSONE 20 MG TAB PO SCH ×2 (08:33→20:28)
[2017-11-13] MEDS: CYCLOBENZAPRINE HCL 10 MG TAB PO PRN ×2 (08:33→15:57)
[2017-11-13] MEDS: FUROSEMIDE 40 MG/4 ML VIAL IV PUSH SCH ×2 (08:34→17:32)
[2017-11-13] MEDS: BUDESONIDE-FORMOTEROL 160/4.5 MCG INHALER INH SCH ×2 (08:34→20:29)
[2017-11-13] MEDS: LACTOBACILLUS ACIDOPHILUS TAB PO SCH ×3 (08:34→17:33)
[2017-11-13] MEDS: ENOXAPARIN SODIUM 30 MG/0.3 ML SYRINGE SQ SCH (10:01)
[2017-11-13] MEDS: EPOETIN ALFA 10,000 UNITS/ML VIAL IV PUSH PRN (15:16)
[2017-11-13] MEDS: GENTAMICIN SULFATE 20 MG/2 ML VIAL OTHER PRN (15:17)
--- NOTE | 2017-11-13 15:25 | HHI.PR ---
Subjective Remarks Patient seen in dialysis. She still complains of edema around her abdomen. Pain is controlled. Slight bump in creatinine today. Objective Vitals Vital Signs Date Time Temp Pulse Resp B/P (MAP) Pulse Ox O2 Delivery O2 Flow Rate FiO2 11/13/17 12:00 97.7 57 20 178/79 (112) 96 11/13/17 08:55 97 Nasal Cannula 3.00 11/13/17 08:00 97.2 59 20 154/77 (102) 96 11/13/17 04:41 14 11/13/17 04:30 97.9 58 17 146/72 (96) 95 11/13/17 04:00 53 11/13/17 00:00 59 11/13/17 00:00 97.8 68 17 150/79 (102) 94 11/12/17 21:53 Nasal Cannula 2.00 11/12/17 20:45 97 Room Air 11/12/17 20:00 60 11/12/17 20:00 98.2 61 17 131/71 (91) 96 11/12/17 16:00 98.0 71 18 129/70 (89) 95 11/12/17 16:00 68 I/O 11/12/17 11/12/17 11/12/17 11/13/17 11/13/17 11/13/17 07:00 15:00 23:00 07:00 15:00 23:00 Intake Total 600 ml 720 ml 240 ml Output Total 1000 ml 1100 ml 900 ml 1500 ml Balance -400 ml -380 ml -660 ml -1500 ml Intake Oral 600 ml 720 ml 240 ml Output Urine Total 1000 ml 1100 ml 900 ml Hemodialysis 1500 ml # Bowel Movements 0 0 Result Diagram: 11/13/17 0700 11/13/17 0700 Objective Remarks GENERAL: Obese female in no apparent distress. CARDIOVASCULAR: Normal rate and regular rhythm without murmurs, gallops, or rubs. RESPIRATORY: Good respiratory efforts. Breath sounds equal and clear to auscultation bilaterally. GASTROINTESTINAL: Abdomen obese, soft, non-tender, non-distended. Normal active bowel sounds MUSCULOSKELETAL: Extremities without cyanosis, or edema. NEURO: Alert & Oriented x4 to person, place, time, situation. Moves all ext x4 PSYCH: Appropriate mood and affect. Procedures Echocardiogram 11/03/2017 The left ventricular systolic function is low normal with an estimated ejection fraction in the range of 50- 55%. Trace mitral valve regurgitation. There is trace tricuspid valve regurgitation. A/P Problem List: (1) COPD (chronic obstructive pulmonary disease) ICD Code: J44.9 - Chronic obstructive pulmonary disease Status: Chronic (2) Hypoxia ICD Code: R09.02 - Hypoxia Status: Acute (3) Chronic back pain ICD Code: M54.9 - Dorsalgia, unspecified; G89.29 - Other chronic pain Status: Acute (4) MRSA bacteremia ICD Code: R78.81 - Bacteremia Status: Acute Assessment and Plan 47-year-old female admitted secondary to an exacerbation of back pain suspected to be T11-T12 osteomyelitis, with persisting MRSA bacteremia. 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 Follow cultures. Acute kidney injury: Secondary to acute tubular necrosis contrast and vancomycin. Patient has developed acute tubular necrosis after receiving contrast studies and she was on IV vancomycin Appreciate nephrology following. Status post hemodialysis on 11/11. Repeat dialysis today. Nonoliguric. On Lasix IV per nephrology. Renal functions improving. Vas-Cath Hemodialysis as needed per nephrology Follow BMP Avoid nephrotoxins Suspected pneumonia Completed course of Levaquin. Symptoms resolved. Hypertension Continue baseline treatment Follow blood pressures Adjust treatments as needed Continue nifedipine COPD continue DuoNeb, Symbicort, Mucinex. Transition to oral prednisone Chronic back pain continue Flexeril, Valium, hydromorphone as needed. DVT prophylaxis Lovenox Problem Qualifiers (1) Chronic back pain: Qualified Codes: M54.5 - Low back pain; G89.29 - Other chronic pain Lobo Quinones MD Nov 13, 2017 15:25
--- NOTE | 2017-11-13 15:42 | HHI.IDPN ---
Subjective Subjective Remarks Patient is a 47-year-old female, with known history of asthma, presented to the hospital complaining of severe low back pain for 3 days, with shortness of breath. She has some cough but she was afraid to cough because it worsens her back pain. She was also having fever and chills. Denies any chest pain, or any urinary complaints. She's had some constipation. The pain in her back goes like it's muscular, but it is now coming shooting pain that goes up her upper spine. 2 blood cultures done on admission are now reported as growing MRSA. Her chest x-rays normal. He has been getting worse in the back. Her WBC is elevated. She is getting Decadron and Levaquin for her pulmonary problem. 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 She had an admission back in August for labial abscess and the culture had MRSA. She was not bacteremic at that time. Infectious disease consultation has been requested to evaluate the patient. Notes reviewed. Temps ok Last (+) BC with MRSA 11/04 2 BC (+) 11/07 with Diane albicans Fup BC negative so far Line C/S negative so far Central line removed 11/09 HD today Making urine Feels less swollen in her trunk though still swollen No BM today so far C Diff negative No rash or itching CT A/P and chest, no abscess, has some nodules in lung MRI showed abnormal signal involving the dura in the lower thoracic and upper lumbar spine with heterogenous enhancement of T11 and T12 suggest underlying infectious process/osteomyelitis. No obvious epidural collection. Echo showed EF 50-55%. Wall thickness normal. Normal left ventricular. Trace MVR. Trace TVR. No vegetation KIESHA unremarkable Antibiotics Daptomycin IV Diflucan Current Medications Medications (Trade) Dose Ordered Sig/Juanpablo Route Start Time Stop Time Status Last Admin (Duoneb Neb) 1 ampule Q2HR NEB PRN NEB 10/30/17 22:45 (Mucinex Er) 600 mg BID PO 10/31/17 09:00 11/13/17 08:33 (NS Flush) 2 ml UNSCH PRN IV FLUSH 10/30/17 22:45 11/10/17 05:25 (NS Flush) 2 ml BID IV FLUSH 10/31/17 09:00 11/13/17 07:54 (Zofran Inj) 4 mg Q6H PRN IVP 10/30/17 22:45 (Tylenol) 650 mg Q6H PRN PO 10/30/17 22:45 10/31/17 07:11 (Milk Of Magnesia Liq) 30 ml Q12H PRN PO 10/30/17 22:45 (Senokot) 17.2 mg Q12H PRN PO 10/30/17 22:45 10/31/17 07:41 (Dulcolax Supp) 10 mg DAILY PRN RECTAL 10/30/17 22:45 (Lactulose Liq) 30 ml DAILY PRN PO 10/30/17 22:45 (Aspirin) 325 mg DAILY PO 10/31/17 09:00 11/13/17 08:33 (Symbicort 160-4.5 Mcg Inh) 2 puff Q12HR INH 10/31/17 09:00 11/13/17 08:34 (Cymbalta Dr) 30 mg DAILY PO 10/31/17 09:00 11/13/17 08:33 (Dilaudid) 4 mg Q4H PRN PO 10/30/17 22:45 11/13/17 08:33 (Singulair) 10 mg HS PO 10/31/17 21:00 11/12/17 22:54 (Valium) 5 mg Q8H PRN PO 10/30/17 23:00 11/13/17 03:41 (Tessalon) 100 mg TID PO 10/31/17 13:00 11/13/17 08:33 (Flexeril) 5 mg Q8H PRN PO 10/31/17 10:45 11/13/17 08:33 (Lovenox Inj) 30 mg Q24H SQ 10/31/17 11:00 11/13/17 10:01 (Pill Splitter) 1 ea UNSCH PRN OTHER 10/31/17 11:00 (NS Flush) DAILY IV FLUSH 11/03/17 09:00 11/12/17 09:50 (NS Flush) UNSCH PRN IV FLUSH 11/02/17 14:15 (Dilaudid Pf Inj) 0.5 mg Q3H PRN IV PUSH 11/04/17 16:15 (Colace) 100 mg BID PO 11/04/17 21:00 11/13/17 08:33 (Catapres) 0.1 mg Q6H PRN PO 11/04/17 13:45 11/10/17 20:55 (Procardia Xl) 60 mg DAILY PO 11/06/17 09:00 11/13/17 08:33 Daptomycin 970 mg/ Sodium Chloride 100 ml @ 200 mls/hr Q48H IV 11/08/17 21:00 11/12/17 22:54 (Lasix Inj) 60 mg BID@,18 IV PUSH 11/10/17 09:00 11/13/17 08:34 (NS Flush) UNSCH PRN IV FLUSH 11/10/17 09:45 (Heparin Inj) UNSCH PRN IV FLUSH 11/10/17 09:45 11/13/17 15:16 (Lactinex) 1 tab TID PO 11/10/17 13:00 11/13/17 08:34 Sodium Chloride 1,000 ml @ 0 mls/hr Q0M PRN OTHER 11/10/17 11:38 (Heparin Inj) 8,000 units UNSCH PRN IV FLUSH 11/10/17 11:45 Sodium Chloride 1,000 ml @ 200 mls/hr Q5H PRN IV 11/10/17 11:38 Sodium Chloride 1,000 ml @ 0 mls/hr Q0M PRN OTHER 11/10/17 11:38 (Mannitol Inj) 12.5 gm UNSCH PRN IV 11/10/17 11:45 Albumin Human 100 ml @ 60 mls/hr UNSCH PRN IV 11/10/17 11:45 (NS Flush) 5 ml UNSCH PRN IV FLUSH 11/10/17 11:45 (Heparin Inj) UNSCH PRN .XX 11/10/17 11:45 11/11/17 18:10 (Gentamicin Inj) 20 mg UNSCH PRN OTHER 11/10/17 11:45 11/13/17 15:17 (Zofran Inj) 4 mg UNSCH PRN IV PUSH 11/10/17 11:45 11/13/17 14:30 (Tylenol) 650 mg UNSCH PRN PO 11/10/17 11:45 (Benadryl) 25 mg UNSCH PRN PO 11/10/17 11:45 (Nitrostat Sl) 0.4 mg UNSCH PRN SL 11/10/17 11:45 (Catapres) 0.1 mg UNSCH PRN PO 11/10/17 11:45 (Epogen Inj) 4,000 units UNSCH PRN IV PUSH 11/10/17 11:45 11/11/17 18:10 (Gelfoam 12 Mm/7 Mm Top) 1 foam UNSCH PRN TOP 11/10/17 11:45 (Diflucan) 200 mg DAILY PO 11/12/17 09:00 11/13/17 08:33 (Deltasone) 20 mg BID PO 11/12/17 21:00 11/13/17 08:33 Lines LIJ central line [facility] Past Medical History Livedo vasculopathy, 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 COPD. GERD. Obesity. 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 Labial abscess, drained Past Surgical History Screws / plats in left elbow Left breast abscess drainage I and D labial abscess Allergies: Coded Allergies: No Known Allergies (Verified Allergy, Unknown, 11/09/17) Objective . Vital Signs Date Time Temp Pulse Resp B/P (MAP) Pulse Ox O2 Delivery O2 Flow Rate FiO2 11/13/17 12:00 97.7 57 20 178/79 (112) 96 11/13/17 08:55 97 Nasal Cannula 3.00 11/13/17 08:00 97.2 59 20 154/77 (102) 96 11/13/17 04:41 14 11/13/17 04:30 97.9 58 17 146/72 (96) 95 11/13/17 04:00 53 11/13/17 00:00 59 11/13/17 00:00 97.8 68 17 150/79 (102) 94 11/12/17 21:53 Nasal Cannula 2.00 11/12/17 20:45 97 Room Air 11/12/17 20:00 60 11/12/17 20:00 98.2 61 17 131/71 (91) 96 11/12/17 16:00 98.0 71 18 129/70 (89) 95 11/12/17 16:00 68 11/13/17 11/13/17 11/14/17 15:00 23:00 07:00 Output Total 1500 ml Balance -1500 ml Hemodialysis 1500 ml . Laboratory Tests Test 11/12/17 13:56 11/13/17 07:00 White Blood Count 12.4 TH/MM3 11.8 TH/MM3 Red Blood Count 4.59 MIL/MM3 4.29 MIL/MM3 Hemoglobin 10.8 GM/DL 10.1 GM/DL Hematocrit 33.4 % 31.3 % Mean Corpuscular Volume 72.9 FL 73.0 FL Mean Corpuscular Hemoglobin 23.5 PG 23.5 PG Mean Corpuscular Hemoglobin Concent 32.3 % 32.2 % Red Cell Distribution Width 17.5 % 18.0 % Platelet Count 265 TH/MM3 286 TH/MM3 Mean Platelet Volume 7.8 FL 7.9 FL Neutrophils (%) (Auto) 90.9 % Lymphocytes (%) (Auto) 5.4 % Monocytes (%) (Auto) 2.5 % Eosinophils (%) (Auto) 0.5 % Basophils (%) (Auto) 0.7 % Neutrophils # (Auto) 11.3 TH/MM3 Lymphocytes # (Auto) 0.7 TH/MM3 Monocytes # (Auto) 0.3 TH/MM3 Eosinophils # (Auto) 0.1 TH/MM3 Basophils # (Auto) 0.1 TH/MM3 CBC Comment DIFF FINAL Differential Comment Laboratory Tests Test 11/12/17 13:56 11/13/17 07:00 Blood Urea Nitrogen 32 MG/DL 36 MG/DL Creatinine 3.39 MG/DL 3.71 MG/DL Random Glucose 134 MG/DL 103 MG/DL Total Protein 6.5 GM/DL Albumin 2.5 GM/DL Calcium Level 8.9 MG/DL 8.7 MG/DL Alkaline Phosphatase 85 U/L Aspartate Amino Transf (AST/SGOT) 14 U/L Alanine Aminotransferase (ALT/SGPT) 23 U/L Total Bilirubin 0.3 MG/DL Sodium Level 136 MEQ/L 137 MEQ/L Potassium Level 4.1 MEQ/L 4.4 MEQ/L Chloride Level 97 MEQ/L 96 MEQ/L Carbon Dioxide Level 31.8 MEQ/L 33.8 MEQ/L Anion Gap 7 MEQ/L 7 MEQ/L Estimat Glomerular Filtration Rate 15 ML/MIN 13 ML/MIN Microbiology Date/Time Source Procedure Growth Status 11/10/17 16:45 Blood Peripheral Aerobic Blood Culture - Preliminary NO GROWTH IN 3 DAYS Resulted 11/10/17 16:45 Blood Peripheral Anaerobic Blood Culture - Preliminary NO GROWTH IN 3 DAYS Resulted Imaging Last Impressions Chest CT 11/03/17 0000 Signed Impressions: Service Date/Time: Friday, November 03, 2017 22:37 - CONCLUSION: Minimal effusions. Mild basilar atelectasis. Patchy areas of minimal airspace infiltrate. Multiple small parenchymal lung nodules which should be followed Domenic Pulido MD Abdomen/Pelvis CT 11/03/17 0000 Signed Impressions: Service Date/Time: Friday, November 03, 2017 22:37 - CONCLUSION: 1. Small bilateral pleural effusions with mild basilar atelectasis the lungs. No acute findings within the abdomen and pelvis. Moderate constipation of the right colon. Melchor Caceres MD Central Venous Line 11/02/17 0000 Signed Impressions: Service Date/Time: Thursday, November 02, 2017 14:08 - CONCLUSION: Uncomplicated line placement as above. Robert Navarro MD Thoracic Spine MRI 11/01/17 0000 Signed Impressions: Service Date/Time: Wednesday, November 01, 2017 17:21 - CONCLUSION: There is heterogeneous enhancement T11 and T12 with surrounding perivertebral edema and dural enhancement anterior and posterior to the cord. A well-defined mass is not seen. Intervertebral disc signal intensity is normal without enhancement to suggest discitis, however an osteomyelitis or other underlying infectious process should be excluded. Valente Prasad MD Lumbar Spine X-Ray 11/01/17 0000 Signed Impressions: Service Date/Time: Wednesday, November 01, 2017 18:18 - CONCLUSION: No acute disease. Valenet Prasad MD Lumbar Spine MRI 11/01/17 0000 Signed Impressions: Service Date/Time: Wednesday, November 01, 2017 17:21 - CONCLUSION: Abnormal signal involving the dura in the lower thoracic and upper lumbar spine with heterogeneous enhancement of T11 and T12 suggest underlying infectious process/osteomyelitis. No obvious epidural collections at this time.. Valente Prasad MD Chest X-Ray 10/30/172031 Signed Impressions: Service Date/Time: Monday, October 30, 2017 21:48 - CONCLUSION: No acute disease. Domenic Davis MD Physical Exam GENERAL: NAD. Awake and alert. SKIN: Warm and dry. No generalized rash, no ecchymoses and no evidence of embolic lesions. Has brownish pigmentation on both lower legs HEAD: Atraumatic. Normocephalic. EYES: [place] conjunctiva. No petechia or hemorrhage. Extraocular movements full and intact. No scleral icterus. No injection or drainage. EARS, NOSE AND THROAT: Nose without bleeding or purulent nasal discharge. No sinus tenderness. Mucous membranes pink and moist. No oral lesions noted. No oral thrush. NECK: Trachea midline. RIJ and LIJ line ok CARDIAC: Regular rate and rhythm. No murmurs, rubs or gallops heard RESPIRATORY: Diminished breath sounds but clear to auscultation. ABDOMEN: Soft, non-tender, nondistended. Bowel sounds present and normoactive. EXTREMITIES: No clubbing, cyanosis, or edema. No calf tenderness NEUROLOGICAL: Awake and alert. Cranial nerves grossly intact. Motor grossly within normal limits. Speech is normal. PSYCHIATRIC: Appropriate mood and affect. Normal insight and judgment LINE: No evidence of infection. Assessment & Plan Remarks MRSA septicemia, source, likely secondary to T11-T12 osteo - KIESHA negative - -baseline ESR 38, CRP 11 - MRI showed abnormal signal involving the dura in the lower thoracic and upper lumbar spine with heterogenous enhancement of T11 and T12 suggest underlying infectious process/osteomyelitis. No obvious epidural collection - BC (+) 10/31-11/04 Diane albicans (+) BC, likely line, removed 11/09 (originally placed 11/02) Severe low back pain, due to osteo - better as far as pain control Acute kidney injury - likely due to IV contrast - ?Vanco Bilateral pleural effusions COPD exacerbation, improving Suspected PNA -CT Chest minimal effusions, mild basilar atelectasis. Patchy areas of minimal airspace infiltrate. -completed course of Levaquin -on IV steroids and Duonebs Lung nodules -Multiple small parenchymal lung nodules noted on CT of the chest, recommended follow-up, ?emboli Prior Hx labial abscess Aug 2017 Hx livedo vasculopathy Recommendations Follow C/S Continue daptomycin Continue Diflucan Getting HD Monitor temps Monitor progress Possibly do another MRI back next week Jazmín Velez MD Nov 13, 2017 15:42
--- NOTE | 2017-11-13 16:43 | HHI.NPPN ---
Subjective History of Present Illness 47 year old with sepsis now with ARF, thoracic spine fluid collection Objective Data Data 11/13/17 11/14/17 19:00 07:00 Output Total 1500 ml Balance -1500 ml Hemodialysis 1500 ml Vital Signs Date Time Temp Pulse Resp B/P (MAP) Pulse Ox O2 Delivery O2 Flow Rate FiO2 11/13/17 12:00 97.7 57 20 178/79 (112) 96 11/13/17 08:55 97 Nasal Cannula 3.00 11/13/17 08:00 97.2 59 20 154/77 (102) 96 11/13/17 04:41 14 11/13/17 04:30 97.9 58 17 146/72 (96) 95 11/13/17 04:00 53 11/13/17 00:00 59 11/13/17 00:00 97.8 68 17 150/79 (102) 94 11/12/17 21:53 Nasal Cannula 2.00 11/12/17 20:45 97 Room Air 11/12/17 20:00 60 11/12/17 20:00 98.2 61 17 131/71 (91) 96 -: 11/13/17 0700 11/13/17 0700 Physical Exam General Appearance: Well Developed, Well Nourished Neck Neck Exam: Neck Supple Pulmonary Resp Exam: Clear Bilaterally, Breath Sounds Equal Cardiology CV Exam: Regular, Normal Sinus Rhythm Gastrointestinal/Abdomen GI Exam: Soft, Distended Extremeties Extremities Exam: Trace Edema Neurologic Neuro Exam: Alert, Awake, Oriented Assessment/Plan Problem List: (1) Acute renal failure ICD Codes: N17.9 - Acute kidney failure, unspecified Plan: Patient has developed acute tubular necrosis after receiving contrast studies and she was on IV vancomycin Patient is nonoliguric Last hemodialysis today ultrafiltration 1.5 L Patient has some nausea Vas-Cath Hemodialysis as needed Follow BMP (2) Osteomyelitis ICD Codes: M86.9 - Osteomyelitis, unspecified Plan: Thoracic spine she is getting daptomycin (3) Bacteremia ICD Codes: R78.81 - Bacteremia (4) MRSA bacteremia ICD Codes: R78.81 - Bacteremia Status: Acute Plan: On daptomycin and ceftaroline (5) Chronic back pain ICD Codes: M54.9 - Dorsalgia, unspecified; G89.29 - Other chronic pain Status: Acute Plan: Possible osteomyelitis (6) COPD with acute exacerbation ICD Codes: J44.1 - Chronic obstructive pulmonary disease with (acute) exacerbation Status: Acute Plan: Continue with current treatment Problem Qualifiers (1) Acute renal failure: Qualified Codes: N17.0 - Acute kidney failure with tubular necrosis (2) Chronic back pain: Qualified Codes: M54.5 - Low back pain; G89.29 - Other chronic pain David Sales MD Nov 13, 2017 16:43
[2017-11-13] MEDS: MONTELUKAST SODIUM 10 MG TAB PO SCH (20:28)
--- NOTE | 2017-11-13 23:05 | RADRPT ---
EXAM DATE/TIME: 11/09/2017 00:00 [place] COMPARISON: No previous studies available for comparison. INDICATIONS : Patient with a history of sepsis, possible infected central line. MEDICAL HISTORY : COPD Anxiety Depression Chronic back pain SURGICAL HISTORY : Elbow surgery ENCOUNTER: Subsequent ACUITY: 1 week PAIN SCORE: 3/10 LOCATION: Shortness of breath IMAGE SERIES: 0 ACCESS: Right internal jugular vein DEVICE(S): 1.) 7 Malag[place] triple lumen 16 cm PROCEDURE : 1. Temporary central venous catheter removal. The prescribed catheter was removed intact and hemostasis was achieved with direct pressure. The sit e was dressed appropriately. The patient tolerated the procedure well. CONCLUSION: Uncomplicated catheter removal. Rip Camarillo MD on November 13, 2017 at 23:04 Board Certified Radiologist. This report was verified electronically.
[2017-11-14] VITALS (9 sets, daily range): BP systolic 125–172; BP diastolic 69–89; PULSE 60–84; RESP 18–20; TEMP 97.6–98.3; O2SAT 91–97
[2017-11-14] MEDS: HYDROmorphone HCL 4 MG TAB PO PRN ×6 (00:43→20:55)
[2017-11-14] MEDS: CYCLOBENZAPRINE HCL 10 MG TAB PO PRN ×3 (00:44→16:57)
[2017-11-14] MEDS: DIAZEPAM 5 MG TAB PO PRN ×3 (04:36→20:55)
[2017-11-14 04:55] LABS: HEMATOCRIT 33.2 % (35.0-46.0); HEMOGLOBIN 10.5 GM/DL (11.6-15.3); MEAN CELL VOLUME 73.3 FL (80.0-100.0); MEAN CORPUSCULAR HEMOGLOBIN 23.3 PG (27.0-34.0); MEAN CORPUSCULAR HGB CONC 31.8 % (32.0-36.0); MEAN PLATELET VOLUME 7.7 FL (7.0-11.0); PLATELET COUNT 322 TH/MM3 (150-450); RED BLOOD COUNT 4.52 MIL/MM3 (4.00-5.30); RED CELL DISTRIBUTION WIDTH 17.5 % (11.6-17.2); WHITE BLOOD COUNT 14.3 TH/MM3 (4.0-11.0)
[2017-11-14 05:13] LABS: BICARBONATE 34.2 MEQ/L (21.0-32.0); CALCIUM 8.6 MG/DL (8.5-10.1); CREATININE 3.04 MG/DL (0.50-1.00)
[2017-11-14] MEDS: SODIUM CHLORIDE 0.9% FLUSH 10 ML FLUSH IV FLUSH SCH ×3 (08:53→20:55)
[2017-11-14] MEDS: BUDESONIDE-FORMOTEROL 160/4.5 MCG INHALER INH SCH ×2 (08:53→20:54)
[2017-11-14] MEDS: guaiFENesin E.R. 600 MG TAB PO SCH ×2 (08:54→20:55)
[2017-11-14] MEDS: NIFEdipine 60 MG SUSTAINED RELEASE TAB PO SCH (08:54)
[2017-11-14] MEDS: ASPIRIN 325 MG TAB PO SCH (08:54)
[2017-11-14] MEDS: FUROSEMIDE 40 MG/4 ML VIAL IV PUSH SCH ×2 (08:54→17:11)
[2017-11-14] MEDS: BENZONATATE 100 MG CAP PO SCH ×3 (08:55→17:12)
[2017-11-14] MEDS: DOCUSATE SODIUM 100 MG CAP PO SCH ×2 (08:55→20:55)
[2017-11-14] MEDS: DULoxetine HCl DR 30 MG CAP PO SCH (08:55)
[2017-11-14] MEDS: predniSONE 20 MG TAB PO SCH ×2 (08:55→20:55)
[2017-11-14] MEDS: LACTOBACILLUS ACIDOPHILUS TAB PO SCH ×3 (08:55→17:11)
[2017-11-14] MEDS: FLUCONAZOLE 200 MG TAB PO SCH (08:55)
[2017-11-14] MEDS: ENOXAPARIN SODIUM 30 MG/0.3 ML SYRINGE SQ SCH (12:47)
--- NOTE | 2017-11-14 15:59 | HHI.PR ---
Subjective Remarks Patient reports she is feeling okay today. No new complaints. Objective Vitals Vital Signs Date Time Temp Pulse Resp B/P (MAP) Pulse Ox O2 Delivery O2 Flow Rate FiO2 11/14/17 12:06 98.3 63 20 172/89 (116) 92 11/14/17 12:00 Room Air 11/14/17 12:00 65 11/14/17 09:00 Nasal Cannula 2.00 11/14/17 08:06 97.9 60 20 142/70 (94) 97 11/14/17 08:00 66 11/14/17 05:36 14 11/14/17 04:00 97.6 73 18 125/69 (87) 91 11/14/17 04:00 80 11/14/17 00:00 97.9 68 18 138/89 (105) 92 11/14/17 00:00 84 11/13/17 20:45 97 Room Air 11/13/17 20:00 97.8 63 18 128/63 (84) 92 11/13/17 20:00 57 11/13/17 16:20 84 11/13/17 16:00 97.6 76 20 146/81 (102) 95 I/O 11/13/17 11/13/17 11/13/17 11/14/17 11/14/17 11/14/17 07:00 15:00 23:00 07:00 15:00 23:00 Intake Total 240 ml 960 ml Output Total 900 ml 1500 ml Balance -660 ml -540 ml Intake Oral 240 ml 960 ml Output Urine Total 900 ml Hemodialysis 1500 ml # Voids 5 4 Result Diagram: 11/14/17 0445 11/14/17 0445 Objective Remarks GENERAL: Obese female in no apparent distress. CARDIOVASCULAR: Normal rate and regular rhythm without murmurs, gallops, or rubs. RESPIRATORY: Good respiratory efforts. Breath sounds equal and clear to auscultation bilaterally. GASTROINTESTINAL: Abdomen obese, soft, non-tender, non-distended. Normal active bowel sounds MUSCULOSKELETAL: Extremities without cyanosis, or edema. NEURO: Alert & Oriented x4 to person, place, time, situation. Moves all ext x4 PSYCH: Appropriate mood and affect. Procedures Echocardiogram 11/03/2017 The left ventricular systolic function is low normal with an estimated ejection fraction in the range of 50- 55%. Trace mitral valve regurgitation. There is trace tricuspid valve regurgitation. A/P Problem List: (1) COPD (chronic obstructive pulmonary disease) ICD Code: J44.9 - Chronic obstructive pulmonary disease Status: Chronic (2) Hypoxia ICD Code: R09.02 - Hypoxia Status: Acute (3) Chronic back pain ICD Code: M54.9 - Dorsalgia, unspecified; G89.29 - Other chronic pain Status: Acute (4) MRSA bacteremia ICD Code: R78.81 - Bacteremia Status: Acute Assessment and Plan 47-year-old female admitted secondary to an exacerbation of back pain suspected to be T11-T12 osteomyelitis, with persisting MRSA bacteremia. 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 To consider repeat MRI of the back next week. Continue daptomycin and Diflucan per infectious disease. Follow cultures. Acute kidney injury: Secondary to acute tubular necrosis contrast and vancomycin. Patient has developed acute tubular necrosis after receiving contrast studies and she was on IV vancomycin Appreciate nephrology following. Status post hemodialysis on 11/11. 11/13. Nonoliguric. On Lasix IV per nephrology. Renal functions improving. Vas-Cath Hemodialysis as needed per nephrology Follow BMP Avoid nephrotoxins Suspected pneumonia Completed course of Levaquin. Symptoms resolved. Hypertension Continue baseline treatment Follow blood pressures Adjust treatments as needed Continue nifedipine COPD continue DuoNeb, Symbicort, Mucinex. Transition to oral prednisone Chronic back pain continue Flexeril, Valium, hydromorphone as needed. DVT prophylaxis Lovenox Problem Qualifiers (1) Chronic back pain: Qualified Codes: M54.5 - Low back pain; G89.29 - Other chronic pain Lobo Quinones MD Nov 14, 2017 15:59
[2017-11-14] MEDS: MONTELUKAST SODIUM 10 MG TAB PO SCH (20:55)
[2017-11-14] MEDS: DAPTOMYCIN IV SCH (20:56)
[2017-11-14] MEDS: SODIUM CHLORIDE 0.9% IV SCH (20:56)
[2017-11-15] VITALS (11 sets, daily range): BP systolic 143–160; BP diastolic 74–96; PULSE 58–79; RESP 17–20; TEMP 97.6–98.8; O2SAT 93–96
[2017-11-15] MEDS: CYCLOBENZAPRINE HCL 10 MG TAB PO PRN ×3 (00:54→18:02)
[2017-11-15] MEDS: HYDROmorphone HCL 4 MG TAB PO PRN ×6 (00:55→22:03)
[2017-11-15] MEDS: DIAZEPAM 5 MG TAB PO PRN ×3 (05:40→22:02)
[2017-11-15 06:00] LABS: HEMATOCRIT 32.7 % (35.0-46.0); HEMOGLOBIN 10.6 GM/DL (11.6-15.3); MEAN CELL VOLUME 73.3 FL (80.0-100.0); MEAN CORPUSCULAR HEMOGLOBIN 23.7 PG (27.0-34.0); MEAN CORPUSCULAR HGB CONC 32.3 % (32.0-36.0); MEAN PLATELET VOLUME 7.5 FL (7.0-11.0); PLATELET COUNT 330 TH/MM3 (150-450); RED BLOOD COUNT 4.46 MIL/MM3 (4.00-5.30); WHITE BLOOD COUNT 13.1 TH/MM3 (4.0-11.0)
[2017-11-15 06:19] LABS: BICARBONATE 34.2 MEQ/L (21.0-32.0); CALCIUM 9.1 MG/DL (8.5-10.1); CREATININE 3.44 MG/DL (0.50-1.00)
--- NOTE | 2017-11-15 09:07 | HHI.NPPN ---
Subjective History of Present Illness 47 year old with sepsis now with ARF, thoracic spine fluid collection Interval History Last HD was on 11/13. She appears to be non oliguric. Some increase in creatinine today. Continues to complain of swelling. Objective Data Data Vital Signs Date Time Temp Pulse Resp B/P (MAP) Pulse Ox O2 Delivery O2 Flow Rate FiO2 11/15/17 04:10 62 11/15/17 04:00 98.8 70 18 151/82 (105) 96 11/15/17 04:00 Nasal Cannula 2.00 11/15/17 04:00 Nasal Cannula 2.00 11/15/17 00:11 74 11/15/17 00:00 97.8 77 20 146/76 (99) 95 11/15/17 00:00 Nasal Cannula 2.00 11/14/17 20:03 71 11/14/17 20:00 97.8 79 19 133/81 (98) 95 11/14/17 20:00 Nasal Cannula 2.00 11/14/17 16:54 98.0 69 20 149/82 (104) 95 11/14/17 12:06 98.3 63 20 172/89 (116) 92 11/14/17 12:00 Room Air 11/14/17 12:00 65 -: 11/15/17 0545 11/15/17 0545 Physical Exam General Appearance: Well Developed, Well Nourished Neck Neck Exam: Neck Supple Pulmonary Resp Exam: Clear Bilaterally, Breath Sounds Equal Cardiology CV Exam: Regular, Normal Sinus Rhythm Gastrointestinal/Abdomen GI Exam: Soft, Distended Extremeties Extremities Exam: Trace Edema Neurologic Neuro Exam: Alert, Awake, Oriented Assessment/Plan Problem List: (1) Acute renal failure ICD Codes: N17.9 - Acute kidney failure, unspecified Plan: Patient has developed acute tubular necrosis after receiving contrast studies and she was on IV vancomycin Patient is nonoliguric Last hemodialysis was on 11/13. Hemodialysis as needed Follow BMP (2) Osteomyelitis ICD Codes: M86.9 - Osteomyelitis, unspecified Plan: Thoracic spine she is getting daptomycin (3) Bacteremia ICD Codes: R78.81 - Bacteremia (4) MRSA bacteremia ICD Codes: R78.81 - Bacteremia Status: Acute Plan: On daptomycin and ceftaroline (5) Chronic back pain ICD Codes: M54.9 - Dorsalgia, unspecified; G89.29 - Other chronic pain Status: Acute Plan: Possible osteomyelitis (6) COPD with acute exacerbation ICD Codes: J44.1 - Chronic obstructive pulmonary disease with (acute) exacerbation Status: Acute Plan: Continue with current treatment Problem Qualifiers (1) Acute renal failure: Qualified Codes: N17.0 - Acute kidney failure with tubular necrosis (2) Chronic back pain: Qualified Codes: M54.5 - Low back pain; G89.29 - Other chronic pain Quirino Perkins MD Nov 15, 2017 09:07
[2017-11-15] MEDS: BENZONATATE 100 MG CAP PO SCH ×3 (09:20→18:03)
[2017-11-15] MEDS: FLUCONAZOLE 200 MG TAB PO SCH (09:20)
[2017-11-15] MEDS: guaiFENesin E.R. 600 MG TAB PO SCH ×2 (09:20→22:02)
[2017-11-15] MEDS: DULoxetine HCl DR 30 MG CAP PO SCH (09:20)
[2017-11-15] MEDS: predniSONE 20 MG TAB PO SCH ×2 (09:20→22:02)
[2017-11-15] MEDS: LACTOBACILLUS ACIDOPHILUS TAB PO SCH ×3 (09:20→18:02)
[2017-11-15] MEDS: DOCUSATE SODIUM 100 MG CAP PO SCH ×2 (09:20→22:02)
[2017-11-15] MEDS: NIFEdipine 60 MG SUSTAINED RELEASE TAB PO SCH (09:20)
[2017-11-15] MEDS: ASPIRIN 325 MG TAB PO SCH (09:20)
[2017-11-15] MEDS: FUROSEMIDE 40 MG/4 ML VIAL IV PUSH SCH ×2 (09:21→18:02)
[2017-11-15] MEDS: SODIUM CHLORIDE 0.9% FLUSH 10 ML FLUSH IV FLUSH SCH ×3 (09:21→22:03)
[2017-11-15] MEDS: BUDESONIDE-FORMOTEROL 160/4.5 MCG INHALER INH SCH ×2 (09:22→22:02)
[2017-11-15] MEDS: ENOXAPARIN SODIUM 30 MG/0.3 ML SYRINGE SQ SCH (10:50)
--- NOTE | 2017-11-15 13:20 | HHI.PR ---
Subjective Remarks Patient reports she is feeling okay. Still reports some abdominal swelling. Objective Vitals Vital Signs Date Time Temp Pulse Resp B/P (MAP) Pulse Ox O2 Delivery O2 Flow Rate FiO2 11/15/17 09:51 16 11/15/17 08:00 97.6 58 18 160/74 (102) 96 11/15/17 04:10 62 11/15/17 04:00 98.8 70 18 151/82 (105) 96 11/15/17 04:00 Nasal Cannula 2.00 11/15/17 04:00 Nasal Cannula 2.00 11/15/17 00:11 74 11/15/17 00:00 97.8 77 20 146/76 (99) 95 11/15/17 00:00 Nasal Cannula 2.00 11/14/17 20:03 71 11/14/17 20:00 97.8 79 19 133/81 (98) 95 11/14/17 20:00 Nasal Cannula 2.00 11/14/17 16:54 98.0 69 20 149/82 (104) 95 I/O 11/14/17 11/14/17 11/14/17 11/15/17 11/15/17 11/15/17 07:00 15:00 23:00 07:00 15:00 23:00 Intake Total 720 ml 0 ml Output Total 1500 ml Balance 720 ml -1500 ml Intake Oral 720 ml 0 ml Output Urine Total 1500 ml # Voids 4 4 # Bowel Movements 0 Result Diagram: 11/15/17 0545 11/15/17 0545 Objective Remarks GENERAL: Obese female in no apparent distress. CARDIOVASCULAR: Normal rate and regular rhythm without murmurs, gallops, or rubs. RESPIRATORY: Good respiratory efforts. Breath sounds equal and clear to auscultation bilaterally. GASTROINTESTINAL: Abdomen obese, soft, non-tender, non-distended. Normal active bowel sounds MUSCULOSKELETAL: Extremities without cyanosis, or edema. NEURO: Alert & Oriented x4 to person, place, time, situation. Moves all ext x4 PSYCH: Appropriate mood and affect. Procedures Echocardiogram 11/03/2017 The left ventricular systolic function is low normal with an estimated ejection fraction in the range of 50- 55%. Trace mitral valve regurgitation. There is trace tricuspid valve regurgitation. A/P Problem List: (1) COPD (chronic obstructive pulmonary disease) ICD Code: J44.9 - Chronic obstructive pulmonary disease Status: Chronic (2) Hypoxia ICD Code: R09.02 - Hypoxia Status: Acute (3) Chronic back pain ICD Code: M54.9 - Dorsalgia, unspecified; G89.29 - Other chronic pain Status: Acute (4) MRSA bacteremia ICD Code: R78.81 - Bacteremia Status: Acute Assessment and Plan 47-year-old female admitted secondary to an exacerbation of back pain suspected to be T11-T12 osteomyelitis, with persisting MRSA bacteremia. 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 To consider repeat MRI of the back next week. Continue daptomycin and Diflucan per infectious disease. Follow cultures. Acute kidney injury: Secondary to acute tubular necrosis contrast and vancomycin. Patient has developed acute tubular necrosis after receiving contrast studies and she was on IV vancomycin Appreciate nephrology following. Status post hemodialysis on 11/11. 11/13. Nonoliguric. On Lasix IV per nephrology. Renal functions stable. Slight bump today. Vas-Cath Hemodialysis as needed per nephrology Follow BMP Avoid nephrotoxins Suspected pneumonia Completed course of Levaquin. Symptoms resolved. Hypertension Continue baseline treatment Follow blood pressures Adjust treatments as needed Continue nifedipine COPD continue DuoNeb, Symbicort, Mucinex. Transition to oral prednisone Chronic back pain continue Flexeril, Valium, hydromorphone as needed. DVT prophylaxis Lovenox Problem Qualifiers (1) Chronic back pain: Qualified Codes: M54.5 - Low back pain; G89.29 - Other chronic pain Lobo Quinones MD Nov 15, 2017 13:20
[2017-11-15] MEDS: MONTELUKAST SODIUM 10 MG TAB PO SCH (22:02)
[2017-11-16] VITALS (13 sets, daily range): BP systolic 126–148; BP diastolic 68–84; PULSE 58–71; RESP 16–20; TEMP 97.6–98.3; O2SAT 94–97
[2017-11-16] MEDS: CYCLOBENZAPRINE HCL 10 MG TAB PO PRN ×3 (01:58→18:01)
[2017-11-16] MEDS: HYDROmorphone HCL 4 MG TAB PO PRN ×6 (01:59→21:53)
[2017-11-16] MEDS: DIAZEPAM 5 MG TAB PO PRN ×3 (06:08→21:53)
[2017-11-16 06:48] LABS: ALBUMIN 2.7 GM/DL (3.4-5.0); BICARBONATE 35.3 MEQ/L (21.0-32.0); CREATININE 3.56 MG/DL (0.50-1.00)
[2017-11-16 06:50] LABS: PHOSPHORUS 4.9 MG/DL (2.5-4.9)
[2017-11-16] MEDS: DOCUSATE SODIUM 100 MG CAP PO SCH ×2 (08:17→21:53)
[2017-11-16] MEDS: guaiFENesin E.R. 600 MG TAB PO SCH ×2 (08:17→21:53)
[2017-11-16] MEDS: BENZONATATE 100 MG CAP PO SCH ×3 (08:17→18:01)
[2017-11-16] MEDS: DULoxetine HCl DR 30 MG CAP PO SCH (08:17)
[2017-11-16] MEDS: FLUCONAZOLE 200 MG TAB PO SCH (08:17)
[2017-11-16] MEDS: LACTOBACILLUS ACIDOPHILUS TAB PO SCH ×3 (08:17→18:01)
[2017-11-16] MEDS: predniSONE 20 MG TAB PO SCH (08:17)
[2017-11-16] MEDS: FUROSEMIDE 40 MG/4 ML VIAL IV PUSH SCH (08:18)
[2017-11-16] MEDS: ASPIRIN 325 MG TAB PO SCH (08:18)
[2017-11-16] MEDS: SODIUM CHLORIDE 0.9% FLUSH 10 ML FLUSH IV FLUSH SCH ×3 (08:19→21:00)
[2017-11-16] MEDS: BUDESONIDE-FORMOTEROL 160/4.5 MCG INHALER INH SCH ×2 (08:23→21:00)
[2017-11-16] MEDS: ENOXAPARIN SODIUM 30 MG/0.3 ML SYRINGE SQ SCH (10:06)
--- NOTE | 2017-11-16 13:58 | HHI.NPPN ---
Subjective History of Present Illness 47 year old with sepsis now with ARF, thoracic spine fluid collection Objective Data Data Vital Signs Date Time Temp Pulse Resp B/P (MAP) Pulse Ox O2 Delivery O2 Flow Rate FiO2 11/16/17 11:50 97.6 64 18 130/80 (97) 97 11/16/17 08:25 97 Nasal Cannula 2.00 11/16/17 07:55 Nasal Cannula 2.00 11/16/17 07:55 97.8 65 20 148/81 (103) 96 11/16/17 07:18 61 11/16/17 04:01 65 11/16/17 04:00 98.3 66 17 126/71 (89) 94 11/16/17 04:00 Room Air 11/16/17 00:00 97.8 71 16 133/68 (89) 96 11/16/17 00:00 Room Air 11/15/17 23:52 78 11/15/17 20:00 Room Air 11/15/17 20:00 97.8 62 17 151/76 (101) 95 11/15/17 19:38 72 11/15/17 16:00 67 11/15/17 16:00 97.7 79 18 143/91 (108) 93 -: 11/15/17 0545 11/16/17 0610 Physical Exam General Appearance: Well Developed, Well Nourished Neck Neck Exam: Neck Supple Pulmonary Resp Exam: Clear Bilaterally, Breath Sounds Equal Cardiology CV Exam: Regular, Normal Sinus Rhythm Gastrointestinal/Abdomen GI Exam: Soft, Distended Extremeties Extremities Exam: Trace Edema Neurologic Neuro Exam: Alert, Awake, Oriented Assessment/Plan Problem List: (1) Acute renal failure ICD Codes: N17.9 - Acute kidney failure, unspecified Plan: Patient has developed acute tubular necrosis after receiving contrast studies and she was on IV vancomycin Patient is nonoliguric Last hemodialysis was on 11/13. Hemodialysis as needed Follow BMP UOP increased check BMP in am Hold off today (2) Osteomyelitis ICD Codes: M86.9 - Osteomyelitis, unspecified Plan: Thoracic spine she is getting daptomycin (3) Bacteremia ICD Codes: R78.81 - Bacteremia (4) MRSA bacteremia ICD Codes: R78.81 - Bacteremia Status: Acute Plan: On daptomycin and ceftaroline (5) Chronic back pain ICD Codes: M54.9 - Dorsalgia, unspecified; G89.29 - Other chronic pain Status: Acute Plan: Possible osteomyelitis (6) COPD with acute exacerbation ICD Codes: J44.1 - Chronic obstructive pulmonary disease with (acute) exacerbation Status: Acute Plan: Continue with current treatment Problem Qualifiers (1) Acute renal failure: Qualified Codes: N17.0 - Acute kidney failure with tubular necrosis (2) Chronic back pain: Qualified Codes: M54.5 - Low back pain; G89.29 - Other chronic pain David Sales MD Nov 16, 2017 13:57
[2017-11-16] MEDS: NIFEdipine 60 MG SUSTAINED RELEASE TAB PO SCH (14:07)
--- NOTE | 2017-11-16 16:57 | HHI.PR ---
Subjective Remarks Patient still reporting abdominal bloating and inquiring about whether or not she will need more dialysis. She does not feel like Lasix is working. States her urination pattern have not increased. Objective Vitals Vital Signs Date Time Temp Pulse Resp B/P (MAP) Pulse Ox O2 Delivery O2 Flow Rate FiO2 11/16/17 16:26 97 Nasal Cannula 2.00 11/16/17 16:15 97.8 58 18 128/84 (99) 95 11/16/17 12:03 66 11/16/17 11:50 97.6 64 18 130/80 (97) 97 11/16/17 08:25 97 Nasal Cannula 2.00 11/16/17 07:55 Nasal Cannula 2.00 11/16/17 07:55 97.8 65 20 148/81 (103) 96 11/16/17 07:18 61 11/16/17 04:01 65 11/16/17 04:00 98.3 66 17 126/71 (89) 94 11/16/17 04:00 Room Air 11/16/17 00:00 97.8 71 16 133/68 (89) 96 11/16/17 00:00 Room Air 11/15/17 23:52 78 11/15/17 20:00 Room Air 11/15/17 20:00 97.8 62 17 151/76 (101) 95 11/15/17 19:38 72 I/O 11/15/17 11/15/17 11/15/17 11/16/17 11/16/17 11/16/17 07:00 15:00 23:00 07:00 15:00 23:00 Intake Total 0 ml 720 ml 420 ml Output Total 1500 ml 1600 ml 1200 ml Balance -1500 ml -880 ml -780 ml Intake Oral 0 ml 720 ml 420 ml Output Urine Total 1500 ml 1600 ml 1200 ml # Bowel Movements 0 1 Result Diagram: 11/15/17 0545 11/16/17 0610 Objective Remarks GENERAL: Obese female in no apparent distress. CARDIOVASCULAR: Normal rate and regular rhythm without murmurs, gallops, or rubs. RESPIRATORY: Good respiratory efforts. Breath sounds equal and clear to auscultation bilaterally. GASTROINTESTINAL: Abdomen obese, soft, non-tender, non-distended. Normal active bowel sounds MUSCULOSKELETAL: Extremities without cyanosis, or edema. NEURO: Alert & Oriented x4 to person, place, time, situation. Moves all ext x4 PSYCH: Appropriate mood and affect. Procedures Echocardiogram 11/03/2017 The left ventricular systolic function is low normal with an estimated ejection fraction in the range of 50- 55%. Trace mitral valve regurgitation. There is trace tricuspid valve regurgitation. A/P Problem List: (1) COPD (chronic obstructive pulmonary disease) ICD Code: J44.9 - Chronic obstructive pulmonary disease Status: Chronic (2) Hypoxia ICD Code: R09.02 - Hypoxia Status: Acute (3) Chronic back pain ICD Code: M54.9 - Dorsalgia, unspecified; G89.29 - Other chronic pain Status: Acute (4) MRSA bacteremia ICD Code: R78.81 - Bacteremia Status: Acute Assessment and Plan 47-year-old female admitted secondary to an exacerbation of back pain suspected to be T11-T12 osteomyelitis, with persisting MRSA bacteremia. 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 To consider repeat MRI of the back next week. Continue daptomycin and Diflucan per infectious disease. Follow cultures. Acute kidney injury: Secondary to acute tubular necrosis contrast and vancomycin. Patient has developed acute tubular necrosis after receiving contrast studies and she was on IV vancomycin Appreciate nephrology following. Status post hemodialysis on 11/11. 11/13. Nonoliguric. On Lasix IV per nephrology. Negative fluid balance. Renal functions with slight bump today. Vas-Cath Hemodialysis as needed per nephrology Follow BMP Avoid nephrotoxins Suspected pneumonia Completed course of Levaquin. Symptoms resolved. Hypertension Continue baseline treatment Follow blood pressures Adjust treatments as needed Continue nifedipine COPD continue DuoNeb, Symbicort, Mucinex. Continue to wean oral prednisone Chronic back pain continue Flexeril, Valium, hydromorphone as needed. DVT prophylaxis Lovenox Problem Qualifiers (1) Chronic back pain: Qualified Codes: M54.5 - Low back pain; G89.29 - Other chronic pain Lobo Quinones MD Nov 16, 2017 16:57
[2017-11-16] MEDS: DAPTOMYCIN IV SCH (21:52)
[2017-11-16] MEDS: MONTELUKAST SODIUM 10 MG TAB PO SCH (21:52)
[2017-11-16] MEDS: SODIUM CHLORIDE 0.9% IV SCH (21:52)
[2017-11-16] MEDS: predniSONE 10 MG TAB PO SCH (21:53)
[2017-11-17] VITALS (12 sets, daily range): BP systolic 122–157; BP diastolic 61–100; PULSE 64–76; RESP 17–20; TEMP 97.8–98.3; O2SAT 92–96
[2017-11-17] MEDS: HYDROmorphone HCL 4 MG TAB PO PRN ×6 (01:54→22:34)
[2017-11-17] MEDS: CYCLOBENZAPRINE HCL 10 MG TAB PO PRN ×3 (01:54→18:52)
[2017-11-17] MEDS: DIAZEPAM 5 MG TAB PO PRN ×3 (06:01→22:34)
[2017-11-17 07:01] LABS: HEMOGLOBIN 10.3 GM/DL (11.6-15.3); MEAN CELL VOLUME 74.1 FL (80.0-100.0); MEAN CORPUSCULAR HEMOGLOBIN 23.8 PG (27.0-34.0); MEAN CORPUSCULAR HGB CONC 32.1 % (32.0-36.0); MEAN PLATELET VOLUME 7.5 FL (7.0-11.0); PLATELET COUNT 270 TH/MM3 (150-450); RED BLOOD COUNT 4.32 MIL/MM3 (4.00-5.30); RED CELL DISTRIBUTION WIDTH 17.9 % (11.6-17.2); WHITE BLOOD COUNT 12.1 TH/MM3 (4.0-11.0)
[2017-11-17 07:26] LABS: BICARBONATE 35.1 MEQ/L (21.0-32.0); CALCIUM 8.6 MG/DL (8.5-10.1); CREATININE 3.63 MG/DL (0.50-1.00)
[2017-11-17] MEDS: SODIUM CHLORIDE 0.9% FLUSH 10 ML FLUSH IV FLUSH SCH ×3 (08:33→21:00)
[2017-11-17] MEDS: DOCUSATE SODIUM 100 MG CAP PO SCH ×2 (08:54→22:05)
[2017-11-17] MEDS: FLUCONAZOLE 200 MG TAB PO SCH (08:54)
[2017-11-17] MEDS: ASPIRIN 325 MG TAB PO SCH (08:54)
[2017-11-17] MEDS: NIFEdipine 60 MG SUSTAINED RELEASE TAB PO SCH (08:55)
[2017-11-17] MEDS: predniSONE 10 MG TAB PO SCH ×2 (08:55→22:05)
[2017-11-17] MEDS: BENZONATATE 100 MG CAP PO SCH ×3 (08:55→18:52)
[2017-11-17] MEDS: BUDESONIDE-FORMOTEROL 160/4.5 MCG INHALER INH SCH ×2 (08:55→22:06)
[2017-11-17] MEDS: LACTOBACILLUS ACIDOPHILUS TAB PO SCH ×3 (08:55→18:52)
[2017-11-17] MEDS: guaiFENesin E.R. 600 MG TAB PO SCH ×2 (08:55→22:06)
[2017-11-17] MEDS: DULoxetine HCl DR 30 MG CAP PO SCH (08:55)
[2017-11-17] MEDS: ENOXAPARIN SODIUM 30 MG/0.3 ML SYRINGE SQ SCH (09:55)
--- NOTE | 2017-11-17 11:09 | HHI.IDPN ---
Subjective Subjective Remarks Patient is a 47-year-old female, with known history of asthma, presented to the hospital complaining of severe low back pain for 3 days, with shortness of breath. She has some cough but she was afraid to cough because it worsens her back pain. She was also having fever and chills. Denies any chest pain, or any urinary complaints. She's had some constipation. The pain in her back goes like it's muscular, but it is now coming shooting pain that goes up her upper spine. 2 blood cultures done on admission are now reported as growing MRSA. Her chest x-rays normal. He has been getting worse in the back. Her WBC is elevated. She is getting Decadron and Levaquin for her pulmonary problem. 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 She had an admission back in August for labial abscess and the culture had MRSA. She was not bacteremic at that time. Infectious disease consultation has been requested to evaluate the patient. Notes reviewed. D/W RN Has been moved to a different room Temps ok Last (+) BC with MRSA 11/04 2 BC (+) 11/07 with Diane albicans Fup BC negative so far Line C/S negative so far Central line removed 11/09 Last HD 11/13 Good UO, Creatinine slowly increasing again No rash or itching CT A/P and chest, no abscess, has some nodules in lung MRI showed abnormal signal involving the dura in the lower thoracic and upper lumbar spine with heterogenous enhancement of T11 and T12 suggest underlying infectious process/osteomyelitis. No obvious epidural collection. Echo showed EF 50-55%. Wall thickness normal. Normal left ventricular. Trace MVR. Trace TVR. No vegetation KIESHA unremarkable Antibiotics Daptomycin IV Diflucan Current Medications Medications (Trade) Dose Ordered Sig/Juanpablo Route Start Time Stop Time Status Last Admin (Duoneb Neb) 1 ampule Q2HR NEB PRN NEB 10/30/17 22:45 (Mucinex Er) 600 mg BID PO 10/31/17 09:00 11/17/17 08:55 (NS Flush) 2 ml UNSCH PRN IV FLUSH 10/30/17 22:45 11/10/17 05:25 (NS Flush) 2 ml BID IV FLUSH 10/31/17 09:00 11/17/17 08:33 (Zofran Inj) 4 mg Q6H PRN IVP 10/30/17 22:45 (Tylenol) 650 mg Q6H PRN PO 10/30/17 22:45 10/31/17 07:11 (Milk Of Magnesia Liq) 30 ml Q12H PRN PO 10/30/17 22:45 (Senokot) 17.2 mg Q12H PRN PO 10/30/17 22:45 10/31/17 07:41 (Dulcolax Supp) 10 mg DAILY PRN RECTAL 10/30/17 22:45 (Lactulose Liq) 30 ml DAILY PRN PO 10/30/17 22:45 (Aspirin) 325 mg DAILY PO 10/31/17 09:00 11/17/17 08:54 (Symbicort 160-4.5 Mcg Inh) 2 puff Q12HR INH 10/31/17 09:00 11/17/17 08:55 (Cymbalta Dr) 30 mg DAILY PO 10/31/17 09:00 11/17/17 08:55 (Dilaudid) 4 mg Q4H PRN PO 10/30/17 22:45 11/17/17 09:54 (Singulair) 10 mg HS PO 10/31/17 21:00 11/16/17 21:52 (Valium) 5 mg Q8H PRN PO 10/30/17 23:00 11/17/17 06:01 (Tessalon) 100 mg TID PO 10/31/17 13:00 11/17/17 08:55 (Flexeril) 5 mg Q8H PRN PO 10/31/17 10:45 11/17/17 09:54 (Lovenox Inj) 30 mg Q24H SQ 10/31/17 11:00 11/17/17 09:55 (Pill Splitter) 1 ea UNSCH PRN OTHER 10/31/17 11:00 (NS Flush) DAILY IV FLUSH 11/03/17 09:00 11/16/17 08:19 (NS Flush) UNSCH PRN IV FLUSH 11/02/17 14:15 (Dilaudid Pf Inj) 0.5 mg Q3H PRN IV PUSH 11/04/17 16:15 (Colace) 100 mg BID PO 11/04/17 21:00 11/17/17 08:54 (Catapres) 0.1 mg Q6H PRN PO 11/04/17 13:45 11/10/17 20:55 (Procardia Xl) 60 mg DAILY PO 11/06/17 09:00 11/17/17 08:55 Daptomycin 970 mg/ Sodium Chloride 100 ml @ 200 mls/hr Q48H IV 11/08/17 21:00 11/16/17 21:52 (NS Flush) UNSCH PRN IV FLUSH 11/10/17 09:45 (Heparin Inj) UNSCH PRN IV FLUSH 11/10/17 09:45 11/13/17 15:16 (Lactinex) 1 tab TID PO 11/10/17 13:00 11/17/17 08:55 Sodium Chloride 1,000 ml @ 0 mls/hr Q0M PRN OTHER 11/10/17 11:38 (Heparin Inj) 8,000 units UNSCH PRN IV FLUSH 11/10/17 11:45 Sodium Chloride 1,000 ml @ 200 mls/hr Q5H PRN IV 11/10/17 11:38 Sodium Chloride 1,000 ml @ 0 mls/hr Q0M PRN OTHER 11/10/17 11:38 (Mannitol Inj) 12.5 gm UNSCH PRN IV 11/10/17 11:45 Albumin Human 100 ml @ 60 mls/hr UNSCH PRN IV 11/10/17 11:45 (NS Flush) 5 ml UNSCH PRN IV FLUSH 11/10/17 11:45 (Heparin Inj) UNSCH PRN .XX 11/10/17 11:45 11/11/17 18:10 (Gentamicin Inj) 20 mg UNSCH PRN OTHER 11/10/17 11:45 11/13/17 15:17 (Zofran Inj) 4 mg UNSCH PRN IV PUSH 11/10/17 11:45 11/13/17 14:30 (Tylenol) 650 mg UNSCH PRN PO 11/10/17 11:45 (Benadryl) 25 mg UNSCH PRN PO 11/10/17 11:45 (Nitrostat Sl) 0.4 mg UNSCH PRN SL 11/10/17 11:45 (Catapres) 0.1 mg UNSCH PRN PO 11/10/17 11:45 (Epogen Inj) 4,000 units UNSCH PRN IV PUSH 11/10/17 11:45 11/11/17 18:10 (Gelfoam 12 Mm/7 Mm Top) 1 foam UNSCH PRN TOP 11/10/17 11:45 (Diflucan) 200 mg DAILY PO 11/12/17 09:00 11/17/17 08:54 (Deltasone) 10 mg BID PO 11/16/17 21:00 11/17/17 08:55 Lines LIJ central line RIJ vascath Past Medical History Livedo vasculopathy, 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 COPD. GERD. Obesity. 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 Labial abscess, drained Past Surgical History Screws / plats in left elbow Left breast abscess drainage I and D labial abscess Allergies: Coded Allergies: No Known Allergies (Verified Allergy, Unknown, 11/09/17) Objective . Vital Signs Date Time Temp Pulse Resp B/P (MAP) Pulse Ox O2 Delivery O2 Flow Rate FiO2 11/17/17 09:00 95 2.00 11/17/17 08:00 97.8 76 18 157/100 (119) 94 11/17/17 04:00 98.1 71 20 130/68 (88) 92 11/17/17 03:42 70 11/17/17 00:05 69 11/17/17 00:00 97.9 72 20 122/61 (81) 95 11/16/17 20:28 98.2 63 18 144/72 (96) 97 11/16/17 20:00 Nasal Cannula 2.00 11/16/17 19:47 70 11/16/17 16:26 97 Nasal Cannula 2.00 11/16/17 16:15 97.8 58 18 128/84 (99) 95 11/16/17 16:14 60 11/16/17 12:03 66 11/16/17 11:50 97.6 64 18 130/80 (97) 97 . Laboratory Tests Test 11/17/17 06:01 White Blood Count 12.1 TH/MM3 Red Blood Count 4.32 MIL/MM3 Hemoglobin 10.3 GM/DL Hematocrit 32.0 % Mean Corpuscular Volume 74.1 FL Mean Corpuscular Hemoglobin 23.8 PG Mean Corpuscular Hemoglobin Concent 32.1 % Red Cell Distribution Width 17.9 % Platelet Count 270 TH/MM3 Mean Platelet Volume 7.5 FL Laboratory Tests Test 11/16/17 06:10 11/17/17 06:01 Blood Urea Nitrogen 50 MG/DL 59 MG/DL Creatinine 3.56 MG/DL 3.63 MG/DL Random Glucose 116 MG/DL 98 MG/DL Albumin 2.7 GM/DL Calcium Level 9.0 MG/DL 8.6 MG/DL Phosphorus Level 4.9 MG/DL Sodium Level 134 MEQ/L 135 MEQ/L Potassium Level 4.2 MEQ/L 3.9 MEQ/L Chloride Level 92 MEQ/L 92 MEQ/L Carbon Dioxide Level 35.3 MEQ/L 35.1 MEQ/L Anion Gap 7 MEQ/L 8 MEQ/L Estimat Glomerular Filtration Rate 14 ML/MIN 13 ML/MIN Total Creatine Kinase 13 U/L Imaging Last Impressions Chest CT 11/03/17 0000 Signed Impressions: Service Date/Time: Friday, November 03, 2017 22:37 - CONCLUSION: Minimal effusions. Mild basilar atelectasis. Patchy areas of minimal airspace infiltrate. Multiple small parenchymal lung nodules which should be followed Domenic Pulido MD Abdomen/Pelvis CT 11/03/17 0000 Signed Impressions: Service Date/Time: Friday, November 03, 2017 22:37 - CONCLUSION: 1. Small bilateral pleural effusions with mild basilar atelectasis the lungs. No acute findings within the abdomen and pelvis. Moderate constipation of the right colon. Melchor Caceres MD Central Venous Line 11/02/17 0000 Signed Impressions: Service Date/Time: Thursday, November 02, 2017 14:08 - CONCLUSION: Uncomplicated line placement as above. Robert Navarro MD Thoracic Spine MRI 11/01/17 0000 Signed Impressions: Service Date/Time: Wednesday, November 01, 2017 17:21 - CONCLUSION: There is heterogeneous enhancement T11 and T12 with surrounding perivertebral edema and dural enhancement anterior and posterior to the cord. A well-defined mass is not seen. Intervertebral disc signal intensity is normal without enhancement to suggest discitis, however an osteomyelitis or other underlying infectious process should be excluded. Valente Prasad MD Lumbar Spine X-Ray 11/01/17 0000 Signed Impressions: Service Date/Time: Wednesday, November 01, 2017 18:18 - CONCLUSION: No acute disease. Vlaente Prasad MD Lumbar Spine MRI 11/01/17 0000 Signed Impressions: Service Date/Time: Wednesday, November 01, 2017 17:21 - CONCLUSION: Abnormal signal involving the dura in the lower thoracic and upper lumbar spine with heterogeneous enhancement of T11 and T12 suggest underlying infectious process/osteomyelitis. No obvious epidural collections at this time.. Valente Prasad MD Chest X-Ray 10/30/172031 Signed Impressions: Service Date/Time: Monday, October 30, 2017 21:48 - CONCLUSION: No acute disease. Domenic Davis MD Physical Exam GENERAL: NAD. Awake and alert. SKIN: Warm and dry. No generalized rash, no ecchymoses and no evidence of embolic lesions. Has brownish pigmentation on both lower legs HEAD: Atraumatic. Normocephalic. EYES: Gackle conjunctiva. No petechia or hemorrhage. Extraocular movements full and intact. No scleral icterus. No injection or drainage. EARS, NOSE AND THROAT: Nose without bleeding or purulent nasal discharge. No sinus tenderness. Mucous membranes pink and moist. No oral lesions noted. No oral thrush. NECK: Trachea midline. RIJ and LIJ line ok CARDIAC: Regular rate and rhythm. No murmurs, rubs or gallops heard RESPIRATORY: Diminished breath sounds but clear to auscultation. ABDOMEN: Soft, non-tender, nondistended. Bowel sounds present and normoactive. EXTREMITIES: No clubbing, cyanosis, or edema. No calf tenderness NEUROLOGICAL: Awake and alert. Cranial nerves grossly intact. Motor grossly within normal limits. Speech is normal. PSYCHIATRIC: Appropriate mood and affect. Normal insight and judgment LINE: No evidence of infection. Assessment & Plan Remarks MRSA septicemia, source, likely secondary to T11-T12 osteo - KIESHA negative - -baseline ESR 38, CRP 11 - MRI showed abnormal signal involving the dura in the lower thoracic and upper lumbar spine with heterogenous enhancement of T11 and T12 suggest underlying infectious process/osteomyelitis. No obvious epidural collection - BC (+) 10/31-11/04 Diane albicans (+) BC, likely line, removed 11/09 (originally placed 11/02) Severe low back pain, due to osteo - better as far as pain control Acute kidney injury - likely due to IV contrast - ?Vanco Bilateral pleural effusions COPD exacerbation, improving Suspected PNA -CT Chest minimal effusions, mild basilar atelectasis. Patchy areas of minimal airspace infiltrate. -completed course of Levaquin -on IV steroids and Duonebs Lung nodules -Multiple small parenchymal lung nodules noted on CT of the chest, recommended follow-up, ?emboli Prior Hx labial abscess Aug 2017 Hx livedo vasculopathy Recommendations Continue daptomycin Continue Diflucan Monitor temps Monitor progress Possibly do another MRI back this week Jazmín Velez MD Nov 17, 2017 11:08
--- NOTE | 2017-11-17 12:37 | HHI.NPPN ---
Subjective History of Present Illness 47 year old with sepsis now with ARF, thoracic spine fluid collection Additional Remarks c/o sweats, back pain Objective Data Data Vital Signs Date Time Temp Pulse Resp B/P (MAP) Pulse Ox O2 Delivery O2 Flow Rate FiO2 11/17/17 09:00 95 2.00 11/17/17 08:00 97.8 76 18 157/100 (119) 94 11/17/17 04:00 98.1 71 20 130/68 (88) 92 11/17/17 03:42 70 11/17/17 00:05 69 11/17/17 00:00 97.9 72 20 122/61 (81) 95 11/16/17 20:28 98.2 63 18 144/72 (96) 97 11/16/17 20:00 Nasal Cannula 2.00 11/16/17 19:47 70 11/16/17 16:26 97 Nasal Cannula 2.00 11/16/17 16:15 97.8 58 18 128/84 (99) 95 11/16/17 16:14 60 -: 11/17/17 0601 11/17/17 0601 Physical Exam General Appearance: Well Developed, Well Nourished Neck Neck Exam: Neck Supple Pulmonary Resp Exam: Clear Bilaterally, Breath Sounds Equal Cardiology CV Exam: Regular, Normal Sinus Rhythm Gastrointestinal/Abdomen GI Exam: Soft, Distended Extremeties Extremities Exam: No Edema Neurologic Neuro Exam: Alert, Awake, Oriented Assessment/Plan Problem List: (1) Acute renal failure ICD Codes: N17.9 - Acute kidney failure, unspecified Plan: Patient has developed acute tubular necrosis after receiving contrast studies and she was on IV vancomycin Patient is nonoliguric Last hemodialysis was on 11/13. Hemodialysis as needed Follow BMP UOP increased check BMP in am Hold off hemodialysis today asked her to drink water (2) Osteomyelitis ICD Codes: M86.9 - Osteomyelitis, unspecified Plan: Thoracic spine she is getting daptomycin (3) Bacteremia ICD Codes: R78.81 - Bacteremia (4) MRSA bacteremia ICD Codes: R78.81 - Bacteremia Status: Acute Plan: On daptomycin and ceftaroline (5) Chronic back pain ICD Codes: M54.9 - Dorsalgia, unspecified; G89.29 - Other chronic pain Status: Acute Plan: Possible osteomyelitis (6) COPD with acute exacerbation ICD Codes: J44.1 - Chronic obstructive pulmonary disease with (acute) exacerbation Status: Acute Plan: Continue with current treatment Problem Qualifiers (1) Acute renal failure: Qualified Codes: N17.0 - Acute kidney failure with tubular necrosis (2) Chronic back pain: Qualified Codes: M54.5 - Low back pain; G89.29 - Other chronic pain David Sales MD Nov 17, 2017 12:37
--- NOTE | 2017-11-17 14:38 | HHI.PR ---
Subjective Remarks Patient states she is feeling ok. No new issues. Objective Vitals Vital Signs Date Time Temp Pulse Resp B/P (MAP) Pulse Ox O2 Delivery O2 Flow Rate FiO2 11/17/17 12:00 98.1 64 18 150/85 (106) 95 11/17/17 09:00 95 2.00 11/17/17 08:00 97.8 76 18 157/100 (119) 94 11/17/17 04:00 98.1 71 20 130/68 (88) 92 11/17/17 03:42 70 11/17/17 00:05 69 11/17/17 00:00 97.9 72 20 122/61 (81) 95 11/16/17 20:28 98.2 63 18 144/72 (96) 97 11/16/17 20:00 Nasal Cannula 2.00 11/16/17 19:47 70 11/16/17 16:26 97 Nasal Cannula 2.00 11/16/17 16:15 97.8 58 18 128/84 (99) 95 11/16/17 16:14 60 I/O 11/16/17 11/16/17 11/16/17 11/17/17 11/17/17 11/17/17 06:59 14:59 22:59 06:59 14:59 22:59 Intake Total 420 ml 840 ml 940 ml Output Total 1200 ml 550 ml 1700 ml Balance -780 ml 290 ml -760 ml Intake Oral 420 ml 840 ml 840 ml IV Total 100 ml Output Urine Total 1200 ml 550 ml 1700 ml # Bowel Movements 1 1 1 Result Diagram: 11/17/17 0601 11/17/17 06 Objective Remarks GENERAL: Obese female in no apparent distress. CARDIOVASCULAR: Normal rate and regular rhythm without murmurs, gallops, or rubs. RESPIRATORY: Good respiratory efforts. Breath sounds equal and clear to auscultation bilaterally. GASTROINTESTINAL: Abdomen obese, soft, non-tender, non-distended. Normal active bowel sounds MUSCULOSKELETAL: Extremities without cyanosis, or edema. NEURO: Alert & Oriented x4 to person, place, time, situation. Moves all ext x4 PSYCH: Appropriate mood and affect. Procedures Echocardiogram 11/03/2017 The left ventricular systolic function is low normal with an estimated ejection fraction in the range of 50- 55%. Trace mitral valve regurgitation. There is trace tricuspid valve regurgitation. A/P Problem List: (1) COPD (chronic obstructive pulmonary disease) ICD Code: J44.9 - Chronic obstructive pulmonary disease Status: Chronic (2) Hypoxia ICD Code: R09.02 - Hypoxia Status: Acute (3) Chronic back pain ICD Code: M54.9 - Dorsalgia, unspecified; G89.29 - Other chronic pain Status: Acute (4) MRSA bacteremia ICD Code: R78.81 - Bacteremia Status: Acute Assessment and Plan 47-year-old female admitted secondary to an exacerbation of back pain suspected to be T11-T12 osteomyelitis, with persisting MRSA bacteremia. 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 To consider repeat MRI of the later this week. Continue daptomycin and Diflucan per infectious disease. Follow cultures. Acute kidney injury: Secondary to acute tubular necrosis contrast and vancomycin. Patient has developed acute tubular necrosis after receiving contrast studies and she was on IV vancomycin Appreciate nephrology following. Status post hemodialysis on 11/11. 11/13. Nonoliguric. Renal functions with slight bump today. Vas-Cath Hemodialysis on hold per nephrology Follow BMP Avoid nephrotoxins Suspected pneumonia Completed course of Levaquin. Symptoms resolved. Hypertension Continue baseline treatment Follow blood pressures Adjust treatments as needed Continue nifedipine COPD continue DuoNeb, Symbicort, Mucinex. Continue to wean oral prednisone Chronic back pain continue Flexeril, Valium, hydromorphone as needed. DVT prophylaxis Lovenox Problem Qualifiers (1) Chronic back pain: Qualified Codes: M54.5 - Low back pain; G89.29 - Other chronic pain Lobo Quinones MD Nov 17, 2017 14:38
[2017-11-17] MEDS: MONTELUKAST SODIUM 10 MG TAB PO SCH (22:05)
[2017-11-18] VITALS (11 sets, daily range): BP systolic 117–145; BP diastolic 63–78; PULSE 67–84; RESP 18–20; TEMP 97.2–98; O2SAT 94–97
[2017-11-18] MEDS: CYCLOBENZAPRINE HCL 10 MG TAB PO PRN ×3 (02:42→19:07)
[2017-11-18] MEDS: HYDROmorphone HCL 4 MG TAB PO PRN ×6 (02:42→22:56)
[2017-11-18] MEDS: DIAZEPAM 5 MG TAB PO PRN ×3 (06:41→22:57)
[2017-11-18] MEDS: SODIUM CHLORIDE 0.9% FLUSH 10 ML FLUSH IV FLUSH SCH ×3 (07:47→21:00)
[2017-11-18] MEDS: NIFEdipine 60 MG SUSTAINED RELEASE TAB PO SCH (08:09)
[2017-11-18] MEDS: FLUCONAZOLE 200 MG TAB PO SCH (08:09)
[2017-11-18] MEDS: BUDESONIDE-FORMOTEROL 160/4.5 MCG INHALER INH SCH ×2 (08:09→21:00)
[2017-11-18] MEDS: ASPIRIN 325 MG TAB PO SCH (08:09)
[2017-11-18] MEDS: DULoxetine HCl DR 30 MG CAP PO SCH (08:09)
[2017-11-18] MEDS: DOCUSATE SODIUM 100 MG CAP PO SCH ×2 (08:09→21:26)
[2017-11-18] MEDS: guaiFENesin E.R. 600 MG TAB PO SCH ×2 (08:09→21:26)
[2017-11-18] MEDS: BENZONATATE 100 MG CAP PO SCH ×3 (08:09→17:08)
[2017-11-18] MEDS: LACTOBACILLUS ACIDOPHILUS TAB PO SCH ×3 (08:09→17:08)
[2017-11-18] MEDS: predniSONE 10 MG TAB PO SCH ×2 (08:09→21:27)
[2017-11-18 08:20] LABS: ALBUMIN 2.8 GM/DL (3.4-5.0); CALCIUM 8.8 MG/DL (8.5-10.1); CREATININE 3.28 MG/DL (0.50-1.00); PHOSPHORUS 4.5 MG/DL (2.5-4.9)
[2017-11-18] MEDS: ENOXAPARIN SODIUM 30 MG/0.3 ML SYRINGE SQ SCH (10:50)
--- NOTE | 2017-11-18 13:55 | HHI.NPPN ---
Subjective History of Present Illness 47 year old with sepsis now with ARF, thoracic spine fluid collection Additional Remarks c/o sweats, back pain Objective Data Data Vital Signs Date Time Temp Pulse Resp B/P (MAP) Pulse Ox O2 Delivery O2 Flow Rate FiO2 11/18/17 08:47 94 21 11/18/17 08:17 97.2 70 18 118/77 (91) 94 11/18/17 04:00 97.6 67 20 117/63 (81) 96 11/18/17 04:00 Nasal Cannula 2.00 11/18/17 00:00 97.9 68 20 122/74 (90) 96 11/18/17 00:00 Room Air 11/17/17 23:45 68 11/17/17 20:00 98.3 70 20 122/71 (88) 96 11/17/17 20:00 Nasal Cannula 2.00 11/17/17 19:48 72 11/17/17 17:50 95 Nasal Cannula 2.00 11/17/17 16:00 97.9 70 17 135/80 (98) 95 -: 11/17/17 0601 11/18/17 0720 Physical Exam General Appearance: Well Developed, Well Nourished Neck Neck Exam: Neck Supple Pulmonary Resp Exam: Clear Bilaterally, Breath Sounds Equal Cardiology CV Exam: Regular, Normal Sinus Rhythm Gastrointestinal/Abdomen GI Exam: Soft, Distended Extremeties Extremities Exam: No Edema Neurologic Neuro Exam: Alert, Awake, Oriented Assessment/Plan Problem List: (1) Acute renal failure ICD Codes: N17.9 - Acute kidney failure, unspecified Plan: Patient has developed acute tubular necrosis after receiving contrast studies and she was on IV vancomycin Patient is nonoliguric Last hemodialysis was on 11/13. Hemodialysis on hold Creatinine declining Follow BMP UOP increased check BMP in am Hold off hemodialysis asked her to drink water (2) Osteomyelitis ICD Codes: M86.9 - Osteomyelitis, unspecified Plan: Thoracic spine she is getting daptomycin (3) Bacteremia ICD Codes: R78.81 - Bacteremia (4) MRSA bacteremia ICD Codes: R78.81 - Bacteremia Status: Acute Plan: On daptomycin and ceftaroline (5) Chronic back pain ICD Codes: M54.9 - Dorsalgia, unspecified; G89.29 - Other chronic pain Status: Acute Plan: Possible osteomyelitis (6) COPD with acute exacerbation ICD Codes: J44.1 - Chronic obstructive pulmonary disease with (acute) exacerbation Status: Acute Plan: Continue with current treatment Problem Qualifiers (1) Acute renal failure: Qualified Codes: N17.0 - Acute kidney failure with tubular necrosis (2) Chronic back pain: Qualified Codes: M54.5 - Low back pain; G89.29 - Other chronic pain David Sales MD Nov 18, 2017 13:55
--- NOTE | 2017-11-18 15:24 | HHI.PR ---
Subjective Remarks Patient reports she is feeling better today. Abdomen feels less bloated. Objective Vitals Vital Signs Date Time Temp Pulse Resp B/P (MAP) Pulse Ox O2 Delivery O2 Flow Rate FiO2 11/18/17 08:47 94 21 11/18/17 08:17 97.2 70 18 118/77 (91) 94 11/18/17 04:00 97.6 67 20 117/63 (81) 96 11/18/17 04:00 Nasal Cannula 2.00 11/18/17 00:00 97.9 68 20 122/74 (90) 96 11/18/17 00:00 Room Air 11/17/17 23:45 68 11/17/17 20:00 98.3 70 20 122/71 (88) 96 11/17/17 20:00 Nasal Cannula 2.00 11/17/17 19:48 72 11/17/17 17:50 95 Nasal Cannula 2.00 11/17/17 16:00 97.9 70 17 135/80 (98) 95 I/O 11/17/17 11/17/17 11/17/17 11/18/17 11/18/17 11/18/17 07:00 15:00 23:00 07:00 15:00 23:00 Intake Total 840 ml 380 ml Output Total 1700 ml Balance -860 ml 380 ml Intake Oral 840 ml 380 ml Output Urine Total 1700 ml # Voids 3 # Bowel Movements 1 0 Result Diagram: 11/17/17 0601 11/18/17 0720 Objective Remarks GENERAL: Obese female in no apparent distress. CARDIOVASCULAR: Normal rate and regular rhythm without murmurs, gallops, or rubs. RESPIRATORY: Good respiratory efforts. Breath sounds equal and clear to auscultation bilaterally. GASTROINTESTINAL: Abdomen obese, soft, non-tender, non-distended. Normal active bowel sounds MUSCULOSKELETAL: Extremities without cyanosis, or edema. NEURO: Alert & Oriented x4 to person, place, time, situation. Moves all ext x4 PSYCH: Appropriate mood and affect. Procedures Echocardiogram 11/03/2017 The left ventricular systolic function is low normal with an estimated ejection fraction in the range of 50- 55%. Trace mitral valve regurgitation. There is trace tricuspid valve regurgitation. A/P Problem List: (1) COPD (chronic obstructive pulmonary disease) ICD Code: J44.9 - Chronic obstructive pulmonary disease Status: Chronic (2) Hypoxia ICD Code: R09.02 - Hypoxia Status: Acute (3) Chronic back pain ICD Code: M54.9 - Dorsalgia, unspecified; G89.29 - Other chronic pain Status: Acute (4) MRSA bacteremia ICD Code: R78.81 - Bacteremia Status: Acute Assessment and Plan 47-year-old female admitted secondary to an exacerbation of back pain suspected to be T11-T12 osteomyelitis, with persisting MRSA bacteremia. 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 To consider repeat MRI of the later this week. Continue daptomycin and Diflucan per infectious disease. Follow cultures. Acute kidney injury: Secondary to acute tubular necrosis contrast and vancomycin. Patient has developed acute tubular necrosis after receiving contrast studies and she was on IV vancomycin Appreciate nephrology following. Status post hemodialysis on 11/11. 11/13. Nonoliguric. Renal functions with slight improvement today. Vas-Cath Hemodialysis on hold per nephrology Follow BMP Avoid nephrotoxins Suspected pneumonia Completed course of Levaquin. Symptoms resolved. Hypertension Continue baseline treatment Follow blood pressures Adjust treatments as needed Continue nifedipine COPD continue DuoNeb, Symbicort, Mucinex. Continue to wean oral prednisone Chronic back pain continue Flexeril, Valium, hydromorphone as needed. DVT prophylaxis Lovenox Problem Qualifiers (1) Chronic back pain: Qualified Codes: M54.5 - Low back pain; G89.29 - Other chronic pain Lobo Quinones MD Nov 18, 2017 15:24
[2017-11-18] MEDS: SODIUM CHLORIDE 0.9% IV SCH (21:00)
[2017-11-18] MEDS: DAPTOMYCIN IV SCH (21:00)
[2017-11-18] MEDS: MONTELUKAST SODIUM 10 MG TAB PO SCH (21:26)
[2017-11-19] VITALS (12 sets, daily range): BP systolic 130–155; BP diastolic 68–82; PULSE 63–90; RESP 18–20; TEMP 97.4–98.1; O2SAT 95–98
[2017-11-19] MEDS: CYCLOBENZAPRINE HCL 10 MG TAB PO PRN ×3 (03:05→19:34)
[2017-11-19] MEDS: HYDROmorphone HCL 4 MG TAB PO PRN ×6 (03:05→23:18)
[2017-11-19] MEDS: DIAZEPAM 5 MG TAB PO PRN ×3 (06:42→23:18)
[2017-11-19 07:23] LABS: BICARBONATE 27.9 MEQ/L (21.0-32.0); CREATININE 2.92 MG/DL (0.50-1.00)
[2017-11-19] MEDS: SODIUM CHLORIDE 0.9% FLUSH 10 ML FLUSH IV FLUSH SCH ×3 (09:47→21:00)
[2017-11-19] MEDS: NIFEdipine 60 MG SUSTAINED RELEASE TAB PO SCH (09:47)
[2017-11-19] MEDS: ASPIRIN 325 MG TAB PO SCH (09:47)
[2017-11-19] MEDS: DOCUSATE SODIUM 100 MG CAP PO SCH ×2 (09:47→21:00)
[2017-11-19] MEDS: BUDESONIDE-FORMOTEROL 160/4.5 MCG INHALER INH SCH ×2 (09:47→21:36)
[2017-11-19] MEDS: guaiFENesin E.R. 600 MG TAB PO SCH ×2 (09:48→21:41)
[2017-11-19] MEDS: BENZONATATE 100 MG CAP PO SCH ×3 (09:48→17:32)
[2017-11-19] MEDS: FLUCONAZOLE 200 MG TAB PO SCH (09:48)
[2017-11-19] MEDS: LACTOBACILLUS ACIDOPHILUS TAB PO SCH ×3 (09:48→17:32)
[2017-11-19] MEDS: predniSONE 10 MG TAB PO SCH ×2 (09:48→21:35)
[2017-11-19] MEDS: DULoxetine HCl DR 30 MG CAP PO SCH (09:48)
[2017-11-19] MEDS: ENOXAPARIN SODIUM 30 MG/0.3 ML SYRINGE SQ SCH (11:13)
--- NOTE | 2017-11-19 14:03 | HHI.IDPN ---
Subjective Subjective Remarks Patient is a 47-year-old female, with known history of asthma, presented to the hospital complaining of severe low back pain for 3 days, with shortness of breath. She has some cough but she was afraid to cough because it worsens her back pain. She was also having fever and chills. Denies any chest pain, or any urinary complaints. She's had some constipation. The pain in her back goes like it's muscular, but it is now coming shooting pain that goes up her upper spine. 2 blood cultures done on admission are now reported as growing MRSA. Her chest x-rays normal. He has been getting worse in the back. Her WBC is elevated. She is getting Decadron and Levaquin for her pulmonary problem. 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 She had an admission back in August for labial abscess and the culture had MRSA. She was not bacteremic at that time. Infectious disease consultation has been requested to evaluate the patient. Notes reviewed. C/O sweats x few days NO fever documented No diarrhea Still C/O swelling in her trunk Voiding ok Lines placed 11/09 No rash or itching Creatinine decreasing Making urine Last HD 11/13 CT A/P and chest, no abscess, has some nodules in lung MRI showed abnormal signal involving the dura in the lower thoracic and upper lumbar spine with heterogenous enhancement of T11 and T12 suggest underlying infectious process/osteomyelitis. No obvious epidural collection. Echo showed EF 50-55%. Wall thickness normal. Normal left ventricular. Trace MVR. Trace TVR. No vegetation KIESHA unremarkable Antibiotics Daptomycin IV Diflucan Current Medications Medications (Trade) Dose Ordered Sig/Juanpablo Route Start Time Stop Time Status Last Admin (Duoneb Neb) 1 ampule Q2HR NEB PRN NEB 10/30/17 22:45 (Mucinex Er) 600 mg BID PO 10/31/17 09:00 11/19/17 09:48 (NS Flush) 2 ml UNSCH PRN IV FLUSH 10/30/17 22:45 11/10/17 05:25 (NS Flush) 2 ml BID IV FLUSH 10/31/17 09:00 11/19/17 09:47 (Zofran Inj) 4 mg Q6H PRN IVP 10/30/17 22:45 (Tylenol) 650 mg Q6H PRN PO 10/30/17 22:45 10/31/17 07:11 (Milk Of Magnesia Liq) 30 ml Q12H PRN PO 10/30/17 22:45 (Senokot) 17.2 mg Q12H PRN PO 10/30/17 22:45 10/31/17 07:41 (Dulcolax Supp) 10 mg DAILY PRN RECTAL 10/30/17 22:45 (Lactulose Liq) 30 ml DAILY PRN PO 10/30/17 22:45 (Aspirin) 325 mg DAILY PO 10/31/17 09:00 11/19/17 09:47 (Symbicort 160-4.5 Mcg Inh) 2 puff Q12HR INH 10/31/17 09:00 11/19/17 09:47 (Cymbalta Dr) 30 mg DAILY PO 10/31/17 09:00 11/19/17 09:48 (Dilaudid) 4 mg Q4H PRN PO 10/30/17 22:45 11/19/17 11:14 (Singulair) 10 mg HS PO 10/31/17 21:00 11/18/17 21:26 (Valium) 5 mg Q8H PRN PO 10/30/17 23:00 11/19/17 06:42 (Tessalon) 100 mg TID PO 10/31/17 13:00 11/19/17 13:28 (Flexeril) 5 mg Q8H PRN PO 10/31/17 10:45 11/19/17 11:14 (Lovenox Inj) 30 mg Q24H SQ 10/31/17 11:00 11/19/17 11:13 (Pill Splitter) 1 ea UNSCH PRN OTHER 10/31/17 11:00 (NS Flush) DAILY IV FLUSH 11/03/17 09:00 11/19/17 09:47 (NS Flush) UNSCH PRN IV FLUSH 11/02/17 14:15 (Dilaudid Pf Inj) 0.5 mg Q3H PRN IV PUSH 11/04/17 16:15 (Colace) 100 mg BID PO 11/04/17 21:00 11/19/17 09:47 (Catapres) 0.1 mg Q6H PRN PO 11/04/17 13:45 11/10/17 20:55 (Procardia Xl) 60 mg DAILY PO 11/06/17 09:00 11/19/17 09:47 Daptomycin 970 mg/ Sodium Chloride 100 ml @ 200 mls/hr Q48H IV 11/08/17 21:00 11/18/17 21:00 (NS Flush) UNSCH PRN IV FLUSH 11/10/17 09:45 (Heparin Inj) UNSCH PRN IV FLUSH 11/10/17 09:45 11/13/17 15:16 (Lactinex) 1 tab TID PO 11/10/17 13:00 11/19/17 13:28 Sodium Chloride 1,000 ml @ 0 mls/hr Q0M PRN OTHER 11/10/17 11:38 (Heparin Inj) 8,000 units UNSCH PRN IV FLUSH 11/10/17 11:45 Sodium Chloride 1,000 ml @ 200 mls/hr Q5H PRN IV 11/10/17 11:38 Sodium Chloride 1,000 ml @ 0 mls/hr Q0M PRN OTHER 11/10/17 11:38 (Mannitol Inj) 12.5 gm UNSCH PRN IV 11/10/17 11:45 Albumin Human 100 ml @ 60 mls/hr UNSCH PRN IV 11/10/17 11:45 (NS Flush) 5 ml UNSCH PRN IV FLUSH 11/10/17 11:45 (Heparin Inj) UNSCH PRN .XX 11/10/17 11:45 11/11/17 18:10 (Gentamicin Inj) 20 mg UNSCH PRN OTHER 11/10/17 11:45 11/13/17 15:17 (Zofran Inj) 4 mg UNSCH PRN IV PUSH 11/10/17 11:45 11/13/17 14:30 (Tylenol) 650 mg UNSCH PRN PO 11/10/17 11:45 (Benadryl) 25 mg UNSCH PRN PO 11/10/17 11:45 (Nitrostat Sl) 0.4 mg UNSCH PRN SL 11/10/17 11:45 (Catapres) 0.1 mg UNSCH PRN PO 11/10/17 11:45 (Epogen Inj) 4,000 units UNSCH PRN IV PUSH 11/10/17 11:45 11/11/17 18:10 (Gelfoam 12 Mm/7 Mm Top) 1 foam UNSCH PRN TOP 11/10/17 11:45 (Diflucan) 200 mg DAILY PO 11/12/17 09:00 11/19/17 09:48 (Deltasone) 10 mg BID PO 11/16/17 21:00 11/19/17 09:48 Lines LIJ central line [facility] Past Medical History Livedo vasculopathy, 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 COPD. GERD. Obesity. 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 Labial abscess, drained Past Surgical History Screws / plats in left elbow Left breast abscess drainage I and D labial abscess Allergies: Coded Allergies: No Known Allergies (Verified Allergy, Unknown, 11/09/17) Objective . Vital Signs Date Time Temp Pulse Resp B/P (MAP) Pulse Ox O2 Delivery O2 Flow Rate FiO2 11/19/17 12:25 97.4 69 18 155/75 (101) 95 11/19/17 09:09 96 11/19/17 07:35 98.1 64 20 137/82 (100) 96 11/19/17 04:00 Room Air 11/19/17 04:00 80 11/19/17 00:00 89 11/19/17 00:00 Room Air 11/19/17 00:00 97.9 79 19 145/75 (98) 95 11/18/17 21:54 98.0 68 145/75 (98) 97 11/18/17 21:26 95 11/18/17 21:00 84 11/18/17 20:00 Room Air 11/18/17 16:17 97.8 72 18 120/78 (92) 95 11/18/17 16:00 69 . Laboratory Tests Test 11/18/17 07:20 11/19/17 06:39 Blood Urea Nitrogen 60 MG/DL 60 MG/DL Creatinine 3.28 MG/DL 2.92 MG/DL Random Glucose 84 MG/DL 111 MG/DL Albumin 2.8 GM/DL Calcium Level 8.8 MG/DL 9.0 MG/DL Phosphorus Level 4.5 MG/DL Sodium Level 138 MEQ/L 136 MEQ/L Potassium Level 4.7 MEQ/L 5.3 MEQ/L Chloride Level 98 MEQ/L 100 MEQ/L Carbon Dioxide Level 33.0 MEQ/L 27.9 MEQ/L Anion Gap 7 MEQ/L 8 MEQ/L Estimat Glomerular Filtration Rate 15 ML/MIN 17 ML/MIN Imaging Last Impressions Chest CT 11/03/17 Signed Impressions: Service Date/Time: Friday, November 03, 2017 22:37 - CONCLUSION: Minimal effusions. Mild basilar atelectasis. Patchy areas of minimal airspace infiltrate. Multiple small parenchymal lung nodules which should be followed Domenic Pulido MD Abdomen/Pelvis CT 11/03/17 Signed Impressions: Service Date/Time: Friday, November 03, 2017 22:37 - CONCLUSION: 1. Small bilateral pleural effusions with mild basilar atelectasis the lungs. No acute findings within the abdomen and pelvis. Moderate constipation of the right colon. Melchor Caceres MD Central Venous Line 11/02/17 Signed Impressions: Service Date/Time: Thursday, November 02, 2017 14:08 - CONCLUSION: Uncomplicated line placement as above. Robert Navarro MD Thoracic Spine MRI 11/01/17 Signed Impressions: Service Date/Time: Wednesday, November 01, 2017 17:21 - CONCLUSION: There is heterogeneous enhancement T11 and T12 with surrounding perivertebral edema and dural enhancement anterior and posterior to the cord. A well-defined mass is not seen. Intervertebral disc signal intensity is normal without enhancement to suggest discitis, however an osteomyelitis or other underlying infectious process should be excluded. Valente Prasad MD Lumbar Spine X-Ray 11/01/17 Signed Impressions: Service Date/Time: Wednesday, November 01, 2017 18:18 - CONCLUSION: No acute disease. Valente Prasad MD Lumbar Spine MRI 11/01/17 0000 Signed Impressions: Service Date/Time: Wednesday, November 01, 2017 17:21 - CONCLUSION: Abnormal signal involving the dura in the lower thoracic and upper lumbar spine with heterogeneous enhancement of T11 and T12 suggest underlying infectious process/osteomyelitis. No obvious epidural collections at this time.. Valente Prasad MD Chest X-Ray 10/30/172031 Signed Impressions: Service Date/Time: Monday, October 30, 2017 21:48 - CONCLUSION: No acute disease. Domenic Davis MD Physical Exam GENERAL: NAD. Awake and alert. SKIN: Warm and dry. No generalized rash, no ecchymoses and no evidence of embolic lesions. Has brownish pigmentation on both lower legs HEAD: Atraumatic. Normocephalic. EYES: [place] conjunctiva. No petechia or hemorrhage. Extraocular movements full and intact. No scleral icterus. No injection or drainage. EARS, NOSE AND THROAT: Nose without bleeding or purulent nasal discharge. No sinus tenderness. Mucous membranes pink and moist. No oral lesions noted. No oral thrush. NECK: Trachea midline. RIJ and LIJ line ok CARDIAC: Regular rate and rhythm. No murmurs, rubs or gallops heard RESPIRATORY: Diminished breath sounds but clear to auscultation. ABDOMEN: Soft, non-tender, nondistended. Bowel sounds present and normoactive. EXTREMITIES: No clubbing, cyanosis, or edema. No calf tenderness NEUROLOGICAL: Awake and alert. Cranial nerves grossly intact. Motor grossly within normal limits. Speech is normal. PSYCHIATRIC: Appropriate mood and affect. Normal insight and judgment LINE: No evidence of infection. Assessment & Plan Remarks MRSA septicemia, source, likely secondary to T11-T12 osteo - KIESHA negative - -baseline ESR 38, CRP 11 - MRI showed abnormal signal involving the dura in the lower thoracic and upper lumbar spine with heterogenous enhancement of T11 and T12 suggest underlying infectious process/osteomyelitis. No obvious epidural collection - BC (+) 10/31-11/04 Diane albicans (+) BC, likely line, removed 11/09 (originally placed 11/02) Severe low back pain, due to osteo - better as far as pain control Acute kidney injury - likely due to IV contrast - ?Vanco Bilateral pleural effusions COPD exacerbation, improving Suspected PNA, better -CT Chest minimal effusions, mild basilar atelectasis. Patchy areas of minimal airspace infiltrate. -completed course of Levaquin Lung nodules -Multiple small parenchymal lung nodules noted on CT of the chest, recommended follow-up, ?emboli Prior Hx labial abscess Aug 2017 Hx livedo vasculopathy Recommendations Continue daptomycin Continue Diflucan Monitor temps Monitor progress Repeat BC from line since C/O ryanne Recheck UA and C/S Explained plan to patient Jazmín Velez MD Nov 19, 2017 14:03
--- NOTE | 2017-11-19 15:10 | HHI.NPPN ---
Subjective History of Present Illness 47 year old with sepsis now with ARF, thoracic spine fluid collection Additional Remarks c/o back pain Objective Data Data Vital Signs Date Time Temp Pulse Resp B/P (MAP) Pulse Ox O2 Delivery O2 Flow Rate FiO2 11/19/17 12:25 97.4 69 18 155/75 (101) 95 11/19/17 09:09 96 11/19/17 08:00 Nasal Cannula 2.00 11/19/17 08:00 64 11/19/17 07:35 98.1 64 20 137/82 (100) 96 11/19/17 04:00 Room Air 11/19/17 04:00 80 11/19/17 00:00 89 11/19/17 00:00 Room Air 11/19/17 00:00 97.9 79 19 145/75 (98) 95 11/18/17 21:54 98.0 68 145/75 (98) 97 11/18/17 21:26 95 11/18/17 21:00 84 11/18/17 20:00 Room Air 11/18/17 16:17 97.8 72 18 120/78 (92) 95 11/18/17 16:00 69 -: 11/17/17 0601 11/19/17 0639 Physical Exam General Appearance: Well Developed, Well Nourished Neck Neck Exam: Neck Supple Pulmonary Resp Exam: Clear Bilaterally, Breath Sounds Equal Cardiology CV Exam: Regular, Normal Sinus Rhythm Gastrointestinal/Abdomen GI Exam: Soft, Distended Extremeties Extremities Exam: No Edema Neurologic Neuro Exam: Alert, Awake, Oriented Assessment/Plan Problem List: (1) Acute renal failure ICD Codes: N17.9 - Acute kidney failure, unspecified Plan: Patient has developed acute tubular necrosis after receiving contrast studies and she was on IV vancomycin Patient is nonoliguric Last hemodialysis was on 11/13. Hemodialysis on hold Creatinine declining 2.93 K 5.3 Kayexalate ordered Follow BMP UOP increased check BMP in am Hold off hemodialysis asked her to drink water (2) Osteomyelitis ICD Codes: M86.9 - Osteomyelitis, unspecified Plan: Thoracic spine she is getting daptomycin (3) Bacteremia ICD Codes: R78.81 - Bacteremia (4) MRSA bacteremia ICD Codes: R78.81 - Bacteremia Status: Acute Plan: On daptomycin and ceftaroline (5) Chronic back pain ICD Codes: M54.9 - Dorsalgia, unspecified; G89.29 - Other chronic pain Status: Acute Plan: Possible osteomyelitis (6) COPD with acute exacerbation ICD Codes: J44.1 - Chronic obstructive pulmonary disease with (acute) exacerbation Status: Acute Plan: Continue with current treatment Problem Qualifiers (1) Acute renal failure: Qualified Codes: N17.0 - Acute kidney failure with tubular necrosis (2) Chronic back pain: Qualified Codes: M54.5 - Low back pain; G89.29 - Other chronic pain David Sales MD Nov 19, 2017 15:10
[2017-11-19] MEDS ORDERED: SODIUM POLYSTYRENE SULFONATE SUSP 15 GM/60 ML CUP PO ONE (15:15)
--- NOTE | 2017-11-19 15:47 | HHI.PR ---
Subjective Remarks Patient reports sweating episodes today. No other new issues. repeat blood cultures obtained per ID. Objective Vitals Vital Signs Date Time Temp Pulse Resp B/P (MAP) Pulse Ox O2 Delivery O2 Flow Rate FiO2 11/19/17 12:25 97.4 69 18 155/75 (101) 95 11/19/17 09:09 96 11/19/17 08:00 Nasal Cannula 2.00 11/19/17 08:00 64 11/19/17 07:35 98.1 64 20 137/82 (100) 96 11/19/17 04:00 Room Air 11/19/17 04:00 80 11/19/17 00:00 89 11/19/17 00:00 Room Air 11/19/17 00:00 97.9 79 19 145/75 (98) 95 11/18/17 21:54 98.0 68 145/75 (98) 97 11/18/17 21:26 95 11/18/17 21:00 84 11/18/17 20:00 Room Air 11/18/17 16:17 97.8 72 18 120/78 (92) 95 11/18/17 16:00 69 I/O 11/18/17 11/18/17 11/18/17 11/19/17 11/19/17 11/19/17 07:00 15:00 23:00 07:00 15:00 23:00 Intake Total 380 ml 580 ml 500 ml Balance 380 ml 580 ml 500 ml Intake Oral 380 ml 480 ml 500 ml IV Total 100 ml # Voids 3 4 3 # Bowel Movements 0 1 Result Diagram: 11/17/17 0601 11/19/17 0639 Objective Remarks GENERAL: Obese female in no apparent distress. CARDIOVASCULAR: Normal rate and regular rhythm without murmurs, gallops, or rubs. RESPIRATORY: Good respiratory efforts. Breath sounds equal and clear to auscultation bilaterally. GASTROINTESTINAL: Abdomen obese, soft, non-tender, non-distended. Normal active bowel sounds MUSCULOSKELETAL: Extremities without cyanosis, or edema. NEURO: Alert & Oriented x4 to person, place, time, situation. Moves all ext x4 PSYCH: Appropriate mood and affect. Procedures Echocardiogram 11/03/2017 The left ventricular systolic function is low normal with an estimated ejection fraction in the range of 50- 55%. Trace mitral valve regurgitation. There is trace tricuspid valve regurgitation. A/P Problem List: (1) COPD (chronic obstructive pulmonary disease) ICD Code: J44.9 - Chronic obstructive pulmonary disease Status: Chronic (2) Hypoxia ICD Code: R09.02 - Hypoxia Status: Acute (3) Chronic back pain ICD Code: M54.9 - Dorsalgia, unspecified; G89.29 - Other chronic pain Status: Acute (4) MRSA bacteremia ICD Code: R78.81 - Bacteremia Status: Acute Assessment and Plan 47-year-old female admitted secondary to an exacerbation of back pain suspected to be T11-T12 osteomyelitis, with persisting MRSA bacteremia. 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 To consider repeat MRI of the later this week. Continue daptomycin and Diflucan per infectious disease. Follow cultures. Repeat cultures today Acute kidney injury: Secondary to acute tubular necrosis contrast and vancomycin. Patient has developed acute tubular necrosis after receiving contrast studies and she was on IV vancomycin Appreciate nephrology following. Status post hemodialysis on 11/11. 11/13. Nonoliguric. Renal functions improving Vas-Cath Hemodialysis on hold per nephrology Follow BMP Avoid nephrotoxins Suspected pneumonia Completed course of Levaquin. Symptoms resolved. Hypertension Continue baseline treatment Follow blood pressures Adjust treatments as needed Continue nifedipine COPD continue DuoNeb, Symbicort, Mucinex. Continue to wean oral prednisone Chronic back pain continue Flexeril, Valium, hydromorphone as needed. DVT prophylaxis Lovenox Discharge Planning Continue IV Antibiotics per ID recs. Follow renal functions. Problem Qualifiers (1) Chronic back pain: Qualified Codes: M54.5 - Low back pain; G89.29 - Other chronic pain Lobo Quinones MD Nov 19, 2017 15:47
[2017-11-19 16:38] LABS: BILIRUBIN, URINE NEG (NEG); BLOOD, URINE MOD (NEG); GLUCOSE,URINE NEG (NEG); KETONE, URINE NEG (NEG); NITRITE,URINE NEG (NEG); SQUAMOUS EPITHELIAL CELL URINE 4 /hpf (0-5); URINE COLOR LIGHT-YELLOW (YELLW/STRAW); URINE LEUKOCYTE ESTERASE TRACE (NEG)
[2017-11-19] MEDS: MONTELUKAST SODIUM 10 MG TAB PO SCH (21:40)
[2017-11-20] VITALS (10 sets, daily range): BP systolic 128–145; BP diastolic 64–77; PULSE 63–84; RESP 16–20; TEMP 97.7–98.2; O2SAT 94–97
[2017-11-20] MEDS: CYCLOBENZAPRINE HCL 10 MG TAB PO PRN ×3 (03:20→19:02)
[2017-11-20] MEDS: HYDROmorphone HCL 4 MG TAB PO PRN ×6 (03:20→23:04)
[2017-11-20] MEDS: DIAZEPAM 5 MG TAB PO PRN ×4 (07:01→23:04)
[2017-11-20 07:37] LABS: HEMATOCRIT 29.5 % (35.0-46.0); HEMOGLOBIN 9.5 GM/DL (11.6-15.3); MEAN CELL VOLUME 74.8 FL (80.0-100.0); MEAN CORPUSCULAR HEMOGLOBIN 24.2 PG (27.0-34.0); MEAN CORPUSCULAR HGB CONC 32.3 % (32.0-36.0); MEAN PLATELET VOLUME 7.6 FL (7.0-11.0); PLATELET COUNT 177 TH/MM3 (150-450); RED BLOOD COUNT 3.94 MIL/MM3 (4.00-5.30); RED CELL DISTRIBUTION WIDTH 18.5 % (11.6-17.2); WHITE BLOOD COUNT 7.8 TH/MM3 (4.0-11.0)
[2017-11-20 08:05] LABS: BICARBONATE 30.2 MEQ/L (21.0-32.0); CALCIUM 8.7 MG/DL (8.5-10.1); CREATININE 2.91 MG/DL (0.50-1.00)
[2017-11-20] MEDS: predniSONE 10 MG TAB PO SCH ×2 (08:07→20:52)
[2017-11-20] MEDS: BENZONATATE 100 MG CAP PO SCH ×3 (08:07→16:57)
[2017-11-20] MEDS: DOCUSATE SODIUM 100 MG CAP PO SCH ×2 (08:07→20:52)
[2017-11-20] MEDS: LACTOBACILLUS ACIDOPHILUS TAB PO SCH ×3 (08:07→16:57)
[2017-11-20] MEDS: ASPIRIN 325 MG TAB PO SCH (08:07)
[2017-11-20] MEDS: DULoxetine HCl DR 30 MG CAP PO SCH (08:07)
[2017-11-20] MEDS: guaiFENesin E.R. 600 MG TAB PO SCH ×2 (08:07→20:52)
[2017-11-20] MEDS: FLUCONAZOLE 200 MG TAB PO SCH (08:07)
[2017-11-20] MEDS: NIFEdipine 60 MG SUSTAINED RELEASE TAB PO SCH (08:07)
[2017-11-20] MEDS: BUDESONIDE-FORMOTEROL 160/4.5 MCG INHALER INH SCH ×2 (08:09→23:06)
[2017-11-20] MEDS: SODIUM CHLORIDE 0.9% FLUSH 10 ML FLUSH IV FLUSH SCH ×3 (08:09→23:06)
--- NOTE | 2017-11-20 10:44 | HHI.PR ---
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 on Daptomycin and Diflucan, has Acute Kidney Injury and Nephrology specialist following, she developed Acute Tubular necrosis, after receiving contrast studies, was on IV Vancomycin, last hemodialysis 11/13, hemodialysis on Hold, Creatinine 2.91, potassium 4.9, Daptomycin and Diflucan. She has also Obesity, COPD, chronic back pain, MRI showed abnormal signal involving the dura in the lower thoracic and upper lumbar spine with heterogenous enhancement of T11 and T12 suggest underlying infectious process/osteomyelitis. No obvious epidural collection, BC (+) 10/31-11/04 Diane albicans (+) BC, likely line, removed 11/09 (originally placed 11/02), complete course of Levaquin for Pneumonia, Lung Nodules Multiple small parenchymal lung nodules noted on CT of the chest, recommended follow-up, ?emboli 11/20: Stable in her bedroom discussed with nurse and with manager line, no new issues. no nausea, vomit or diarrhea. Objective Vital Signs Date Time Temp Pulse Resp B/P (MAP) Pulse Ox O2 Delivery O2 Flow Rate FiO2 11/20/17 08:00 63 11/20/17 08:00 Room Air 11/20/17 07:50 97.7 68 20 135/73 (93) 97 11/20/17 04:00 98.0 73 18 145/71 (95) 95 11/20/17 04:00 71 11/20/17 00:05 70 11/20/17 00:00 98.1 71 17 134/77 (96) 95 11/19/17 20:41 76 11/19/17 20:00 Nasal Cannula 2.00 11/19/17 20:00 97.9 72 18 132/68 (89) 98 11/19/17 17:32 97 21 11/19/17 16:00 87 11/19/17 15:40 98.0 72 20 130/76 (94) 97 11/19/17 12:25 97.4 69 18 155/75 (101) 95 11/19/17 12:00 63 I/O 11/19/17 11/19/17 11/19/17 11/20/17 11/20/17 11/20/17 07:00 15:00 23:00 07:00 15:00 23:00 Intake Total 500 ml 720 ml 240 ml Output Total 600 ml 1400 ml Balance 500 ml 120 ml -1160 ml Intake Oral 500 ml 720 ml 240 ml Output Urine Total 600 ml 1400 ml # Voids 3 # Bowel Movements 0 Result Diagram: 11/20/17 0704 11/20/17 0704 Imaging Last Impressions Catheter Placement X-Ray 11/10/17 0600 Signed Impressions: Service Date/Time: Friday, November 10, 2017 08:52 - CONCLUSION: Uncomplicated line placement as above. Rip Camarillo MD Central Venous Line 11/09/17 0000 Signed Impressions: Service Date/Time: Thursday, November 09, 2017 00:00 - CONCLUSION: Uncomplicated catheter removal. Rip Camarillo MD Chest CT 11/03/17 0000 Signed Impressions: Service Date/Time: Friday, November 03, 2017 22:37 - CONCLUSION: Minimal effusions. Mild basilar atelectasis. Patchy areas of minimal airspace infiltrate. Multiple small parenchymal lung nodules which should be followed Domenic Pulido MD Abdomen/Pelvis CT 11/03/17 0000 Signed Impressions: Service Date/Time: Friday, November 03, 2017 22:37 - CONCLUSION: 1. Small bilateral pleural effusions with mild basilar atelectasis the lungs. No acute findings within the abdomen and pelvis. Moderate constipation of the right colon. Melchor Caceres MD Thoracic Spine MRI 11/01/17 0000 Signed Impressions: Service Date/Time: Wednesday, November 01, 2017 17:21 - CONCLUSION: There is heterogeneous enhancement T11 and T12 with surrounding perivertebral edema and dural enhancement anterior and posterior to the cord. A well-defined mass is not seen. Intervertebral disc signal intensity is normal without enhancement to suggest discitis, however an osteomyelitis or other underlying infectious process should be excluded. Valente Prasad MD Lumbar Spine X-Ray 11/01/17 0000 Signed Impressions: Service Date/Time: Wednesday, November 01, 2017 18:18 - CONCLUSION: No acute disease. Valente Prasad MD Lumbar Spine MRI 11/01/17 0000 Signed Impressions: Service Date/Time: Wednesday, November 01, 2017 17:21 - CONCLUSION: Abnormal signal involving the dura in the lower thoracic and upper lumbar spine with heterogeneous enhancement of T11 and T12 suggest underlying infectious process/osteomyelitis. No obvious epidural collections at this time.. Valente Prasad MD Chest X-Ray 10/30/172031 Signed Impressions: Service Date/Time: Monday, October 30, 2017 21:48 - CONCLUSION: No acute disease. Domenic Davis MD Procedures Echocardiogram 11/03/2017 The left ventricular systolic function is low normal with an estimated ejection fraction in the range of 50- 55%. Trace mitral valve regurgitation. There is trace tricuspid valve regurgitation. Other Results Laboratory Tests Test 11/02/17 10:41 11/02/17 11:00 11/05/17 05:45 11/06/17 05:40 Erythrocyte Sedimentation Rate 38 mm/hr Lactic Acid Level 1.0 mmol/L Blood Urea Nitrogen 46 MG/DL Creatinine 1.33 MG/DL Random Glucose 111 MG/DL Total Protein 6.0 GM/DL Albumin 1.9 GM/DL Calcium Level 7.8 MG/DL Alkaline Phosphatase 88 U/L Aspartate Amino Transf (AST/SGOT) 24 U/L Alanine Aminotransferase (ALT/SGPT) 16 U/L Total Bilirubin 0.4 MG/DL Direct Bilirubin 0.1 MG/DL Sodium Level 135 MEQ/L Potassium Level 4.3 MEQ/L Chloride Level 99 MEQ/L Carbon Dioxide Level 26.3 MEQ/L Indirect Bilirubin 0.3 MG/DL C-Reactive Protein 4.81 MG/DL Vancomycin Level Trough 30.1 MCG/ML Keratocytes OCC Random Vancomycin Level 35.7 COMMENT Test 11/07/17 05:40 11/08/17 05:35 11/09/17 05:20 11/09/17 10:30 Myelocytes 2 % Protein Corrected Calcium 8.3 MG/DL Red Cell Morphology Comment NORMAL Differential Total Cells Counted 100 Neutrophils % (Manual) 86 % Band Neutrophils % 2 % Lymphocytes % 7 % Monocytes % 2 % Eosinophils % 2 % Neutrophils # (Manual) 10.0 TH/MM3 Metamyelocytes 1 % Toxic Granulation 2+ Toxic Vacuolation PRESENT Platelet Estimate NORMAL Platelet Morphology Comment NORMAL Ovalocytes 1+ Blood Urea Nitrogen 81 MG/DL Creatinine 4.80 MG/DL Random Glucose 66 MG/DL Total Protein 5.9 GM/DL Albumin 2.1 GM/DL Calcium Level 8.2 MG/DL Phosphorus Level 7.0 MG/DL Magnesium Level 2.7 MG/DL Alkaline Phosphatase 71 U/L Aspartate Amino Transf (AST/SGOT) 24 U/L Alanine Aminotransferase (ALT/SGPT) 23 U/L Total Bilirubin 0.5 MG/DL Sodium Level 137 MEQ/L Potassium Level 5.6 MEQ/L Chloride Level 106 MEQ/L Carbon Dioxide Level 20.8 MEQ/L Urine Uric Acid Crystals MANY /hpf Urine Bacteria FEW /hpf Urine Granular Casts 2 /lpf Urine Eosinophils NONE SEEN /HPF Urine Osmolality 412 MOSM/KG Urine Random Creatinine 67.6 MG/DL Urine Random Sodium 68 MEQ/L Test 11/10/17 05:25 11/10/17 14:40 11/11/17 14:00 11/12/17 13:56 Prothrombin Time 10.0 SEC Prothromb Time International Ratio 1.0 RATIO Activated Partial Thromboplast Time 28.7 SEC Hepatitis A IgM Antibody NONREACTIVE Hepatitis B Surface Antigen NONREACTIVE Hepatitis B Core IgM Antibody NONREACTIVE Hepatitis C IgG Antibody INDETERMINATE Stool C. difficile Toxin (PCR) NEGATIVE Stl C. difficile Toxin Epiderm 027 PRESUMPTIVE NEGATIVE Neutrophils (%) (Auto) 90.9 % Lymphocytes (%) (Auto) 5.4 % Monocytes (%) (Auto) 2.5 % Eosinophils (%) (Auto) 0.5 % Basophils (%) (Auto) 0.7 % Neutrophils # (Auto) 11.3 TH/MM3 Lymphocytes # (Auto) 0.7 TH/MM3 Monocytes # (Auto) 0.3 TH/MM3 Eosinophils # (Auto) 0.1 TH/MM3 Basophils # (Auto) 0.1 TH/MM3 CBC Comment DIFF FINAL Differential Comment Blood Urea Nitrogen 32 MG/DL Creatinine 3.39 MG/DL Random Glucose 134 MG/DL Total Protein 6.5 GM/DL Albumin 2.5 GM/DL Calcium Level 8.9 MG/DL Alkaline Phosphatase 85 U/L Aspartate Amino Transf (AST/SGOT) 14 U/L Alanine Aminotransferase (ALT/SGPT) 23 U/L Total Bilirubin 0.3 MG/DL Sodium Level 136 MEQ/L Potassium Level 4.1 MEQ/L Chloride Level 97 MEQ/L Carbon Dioxide Level 31.8 MEQ/L Test 11/16/17 06:10 11/18/17 07:20 11/19/17 15:50 11/20/17 07:04 Total Creatine Kinase 13 U/L Blood Urea Nitrogen 60 MG/DL 57 MG/DL Creatinine 3.28 MG/DL 2.91 MG/DL Random Glucose 84 MG/DL 114 MG/DL Albumin 2.8 GM/DL Calcium Level 8.8 MG/DL 8.7 MG/DL Phosphorus Level 4.5 MG/DL Sodium Level 138 MEQ/L 138 MEQ/L Potassium Level 4.7 MEQ/L 4.9 MEQ/L Chloride Level 98 MEQ/L 100 MEQ/L Carbon Dioxide Level 33.0 MEQ/L 30.2 MEQ/L Urine Color LIGHT-YELLOW Urine Turbidity CLEAR Urine pH 6.0 Urine Specific [place] 1.010 Urine Protein TRACE mg/dL Urine Glucose (UA) NEG mg/dL Urine Ketones NEG mg/dL Urine Occult Blood MOD Urine Nitrite NEG Urine Bilirubin NEG Urine Urobilinogen LESS THAN 2.0 MG/DL Urine Leukocyte Esterase TRACE Urine RBC 22 /hpf Urine WBC 3 /hpf Urine Squamous Epithelial Cells 4 /hpf Microscopic Urinalysis Comment CULT NOT INDICATED White Blood Count 7.8 TH/MM3 Red Blood Count 3.94 MIL/MM3 Hemoglobin 9.5 GM/DL Hematocrit 29.5 % Mean Corpuscular Volume 74.8 FL Mean Corpuscular Hemoglobin 24.2 PG Mean Corpuscular Hemoglobin Concent 32.3 % Red Cell Distribution Width 18.5 % Platelet Count 177 TH/MM3 Mean Platelet Volume 7.6 FL Anion Gap 8 MEQ/L Estimat Glomerular Filtration Rate 17 ML/MIN Objective Remarks GENERAL: Obese female in no apparent distress. CARDIOVASCULAR: Normal rate and regular rhythm without murmurs, gallops, or rubs. RESPIRATORY: Good respiratory efforts. Breath sounds equal and clear to auscultation bilaterally. GASTROINTESTINAL: Abdomen obese, soft, non-tender, non-distended. Normal active bowel sounds MUSCULOSKELETAL: Extremities without cyanosis, or edema. NEURO: Alert & Oriented x4 to person, place, time, situation. Moves all ext x4 PSYCH: Appropriate mood and affect. Medications and IVs Current Medications Medications (Trade) Dose Ordered Sig/Juanpablo Route Start Time Stop Time Status Last Admin (Duoneb Neb) 1 ampule Q2HR NEB PRN NEB 10/30/17 22:45 (Mucinex Er) 600 mg BID PO 10/31/17 09:00 11/20/17 08:07 (NS Flush) 2 ml UNSCH PRN IV FLUSH 10/30/17 22:45 11/10/17 05:25 (NS Flush) 2 ml BID IV FLUSH 10/31/17 09:00 11/20/17 08:09 (Zofran Inj) 4 mg Q6H PRN IVP 10/30/17 22:45 (Tylenol) 650 mg Q6H PRN PO 10/30/17 22:45 10/31/17 07:11 (Milk Of Magnesia Liq) 30 ml Q12H PRN PO 10/30/17 22:45 (Senokot) 17.2 mg Q12H PRN PO 10/30/17 22:45 10/31/17 07:41 (Dulcolax Supp) 10 mg DAILY PRN RECTAL 10/30/17 22:45 (Lactulose Liq) 30 ml DAILY PRN PO 10/30/17 22:45 (Aspirin) 325 mg DAILY PO 10/31/17 09:00 11/20/17 08:07 (Symbicort 160-4.5 Mcg Inh) 2 puff Q12HR INH 10/31/17 09:00 11/20/17 08:09 (Cymbalta Dr) 30 mg DAILY PO 10/31/17 09:00 11/20/17 08:07 (Dilaudid) 4 mg Q4H PRN PO 10/30/17 22:45 11/20/17 07:00 (Singulair) 10 mg HS PO 10/31/17 21:00 11/19/17 21:40 (Valium) 5 mg Q8H PRN PO 10/30/17 23:00 11/20/17 07:01 (Tessalon) 100 mg TID PO 10/31/17 13:00 11/20/17 08:07 (Flexeril) 5 mg Q8H PRN PO 10/31/17 10:45 11/20/17 03:20 (Lovenox Inj) 30 mg Q24H SQ 10/31/17 11:00 11/19/17 11:13 (Pill Splitter) 1 ea UNSCH PRN OTHER 10/31/17 11:00 (NS Flush) DAILY IV FLUSH 11/03/17 09:00 11/20/17 08:09 (NS Flush) UNSCH PRN IV FLUSH 11/02/17 14:15 (Dilaudid Pf Inj) 0.5 mg Q3H PRN IV PUSH 11/04/17 16:15 (Colace) 100 mg BID PO 11/04/17 21:00 11/20/17 08:07 (Catapres) 0.1 mg Q6H PRN PO 11/04/17 13:45 11/10/17 20:55 (Procardia Xl) 60 mg DAILY PO 11/06/17 09:00 11/20/17 08:07 Daptomycin 970 mg/ Sodium Chloride 100 ml @ 200 mls/hr Q48H IV 11/08/17 21:00 11/18/17 21:00 (NS Flush) UNSCH PRN IV FLUSH 11/10/17 09:45 (Heparin Inj) UNSCH PRN IV FLUSH 11/10/17 09:45 11/13/17 15:16 (Lactinex) 1 tab TID PO 11/10/17 13:00 11/20/17 08:07 Sodium Chloride 1,000 ml @ 0 mls/hr Q0M PRN OTHER 11/10/17 11:38 (Heparin Inj) 8,000 units UNSCH PRN IV FLUSH 11/10/17 11:45 Sodium Chloride 1,000 ml @ 200 mls/hr Q5H PRN IV 11/10/17 11:38 Sodium Chloride 1,000 ml @ 0 mls/hr Q0M PRN OTHER 11/10/17 11:38 (Mannitol Inj) 12.5 gm UNSCH PRN IV 11/10/17 11:45 Albumin Human 100 ml @ 60 mls/hr UNSCH PRN IV 11/10/17 11:45 (NS Flush) 5 ml UNSCH PRN IV FLUSH 11/10/17 11:45 (Heparin Inj) UNSCH PRN .XX 11/10/17 11:45 11/11/17 18:10 (Gentamicin Inj) 20 mg UNSCH PRN OTHER 11/10/17 11:45 11/13/17 15:17 (Zofran Inj) 4 mg UNSCH PRN IV PUSH 11/10/17 11:45 11/13/17 14:30 (Tylenol) 650 mg UNSCH PRN PO 11/10/17 11:45 (Benadryl) 25 mg UNSCH PRN PO 11/10/17 11:45 (Nitrostat Sl) 0.4 mg UNSCH PRN SL 11/10/17 11:45 (Catapres) 0.1 mg UNSCH PRN PO 11/10/17 11:45 (Epogen Inj) 4,000 units UNSCH PRN IV PUSH 11/10/17 11:45 11/11/17 18:10 (Gelfoam 12 Mm/7 Mm Top) 1 foam UNSCH PRN TOP 11/10/17 11:45 (Diflucan) 200 mg DAILY PO 11/12/17 09:00 11/20/17 08:07 (Deltasone) 10 mg BID PO 11/16/17 21:00 11/20/17 08:07 A/P Assessment and Plan (1) COPD (chronic obstructive pulmonary disease) ICD Code: J44.9 - Chronic obstructive pulmonary disease Status: Chronic (2) Hypoxia ICD Code: R09.02 - Hypoxia Status: Acute (3) Chronic back pain ICD Code: M54.9 - Dorsalgia, unspecified; G89.29 - Other chronic pain Status: Acute (4) MRSA bacteremia ICD Code: R78.81 - Bacteremia Status: Acute 47-year-old female admitted secondary to an exacerbation of back pain suspected to be T11-T12 osteomyelitis, with persisting MRSA bacteremia. 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 To consider repeat MRI of the later this week. Continue daptomycin and Diflucan per infectious disease. Follow cultures. Repeat cultures today MRI showed abnormal signal involving the dura in the lower thoracic and upper lumbar spine with heterogenous enhancement of T11 and T12 suggest underlying infectious process/osteomyelitis. No obvious epidural collection, BC (+) 10/31-11/04 Diane albicans (+) BC, likely line, removed 11/09 (originally placed 11/02), complete course of Levaquin for Pneumonia, Lung Nodules Multiple small parenchymal lung nodules noted on CT of the chest, recommended follow-up, ?emboli Acute kidney injury: Secondary to acute tubular necrosis contrast and vancomycin. Patient has developed acute tubular necrosis after receiving contrast studies and she was on IV vancomycin Appreciate nephrology following. Status post hemodialysis on 11/11. 11/13. Nonoliguric. Renal functions improving Vas-Cath Hemodialysis on hold per nephrology Follow BMP Avoid nephrotoxins Suspected pneumonia Completed course of Levaquin. Symptoms resolved. Hypertension Continue baseline treatment Follow blood pressures Adjust treatments as needed Continue nifedipine COPD continue DuoNeb, Symbicort, Mucinex. Continue to wean oral prednisone Obesity Strongly recommended diet and exercise as outpatient Chronic back pain continue Flexeril, Valium, hydromorphone as needed. DVT prophylaxis Lovenox Discharge Planning Continue IV Antibiotics per ID recs. Follow renal functions. Rayo Deluca MD Nov 20, 2017 10:44
[2017-11-20] MEDS: ENOXAPARIN SODIUM 30 MG/0.3 ML SYRINGE SQ SCH (11:08)
--- NOTE | 2017-11-20 16:14 | HHI.NPPN ---
Subjective History of Present Illness 47 year old with sepsis now with ARF, thoracic spine fluid collection Additional Remarks c/o back pain Objective Data Data Vital Signs Date Time Temp Pulse Resp B/P (MAP) Pulse Ox O2 Delivery O2 Flow Rate FiO2 11/20/17 12:05 98.2 76 20 140/72 (94) 95 11/20/17 12:00 79 11/20/17 08:00 63 11/20/17 08:00 Room Air 11/20/17 07:50 97.7 68 20 135/73 (93) 97 11/20/17 04:00 98.0 73 18 145/71 (95) 95 11/20/17 04:00 71 11/20/17 00:05 70 11/20/17 00:00 98.1 71 17 134/77 (96) 95 11/19/17 20:41 76 11/19/17 20:00 Nasal Cannula 2.00 11/19/17 20:00 97.9 72 18 132/68 (89) 98 11/19/17 17:32 97 21 -: 11/20/17 0704 11/20/17 0704 Physical Exam General Appearance: Well Developed, Well Nourished Neck Neck Exam: Neck Supple Pulmonary Resp Exam: Clear Bilaterally, Breath Sounds Equal Cardiology CV Exam: Regular, Normal Sinus Rhythm Gastrointestinal/Abdomen GI Exam: Soft, Distended Extremeties Extremities Exam: No Edema Neurologic Neuro Exam: Alert, Awake, Oriented Assessment/Plan Problem List: (1) Acute renal failure ICD Codes: N17.9 - Acute kidney failure, unspecified Plan: Patient has developed acute tubular necrosis after receiving contrast studies and she was on IV vancomycin Patient is nonoliguric Last hemodialysis was on 11/13. Hemodialysis on hold dc vascath Creatinine declining 2.91 K 4.9 Follow BMP UOP increased check BMP in am Hold off hemodialysis asked her to drink water (2) Osteomyelitis ICD Codes: M86.9 - Osteomyelitis, unspecified Plan: Thoracic spine she is getting daptomycin (3) Bacteremia ICD Codes: R78.81 - Bacteremia (4) MRSA bacteremia ICD Codes: R78.81 - Bacteremia Status: Acute Plan: On daptomycin and ceftaroline (5) Chronic back pain ICD Codes: M54.9 - Dorsalgia, unspecified; G89.29 - Other chronic pain Status: Acute Plan: Possible osteomyelitis (6) COPD with acute exacerbation ICD Codes: J44.1 - Chronic obstructive pulmonary disease with (acute) exacerbation Status: Acute Plan: Continue with current treatment Problem Qualifiers (1) Acute renal failure: Qualified Codes: N17.0 - Acute kidney failure with tubular necrosis (2) Chronic back pain: Qualified Codes: M54.5 - Low back pain; G89.29 - Other chronic pain David Sales MD Nov 20, 2017 16:14
--- NOTE | 2017-11-20 17:23 | RADRPT ---
EXAM DATE/TIME: 11/20/2017 00:00 [facility] COMPARISON: No previous studies available for comparison. INDICATIONS : Dialysis catheter no longer needed, catheter removed. MEDICAL HISTORY : COPD Anxiety Depression Chronic back pain SURGICAL HISTORY : Left elbow surgery Tonsillectomy ENCOUNTER: Initial ACUITY: 2 weeks PAIN SCORE: 0/10 neck IMAGE SERIES: PROCEDURE : 1. Temporary central venous catheter removal. The prescribed catheter was removed intact and hemostasis was achieved with direct pressure. The sit e was dressed appropriately. The patient tolerated the procedure well. CONCLUSION: Uncomplicated central venous catheter removal. Domenic Pulido MD on November 20, 2017 at 17:04 Board Certified Radiologist. This report was verified electronically.
[2017-11-20] MEDS: MONTELUKAST SODIUM 10 MG TAB PO SCH (20:52)
[2017-11-20] MEDS: SODIUM CHLORIDE 0.9% IV SCH (23:04)
[2017-11-20] MEDS: DAPTOMYCIN IV SCH (23:04)
[2017-11-21] VITALS: BP 135/67; PULSE 74; PULSE 76; RESP 16; TEMP 98.4; O2SAT 96
[2017-11-21] MEDS: HYDROmorphone HCL 4 MG TAB PO PRN ×6 (03:00→22:53)
[2017-11-21] MEDS: CYCLOBENZAPRINE HCL 10 MG TAB PO PRN ×3 (03:01→18:53)
[2017-11-21 04:00] VITALS: BP 135/76; PULSE 69; PULSE 70; RESP 16; TEMP 97.9; O2SAT 98
[2017-11-21] MEDS: DIAZEPAM 5 MG TAB PO PRN ×3 (06:54→22:53)
[2017-11-21 08:00] VITALS: BP 147/85; PULSE 66; PULSE 70; RESP 20; TEMP 98; O2SAT 97
[2017-11-21 08:38] LABS: BICARBONATE 29.7 MEQ/L (21.0-32.0); CREATININE 2.49 MG/DL (0.50-1.00); PHOSPHORUS 5.2 MG/DL (2.5-4.9)
[2017-11-21] MEDS: SODIUM CHLORIDE 0.9% FLUSH 10 ML FLUSH IV FLUSH SCH ×3 (09:00→20:56)
[2017-11-21] MEDS: DOCUSATE SODIUM 100 MG CAP PO SCH ×2 (09:23→20:57)
[2017-11-21] MEDS: guaiFENesin E.R. 600 MG TAB PO SCH ×2 (09:23→20:57)
[2017-11-21] MEDS: NIFEdipine 60 MG SUSTAINED RELEASE TAB PO SCH (09:24)
[2017-11-21] MEDS: BENZONATATE 100 MG CAP PO SCH ×3 (09:24→18:53)
[2017-11-21] MEDS: LACTOBACILLUS ACIDOPHILUS TAB PO SCH ×3 (09:24→18:53)
[2017-11-21] MEDS: predniSONE 10 MG TAB PO SCH ×2 (09:24→20:57)
[2017-11-21] MEDS: ASPIRIN 325 MG TAB PO SCH (09:24)
[2017-11-21] MEDS: FLUCONAZOLE 200 MG TAB PO SCH (09:25)
[2017-11-21] MEDS: DULoxetine HCl DR 30 MG CAP PO SCH (09:25)
[2017-11-21] MEDS: BUDESONIDE-FORMOTEROL 160/4.5 MCG INHALER INH SCH ×2 (09:25→20:57)
[2017-11-21] MEDS: ENOXAPARIN SODIUM 30 MG/0.3 ML SYRINGE SQ SCH (10:59)
[2017-11-21 12:00] VITALS: BP 158/88; PULSE 69; PULSE 71; RESP 20; TEMP 97.8; O2SAT 97
--- NOTE | 2017-11-21 13:41 | HHI.NPPN ---
Subjective History of Present Illness 47 year old with sepsis now with ARF, thoracic spine fluid collection Additional Remarks Patient is resting comfortably eating breakfast. Reports that edema is improving. (Ly Brandt) Review of Systems Respiratory Lungs: SOB Respiratory Remarks Chronic SOB (Ly Brandt) Objective Data Data Vital Signs Date Time Temp Pulse Resp B/P (MAP) Pulse Ox O2 Delivery O2 Flow Rate FiO2 11/21/17 08:00 98.0 70 20 147/85 (105) 97 11/21/17 04:00 97.9 69 16 135/76 (95) 98 11/21/17 04:00 70 11/21/17 00:00 98.4 76 16 135/67 (89) 96 11/21/17 00:00 74 11/20/17 21:00 Room Air 11/20/17 20:00 73 11/20/17 20:00 98.0 77 16 131/64 (86) 94 11/20/17 16:15 97.8 79 18 128/74 (92) 94 11/20/17 16:00 84 (Ly Brandt) -: 11/20/17 0704 11/21/17 0755 Physical Exam General Appearance: Well Developed, Well Nourished (Ly Brandt) Neck Neck Exam: Neck Supple (Ly Brandt) Pulmonary Resp Exam: Clear Bilaterally, Breath Sounds Equal (Ly Brandt) Cardiology CV Exam: Regular, Normal Sinus Rhythm (Ly Brandt) Gastrointestinal/Abdomen GI Exam: Soft, Distended (Ly Brandt) Extremeties Extremities Exam: No Edema (Ly Brandt) Neurologic Neuro Exam: Alert, Awake, Oriented (Ly Brandt) Assessment/Plan Problem List: (1) Acute renal failure ICD Codes: N17.9 - Acute kidney failure, unspecified Plan: Patient has developed acute tubular necrosis after receiving contrast studies and she was on IV vancomycin Patient is nonoliguric Last hemodialysis was on 11/13. Hemodialysis on hold Creatinine improving at 2.49 from 2.91 K 4.9 Follow BMP and urinary output. Hemodialysis is on hold. (2) Osteomyelitis ICD Codes: M86.9 - Osteomyelitis, unspecified Plan: Thoracic spine she is getting daptomycin (3) Bacteremia ICD Codes: R78.81 - Bacteremia (4) MRSA bacteremia ICD Codes: R78.81 - Bacteremia Status: Acute Plan: On daptomycin and ceftaroline (5) Chronic back pain ICD Codes: M54.9 - Dorsalgia, unspecified; G89.29 - Other chronic pain Status: Acute Plan: Possible osteomyelitis (6) COPD with acute exacerbation ICD Codes: J44.1 - Chronic obstructive pulmonary disease with (acute) exacerbation Status: Acute Plan: Continue with current treatment (Ly Brandt) Problem List: (1) Acute renal failure ICD Codes: N17.9 - Acute kidney failure, unspecified Plan: Patient has developed acute tubular necrosis after receiving contrast studies and she was on IV vancomycin Patient is nonoliguric Last hemodialysis was on 11/13. Hemodialysis on hold Creatinine improving at 2.49 from 2.91 K 4.9 Follow BMP and urinary output. Hemodialysis is on hold. Patient seen and examined, agree with above. Follow the urine out put and BMP. (2) Osteomyelitis ICD Codes: M86.9 - Osteomyelitis, unspecified Plan: Thoracic spine she is getting daptomycin (3) Bacteremia ICD Codes: R78.81 - Bacteremia (4) MRSA bacteremia ICD Codes: R78.81 - Bacteremia Status: Acute Plan: On daptomycin and ceftaroline (5) Chronic back pain ICD Codes: M54.9 - Dorsalgia, unspecified; G89.29 - Other chronic pain Status: Acute Plan: Possible osteomyelitis (6) COPD with acute exacerbation ICD Codes: J44.1 - Chronic obstructive pulmonary disease with (acute) exacerbation Status: Acute Plan: Continue with current treatment (Darnell Lopez MD) Problem Qualifiers (1) Acute renal failure: Qualified Codes: N17.0 - Acute kidney failure with tubular necrosis (2) Chronic back pain: Qualified Codes: M54.5 - Low back pain; G89.29 - Other chronic pain Ly Brandt Nov 21, 2017 13:41 Darnell Lopez MD Nov 22, 2017 14:41
[2017-11-21 16:00] VITALS: BP 162/92; PULSE 71; PULSE 79; RESP 20; TEMP 97.9; O2SAT 95
--- NOTE | 2017-11-21 16:56 | HHI.PR ---
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 on Daptomycin and Diflucan, has Acute Kidney Injury and Nephrology specialist following, she developed Acute Tubular necrosis, after receiving contrast studies, was on IV Vancomycin, last hemodialysis 11/13, hemodialysis on Hold, Creatinine 2.91, potassium 4.9, Daptomycin and Diflucan. She has also Obesity, COPD, chronic back pain, MRI showed abnormal signal involving the dura in the lower thoracic and upper lumbar spine with heterogenous enhancement of T11 and T12 suggest underlying infectious process/osteomyelitis. No obvious epidural collection, BC (+) 10/31-11/04 Diane albicans (+) BC, likely line, removed 11/09 (originally placed 11/02), complete course of Levaquin for Pneumonia, Lung Nodules Multiple small parenchymal lung nodules noted on CT of the chest, recommended follow-up, ?emboli 11/21: Seen in her bedroom, no complaint, no nausea, vomit or diarrhea. new Creatinine 2.49 on hold HD. Objective Vital Signs Date Time Temp Pulse Resp B/P (MAP) Pulse Ox O2 Delivery O2 Flow Rate FiO2 11/21/17 08:00 98.0 70 20 147/85 (105) 97 11/21/17 04:00 97.9 69 16 135/76 (95) 98 11/21/17 04:00 70 11/21/17 00:00 98.4 76 16 135/67 (89) 96 11/21/17 00:00 74 11/20/17 21:00 Room Air 11/20/17 20:00 73 11/20/17 20:00 98.0 77 16 131/64 (86) 94 I/O 11/20/17 11/20/17 11/20/17 11/21/17 11/21/17 11/21/17 07:00 15:00 23:00 07:00 15:00 23:00 Intake Total 240 ml 840 ml 1440 ml Output Total 1400 ml 500 ml Balance -1160 ml 340 ml 1440 ml Intake Oral 240 ml 840 ml 1440 ml Output Urine Total 1400 ml 500 ml # Voids 4 # Bowel Movements 0 1 Result Diagram: 11/20/17 0704 11/21/17 0755 Imaging Last Impressions Central Venous Line 11/20/17 0000 Signed Impressions: Service Date/Time: Monday, November 20, 2017 00:00 - CONCLUSION: Uncomplicated central venous catheter removal. Domenic Pulido MD Catheter Placement X-Ray 11/10/17 0600 Signed Impressions: Service Date/Time: Friday, November 10, 2017 08:52 - CONCLUSION: Uncomplicated line placement as above. Rip Camarillo MD Chest CT 11/03/17 0000 Signed Impressions: Service Date/Time: Friday, November 03, 2017 22:37 - CONCLUSION: Minimal effusions. Mild basilar atelectasis. Patchy areas of minimal airspace infiltrate. Multiple small parenchymal lung nodules which should be followed Domenic Pulido MD Abdomen/Pelvis CT 11/03/17 0000 Signed Impressions: Service Date/Time: Friday, November 03, 2017 22:37 - CONCLUSION: 1. Small bilateral pleural effusions with mild basilar atelectasis the lungs. No acute findings within the abdomen and pelvis. Moderate constipation of the right colon. Melchor Caceres MD Thoracic Spine MRI 11/01/17 0000 Signed Impressions: Service Date/Time: Wednesday, November 01, 2017 17:21 - CONCLUSION: There is heterogeneous enhancement T11 and T12 with surrounding perivertebral edema and dural enhancement anterior and posterior to the cord. A well-defined mass is not seen. Intervertebral disc signal intensity is normal without enhancement to suggest discitis, however an osteomyelitis or other underlying infectious process should be excluded. Valente Prasad MD Lumbar Spine X-Ray 11/01/17 0000 Signed Impressions: Service Date/Time: Wednesday, November 01, 2017 18:18 - CONCLUSION: No acute disease. Valente Prasad MD Lumbar Spine MRI 11/01/17 0000 Signed Impressions: Service Date/Time: Wednesday, November 01, 2017 17:21 - CONCLUSION: Abnormal signal involving the dura in the lower thoracic and upper lumbar spine with heterogeneous enhancement of T11 and T12 suggest underlying infectious process/osteomyelitis. No obvious epidural collections at this time.. Valente Prasad MD Chest X-Ray 10/30/172031 Signed Impressions: Service Date/Time: Monday, October 30, 2017 21:48 - CONCLUSION: No acute disease. Domenic Davis MD Procedures Echocardiogram 11/03/2017 The left ventricular systolic function is low normal with an estimated ejection fraction in the range of 50- 55%. Trace mitral valve regurgitation. There is trace tricuspid valve regurgitation. Other Results Laboratory Tests Test 11/02/17 10:41 11/02/17 11:00 11/05/17 05:45 11/06/17 05:40 Erythrocyte Sedimentation Rate 38 mm/hr Lactic Acid Level 1.0 mmol/L Blood Urea Nitrogen 46 MG/DL Creatinine 1.33 MG/DL Random Glucose 111 MG/DL Total Protein 6.0 GM/DL Albumin 1.9 GM/DL Calcium Level 7.8 MG/DL Alkaline Phosphatase 88 U/L Aspartate Amino Transf (AST/SGOT) 24 U/L Alanine Aminotransferase (ALT/SGPT) 16 U/L Total Bilirubin 0.4 MG/DL Direct Bilirubin 0.1 MG/DL Sodium Level 135 MEQ/L Potassium Level 4.3 MEQ/L Chloride Level 99 MEQ/L Carbon Dioxide Level 26.3 MEQ/L Indirect Bilirubin 0.3 MG/DL C-Reactive Protein 4.81 MG/DL Vancomycin Level Trough 30.1 MCG/ML Keratocytes OCC Random Vancomycin Level 35.7 COMMENT Test 11/07/17 05:40 11/08/17 05:35 11/09/17 05:20 11/09/17 10:30 Myelocytes 2 % Protein Corrected Calcium 8.3 MG/DL Red Cell Morphology Comment NORMAL Differential Total Cells Counted 100 Neutrophils % (Manual) 86 % Band Neutrophils % 2 % Lymphocytes % 7 % Monocytes % 2 % Eosinophils % 2 % Neutrophils # (Manual) 10.0 TH/MM3 Metamyelocytes 1 % Toxic Granulation 2+ Toxic Vacuolation PRESENT Platelet Estimate NORMAL Platelet Morphology Comment NORMAL Ovalocytes 1+ Blood Urea Nitrogen 81 MG/DL Creatinine 4.80 MG/DL Random Glucose 66 MG/DL Total Protein 5.9 GM/DL Albumin 2.1 GM/DL Calcium Level 8.2 MG/DL Phosphorus Level 7.0 MG/DL Magnesium Level 2.7 MG/DL Alkaline Phosphatase 71 U/L Aspartate Amino Transf (AST/SGOT) 24 U/L Alanine Aminotransferase (ALT/SGPT) 23 U/L Total Bilirubin 0.5 MG/DL Sodium Level 137 MEQ/L Potassium Level 5.6 MEQ/L Chloride Level 106 MEQ/L Carbon Dioxide Level 20.8 MEQ/L Urine Uric Acid Crystals MANY /hpf Urine Bacteria FEW /hpf Urine Granular Casts 2 /lpf Urine Eosinophils NONE SEEN /HPF Urine Osmolality 412 MOSM/KG Urine Random Creatinine 67.6 MG/DL Urine Random Sodium 68 MEQ/L Test 11/10/17 05:25 11/10/17 14:40 11/11/17 14:00 11/12/17 13:56 Prothrombin Time 10.0 SEC Prothromb Time International Ratio 1.0 RATIO Activated Partial Thromboplast Time 28.7 SEC Hepatitis A IgM Antibody NONREACTIVE Hepatitis B Surface Antigen NONREACTIVE Hepatitis B Core IgM Antibody NONREACTIVE Hepatitis C IgG Antibody INDETERMINATE Stool C. difficile Toxin (PCR) NEGATIVE Stl C. difficile Toxin Epiderm 027 PRESUMPTIVE NEGATIVE Neutrophils (%) (Auto) 90.9 % Lymphocytes (%) (Auto) 5.4 % Monocytes (%) (Auto) 2.5 % Eosinophils (%) (Auto) 0.5 % Basophils (%) (Auto) 0.7 % Neutrophils # (Auto) 11.3 TH/MM3 Lymphocytes # (Auto) 0.7 TH/MM3 Monocytes # (Auto) 0.3 TH/MM3 Eosinophils # (Auto) 0.1 TH/MM3 Basophils # (Auto) 0.1 TH/MM3 CBC Comment DIFF FINAL Differential Comment Blood Urea Nitrogen 32 MG/DL Creatinine 3.39 MG/DL Random Glucose 134 MG/DL Total Protein 6.5 GM/DL Albumin 2.5 GM/DL Calcium Level 8.9 MG/DL Alkaline Phosphatase 85 U/L Aspartate Amino Transf (AST/SGOT) 14 U/L Alanine Aminotransferase (ALT/SGPT) 23 U/L Total Bilirubin 0.3 MG/DL Sodium Level 136 MEQ/L Potassium Level 4.1 MEQ/L Chloride Level 97 MEQ/L Carbon Dioxide Level 31.8 MEQ/L Test 11/16/17 06:10 11/19/17 15:50 11/20/17 07:04 11/21/17 07:55 Total Creatine Kinase 13 U/L Urine Color LIGHT-YELLOW Urine Turbidity CLEAR Urine pH 6.0 Urine Specific [place] 1.010 Urine Protein TRACE mg/dL Urine Glucose (UA) NEG mg/dL Urine Ketones NEG mg/dL Urine Occult Blood MOD Urine Nitrite NEG Urine Bilirubin NEG Urine Urobilinogen LESS THAN 2.0 MG/DL Urine Leukocyte Esterase TRACE Urine RBC 22 /hpf Urine WBC 3 /hpf Urine Squamous Epithelial Cells 4 /hpf Microscopic Urinalysis Comment CULT NOT INDICATED White Blood Count 7.8 TH/MM3 Red Blood Count 3.94 MIL/MM3 Hemoglobin 9.5 GM/DL Hematocrit 29.5 % Mean Corpuscular Volume 74.8 FL Mean Corpuscular Hemoglobin 24.2 PG Mean Corpuscular Hemoglobin Concent 32.3 % Red Cell Distribution Width 18.5 % Platelet Count 177 TH/MM3 Mean Platelet Volume 7.6 FL Blood Urea Nitrogen 50 MG/DL Creatinine 2.49 MG/DL Random Glucose 80 MG/DL Albumin 3.0 GM/DL Calcium Level 9.0 MG/DL Phosphorus Level 5.2 MG/DL Sodium Level 138 MEQ/L Potassium Level 5.1 MEQ/L Chloride Level 102 MEQ/L Carbon Dioxide Level 29.7 MEQ/L Anion Gap 6 MEQ/L Estimat Glomerular Filtration Rate 21 ML/MIN Objective Remarks GENERAL: Obese female in no apparent distress. CARDIOVASCULAR: Normal rate and regular rhythm without murmurs, gallops, or rubs. RESPIRATORY: Good respiratory efforts. Breath sounds equal and clear to auscultation bilaterally. GASTROINTESTINAL: Abdomen obese, soft, non-tender, non-distended. Normal active bowel sounds MUSCULOSKELETAL: Extremities without cyanosis, or edema. NEURO: Alert & Oriented x4 to person, place, time, situation. Moves all ext x4 PSYCH: Appropriate mood and affect. Medications and IVs Current Medications Medications (Trade) Dose Ordered Sig/Juanpablo Route Start Time Stop Time Status Last Admin (Duoneb Neb) 1 ampule Q2HR NEB PRN NEB 10/30/17 22:45 (Mucinex Er) 600 mg BID PO 10/31/17 09:00 11/21/17 09:23 (NS Flush) 2 ml UNSCH PRN IV FLUSH 10/30/17 22:45 11/10/17 05:25 (NS Flush) 2 ml BID IV FLUSH 10/31/17 09:00 11/20/17 23:06 (Zofran Inj) 4 mg Q6H PRN IVP 10/30/17 22:45 (Tylenol) 650 mg Q6H PRN PO 10/30/17 22:45 10/31/17 07:11 (Milk Of Magnesia Liq) 30 ml Q12H PRN PO 10/30/17 22:45 (Senokot) 17.2 mg Q12H PRN PO 10/30/17 22:45 10/31/17 07:41 (Dulcolax Supp) 10 mg DAILY PRN RECTAL 10/30/17 22:45 (Lactulose Liq) 30 ml DAILY PRN PO 10/30/17 22:45 (Aspirin) 325 mg DAILY PO 10/31/17 09:00 11/21/17 09:24 (Symbicort 160-4.5 Mcg Inh) 2 puff Q12HR INH 10/31/17 09:00 11/21/17 09:25 (Cymbalta Dr) 30 mg DAILY PO 10/31/17 09:00 11/21/17 09:25 (Dilaudid) 4 mg Q4H PRN PO 10/30/17 22:45 11/21/17 15:12 (Singulair) 10 mg HS PO 10/31/17 21:00 11/20/17 20:52 (Valium) 5 mg Q8H PRN PO 10/30/17 23:00 11/21/17 15:12 (Tessalon) 100 mg TID PO 10/31/17 13:00 11/21/17 13:24 (Flexeril) 5 mg Q8H PRN PO 10/31/17 10:45 11/21/17 10:58 (Lovenox Inj) 30 mg Q24H SQ 10/31/17 11:00 11/21/17 10:59 (Pill Splitter) 1 ea UNSCH PRN OTHER 10/31/17 11:00 (NS Flush) DAILY IV FLUSH 11/03/17 09:00 11/21/17 09:25 (NS Flush) UNSCH PRN IV FLUSH 11/02/17 14:15 (Dilaudid Pf Inj) 0.5 mg Q3H PRN IV PUSH 11/04/17 16:15 (Colace) 100 mg BID PO 11/04/17 21:00 11/21/17 09:23 (Catapres) 0.1 mg Q6H PRN PO 11/04/17 13:45 11/10/17 20:55 (Procardia Xl) 60 mg DAILY PO 11/06/17 09:00 11/21/17 09:24 Daptomycin 970 mg/ Sodium Chloride 100 ml @ 200 mls/hr Q48H IV 11/08/17 21:00 11/20/17 23:04 (NS Flush) UNSCH PRN IV FLUSH 11/10/17 09:45 (Heparin Inj) UNSCH PRN IV FLUSH 11/10/17 09:45 11/13/17 15:16 (Lactinex) 1 tab TID PO 11/10/17 13:00 11/21/17 13:24 Sodium Chloride 1,000 ml @ 0 mls/hr Q0M PRN OTHER 11/10/17 11:38 (Heparin Inj) 8,000 units UNSCH PRN IV FLUSH 11/10/17 11:45 Sodium Chloride 1,000 ml @ 200 mls/hr Q5H PRN IV 11/10/17 11:38 Sodium Chloride 1,000 ml @ 0 mls/hr Q0M PRN OTHER 11/10/17 11:38 (Mannitol Inj) 12.5 gm UNSCH PRN IV 11/10/17 11:45 Albumin Human 100 ml @ 60 mls/hr UNSCH PRN IV 11/10/17 11:45 (NS Flush) 5 ml UNSCH PRN IV FLUSH 11/10/17 11:45 (Heparin Inj) UNSCH PRN .XX 11/10/17 11:45 11/11/17 18:10 (Gentamicin Inj) 20 mg UNSCH PRN OTHER 11/10/17 11:45 11/13/17 15:17 (Zofran Inj) 4 mg UNSCH PRN IV PUSH 11/10/17 11:45 11/13/17 14:30 (Tylenol) 650 mg UNSCH PRN PO 11/10/17 11:45 (Benadryl) 25 mg UNSCH PRN PO 11/10/17 11:45 (Nitrostat Sl) 0.4 mg UNSCH PRN SL 11/10/17 11:45 (Catapres) 0.1 mg UNSCH PRN PO 11/10/17 11:45 (Epogen Inj) 4,000 units UNSCH PRN IV PUSH 11/10/17 11:45 11/11/17 18:10 (Gelfoam 12 Mm/7 Mm Top) 1 foam UNSCH PRN TOP 11/10/17 11:45 (Diflucan) 200 mg DAILY PO 11/12/17 09:00 11/21/17 09:25 (Deltasone) 10 mg BID PO 11/16/17 21:00 11/21/17 09:24 A/P Assessment and Plan (1) COPD (chronic obstructive pulmonary disease) ICD Code: J44.9 - Chronic obstructive pulmonary disease Status: Chronic (2) Hypoxia ICD Code: R09.02 - Hypoxia Status: Acute (3) Chronic back pain ICD Code: M54.9 - Dorsalgia, unspecified; G89.29 - Other chronic pain Status: Acute (4) MRSA bacteremia ICD Code: R78.81 - Bacteremia Status: Acute 47-year-old female admitted secondary to an exacerbation of back pain suspected to be T11-T12 osteomyelitis, with persisting MRSA bacteremia. 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 To consider repeat MRI of the later this week. Continue daptomycin and Diflucan per infectious disease. Follow cultures. Repeat cultures today MRI showed abnormal signal involving the dura in the lower thoracic and upper lumbar spine with heterogenous enhancement of T11 and T12 suggest underlying infectious process/osteomyelitis. No obvious epidural collection, BC (+) 10/31-11/04 Diane albicans (+) BC, likely line, removed 11/09 (originally placed 11/02), complete course of Levaquin for Pneumonia, Lung Nodules Multiple small parenchymal lung nodules noted on CT of the chest, recommended follow-up, ?emboli Acute kidney injury: Secondary to acute tubular necrosis contrast and vancomycin. Patient has developed acute tubular necrosis after receiving contrast studies and she was on IV vancomycin Appreciate nephrology following. Status post hemodialysis on 11/11. 11/13. Nonoliguric. Improving Creatinine 2.49 on hold HD. Renal functions improving Vas-Cath Hemodialysis on hold per nephrology Follow BMP Avoid nephrotoxins Suspected pneumonia Completed course of Levaquin. Symptoms resolved. Hypertension Continue baseline treatment Follow blood pressures Adjust treatments as needed Continue nifedipine COPD continue DuoNeb, Symbicort, Mucinex. Continue to wean oral prednisone Obesity Strongly recommended diet and exercise as outpatient Chronic back pain continue Flexeril, Valium, hydromorphone as needed. DVT prophylaxis Lovenox No changes to anterior assessment. Discharge Planning Continue IV Antibiotics per ID recs. Follow renal functions. Rayo Deluca MD Nov 21, 2017 16:56
[2017-11-21 20:00] VITALS: BP 142/91; PULSE 72; PULSE 74; RESP 18; TEMP 97.9; O2SAT 98
[2017-11-21] MEDS: MONTELUKAST SODIUM 10 MG TAB PO SCH (20:57)
[2017-11-22] VITALS (7 sets, daily range): BP systolic 124–152; BP diastolic 77–100; PULSE 59–83; RESP 16–20; TEMP 97.6–99.5; O2SAT 94–97
[2017-11-22] MEDS: CYCLOBENZAPRINE HCL 10 MG TAB PO PRN ×3 (03:03→18:56)
[2017-11-22] MEDS: HYDROmorphone HCL 4 MG TAB PO PRN ×6 (03:03→23:04)
[2017-11-22] MEDS: DIAZEPAM 5 MG TAB PO PRN ×3 (07:13→23:04)
[2017-11-22] MEDS: DOCUSATE SODIUM 100 MG CAP PO SCH ×2 (08:34→22:16)
[2017-11-22] MEDS: BENZONATATE 100 MG CAP PO SCH ×3 (08:34→18:56)
[2017-11-22] MEDS: predniSONE 10 MG TAB PO SCH ×2 (08:34→22:16)
[2017-11-22] MEDS: NIFEdipine 60 MG SUSTAINED RELEASE TAB PO SCH (08:35)
[2017-11-22] MEDS: DULoxetine HCl DR 30 MG CAP PO SCH (08:35)
[2017-11-22] MEDS: ASPIRIN 325 MG TAB PO SCH (08:35)
[2017-11-22] MEDS: LACTOBACILLUS ACIDOPHILUS TAB PO SCH ×3 (08:35→18:56)
[2017-11-22] MEDS: FLUCONAZOLE 200 MG TAB PO SCH (08:35)
[2017-11-22] MEDS: guaiFENesin E.R. 600 MG TAB PO SCH ×2 (08:35→22:16)
[2017-11-22] MEDS: SODIUM CHLORIDE 0.9% FLUSH 10 ML FLUSH IV FLUSH SCH ×3 (08:36→22:17)
[2017-11-22] MEDS: BUDESONIDE-FORMOTEROL 160/4.5 MCG INHALER INH SCH ×2 (09:56→22:20)
--- NOTE | 2017-11-22 10:11 | HHI.PR ---
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 on Daptomycin and Diflucan, has Acute Kidney Injury and Nephrology specialist following, she developed Acute Tubular necrosis, after receiving contrast studies, was on IV Vancomycin, last hemodialysis 11/13, hemodialysis on Hold, Creatinine 2.91, potassium 4.9, Daptomycin and Diflucan. She has also Obesity, COPD, chronic back pain, MRI showed abnormal signal involving the dura in the lower thoracic and upper lumbar spine with heterogenous enhancement of T11 and T12 suggest underlying infectious process/osteomyelitis. No obvious epidural collection, BC (+) 10/31-11/04 Diane albicans (+) BC, likely line, removed 11/09 (originally placed 11/02), complete course of Levaquin for Pneumonia, Lung Nodules Multiple small parenchymal lung nodules noted on CT of the chest, recommended follow-up, ?emboli 11/22: Seen in her bedroom, no complaint continue present care, antibiotics as per ID specialist, as per Nephrology specialist, creatinine improving, no nausea, vomit or diarrhea. Objective Vital Signs Date Time Temp Pulse Resp B/P (MAP) Pulse Ox O2 Delivery O2 Flow Rate FiO2 11/22/17 04:00 68 11/22/17 04:00 97.7 66 16 129/77 (94) 97 11/22/17 00:00 97.8 71 16 138/93 (108) 95 11/22/17 00:00 76 11/22/17 00:00 Nasal Cannula 2.00 11/21/17 20:43 Nasal Cannula 2.00 11/21/17 20:00 Room Air 11/21/17 20:00 72 11/21/17 20:00 97.9 74 18 142/91 (108) 98 11/21/17 16:00 97.9 71 20 162/92 (115) 95 11/21/17 16:00 79 11/21/17 12:00 97.8 71 20 158/88 (111) 97 11/21/17 12:00 69 I/O 11/21/17 11/21/17 11/21/17 11/22/17 11/22/17 11/22/17 07:00 15:00 23:00 07:00 15:00 23:00 Intake Total 1440 ml 720 ml 480 ml Balance 1440 ml 720 ml 480 ml Intake Oral 1440 ml 720 ml 480 ml # Voids 4 3 3 # Bowel Movements 1 1 1 Result Diagram: 11/20/17 0704 11/21/17 0755 Imaging Last Impressions Central Venous Line 11/20/17 0000 Signed Impressions: Service Date/Time: Monday, November 20, 2017 00:00 - CONCLUSION: Uncomplicated central venous catheter removal. Domenic Pulido MD Catheter Placement X-Ray 11/10/17 0600 Signed Impressions: Service Date/Time: Friday, November 10, 2017 08:52 - CONCLUSION: Uncomplicated line placement as above. Rip Camarillo MD Chest CT 11/03/17 0000 Signed Impressions: Service Date/Time: Friday, November 03, 2017 22:37 - CONCLUSION: Minimal effusions. Mild basilar atelectasis. Patchy areas of minimal airspace infiltrate. Multiple small parenchymal lung nodules which should be followed Domenic Pulido MD Abdomen/Pelvis CT 11/03/17 0000 Signed Impressions: Service Date/Time: Friday, November 03, 2017 22:37 - CONCLUSION: 1. Small bilateral pleural effusions with mild basilar atelectasis the lungs. No acute findings within the abdomen and pelvis. Moderate constipation of the right colon. Melchor Caceres MD Thoracic Spine MRI 11/01/17 0000 Signed Impressions: Service Date/Time: Wednesday, November 01, 2017 17:21 - CONCLUSION: There is heterogeneous enhancement T11 and T12 with surrounding perivertebral edema and dural enhancement anterior and posterior to the cord. A well-defined mass is not seen. Intervertebral disc signal intensity is normal without enhancement to suggest discitis, however an osteomyelitis or other underlying infectious process should be excluded. Valente Prasad MD Lumbar Spine X-Ray 11/01/17 0000 Signed Impressions: Service Date/Time: Wednesday, November 01, 2017 18:18 - CONCLUSION: No acute disease. Valente Prasad MD Lumbar Spine MRI 11/01/17 0000 Signed Impressions: Service Date/Time: Wednesday, November 01, 2017 17:21 - CONCLUSION: Abnormal signal involving the dura in the lower thoracic and upper lumbar spine with heterogeneous enhancement of T11 and T12 suggest underlying infectious process/osteomyelitis. No obvious epidural collections at this time.. Valente Prasad MD Chest X-Ray 10/30/172031 Signed Impressions: Service Date/Time: Monday, October 30, 2017 21:48 - CONCLUSION: No acute disease. Domenic Davis MD Procedures Echocardiogram 11/03/2017 The left ventricular systolic function is low normal with an estimated ejection fraction in the range of 50- 55%. Trace mitral valve regurgitation. There is trace tricuspid valve regurgitation. Other Results Laboratory Tests Test 11/02/17 10:41 11/02/17 11:00 11/05/17 05:45 11/06/17 05:40 Erythrocyte Sedimentation Rate 38 mm/hr Lactic Acid Level 1.0 mmol/L Blood Urea Nitrogen 46 MG/DL Creatinine 1.33 MG/DL Random Glucose 111 MG/DL Total Protein 6.0 GM/DL Albumin 1.9 GM/DL Calcium Level 7.8 MG/DL Alkaline Phosphatase 88 U/L Aspartate Amino Transf (AST/SGOT) 24 U/L Alanine Aminotransferase (ALT/SGPT) 16 U/L Total Bilirubin 0.4 MG/DL Direct Bilirubin 0.1 MG/DL Sodium Level 135 MEQ/L Potassium Level 4.3 MEQ/L Chloride Level 99 MEQ/L Carbon Dioxide Level 26.3 MEQ/L Indirect Bilirubin 0.3 MG/DL C-Reactive Protein 4.81 MG/DL Vancomycin Level Trough 30.1 MCG/ML Keratocytes OCC Random Vancomycin Level 35.7 COMMENT Test 11/07/17 05:40 11/08/17 05:35 11/09/17 05:20 11/09/17 10:30 Myelocytes 2 % Protein Corrected Calcium 8.3 MG/DL Red Cell Morphology Comment NORMAL Differential Total Cells Counted 100 Neutrophils % (Manual) 86 % Band Neutrophils % 2 % Lymphocytes % 7 % Monocytes % 2 % Eosinophils % 2 % Neutrophils # (Manual) 10.0 TH/MM3 Metamyelocytes 1 % Toxic Granulation 2+ Toxic Vacuolation PRESENT Platelet Estimate NORMAL Platelet Morphology Comment NORMAL Ovalocytes 1+ Blood Urea Nitrogen 81 MG/DL Creatinine 4.80 MG/DL Random Glucose 66 MG/DL Total Protein 5.9 GM/DL Albumin 2.1 GM/DL Calcium Level 8.2 MG/DL Phosphorus Level 7.0 MG/DL Magnesium Level 2.7 MG/DL Alkaline Phosphatase 71 U/L Aspartate Amino Transf (AST/SGOT) 24 U/L Alanine Aminotransferase (ALT/SGPT) 23 U/L Total Bilirubin 0.5 MG/DL Sodium Level 137 MEQ/L Potassium Level 5.6 MEQ/L Chloride Level 106 MEQ/L Carbon Dioxide Level 20.8 MEQ/L Urine Uric Acid Crystals MANY /hpf Urine Bacteria FEW /hpf Urine Granular Casts 2 /lpf Urine Eosinophils NONE SEEN /HPF Urine Osmolality 412 MOSM/KG Urine Random Creatinine 67.6 MG/DL Urine Random Sodium 68 MEQ/L Test 11/10/17 05:25 11/10/17 14:40 11/11/17 14:00 11/12/17 13:56 Prothrombin Time 10.0 SEC Prothromb Time International Ratio 1.0 RATIO Activated Partial Thromboplast Time 28.7 SEC Hepatitis A IgM Antibody NONREACTIVE Hepatitis B Surface Antigen NONREACTIVE Hepatitis B Core IgM Antibody NONREACTIVE Hepatitis C IgG Antibody INDETERMINATE Stool C. difficile Toxin (PCR) NEGATIVE Stl C. difficile Toxin Epiderm 027 PRESUMPTIVE NEGATIVE Neutrophils (%) (Auto) 90.9 % Lymphocytes (%) (Auto) 5.4 % Monocytes (%) (Auto) 2.5 % Eosinophils (%) (Auto) 0.5 % Basophils (%) (Auto) 0.7 % Neutrophils # (Auto) 11.3 TH/MM3 Lymphocytes # (Auto) 0.7 TH/MM3 Monocytes # (Auto) 0.3 TH/MM3 Eosinophils # (Auto) 0.1 TH/MM3 Basophils # (Auto) 0.1 TH/MM3 CBC Comment DIFF FINAL Differential Comment Blood Urea Nitrogen 32 MG/DL Creatinine 3.39 MG/DL Random Glucose 134 MG/DL Total Protein 6.5 GM/DL Albumin 2.5 GM/DL Calcium Level 8.9 MG/DL Alkaline Phosphatase 85 U/L Aspartate Amino Transf (AST/SGOT) 14 U/L Alanine Aminotransferase (ALT/SGPT) 23 U/L Total Bilirubin 0.3 MG/DL Sodium Level 136 MEQ/L Potassium Level 4.1 MEQ/L Chloride Level 97 MEQ/L Carbon Dioxide Level 31.8 MEQ/L Test 11/16/17 06:10 11/19/17 15:50 11/20/17 07:04 11/21/17 07:55 Total Creatine Kinase 13 U/L Urine Color LIGHT-YELLOW Urine Turbidity CLEAR Urine pH 6.0 Urine Specific [place] 1.010 Urine Protein TRACE mg/dL Urine Glucose (UA) NEG mg/dL Urine Ketones NEG mg/dL Urine Occult Blood MOD Urine Nitrite NEG Urine Bilirubin NEG Urine Urobilinogen LESS THAN 2.0 MG/DL Urine Leukocyte Esterase TRACE Urine RBC 22 /hpf Urine WBC 3 /hpf Urine Squamous Epithelial Cells 4 /hpf Microscopic Urinalysis Comment CULT NOT INDICATED White Blood Count 7.8 TH/MM3 Red Blood Count 3.94 MIL/MM3 Hemoglobin 9.5 GM/DL Hematocrit 29.5 % Mean Corpuscular Volume 74.8 FL Mean Corpuscular Hemoglobin 24.2 PG Mean Corpuscular Hemoglobin Concent 32.3 % Red Cell Distribution Width 18.5 % Platelet Count 177 TH/MM3 Mean Platelet Volume 7.6 FL Blood Urea Nitrogen 50 MG/DL Creatinine 2.49 MG/DL Random Glucose 80 MG/DL Albumin 3.0 GM/DL Calcium Level 9.0 MG/DL Phosphorus Level 5.2 MG/DL Sodium Level 138 MEQ/L Potassium Level 5.1 MEQ/L Chloride Level 102 MEQ/L Carbon Dioxide Level 29.7 MEQ/L Anion Gap 6 MEQ/L Estimat Glomerular Filtration Rate 21 ML/MIN Objective Remarks GENERAL: Obese female in no apparent distress. CARDIOVASCULAR: Normal rate and regular rhythm without murmurs, gallops, or rubs. RESPIRATORY: Good respiratory efforts. Breath sounds equal and clear to auscultation bilaterally. GASTROINTESTINAL: Abdomen obese, soft, non-tender, non-distended. Normal active bowel sounds MUSCULOSKELETAL: Extremities without cyanosis, or edema. NEURO: Alert & Oriented x4 to person, place, time, situation. Moves all ext x4 PSYCH: Appropriate mood and affect. Medications and IVs Current Medications Medications (Trade) Dose Ordered Sig/Juanpablo Route Start Time Stop Time Status Last Admin (Duoneb Neb) 1 ampule Q2HR NEB PRN NEB 10/30/17 22:45 (Mucinex Er) 600 mg BID PO 10/31/17 09:00 11/22/17 08:35 (NS Flush) 2 ml UNSCH PRN IV FLUSH 10/30/17 22:45 11/10/17 05:25 (NS Flush) 2 ml BID IV FLUSH 10/31/17 09:00 11/21/17 20:56 (Zofran Inj) 4 mg Q6H PRN IVP 10/30/17 22:45 (Tylenol) 650 mg Q6H PRN PO 10/30/17 22:45 10/31/17 07:11 (Milk Of Magnesia Liq) 30 ml Q12H PRN PO 10/30/17 22:45 (Senokot) 17.2 mg Q12H PRN PO 10/30/17 22:45 10/31/17 07:41 (Dulcolax Supp) 10 mg DAILY PRN RECTAL 10/30/17 22:45 (Lactulose Liq) 30 ml DAILY PRN PO 10/30/17 22:45 (Aspirin) 325 mg DAILY PO 10/31/17 09:00 11/22/17 08:35 (Symbicort 160-4.5 Mcg Inh) 2 puff Q12HR INH 10/31/17 09:00 11/21/17 20:57 (Cymbalta Dr) 30 mg DAILY PO 10/31/17 09:00 11/22/17 08:35 (Dilaudid) 4 mg Q4H PRN PO 10/30/17 22:45 11/22/17 07:14 (Singulair) 10 mg HS PO 10/31/17 21:00 11/21/17 20:57 (Valium) 5 mg Q8H PRN PO 10/30/17 23:00 11/22/17 07:13 (Tessalon) 100 mg TID PO 10/31/17 13:00 11/22/17 08:34 (Flexeril) 5 mg Q8H PRN PO 10/31/17 10:45 11/22/17 03:03 (Lovenox Inj) 30 mg Q24H SQ 10/31/17 11:00 11/21/17 10:59 (Pill Splitter) 1 ea UNSCH PRN OTHER 10/31/17 11:00 (NS Flush) DAILY IV FLUSH 11/03/17 09:00 11/22/17 08:36 (NS Flush) UNSCH PRN IV FLUSH 11/02/17 14:15 (Dilaudid Pf Inj) 0.5 mg Q3H PRN IV PUSH 11/04/17 16:15 (Colace) 100 mg BID PO 11/04/17 21:00 11/22/17 08:34 (Catapres) 0.1 mg Q6H PRN PO 11/04/17 13:45 11/10/17 20:55 (Procardia Xl) 60 mg DAILY PO 11/06/17 09:00 11/22/17 08:35 Daptomycin 970 mg/ Sodium Chloride 100 ml @ 200 mls/hr Q48H IV 11/08/17 21:00 11/20/17 23:04 (NS Flush) UNSCH PRN IV FLUSH 11/10/17 09:45 (Heparin Inj) UNSCH PRN IV FLUSH 11/10/17 09:45 11/13/17 15:16 (Lactinex) 1 tab TID PO 11/10/17 13:00 11/22/17 08:35 Sodium Chloride 1,000 ml @ 0 mls/hr Q0M PRN OTHER 11/10/17 11:38 (Heparin Inj) 8,000 units UNSCH PRN IV FLUSH 11/10/17 11:45 Sodium Chloride 1,000 ml @ 200 mls/hr Q5H PRN IV 11/10/17 11:38 Sodium Chloride 1,000 ml @ 0 mls/hr Q0M PRN OTHER 11/10/17 11:38 (Mannitol Inj) 12.5 gm UNSCH PRN IV 11/10/17 11:45 Albumin Human 100 ml @ 60 mls/hr UNSCH PRN IV 11/10/17 11:45 (NS Flush) 5 ml UNSCH PRN IV FLUSH 11/10/17 11:45 (Heparin Inj) UNSCH PRN .XX 11/10/17 11:45 11/11/17 18:10 (Gentamicin Inj) 20 mg UNSCH PRN OTHER 11/10/17 11:45 11/13/17 15:17 (Zofran Inj) 4 mg UNSCH PRN IV PUSH 11/10/17 11:45 11/13/17 14:30 (Tylenol) 650 mg UNSCH PRN PO 11/10/17 11:45 (Benadryl) 25 mg UNSCH PRN PO 11/10/17 11:45 (Nitrostat Sl) 0.4 mg UNSCH PRN SL 11/10/17 11:45 (Catapres) 0.1 mg UNSCH PRN PO 11/10/17 11:45 (Epogen Inj) 4,000 units UNSCH PRN IV PUSH 11/10/17 11:45 11/11/17 18:10 (Gelfoam 12 Mm/7 Mm Top) 1 foam UNSCH PRN TOP 11/10/17 11:45 (Diflucan) 200 mg DAILY PO 11/12/17 09:00 11/22/17 08:35 (Deltasone) 10 mg BID PO 11/16/17 21:00 11/22/17 08:34 A/P Assessment and Plan (1) COPD (chronic obstructive pulmonary disease) ICD Code: J44.9 - Chronic obstructive pulmonary disease Status: Chronic (2) Hypoxia ICD Code: R09.02 - Hypoxia Status: Acute (3) Chronic back pain ICD Code: M54.9 - Dorsalgia, unspecified; G89.29 - Other chronic pain Status: Acute (4) MRSA bacteremia ICD Code: R78.81 - Bacteremia Status: Acute 47-year-old female admitted secondary to an exacerbation of back pain suspected to be T11-T12 osteomyelitis, with persisting MRSA bacteremia. 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 To consider repeat MRI of the later this week. Continue daptomycin and Diflucan per infectious disease. Follow cultures. Repeat cultures today MRI showed abnormal signal involving the dura in the lower thoracic and upper lumbar spine with heterogenous enhancement of T11 and T12 suggest underlying infectious process/osteomyelitis. No obvious epidural collection, BC (+) 10/31-11/04 Diane albicans (+) BC, likely line, removed 11/09 (originally placed 11/02), complete course of Levaquin for Pneumonia, Lung Nodules Multiple small parenchymal lung nodules noted on CT of the chest, recommended follow-up, ?emboli Acute kidney injury: Secondary to acute tubular necrosis contrast and vancomycin. Patient has developed acute tubular necrosis after receiving contrast studies and she was on IV vancomycin Appreciate nephrology following. Status post hemodialysis on 11/11. 11/13. Nonoliguric. Improving Creatinine 2.49 on hold HD. Renal functions improving Vas-Cath Hemodialysis on hold per nephrology Follow BMP Avoid nephrotoxins Suspected pneumonia Completed course of Levaquin. Symptoms resolved. Hypertension Continue baseline treatment Follow blood pressures Adjust treatments as needed Continue nifedipine COPD continue DuoNeb, Symbicort, Mucinex. Continue to wean oral prednisone Obesity Strongly recommended diet and exercise as outpatient Chronic back pain continue Flexeril, Valium, hydromorphone as needed. DVT prophylaxis Lovenox No changes to anterior assessment. Discharge Planning Continue IV Antibiotics per ID recs. Follow renal functions. Rayo Deluca MD Nov 22, 2017 10:11
[2017-11-22] MEDS: ENOXAPARIN SODIUM 30 MG/0.3 ML SYRINGE SQ SCH (10:58)
--- NOTE | 2017-11-22 11:13 | HHI.NPPN ---
Subjective History of Present Illness 47 year old with sepsis now with ARF, thoracic spine fluid collection Additional Remarks Patient reports some shortness breath on exertion only. Appetite improving. (Ly Brandt) Review of Systems Respiratory Lungs: SOB Respiratory Remarks Chronic SOB (Ly Brandt) Objective Data Data Vital Signs Date Time Temp Pulse Resp B/P (MAP) Pulse Ox O2 Delivery O2 Flow Rate FiO2 11/22/17 08:00 59 11/22/17 08:00 97.6 63 20 135/84 (101) 96 11/22/17 07:00 Room Air 11/22/17 04:00 68 11/22/17 04:00 97.7 66 16 129/77 (94) 97 11/22/17 00:00 97.8 71 16 138/93 (108) 95 11/22/17 00:00 76 11/22/17 00:00 Nasal Cannula 2.00 11/21/17 20:43 Nasal Cannula 2.00 11/21/17 20:00 Room Air 11/21/17 20:00 72 11/21/17 20:00 97.9 74 18 142/91 (108) 98 11/21/17 16:00 97.9 71 20 162/92 (115) 95 11/21/17 16:00 79 11/21/17 12:00 97.8 71 20 158/88 (111) 97 11/21/17 12:00 69 (Ly Brandt) -: 11/20/17 0704 11/21/17 0755 Physical Exam General Appearance: Well Developed, Well Nourished (Ly Brandt) Neck Neck Exam: Neck Supple (Ly Brandt) Pulmonary Resp Exam: Clear Bilaterally, Breath Sounds Equal (Ly Brandt) Cardiology CV Exam: Regular, Normal Sinus Rhythm (Ly Brandt) Gastrointestinal/Abdomen GI Exam: Soft, Distended (Ly Brandt) Extremeties Extremities Exam: No Edema (Ly Brandt) Neurologic Neuro Exam: Alert, Awake, Oriented (Ly Brandt) Assessment/Plan Problem List: (1) Acute renal failure ICD Codes: N17.9 - Acute kidney failure, unspecified Plan: Patient has developed acute tubular necrosis after receiving contrast studies and she was on IV vancomycin Patient is nonoliguric Last hemodialysis was on 11/13. Hemodialysis on hold Creatinine improving at 2.49 from 2.91 yesterday K 4.9 Follow BMP and urinary output. Labs in AM (2) Osteomyelitis ICD Codes: M86.9 - Osteomyelitis, unspecified Plan: Thoracic spine she is getting daptomycin (3) Bacteremia ICD Codes: R78.81 - Bacteremia (4) MRSA bacteremia ICD Codes: R78.81 - Bacteremia Status: Acute Plan: On daptomycin and ceftaroline (5) Chronic back pain ICD Codes: M54.9 - Dorsalgia, unspecified; G89.29 - Other chronic pain Status: Acute Plan: Possible osteomyelitis (6) COPD with acute exacerbation ICD Codes: J44.1 - Chronic obstructive pulmonary disease with (acute) exacerbation Status: Acute Plan: Continue with current treatment (Ly Brandt) Problem List: (1) Acute renal failure ICD Codes: N17.9 - Acute kidney failure, unspecified Plan: Patient has developed acute tubular necrosis after receiving contrast studies and she was on IV vancomycin Patient is nonoliguric Last hemodialysis was on 11/13. Hemodialysis on hold Creatinine improving at 2.49 from 2.91 yesterday K 4.9 Follow BMP and urinary output. Labs in AM. Patient seen and examined, agree with above. HD is on hold. (2) Osteomyelitis ICD Codes: M86.9 - Osteomyelitis, unspecified Plan: Thoracic spine she is getting daptomycin (3) Bacteremia ICD Codes: R78.81 - Bacteremia (4) MRSA bacteremia ICD Codes: R78.81 - Bacteremia Status: Acute Plan: On daptomycin and ceftaroline (5) Chronic back pain ICD Codes: M54.9 - Dorsalgia, unspecified; G89.29 - Other chronic pain Status: Acute Plan: Possible osteomyelitis (6) COPD with acute exacerbation ICD Codes: J44.1 - Chronic obstructive pulmonary disease with (acute) exacerbation Status: Acute Plan: Continue with current treatment (Darnell Lopez MD) Problem Qualifiers (1) Acute renal failure: Qualified Codes: N17.0 - Acute kidney failure with tubular necrosis (2) Chronic back pain: Qualified Codes: M54.5 - Low back pain; G89.29 - Other chronic pain Ly Brandt Nov 22, 2017 11:13 Darnell Lopez MD Nov 22, 2017 14:54
[2017-11-22] MEDS: MONTELUKAST SODIUM 10 MG TAB PO SCH (22:16)
[2017-11-22] MEDS: SODIUM CHLORIDE 0.9% IV SCH (22:27)
[2017-11-22] MEDS: DAPTOMYCIN IV SCH (22:27)
[2017-11-23] VITALS (11 sets, daily range): BP systolic 125–141; BP diastolic 67–95; PULSE 64–87; RESP 18–20; TEMP 97.4–98.7; O2SAT 96–98
[2017-11-23] MEDS: HYDROmorphone HCL 4 MG TAB PO PRN ×6 (03:15→23:05)
[2017-11-23] MEDS: CYCLOBENZAPRINE HCL 10 MG TAB PO PRN ×3 (03:15→18:56)
[2017-11-23] MEDS: DIAZEPAM 5 MG TAB PO PRN ×3 (06:43→23:05)
[2017-11-23 07:16] LABS: AUTOMATED NEUTROPHIL # 5.3 TH/MM3 (1.8-7.7); BASOPHIL # 0.1 TH/MM3 (0-0.2); BASOPHIL % 0.9 % (0.0-2.0); EOSINOPHIL # 0.2 TH/MM3 (0-0.4); EOSINOPHIL % 3.4 % (0.0-4.0); HEMATOCRIT 30.7 % (35.0-46.0); HEMOGLOBIN 9.8 GM/DL (11.6-15.3); LYMPH % 10.5 % (9.0-44.0); LYMPHOCYTE # 0.7 TH/MM3 (1.0-4.8); MEAN CELL VOLUME 74.7 FL (80.0-100.0); MEAN CORPUSCULAR HEMOGLOBIN 23.9 PG (27.0-34.0); MEAN PLATELET VOLUME 7.8 FL (7.0-11.0); MONO % 5.4 % (0.0-8.0); MONOCYTE # 0.4 TH/MM3 (0-0.9); NEUT % 79.8 % (16.0-70.0); PLATELET COUNT 164 TH/MM3 (150-450); RED BLOOD COUNT 4.11 MIL/MM3 (4.00-5.30); RED CELL DISTRIBUTION WIDTH 19.7 % (11.6-17.2); WHITE BLOOD COUNT 6.6 TH/MM3 (4.0-11.0)
[2017-11-23 07:43] LABS: BICARBONATE 28.8 MEQ/L (21.0-32.0); CALCIUM 8.8 MG/DL (8.5-10.1); CREATININE 2.35 MG/DL (0.50-1.00)
[2017-11-23 07:44] LABS: PHOSPHORUS 4.7 MG/DL (2.5-4.9)
[2017-11-23] MEDS: LACTOBACILLUS ACIDOPHILUS TAB PO SCH ×3 (08:57→18:55)
[2017-11-23] MEDS: guaiFENesin E.R. 600 MG TAB PO SCH ×2 (08:57→22:00)
[2017-11-23] MEDS: BENZONATATE 100 MG CAP PO SCH ×3 (08:57→18:55)
[2017-11-23] MEDS: FLUCONAZOLE 200 MG TAB PO SCH (08:57)
[2017-11-23] MEDS: NIFEdipine 60 MG SUSTAINED RELEASE TAB PO SCH (08:57)
[2017-11-23] MEDS: ASPIRIN 325 MG TAB PO SCH (08:57)
[2017-11-23] MEDS: predniSONE 10 MG TAB PO SCH (08:57)
[2017-11-23] MEDS: DOCUSATE SODIUM 100 MG CAP PO SCH ×2 (08:58→21:00)
[2017-11-23] MEDS: DULoxetine HCl DR 30 MG CAP PO SCH (08:58)
[2017-11-23] MEDS: BUDESONIDE-FORMOTEROL 160/4.5 MCG INHALER INH SCH ×2 (08:59→22:01)
[2017-11-23] MEDS: SODIUM CHLORIDE 0.9% FLUSH 10 ML FLUSH IV FLUSH SCH ×3 (09:00→22:01)
[2017-11-23] MEDS: ENOXAPARIN SODIUM 30 MG/0.3 ML SYRINGE SQ SCH (10:56)
--- NOTE | 2017-11-23 15:22 | HHI.NPPN ---
Subjective History of Present Illness 47 year old with sepsis now with ARF, thoracic spine fluid collection Additional Remarks Patient doing okay. Appetite improving. Review of Systems Respiratory Lungs: SOB Respiratory Remarks Chronic SOB Objective Data Data Vital Signs Date Time Temp Pulse Resp B/P (MAP) Pulse Ox O2 Delivery O2 Flow Rate FiO2 11/23/17 11:25 98.0 64 18 139/81 (100) 98 11/23/17 07:55 98.0 65 20 133/68 (89) 97 11/23/17 04:00 98.7 75 20 136/75 (95) 97 11/23/17 04:00 75 11/23/17 00:00 77 11/23/17 00:00 Nasal Cannula 2.00 11/23/17 00:00 98.3 84 20 135/67 (89) 96 11/22/17 20:00 77 11/22/17 20:00 Nasal Cannula 2.00 11/22/17 20:00 99.5 82 20 133/87 (102) 95 11/22/17 16:00 73 11/22/17 16:00 98.5 83 20 124/81 (95) 96 -: 11/23/17 0632 11/23/17 0632 Physical Exam General Appearance: Well Developed, Well Nourished Neck Neck Exam: Neck Supple Pulmonary Resp Exam: Clear Bilaterally, Breath Sounds Equal Cardiology CV Exam: Regular, Normal Sinus Rhythm Gastrointestinal/Abdomen GI Exam: Soft, Distended Extremeties Extremities Exam: No Edema Neurologic Neuro Exam: Alert, Awake, Oriented Assessment/Plan Problem List: (1) Acute renal failure ICD Codes: N17.9 - Acute kidney failure, unspecified Plan: Patient has developed acute tubular necrosis after receiving contrast studies and she was on IV vancomycin Patient is nonoliguric Last hemodialysis was on 11/13. Hemodialysis on hold Creatinine improving at 2.3 K 5.2 Kayexalate 30 g ordered Follow BMP and urinary output. Labs in AM. (2) Osteomyelitis ICD Codes: M86.9 - Osteomyelitis, unspecified Plan: thoracic spine she is getting daptomycin (3) Bacteremia ICD Codes: R78.81 - Bacteremia (4) MRSA bacteremia ICD Codes: R78.81 - Bacteremia Status: Acute Plan: On daptomycin and ceftaroline (5) Chronic back pain ICD Codes: M54.9 - Dorsalgia, unspecified; G89.29 - Other chronic pain Status: Acute Plan: Possible osteomyelitis (6) COPD with acute exacerbation ICD Codes: J44.1 - Chronic obstructive pulmonary disease with (acute) exacerbation Status: Acute Plan: Continue with current treatment Problem Qualifiers (1) Acute renal failure: Qualified Codes: N17.0 - Acute kidney failure with tubular necrosis (2) Chronic back pain: Qualified Codes: M54.5 - Low back pain; G89.29 - Other chronic pain David Sales MD Nov 23, 2017 15:22
[2017-11-23] MEDS ORDERED: SODIUM POLYSTYRENE SULFONATE SUSP 15 GM/60 ML CUP PO ONE (15:30)
--- NOTE | 2017-11-23 17:56 | HHI.PR ---
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 on Daptomycin and Diflucan, has Acute Kidney Injury and Nephrology specialist following, she developed Acute Tubular necrosis, after receiving contrast studies, was on IV Vancomycin, last hemodialysis 11/13, hemodialysis on Hold, Creatinine 2.91, potassium 4.9, Daptomycin and Diflucan. She has also Obesity, COPD, chronic back pain, MRI showed abnormal signal involving the dura in the lower thoracic and upper lumbar spine with heterogenous enhancement of T11 and T12 suggest underlying infectious process/osteomyelitis. No obvious epidural collection, BC (+) 10/31-11/04 Diane albicans (+) BC, likely line, removed 11/09 (originally placed 11/02), complete course of Levaquin for Pneumonia, Lung Nodules Multiple small parenchymal lung nodules noted on CT of the chest, recommended follow-up, ?emboli 11/23: Seen in her bedroom, no complaint continue present care, antibiotics as per ID specialist, as per Nephrology specialist, creatinine improving, Potassium today 5.2 giving Kayexalate. no nausea, vomit or diarrhea. Objective Vital Signs Date Time Temp Pulse Resp B/P (MAP) Pulse Ox O2 Delivery O2 Flow Rate FiO2 11/23/17 15:34 97.7 84 18 125/68 (87) 96 11/23/17 12:00 71 11/23/17 11:25 98.0 64 18 139/81 (100) 98 11/23/17 08:00 65 11/23/17 07:55 98.0 65 20 133/68 (89) 97 11/23/17 07:00 Nasal Cannula 2.00 11/23/17 04:00 98.7 75 20 136/75 (95) 97 11/23/17 04:00 75 11/23/17 00:00 77 11/23/17 00:00 Nasal Cannula 2.00 11/23/17 00:00 98.3 84 20 135/67 (89) 96 11/22/17 20:00 77 11/22/17 20:00 Nasal Cannula 2.00 11/22/17 20:00 99.5 82 20 133/87 (102) 95 I/O 4/22/18 4/11/22/17 11/23/17 11/23/17 11/23/17 07:00 15:00 23:00 07:00 15:00 23:00 Intake Total 480 ml 480 ml 500 ml Balance 480 ml 480 ml 500 ml Intake Oral 480 ml 480 ml 500 ml # Voids 3 6 3 # Bowel Movements 1 1 Result Diagram: 11/23/17 0632 11/23/17 0632 Imaging Last Impressions Central Venous Line 11/20/17 0000 Signed Impressions: Service Date/Time: Monday, November 20, 2017 00:00 - CONCLUSION: Uncomplicated central venous catheter removal. Domenic Pulido MD Catheter Placement X-Ray 11/10/17 0600 Signed Impressions: Service Date/Time: Friday, November 10, 2017 08:52 - CONCLUSION: Uncomplicated line placement as above. Rip Camarillo MD Chest CT 11/03/17 0000 Signed Impressions: Service Date/Time: Friday, November 03, 2017 22:37 - CONCLUSION: Minimal effusions. Mild basilar atelectasis. Patchy areas of minimal airspace infiltrate. Multiple small parenchymal lung nodules which should be followed Domenic Pulido MD Abdomen/Pelvis CT 11/03/17 0000 Signed Impressions: Service Date/Time: Friday, November 03, 2017 22:37 - CONCLUSION: 1. Small bilateral pleural effusions with mild basilar atelectasis the lungs. No acute findings within the abdomen and pelvis. Moderate constipation of the right colon. Melchor Caceres MD Thoracic Spine MRI 11/01/17 0000 Signed Impressions: Service Date/Time: Wednesday, November 01, 2017 17:21 - CONCLUSION: There is heterogeneous enhancement T11 and T12 with surrounding perivertebral edema and dural enhancement anterior and posterior to the cord. A well-defined mass is not seen. Intervertebral disc signal intensity is normal without enhancement to suggest discitis, however an osteomyelitis or other underlying infectious process should be excluded. Valente Prasad MD Lumbar Spine X-Ray 11/01/17 0000 Signed Impressions: Service Date/Time: Wednesday, November 01, 2017 18:18 - CONCLUSION: No acute disease. Valente Prasad MD Lumbar Spine MRI 11/01/17 0000 Signed Impressions: Service Date/Time: Wednesday, November 01, 2017 17:21 - CONCLUSION: Abnormal signal involving the dura in the lower thoracic and upper lumbar spine with heterogeneous enhancement of T11 and T12 suggest underlying infectious process/osteomyelitis. No obvious epidural collections at this time.. Valente Prasad MD Chest X-Ray 10/30/172031 Signed Impressions: Service Date/Time: Monday, October 30, 2017 21:48 - CONCLUSION: No acute disease. Domenic Davis MD Procedures Echocardiogram 11/03/2017 The left ventricular systolic function is low normal with an estimated ejection fraction in the range of 50- 55%. Trace mitral valve regurgitation. There is trace tricuspid valve regurgitation. Other Results Laboratory Tests Test 11/02/17 10:41 11/02/17 11:00 11/05/17 05:45 11/06/17 05:40 Erythrocyte Sedimentation Rate 38 mm/hr Lactic Acid Level 1.0 mmol/L Blood Urea Nitrogen 46 MG/DL Creatinine 1.33 MG/DL Random Glucose 111 MG/DL Total Protein 6.0 GM/DL Albumin 1.9 GM/DL Calcium Level 7.8 MG/DL Alkaline Phosphatase 88 U/L Aspartate Amino Transf (AST/SGOT) 24 U/L Alanine Aminotransferase (ALT/SGPT) 16 U/L Total Bilirubin 0.4 MG/DL Direct Bilirubin 0.1 MG/DL Sodium Level 135 MEQ/L Potassium Level 4.3 MEQ/L Chloride Level 99 MEQ/L Carbon Dioxide Level 26.3 MEQ/L Indirect Bilirubin 0.3 MG/DL C-Reactive Protein 4.81 MG/DL Vancomycin Level Trough 30.1 MCG/ML Keratocytes OCC Random Vancomycin Level 35.7 COMMENT Test 11/07/17 05:40 11/08/17 05:35 11/09/17 05:20 11/09/17 10:30 Myelocytes 2 % Protein Corrected Calcium 8.3 MG/DL Red Cell Morphology Comment NORMAL Differential Total Cells Counted 100 Neutrophils % (Manual) 86 % Band Neutrophils % 2 % Lymphocytes % 7 % Monocytes % 2 % Eosinophils % 2 % Neutrophils # (Manual) 10.0 TH/MM3 Metamyelocytes 1 % Toxic Granulation 2+ Toxic Vacuolation PRESENT Platelet Estimate NORMAL Platelet Morphology Comment NORMAL Ovalocytes 1+ Blood Urea Nitrogen 81 MG/DL Creatinine 4.80 MG/DL Random Glucose 66 MG/DL Total Protein 5.9 GM/DL Albumin 2.1 GM/DL Calcium Level 8.2 MG/DL Phosphorus Level 7.0 MG/DL Magnesium Level 2.7 MG/DL Alkaline Phosphatase 71 U/L Aspartate Amino Transf (AST/SGOT) 24 U/L Alanine Aminotransferase (ALT/SGPT) 23 U/L Total Bilirubin 0.5 MG/DL Sodium Level 137 MEQ/L Potassium Level 5.6 MEQ/L Chloride Level 106 MEQ/L Carbon Dioxide Level 20.8 MEQ/L Urine Uric Acid Crystals MANY /hpf Urine Bacteria FEW /hpf Urine Granular Casts 2 /lpf Urine Eosinophils NONE SEEN /HPF Urine Osmolality 412 MOSM/KG Urine Random Creatinine 67.6 MG/DL Urine Random Sodium 68 MEQ/L Test 11/10/17 05:25 11/10/17 14:40 11/11/17 14:00 11/12/17 13:56 Prothrombin Time 10.0 SEC Prothromb Time International Ratio 1.0 RATIO Activated Partial Thromboplast Time 28.7 SEC Hepatitis A IgM Antibody NONREACTIVE Hepatitis B Surface Antigen NONREACTIVE Hepatitis B Core IgM Antibody NONREACTIVE Hepatitis C IgG Antibody INDETERMINATE Stool C. difficile Toxin (PCR) NEGATIVE Stl C. difficile Toxin Epiderm 027 PRESUMPTIVE NEGATIVE Blood Urea Nitrogen 32 MG/DL Creatinine 3.39 MG/DL Random Glucose 134 MG/DL Total Protein 6.5 GM/DL Albumin 2.5 GM/DL Calcium Level 8.9 MG/DL Alkaline Phosphatase 85 U/L Aspartate Amino Transf (AST/SGOT) 14 U/L Alanine Aminotransferase (ALT/SGPT) 23 U/L Total Bilirubin 0.3 MG/DL Sodium Level 136 MEQ/L Potassium Level 4.1 MEQ/L Chloride Level 97 MEQ/L Carbon Dioxide Level 31.8 MEQ/L Test 11/16/17 06:10 11/19/17 15:50 11/21/17 07:55 11/23/17 06:32 Total Creatine Kinase 13 U/L Urine Color LIGHT-YELLOW Urine Turbidity CLEAR Urine pH 6.0 Urine Specific [place] 1.010 Urine Protein TRACE mg/dL Urine Glucose (UA) NEG mg/dL Urine Ketones NEG mg/dL Urine Occult Blood MOD Urine Nitrite NEG Urine Bilirubin NEG Urine Urobilinogen LESS THAN 2.0 MG/DL Urine Leukocyte Esterase TRACE Urine RBC 22 /hpf Urine WBC 3 /hpf Urine Squamous Epithelial Cells 4 /hpf Microscopic Urinalysis Comment CULT NOT INDICATED Blood Urea Nitrogen 50 MG/DL 51 MG/DL Creatinine 2.49 MG/DL 2.35 MG/DL Random Glucose 80 MG/DL 103 MG/DL Albumin 3.0 GM/DL Calcium Level 9.0 MG/DL 8.8 MG/DL Phosphorus Level 5.2 MG/DL 4.7 MG/DL Sodium Level 138 MEQ/L 139 MEQ/L Potassium Level 5.1 MEQ/L 5.2 MEQ/L Chloride Level 102 MEQ/L 102 MEQ/L Carbon Dioxide Level 29.7 MEQ/L 28.8 MEQ/L White Blood Count 6.6 TH/MM3 Red Blood Count 4.11 MIL/MM3 Hemoglobin 9.8 GM/DL Hematocrit 30.7 % Mean Corpuscular Volume 74.7 FL Mean Corpuscular Hemoglobin 23.9 PG Mean Corpuscular Hemoglobin Concent 32.0 % Red Cell Distribution Width 19.7 % Platelet Count 164 TH/MM3 Mean Platelet Volume 7.8 FL Neutrophils (%) (Auto) 79.8 % Lymphocytes (%) (Auto) 10.5 % Monocytes (%) (Auto) 5.4 % Eosinophils (%) (Auto) 3.4 % Basophils (%) (Auto) 0.9 % Neutrophils # (Auto) 5.3 TH/MM3 Lymphocytes # (Auto) 0.7 TH/MM3 Monocytes # (Auto) 0.4 TH/MM3 Eosinophils # (Auto) 0.2 TH/MM3 Basophils # (Auto) 0.1 TH/MM3 CBC Comment DIFF FINAL Differential Comment Anion Gap 8 MEQ/L Estimat Glomerular Filtration Rate 22 ML/MIN Objective Remarks GENERAL: Obese female in no apparent distress. CARDIOVASCULAR: Normal rate and regular rhythm without murmurs, gallops, or rubs. RESPIRATORY: Good respiratory efforts. Breath sounds equal and clear to auscultation bilaterally. GASTROINTESTINAL: Abdomen obese, soft, non-tender, non-distended. Normal active bowel sounds MUSCULOSKELETAL: Extremities without cyanosis, or edema. NEURO: Alert & Oriented x4 to person, place, time, situation. Moves all ext x4 PSYCH: Appropriate mood and affect. Medications and IVs Current Medications Medications (Trade) Dose Ordered Sig/Juanpablo Route Start Time Stop Time Status Last Admin (Duoneb Neb) 1 ampule Q2HR NEB PRN NEB 10/30/17 22:45 (Mucinex Er) 600 mg BID PO 10/31/17 09:00 11/23/17 08:57 (NS Flush) 2 ml UNSCH PRN IV FLUSH 10/30/17 22:45 11/10/17 05:25 (NS Flush) 2 ml BID IV FLUSH 10/31/17 09:00 11/22/17 22:17 (Zofran Inj) 4 mg Q6H PRN IVP 10/30/17 22:45 (Tylenol) 650 mg Q6H PRN PO 10/30/17 22:45 10/31/17 07:11 (Milk Of Magnesia Liq) 30 ml Q12H PRN PO 10/30/17 22:45 (Senokot) 17.2 mg Q12H PRN PO 10/30/17 22:45 10/31/17 07:41 (Dulcolax Supp) 10 mg DAILY PRN RECTAL 10/30/17 22:45 (Lactulose Liq) 30 ml DAILY PRN PO 10/30/17 22:45 (Aspirin) 325 mg DAILY PO 10/31/17 09:00 11/23/17 08:57 (Symbicort 160-4.5 Mcg Inh) 2 puff Q12HR INH 10/31/17 09:00 11/23/17 08:59 (Cymbalta Dr) 30 mg DAILY PO 10/31/17 09:00 11/23/17 08:58 (Dilaudid) 4 mg Q4H PRN PO 10/30/17 22:45 11/23/17 15:16 (Singulair) 10 mg HS PO 10/31/17 21:00 11/22/17 22:16 (Valium) 5 mg Q8H PRN PO 10/30/17 23:00 11/23/17 15:16 (Tessalon) 100 mg TID PO 10/31/17 13:00 11/23/17 12:58 (Flexeril) 5 mg Q8H PRN PO 10/31/17 10:45 11/23/17 10:55 (Lovenox Inj) 30 mg Q24H SQ 10/31/17 11:00 11/23/17 10:56 (Pill Splitter) 1 ea UNSCH PRN OTHER 10/31/17 11:00 (NS Flush) DAILY IV FLUSH 11/03/17 09:00 11/23/17 09:00 (NS Flush) UNSCH PRN IV FLUSH 11/02/17 14:15 (Dilaudid Pf Inj) 0.5 mg Q3H PRN IV PUSH 11/04/17 16:15 (Colace) 100 mg BID PO 11/04/17 21:00 11/23/17 08:58 (Catapres) 0.1 mg Q6H PRN PO 11/04/17 13:45 11/10/17 20:55 (Procardia Xl) 60 mg DAILY PO 11/06/17 09:00 11/23/17 08:57 Daptomycin 970 mg/ Sodium Chloride 100 ml @ 200 mls/hr Q48H IV 11/08/17 21:00 11/22/17 22:27 (NS Flush) UNSCH PRN IV FLUSH 11/10/17 09:45 (Heparin Inj) UNSCH PRN IV FLUSH 11/10/17 09:45 11/13/17 15:16 (Lactinex) 1 tab TID PO 11/10/17 13:00 11/23/17 12:59 Sodium Chloride 1,000 ml @ 0 mls/hr Q0M PRN OTHER 11/10/17 11:38 (Heparin Inj) 8,000 units UNSCH PRN IV FLUSH 11/10/17 11:45 Sodium Chloride 1,000 ml @ 200 mls/hr Q5H PRN IV 11/10/17 11:38 Sodium Chloride 1,000 ml @ 0 mls/hr Q0M PRN OTHER 11/10/17 11:38 (Mannitol Inj) 12.5 gm UNSCH PRN IV 11/10/17 11:45 Albumin Human 100 ml @ 60 mls/hr UNSCH PRN IV 11/10/17 11:45 (NS Flush) 5 ml UNSCH PRN IV FLUSH 11/10/17 11:45 (Heparin Inj) UNSCH PRN .XX 11/10/17 11:45 11/11/17 18:10 (Gentamicin Inj) 20 mg UNSCH PRN OTHER 11/10/17 11:45 11/13/17 15:17 (Zofran Inj) 4 mg UNSCH PRN IV PUSH 11/10/17 11:45 11/13/17 14:30 (Tylenol) 650 mg UNSCH PRN PO 11/10/17 11:45 (Benadryl) 25 mg UNSCH PRN PO 11/10/17 11:45 (Nitrostat Sl) 0.4 mg UNSCH PRN SL 11/10/17 11:45 (Catapres) 0.1 mg UNSCH PRN PO 11/10/17 11:45 (Epogen Inj) 4,000 units UNSCH PRN IV PUSH 11/10/17 11:45 11/11/17 18:10 (Gelfoam 12 Mm/7 Mm Top) 1 foam UNSCH PRN TOP 11/10/17 11:45 (Diflucan) 200 mg DAILY PO 11/12/17 09:00 11/23/17 08:57 (Deltasone) 10 mg BID PO 11/16/17 21:00 11/23/17 08:57 A/P Assessment and Plan (1) COPD (chronic obstructive pulmonary disease) ICD Code: J44.9 - Chronic obstructive pulmonary disease Status: Chronic (2) Hypoxia ICD Code: R09.02 - Hypoxia Status: Acute (3) Chronic back pain ICD Code: M54.9 - Dorsalgia, unspecified; G89.29 - Other chronic pain Status: Acute (4) MRSA bacteremia ICD Code: R78.81 - Bacteremia Status: Acute 47-year-old female admitted secondary to an exacerbation of back pain suspected to be T11-T12 osteomyelitis, with persisting MRSA bacteremia. 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 To consider repeat MRI of the later this week. Continue daptomycin and Diflucan per infectious disease. Follow cultures. Repeat cultures today MRI showed abnormal signal involving the dura in the lower thoracic and upper lumbar spine with heterogenous enhancement of T11 and T12 suggest underlying infectious process/osteomyelitis. No obvious epidural collection, BC (+) 10/31-11/04 Diane albicans (+) BC, likely line, removed 11/09 (originally placed 11/02), complete course of Levaquin for Pneumonia, Lung Nodules Multiple small parenchymal lung nodules noted on CT of the chest, recommended follow-up, ?emboli Acute kidney injury: Secondary to acute tubular necrosis contrast and vancomycin. Patient has developed acute tubular necrosis after receiving contrast studies and she was on IV vancomycin Appreciate nephrology following. Status post hemodialysis on 11/11. 11/13. Nonoliguric. Improving Creatinine 2.35 on hold HD. Renal functions improving Vas-Cath Hemodialysis on hold per nephrology Follow BMP Avoid nephrotoxins Suspected pneumonia Completed course of Levaquin. Symptoms resolved. Hypertension Controlled COPD continue DuoNeb, Symbicort, Mucinex. Continue to wean oral prednisone now on 10 mg daily for four more days until Obesity Strongly recommended diet and exercise as outpatient Chronic back pain continue Flexeril, Valium, hydromorphone as needed. DVT prophylaxis Lovenox No changes to anterior assessment. Discharge Planning Continue IV Antibiotics per ID recs. Follow renal functions. Rayo Deluca MD Nov 23, 2017 17:56
[2017-11-23] MEDS: MONTELUKAST SODIUM 10 MG TAB PO SCH (22:00)
[2017-11-24] VITALS (10 sets, daily range): BP systolic 128–156; BP diastolic 69–92; PULSE 73–91; RESP 18; TEMP 97.6–98.6; O2SAT 93–97
[2017-11-24] MEDS: CYCLOBENZAPRINE HCL 10 MG TAB PO PRN ×3 (03:07→19:15)
[2017-11-24] MEDS: HYDROmorphone HCL 4 MG TAB PO PRN ×6 (03:07→22:59)
[2017-11-24] MEDS: DIAZEPAM 5 MG TAB PO PRN ×3 (07:01→22:59)
[2017-11-24 08:18] LABS: C-REACTIVE PROTEIN 1.01 MG/DL (0.00-0.30); CALCIUM 8.5 MG/DL (8.5-10.1); CREATININE 2.28 MG/DL (0.50-1.00)
[2017-11-24] MEDS: BENZONATATE 100 MG CAP PO SCH ×3 (08:53→17:31)
[2017-11-24] MEDS: DULoxetine HCl DR 30 MG CAP PO SCH (08:53)
[2017-11-24] MEDS: guaiFENesin E.R. 600 MG TAB PO SCH ×2 (08:53→20:52)
[2017-11-24] MEDS: ASPIRIN 325 MG TAB PO SCH (08:53)
[2017-11-24] MEDS: LACTOBACILLUS ACIDOPHILUS TAB PO SCH ×3 (08:54→17:30)
[2017-11-24] MEDS: NIFEdipine 60 MG SUSTAINED RELEASE TAB PO SCH (08:54)
[2017-11-24] MEDS: FLUCONAZOLE 200 MG TAB PO SCH (08:54)
[2017-11-24] MEDS: predniSONE 10 MG TAB PO SCH (08:54)
[2017-11-24] MEDS: DOCUSATE SODIUM 100 MG CAP PO SCH ×2 (08:54→20:52)
[2017-11-24] MEDS: BUDESONIDE-FORMOTEROL 160/4.5 MCG INHALER INH SCH ×2 (09:00→20:52)
[2017-11-24] MEDS: SODIUM CHLORIDE 0.9% FLUSH 10 ML FLUSH IV FLUSH SCH ×3 (09:01→20:52)
--- NOTE | 2017-11-24 10:57 | HHI.NPPN ---
Subjective History of Present Illness 47 year old with sepsis now with ARF, thoracic spine fluid collection Additional Remarks Patient doing okay. Review of Systems Respiratory Lungs: SOB Respiratory Remarks Chronic SOB Objective Data Data Vital Signs Date Time Temp Pulse Resp B/P (MAP) Pulse Ox O2 Delivery O2 Flow Rate FiO2 11/24/17 08:00 98.0 73 18 129/83 (98) 96 11/24/17 07:00 Nasal Cannula 2.00 11/24/17 05:40 98.3 91 18 139/75 (96) 93 11/24/17 04:00 85 11/24/17 00:55 98.4 83 18 138/77 (97) 96 11/24/17 00:00 80 11/23/17 22:02 97 Nasal Cannula 2.00 11/23/17 21:30 Nasal Cannula 2.00 11/23/17 21:19 97.4 87 18 141/95 (110) 96 11/23/17 20:00 73 11/23/17 16:00 76 11/23/17 15:34 97.7 84 18 125/68 (87) 96 11/23/17 12:00 71 11/23/17 11:25 98.0 64 18 139/81 (100) 98 -: 11/23/17 0632 11/24/17 0735 Physical Exam General Appearance: Well Developed, Well Nourished Neck Neck Exam: Neck Supple Pulmonary Resp Exam: Clear Bilaterally, Breath Sounds Equal Cardiology CV Exam: Regular, Normal Sinus Rhythm Gastrointestinal/Abdomen GI Exam: Soft, Distended Extremeties Extremities Exam: No Edema Neurologic Neuro Exam: Alert, Awake, Oriented Assessment/Plan Problem List: (1) Acute renal failure ICD Codes: N17.9 - Acute kidney failure, unspecified Plan: Patient has developed acute tubular necrosis after receiving contrast studies and she was on IV vancomycin Patient is nonoliguric Last hemodialysis was on 11/13. Hemodialysis stopped Creatinine improving at 2.2 K 4.4 Follow BMP and urinary output. Excellent recovery Patient is on daptomycin and Diflucan I will follow as needed (2) Osteomyelitis ICD Codes: M86.9 - Osteomyelitis, unspecified Plan: thoracic spine she is getting daptomycin (3) Bacteremia ICD Codes: R78.81 - Bacteremia (4) MRSA bacteremia ICD Codes: R78.81 - Bacteremia Status: Acute Plan: On daptomycin and ceftaroline (5) Chronic back pain ICD Codes: M54.9 - Dorsalgia, unspecified; G89.29 - Other chronic pain Status: Acute Plan: Possible osteomyelitis (6) COPD with acute exacerbation ICD Codes: J44.1 - Chronic obstructive pulmonary disease with (acute) exacerbation Status: Acute Plan: Continue with current treatment Problem Qualifiers (1) Acute renal failure: Qualified Codes: N17.0 - Acute kidney failure with tubular necrosis (2) Chronic back pain: Qualified Codes: M54.5 - Low back pain; G89.29 - Other chronic pain David Sales MD Nov 24, 2017 10:57
[2017-11-24] MEDS: ENOXAPARIN SODIUM 30 MG/0.3 ML SYRINGE SQ SCH (11:11)
[2017-11-24] MEDS ORDERED: HYDROmorphone HCL PF 0.5 MG/0.5 ML SYRINGE IV PUSH PRN (12:15)
--- NOTE | 2017-11-24 12:57 | RADRPT ---
EXAM DATE/TIME: 11/24/2017 12:11 [facility] COMPARISON: MRI THORACIC SPINE W & W/O CONTRAST, November 01, 2017, 17:21. INDICATIONS : Pain. Prior abnormal MRI. MEDICAL HISTORY : Rheumatoid arthritis. Chronic obstructive pulmonary disease. SURGICAL HISTORY : section. Tonsillectomy. Left elbow surgery. ENCOUNTER: Subsequent ACUITY: 1 month PAIN SCORE: 4/10 LOCATION: mid back. TECHNIQUE: Multiplanar multisequence MRI of the thoracic spine was performed. FINDINGS: VERTEBRA: Increased diffuse bone marrow signal abnormality of the T11 and T12 vertebral bodies are. Diffuse hyp erintensity is seen on the T2-weighted images and diffuse hypointensity is seen on the T1-weighted im ages. There is new increased signal within the T11-12 intervertebral disc. There is also slight incre ase in prevertebral soft tissue signal abnormality. The soft tissue abnormality is isointense to the vertebral body abnormality. No evidence of extension of signal abnormality into the central canal. No central canal narrowing. ALIGNMENT: Normal. CORD: Normal position and configuration. All of the other intervertebral disc levels are within normal limits. No evidence of central canal na rrowing. No evidence of neuroforaminal narrowing. CONCLUSION: Increased diffuse signal abnormality of the T11 and T12 vertebral bodies as well as s ignal abnormality of the T11-12 disc and adjacent prevertebral soft tissues. These findings have prog ressed when compared to the prior examination of 11/01/2017. Findings and progression suspicious for di scitis/osteomyelitis. No evidence of extension into the central canal. No central canal narrowing. Ve rtebral body height and shape within normal limits. Also in the differential diagnosis is dialysis re lated spondyloarthropathy. Fito Walton MD on November 24, 2017 at 12:39 Board Certified Radiologist. This report was verified electronically.
--- NOTE | 2017-11-24 15:38 | HHI.PR ---
Subjective Remarks states some loose stools from Kayexalate po appetite improving low back pain- on pain meds round the clock- up and getting around no fever but states gets night sweats Objective Vitals Vital Signs Date Time Temp Pulse Resp B/P (MAP) Pulse Ox O2 Delivery O2 Flow Rate FiO2 11/24/17 12:00 98.5 77 18 135/86 (102) 97 11/24/17 11:14 Nasal Cannula 2.00 11/24/17 08:00 98.0 73 18 129/83 (98) 96 11/24/17 07:00 Nasal Cannula 2.00 11/24/17 05:40 98.3 91 18 139/75 (96) 93 11/24/17 04:00 85 11/24/17 00:55 98.4 83 18 138/77 (97) 96 11/24/17 00:00 80 11/23/17 22:02 97 Nasal Cannula 2.00 11/23/17 21:30 Nasal Cannula 2.00 11/23/17 21:19 97.4 87 18 141/95 (110) 96 11/23/17 20:00 73 11/23/17 16:00 76 I/O 11/23/17 11/23/17 11/23/17 11/24/17 11/24/17 11/24/17 07:00 15:00 23:00 07:00 15:00 23:00 Intake Total 500 ml 720 ml 1070 ml Output Total 600 ml Balance 500 ml 120 ml 1070 ml Intake Oral 500 ml 720 ml 1070 ml Output Urine Total 600 ml # Voids 3 8 # Bowel Movements 0 Result Diagram: 11/23/17 0632 11/24/17 0735 Imaging Last Impressions Thoracic Spine MRI 11/24/17 0000 Signed Impressions: Service Date/Time: Friday, November 24, 2017 12:11 - CONCLUSION: Increased diffuse signal abnormality of the T11 and T12 vertebral bodies as well as signal abnormality of the T11-12 disc and adjacent prevertebral soft tissues. These findings have progressed when compared to the prior examination of 11/01/2017. Findings and progression suspicious for discitis/osteomyelitis. No evidence of extension into the central canal. No central canal narrowing. Vertebral body height and shape within normal limits. Also in the differential diagnosis is dialysis related spondyloarthropathy. Fito Walton MD Central Venous Line 4/20/18 0000 Signed Impressions: Service Date/Time: Monday, November 20, 2017 00:00 - CONCLUSION: Uncomplicated central venous catheter removal. Domenic Pulido MD Catheter Placement X-Ray 11/10/17 0600 Signed Impressions: Service Date/Time: Friday, November 10, 2017 08:52 - CONCLUSION: Uncomplicated line placement as above. Rip Camarillo MD Chest CT 11/03/17 0000 Signed Impressions: Service Date/Time: Friday, November 03, 2017 22:37 - CONCLUSION: Minimal effusions. Mild basilar atelectasis. Patchy areas of minimal airspace infiltrate. Multiple small parenchymal lung nodules which should be followed Domenic Pulido MD Abdomen/Pelvis CT 11/03/17 0000 Signed Impressions: Service Date/Time: Friday, November 03, 2017 22:37 - CONCLUSION: 1. Small bilateral pleural effusions with mild basilar atelectasis the lungs. No acute findings within the abdomen and pelvis. Moderate constipation of the right colon. Melchor Caceres MD Lumbar Spine X-Ray 11/01/17 0000 Signed Impressions: Service Date/Time: Wednesday, November 01, 2017 18:18 - CONCLUSION: No acute disease. Valente Prasad MD Lumbar Spine MRI 11/01/17 0000 Signed Impressions: Service Date/Time: Wednesday, November 01, 2017 17:21 - CONCLUSION: Abnormal signal involving the dura in the lower thoracic and upper lumbar spine with heterogeneous enhancement of T11 and T12 suggest underlying infectious process/osteomyelitis. No obvious epidural collections at this time.. Valente Prasad MD Chest X-Ray 10/30/172031 Signed Impressions: Service Date/Time: Monday, October 30, 2017 21:48 - CONCLUSION: No acute disease. Domenic Davis MD Objective Remarks awake and alert, anicteric no rales- no rales, no wheezing regular rhythm abdomen flabby, soft, nontender extremities- moves both LE spontaneously - Procedures Echocardiogram 11/03/2017 The left ventricular systolic function is low normal with an estimated ejection fraction in the range of 50- 55%. Trace mitral valve regurgitation. There is trace tricuspid valve regurgitation. A/P Problem List: (1) COPD (chronic obstructive pulmonary disease) ICD Code: J44.9 - Chronic obstructive pulmonary disease Status: Chronic (2) Hypoxia ICD Code: R09.02 - Hypoxia Status: Acute (3) Chronic back pain ICD Code: M54.9 - Dorsalgia, unspecified; G89.29 - Other chronic pain Status: Acute (4) MRSA bacteremia ICD Code: R78.81 - Bacteremia Status: Acute Assessment and Plan 47-year-old female admitted secondary to an exacerbation of back pain suspected to be T11-T12 osteomyelitis, with persisting MRSA bacteremia. 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 Continue daptomycin and Diflucan per infectious disease. Follow cultures. Repeat cultures today MRI showed abnormal signal involving the dura in the lower thoracic and upper lumbar spine with heterogenous enhancement of T11 and T12 suggest underlying infectious process/osteomyelitis. No obvious epidural collection, BC (+) 10/31-11/04 Diane albicans (+) BC, likely line, removed 11/09 (originally placed 11/02), complete course of Levaquin for Pneumonia, Lung Nodules Multiple small parenchymal lung nodules noted on CT of the chest, recommended follow-up, ?emboli repeat MRI done - worsening - will d/w ID Acute kidney injury: Secondary to acute tubular necrosis contrast and vancomycin. Patient has developed acute tubular necrosis after receiving contrast studies and she was on IV vancomycin Appreciate nephrology following. Status post hemodialysis on 11/11. 11/13. Nonoliguric. Improving Creatinine 2.35 on hold HD. Renal functions stabilizing- non oliguric Vas-Cath Hemodialysis on hold per nephrology Follow BMP Avoid nephrotoxins Suspected pneumonia Completed course of Levaquin. Symptoms resolved. Hypertension Controlled on Procardia 60 mg XL daily prn Clonidine COPD continue DuoNeb, Symbicort, Mucinex. Continue to wean oral prednisone now on 10 mg daily for four more days until Obesity Strongly recommended diet and exercise as outpatient Chronic back pain continue pain meds DVT prophylaxis Lovenox No changes to anterior assessment. Discharge Planning Continue IV Antibiotics per ID recs. Follow renal functions. Problem Qualifiers (1) Chronic back pain: Qualified Codes: M54.5 - Low back pain; G89.29 - Other chronic pain Greg Graves MD Nov 24, 2017 15:38
[2017-11-24] MEDS: SODIUM CHLORIDE 0.9% IV SCH (20:51)
[2017-11-24] MEDS: DAPTOMYCIN IV SCH (20:51)
[2017-11-24] MEDS: MONTELUKAST SODIUM 10 MG TAB PO SCH (20:52)
[2017-11-25] VITALS (10 sets, daily range): BP systolic 112–144; BP diastolic 74–96; PULSE 80–98; RESP 17–18; TEMP 97.8–98.8; O2SAT 94–98
[2017-11-25] MEDS: HYDROmorphone HCL 4 MG TAB PO PRN ×6 (03:00→23:14)
[2017-11-25] MEDS: CYCLOBENZAPRINE HCL 10 MG TAB PO PRN ×3 (03:00→20:44)
[2017-11-25] MEDS: DIAZEPAM 5 MG TAB PO PRN ×3 (06:50→23:14)
--- NOTE | 2017-11-25 09:03 | HHI.IDPN ---
Subjective Subjective Remarks Patient is a 47-year-old female, with known history of asthma, presented to the hospital complaining of severe low back pain for 3 days, with shortness of breath. She has some cough but she was afraid to cough because it worsens her back pain. She was also having fever and chills. Denies any chest pain, or any urinary complaints. She's had some constipation. The pain in her back goes like it's muscular, but it is now coming shooting pain that goes up her upper spine. 2 blood cultures done on admission are now reported as growing MRSA. Her chest x-rays normal. He has been getting worse in the back. Her WBC is elevated. She is getting Decadron and Levaquin for her pulmonary problem. 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 She had an admission back in August for labial abscess and the culture had MRSA. She was not bacteremic at that time. Infectious disease consultation has been requested to evaluate the patient. Notes reviewed. Feels better NO fever documented No diarrhea Voiding ok Creatinine slowly decreasing Vas-Cath has been removed Repeat MRI with increased signal, no fluid collection CRP better ESR same No rash or itching CT A/P and chest, no abscess, has some nodules in lung MRI showed abnormal signal involving the dura in the lower thoracic and upper lumbar spine with heterogenous enhancement of T11 and T12 suggest underlying infectious process/osteomyelitis. No obvious epidural collection. Echo showed EF 50-55%. Wall thickness normal. Normal left ventricular. Trace MVR. Trace TVR. No vegetation KIESHA unremarkable Antibiotics Daptomycin IV Diflucan Current Medications Medications (Trade) Dose Ordered Sig/Juanpablo Route Start Time Stop Time Status Last Admin (Duoneb Neb) 1 ampule Q2HR NEB PRN NEB 10/30/17 22:45 (Mucinex Er) 600 mg BID PO 10/31/17 09:00 11/24/17 20:52 (NS Flush) 2 ml UNSCH PRN IV FLUSH 10/30/17 22:45 11/10/17 05:25 (NS Flush) 2 ml BID IV FLUSH 10/31/17 09:00 11/24/17 20:52 (Zofran Inj) 4 mg Q6H PRN IVP 10/30/17 22:45 (Tylenol) 650 mg Q6H PRN PO 10/30/17 22:45 10/31/17 07:11 (Milk Of Magnesia Liq) 30 ml Q12H PRN PO 10/30/17 22:45 (Senokot) 17.2 mg Q12H PRN PO 10/30/17 22:45 10/31/17 07:41 (Dulcolax Supp) 10 mg DAILY PRN RECTAL 10/30/17 22:45 (Lactulose Liq) 30 ml DAILY PRN PO 10/30/17 22:45 (Aspirin) 325 mg DAILY PO 10/31/17 09:00 11/24/17 08:53 (Symbicort 160-4.5 Mcg Inh) 2 puff Q12HR INH 10/31/17 09:00 11/24/17 20:52 (Cymbalta Dr) 30 mg DAILY PO 10/31/17 09:00 11/24/17 08:53 (Dilaudid) 4 mg Q4H PRN PO 10/30/17 22:45 11/25/17 06:47 (Singulair) 10 mg HS PO 10/31/17 21:00 11/24/17 20:52 (Valium) 5 mg Q8H PRN PO 10/30/17 23:00 11/25/17 06:50 (Tessalon) 100 mg TID PO 10/31/17 13:00 11/24/17 17:31 (Flexeril) 5 mg Q8H PRN PO 10/31/17 10:45 11/25/17 03:00 (Lovenox Inj) 30 mg Q24H SQ 10/31/17 11:00 11/24/17 11:11 (Pill Splitter) 1 ea UNSCH PRN OTHER 10/31/17 11:00 (NS Flush) DAILY IV FLUSH 11/03/17 09:00 11/24/17 09:01 (NS Flush) UNSCH PRN IV FLUSH 11/02/17 14:15 (Colace) 100 mg BID PO 11/04/17 21:00 11/24/17 20:52 (Catapres) 0.1 mg Q6H PRN PO 11/04/17 13:45 11/10/17 20:55 (Procardia Xl) 60 mg DAILY PO 11/06/17 09:00 11/24/17 08:54 Daptomycin 970 mg/ Sodium Chloride 100 ml @ 200 mls/hr Q48H IV 11/08/17 21:00 11/24/17 20:51 (NS Flush) UNSCH PRN IV FLUSH 11/10/17 09:45 (Heparin Inj) UNSCH PRN IV FLUSH 11/10/17 09:45 11/13/17 15:16 (Lactinex) 1 tab TID PO 11/10/17 13:00 11/24/17 17:30 Sodium Chloride 1,000 ml @ 0 mls/hr Q0M PRN OTHER 11/10/17 11:38 (Heparin Inj) 8,000 units UNSCH PRN IV FLUSH 11/10/17 11:45 Sodium Chloride 1,000 ml @ 200 mls/hr Q5H PRN IV 11/10/17 11:38 Sodium Chloride 1,000 ml @ 0 mls/hr Q0M PRN OTHER 11/10/17 11:38 (Mannitol Inj) 12.5 gm UNSCH PRN IV 11/10/17 11:45 Albumin Human 100 ml @ 60 mls/hr UNSCH PRN IV 11/10/17 11:45 (NS Flush) 5 ml UNSCH PRN IV FLUSH 11/10/17 11:45 (Heparin Inj) UNSCH PRN .XX 11/10/17 11:45 11/11/17 18:10 (Gentamicin Inj) 20 mg UNSCH PRN OTHER 11/10/17 11:45 11/13/17 15:17 (Zofran Inj) 4 mg UNSCH PRN IV PUSH 11/10/17 11:45 11/13/17 14:30 (Tylenol) 650 mg UNSCH PRN PO 11/10/17 11:45 (Benadryl) 25 mg UNSCH PRN PO 11/10/17 11:45 (Nitrostat Sl) 0.4 mg UNSCH PRN SL 11/10/17 11:45 (Catapres) 0.1 mg UNSCH PRN PO 11/10/17 11:45 (Epogen Inj) 4,000 units UNSCH PRN IV PUSH 11/10/17 11:45 11/11/17 18:10 (Gelfoam 12 Mm/7 Mm Top) 1 foam UNSCH PRN TOP 11/10/17 11:45 (Diflucan) 200 mg DAILY PO 11/12/17 09:00 11/24/17 08:54 (Deltasone) 10 mg DAILY PO 11/24/17 09:00 11/27/17 14:00 11/24/17 08:54 (Dilaudid Pf Inj) 0.5 mg Q3H PRN IV PUSH 11/24/17 12:15 Lines LIJ central line RI vascat Past Medical History Livedo vasculopathy, 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 COPD. GERD. Obesity. 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 Labial abscess, drained Past Surgical History Screws / plats in left elbow Left breast abscess drainage I and D labial abscess Allergies: Coded Allergies: No Known Allergies (Verified Allergy, Unknown, 11/09/17) Objective . Vital Signs Date Time Temp Pulse Resp B/P (MAP) Pulse Ox O2 Delivery O2 Flow Rate FiO2 11/25/17 04:09 98.5 87 18 136/77 (96) 97 11/25/17 04:00 83 11/25/17 00:47 98.8 88 18 141/74 (96) 94 11/25/17 00:00 Nasal Cannula 2.00 11/25/17 00:00 98 11/24/17 20:03 97.6 91 18 156/92 (113) 96 11/24/17 20:00 82 11/24/17 20:00 Nasal Cannula 2.00 11/24/17 17:10 97 Nasal Cannula 2.00 11/24/17 16:00 83 11/24/17 16:00 98.6 88 18 128/69 (88) 95 11/24/17 12:00 79 11/24/17 12:00 98.5 77 18 135/86 (102) 97 11/24/17 11:14 Nasal Cannula 2.00 . Laboratory Tests Test 11/24/17 07:35 Erythrocyte Sedimentation Rate 37 mm/hr Laboratory Tests Test 11/24/17 07:35 11/25/17 06:45 Blood Urea Nitrogen 48 MG/DL Creatinine 2.28 MG/DL Random Glucose 79 MG/DL Calcium Level 8.5 MG/DL Sodium Level 139 MEQ/L Potassium Level 4.4 MEQ/L Chloride Level 103 MEQ/L Carbon Dioxide Level 28.0 MEQ/L Anion Gap 8 MEQ/L Estimat Glomerular Filtration Rate 23 ML/MIN C-Reactive Protein 1.01 MG/DL Total Creatine Kinase 23 U/L Imaging Last Impressions Chest CT 11/03/17 0000 Signed Impressions: Service Date/Time: Friday, November 03, 2017 22:37 - CONCLUSION: Minimal effusions. Mild basilar atelectasis. Patchy areas of minimal airspace infiltrate. Multiple small parenchymal lung nodules which should be followed Domenic Pulido MD Abdomen/Pelvis CT 11/03/17 Signed Impressions: Service Date/Time: Friday, November 03, 2017 22:37 - CONCLUSION: 1. Small bilateral pleural effusions with mild basilar atelectasis the lungs. No acute findings within the abdomen and pelvis. Moderate constipation of the right colon. Melchor Caceres MD Central Venous Line 11/02/17 0000 Signed Impressions: Service Date/Time: Thursday, November 02, 2017 14:08 - CONCLUSION: Uncomplicated line placement as above. Robert Navarro MD Thoracic Spine MRI 11/01/17 0000 Signed Impressions: Service Date/Time: Wednesday, November 01, 2017 17:21 - CONCLUSION: There is heterogeneous enhancement T11 and T12 with surrounding perivertebral edema and dural enhancement anterior and posterior to the cord. A well-defined mass is not seen. Intervertebral disc signal intensity is normal without enhancement to suggest discitis, however an osteomyelitis or other underlying infectious process should be excluded. Valente Prasad MD Lumbar Spine X-Ray 11/01/17 Signed Impressions: Service Date/Time: Wednesday, November 01, 2017 18:18 - CONCLUSION: No acute disease. Valente Prasad MD Lumbar Spine MRI 11/01/17 0000 Signed Impressions: Service Date/Time: Wednesday, November 01, 2017 17:21 - CONCLUSION: Abnormal signal involving the dura in the lower thoracic and upper lumbar spine with heterogeneous enhancement of T11 and T12 suggest underlying infectious process/osteomyelitis. No obvious epidural collections at this time.. Valente Prasad MD Chest X-Ray 10/30/172031 Signed Impressions: Service Date/Time: Monday, October 30, 2017 21:48 - CONCLUSION: No acute disease. Domenic Davis MD Physical Exam GENERAL: NAD. Awake and alert. SKIN: Warm and dry. No generalized rash, no ecchymoses and no evidence of embolic lesions. Has brownish pigmentation on both lower legs HEAD: Atraumatic. Normocephalic. EYES: [place] conjunctiva. No petechia or hemorrhage. Extraocular movements full and intact. No scleral icterus. No injection or drainage. EARS, NOSE AND THROAT: Nose without bleeding or purulent nasal discharge. No sinus tenderness. Mucous membranes pink and moist. No oral lesions noted. No oral thrush. NECK: Trachea midline. Nontender supple CARDIAC: Regular rate and rhythm. No murmurs, rubs or gallops heard RESPIRATORY: Diminished breath sounds but clear to auscultation. ABDOMEN: Soft, non-tender, nondistended. Bowel sounds present and normoactive. EXTREMITIES: No clubbing, cyanosis, or edema. No calf tenderness NEUROLOGICAL: Grossly nonfocal PSYCHIATRIC: Appropriate mood and affect. Normal insight and judgment LINE: No evidence of infection. Assessment & Plan Remarks MRSA septicemia, secondary to T11-T12 osteo - KIESHA negative - -baseline ESR 38, CRP 11 -CRP better - MRI showed abnormal signal involving the dura in the lower thoracic and upper lumbar spine with heterogenous enhancement of T11 and T12 suggest underlying infectious process/osteomyelitis. No obvious epidural collection - BC (+) 10/31-11/04 Diane albicans (+) BC, likely line, line removed 11/09 (originally placed 11/02) Severe low back pain, due to osteo - better Acute kidney injury - likely due to IV contrast - ?Vanco -Slowly improving, good urine output COPD exacerbation, better Suspected PNA, better -CT Chest minimal effusions, mild basilar atelectasis. Patchy areas of minimal airspace infiltrate. -completed course of Levaquin Lung nodules -Multiple small parenchymal lung nodules noted on CT of the chest, recommended follow-up, ?emboli Prior Hx labial abscess Aug 2017 Hx livedo vasculopathy Recommendations Continue daptomycin -Plan 8-12 weeks IV Continue Diflucan Monitor temps Monitor progress Place a PICC line Remove central line ?D/C plans - patient has no insurance - will ask CM Explained plan to patient D/W Jazmín Boss MD Nov 25, 2017 09:03
--- NOTE | 2017-11-25 09:07 | HHI.PR ---
Subjective Remarks no nausea or vomiting, no diarrhea, + formed stools complains of pain low back- - good pain control patient with history of chronic pain ff by pain management clinic in [facility] Objective Vitals Vital Signs Date Time Temp Pulse Resp B/P (MAP) Pulse Ox O2 Delivery O2 Flow Rate FiO2 11/25/17 04:09 98.5 87 18 136/77 (96) 97 11/25/17 04:00 83 11/25/17 00:47 98.8 88 18 141/74 (96) 94 11/25/17 00:00 Nasal Cannula 2.00 11/25/17 00:00 98 11/24/17 20:03 97.6 91 18 156/92 (113) 96 11/24/17 20:00 82 11/24/17 20:00 Nasal Cannula 2.00 11/24/17 17:10 97 Nasal Cannula 2.00 11/24/17 16:00 83 11/24/17 16:00 98.6 88 18 128/69 (88) 95 11/24/17 12:00 79 11/24/17 12:00 98.5 77 18 135/86 (102) 97 11/24/17 11:14 Nasal Cannula 2.00 I/O 11/24/17 11/24/17 11/24/17 11/25/17 11/25/17 11/25/17 07:00 15:00 23:00 07:00 15:00 23:00 Intake Total 1070 ml 240 ml Balance 1070 ml 240 ml Intake Oral 1070 ml 240 ml # Voids 8 3 3 # Bowel Movements 0 0 1 Result Diagram: 11/23/17 0632 11/24/17 0735 Imaging Last Impressions Thoracic Spine MRI 11/24/17 0000 Signed Impressions: Service Date/Time: Friday, November 24, 2017 12:11 - CONCLUSION: Increased diffuse signal abnormality of the T11 and T12 vertebral bodies as well as signal abnormality of the T11-12 disc and adjacent prevertebral soft tissues. These findings have progressed when compared to the prior examination of 11/01/2017. Findings and progression suspicious for discitis/osteomyelitis. No evidence of extension into the central canal. No central canal narrowing. Vertebral body height and shape within normal limits. Also in the differential diagnosis is dialysis related spondyloarthropathy. Fito Walton MD Central Venous Line 11/20/17 0000 Signed Impressions: Service Date/Time: Monday, November 20, 2017 00:00 - CONCLUSION: Uncomplicated central venous catheter removal. Domenic Pulido MD Catheter Placement X-Ray 11/10/17 0600 Signed Impressions: Service Date/Time: Friday, November 10, 2017 08:52 - CONCLUSION: Uncomplicated line placement as above. Rip Camarillo MD Chest CT 11/03/17 0000 Signed Impressions: Service Date/Time: Friday, November 03, 2017 22:37 - CONCLUSION: Minimal effusions. Mild basilar atelectasis. Patchy areas of minimal airspace infiltrate. Multiple small parenchymal lung nodules which should be followed Domenic Pulido MD Abdomen/Pelvis CT 11/03/17 0000 Signed Impressions: Service Date/Time: Friday, November 03, 2017 22:37 - CONCLUSION: 1. Small bilateral pleural effusions with mild basilar atelectasis the lungs. No acute findings within the abdomen and pelvis. Moderate constipation of the right colon. Melchor Caceres MD Lumbar Spine X-Ray 11/01/17 0000 Signed Impressions: Service Date/Time: Wednesday, November 01, 2017 18:18 - CONCLUSION: No acute disease. Valente Prasad MD Lumbar Spine MRI 11/01/17 0000 Signed Impressions: Service Date/Time: Wednesday, November 01, 2017 17:21 - CONCLUSION: Abnormal signal involving the dura in the lower thoracic and upper lumbar spine with heterogeneous enhancement of T11 and T12 suggest underlying infectious process/osteomyelitis. No obvious epidural collections at this time.. Valente Prasad MD Chest X-Ray 10/30/172031 Signed Impressions: Service Date/Time: Monday, October 30, 2017 21:48 - CONCLUSION: No acute disease. Domenic Davis MD Objective Remarks awake and alert, anicteric Vas cath in place no rales- no rales, no wheezing regular rhythm abdomen flabby, soft, nontender extremities- moves both LE spontaneously - Procedures Echocardiogram 11/03/2017 The left ventricular systolic function is low normal with an estimated ejection fraction in the range of 50- 55%. Trace mitral valve regurgitation. There is trace tricuspid valve regurgitation. A/P Problem List: (1) COPD (chronic obstructive pulmonary disease) ICD Code: J44.9 - Chronic obstructive pulmonary disease Status: Chronic (2) Hypoxia ICD Code: R09.02 - Hypoxia Status: Acute (3) Chronic back pain ICD Code: M54.9 - Dorsalgia, unspecified; G89.29 - Other chronic pain Status: Acute (4) MRSA bacteremia ICD Code: R78.81 - Bacteremia Status: Acute Assessment and Plan 47-year-old female admitted secondary to an exacerbation of back pain suspected to be T11-T12 osteomyelitis, with persisting MRSA bacteremia. 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 Continue daptomycin and Diflucan per infectious disease. Follow cultures. Repeat cultures today MRI showed abnormal signal involving the dura in the lower thoracic and upper lumbar spine with heterogenous enhancement of T11 and T12 suggest underlying infectious process/osteomyelitis. No obvious epidural collection, BC (+) 10/31-11/04 Diane albicans (+) BC, likely line, removed 11/09 (originally placed 11/02), complete course of Levaquin for Pneumonia, Lung Nodules Multiple small parenchymal lung nodules noted on CT of the chest, recommended follow-up, ?emboli repeat MRI done - worsening - d/w ID- no pockets place PICC line Acute kidney injury: Secondary to acute tubular necrosis contrast and vancomycin. Patient has developed acute tubular necrosis after receiving contrast studies and she was on IV vancomycin Appreciate nephrology following. Status post hemodialysis on 11/11. 11/13. Nonoliguric. Improving Creatinine 2.35 on hold HD. Renal functions stabilizing- non oliguric Vas-Cath - remove today . Off HD non oliguric Follow BMP Avoid nephrotoxins Suspected pneumonia Completed course of Levaquin. Symptoms resolved. Hypertension Controlled on Procardia 60 mg XL daily prn Clonidine COPD continue DuoNeb, Symbicort, Mucinex. Continue to wean oral prednisone now on 10 mg daily for four more days until Obesity Strongly recommended diet and exercise as outpatient Chronic back pain continue pain meds as OP on Dilaudid- ff by pain management in [place] DVT prophylaxis Lovenox No changes to anterior assessment. Discharge Planning Continue IV Antibiotics per ID recs. Problem Qualifiers (1) Chronic back pain: Qualified Codes: M54.5 - Low back pain; G89.29 - Other chronic pain Greg Graves MD Nov 25, 2017 09:07
[2017-11-25] MEDS: NIFEdipine 60 MG SUSTAINED RELEASE TAB PO SCH (10:21)
[2017-11-25] MEDS: ASPIRIN 325 MG TAB PO SCH (10:22)
[2017-11-25] MEDS: predniSONE 10 MG TAB PO SCH (10:22)
[2017-11-25] MEDS: LACTOBACILLUS ACIDOPHILUS TAB PO SCH ×3 (10:22→17:32)
[2017-11-25] MEDS: FLUCONAZOLE 200 MG TAB PO SCH (10:22)
[2017-11-25] MEDS: DOCUSATE SODIUM 100 MG CAP PO SCH ×2 (10:22→20:43)
[2017-11-25] MEDS: DULoxetine HCl DR 30 MG CAP PO SCH (10:23)
[2017-11-25] MEDS: SODIUM CHLORIDE 0.9% FLUSH 10 ML FLUSH IV FLUSH SCH ×3 (10:24→20:42)
[2017-11-25] MEDS: BUDESONIDE-FORMOTEROL 160/4.5 MCG INHALER INH SCH ×2 (10:25→20:42)
[2017-11-25] MEDS: RIFAMPIN 150 MG CAP PO SCH ×2 (10:26→20:43)
[2017-11-25] MEDS: ENOXAPARIN SODIUM 30 MG/0.3 ML SYRINGE SQ SCH (11:09)
[2017-11-25] MEDS ORDERED: SODIUM CHLORIDE 0.9% FLUSH 10 ML FLUSH IV FLUSH PRN (13:45)
[2017-11-25] MEDS: MONTELUKAST SODIUM 10 MG TAB PO SCH (20:44)
[2017-11-26] VITALS (11 sets, daily range): BP systolic 121–142; BP diastolic 74–98; PULSE 78–98; RESP 16–20; TEMP 97.8–98.4; O2SAT 94–98
[2017-11-26] MEDS: HYDROmorphone HCL 4 MG TAB PO PRN ×5 (04:12→20:05)
[2017-11-26] MEDS: CYCLOBENZAPRINE HCL 10 MG TAB PO PRN ×3 (04:12→20:04)
[2017-11-26 06:16] LABS: ALBUMIN 3.2 GM/DL (3.4-5.0); AST (GOT) 12 U/L (15-37); BICARBONATE 27.9 MEQ/L (21.0-32.0); BLOOD UREA NITROGEN 43 MG/DL (7-18); CALCIUM 8.9 MG/DL (8.5-10.1); CHLORIDE 100 MEQ/L (98-107); GLOMERULAR FILTRATION RATE 27 ML/MIN (>89); GLUCOSE,RANDOM 75 MG/DL (74-106); SODIUM (NA) 136 MEQ/L (136-145)
[2017-11-26 06:18] LABS: ALT (GPT) 24 U/L (10-53)
[2017-11-26 06:20] LABS: ALKALINE PHOSPHATASE 89 U/L (45-117); TOTAL BILIRUBIN ADULT 0.4 MG/DL (0.2-1.0)
[2017-11-26] MEDS: SODIUM CHLORIDE 0.9% FLUSH 10 ML FLUSH IV FLUSH SCH ×4 (08:29→20:04)
[2017-11-26] MEDS: BUDESONIDE-FORMOTEROL 160/4.5 MCG INHALER INH SCH ×2 (08:29→20:03)
[2017-11-26] MEDS: FLUCONAZOLE 200 MG TAB PO SCH (08:31)
[2017-11-26] MEDS: RIFAMPIN 150 MG CAP PO SCH ×2 (08:31→20:04)
[2017-11-26] MEDS: ASPIRIN 325 MG TAB PO SCH (08:31)
[2017-11-26] MEDS: NIFEdipine 60 MG SUSTAINED RELEASE TAB PO SCH (08:31)
[2017-11-26] MEDS: DOCUSATE SODIUM 100 MG CAP PO SCH ×2 (08:31→20:04)
[2017-11-26] MEDS: DULoxetine HCl DR 30 MG CAP PO SCH (08:31)
[2017-11-26] MEDS: LACTOBACILLUS ACIDOPHILUS TAB PO SCH ×3 (08:31→16:14)
[2017-11-26] MEDS: predniSONE 10 MG TAB PO SCH (08:31)
[2017-11-26] MEDS: ENOXAPARIN SODIUM 30 MG/0.3 ML SYRINGE SQ SCH (11:54)
[2017-11-26] MEDS: DIAZEPAM 5 MG TAB PO PRN (12:07)
--- NOTE | 2017-11-26 12:20 | HHI.FF ---
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 [] May leave port accessed during therapy. [] May leave peripheral site accessed for duration of therapy. [x] If patient has SOB or respiratory distress, check oxygen saturation. If less than 90% or clinical signs of respiratory distress, administer oxygen at 2 L/min. via nasal cannula and notify physician. [x] Anaphylaxis/Reaction orders: * Stop infusion. * Keep IV line open with saline flush. * Notify physician. * Monitor vital signs every 15 minutes until symptoms resolve. * Check Oxygen saturation; Oxygen at 2 L/min. via nasal cannula if less than 90% or clinical signs of respiratory distress. * Administer diphenhydramine (Benadryl) 25 mg IV STAT, (unless patient has received as pre-med). May repeat once, if necessary. * Solu-Cortef 250 mg IVP over 30-60 seconds, use 100 mg vials for each dissolution. * Epinephrine (1mg/1 ml) 0.3 mg subcutaneously or IVP now with any signs of respiratory distress. * Check with physician for new additional pre-med orders if patient is re- challenged or re-treated. [x] May remove PICC line when treatment complete, after confirming with Physician. [x] If the patient is admitted to the hospital, the ED, or transferred via [facility] , complete transfer form including medication reconciliation order sheet. Laboratory Tests Weekly Labs: CBC w/diff, Creatinine, Serum CK Levels (Labs every Thursday - copy to mn) Greg Graves MD 11/27/17 0839: Infusion Therapy Patient Information Coded Allergies: No Known Allergies (Verified Allergy, Unknown, 11/09/17) Laboratory Tests Weekly Labs: CMP (CMP ), LFT's (Hepatic function test) (weekly with results to Dr. velez ) Jazmín Velez MD Nov 26, 2017 12:20 Greg Graves MD Nov 27, 2017 08:39
--- NOTE | 2017-11-26 12:26 | HHI.IDPN ---
Subjective Subjective Remarks Patient is a 47-year-old female, with known history of asthma, presented to the hospital complaining of severe low back pain for 3 days, with shortness of breath. She has some cough but she was afraid to cough because it worsens her back pain. She was also having fever and chills. Denies any chest pain, or any urinary complaints. She's had some constipation. The pain in her back goes like it's muscular, but it is now coming shooting pain that goes up her upper spine. 2 blood cultures done on admission are now reported as growing MRSA. Her chest x-rays normal. He has been getting worse in the back. Her WBC is elevated. She is getting Decadron and Levaquin for her pulmonary problem. 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 She had an admission back in August for labial abscess and the culture had MRSA. She was not bacteremic at that time. Infectious disease consultation has been requested to evaluate the patient. Notes reviewed. NO fever No diarrhea Voiding ok Creatinine slowly decreasing PICC has been placed Abx being arranged in the infusion clinic Repeat MRI with increased signal, no fluid collection CRP better ESR same No rash or itching CT A/P and chest, no abscess, has some nodules in lung MRI showed abnormal signal involving the dura in the lower thoracic and upper lumbar spine with heterogenous enhancement of T11 and T12 suggest underlying infectious process/osteomyelitis. No obvious epidural collection. Echo showed EF 50-55%. Wall thickness normal. Normal left ventricular. Trace MVR. Trace TVR. No vegetation KIESHA unremarkable Antibiotics Daptomycin IV Diflucan Current Medications Medications (Trade) Dose Ordered Sig/Juanpablo Route Start Time Stop Time Status Last Admin (Duoneb Neb) 1 ampule Q2HR NEB PRN NEB 10/30/17 22:45 (Mucinex Er) 600 mg BID PO 10/31/17 09:00 11/24/17 20:52 (NS Flush) 2 ml UNSCH PRN IV FLUSH 10/30/17 22:45 11/10/17 05:25 (NS Flush) 2 ml BID IV FLUSH 10/31/17 09:00 11/24/17 20:52 (Zofran Inj) 4 mg Q6H PRN IVP 10/30/17 22:45 (Tylenol) 650 mg Q6H PRN PO 10/30/17 22:45 10/31/17 07:11 (Milk Of Magnesia Liq) 30 ml Q12H PRN PO 10/30/17 22:45 (Senokot) 17.2 mg Q12H PRN PO 10/30/17 22:45 10/31/17 07:41 (Dulcolax Supp) 10 mg DAILY PRN RECTAL 10/30/17 22:45 (Lactulose Liq) 30 ml DAILY PRN PO 10/30/17 22:45 (Aspirin) 325 mg DAILY PO 10/31/17 09:00 11/24/17 08:53 (Symbicort 160-4.5 Mcg Inh) 2 puff Q12HR INH 10/31/17 09:00 11/24/17 20:52 (Cymbalta Dr) 30 mg DAILY PO 10/31/17 09:00 11/24/17 08:53 (Dilaudid) 4 mg Q4H PRN PO 10/30/17 22:45 11/25/17 06:47 (Singulair) 10 mg HS PO 10/31/17 21:00 11/24/17 20:52 (Valium) 5 mg Q8H PRN PO 10/30/17 23:00 11/25/17 06:50 (Tessalon) 100 mg TID PO 10/31/17 13:00 11/24/17 17:31 (Flexeril) 5 mg Q8H PRN PO 10/31/17 10:45 11/25/17 03:00 (Lovenox Inj) 30 mg Q24H SQ 10/31/17 11:00 11/24/17 11:11 (Pill Splitter) 1 ea UNSCH PRN OTHER 10/31/17 11:00 (NS Flush) DAILY IV FLUSH 11/03/17 09:00 11/24/17 09:01 (NS Flush) UNSCH PRN IV FLUSH 11/02/17 14:15 (Colace) 100 mg BID PO 11/04/17 21:00 11/24/17 20:52 (Catapres) 0.1 mg Q6H PRN PO 11/04/17 13:45 11/10/17 20:55 (Procardia Xl) 60 mg DAILY PO 11/06/17 09:00 11/24/17 08:54 Daptomycin 970 mg/ Sodium Chloride 100 ml @ 200 mls/hr Q48H IV 11/08/17 21:00 11/24/17 20:51 (NS Flush) UNSCH PRN IV FLUSH 11/10/17 09:45 (Heparin Inj) UNSCH PRN IV FLUSH 11/10/17 09:45 11/13/17 15:16 (Lactinex) 1 tab TID PO 11/10/17 13:00 11/24/17 17:30 Sodium Chloride 1,000 ml @ 0 mls/hr Q0M PRN OTHER 11/10/17 11:38 (Heparin Inj) 8,000 units UNSCH PRN IV FLUSH 11/10/17 11:45 Sodium Chloride 1,000 ml @ 200 mls/hr Q5H PRN IV 11/10/17 11:38 Sodium Chloride 1,000 ml @ 0 mls/hr Q0M PRN OTHER 11/10/17 11:38 (Mannitol Inj) 12.5 gm UNSCH PRN IV 11/10/17 11:45 Albumin Human 100 ml @ 60 mls/hr UNSCH PRN IV 11/10/17 11:45 (NS Flush) 5 ml UNSCH PRN IV FLUSH 11/10/17 11:45 (Heparin Inj) UNSCH PRN .XX 11/10/17 11:45 11/11/17 18:10 (Gentamicin Inj) 20 mg UNSCH PRN OTHER 11/10/17 11:45 11/13/17 15:17 (Zofran Inj) 4 mg UNSCH PRN IV PUSH 11/10/17 11:45 11/13/17 14:30 (Tylenol) 650 mg UNSCH PRN PO 11/10/17 11:45 (Benadryl) 25 mg UNSCH PRN PO 11/10/17 11:45 (Nitrostat Sl) 0.4 mg UNSCH PRN SL 11/10/17 11:45 (Catapres) 0.1 mg UNSCH PRN PO 11/10/17 11:45 (Epogen Inj) 4,000 units UNSCH PRN IV PUSH 11/10/17 11:45 11/11/17 18:10 (Gelfoam 12 Mm/7 Mm Top) 1 foam UNSCH PRN TOP 11/10/17 11:45 (Diflucan) 200 mg DAILY PO 11/12/17 09:00 11/24/17 08:54 (Deltasone) 10 mg DAILY PO 11/24/17 09:00 11/27/17 14:00 11/24/17 08:54 (Dilaudid Pf Inj) 0.5 mg Q3H PRN IV PUSH 11/24/17 12:15 Past Medical History Livedo vasculopathy, 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 COPD. GERD. Obesity. 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 Labial abscess, drained Past Surgical History Screws / plats in left elbow Left breast abscess drainage I and D labial abscess Allergies: Coded Allergies: No Known Allergies (Verified Allergy, Unknown, 11/09/17) Objective . Vital Signs Date Time Temp Pulse Resp B/P (MAP) Pulse Ox O2 Delivery O2 Flow Rate FiO2 11/26/17 11:15 95 Nasal Cannula 2.00 11/26/17 08:00 98.0 86 18 135/90 (105) 97 11/26/17 08:00 86 11/26/17 07:32 Room Air 11/26/17 05:20 97.9 86 16 134/98 (110) 97 11/26/17 04:00 90 11/26/17 00:11 86 11/26/17 00:00 97.9 85 16 136/91 (106) 97 11/25/17 20:00 97.8 84 17 135/79 (97) 97 11/25/17 19:00 Room Air 11/25/17 16:00 97.9 91 18 129/85 (100) 98 11/25/17 16:00 90 . Laboratory Tests Test 11/25/17 06:45 11/26/17 05:24 Total Creatine Kinase 23 U/L Blood Urea Nitrogen 43 MG/DL Creatinine 2.00 MG/DL Random Glucose 75 MG/DL Total Protein 7.0 GM/DL Albumin 3.2 GM/DL Calcium Level 8.9 MG/DL Alkaline Phosphatase 89 U/L Aspartate Amino Transf (AST/SGOT) 12 U/L Alanine Aminotransferase (ALT/SGPT) 24 U/L Total Bilirubin 0.4 MG/DL Sodium Level 136 MEQ/L Potassium Level 4.3 MEQ/L Chloride Level 100 MEQ/L Carbon Dioxide Level 27.9 MEQ/L Anion Gap 8 MEQ/L Estimat Glomerular Filtration Rate 27 ML/MIN Imaging Last Impressions Chest CT 11/03/17 Signed Impressions: Service Date/Time: Friday, November 03, 2017 22:37 - CONCLUSION: Minimal effusions. Mild basilar atelectasis. Patchy areas of minimal airspace infiltrate. Multiple small parenchymal lung nodules which should be followed Domenic Pulido MD Abdomen/Pelvis CT 11/03/17 Signed Impressions: Service Date/Time: Friday, November 03, 2017 22:37 - CONCLUSION: 1. Small bilateral pleural effusions with mild basilar atelectasis the lungs. No acute findings within the abdomen and pelvis. Moderate constipation of the right colon. Melchor Caceres MD Central Venous Line 11/02/17 Signed Impressions: Service Date/Time: Thursday, November 02, 2017 14:08 - CONCLUSION: Uncomplicated line placement as above. Robert Navarro MD Thoracic Spine MRI 11/01/17 Signed Impressions: Service Date/Time: Wednesday, November 01, 2017 17:21 - CONCLUSION: There is heterogeneous enhancement T11 and T12 with surrounding perivertebral edema and dural enhancement anterior and posterior to the cord. A well-defined mass is not seen. Intervertebral disc signal intensity is normal without enhancement to suggest discitis, however an osteomyelitis or other underlying infectious process should be excluded. Valente Prasad MD Lumbar Spine X-Ray 11/01/17 Signed Impressions: Service Date/Time: Wednesday, November 01, 2017 18:18 - CONCLUSION: No acute disease. Valente Prasad MD Lumbar Spine MRI 11/01/17 Signed Impressions: Service Date/Time: Wednesday, November 01, 2017 17:21 - CONCLUSION: Abnormal signal involving the dura in the lower thoracic and upper lumbar spine with heterogeneous enhancement of T11 and T12 suggest underlying infectious process/osteomyelitis. No obvious epidural collections at this time.. Valente Prasad MD Chest X-Ray 10/30/172031 Signed Impressions: Service Date/Time: Monday, October 30, 2017 21:48 - CONCLUSION: No acute disease. Domenic Davis MD Physical Exam GENERAL: NAD. Awake and alert. SKIN: Warm and dry. No generalized rash, no ecchymoses and no evidence of embolic lesions. Has brownish pigmentation on both lower legs HEAD: Atraumatic. Normocephalic. EYES: Verdon conjunctiva. No petechia or hemorrhage. Extraocular movements full and intact. No scleral icterus. No injection or drainage. EARS, NOSE AND THROAT: Nose without bleeding or purulent nasal discharge. No sinus tenderness. Mucous membranes pink and moist. No oral lesions noted. No oral thrush. NECK: Trachea midline. Nontender supple CARDIAC: Regular rate and rhythm. No murmurs, rubs or gallops heard RESPIRATORY: Diminished breath sounds but clear to auscultation. ABDOMEN: Soft, non-tender, nondistended. Bowel sounds present and normoactive. EXTREMITIES: No clubbing, cyanosis, or edema. No calf tenderness NEUROLOGICAL: Grossly nonfocal PSYCHIATRIC: Appropriate mood and affect. Normal insight and judgment LINE: No evidence of infection. Assessment & Plan Remarks MRSA septicemia, secondary to T11-T12 osteo - KIESHA negative - -baseline ESR 38, CRP 11 -CRP better - MRI showed abnormal signal involving the dura in the lower thoracic and upper lumbar spine with heterogenous enhancement of T11 and T12 suggest underlying infectious process/osteomyelitis. No obvious epidural collection - BC (+) 10/31-11/04 Diane albicans (+) BC, likely line, line removed 11/09 (originally placed 11/02) Severe low back pain, due to osteo - better Acute kidney injury - likely due to IV contrast - ?Vanco -Slowly improving, good urine output COPD exacerbation, better Suspected PNA, better -CT Chest minimal effusions, mild basilar atelectasis. Patchy areas of minimal airspace infiltrate. -completed course of Levaquin Lung nodules -Multiple small parenchymal lung nodules noted on CT of the chest, recommended follow-up, ?emboli Prior Hx labial abscess Aug 2017 Hx livedo vasculopathy Recommendations Continue daptomycin - Plan 8-12 weeks IV - anticipated end date January 20 - will need dose adjustment at some point since creatinine improving Continue Diflucan - give until December 07 D/C plans - have IV Abx in infusion clinic [place] for D/C once arrangements made D/W Jazmín Boss MD Nov 26, 2017 12:26
--- NOTE | 2017-11-26 14:09 | HHI.PR ---
Subjective Remarks d/w her discharge needs up and ambulating around the room states needs Inhalers and pain meds missed her appt in [facility] because she was in here Objective Vitals Vital Signs Date Time Temp Pulse Resp B/P (MAP) Pulse Ox O2 Delivery O2 Flow Rate FiO2 11/26/17 12:00 89 11/26/17 11:15 95 Nasal Cannula 2.00 11/26/17 08:00 98.0 86 18 135/90 (105) 97 11/26/17 08:00 86 11/26/17 07:32 Room Air 11/26/17 05:20 97.9 86 16 134/98 (110) 97 11/26/17 04:00 90 11/26/17 00:11 86 11/26/17 00:00 97.9 85 16 136/91 (106) 97 11/25/17 20:00 97.8 84 17 135/79 (97) 97 11/25/17 19:00 Room Air 11/25/17 16:00 97.9 91 18 129/85 (100) 98 11/25/17 16:00 90 I/O 11/25/17 11/25/17 11/25/17 11/26/17 11/26/17 11/26/17 06:59 14:59 22:59 06:59 14:59 22:59 # Voids 3 # Bowel Movements 1 Result Diagram: 11/23/17 0632 11/26/17 0524 Imaging Last Impressions Thoracic Spine MRI 11/24/17 0000 Signed Impressions: Service Date/Time: Friday, November 24, 2017 12:11 - CONCLUSION: Increased diffuse signal abnormality of the T11 and T12 vertebral bodies as well as signal abnormality of the T11-12 disc and adjacent prevertebral soft tissues. These findings have progressed when compared to the prior examination of 11/01/2017. Findings and progression suspicious for discitis/osteomyelitis. No evidence of extension into the central canal. No central canal narrowing. Vertebral body height and shape within normal limits. Also in the differential diagnosis is dialysis related spondyloarthropathy. Fito Walton MD Central Venous Line 11/20/17 0000 Signed Impressions: Service Date/Time: Monday, November 20, 2017 00:00 - CONCLUSION: Uncomplicated central venous catheter removal. Domenic Pulido MD Catheter Placement X-Ray 11/10/17 0600 Signed Impressions: Service Date/Time: Friday, November 10, 2017 08:52 - CONCLUSION: Uncomplicated line placement as above. Rip Camarillo MD Chest CT 11/03/17 0000 Signed Impressions: Service Date/Time: Friday, November 03, 2017 22:37 - CONCLUSION: Minimal effusions. Mild basilar atelectasis. Patchy areas of minimal airspace infiltrate. Multiple small parenchymal lung nodules which should be followed Domenic Pulido MD Abdomen/Pelvis CT 11/03/17 0000 Signed Impressions: Service Date/Time: Friday, November 03, 2017 22:37 - CONCLUSION: 1. Small bilateral pleural effusions with mild basilar atelectasis the lungs. No acute findings within the abdomen and pelvis. Moderate constipation of the right colon. Melchor Caceres MD Lumbar Spine X-Ray 11/01/17 0000 Signed Impressions: Service Date/Time: Wednesday, November 01, 2017 18:18 - CONCLUSION: No acute disease. Valente Prasad MD Lumbar Spine MRI 11/01/17 0000 Signed Impressions: Service Date/Time: Wednesday, November 01, 2017 17:21 - CONCLUSION: Abnormal signal involving the dura in the lower thoracic and upper lumbar spine with heterogeneous enhancement of T11 and T12 suggest underlying infectious process/osteomyelitis. No obvious epidural collections at this time.. Valente Prasad MD Chest X-Ray 10/30/172031 Signed Impressions: Service Date/Time: Monday, October 30, 2017 21:48 - CONCLUSION: No acute disease. Domenic Davis MD Objective Remarks awake and alert, anicteric Vas cath in place no rales- no rales, no wheezing regular rhythm abdomen flabby, soft, nontender extremities- moves both LE spontaneously - Procedures Echocardiogram 11/03/2017 The left ventricular systolic function is low normal with an estimated ejection fraction in the range of 50- 55%. Trace mitral valve regurgitation. There is trace tricuspid valve regurgitation. A/P Problem List: (1) COPD (chronic obstructive pulmonary disease) ICD Code: J44.9 - Chronic obstructive pulmonary disease Status: Chronic (2) Hypoxia ICD Code: R09.02 - Hypoxia Status: Acute (3) Chronic back pain ICD Code: M54.9 - Dorsalgia, unspecified; G89.29 - Other chronic pain Status: Acute (4) MRSA bacteremia ICD Code: R78.81 - Bacteremia Status: Acute Assessment and Plan 47-year-old female admitted secondary to an exacerbation of back pain suspected to be T11-T12 osteomyelitis, with persisting MRSA bacteremia. 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 Continue daptomycin and Diflucan per infectious disease. Follow cultures. Repeat cultures today MRI showed abnormal signal involving the dura in the lower thoracic and upper lumbar spine with heterogenous enhancement of T11 and T12 suggest underlying infectious process/osteomyelitis. No obvious epidural collection, BC (+) 10/31-11/04 Diane albicans (+) BC, likely line, removed 11/09 (originally placed 11/02), complete course of Levaquin for Pneumonia, Lung Nodules Multiple small parenchymal lung nodules noted on CT of the chest, recommended follow-up, ?emboli repeat MRI done - worsening - d/w ID- no pockets PICC 11/25 placed - site good- Acute kidney injury: Secondary to acute tubular necrosis contrast and vancomycin. Patient has developed acute tubular necrosis after receiving contrast studies and she was on IV vancomycin Appreciate nephrology following. Status post hemodialysis on 11/11. 11/13. Nonoliguric. Improving Creatinine 2.35 on hold HD. Renal functions stabilizing- non oliguric Vas-Cath - remove today . Off HD non oliguric Follow BMP Avoid nephrotoxins Suspected pneumonia Completed course of Levaquin. Symptoms resolved. Hypertension Controlled on Procardia 60 mg XL daily prn Clonidine COPD continue DuoNeb, Symbicort, Mucinex. Continue to wean oral prednisone now on 10 mg daily for four more days until Obesity Strongly recommended diet and exercise as outpatient Chronic back pain continue pain meds as OP on Dilaudid- ff by pain management in [place] DVT prophylaxis Lovenox No changes to anterior assessment. Discharge Planning Continue IV Antibiotics per ID recs. Problem Qualifiers (1) Chronic back pain: Qualified Codes: M54.5 - Low back pain; G89.29 - Other chronic pain Greg Graves MD Nov 26, 2017 14:09
[2017-11-26] MEDS: DAPTOMYCIN IV SCH (20:04)
[2017-11-26] MEDS: MONTELUKAST SODIUM 10 MG TAB PO SCH (20:04)
[2017-11-26] MEDS: SODIUM CHLORIDE 0.9% IV SCH (20:04)
[2017-11-27] MEDS: DIAZEPAM 5 MG TAB PO PRN ×2 (00:04→08:15)
[2017-11-27] MEDS: HYDROmorphone HCL 4 MG TAB PO PRN ×4 (00:05→12:07)
[2017-11-27 00:30] VITALS: BP 144/81; PULSE 89; RESP 18; TEMP 98.6; O2SAT 92
[2017-11-27 03:44] VITALS: PULSE 88
[2017-11-27] MEDS: CYCLOBENZAPRINE HCL 10 MG TAB PO PRN ×2 (04:12→08:16)
[2017-11-27 06:05] VITALS: BP 126/70; PULSE 85; RESP 17; TEMP 98.4; O2SAT 93
[2017-11-27 08:00] VITALS: BP 147/96; PULSE 97; RESP 20; TEMP 97.8; O2SAT 94
--- NOTE | 2017-11-27 08:10 | HHI.PR ---
Subjective Remarks up and ambulating comfortable no chest discomfort states again- requesting for pain meds- goes to [facility] for pain management no PCP- going to patient assistance to set up with one states no problem with BMs Objective Vitals Vital Signs Date Time Temp Pulse Resp B/P (MAP) Pulse Ox O2 Delivery O2 Flow Rate FiO2 11/27/17 06:05 98.4 85 17 126/70 (88) 93 11/27/17 03:44 88 11/27/17 00:30 98.6 89 18 144/81 (102) 92 11/26/17 23:45 88 11/26/17 22:57 98 11/26/17 22:45 Nasal Cannula 2.00 11/26/17 21:45 98.4 83 18 137/74 (95) 98 11/26/17 19:00 Room Air 11/26/17 16:00 97.8 78 20 121/77 (92) 95 11/26/17 16:00 86 11/26/17 12:00 89 11/26/17 12:00 97.9 89 16 142/84 (103) 94 11/26/17 11:15 95 Nasal Cannula 2.00 I/O 11/26/17 11/26/17 11/26/17 11/27/17 11/27/17 11/27/17 07:00 15:00 23:00 07:00 15:00 23:00 Intake Total 960 ml 960 ml Output Total 1000 ml 1900 ml Balance -40 ml -940 ml Intake Oral 960 ml 960 ml Output Urine Total 1000 ml 1900 ml # Bowel Movements 1 0 Result Diagram: 11/23/17 0632 11/26/17 0524 Imaging Last Impressions Thoracic Spine MRI 11/24/17 0000 Signed Impressions: Service Date/Time: Friday, November 24, 2017 12:11 - CONCLUSION: Increased diffuse signal abnormality of the T11 and T12 vertebral bodies as well as signal abnormality of the T11-12 disc and adjacent prevertebral soft tissues. These findings have progressed when compared to the prior examination of 11/01/2017. Findings and progression suspicious for discitis/osteomyelitis. No evidence of extension into the central canal. No central canal narrowing. Vertebral body height and shape within normal limits. Also in the differential diagnosis is dialysis related spondyloarthropathy. Fito Walton MD Central Venous Line 4/20/18 0000 Signed Impressions: Service Date/Time: Monday, November 20, 2017 00:00 - CONCLUSION: Uncomplicated central venous catheter removal. Domenic Pulido MD Catheter Placement X-Ray 11/10/17 0600 Signed Impressions: Service Date/Time: Friday, November 10, 2017 08:52 - CONCLUSION: Uncomplicated line placement as above. Rip Camarillo MD Chest CT 11/03/17 0000 Signed Impressions: Service Date/Time: Friday, November 03, 2017 22:37 - CONCLUSION: Minimal effusions. Mild basilar atelectasis. Patchy areas of minimal airspace infiltrate. Multiple small parenchymal lung nodules which should be followed Domenic Pulido MD Abdomen/Pelvis CT 11/03/17 0000 Signed Impressions: Service Date/Time: Friday, November 03, 2017 22:37 - CONCLUSION: 1. Small bilateral pleural effusions with mild basilar atelectasis the lungs. No acute findings within the abdomen and pelvis. Moderate constipation of the right colon. Melchor Caceres MD Lumbar Spine X-Ray 11/01/17 0000 Signed Impressions: Service Date/Time: Wednesday, November 01, 2017 18:18 - CONCLUSION: No acute disease. Valente Prasad MD Lumbar Spine MRI 11/01/17 0000 Signed Impressions: Service Date/Time: Wednesday, November 01, 2017 17:21 - CONCLUSION: Abnormal signal involving the dura in the lower thoracic and upper lumbar spine with heterogeneous enhancement of T11 and T12 suggest underlying infectious process/osteomyelitis. No obvious epidural collections at this time.. Valente Prasad MD Chest X-Ray 10/30/172031 Signed Impressions: Service Date/Time: Monday, October 30, 2017 21:48 - CONCLUSION: No acute disease. Domenic Davis MD Objective Remarks awake and alert, anicteric Vas cath in place no rales- no rales, no wheezing regular rhythm abdomen flabby, soft, nontender PICC line- no sing so of infection extremities- moves both LE spontaneously , no edema; - Procedures Echocardiogram 11/03/2017 The left ventricular systolic function is low normal with an estimated ejection fraction in the range of 50- 55%. Trace mitral valve regurgitation. There is trace tricuspid valve regurgitation. A/P Problem List: (1) COPD (chronic obstructive pulmonary disease) ICD Code: J44.9 - Chronic obstructive pulmonary disease Status: Chronic (2) Hypoxia ICD Code: R09.02 - Hypoxia Status: Acute (3) Chronic back pain ICD Code: M54.9 - Dorsalgia, unspecified; G89.29 - Other chronic pain Status: Acute (4) MRSA bacteremia ICD Code: R78.81 - Bacteremia Status: Acute Assessment and Plan 47-year-old female admitted secondary to an exacerbation of back pain suspected to be T11-T12 osteomyelitis, with persisting MRSA bacteremia. 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 Continue daptomycin and rifampicin - till 01/20 and Diflucan till 12/07 per infectious disease. MRI showed abnormal signal involving the dura in the lower thoracic and upper lumbar spine with heterogenous enhancement of T11 and T12 suggest underlying infectious process/osteomyelitis. No obvious epidural collection, BC (+) 10/31-11/04 Diane albicans (+) BC, likely line, removed 11/09 (originally placed 11/02), complete course of Levaquin for Pneumonia, Lung Nodules Multiple small parenchymal lung nodules noted on CT of the chest, recommended follow-up, ?emboli repeat MRI done - worsening - d/w ID- no pockets PICC 11/25 placed - site good- Acute kidney injury: Secondary to acute tubular necrosis contrast and vancomycin. Patient has developed acute tubular necrosis after receiving contrast studies and she was on IV vancomycin Appreciate nephrology following. Status post hemodialysis on 11/11. 11/13. Nonoliguric. Improving Creatinine 2.35 on hold HD. Renal functions stabilizing- non oliguric Vas-Cath - removed. Off HD non oliguric Avoid nephrotoxins Suspected pneumonia Completed course of Levaquin. Symptoms resolved. Hypertension Controlled on Procardia 60 mg XL daily prn Clonidine COPD continue DuoNeb, Symbicort, Mucinex. Continue to wean oral prednisone now on 10 mg daily for four more days until Obesity Strongly recommended diet and exercise as outpatient Chronic back pain continue pain meds as OP on Dilaudid- ff by pain management in [place] DVT prophylaxis Lovenox No changes to anterior assessment. Discharge Planning Continue IV Antibiotics per ID recs. HOme today- CM assisting with OP arrangements Problem Qualifiers (1) Chronic back pain: Qualified Codes: M54.5 - Low back pain; G89.29 - Other chronic pain Greg Graves MD Nov 27, 2017 08:10
[2017-11-27] MEDS: SODIUM CHLORIDE 0.9% FLUSH 10 ML FLUSH IV FLUSH SCH ×3 (08:15)
[2017-11-27] MEDS: LACTOBACILLUS ACIDOPHILUS TAB PO SCH ×2 (08:16→12:01)
[2017-11-27] MEDS: predniSONE 10 MG TAB PO SCH (08:16)
[2017-11-27] MEDS: DOCUSATE SODIUM 100 MG CAP PO SCH (08:16)
[2017-11-27] MEDS: FLUCONAZOLE 200 MG TAB PO SCH (08:16)
[2017-11-27] MEDS: NIFEdipine 60 MG SUSTAINED RELEASE TAB PO SCH (08:16)
[2017-11-27] MEDS: RIFAMPIN 150 MG CAP PO SCH (08:17)
[2017-11-27] MEDS: DULoxetine HCl DR 30 MG CAP PO SCH (08:17)
[2017-11-27] MEDS: ASPIRIN 325 MG TAB PO SCH (08:17)
[2017-11-27] MEDS: BUDESONIDE-FORMOTEROL 160/4.5 MCG INHALER INH SCH (08:20)
[2017-11-27] MEDS ORDERED: NIFE60TA8 PO (08:20)
[2017-11-27] MEDS ORDERED: PRED10 PO (08:20)
[2017-11-27] MEDS ORDERED: DIFL200T PO (08:20)
[2017-11-27] MEDS ORDERED: SYMB160A INH (08:20)
[2017-11-27] MEDS ORDERED: ALBU6.7H INH (08:23)
[2017-11-27] MEDS ORDERED: RIFA150C2 PO (08:23)
[2017-11-27] MEDS ORDERED: DILA4TAB10 PO (08:23)
--- NOTE | 2017-11-27 08:30 | HHI.DS ---
Discharge Summary Admission Date Oct 30, 2017 at 22:31 Discharge Date: Nov 27, 2017 Admitting Diagnosis Acute exacerbation COPD. Chronic low back pain. (1) MRSA bacteremia ICD Code: R78.81 - Bacteremia Diagnosis: Principal Status: Acute (2) COPD (chronic obstructive pulmonary disease) ICD Code: J44.9 - Chronic obstructive pulmonary disease Diagnosis: Secondary Status: Chronic (3) Hypoxia ICD Code: R09.02 - Hypoxia Diagnosis: Secondary Status: Acute (4) Chronic back pain ICD Code: M54.9 - Dorsalgia, unspecified; G89.29 - Other chronic pain Diagnosis: Secondary Status: Acute Procedures Echocardiogram 11/03/2017 The left ventricular systolic function is low normal with an estimated ejection fraction in the range of 50- 55%. Trace mitral valve regurgitation. There is trace tricuspid valve regurgitation. Brief History - From Admission This is a 47-year-old female with a PMH of COPD, Anxiety, Depression and Chronic Back Pain was brought to the ER by EMS secondary to significant SOB and back pain. States symptoms have been ongoing for 2-3 days, reports non- productive cough which is exacerbating her back pain. Pain is severe, constant , worse w/ deep breath, 9/10. On Dilaudid PO at home, does not wish to escalate to IV. Denies fever, chills or chest pain. On arrival, BP 161/95, HR 126, O2 sat 95% on 7L. Temp 99.7. WBC 13.3. Chemistry essentially unremarkable. CXR with no acute findings. S/p Decadron and DuoNeb in ER in addition to Toradol. While in ER, pt w/ O2 sat 88% on RA. CBC/BMP: 11/23/17 0632 11/26/17 0524 Significant Findings Laboratory Tests Test 11/25/17 06:45 11/26/17 05:24 Total Creatine Kinase 23 U/L (26-192) Blood Urea Nitrogen 43 MG/DL (7-18) Creatinine 2.00 MG/DL (0.50-1.00) Albumin 3.2 GM/DL (3.4-5.0) Aspartate Amino Transf (AST/SGOT) 12 U/L (15-37) Estimat Glomerular Filtration Rate 27 ML/MIN (>89) Imaging Last Impressions Thoracic Spine MRI 11/24/17 0000 Signed Impressions: Service Date/Time: Friday, November 24, 2017 12:11 - CONCLUSION: Increased diffuse signal abnormality of the T11 and T12 vertebral bodies as well as signal abnormality of the T11-12 disc and adjacent prevertebral soft tissues. These findings have progressed when compared to the prior examination of 11/01/2017. Findings and progression suspicious for discitis/osteomyelitis. No evidence of extension into the central canal. No central canal narrowing. Vertebral body height and shape within normal limits. Also in the differential diagnosis is dialysis related spondyloarthropathy. Fito Walton MD Central Venous Line 11/20/17 0000 Signed Impressions: Service Date/Time: Monday, November 20, 2017 00:00 - CONCLUSION: Uncomplicated central venous catheter removal. Domenic Pulido MD Catheter Placement X-Ray 11/10/17 0600 Signed Impressions: Service Date/Time: Friday, November 10, 2017 08:52 - CONCLUSION: Uncomplicated line placement as above. Rip Camarillo MD Chest CT 11/03/17 0000 Signed Impressions: Service Date/Time: Friday, November 03, 2017 22:37 - CONCLUSION: Minimal effusions. Mild basilar atelectasis. Patchy areas of minimal airspace infiltrate. Multiple small parenchymal lung nodules which should be followed Domenic Pulido MD Abdomen/Pelvis CT 11/03/17 0000 Signed Impressions: Service Date/Time: Friday, November 03, 2017 22:37 - CONCLUSION: 1. Small bilateral pleural effusions with mild basilar atelectasis the lungs. No acute findings within the abdomen and pelvis. Moderate constipation of the right colon. Melchor Caceres MD Lumbar Spine X-Ray 11/01/17 0000 Signed Impressions: Service Date/Time: Wednesday, November 01, 2017 18:18 - CONCLUSION: No acute disease. Valente Prasad MD Lumbar Spine MRI 11/01/17 0000 Signed Impressions: Service Date/Time: Wednesday, November 01, 2017 17:21 - CONCLUSION: Abnormal signal involving the dura in the lower thoracic and upper lumbar spine with heterogeneous enhancement of T11 and T12 suggest underlying infectious process/osteomyelitis. No obvious epidural collections at this time.. Valente Prasad MD Chest X-Ray 10/30/172031 Signed Impressions: Service Date/Time: Monday, October 30, 2017 21:48 - CONCLUSION: No acute disease. Domenic Davis MD PE at Discharge awake and alert, anicteric Vas cath in place no rales- no rales, no wheezing regular rhythm abdomen flabby, soft, nontender PICC line- no sing so of infection extremities- moves both LE spontaneously , no edema; - Pt update on day of discharge afebrile up and ambulating no complains- just making sure she gets her pain mes d/w her- ff up with pain management MD in [facility] Hospital Course 47-year-old female admitted secondary to an exacerbation of back pain suspected to be T11-T12 osteomyelitis, with persisting MRSA bacteremia. 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 Continue daptomycin and rifampicin - till 01/20 and Diflucan till 12/07 per infectious disease. MRI showed abnormal signal involving the dura in the lower thoracic and upper lumbar spine with heterogenous enhancement of T11 and T12 suggest underlying infectious process/osteomyelitis. No obvious epidural collection, BC (+) 10/31-11/04 Diane albicans (+) BC, likely line, removed 11/09 (originally placed 11/02), complete course of Levaquin for Pneumonia, Lung Nodules Multiple small parenchymal lung nodules noted on CT of the chest, recommended follow-up, ?emboli repeat MRI done - worsening - d/w ID- no pockets PICC 11/25 placed - site good- Acute kidney injury: Secondary to acute tubular necrosis contrast and vancomycin. Patient has developed acute tubular necrosis after receiving contrast studies and she was on IV vancomycin Appreciate nephrology following. Status post hemodialysis on 11/11. 11/13. Nonoliguric. Improving Creatinine 2.35 on hold HD. Renal functions stabilizing- non oliguric Vas-Cath - removed. Off HD non oliguric Avoid nephrotoxins Suspected pneumonia Completed course of Levaquin. Symptoms resolved. Hypertension Controlled on Procardia 60 mg XL daily prn Clonidine COPD continue DuoNeb, Symbicort, Mucinex. Continue to wean oral prednisone now on 10 mg daily for four more days until Obesity Strongly recommended diet and exercise as outpatient Chronic back pain continue pain meds as OP on Dilaudid- ff by pain management in [place] DVT prophylaxis Lovenox No changes to anterior assessment. Discharge Planning Continue IV Antibiotics per ID recs. HOme today- CM assisting with OP arrangements Pt Condition on Discharge: Stable Discharge Disposition: Discharge Home Discharge Time: > 30 minutes Discharge Instructions DIET: Follow Instructions for: Heart Healthy Diet Speech Therapy-Diet Recommends: Regular Activities you can perform: Weight Bearing as Cliff Follow up Referrals: PCP Follow-up - As Per Protocol with patient assistanc New Medications: Fluconazole (Diflucan) 200 Mg Tab 200 MG PO DAILY for Infection for 10 Days, #10 TAB Nifedipine ER 24 HR (Nifedipine ER 24 HR) 60 Mg Tab 60 MG PO DAILY for HTN for 30 Days, #30 TAB Prednisone (Prednisone) 10 Mg Tab 10 MG PO DAILY for HAD for 1 Day, #1 TAB Rifampin (Rifampin) 150 Mg Cap 300 MG PO Q12HR for Infection, #110 CAP Continued Medications: Albuterol 6.7 GM Inh (Proventil Hfa 6.7 GM Inh) 90 Mcg/Act Aer 2 PUFF INH Q4-6H PRN for SHORTNESS OF BREATH for 30 Days, #1 INHALER 0 Refills ( This prescription has been renewed) Aspirin (Aspirin) 325 Mg Tab 325 MG PO DAILY, #30 TAB Budesonide-Formoterol Inh (Symbicort Inh) 160-4.5 Mcg/Act Aero 2 PUFF INH Q12HR for HAD, #1 INHALER 1 Refill (This prescription has been renewed) Duloxetine (Cymbalta ) 30 Mg Capdr 30 MG PO DAILY for Depression Control for 30 Days, #30 CAP 1 Refill Hydromorphone (Dilaudid) 4 Mg Tab 4 MG PO Q4-6H PRN for Pain Management, #20 TAB 0 Refills (This prescription has been renewed) Loratadine (Claritin) 10 Mg Tablet 10 MG PO DAILY for COPD exac, #30 TAB Montelukast (Montelukast) 10 Mg Tab 10 MG PO HS for COPD, #30 TAB Discontinued Medications: Azithromycin (Azithromycin) 250 Mg Tab 250 MG PO DAILY for COPD exac, #3 TAB Ibuprofen (Ibuprofen) 800 Mg Tab 800 MG PO Q6HR PRN for PAIN, #40 TAB 0 Refills Greg Graves MD Nov 27, 2017 08:30
[2017-11-27] MEDS: ENOXAPARIN SODIUM 30 MG/0.3 ML SYRINGE SQ SCH (12:01)
[2017-11-30] MEDS ORDERED: DAPT500P IV (12:22)
== END 2017-11-27 12:25 | disposition home or self-care (01) | DRG 871 ==
LOC: NEPC 20:18 → NEDA 22:31 → N06A 23:30 → N04B 11-01 18:49 → N04A 11-14 15:07
PROVIDERS: ADMIT Internal Medicine; ATTEND Internal Medicine
PROC: 3E0F7GC Introduction of Other Therapeutic Substance into Respiratory Tract, Via Natural or Artificial Opening (ICD-10-PCS; 2017-10-30)
PROC: 05HM33Z Insertion of Infusion Device into Right Internal Jugular Vein, Percutaneous Approach (ICD-10-PCS; 2017-11-02)
PROC: B246ZZ4 Ultrasonography of Right and Left Heart, Transesophageal (ICD-10-PCS; 2017-11-06)
PROC: 05HM33Z Insertion of Infusion Device into Right Internal Jugular Vein, Percutaneous Approach (ICD-10-PCS; principal; 2017-11-10)
PROC: 5A1D70Z Performance of Urinary Filtration, Intermittent, Less than 6 Hours Per Day (ICD-10-PCS; 2017-11-10)
DX: A41.02 Sepsis due to Methicillin resistant Staphylococcus aureus (principal); N17.0 Acute kidney failure with tubular necrosis; J96.21 Acute and chronic respiratory failure with hypoxia; J90 Pleural effusion, not elsewhere classified; B49 Unspecified mycosis; J18.9 Pneumonia, unspecified organism; J44.0 Chronic obstructive pulmonary disease with (acute) lower respiratory infection; M46.24 Osteomyelitis of vertebra, thoracic region; J44.1 Chronic obstructive pulmonary disease with (acute) exacerbation; I08.1 Rheumatic disorders of both mitral and tricuspid valves; M46.46 Discitis, unspecified, lumbar region; G89.29 Other chronic pain; R91.8 Other nonspecific abnormal finding of lung field; G47.30 Sleep apnea, unspecified; K21.9 Gastro-esophageal reflux disease without esophagitis; F41.9 Anxiety disorder, unspecified; F32.9 Major depressive disorder, single episode, unspecified; M62.838 Other muscle spasm; K59.09 Other constipation; R23.1 Pallor; I77.6 Arteritis, unspecified; E66.9 Obesity, unspecified; Z68.34 Body mass index [BMI] 34.0-34.9, adult; Z87.891 Personal history of nicotine dependence; Z86.14 Personal history of Methicillin resistant Staphylococcus aureus infection; R00.0 Tachycardia, unspecified; I10 Essential (primary) hypertension
CPT/HCPCS: 36556; 36569; 71046; 71260; 72110; 72146; 72157; 72158; 74177; 76937; 77001; 80048; 80053; 80069; 80074; 80076; 80202; 81001; 82550; 82565; 82570; 83605; 83735; 83935; 84100; 84300; 85007; 85025; 85027; 85610; 85652; 85730; 86140; 86403; 87040; 87071; 87102; 87106; 87186; 87205; 87493; 90935; 93306; 93312; 93320; 93325; 94150; 94640; 94664; 94667; 94668; 96372; 96374; 96375; A9579; C1752; J0712; J0878; J1100; J1580; J1642; J1644; J1650; J1885; J1940; J1956; J2248; J2360; J2405; J2920; J3370; J7030; J7040; J7512; Q4081; Q9963; Q9967